=== PATIENT | female | born 1955 | race Caucasian/White ===

== ENCOUNTER → 2016-11-27 | Outpatient (CLI) | payer OTHER ==
[~2016-11-27] MED LIST: ALBU18002 PO; ALBU1AER9 INH; ASPI325T45 PO; ASPI81TA28 PO; ATOR10TA88 PO; AZITTAB PO; CLOT10TR MT; CLR10 PO; DIPH25TA24 PO; DULO-24 PO; FEXO1TAB46 PO; FLEC50TA PO; FLUT0.15; FURO80TA63 PO; METF-384 PO; METO100T7 PO; MONT1TAB3 PO; MRN5 PO; NAPR1TAB9 PO; POTA-335 PO; POTA10CA28 PO; POTA20TA13 PO; PRLSR20 PO; PROAIR INH; PROC1TAB5 PO; SENN-63 PO; SPIR50TA3 PO; SYMIN160 INH; TIOTCAP INH; ULT/50 PO; UMEC1INH INH; XRL20 PO
--- NOTE | 2016-11-27 09:32 | DIAGNOSTIC IMAGING REPORT ---
CT OF THE CHEST WITHOUT IV CONTRAST CLINICAL HISTORY: Solitary pulmonary nodule. COMPARISON STUDY: Chest CT April 04, 2016. CT DOSE: 984.15 mGy.cm TECHNIQUE: Axial images of the chest were obtained without IV contrast. Images were reviewed in the axial, sagittal, and coronal planes. IV contrast was not administered for this examination. FINDINGS: No enlarged axillary, mediastinal or hilar lymph nodes are present. The previously described 3.9 x 2.3 cm hyperdense anterior mediastinal mass is similar to prior exams. 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 The size of the heart is at the upper limits of normal. There is no pericardial effusion. The central airways are patent. Mild emphysema is noted. A 1.4 cm irregular subpleural nodule within the superior segment of the left lower lobe shown on image 143 of 336 has increased in size since exam of April 04, 2016. No additional suspicious pulmonary nodules are present. No suspicious osseous lesions are identified. A 1.3 cm lesion arising from the upper pole of the left kidney measures just above water attenuation. IMPRESSION: 1. Interval increase in size of the 1.4 cm irregular subpleural nodule within the superior segment of the left lower lobe. This is highly suggestive of bronchogenic carcinoma. 2. No thoracic lymphadenopathy. 3. Mild emphysema. 4. 1.3 cm lesion arising from the upper pole of the left kidney which is suboptimally assessed on this unenhanced exam. This measures just above water attenuation. This is indeterminate although a cyst is favored. 5. No significant change in the 3.9 cm hyperdense anterior mediastinal mass since earlier exams. 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 Electronically signed by: Sandor Ibrahim M.D. 11/27/2016 9:30 AM Dictated Date/Time: 11/27/2016 9:16 AM
== END | disposition home or self-care (01) ==
LOC: C.CTS 08:56
PROVIDERS: ATTEND Internal Medicine Pulmonary Disease
DX: R91.1 Solitary pulmonary nodule (principal)

== ENCOUNTER → 2016-12-03 | Outpatient (CLI) | payer OTHER ==
[2016-12-03 17:52] LABS: BLOOD UREA NITROGEN 36 mg/dl (7-18); BUN/CREATININE RATIO 27.7 (10-20); CALCIUM 9.7 mg/dl (8.5-10.1); CARBON DIOXIDE 27 mmol/L (21-32); CHLORIDE 100 mmol/L (98-107); GLUCOSE 112 mg/dl (70-99); POTASSIUM 4.5 mmol/L (3.5-5.1); SODIUM 137 mmol/L (136-145)
== END | disposition home or self-care (01) ==
LOC: C.LABBFT 13:09
PROVIDERS: ATTEND Internal Medicine
DX: N28.9 Disorder of kidney and ureter, unspecified (principal)

== ENCOUNTER → 2016-12-17 | Outpatient (CLI) | payer OTHER ==
--- NOTE | 2016-12-17 10:46 | DIAGNOSTIC IMAGING REPORT ---
PET/CT CLINICAL HISTORY: Pulmonary nodule. COMPARISON STUDY: Chest CT dated 11/27/2016 and 08/24/2015. Abdominal CT dated 08/26/2013. TECHNIQUE: One hour following the IV administration of 15.98 mCi of F-18 FDG, PET/CT examination was performed from the orbital meatal line through the bony pelvis. Noncontrast CT is performed for the purposes of anatomic correlation and attenuation correction. Note that this does not reflect a diagnostic CT examination. Images were reviewed on a separate [employer] independent workstation. Fused images were obtained. Standard uptake values reported are maximum values within the region of interest expressed in gm/mL. FINDINGS: PET FINDINGS: Head and neck: There is expected physiologic activity within the visualized brain parenchyma at the skull base and the salivary glands. Low level pharyngeal activity is indeterminant. Thorax: Evaluation of the thorax demonstrates expected physiologic myocardial activity. Again seen is a 12 mm irregular left lower lobe pulmonary nodule seen on axial image #82. This is demonstrably FDG avid, with a maximum SUV of 4.4. No additional pulmonary lesions are seen. No FDG avid mediastinal lymphadenopathy is identified. There is a lobulated soft tissue nodule in the anterior mediastinum measuring 2.2 x 4.2 cm. This has not significant changed in size dating back to the 08/24/2015 examination and contains small calcifications. This was not demonstrably FDG avid by PET. Abdomen and pelvis: There is expected activity within the liver, spleen, kidneys, renal collecting system, and bladder. Low-level bowel activity is likely within physical limits. Unenhanced CT images: Visualized brain parenchyma at the skull base is within normal limits. The bony orbits are intact and the orbital contents are normal as visualized. The paranasal sinuses and mastoid air cells appear clear. A calcified sialolith is noted in the right parotid gland. The salivary glands are otherwise normal as visualized. The thyroid gland is mildly atrophic. No cervical lymphadenopathy is seen. The thoracic aorta is normal in caliber. The heart is normal in size and without pericardial effusion. A small hiatal hernia is noted. There is no axillary or hilar adenopathy. Advanced emphysema is noted. There is subpleural reticulation seen throughout both lungs. No airspace consolidation is identified typical for pneumonia and there is no pleural effusion. See above under PET findings for assessment of a left lower lobe pulmonary nodule. The unenhanced liver, pancreas, spleen, and adrenal glands are grossly normal. The kidneys demonstrate cortical atrophy and are without hydronephrosis. Small right renal cysts are again noted. These were also seen on the [address] The gallbladder is surgically absent. No bowel obstruction is identified. Findings suggest previous appendectomy. There is moderate colonic fecal retention. No intraperitoneal free air or abdominal ascites is identified. There is a fat-containing umbilical hernia. No abdominal, pelvic, or inguinal lymphadenopathy is seen. The bladder is decompressed and grossly unremarkable. The uterus and adnexa are normal as visualized. The skeletal structures are osteopenic. No lytic or blastic lesions are identified. Advanced sclerotic change is noted in the sacroiliac joints. Degenerative change is also present throughout the spine. IMPRESSION: 1. Again seen is a 12 mm irregular left lower lobe pulmonary nodule. This is FDG avid and should be considered neoplastic until proven otherwise. 2. There is no evidence of FDG avid metastatic disease. 3. A lobulated and calcification containing anterior mediastinal lesion has not significantly changed dating back to 08/24/2015 and was not demonstrably FDG avid. This is of low suspicion. 4. No FDG avid mediastinal or hilar adenopathy is identified. 5. Emphysema. 6. Additional changes as above. Electronically signed by: Wilner Melo M.D. 12/17/2016 10:44 AM Dictated Date/Time: 12/17/2016 10:32 AM
== END | disposition home or self-care (01) ==
LOC: C.PET 08:12
PROVIDERS: ATTEND Surgery
DX: R91.1 Solitary pulmonary nodule (principal)

== ENCOUNTER → 2016-12-22 | Outpatient (CLI) | payer OTHER ==
[~2016-12-22] MED LIST changes: -ASPI325T45 PO; -CLOT10TR MT; -CLR10 PO; -DIPH25TA24 PO; -FEXO1TAB46 PO; -NAPR1TAB9 PO; -SENN-63 PO; -TIOTCAP INH
[2016-12-22 12:32] LABS: BASO % 0.8 %; BASO ABS # 0.09 K/uL (0-0.2); COMPLETE YES; EOS % 2.7 %; HEMATOCRIT 42.8 % (37-47); IG% 1.1 %; LYMPH % 26.7 %; LYMPH ABS # 2.93 K/uL (1.2-3.4); MEAN CELL VOLUME 90.3 fL (80-100); MEAN CORPUSCULAR HGB CONC 33.2 g/dl (32-36); MEAN PLATELET VOLUME 9.3 fL (7.4-10.4); MONO % 7.8 %; NEUT % 60.9 %; PLATELET COUNT 369 K/uL (130-400); RED BLOOD COUNT 4.74 M/uL (4.2-5.4); WHITE BLOOD COUNT 10.96 K/uL (4.8-10.8)
== END | disposition home or self-care (01) ==
LOC: C.LABPBG 09:38
PROVIDERS: ATTEND Surgery
DX: Z01.812 Encounter for preprocedural laboratory examination (principal); R91.1 Solitary pulmonary nodule

== ENCOUNTER 2016-12-24 05:07 | Day surgery (SDC) | payer OTHER ==
[2016-12-17 14:24] VITALS: BMI 40.0
[~2016-12-24] VITALS: Ht 167.6 cm; Wt 111.8 kg
[~2016-12-24 05:07] MED LIST changes: -ALBU18002 PO; -ASPI81TA28 PO; -ATOR10TA88 PO; -AZITTAB PO; -DULO-24 PO; -FLEC50TA PO; -FLUT0.15; -FURO80TA63 PO; -METF-384 PO; -METO100T7 PO; -MONT1TAB3 PO; -MRN5 PO; -POTA10CA28 PO; -POTA20TA13 PO; -PRLSR20 PO; -PROAIR INH; -PROC1TAB5 PO; -SPIR50TA3 PO; -SYMIN160 INH; -ULT/50 PO; -UMEC1INH INH; -XRL20 PO
[2016-12-24 05:46] VITALS: BP 124/76; PULSE 74; TEMP 36.8; O2SAT 97; Ht 167.6 cm; Wt 111.8 kg
[2016-12-24] MEDS ORDERED: LACTATED RINGER'S 1000ML 1,000 ML IV SCH (06:00)
[2016-12-24] MEDS ORDERED: FENTANYL CITRATE INJ 50 MCG/1 ML 2 ML VIAL ONE (06:47)
[2016-12-24] MEDS ORDERED: MIDAZOLAM HCL 1 MG/ML 2ML VIAL ONE (06:47)
[2016-12-24] MEDS ORDERED: ALBUT/IPRATROP 3MG/0.5MG NEB 3 ML VIAL ONE (06:54)
--- NOTE | 2016-12-24 06:57 | History & Physical Bridge Note ---
H&P Re-Evaluation Bridge Note: I have examined the patient, reviewed the History & Physical and in the interval since the performance of the History & Physical I have noted the following changes of clinical significance: No changes noted
[2016-12-24] MEDS ORDERED: CLINDAMYCIN PHOS 150 MG/ML 2 ML VIAL ONE (07:26)
--- NOTE | 2016-12-24 07:40 | Discharge Instructions ---
Discharge Instructions Visit Reason for Visit: Left Lung Mass Discharge Discharge Diagnosis / Problem: Left Lung Mass Discharge Goals Goal(s): Learn about illness Activity Recommendations Activity Limitations: resume your previous activity (in 24 hours) Anesthesia . Post Anesthesia Instructions: If you have had General Anesthesia or IV Sedation: * Do not drive today. * Resume driving when surgeon permits. * Do not make important decisions or sign legal documents today. * Call surgeon for: 1. Temperature elevations greater than 101 degrees F. 2. Uncontrollable pain. 3. Excessive bleeding. 4. Persistent nausea and vomiting. 5. Medication intolerance (nausea, vomiting or rash). * For nausea and vomiting use only clear liquids such as: tea, soda, bouillon until nausea subsides, then gradually increase diet as tolerated. * If you have any concerns or questions, call your surgeon's office. If physician is unavailable and it is an emergency, call 911 or go to the nearest emergency room. . Instructions / Follow-Up Instructions / Follow-Up 1. You may cough up blood. Call physician if excessive amount noted. 2. Keep your scheduled appointment with Dr. Sands on January 15 @11:45. Diet Recommendations Recommended Home Diet: resume previous diet Pending Studies Studies pending at discharge: no Medical Emergencies . Who to Call and When: Medical Emergencies: If at any time you feel your situation is an emergency, please call 911 immediately. . Non-Emergent Contact Non-Emergency issues call your: Surgeon Call Non-Emergent contact if: you have a fever, your pain is not controlled . . "Provider Documentation" section prepared by Manuel Parikh.
[2016-12-24] MEDS ORDERED: PROPOFOL IV EMULSION 10 MG/ML 20 ML VIAL IV ONE (07:42)
[2016-12-24] MEDS ORDERED: GLYCOPYRROLATE INJ 0.2 MG/ML VIAL ONE ×2 (07:42)
[2016-12-24] MEDS ORDERED: ONDANSETRON INJ 2 MG/ML 2 ML VIAL ONE (07:42)
[2016-12-24] MEDS ORDERED: LIDOCAINE HCL 2% 2 ML VIAL (20MG/ML) ONE (07:42)
[2016-12-24] MEDS ORDERED: DEXAMETHASONE SOD INJ 4 MG/ML VIAL ONE (07:42)
[2016-12-24] MEDS ORDERED: ROCURONIUM BROMIDE 10 MG/ML 5 ML VIAL ONE (07:42)
[2016-12-24] MEDS ORDERED: NEOSTIGMINE METHYLSULFATE 5 MG/5 ML SYR ONE (07:42)
[2016-12-24] MEDS ORDERED: EpHEDrine SULFATE INJ 50 MG/ML AMP IV PRN (08:00)
[2016-12-24] MEDS ORDERED: FENTANYL CITRATE INJ 50 MCG/1 ML 2 ML VIAL IV PRN (08:00)
[2016-12-24] MEDS ORDERED: HYDROmorphone INJ 2 MG/ML SYR/VIAL IV PRN (08:00)
[2016-12-24] MEDS ORDERED: ONDANSETRON INJ 2 MG/ML 2 ML VIAL IV PRN (08:00)
[2016-12-24] MEDS ORDERED: LABETALOL HCL IV 5 MG/ML 20ML IV PRN (08:00)
[2016-12-24] MEDS ORDERED: FLUMAZENIL 0.1 MG/1 ML 10 ML VIAL IV PRN (08:00)
[2016-12-24] MEDS ORDERED: PHENYLEPHRINE 100MCG/ML 5ML SYR IV PRN (08:00)
[2016-12-24] MEDS ORDERED: NALOXONE HCL 0.4 MG/1 ML VIAL/CARP IV PRN (08:00)
[2016-12-24] MEDS ORDERED: MEPERIDINE HCL 25 MG/ML CARP IV PRN (08:00)
[2016-12-24] MEDS ORDERED: ATROPINE SULFATE 0.1 MG/ML 5ML SYR IV PRN (08:00)
--- NOTE | 2016-12-24 08:35 | DIAGNOSTIC IMAGING REPORT ---
INTRAOPERATIVE FLUOROSCOPIC SPOT FILM OF THE CHEST CLINICAL HISTORY: NAVIGATIONAL BRONCH COMPARISON STUDY: 08/26/2015 FINDINGS: 94 seconds of fluoroscopic time was utilized. A single fluoroscopic spot image demonstrates a bronchoscopic catheter projected over the left midlung zone. IMPRESSION: Fluoroscopic spot image of the chest during navigational bronchoscopy Electronically signed by: Torres Li M.D. 12/24/2016 8:33 AM Dictated Date/Time: 12/24/2016 8:32 AM
--- NOTE | 2016-12-24 08:57 | DIAGNOSTIC IMAGING REPORT ---
CHEST ONE VIEW PORTABLE CLINICAL HISTORY: Left lung mass. History fiber optic bronchoscopy. Evaluate for pneumothorax. COMPARISON STUDY: 08/26/2013 FINDINGS: The heart is mildly enlarged. There is elevation of the interstitium, possibly indicating mild pulmonary vascular congestion/fluid overload. There is no lobar consolidation. There is no pneumothorax.[ IMPRESSION: No evidence of pneumothorax status post bronchoscopy. Electronically signed by: Torres Li M.D. 12/24/2016 8:55 AM Dictated Date/Time: 12/24/2016 8:54 AM
--- NOTE | 2016-12-24 09:01 | Anesthesiology Progress Note ---
Anesthesia Post Op Note Date & Time Dec 24, 2016 at 09:00 Vital Signs Pain Intensity: 0 Vital Signs Past 12 Hours Date Time Temp Pulse Resp B/P Pulse Ox O2 Delivery O2 Flow Rate FiO2 12/24/16 08:50 66 20 112/65 100 Mask 10 12/24/16 08:40 72 20 120/67 100 Mask 10 12/24/16 08:31 36.4 74 22 120/69 100 Mask 10 12/24/16 05:46 36.8 74 16 124/76 97 Room Air Notes Mental Status: alert / awake / arousable, participated in evaluation Pt Amnestic to Procedure: Yes Nausea / Vomiting: adequately controlled Pain: adequately controlled Airway Patency, RR, SpO2: stable & adequate BP & HR: stable & adequate Hydration State: stable & adequate Anesthetic Complications: no major complications apparent The patient did well. She is awake and at her baseline.
[2016-12-24 09:15] VITALS: BP 112/57; PULSE 66; TEMP 36.8; O2SAT 96
[2016-12-24 09:45] VITALS: BP 110/54; PULSE 68; O2SAT 93
[2016-12-24 10:14] VITALS: BP 130/65; PULSE 71; TEMP 36.8; O2SAT 95
--- NOTE | 2016-12-24 10:19 | OPERATIVE REPORT ---
DATE OF OPERATION: 12/24/2016 PREOPERATIVE DIAGNOSIS: Hypermetabolic left lower lobe mass. POSTOPERATIVE DIAGNOSIS: Same. PROCEDURE: 1. Endobronchial ultrasound with biopsy. 2. Navigational bronchoscopy with biopsy. SURGEON: Dr. Sands. BOARD OF DIRECTORS: Jakob Parikh PA-C. ANESTHESIA: General anesthesia endotracheal intubation. INDICATION FOR PROCEDURE AND FINDINGS: Ms. Schilling is a smoker who was found to have a nodule which is hypermetabolic in her left lower lobe. A PET scan showed no evidence of metastatic disease. I brought her to the operating room today on 12/24/2016 for staging endobronchial ultrasound with biopsy as well as a biopsy of this mass. The patient underwent an uncomplicated biopsy. We got good lymph node samples at least 4 lymph node stations. We got into no bleeding. We also biopsied this mass with the brushes and needle biopsies with washings. The preliminary did not show evidence of cancer. She tolerated it well. OPERATION AND FINDINGS: PROCEDURE: The patient was brought to the operating room and laid in supine position. General anesthesia induced and endotracheal intubation was performed. After appropriate timeout had been called and prophylactic antibiotics had been given the endobronchial ultrasound scope was placed. This was a left lower lobe mass. For this reason, I initially went to the right level 10 area and biopsied this 3 separate times under ultrasound guidance. I then went to the right level 4 and did the same. I then went to the level 7 node and biopsied this 3 separate times. We got good lymph node samples on each of these 3 stations. I then went to the level 4 and this node was very small. I biopsied it several times. We did not get good lymph node tissue from this. I then went to level 10 area on the left and biopsied this several times. We did get good lymph node tissue with this. All the lymph node tissue appeared to be benign. We really got into no significant bleeding. I irrigated out both airways. I then removed the endobronchial ultrasound scope and placed a regular fiberoptic scope. I closely inspected each airway. I did not see any abnormalities down to the tertiary airways. We saw no bleeding from the endobronchial ultrasound biopsy sites. We then registered the airways without difficulty. I then went down to the left lower lobe bronchus and placed the navigational probe into the proper position and navigated to the lesion. The lesion was peripheral in the superior segment left lower lobe. We were able to get out there to it nicely under computer guidance. I then placed the radial ultrasound probe and could see that we were close to the mass. We then did several brushes of this as well as several needle biopsies. I then did washings. She tolerated it quite well. We really got into no bleeding. I slowly withdrew the fiberoptic bronchoscope and suctioned out any mucous or sputum that we saw. She tolerated it quite well. I attest to the content of the Intraoperative Record and any orders documented therein. Any exceptio ns are noted below.
[2017-03-29] MEDS ORDERED: METF-384 PO (13:01)
[2017-03-29] MEDS ORDERED: ATOR10TA88 PO (13:01)
[2017-03-29] MEDS ORDERED: SYMIN160 INH (13:01)
[2017-03-29] MEDS ORDERED: METO100T7 PO (13:01)
[2017-03-29] MEDS ORDERED: SPIR50TA3 PO (13:01)
[2017-03-29] MEDS ORDERED: FLEC50TA PO (13:01)
[2017-03-29] MEDS ORDERED: DULO-24 PO (13:01)
[2017-03-29] MEDS ORDERED: MONT1TAB3 PO (13:01)
[2017-03-29] MEDS ORDERED: ULT/50 PO (13:01)
[2017-03-29] MEDS ORDERED: PRLSR20 PO (13:33)
[2017-03-29] MEDS ORDERED: FURO80TA63 PO (13:33)
[2017-03-29] MEDS ORDERED: ASPI81TA28 PO (14:24)
[2017-03-29] MEDS ORDERED: FLUT0.15 (14:24)
[2017-03-29] MEDS ORDERED: UMEC1INH INH (14:24)
== END 2016-12-24 10:18 | disposition home or self-care (01) ==
LOC: C.OR 05:07
PROVIDERS: ATTEND Surgery
DX: R91.1 Solitary pulmonary nodule (principal); R06.02 Shortness of breath; J44.9 Chronic obstructive pulmonary disease, unspecified; F17.210 Nicotine dependence, cigarettes, uncomplicated; R73.09 Other abnormal glucose; N28.9 Disorder of kidney and ureter, unspecified; M54.9 Dorsalgia, unspecified; E11.9 Type 2 diabetes mellitus without complications; E78.00 Pure hypercholesterolemia, unspecified; E55.9 Vitamin D deficiency, unspecified; E04.1 Nontoxic single thyroid nodule; G47.30 Sleep apnea, unspecified; I48.0 Paroxysmal atrial fibrillation

== ENCOUNTER 2017-01-14 09:32 | Inpatient (IN) | payer OTHER ==
[2017-01-12 15:42] VITALS: BMI 40.0
[~2017-01-14] VITALS: Ht 167.6 cm; Wt 113.4 kg
[2017-01-14] VITALS (18 sets, daily range): BP systolic 83–129; BP diastolic 41–71; PULSE 61–78; TEMP 36.6–37.8; O2SAT 94–98; Ht 167.6 cm; Wt 113.4 kg
[~2017-01-14 09:32] MED LIST changes: +SODIUM CHLORIDE 0.9% 1000ML 1,000 ML IV SCH
[2017-01-14] MEDS ORDERED: MIDAZOLAM HCL 1 MG/ML 2ML VIAL ONE ×2 (11:48→11:52)
[2017-01-14] MEDS ORDERED: FENTANYL CITRATE INJ 50 MCG/1 ML 2 ML VIAL ONE ×2 (11:52→19:23)
[2017-01-14] MEDS ORDERED: SODIUM CHLORIDE 0.9% PF 50 ML VIAL ONE (12:05)
[2017-01-14] MEDS ORDERED: BUPIVACAINE LIPOSOME 1/3% 266 MG/20 ML VIAL INFIL ONE (12:05)
[2017-01-14] MEDS ORDERED: ALBUT/IPRATROP 3MG/0.5MG NEB 3 ML VIAL INH ONE (12:15)
[2017-01-14] MEDS ORDERED: PHENYLEPHRINE 100MCG/ML 5ML SYR IV PRN (12:15)
[2017-01-14] MEDS ORDERED: EpHEDrine SULFATE INJ 50 MG/ML AMP IV PRN (12:15)
[2017-01-14] MEDS ORDERED: ATROPINE SULFATE 0.1 MG/ML 5ML SYR IV PRN (12:15)
[2017-01-14] MEDS ORDERED: ONDANSETRON INJ 2 MG/ML 2 ML VIAL IV PRN ×2 (12:15→19:15)
[2017-01-14] MEDS ORDERED: HYDROmorphone INJ 2 MG/ML SYR/VIAL IV PRN (12:15)
[2017-01-14] MEDS ORDERED: LIDOCAINE HCL 2% 2 ML VIAL (20MG/ML) ONE ×2 (13:17→13:52)
[2017-01-14] MEDS ORDERED: ONDANSETRON INJ 2 MG/ML 2 ML VIAL ONE (13:52)
[2017-01-14] MEDS ORDERED: NEOSTIGMINE METHYLSULFATE 5 MG/5 ML SYR ONE (13:52)
[2017-01-14] MEDS ORDERED: GLYCOPYRROLATE INJ 0.2 MG/ML VIAL ONE (13:52)
[2017-01-14] MEDS ORDERED: PROPOFOL IV EMULSION 10 MG/ML 20 ML VIAL IV ONE (13:52)
[2017-01-14] MEDS ORDERED: DEXAMETHASONE SOD INJ 4 MG/ML VIAL ONE (13:52)
[2017-01-14] MEDS ORDERED: PHENYLEPHRINE HCL INJ 10 MG/ML VIAL ONE (15:07)
[2017-01-14] MEDS ORDERED: SODIUM CHLORIDE 0.9% 1000ML 1,000 ML IV SCH (19:15)
[2017-01-14] MEDS ORDERED: OXYCODONE HCL IR 5 MG TAB (IMMEDIATE RELEASE) PO PRN (19:15)
--- NOTE | 2017-01-14 19:57 | Critical Care Consultation ---
Critical Care Consultation Date of Consultation: Jan 14, 2017. Attending Physician: Deuce Sands MD Reason for Consultation: Robotic wedge resection of left lower lobe mass with lymph node biopsies, and limited thoracotomy to remove left lower lobe History of Present Illness Marycarmen Schilling is a 61-year-old female smoker who presented to the ICU status post robotic wedge resection of a left lower lobe mass including lymph node biopsy by Dr. Deuce Sands. She was extubated upon arriving to the ICU with anesthesiology still present. She was initially hypotensive on both peripheral blood pressure cuff and arterial line. Patient had fluids running blood pressure continued to improve. During the procedure it was determined that the mass was indeed non-small cell lung carcinoma but appear to be squamous cell and therefore required robotic wedge resection of that left lower lobe mass. According to operative record there was some difficulty with ventilation and therefore the robotic aspect was terminated and the surgeon proceeded with a limited thoracotomy performed on the anterior lateral left side. Upon arriving in the ICU patient was still drowsy and under significant sedation effects. As she became slightly more arousable she was vulgar but was overwhelmingly agreeable. I need his current history for current lung mass was found due to a workup for exertional dyspnea. During a recent CT 14 mm left lower lobe nodule was discovered to be slightly larger than 2 years prior and was thus followed up. This patient is a continued tobacco user; 2 packs per day times 53 years. Recent pulmonary function studies were normal with an FEV1 of 2.28 L, normal diffusion capacity when corrected for alveolar volume, slight elevation of the residual volume according to surgeons outpatient records. Patient has started following up with Dr. Cortez Pacheco neon glass blower for solitary pulmonary nodule as well. Otherwise patient follows with Dr. Wright for proximal atrial fibrillation at which point she underwent a nuclear stress test in 2008 which was normal revealing no myocardial ischemia. EF of 60% with mild mitral regurg/tricuspid regurg on a 2009 echocardiogram. Patient is diabetic on metformin and follows with Dr. Galo for primary care. Patient was still under sedation during my visit. She did appear to be in pain when disturbing her left thorax by either rolling her or moving her left arm. She did state her pain was a 3 out of 10; however, this did not seem consistent with her behavior. Otherwise patient complained of no other pain no numbness or tingling of extremities, no fever or chills, no chest pain or abdominal pain. Past Medical/Surgical History Medical Problems: Appendicitis Cholecystitis Allergic rhinitis Depression Pelvic pain Candidiasis of the mouth Edema Osteopenia Vaginal candidiasis Gout Diabetes mellitus Gastroesophageal reflux disease Herpes zoster Dyslipidemia Hypertension Morbid obesity paroxysmal atrial fibrillation Pyloric channel ulcer Sleep apnea Solitary pulmonary nodule Solitary thyroid nodule Umbilical hernia Urinary tract infection Urinary incontinence Vitamin D deficiency Surgical history Appendectomy Cholecystectomy Colonoscopy Dilation and curettage Knee arthroplasty Oral surgery Thoracotomy Left lower lobe wedge resection Family History Diabetes mellitus SISTER FHx: arthritis SISTER FHx: coronary artery disease MOTHER SISTER Hypertension SISTER Social History Smoking Status: Current Every Day Smoker (2 packs per day since age 8) Smokeless Tobacco Use: No Alcohol Use: socially (mainly on holidays) Drug Use: none Marital Status: Occupation Status: unemployed Allergies Coded Allergies: Diltiazem (Verified Allergy, Severe, SHORTNESS OF BREATH AND SWELLING OF HANDS AND FACE, 01/12/17) Adhesives (Verified Allergy, Mild, BLISTERS, 01/12/17) Latex1 -Allergic Contact Dermititis (Verified Allergy, Mild, RASH, 01/12/17 ) Indomethacin (Unverified Allergy, Unknown, per pulm note , 01/12/17) Penicillins (Verified Allergy, Unknown, WELTS IN MOUTH AND SPREAD TO BODY , 01/12/17) Codeine (Verified Adverse Reaction, Mild, N&V&GI PAIN, 01/12/17) Paroxetine (Verified Adverse Reaction, Unknown, GI SYMPTOMS, 01/12/17) Varenicline (Verified Adverse Reaction, Unknown, GI SYMPTOMS, 01/12/17) Home Medications Scheduled Aspirin (Aspirin Ec), 81 MG PO AFTERNOON Atorvastatin (Lipitor), 10 MG PO HS Budesonide/Formoterol Fumarate (Symbicort 160/4.5 Inhaler), 2 PUFFS INH BID Duloxetine Hcl (Cymbalta), 40 MG PO QAM Flecainide Acetate (Tambocor), 50 MG PO TID Fluticasone Propionate (Nasal) (Flonase Allergy Relief), 1 SPRAY NA DAILY Furosemide (Lasix), 160 MG PO BID Metformin Hcl (Glucophage), 1,000 MG PO BID Metoprolol Succinate (Toprol Xl), 100 MG PO TID Montelukast Sodium (Singulair), 10 MG PO HS Omeprazole (Prilosec), 20 MG PO BID Potassium Chloride (Micro-K Ext Rel), 20 MEQ PO 5XD Spironolactone (Aldactone), 50 MG PO BID Tramadol Hcl (Ultram), 100 MG PO TID Umeclidinium [place] (Incruse Ellipta), 1 PUFF INH QAM Scheduled PRN Albuterol Sulfate (Proair Hfa), 2 PUFFS INH QID PRN for SOB/Wheezing Current Inpatient Medications Current Inpatient Medications Medications (Trade) Dose Ordered Sig/Armani Route Start Time Stop Time Status Last Admin Dose Admin Sodium Chloride (Nss 1000ml) 1,000 ml @ 15 mls/hr Q24H IV 01/14/17 06:00 01/15/17 05:59 Aspirin (Ecotrin Tab) 81 mg DAILY PO 01/15/17 09:00 02/14/17 08:59 Atorvastatin Calcium (Lipitor Tab) 10 mg HS PO 01/14/17 21:00 02/13/17 20:59 Budesonide/ Formoterol Fumarate (Symbicort 160/ 4.5 Inh) 2 puffs BID INH 01/14/17 21:00 02/13/17 20:59 Duloxetine HCl (Cymbalta Cap) 40 mg QAM PO 01/15/17 09:00 02/14/17 08:59 Flecainide Acetate (Tambocor Tab) 50 mg TID PO 01/14/17 21:00 02/13/17 20:59 Fluticasone Propionate (Flonase Nasal [place]) 1 sprays DAILY NA 01/15/17 09:00 02/14/17 08:59 Metoprolol Succinate (Toprol Xl Tab) 100 mg TID PO 01/14/17 21:00 02/13/17 20:59 Montelukast Sodium (Singulair Tab) 10 mg HS PO 01/14/17 21:00 02/13/17 20:59 Tramadol HCl (Ultram Tab) 100 mg TID PRN PO 01/14/17 21:00 02/13/17 20:59 Pantoprazole Sodium (Protonix Tab) 40 mg BID PO 01/14/17 21:00 02/13/17 20:59 Miscellaneous Information (Order Awaiting Action) 1 ea QS N/A 01/15/17 00:00 02/14/17 00:00 Insulin Aspart (novoLOG ASPART) SLIDING SCALE G... ACHS SC 01/14/17 21:00 02/13/17 20:59 Albuterol/ Ipratropium 3 ml 3 ml QIDR INH 01/14/17 20:00 02/13/17 19:59 Acetaminophen/ Empty Bag (Ofirmev Iv/ Empty Iv Bag 100ml) 100 ml @ 400 mls/hr Q8H IV 01/14/17 20:00 02/13/17 19:14 Enoxaparin Sodium (Lovenox Inj) 40 mg DAILY SQ 01/15/17 09:00 02/14/17 08:59 UNV Ondansetron HCl (Zofran Inj) 4 mg Q4H PRN IV 01/14/17 19:15 02/13/17 19:14 Docusate Sodium 100 mg 100 mg BID PO 01/14/17 21:00 02/13/17 20:59 Clindamycin Phosphate/Dextrose (Cleocin Iv/ Dextrose Add-[place] 100ML) 106 ml @ 100 mls/hr Q6H IV 01/14/17 20:00 01/15/17 03:04 Metoclopramide HCl (Reglan Inj) 10 mg Q8 IV. 01/14/17 22:00 01/15/17 21:59 Morphine Sulfate (MoRPHine SULFATE INJ) Q1H PRN IV 01/14/17 19:15 01/28/17 19:14 Oxycodone HCl 5 mg 5 mg Q6H PRN PO 01/14/17 19:15 01/28/17 19:14 Sodium Chloride (Nss 1000ml) 1,000 ml @ 75 mls/hr [id number] IV 01/14/17 19:15 02/13/17 19:14 Nicotine (Nicoderm Cq 14MG Patch) 1 patch QAM TD 01/15/17 09:00 02/14/17 08:59 Miscellaneous (Remove Nicoderm Patch) 1 ea HS N/A 01/14/17 21:00 02/13/17 20:59 Review of Systems Review of systems unable to be completely obtained secondary to patient's sedation during arrival to ICU Physical Exam Date Time Temp Pulse Resp B/P Pulse Ox O2 Delivery O2 Flow Rate FiO2 01/14/17 19:39 37 91 22 111/55 90 Humidified Oxygen 50 01/14/17 12:11 66 16 96 Nasal Cannula 2.0 01/14/17 09:55 36.6 61 18 129/71 97 Room Air Vital Signs - as noted Laboratory Data - as noted Physical Exam: General - NAD, drowsy but arousable, cursing at medical staff in the room Eyes - PERRL, EOMI No icterus, gaze conjugate ENT - Mucosa dry with bloody residue throughout, no lesions or candidiasis Neck - Supple, trachea midline, no masses or lymphadenopathy, no JVD or bruits Lungs - No paradoxical chest wall movement, coarse to auscultation bilaterally with scattered wheezing throughout, no rales, or rhonchi, chest tube on left lateral side with surgical dressing dry and intact and draining to water seal; no crepitus or air leak noted Heart - Reg rate and rhythm, No murmur, rubs, clicks, or gallops appreciated Abdomen - BS present, no bruits noted, tympanic to percussion, soft, nontender, nondistended, no organomegaly Extremities -minimal edema, pedal pulses intact Neuro - A&O X 3 Strength extremities equal and appropriate bilaterally Reflexes: Bicep, brachioradialis, patellar, and plantar normal and equal CN:PERRL, EOMI, no facial asymmetry, uvula/tongue midline Laboratory Results Last 24 Hours Test 01/14/17 09:50 Bedside Glucose 118 mg/dl Outpatient labs on 12/22/2016 WBCs 10.96 Hemoglobin 14.2 Hematocrit 42.8 Platelets 369 Sodium 137 Potassium 4.5 Chloride 100 CO2 27 Anion gap 10 Calcium 9.7 Glucose 112 BUN 36 Creatinine 1.3 Diagnostic Results CHEST ONE VIEW PORTABLE HISTORY: Postop. Left lower lobectomy. COMPARISON: Chest 12/24/2016. FINDINGS: There is a left-sided chest tube which terminates in the left upper lung zone. Tiny left pneumothorax identified. Low lung volumes with small bilateral pleural effusions and bibasilar densities. The heart remains mildly enlarged. Mild pulmonary vascular congestion has improved. IMPRESSION: 1. Tiny left pneumothorax. Left-sided chest tube is in good position. 2. Small bilateral pleural effusions and bibasilar densities. Electronically signed by: John Land M.D. 01/14/2017 8:22 PM Dictated Date/Time: 01/14/2017 8:21 PM Assessment & Plan (1) Diabetes (2) Hypotension (3) GERD (gastroesophageal reflux disease) (4) HTN (hypertension) (5) Tobacco abuse (6) Paroxysmal atrial fibrillation (7) Emphysema lung (8) Pulmonary nodule, left (9) Lung mass (10) Hypertension Respiratory: * Postop Day # 0, saturation issues noted during seven-hour procedure * Continue to provide O2 as needed * Chest tube management per Dr. Sands * Continue respiratory regimen including: * DuoNeb every 6 hours * Symbicort BID * Singulair 10mg HS * Surgical pain may be treated with morphine per protocol every hour * ANI: Avoid CPAP/BiPAP secondary to lung resection * Provide incentive spirometer/flutter valve * Monitor on telemetry ID: * CBC in the morning, trend WBCs * Prophylactic antibiotics status post lung resection * Clindamycin 900 mg 2 bags * Monitor fever curve Cardiac: * Hypotensive with arterial line readings less than 90; peripheral blood pressure cuff reading low 100s * Continue fluids: Normal saline 75 mL per hour * No current indication for vasopressors * Continue home medications including: * Metoprolol succinate 100 mg TID once hypotension resolves * Flecainide Acetate 50mg TID * Atorvastatin 10 mg at bedtime * Aspirin 81 mg daily * Monitor on telemetry: Known paroxysmal A. fib currently in normal sinus rhythm at increased risk for atrial fibrillation status post thoracic surgery. Neuro: * Neuro checks per protocol s/p sedation * Continue home Cymbalta 40 mg every morning * Tobacco abuse/dependency: Provide 14 mg NicoDerm patch every morning and remove each night Endocrine * Diabetic on metformin at home, will not continue metformin in the immediate post-surgical setting during admission * Sliding scale insulin with NovoLog in place * Accu-Cheks per protocol * As diet is advanced provide type 2 diabetes heart healthy diet GI: * GERD: Continue Protonix 40 mg by mouth twice a day * Currently still sedated hold diet; initiation of diet pending Dr. Sands's recommendations * Provide Colace 100 mg BID : * Continue normal saline resuscitation 75 mL per hour * Follow daily labs * Strict I's and O's; Shahid in place to gravity MSK: * Out of bed to chair tomorrow * Consider PT/OT CCT: 45 minutes; Not including any billable procedures. Thank you for including us in the care of this patient. Please review Dr. Sunny Maldonado's addendum for further recommendations. I have personally evaluated and examined this patient. I agree with assessment and plan of Ailyn Pressley PA-C. Patients with pain well-controlled postoperatively. May need a little more volume expansion with crystalloid. Successfully extubated by anesthesia upon arrival to the ICU.
--- NOTE | 2017-01-14 20:05 | Anesthesiology Progress Note ---
Anesthesia Post Op Note Date & Time Jan 14, 2017 at 19:58 Vital Signs Pain Intensity: 0 Vital Signs Past 12 Hours Date Time Temp Pulse Resp B/P Pulse Ox O2 Delivery O2 Flow Rate FiO2 01/14/17 19:50 78 22 103/54 91 Humidified Oxygen 50 01/14/17 19:39 37 91 22 111/55 90 Humidified Oxygen 50 01/14/17 12:11 66 16 96 Nasal Cannula 2.0 01/14/17 09:55 36.6 61 18 129/71 97 Room Air Notes Mental Status: alert / awake / arousable, participated in evaluation Pt Amnestic to Procedure: Yes Nausea / Vomiting: adequately controlled Pain: adequately controlled Airway Patency, RR, SpO2: stable & adequate BP & HR: stable & adequate Hydration State: stable & adequate Anesthetic Complications: no major complications apparent Procedure was changed from Robotic VATS to open thoracotomy at approximately 530. Tube malpositioning involving herniation of the bronchial cuff over the juju was also resolved around the same time. Case completed uneventfully. Given the long surgical time and anticipated fluid shifts, the patient was awakened in a seated position and was opening eyes spontaneously and following commands. A glidescope was placed to evaluate her hypopharynx and rule out significant soft tissue swelling.Her oxygen saturations on 50% FIO2 were 95% and she was pulling TV of 350-400 with a respiratory rate of 26. ETCO2 was 40. The patient's respiratory and hemodynamic parameters met criteria for extubation but looked mildly distressed and on questioning the patient shook her head "no" when asked if she "wanted the tube to come out" and shook her head yes when asked if we "should leave it in." She also nodded "yes" to a question of pain. Given this, the patient was given 100mcg of fentanyl after which she fell asleep and her RR went to 18, she still maintained excellent TV and oxygen saturations. She was thus transported to the ICU with an ambu bag on all monitors. Once in the ICU, she was again opening eyes spontaneously and following commands. This time when questioned, she nodded "yes" to removing the ETT and so this was done. The patient did well with extubation and maintained oxygen saturations in the low 90s. Full report was given to the record label internship, including the patient's history of sleep apnea requiring supplemental O2.
--- NOTE | 2017-01-14 20:23 | DIAGNOSTIC IMAGING REPORT ---
CHEST ONE VIEW PORTABLE HISTORY: Postop. Left lower lobectomy. COMPARISON: Chest 12/24/2016. FINDINGS: There is a left-sided chest tube which terminates in the left upper lung zone. Tiny left pneumothorax identified. Low lung volumes with small bilateral pleural effusions and bibasilar densities. The heart remains mildly enlarged. Mild pulmonary vascular congestion has improved. IMPRESSION: 1. Tiny left pneumothorax. Left-sided chest tube is in good position. 2. Small bilateral pleural effusions and bibasilar densities. Electronically signed by: John Land M.D. 01/14/2017 8:22 PM Dictated Date/Time: 01/14/2017 8:21 PM
--- NOTE | 2017-01-14 20:24 | OPERATIVE REPORT ---
DATE OF OPERATION: 01/14/2017 PREOPERATIVE DIAGNOSIS: Hypermetabolic mass, left lower lobe. POSTOPERATIVE DIAGNOSIS: Nonsmall cell lung carcinoma, left lower lobe. PROCEDURE: 1. Robotic wedge resection left lower lobe mass. 2. Robotic lobectomy with lymph node biopsies. 3. Limited thoracotomy to remove the left lower lobe. SURGEON: Dr. Sands. PROFESSOR OF FORESTRY: Jakob Parikh PA-C. INDICATION: This is a very nice 61-year-old smoker, found to have a hypermetabolic mass left lower lobe which was growing. After a long discussion, elected to proceed with a wedge resection of left lower lobe robotically and a robotic lobectomy if this indeed proved to be a nonsmall cell lung carcinoma as I suspected. On 01/14/2017 I took the patient to the operating room and did a robotic wedge resection of left lower lobe mass. Indeed, this was a nonsmall cell lung carcinoma and appeared to be a squamous cell carcinoma. I then mobilized the left lower lobe and took the vein and arterial branches in the posterior fissure. The patient then ran into some difficulty for ventilation. I elected to undock and remove the lobe as I was concerned about the patient's well being. Limited thoracotomy was performed anterolaterally and I divided the bronchus and the remaining fissure and delivered the mass off the field. She tolerated it well. PROCEDURE: The patient was brought to the operating room and placed in supine position. General anesthesia induced and endotracheal intubation was performed. The patient was placed in a right lateral decubitus position. Left chest prepped, draped in usual sterile fashion. Five separate ports were made, two 12 mm ports for the camera and the assistant to the ceo port and two 8 mm ports and a 5 mm port. These were done in about the ninth interspace and tenth interspace. Upon entering the chest we immediately came upon this mass. This was grasped and wedged out and delivered from the field in an Endobag. While waiting for the frozen section I took down the inferior pulmonary ligament, biopsies level 8 and level 9 nodes. I then got around the inferior pulmonary vein quite nicely. The patient's fissures were incomplete. I dissected up posteriorly all the way up to the main pulmonary artery and then the main left pulmonary artery. I then came back and dissected out the posterior fissure. The branch to the superior segment was identified. I then dissected in the fissure and this was a bit difficult as her fissure was incomplete but I finally got down to the artery. This was very slow going given the thickness of the incomplete fissure but finally was able to dissect out enough space where an Endo-DOUGLAS stapler was fired. I then fired a stapler across a large branch of the superior segment. I then came back and was dissecting off the artery and removed a lymph node and identified the lingular artery and then started completing the fissure when the patient ran into trouble. There was a problem with ventilation. I quickly undocked and did an anterior thoracotomy and completed the fissure quite quickly with a stapler and then completed the artery division with the stapler and then stapled the bronchus and delivered the specimen off the field. I dissected out level 10, 11 and 12 nodes. I could not get down to level 7 given the depth. Also I completely removed the pleura around the vagus nerve. I did not see level 5 and 6 node. I elected to close. 266 mg of Exparel was mixed with 60 mL total of saline and was injected into the 2nd to 11th interspace. Bleeding was well controlled. 0 Vicryl was used to close the muscle layers of all the port sites with a single stitch. 4-0 Monocryl was used to close all the incisions. I then used 2 separate #1 PDS pericostal sutures, closed the thoracotomy incision and 0 Polysorb was used to reapproximate the serratus and then the latissimus dorsi muscle. 4-0 Monocryl was used to reapproximate the skin. The patient tolerated it well. I attest to the content of the Intraoperative Record and any orders documented therein. Any exceptio ns are noted below.
[2017-01-14] MEDS: ALBUT/IPRATROP 3MG/0.5MG NEB 3 ML VIAL INH SCH (20:30)
[2017-01-14] MEDS: CLINDAMYCIN IV 900 MG in DEXTROSE 5% ADD-VANTAGE 100ML 100 ML IV SCH (20:43)
[2017-01-14] MEDS: ACETAMINOPHEN IV 1,000 MG in EMPTY BAG 0 ML IV SCH (20:43)
[2017-01-14] MEDS: DOCUSATE SODIUM 100 MG CAP PO SCH (20:47)
[2017-01-14] MEDS: MONTELUKAST SOD 10 MG TAB PO SCH (20:47)
[2017-01-14] MEDS: BUDESONIDE/FORMOTEROL FUMARATE 160/4.5 60 PUFFS/INHALER INH SCH (20:47)
[2017-01-14] MEDS: ATORVASTATIN 10 MG TAB PO SCH (20:47)
[2017-01-14] MEDS: PANTOprazole SOD 40 MG TAB PO SCH (20:47)
[2017-01-14] MEDS: METOPROLOL SUCC 50MG EXT REL TAB PO SCH (20:48)
[2017-01-14] MEDS: FLECAINIDE ACETATE 100 MG TAB PO SCH (20:48)
[2017-01-14] MEDS ORDERED: TRAMADOL HCL 50 MG TAB PO PRN (21:00)
[2017-01-14] MEDS: INSULIN ASPART 100 UNITS/ML 3 ML PEN SC SCH (21:06)
[2017-01-14] MEDS: MoRPHine SULFATE 2 MG/ML CARP IV PRN ×2 (21:46→23:40)
[2017-01-14] MEDS: METOCLOPRAMIDE HCL INJ 5 MG/ML 2 ML VIAL IV. SCH (21:47)
[2017-01-15] VITALS (25 sets, daily range): BP systolic 81–137; BP diastolic 35–86; PULSE 70–139; TEMP 35.5–36.9; O2SAT 91–97
[2017-01-15] MEDS: CLINDAMYCIN IV 900 MG in DEXTROSE 5% ADD-VANTAGE 100ML 100 ML IV SCH (01:43)
[2017-01-15] MEDS: MoRPHine SULFATE 2 MG/ML CARP IV PRN ×3 (02:14→15:54)
[2017-01-15] MEDS: ACETAMINOPHEN IV 1,000 MG in EMPTY BAG 0 ML IV SCH (03:51)
[2017-01-15] MEDS: METOCLOPRAMIDE HCL INJ 5 MG/ML 2 ML VIAL IV. SCH ×2 (05:35→14:19)
[2017-01-15 06:42] LABS: BASO % 0.1 %; BASO ABS # 0.01 K/uL (0-0.2); COMPLETE YES; HEMATOCRIT 36.1 % (37-47); IG% 0.5 %; LYMPH % 7.4 %; LYMPH ABS # 1.25 K/uL (1.2-3.4); MEAN CELL VOLUME 93.3 fL (80-100); MEAN CORPUSCULAR HEMOGLOBIN 30.2 pg (25-34); MEAN CORPUSCULAR HGB CONC 32.4 g/dl (32-36); MEAN PLATELET VOLUME 9.1 fL (7.4-10.4); MONO % 5.7 %; NEUT % 86.3 %; PLATELET COUNT 310 K/uL (130-400); RED BLOOD COUNT 3.87 M/uL (4.2-5.4); WHITE BLOOD COUNT 16.78 K/uL (4.8-10.8)
[2017-01-15] MEDS: INSULIN ASPART 100 UNITS/ML 3 ML PEN SC SCH ×4 (06:45→20:42)
[2017-01-15 06:54] LABS: PARTIAL THROMBOPLASTIN RATIO 1.1; PROTHROMBIN TIME (PATIENT) 10.7 SECONDS (9.0-12.0)
--- NOTE | 2017-01-15 07:03 | DIAGNOSTIC IMAGING REPORT ---
CHEST ONE VIEW PORTABLE CLINICAL HISTORY: s/p LLL COMPARISON STUDY: 01/14/2017 FINDINGS: Stable postoperative changes left hemithorax. Left-sided chest tube in good position. No significant residual pneumothorax. Mild left basilar atelectatic change. Plaque atelectasis right base unchanged IMPRESSION: Stable postoperative changes left hemithorax. No evidence pneumothorax. Electronically signed by: Bryan Johnson M.D. 01/15/2017 7:01 AM Dictated Date/Time: 01/15/2017 6:59 AM
[2017-01-15 07:15] LABS: BUN/CREATININE RATIO 23.6 (10-20); CALCIUM 8.1 mg/dl (8.5-10.1); CREATININE 1.3 mg/dl (0.60-1.20); POTASSIUM 5.6 mmol/L (3.5-5.1)
[2017-01-15] MEDS: ALBUT/IPRATROP 3MG/0.5MG NEB 3 ML VIAL INH SCH ×3 (07:26→19:55)
[2017-01-15] MEDS: DOCUSATE SODIUM 100 MG CAP PO SCH ×2 (08:50→20:37)
[2017-01-15] MEDS: FLUTICASONE PROPIONATE NA SPR 16 GM BTL SCH (08:50)
[2017-01-15] MEDS: BUDESONIDE/FORMOTEROL FUMARATE 160/4.5 60 PUFFS/INHALER INH SCH ×2 (08:50→20:37)
[2017-01-15] MEDS: ACETAMINOPHEN 325 MG TAB PO SCH ×3 (08:50→20:41)
[2017-01-15] MEDS: DULOXETINE HCL 20 MG CAP PO SCH (08:51)
[2017-01-15] MEDS: ASPIRIN 81 MG ECTAB PO SCH (08:51)
[2017-01-15] MEDS: PANTOprazole SOD 40 MG TAB PO SCH ×2 (08:51→20:39)
[2017-01-15] MEDS: METOPROLOL SUCC 50MG EXT REL TAB PO SCH ×3 (08:52→20:38)
[2017-01-15] MEDS: FLECAINIDE ACETATE 100 MG TAB PO SCH ×3 (08:52→20:39)
[2017-01-15] MEDS: ENOXAPARIN 40 MG/0.4 ML SYR SQ SCH (08:53)
[2017-01-15] MEDS: NICOTINE 14 MG/24 HR TDSY TD SCH (08:53)
--- NOTE | 2017-01-15 09:57 | Clinical Documentation Query ---
CLINICAL DOCUMENTATION QUERY 61-y/o female who has undergone robotic LLL wedge resection of lung. In your clinical opinion is this patient being managed for: ( ) CKD stage 3 ( ) Other explanation of clinical findings (Please Explain) ( ) Unable to determine (Please Define) ( ) Need to Discuss ( x) Not Agree The medical record reflects the following clinical findings, treatment, and risk factors. Clinical Indicators: BUN 31, Creatinine 1.30, GFR 43.6. These all appear congruent with patient's baseline. Treatment: daily PRP, IVF Risk Factors: Age Please clarify and document your clinical opinion in the progress notes and discharge summary. Terms such as "probable", "suspected", "likely", "questionable", "possible", or "still to be ruled out" are acceptable. IF IN AGREEMENT, YOU MUST DOCUMENT ABOVE DIAGNOSTIC STATEMENT IN DAILY PROGRESS NOTES AND DISCHARGE SUMMARY. This document is not part of the patient's record. The stages of CKD according to the [employer] are as follows: Stage I: GFR >90 Stage II: GFR 60-89 Stage III: GFR 30-59 Stage IV: GFR 15-29 Stage V: GFR <15 Thank You, Dioni Francis, RN [phone]
--- NOTE | 2017-01-15 10:43 | Critical Care Progress Note ---
Critical Care Progress Note Date of Service Jan 15, 2017. ICU Day ICU Day Number: [address] Maldonado Subjective Doing well this morning Pain is controlled however still a 6/10 States that she has no chest pain but difficult to take a deep breath review of 10 systems completed and negative aside from above Objective General: not in acute distress, resting in bed Skin: no rashes noted, no suspicious lesions, no areas of inflammations/ lacerations/ erythema noted, drainage site clean dry and intact CVS: S1/ S2 noted, RRR, no rubs/ murmurs noted, no cyanosis RVS: decreased to left base > right, occasionally coarse breath sounds noted, poor inspiration because of pain Neck: inspection WNL, full ROM of neck ABD: BSx4, no pain/ tenderness on palpation, no organomegaly MSK: inspection of all limbs WNL, motor and sensation intact in all limbs, no swelling/ pain on palpation of joints NVS: alert and oriented Lymph: No lymphadenopathy palpable Assessment & Plan 1. s/p left lower lobectomy for NSCLC 2. acute hypoxic respiratory failure secondary to difficult intubation/ prolonged procedure- resolved 3. Hypotensive- stable 4. DM 5. GERD 6. HTN 7. Tobacco abuse 8. PAF NVS Alert and oriented - pain control with Dilaudid and norco RVS - POD 1- improved saturation on 4 L of O2 - manipulate prn - Chest tube draining well mange per moris - duoneb q 6 h - symbicort bid - singular 1- mg hs - incentive akila and flutter valve ID: - monitor CBC - was given clinda CVS - continue to monitor - cont metoprolol, flecainide, atorvastatin and asa Endo - Sliding scale insulin with NovoLog in place - Accu-Cheks per protocol - As diet is advanced provide type 2 diabetes heart healthy diet GI: - protonix 40 mg po - colace bid : - monitor I&O ok to downgrade Resident Physician Supervision Note: Dr. Brody was resident physician during care of patient. I did not have the opportunity to evaluate this patient and she was transferred out of the ICU before my personal evaluation. I discussed the case with the resident and generally agree with the findings and plan. Documented By: Sunny Maldonado DO Data Medications: Current Inpatient Medications Medications (Trade) Dose Ordered Sig/Armani Route Start Time Stop Time Status Last Admin Dose Admin Aspirin (Ecotrin Tab) 81 mg DAILY PO 01/15/17 09:00 02/14/17 08:59 01/15/17 08:51 81 MG Atorvastatin Calcium (Lipitor Tab) 10 mg HS PO 01/14/17 21:00 02/13/17 20:59 Budesonide/ Formoterol Fumarate (Symbicort 160/ 4.5 Inh) 2 puffs BID INH 01/14/17 21:00 02/13/17 20:59 01/15/17 08:50 2 PUFFS Duloxetine HCl (Cymbalta Cap) 40 mg QAM PO 01/15/17 09:00 02/14/17 08:59 01/15/17 08:51 40 MG Flecainide Acetate (Tambocor Tab) 50 mg TID PO 01/14/17 21:00 02/13/17 20:59 01/15/17 08:52 50 MG Fluticasone Propionate (Flonase Nasal [place]) 1 sprays DAILY NA 01/15/17 09:00 02/14/17 08:59 01/15/17 08:50 1 SPRAYS Metoprolol Succinate (Toprol Xl Tab) 100 mg TID PO 01/14/17 21:00 02/13/17 20:59 01/15/17 08:52 100 MG Montelukast Sodium (Singulair Tab) 10 mg HS PO 01/14/17 21:00 02/13/17 20:59 Tramadol HCl (Ultram Tab) 100 mg TID PRN PO 01/14/17 21:00 02/13/17 20:59 01/15/17 00:29 100 MG Pantoprazole Sodium (Protonix Tab) 40 mg BID PO 01/14/17 21:00 02/13/17 20:59 01/15/17 08:51 40 MG Miscellaneous Information (Order Awaiting Action) 1 ea QS N/A 01/15/17 00:00 02/14/17 00:00 Insulin Aspart (novoLOG ASPART) SLIDING SCALE G... ACHS SC 01/14/17 21:00 02/13/17 20:59 01/14/17 21:06 2 UNITS Albuterol/ Ipratropium (Duoneb) 3 ml QIDR INH 01/14/17 20:00 02/13/17 19:59 01/15/17 07:26 3 ML Enoxaparin Sodium (Lovenox Inj) 40 mg DAILY SQ 01/15/17 09:00 02/14/17 08:59 01/15/17 08:53 40 MG Ondansetron HCl (Zofran Inj) 4 mg Q4H PRN IV 01/14/17 19:15 02/13/17 19:14 Docusate Sodium (coLACE CAP) 100 mg BID PO 01/14/17 21:00 02/13/17 20:59 01/15/17 08:50 100 MG Metoclopramide HCl (Reglan Inj) 10 mg Q8 IV. 01/14/17 22:00 01/15/17 21:59 01/15/17 05:35 10 MG Morphine Sulfate (MoRPHine SULFATE INJ) Q1H PRN IV 01/14/17 19:15 01/28/17 19:14 01/15/17 09:21 2 MG Oxycodone HCl (Roxicodone Immediate Rel Tab) 5 mg Q6H PRN PO 01/14/17 19:15 01/28/17 19:14 Nicotine (Nicoderm Cq 14MG Patch) 1 patch QAM TD 01/15/17 09:00 02/14/17 08:59 01/15/17 08:53 1 PATCH Miscellaneous (Remove Nicoderm Patch) 1 ea HS N/A 01/14/17 21:00 02/13/17 20:59 Acetaminophen (Tylenol Tab) 650 mg Q6H PO 01/15/17 09:00 02/14/17 08:59 01/15/17 08:50 650 MG I & O: 24-Hour Column 01/15/17 07:59 Intake Total 3394 ml Output Total 1110 ml Balance 2284 ml Vital Signs: Date Time Temp Pulse Resp B/P Pulse Ox O2 Delivery O2 Flow Rate FiO2 01/15/17 10:20 36.4 117 18 118/86 95 Nasal Cannula 2.0 01/15/17 10:00 78 16 96/50 95 Room Air 01/15/17 08:00 95 Nasal Cannula 3.0 01/15/17 08:00 36.5 78 16 96/51 95 Nasal Cannula 3.0 01/15/17 07:26 77 20 95 Mask 3.0 01/15/17 06:01 75 15 100/50 94 81/43 01/15/17 05:01 73 13 87/47 97 84/35 01/15/17 04:01 70 17 101/58 97 88/40 01/15/17 04:00 97 Mask 4.0 01/15/17 04:00 36.6 01/15/17 03:44 75 19 109/64 91 95/46 01/15/17 03:01 73 11 85/45 97 97/43 01/15/17 02:07 79 17 102/53 95 86/40 01/15/17 01:01 74 16 120/61 96 95/46 01/15/17 00:01 36.7 01/15/17 00:01 77 10 110/63 97 95/47 01/15/17 00:00 73 13 92/43 97 01/14/17 23:59 97 Mask 6.0 01/14/17 23:01 74 11 111/66 97 92/43 01/14/17 23:00 78 15 94/43 98 01/14/17 22:15 75 5 97 88/41 01/14/17 22:01 70 14 115/59 96 84/41 01/14/17 22:00 72 15 96 83/42 01/14/17 21:45 73 20 91/46 96 01/14/17 21:30 78 15 86/47 95 01/14/17 21:15 74 17 86/44 97 01/14/17 21:01 74 19 110/64 95 93/46 01/14/17 21:00 76 19 95/47 95 01/14/17 20:45 77 17 92/48 96 01/14/17 20:33 73 20 94 Mask 6.0 01/14/17 20:30 74 18 92/47 94 01/14/17 20:28 105/54 01/14/17 20:00 Mask 6.0 01/14/17 20:00 84 25 97/46 91 Humidified Oxygen 50 01/14/17 20:00 37.8 01/14/17 19:50 78 22 103/54 91 Humidified Oxygen 50 01/14/17 19:39 37 91 22 111/55 90 Humidified Oxygen 50 01/14/17 12:11 66 16 96 Nasal Cannula 2.0 Laboratory Results: Last 24 Hours Test 01/14/17 21:02 01/15/17 05:54 01/15/17 05:56 01/15/17 09:22 Bedside Glucose 193 mg/dl 121 mg/dl White Blood Count 16.78 K/uL Red Blood Count 3.87 M/uL Hemoglobin 11.7 g/dL Hematocrit 36.1 % Mean Corpuscular Volume 93.3 fL Mean Corpuscular Hemoglobin 30.2 pg Mean Corpuscular Hemoglobin Concent 32.4 g/dl Platelet Count 310 K/uL Mean Platelet Volume 9.1 fL Neutrophils (%) (Auto) 86.3 % Lymphocytes (%) (Auto) 7.4 % Monocytes (%) (Auto) 5.7 % Eosinophils (%) (Auto) 0.0 % Basophils (%) (Auto) 0.1 % Neutrophils # (Auto) 14.48 K/uL Lymphocytes # (Auto) 1.25 K/uL Monocytes # (Auto) 0.96 K/uL Eosinophils # (Auto) 0.00 K/uL Basophils # (Auto) 0.01 K/uL RDW Standard Deviation 52.1 fL RDW Coefficient of Variation 15.3 % Immature Granulocyte % (Auto) 0.5 % Immature Granulocyte # (Auto) 0.08 K/uL Prothrombin Time 10.7 SECONDS Prothromb Time International Ratio 1.0 Activated Partial Thromboplast Time 27.6 SECONDS Partial Thromboplastin Ratio 1.1 Sodium Level 138 mmol/L Potassium Level 5.6 mmol/L Chloride Level 104 mmol/L Carbon Dioxide Level 28 mmol/L Anion Gap 6.0 mmol/L Blood Urea Nitrogen 31 mg/dl Creatinine 1.30 mg/dl Est Creatinine Clear Calc Drug Dose 56.7 ml/min Estimated GFR () 50.6 Estimated GFR (Non- 43.6 BUN/Creatinine Ratio 23.6 Random Glucose 144 mg/dl Calcium Level 8.1 mg/dl
[2017-01-15 12:01] LABS: BUN/CREATININE RATIO 22.1 (10-20); CALCIUM 8.5 mg/dl (8.5-10.1); CREATININE 1.3 mg/dl (0.60-1.20); POTASSIUM 5.2 mmol/L (3.5-5.1)
--- NOTE | 2017-01-15 12:24 | CARDIOLOGY CONSULTATION ---
DATE OF CONSULTATION: 01/15/2017 REFERRING PHYSICIAN: Dr. Deuce Sands. PRIMARY CARE PHYSICIAN: Dr. Ok Galo. CHIEF COMPLAINT: Tachycardia. HISTORY OF PRESENT ILLNESS: Ms. Marycarmen Schilling is a 61-year-old woman with a longstanding history of paroxysmal atrial fibrillation. The patient underwent a left lower lung resection yesterday for nonsmall cell lung cancer. The patient was noted this afternoon after transfer from the ICU to have developed a rapid heartbeat and EKG confirmed atrial fibrillation. The patient states that in general, she is feeling well. She has some difficulty taking a deep breath and some mild dyspnea, which is somewhat chronic in nature. She states that she is aware of her atrial fibrillation and rapid heartbeat and occasionally does have episodes of palpitations and tachycardia at home. These episodes appear to be fairly infrequent provided she maintains her routine medical regimen. She states that her last episode was approximately 3 months ago. During these episodes, she commonly will take an extra dose of flecainide and metoprolol and it will resolve within a few hours. It appears that the patient also had an episode of atrial fibrillation associated with a recent appendectomy. At this time, the patient does not describe symptoms of chest discomfort. In fact, she does not report much pain associated with her operation. She has not been ambulatory. She feels that she may have missed some medications last evening. She is not currently dizzy or lightheaded and does not endorse any substernal chest discomfort. In general, the patient is sedentary individual, who has exertional dyspnea that is moderate in severity. She has an extensive workup as an outpatient and continues to smoke 2 packs per day. As previously noted, she does have paroxysmal atrial fibrillation and appears to be on a medical regimen that controlled this quite well as an outpatient. She does report that during interruption of her medical therapy, she often will have an episode of atrial fibrillation. PAST MEDICAL HISTORY: Significant for, 1. The aforementioned paroxysmal atrial fibrillation 2. Obstructive sleep apnea. 3. Tobacco abuse. 4. Obesity. 5. Solitary lung nodule, now felt to be nonsmall cell lung cancer status post resection. 6. Gout. 7. Chronic renal insufficiency. 8. Allergic rhinitis. 9. Bronchospastic asthma. 10. Diabetes mellitus. 11. Gastroesophageal reflux disease. 12. Hypercholesterolemia. 13. History of herpes zoster. 14. Hypertension. PAST SURGICAL HISTORY: Includes an appendectomy, cholecystectomy, dilatation and curettage, history of knee arthroscopy and oral surgery. FAMILY HISTORY: Significant for diabetes mellitus and hypertension, but no premature coronary artery disease. SOCIAL HISTORY: The patient is a current smoker, approximately 2 packs per day. Has rare alcohol use. OUTPATIENT MEDICAL REGIMEN: Includes aspirin 81 mg daily, atorvastatin, duloxetine, flecainide 50 mg 3 times daily, Flonase, furosemide 80 mg twice daily as needed, Ellipta, metformin, extended release metoprolol 100 mg 3 times daily, montelukast, omeprazole, potassium supplementation 20 mEq 5 times daily, spironolactone 50 mg twice daily, Symbicort, tramadol on a p.r.n. basis, and Xarelto 20 mg on a p.r.n. basis with palpitations. MEDICAL ALLERGIES: INCLUDE INDOMETHACIN, PENICILLIN, CARDIZEM TABLETS, CHANTIX, CODEINE DERIVATIVES, LATEX AND PAXIL. PHYSICAL EXAMINATION: GENERAL: The patient does not appear to be in any acute distress. She appeared only mildly uncomfortable. She was alert. She was oriented. She answers all questions appropriately. CURRENT VITAL SIGNS: Include blood pressure 118/86 and pulse 117. HEENT: Her sclerae are anicteric. Pupils are equal, reactive to light and accommodation. Extraocular movements were intact. Palpation of the submandibular region did not reveal any significant lymphadenopathy. NECK: The carotids are palpable bilaterally. I did not appreciate any bruits on auscultation. The thyroid is not enlarged. LUNGS: Auscultation of the lung apices revealed good air movement with occasional splinting. Some decreased breath sounds at the bases bilaterally. There is no expiratory wheezing appreciated. HEART: Revealed her to be in an irregularly irregular rhythm without murmur on exam. ABDOMEN: Soft and nontender. EXTREMITIES: Evaluation of the both wrists revealed, radial pulses are equal in intensity. There is no evidence of cyanosis or clubbing. Evaluation of the lower extremities did not reveal any significant peripheral edema. LABORATORY DATA: Laboratory studies obtained today include a white cell count of 16.7, hemoglobin of 11.7, and platelet count of 310. Sodium is 138, potassium is 5.6, BUN was 31, and creatinine was 1.3. Last echocardiogram on record was 2008 and this revealed preserved left ventricular systolic function with mild mitral and tricuspid regurgitation. Stress echocardiogram was also performed that year and did not reveal any evidence of inducible ischemia. A 12-lead EKG was obtained today. EKG demonstrated atrial fibrillation with rapid ventricular response. There were no ischemic ST segment changes. QTC was only mildly prolonged at 465. QRS duration was normal. ASSESSMENT AND PLAN: 1. Atrial fibrillation. The patient developed atrial fibrillation in the postoperative period. This is a common scenario. Overall, it has been well tolerated with only brief periods of what was described as mild hypotension. She is currently asymptomatic and her heart rate is in the 100s-110s range. She has had similar episodes in the perioperative period with her appendectomy. At this point, I do not feel she requires any urgent cardioversion based on the absence of ischemic changes or significant hemodynamic embarrassment. I think in her case, a resumption of her medical regimen with extra dose of metoprolol and flecainide as she uses as an outpatient would be reasonable first attempt at controlling her arrhythmia. In the event she has significant hypotension, cardioversion could be entertained, but is unlikely to be required. I think there is a reasonable chance that she will convert on her own within the next 24 hours in the absence more significant symptoms and resumption of her standard medical regimen seems adequate currently. 2. Hyperkalemia. The patient has a fairly elevated potassium today, possibly related to some hemolysis of the sample. I think repeating the potassium prior to additional dose of flecainide would be reasonable. 3. Anticoagulation. Ideally, the patient would be on anticoagulation or perhaps take an oral dose of her Xarelto, however, this early in the postoperative period may produce excessive bleeding risk. There is no acute need for anticoagulation and I feel it can safely be deferred at this time. MTDD
--- NOTE | 2017-01-15 13:16 | SURGERY PROGRESS NOTE ---
DATE: 01/15/2017 DATE: 01/15/2017. Ms. Marycarmen Schilling is 1 day out from a robotic left upper lobectomy, small thoracotomy at the conclusion of the case. Unfortunately, the patient has now gone into atrial fibrillation. She moved from the unit to the floor and had to be moved back. She sounds good. Her chest tube put out 220 mL of serobloody fluid. Her hemoglobin is stable at 11.7. Her sodium is up to 5.2, her creatinine is stable at 1.3. She actually has a history of problems with her creatinine having been as high as 1.5 back in 2012 and 1.4 as recently as last September. She is currently stable at 3.0. She has been making urine. She made 600 mL so for this shift. Her x-ray looks good. At this point, with her atrial fibrillation she is going to have to be kept in a monitored bed. Dr. Tristan Smith has graciously assumed care of her atrial fibrillation. At this point, I would not feel comfortable fully anticoagulating her. JEAN
[2017-01-15] MEDS ORDERED: FLECAINIDE ACETATE 100 MG TAB PO ONE (13:45)
[2017-01-15] MEDS: FUROSEMIDE INJ 40 MG in SYRINGE 0 ML IV SCH (20:35)
[2017-01-15] MEDS: ATORVASTATIN 10 MG TAB PO SCH (20:37)
[2017-01-15] MEDS: MONTELUKAST SOD 10 MG TAB PO SCH (20:40)
[2017-01-15] MEDS ORDERED: NURSING VERBAL MED ORDER ONE (23:00)
[2017-01-15] MEDS ORDERED: METOPROLOL TARTRATE 1 MG/ML VIAL IV PRN (23:00)
[2017-01-16] VITALS (8 sets, daily range): BP systolic 91–114; BP diastolic 58–68; PULSE 83–120; TEMP 36.5–36.9; O2SAT 88–99
[2017-01-16] MEDS: ACETAMINOPHEN 325 MG TAB PO SCH ×4 (03:12→21:42)
--- NOTE | 2017-01-16 05:45 | Clinical Documentation Query ---
CLINICAL DOCUMENTATION QUERY Query #1/2 Acute respiratory failure 2/2 difficult intubation/ prolonged procedure is being documented by P[employer] Machine Operator Team. This documentation does trigger a Patient Safety Indicatory (PSI) and is a complication to the procedure. If the respiratory failure is directly correlated to the surgical procedure no further documentation is needed. However, if the patient's underlying health conditions could have played a role in the respiratory failure then Acute post-operative pulmonary insufficiency may be a better choice of diagnosis. Acute post-operative pulmonary insufficiency in setting of patient underlying lung cancer and obesity carries the same Severity of Illness (SOI) but does not trigger a PSI or code to a complication directly associated to the procedure. In your clinical opinion is this patient being managed for: ( ) Acute post-operative pulmonary insufficiency ( ) Acute hypoxic respiratory failure secondary to difficult intubation/ prolonged procedure (a complication of procedure/PSI) (X ) Other explanation of clinical findings (Please Explain) ( ) Unable to determine (Please Define) ( ) Need to Discuss ( ) Not Agree The medical record reflects the following clinical findings, treatment, and risk factors. Clinical Indicators: acute hypoxic respiratory failure secondary to difficult intubation/ prolonged procedure Treatment: O2 via mask. Risk Factors: IV pain medication, lung CA, obesity (BMI 40.5) Query #2/2 In your clinical opinion is this patient being managed for: ( ) CKD stage 3 (X) Other explanation of clinical findings (Please Explain) ( ) Unable to determine (Please Define) ( ) Need to Discuss ( ) Not Agree The medical record reflects the following clinical findings, treatment, and risk factors. Clinical Indicators: BUN 31, Creatinine 1.30, GFR 43.6. These all appear congruent with patient's baseline. Treatment: daily PRP, IVF Risk Factors: Age Please clarify and document your clinical opinion in the progress notes and discharge summary. Terms such as "probable", "suspected", "likely", "questionable", "possible", or "still to be ruled out" are acceptable. IF IN AGREEMENT, YOU MUST DOCUMENT ABOVE DIAGNOSTIC STATEMENT IN DAILY PROGRESS NOTES AND DISCHARGE SUMMARY. This document is not part of the patient's record. Thank You, Dioni Francis RN [phone]
[2017-01-16] MEDS: INSULIN ASPART 100 UNITS/ML 3 ML PEN SC SCH ×4 (07:00→21:22)
[2017-01-16] MEDS: ALBUT/IPRATROP 3MG/0.5MG NEB 3 ML VIAL INH SCH ×4 (07:28→19:37)
--- NOTE | 2017-01-16 07:36 | DIAGNOSTIC IMAGING REPORT ---
CHEST ONE VIEW PORTABLE CLINICAL HISTORY: Postoperative evaluation. COMPARISON STUDY: Chest radiograph January 15, 2017. FINDINGS: A left chest tube remains in place. Lung lungs are diminished. This is unchanged. There are persistent bibasilar opacities and a small left pleural effusion. There is no pneumothorax. IMPRESSION: 1. Left chest tube in place. No pneumothorax identified. 2. No change in diminished lung lungs with bibasilar opacities. Electronically signed by: Sandor Ibrahim M.D. 01/16/2017 7:35 AM Dictated Date/Time: 01/16/2017 7:33 AM
[2017-01-16] MEDS: PANTOprazole SOD 40 MG TAB PO SCH ×2 (07:40→21:43)
[2017-01-16] MEDS: DULOXETINE HCL 20 MG CAP PO SCH (07:41)
[2017-01-16 07:42] LABS: HEMATOCRIT 33.4 % (37-47); MEAN CORPUSCULAR HEMOGLOBIN 29.9 pg (25-34); MEAN CORPUSCULAR HGB CONC 33.2 g/dl (32-36); MEAN PLATELET VOLUME 8.4 fL (7.4-10.4); PLATELET COUNT 282 K/uL (130-400); RED BLOOD COUNT 3.71 M/uL (4.2-5.4); WHITE BLOOD COUNT 13.29 K/uL (4.8-10.8)
[2017-01-16] MEDS: DOCUSATE SODIUM 100 MG CAP PO SCH ×2 (07:43→21:44)
[2017-01-16] MEDS: ASPIRIN 81 MG ECTAB PO SCH (07:44)
[2017-01-16] MEDS: METOPROLOL SUCC 50MG EXT REL TAB PO SCH ×3 (07:45→21:42)
[2017-01-16] MEDS: NICOTINE 14 MG/24 HR TDSY TD SCH (07:46)
[2017-01-16] MEDS: FLECAINIDE ACETATE 100 MG TAB PO SCH ×3 (07:46→21:42)
[2017-01-16] MEDS: ENOXAPARIN 40 MG/0.4 ML SYR SQ SCH (07:47)
[2017-01-16] MEDS: FUROSEMIDE INJ 40 MG in SYRINGE 0 ML IV SCH ×2 (09:00→21:43)
[2017-01-16] MEDS: FLUTICASONE PROPIONATE NA SPR 16 GM BTL SCH (09:37)
[2017-01-16] MEDS: BUDESONIDE/FORMOTEROL FUMARATE 160/4.5 60 PUFFS/INHALER INH SCH ×2 (09:38→21:43)
[2017-01-16] MEDS: POTASSIUM CHLORIDE 20 MEQ TABCR PO SCH ×3 (09:41→16:27)
--- NOTE | 2017-01-16 12:00 | SURGERY PROGRESS NOTE ---
DATE: 01/16/2017 SUBJECTIVE: Ms. Schilling was seen today. She is sitting up and eating breakfast. She is on 2 liters of O2 with a saturation of 99%. She was actually off O2, a bit today. One of the problems we have is that Ms. Schilling is in atrial fibrillation. She has a history of atrial fibrillation, so it is not that surprising. Her rate is about 105 on my count. She is aymptomatic from her a-fib. The patient's lungs sound very good. She has been ambulating. I do not see an air leak and she has drained very little from her chest tube. I reviewed the patient's labs. Her hemoglobin is stable. In addition, I have reviewed her renal function. A question has been raised about whether this patient has acute renal failure. She does not. Her creatinine was up as high as 1.4, a few months ago. It was 1.3, right after the surgery which is the same as it was before the surgery. I would not call that a complication or a problem arising with her kidneys. In addition, today, her creatinine is down to 1.0. She has been voiding well and making easily enough urine. Her weight is also stable. Also, a question has been raised about respiratory failure and a complication of the procedure. That is incorrect. The patient was smoking up until the day of the procedure. She has been smoking her entire life. She was not extubated at the time of surgery due to a decision by anesthesia. She was extubated quite quickly in the intensive care unit. She has done quite well from that regard. The pathology is still pending. ASSESSMENT AND PLAN: Postoperative day #2. I think this patient looks very good. Her pain control is excellent. We are going to pull her chest tube later today and perhaps get her home as soon as tomorrow. JEAN
--- NOTE | 2017-01-16 13:56 | PROGRESS NOTE ---
DATE: 01/16/2017 SUBJECTIVE: The patient was seen by me this morning in the telemetry unit room. She underwent a robotic wedge resection of a left lower lobe mass, robotic lobectomy with lymph node biopsies, and limited thoracotomy to remove the left lower lobe on 01/14/2017. Postoperatively, she developed atrial fibrillation. She persists with atrial fibrillation. The patient has a history of paroxysmal atrial fibrillation. History of reactive airway disease. History of obstructive sleep apnea. Chronic kidney disease, diabetes mellitus, GE reflux disease, dyslipidemia, and hypertension. The patient states that this morning, she has no dyspnea at rest. No wheezing. She had mild postural lightheadedness when she stood up. No orthopnea or PND overnight. She denies any chest pain. No palpitations. No abdominal pain or nausea. No complaints of leg pain. She does have a history of chronic mild lower extremity edema. CURRENT MEDICATIONS: Potassium 20 mEq p.o. t.i.d., metoprolol tartrate 5 mg IV q. 4 hours as needed for ventricular rate greater than 120, furosemide 40 mg IV b.i.d., aspirin 81 mg daily, Cymbalta 40 mg daily, Flonase 1 spray daily, enoxaparin 40 mg subQ daily, nicotine patch 1 patch daily, atorvastatin 10 mg at bedtime, Symbicort 2 puffs b.i.d., flecainide 50 mg t.i.d., metoprolol succinate ER 100 mg t.i.d., Singulair 10 mg at bedtime, tramadol 100 mg t.i.d. as needed for pain, pantoprazole 40 mg b.i.d., sliding scale insulin, Colace 100 mg b.i.d., DuoNeb p.r.n., Zofran p.r.n., oxycodone p.r.n., and morphine p.r.n. ALLERGIES AND ADVERSE DRUG REACTIONS: CODEINE, DILTIAZEM, INDOMETHACIN, LATEX, PAROXETINE, PENICILLINS, AND VARENICLINE. PHYSICAL EXAMINATION: GENERAL: The patient is sitting up in a chair by her bedside. No distress. VITAL SIGNS: This morning with oral temperature 36.7, pulse 112, blood pressure 91/58, and pulse oximetry on room air 99%. NECK: No jugular venous distention. LUNGS: Decreased breath sounds, left base. No wheezes. HEART: Irregularly irregular. Increased rate. No murmur, S3, or rub. ABDOMEN: Soft. Nontender. No palpable masses or organomegaly. EXTREMITIES: Trace pretibial edema bilaterally. NEUROLOGIC: Alert and oriented x3. Motor grossly intact. PSYCHIATRIC: Affect is normal. LABORATORY DATA: Today with WBC 13.29, hemoglobin 11.1, hematocrit 33.4, and platelet count 282,000. Creatinine 1.0. Estimated GFR 59.9. Yesterday, her potassium was 5.2. Monitor over the past 24 hours reviewed by me. Atrial fibrillation with increased ventricular response. ASSESSMENT: 1. Longstanding history of paroxysmal atrial fibrillation. In the past, she has spontaneously converted after receiving additional flecainide. Her atrial fibrillation today has a moderate ventricular response. Increased ventricular response in the current setting would not be unusual. She has also undergone a major surgical procedure. She is asymptomatic from the atrial fibrillation at this time. 2. No evidence of pulmonary vascular congestion on exam. 3. Status post left lower lobe lobectomy for nonsmall cell lung cancer. 4. History of reactive airway disease. Long-term cigarette smoking. Currently, no evidence of bronchospasm on exam. 5. Chronic mild peripheral edema. 6. Creatinine today is normal. 7. Hemoglobin today is minimally decreased from yesterday. 8. No symptoms suggestive of a thromboembolic event. RECOMMENDATIONS: 1. Continue flecainide and metoprolol at current doses. 2. Start the patient on Xarelto 20 mg daily when it is okay from a surgical standpoint. This would be in regards to any increased risk of bleeding. 3. If the patient persists with atrial fibrillation, could consider electrical cardioversion. 4. Would recheck renal function and potassium levels tomorrow. Her potassium level yesterday was moderately elevated. She had been on spironolactone prior to admission. This is now on hold. She is receiving potassium supplementation. 5. Increase activity as tolerated.
--- NOTE | 2017-01-16 13:57 | Progress Note ---
Progress Note Date of Service Jan 16, 2017. Progress Note Pt. revisited. No air leak noted on pleur-evac. CT removed without difficulty. No pneumothorax on post-pull CXR. Discussed with cardiology that anticoagulation is ok at this time. Will start xarelto 20 mg daily, with 1st dose now. It was noted by cardiology that cardioversion may be needed tomorrow prior to d/c.
--- NOTE | 2017-01-16 13:58 | DIAGNOSTIC IMAGING REPORT ---
SINGLE VIEW CHEST CLINICAL HISTORY: Chest tube removal. FINDINGS: An AP, portable, upright chest radiograph is compared to study performed earlier the same day 01/16/2017 and correlated with chest CT dated 11/27/2016. The examination is degraded by portable technique, large body habitus, and patient rotation. A left-sided chest tube has been removed. No pneumothorax is seen. The heart is enlarged. The pulmonary vasculature is noncongested. Volume loss in the left lung is consistent with left-sided pulmonary resection. Emphysema and interstitial thickening are noted. There is bibasilar atelectasis with pleural fluid suspected at the left lung base. The skeletal structures are osteopenic. The bony thorax is grossly intact. Cholecystectomy clips are noted. IMPRESSION: 1. A left-sided chest tube has been removed. No pneumothorax is seen. 2. Cardiomegaly and emphysema with postoperative change from left-sided pulmonary resection. 3. Pleural fluid is again seen at the left lung base. Bibasilar atelectasis is observed. Electronically signed by: Wilner Melo M.D. 01/16/2017 1:57 PM Dictated Date/Time: 01/16/2017 1:54 PM
[2017-01-16] MEDS ORDERED: RIVAROXABAN 20 MG TAB PO ONE (14:15)
--- NOTE | 2017-01-16 20:38 | Progress Note ---
Post ICU Progress Note Date & Time Jan 16, 2017 at 20:12 Vital Signs Vital Signs Past 12 Hours Date Time Temp Pulse Resp B/P Pulse Ox O2 Delivery O2 Flow Rate FiO2 01/16/17 19:37 118 20 94 Nasal Cannula 2.0 01/16/17 16:00 Nasal Cannula 2.0 01/16/17 15:39 36.9 120 18 114/68 97 Nasal Cannula 2.0 01/16/17 15:12 83 20 96 Nasal Cannula 2.0 01/16/17 12:00 Nasal Cannula 2.0 01/16/17 11:40 36.7 96 19 105/66 98 01/16/17 11:14 93 20 98 Nasal Cannula 2.0 Notes Mental Status: alert / awake, participated in evaluation Nausea / Vomiting: adequately controlled Pain: adequately controlled Airway Patency, RR, SpO2: stable & adequate BP & HR: stable & adequate Marycarmen Schilling is a pleasant 61yo female who presented to the ICU s/p left lower lobectomy for non-small cell CA on 01/14/17. She came to the ICU still intubated however, was extubated in her room almost immediately without issue. Pt was initially verbally combative while still under the effects of her anesthesia. However, by mid-morning Marycarmen was at her baseline and was extremely polite. She had a left bert-lateral chest tube in place with no air leaks or crepitus noted. She has also come to the unit with a Left Radial Arterial Line in place. She continued to have an uneventful ICU stay and went to the floor the following day. She has a history of Paroxysmal Atrial Fibrillation known to spontaneously convert; which did reoccur after this thoracic surgery. She is followed by Dr. Wright; who is again following. From Dr. Sands's standpoint, the patient states she was told she "may go home tomorrow" after she "receives cardiology's blessing." Per Dr. Wright's documentation, the patient's started Xarelto today and they are considering a possibility of electrical cardioversion if the atrial fibrillation continues. The chest tube was removed without issue today. Pt stated it was actually less painful than she thought it would be. Arterial line was also discontinued without issue. Pt had no complaints at this time. Stated she was doing well with her diet and felt great. She is eager to go home. There were no new findings on physical exam. Consider outpatient follow up in 1 to 2 weeks with: Dr. Galo (Primary Care) Repeat imaging needed: N/A Follow up cultures: N/A Reviewed progress notes, labs, and inpatient medication list Continue current management Additional recommendations: Follow discharge instructions per Dr. Wright and Dr. Sands for outpatient follow-up. Critical Care will sign off at this time. Thank you for including us in the care of this patient. please feel free to reconsult as needed. Consults & Procedures Consultants: Dr. Wright: Cardiology
[2017-01-16] MEDS: MONTELUKAST SOD 10 MG TAB PO SCH (21:42)
[2017-01-16] MEDS: ATORVASTATIN 10 MG TAB PO SCH (21:43)
[2017-01-17] VITALS (7 sets, daily range): BP systolic 97–102; BP diastolic 63–67; PULSE 93–124; TEMP 36.7–37.1; O2SAT 93–96
[2017-01-17] MEDS: ACETAMINOPHEN 325 MG TAB PO SCH ×2 (03:30→09:41)
[2017-01-17] MEDS: INSULIN ASPART 100 UNITS/ML 3 ML PEN SC SCH ×2 (07:45→11:45)
[2017-01-17] MEDS: ALBUT/IPRATROP 3MG/0.5MG NEB 3 ML VIAL INH SCH ×2 (07:53→11:26)
[2017-01-17] MEDS ORDERED: RIVAROXABAN 20 MG TAB PO SCH (09:00)
--- NOTE | 2017-01-17 09:18 | CARDIOLOGY PROGRESS NOTE ---
DATE: 01/17/2017 DATE: 01/17/2017. SUBJECTIVE: This morning Mrs. Schilling claims to be feeling better. She states that her back pain is improved since removal of the chest tube. She has minimal discomfort at her operative site. She says she does have some persistent dyspnea which is fairly chronic in nature. With ambulation to the bathroom yesterday she removed her oxygen and was mildly dyspneic. She denies a sense of palpitations, racing heart beat or chest pain. PHYSICAL EXAMINATION: GENERAL: She is alert and oriented. Mood and affect appeared normal. She answered all questions appropriately. CURRENT VITAL SIGNS: Include a blood pressure of 97/63 with a pulse of 106. LUNGS: Auscultation of his lungs revealed somewhat diminished breath sounds in the left base but otherwise clear. There was overall poor excursion and some mild expiratory wheezing. CARDIAC EXAMINATION: Revealed her to be in an irregular irregular rhythm. LOWER EXTREMITIES: Did not reveal any significant peripheral edema. Review of her telemetry reveals persistent atrial fibrillation with relatively high heart rates overall. ASSESSMENT AND PLAN: Persistent atrial fibrillation. The patient had a few overt symptoms related to her arrhythmia. She does have baseline dyspnea and it is unclear whether her symptoms are any worse with the atrial fibrillation. Hope was that with removal of her chest tubes and time she would revert back to sinus rhythm but this has not occurred. The patient has been maintained on her outpatient regimen of metoprolol and flecainide over the past 2 days without return to sinus rhythm. As such it seems reasonable to consider cardioversion in hope that she will maintain sinus rhythm prior to discharge. The patient however adamantly refuses cardioversion and at this time is requesting to go home for a period of convalescence prior to any additional treatment. I suspect the patient will convert at some point spontaneously, the main question currently is whether she is stable enough for discharged based primarily on her symptoms and heart rate. Right now her heart rate is relatively high which should not pose an acute problem but could cause significant difficulty over time if not monitored closely or improved upon. Additional options for rate control would include digoxin. The patient appears to have had a reaction to Diltiazem in the past which precludes its use currently. She may also have some improved symptoms and higher chance of cardioversion with adequate diuresis. At this point I think reinstitution of her outpatient diuretic and potassium regimen seems reasonable. I will wait to order this until we have chemistry back from this morning.
[2017-01-17] MEDS: ENOXAPARIN 40 MG/0.4 ML SYR SQ SCH (09:37)
[2017-01-17] MEDS: METOPROLOL SUCC 50MG EXT REL TAB PO SCH (09:38)
[2017-01-17] MEDS: PANTOprazole SOD 40 MG TAB PO SCH (09:39)
[2017-01-17] MEDS: FUROSEMIDE INJ 40 MG in SYRINGE 0 ML IV SCH (09:39)
[2017-01-17] MEDS: FLUTICASONE PROPIONATE NA SPR 16 GM BTL SCH (09:40)
[2017-01-17] MEDS: BUDESONIDE/FORMOTEROL FUMARATE 160/4.5 60 PUFFS/INHALER INH SCH (09:40)
[2017-01-17] MEDS: DOCUSATE SODIUM 100 MG CAP PO SCH (09:40)
[2017-01-17] MEDS: DULOXETINE HCL 20 MG CAP PO SCH (09:40)
[2017-01-17] MEDS: FLECAINIDE ACETATE 100 MG TAB PO SCH (09:41)
[2017-01-17] MEDS: ASPIRIN 81 MG ECTAB PO SCH (09:42)
[2017-01-17] MEDS: NICOTINE 14 MG/24 HR TDSY TD SCH (09:42)
[2017-01-17] MEDS ORDERED: AZITTAB PO (09:54)
[2017-01-17] MEDS ORDERED: XRL20 PO (09:54)
--- NOTE | 2017-01-17 10:00 | Discharge Instructions ---
Discharge Instructions Date of Service Jan 17, 2017. 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 Discharge Goals Goal(s): Improve function (Walk! Use incentive spirometer! Don't smoke! ) Activity Recommendations Activity Limitations: as noted below Lifting Limitations: gradually increase as tolerated Exercise/Sports Limitations: gradually increase as tolerated May Resume Sexual Activity: when tolerated Shower/Bathe: may shower/bathe in 3 days Driving or Machine Use: See me on office to determine when you can resume driving. May shower on Thursday, January 19. Remove all dressings then. . Instructions / Follow-Up Instructions / Follow-Up Call office on Thursday for follow up appointment. Current Hospital Diet Patient's current hospital diet: Diabetes Type 2 Diet Discharge Diet Recommended Diet: Diabetes Type 2 Diet Procedures Procedures Performed: Left Robotic Assisted Thoracoscopic Left Lower Lobectomy with Mediastinal Lymphadenectomy, Limited thorocotomy with removal of left lower lobe Pending Studies Studies pending at discharge: yes List of pending studies: Pathology results. Medical Emergencies . Who to Call and When: Medical Emergencies: If at any time you feel your situation is an emergency, please call 911 immediately. . Non-Emergent Contact Non-Emergency issues call your: Primary Care Provider . "Provider Documentation" section prepared by Deuce Sands. VTE Core Measure Inpt VTE Proph given/why not?: Enoxaparin (Lovenox)SQ, SCD's
[2017-01-17 10:36] LABS: BUN/CREATININE RATIO 20.3 (10-20); CALCIUM 8.6 mg/dl (8.5-10.1); CREATININE 0.96 mg/dl (0.60-1.20); POTASSIUM 4.1 mmol/L (3.5-5.1)
[2017-01-17] MEDS: POTASSIUM CHLORIDE 20 MEQ TABCR PO SCH ×2 (10:57→12:34)
--- NOTE | 2017-01-17 15:38 | DISCHARGE SUMMARY ---
DISCHARGE DIAGNOSES: 1. Nonsmall cell lung carcinoma, left lower lobe. 2. Atrial fibrillation. 3. History of cigarette smoking. 4. Chronic obstructive pulmonary disease. 5. Diabetes mellitus. 6. Gastroesophageal reflux disease. 7. Dyslipidemia. 8. Hypertension. 9. Morbid obesity. 10. Sleep apnea. HOSPITAL COURSE: This is a very nice 61-year-old female who has had a long history of cigarette smoking who underwent a robotic left lower lobectomy and mediastinal lymphadenectomy. I did do a small thoracotomy at the end of the case to remove the left lower lobe and hence we were having trouble with a 1 lung ventilation. She tolerated it well. She was intubated when she went back to the unit, but was quickly extubated. She was good the next day, I sent her to a regular room. She has a history of paroxysmal atrial fibrillation and in fact feels herself going in at home and will give herself extra doses of her metoprolol and flecainide and Xarelto. We removed her chest tube on postop day 2. She still requires some oxygen. She was much better the following day and on postoperative day 3 I discharged her. She did have atrial fibrillation, had rate from the 90s to 120s. I discussed this with Dr. Ok Sim from cardiology and the patient was insistent that she not undergo a cardioversion which was recommended. She states that she does this "all the time at home." She is tolerating her Xarelto. Her numbers looked good. She did not qualify for oxygen as her saturations were over 90% at rest. She has oxygen at home to use when she is ambulating. I was quite happy with her. I do not have the final pathology back but wedge resection showed this to be a nonsmall cell lung carcinoma, possibly a squamous cell. We will get her final pathology back and I will see her in the office next week. I did give her a prescription for Xarelto. I also gave her a prescription for Z-Corey as she had some purulent sputum, although she had no fevers and her lungs were actually much clear. The sputum was a bit yellowish although she sounded much better to me on postop day 3 than she did on postop day 1.
[2017-03-29] MEDS ORDERED: DULO-24 PO (13:01)
[2017-03-29] MEDS ORDERED: SPIR50TA3 PO (13:01)
[2017-03-29] MEDS ORDERED: MONT1TAB3 PO (13:01)
[2017-03-29] MEDS ORDERED: METF-384 PO (13:01)
[2017-03-29] MEDS ORDERED: ULT/50 PO (13:01)
[2017-03-29] MEDS ORDERED: SYMIN160 INH (13:01)
[2017-03-29] MEDS ORDERED: ATOR10TA88 PO (13:01)
[2017-03-29] MEDS ORDERED: FLEC50TA PO (13:01)
[2017-03-29] MEDS ORDERED: METO100T7 PO (13:01)
[2017-03-29] MEDS ORDERED: PRLSR20 PO (13:33)
[2017-03-29] MEDS ORDERED: FURO80TA63 PO (13:33)
[2017-03-29] MEDS ORDERED: ASPI81TA28 PO (14:24)
[2017-03-29] MEDS ORDERED: FLUT0.15 (14:24)
[2017-03-29] MEDS ORDERED: UMEC1INH INH (14:24)
== END 2017-01-17 12:53 | disposition home or self-care (01) | DRG 163 ==
LOC: ENRESERVTM → ENRESERVDT → C.ACU 09:32 → C.MSICU 19:08 → C.MSN 01-15 10:14 → C.2T 01-15 12:42
PROVIDERS: ADMIT Surgery; ATTEND Surgery
PROC: 0BTJ0ZZ Resection of Left Lower Lung Lobe, Open Approach (ICD-10-PCS; principal; 2017-01-14 11:00)
PROC: 07B74ZX Excision of Thorax Lymphatic, Percutaneous Endoscopic Approach, Diagnostic (ICD-10-PCS; principal; 2017-01-14 11:00)
PROC: 0BCJ4ZZ Extirpation of Matter from Left Lower Lung Lobe, Percutaneous Endoscopic Approach (ICD-10-PCS; principal; 2017-01-14 11:00)
DX: C34.32 Malignant neoplasm of lower lobe, left bronchus or lung (principal); J96.21 Acute and chronic respiratory failure with hypoxia; F17.210 Nicotine dependence, cigarettes, uncomplicated; M10.9 Gout, unspecified; J45.909 Unspecified asthma, uncomplicated; F32.9 Major depressive disorder, single episode, unspecified; E11.9 Type 2 diabetes mellitus without complications; G47.33 Obstructive sleep apnea (adult) (pediatric); K21.9 Gastro-esophageal reflux disease without esophagitis; I12.9 Hypertensive chronic kidney disease with stage 1 through stage 4 chronic kidney disease, or unspecified chronic kidney disease; E78.5 Hyperlipidemia, unspecified; N18.9 Chronic kidney disease, unspecified; E78.00 Pure hypercholesterolemia, unspecified; E87.5 Hyperkalemia; E66.01 Morbid (severe) obesity due to excess calories; M19.90 Unspecified osteoarthritis, unspecified site; I48.0 Paroxysmal atrial fibrillation; E55.9 Vitamin D deficiency, unspecified; Z83.3 Family history of diabetes mellitus; Z82.49 Family history of ischemic heart disease and other diseases of the circulatory system; Z79.82 Long term (current) use of aspirin; Z79.899 Other long term (current) drug therapy

== ENCOUNTER → 2017-03-13 | Outpatient (CLI) | payer OTHER ==
[~2017-03-13] MED LIST changes: +ALBU18002 PO; +ASPI81TA28 PO; +ATOR10TA82 PO; +DULO-24 PO; +FLEC50TA PO; +FLUT0.15; +FURO80TA63 PO; +METF-384 PO; +METO100T7 PO; +MONT1TAB3 PO; +MRN5 PO; +POTA10CA28 PO; +POTA20TA13 PO; +PRLSR20 PO; +PROAIR INH; +PROC1TAB5 PO; -SODIUM CHLORIDE 0.9% 1000ML 1,000 ML IV SCH; +SPIR50TA3 PO; +SYMIN160 INH; +ULT/50 PO; +UMEC1INH INH
[2017-03-13 18:46] LABS: ALT/SGPT 29 U/L (12-78); AST/SGOT 19 U/L (15-37); BLOOD UREA NITROGEN 17 mg/dl (7-18); BUN/CREATININE RATIO 14.4 (10-20); CALCIUM 9.3 mg/dl (8.5-10.1); CARBON DIOXIDE 32 mmol/L (21-32); CHLORIDE 96 mmol/L (98-107); GLUCOSE 84 mg/dl (70-99); POTASSIUM 4.4 mmol/L (3.5-5.1); SODIUM 136 mmol/L (136-145)
[2017-03-13 18:53] LABS: ALB/GLOB RATIO 0.6 (0.9-2); ALKALINE PHOSPHATASE 109 U/L (45-117)
[2017-03-14 07:33] LABS: ESTIMATED AVERAGE GLUCOSE 137 mg/dl; HA1C FLAG Normal (Normal)
== END | disposition home or self-care (01) ==
LOC: C.LABBFT 17:53
PROVIDERS: ATTEND Physician Assistant Medical
DX: I10 Essential (primary) hypertension (principal); E11.9 Type 2 diabetes mellitus without complications

== ENCOUNTER 2017-03-29 20:25 | Inpatient (IN) | payer OTHER ==
[~2017-03-29] VITALS: Ht 167.6 cm; Wt 98.4 kg
[~2017-03-29 20:25] MED LIST changes: -ALBU18002 PO; -MRN5 PO; -POTA10CA28 PO; -POTA20TA13 PO; -PROAIR INH; -PROC1TAB5 PO
[2017-03-29] MEDS ORDERED: PROAIR INH (20:45)
[2017-03-29] MEDS ORDERED: POTA20TA13 PO (20:46)
[2017-03-29] MEDS ORDERED: PROCHLORPERAZINE 5 MG/ML 2 ML VIAL IV STA (21:00)
[2017-03-29] MEDS ORDERED: SODIUM CHLORIDE 0.9% 1000ML 1,000 ML IV STA (21:00)
[2017-03-29] MEDS ORDERED: DiphenhydrAMINE HCL 50 MG/ML VIAL IV STA (21:00)
[2017-03-29] MEDS ORDERED: POTA10CA28 PO (21:22)
[2017-03-29] MEDS ORDERED: MRN5 PO (21:26)
[2017-03-29] MEDS ORDERED: PROC1TAB5 PO (21:26)
[2017-03-29 21:55] LABS: BUN/CREATININE RATIO 26.9 (10-20); CREATININE 1.9 mg/dl (0.60-1.20); POTASSIUM 3.9 mmol/L (3.5-5.1)
[2017-03-29 22:07] LABS: CALCIUM 8.8 mg/dl (8.5-10.1)
[2017-03-29 22:49] LABS: BASO % 0.2 %; BASO ABS # 0.02 K/uL (0-0.2); COMPLETE YES; EOS % 1.2 %; HEMATOCRIT 38.3 % (37-47); IG% 0.4 %; LYMPH % 23.5 %; LYMPH ABS # 1.98 K/uL (1.2-3.4); MEAN CELL VOLUME 87.4 fL (80-100); MEAN CORPUSCULAR HEMOGLOBIN 30.1 pg (25-34); MEAN CORPUSCULAR HGB CONC 34.5 g/dl (32-36); MEAN PLATELET VOLUME 9.1 fL (7.4-10.4); MONO % 0.6 %; NEUT % 74.1 %; PLATELET COUNT 341 K/uL (130-400); RED BLOOD COUNT 4.38 M/uL (4.2-5.4); WHITE BLOOD COUNT 8.43 K/uL (4.8-10.8)
--- NOTE | 2017-03-29 23:04 | DIAGNOSTIC IMAGING REPORT ---
CHEST AND ABDOMEN 2 VIEWS HISTORY: eval for obstruction. Loss of appetite. COMPARISON: Chest 01/16/2017. PET CT 12/17/2016. FINDINGS: Small left pleural effusion, unchanged. Surgical clips within the left hilum. No pneumothorax. The right lung is clear. No dilated loops of bowel to suggest an obstruction. Surgical clips seen within the right upper quadrant. Multiple pelvic phleboliths. Suture material within the right side of the abdomen. Moderate well-formed stool seen within the colon. No pneumoperitoneum. No pneumatosis. Suture material within the left hilum. IMPRESSION: 1. Small left pleural effusion, unchanged. 2. Moderate well-formed stool seen within the colon. 3. No evidence for bowel obstruction. Electronically signed by: John Land M.D. 03/29/2017 11:02 PM Dictated Date/Time: 03/29/2017 11:00 PM
[2017-03-29 23:46] LABS: MANUAL MICROSCOPIC REQUIRED? NO; REVIEW REQ? NO; URINE APPEARANCE CLEAR (CLEAR); URINE BILIRUBIN NEG (NEG); URINE COLOR YELLOW; URINE NITRITE NEG (NEG); URINE PH 5.5 (4.5-7.5); URINE SPECIFIC GRAVITY 1.008 (1.000-1.030); UROBILINOGEN NEG (NEG)
[2017-03-30] MEDS ORDERED: ACETAMINOPHEN 325 MG TAB PO PRN (00:15)
[2017-03-30] MEDS ORDERED: ALBUTEROL HFA INHALER 8.5 GM INH PRN (00:30)
[2017-03-30] MEDS ORDERED: DRONABINOL 2.5 MG CAP PO PRN (00:30)
[2017-03-30] MEDS ORDERED: PROCHLORPERAZINE INJ 5 MG in SYRINGE 4 ML IV PRN (00:30)
--- NOTE | 2017-03-30 00:39 | EMERGENCY ROOM VISIT NOTE ---
History Report prepared by Rahel: Ludivina Silvestre Under the Supervision of: Dr. Pj Keith M.D. First contact with patient: 20:50 Chief Complaint: DEHYDRATION Stated Complaint: FELL 3XS,CHEMO THIS WEEK,NOT EATING/DRINKING Nursing Triage Summary: Pt is currently taking chemo for lung cancer. Pt states that she has been weak today and has fallen 3 times. Pt denies any injuries. History of Present Illness The patient is a 62 year old female who presents to the Emergency Room with complaints of constant dehydration symptoms beginning 2 days prior to arrival. The patient is currently being treated for lung cancer. She ended a round of chemotherapy on Thursday. Since then she has been experiencing weakness and nausea. She notes that these symptoms are standard after she finishes a round of chemotherapy. The patient denies vomiting. She takes Compazine for the nausea and notes that she is unable to take Zofran. The patient notes that today she was able to keep peaches down but is having difficulty with fluids. She notes that she is making urine. She denies burning with urination. The patient had 3 falls today but denies LOC or head injury. She states that she fell on her buttocks and her hip but they don't really bother her. She notes the fall is from the weakness after the chemotherapy and that this happened after her last round of chemotherapy. She denies fever, black or bloody stools. The patient is currently not on Xarelto for atrial fibrillation anymore. She notes that she only takes Xarelto when she has an episode of a fib. The patient does not have her gall bladder. She denies any chest discomfort. She does complain of some discomfort in the upper abdomen which she states she has had for several months. It is unchanged. She has been undergoing chemotherapy for the past month. Source of History: patient Onset: 2 days CATTLE [employer]OCK[employer] Position: other (global) Quality: other (dehydration symptoms) Timing: constant Modifying Factors (Worsening): other (standing) Associated Symptoms: + abdominal pain, + nausea, No fevers, No urinary symptoms, No vomiting Review of Systems See HPI for pertinent positives & negatives. A total of 10 systems reviewed and were otherwise negative. Past Medical & Surgical Medical Problems: (1) Chemotherapy induced nausea and vomiting (2) Diabetes (3) Emphysema lung (4) GERD (gastroesophageal reflux disease) (5) HTN (hypertension) (6) Hypertension (7) Hyponatremia (8) Hypotension (9) Lung mass (10) Paroxysmal atrial fibrillation (11) Pulmonary nodule, left (12) Tobacco abuse Family History Diabetes mellitus SISTER FHx: arthritis SISTER FHx: coronary artery disease MOTHER SISTER Hypertension SISTER Social History Smoking Status: Former Smoker Drug Use: none Marital Status: Occupation Status: unemployed Current/Historical Medications Scheduled Aspirin (Aspirin Ec), 81 MG PO AFTERNOON Atorvastatin (Lipitor), 10 MG PO HS Budesonide/Formoterol Fumarate (Symbicort 160/4.5 Inhaler), 2 PUFFS INH BID Duloxetine Hcl (Cymbalta), 40 MG PO QAM Flecainide Acetate (Tambocor), 50 MG PO TID Fluticasone Propionate (Nasal) (Flonase Allergy Relief), 1 SPRAY NA DAILY Furosemide (Lasix), 160 MG PO BID Metformin Hcl (Glucophage), 1,000 MG PO BID Metoprolol Succinate (Toprol Xl), 100 MG PO TID Montelukast Sodium (Singulair), 10 MG PO HS Omeprazole (Prilosec), 20 MG PO BID Potassium Chloride (Micro-K Ext Rel), 10 MEQ PO 5XD Spironolactone (Aldactone), 50 MG PO BID Tramadol Hcl (Ultram), 100 MG PO TID Umeclidinium [place] (Incruse Ellipta), 1 PUFF INH QAM Scheduled PRN Dronabinol (Marinol), 5 MG PO DAILY PRN for Nausea Prochlorperazine Maleate (Compazine), 10 MG PO Q6H PRN for Nausea or Vomiting [Proair], 2 PUFF INH QID PRN for Shortness of Breath Allergies Coded Allergies: Diltiazem (Verified Allergy, Severe, SHORTNESS OF BREATH AND SWELLING OF HANDS AND FACE, 02/18/17) Adhesives (Verified Allergy, Mild, BLISTERS, 02/18/17) Latex1 -Allergic Contact Dermititis (Verified Allergy, Mild, RASH, 02/18/17 ) Indomethacin (Unverified Allergy, Unknown, per pulm note , 02/18/17) Penicillins (Verified Allergy, Unknown, WELTS IN MOUTH AND SPREAD TO BODY , 02/18/17) Codeine (Verified Adverse Reaction, Mild, N&V&GI PAIN, 02/18/17) Paroxetine (Verified Adverse Reaction, Unknown, GI SYMPTOMS, 02/18/17) Varenicline (Verified Adverse Reaction, Unknown, GI SYMPTOMS, 02/18/17) Physical Exam Vital Signs Date Time Temp Pulse Resp B/P Pulse Ox O2 Delivery O2 Flow Rate FiO2 03/29/17 23:19 71 20 113/71 99 Room Air 77 83/57 81 72/51 03/29/17 22:02 73 20 103/65 97 Room Air 03/29/17 21:34 74 03/29/17 20:27 36.6 84 20 91/64 94 Room Air Physical Exam Constitutional: Vital signs reviewed. Eyes: Pupils are equal round reactive to light. Conjunctiva are noninjected. ENT: Pharynx is clear without erythema or exudate. Mucous membranes are dry. Neck supple without meningeal signs. Respiratory: Clear to auscultation bilaterally. Breath sounds are equal bilaterally. Cardiovascular: Regular rate and rhythm. No rubs or gallops. GI: Soft, nondistended and nontender. Bowel sounds are present. Musculoskeletal: No peripheral edema. No lower extremity tenderness. Integumentary: No cyanosis. Neurological: The patient is awake and alert. No focal deficits. Psychiatric: Normal affect. Medical Decision & Procedures ER Provider Diagnostic Interpretation: X-ray results as stated below per interpretation by me and the radiologist: CHEST AND ABDOMEN 2 VIEWS HISTORY: eval for obstruction. Loss of appetite. COMPARISON: Chest 01/16/2017. PET CT 12/17/2016. FINDINGS: Small left pleural effusion, unchanged. Surgical clips within the left hilum. No pneumothorax. The right lung is clear. No dilated loops of bowel to suggest an obstruction. Surgical clips seen within the right upper quadrant. Multiple pelvic phleboliths. Suture material within the right side of the abdomen. Moderate well-formed stool seen within the colon. No pneumoperitoneum. No pneumatosis. Suture material within the left hilum. IMPRESSION: 1. Small left pleural effusion, unchanged. 2. Moderate well-formed stool seen within the colon. 3. No evidence for bowel obstruction. Electronically signed by: John Land M.D. 03/29/2017 11:02 PM Dictated Date/Time: 03/29/2017 11:00 PM Laboratory Results 03/29/17 21:20 Red Blood Count 4.38, Mean Corpuscular Volume 87.4, Mean Corpuscular Hemoglobin 30.1, Mean Corpuscular Hemoglobin Concent 34.5, Mean Platelet Volume 9.1, Neutrophils (%) (Auto) 74.1, Lymphocytes (%) (Auto) 23.5, Monocytes (%) (Auto) 0.6, Eosinophils (%) (Auto) 1.2, Basophils (%) (Auto) 0.2, Neutrophils # (Auto) 6.25, Lymphocytes # (Auto) 1.98, Monocytes # (Auto) 0.05, Eosinophils # (Auto) 0.10, Basophils # (Auto) 0.02 03/29/17 21:20 Test 03/29/17 21:20 03/29/17 21:27 03/29/17 23:30 White Blood Count 8.43 K/uL (4.8-10.8) Red Blood Count 4.38 M/uL (4.2-5.4) Hemoglobin 13.2 g/dL (12.0-16.0) Hematocrit 38.3 % (37-47) Mean Corpuscular Volume 87.4 fL (80-100) Mean Corpuscular Hemoglobin 30.1 pg (25-34) Mean Corpuscular Hemoglobin Concent 34.5 g/dl (32-36) Platelet Count 341 K/uL (130-400) Mean Platelet Volume 9.1 fL (7.4-10.4) Neutrophils (%) (Auto) 74.1 % Lymphocytes (%) (Auto) 23.5 % Monocytes (%) (Auto) 0.6 % Eosinophils (%) (Auto) 1.2 % Basophils (%) (Auto) 0.2 % Neutrophils # (Auto) 6.25 K/uL (1.4-6.5) Lymphocytes # (Auto) 1.98 K/uL (1.2-3.4) Monocytes # (Auto) 0.05 K/uL (0.11-0.59) Eosinophils # (Auto) 0.10 K/uL (0-0.5) Basophils # (Auto) 0.02 K/uL (0-0.2) RDW Standard Deviation 48.6 fL (36.4-46.3) RDW Coefficient of Variation 15.4 % (11.5-14.5) Immature Granulocyte % (Auto) 0.4 % Immature Granulocyte # (Auto) 0.03 K/uL (0.00-0.02) Anion Gap 14.0 mmol/L (3-11) Est Creatinine Clear Calc Drug Dose 37.0 ml/min Estimated GFR () 31.7 Estimated GFR (Non- 27.4 BUN/Creatinine Ratio 26.9 (10-20) Calcium Level 8.8 mg/dl (8.5-10.1) Total Bilirubin 0.5 mg/dl (0.2-1) Direct Bilirubin 0.1 mg/dl (0-0.2) Aspartate Amino Transf (AST/SGOT) 24 U/L (15-37) Alanine Aminotransferase (ALT/SGPT) 34 U/L (12-78) Alkaline Phosphatase 96 U/L (45-117) Total Protein 7.9 gm/dl (6.4-8.2) Albumin 3.4 gm/dl (3.4-5.0) Lipase 187 U/L (73-393) Bedside Troponin I 0.000 ng/ml (0-0.045) Urine Color YELLOW Urine Appearance CLEAR (CLEAR) Urine pH 5.5 (4.5-7.5) Urine Specific [place] 1.008 (1.000-1.030) Urine Protein NEG (NEG) Urine Glucose (UA) NEG (NEG) Urine Ketones NEG (NEG) Urine Occult Blood NEG (NEG) Urine Nitrite NEG (NEG) Urine Bilirubin NEG (NEG) Urine Urobilinogen NEG (NEG) Urine Leukocyte Esterase NEG (NEG) Laboratory results as reviewed by me. Medications Administered Medications (Trade) Dose Ordered Sig/Armani Route Start Time Stop Time Status Last Admin Dose Admin Sodium Chloride (Nss 1000ml) 1,000 ml @ 999 mls/hr Q1H1M STAT IV 03/29/17 21:00 03/29/17 22:00 DC 03/29/17 21:36 999 MLS/HR Prochlorperazine Edisylate (Compazine Inj) 10 mg NOW STAT IV 03/29/17 21:00 03/29/17 21:04 DC 03/29/17 21:36 10 MG Diphenhydramine HCl (Benadryl Inj) 25 mg NOW STAT IV 03/29/17 21:00 03/29/17 21:04 DC 03/29/17 21:36 25 MG ECG Indication: weakness Rate (beats per minute): 70 Rhythm: normal sinus Findings: T-wave inversion (Septal), no ectopy ED Course 2052: The patient was evaluated in room B11. A complete history and physical exam was performed. 2100: Benadryl Inj 25 mg IV, Compazine Inj 10 mg IV, Sodium Chloride 1,000 ml @ 999 mls/hr IV. 2341: I discussed the test results with the patient. Her pressure dropped to 70 when standing. 2343: I spoke with Dr. Dumont of [facility]. We discussed the patient and her results. The patient will be further evaluated by Dr. Dumont - [facility]. Medical Decision This is a 62-year-old female who presents with weakness. Differential diagnosis includes dehydration, orthostatic hypotension, anemia, neutropenia, infection. I did perform a limited focused review of portions of the patient's old chart on the electronic medical record. The patient was hospitalized in December and underwent a left lower lobectomy for lung cancer. On Xarelto for Atrial Fibrillation. Medication Reconciliation: I attest that I have personally reviewed the patient' s current medication list. Blood Pressure Screening: Patient was found to have normal blood pressure on screening and does not require follow-up. I did evaluate the patient as noted above. Patient is presenting with generalized weakness and she fell 3 times today. She states that she did not injure herself when she fell and denies any head injury. She states that she hasn't been eating or drinking very much since she received chemotherapy on Thursday. She does appear dehydrated. IV access was established. The patient was placed on a continuous medication manager. She is hypotensive on initial evaluation. I did treat her with normal saline IV. She was also given Compazine and Benadryl IV. She states that she cannot take Zofran. I did order and personally review the patient's 12-lead EKG and chest/abdominal x- rays as described above. I did order and review the patient's blood work as noted in the electronic medical record. She is hyponatremic and her creatinine is elevated. She is not neutropenic. The patient's blood pressure did improve. I did order orthostatic vital signs and she did demonstrate significant orthostatic hypotension. I did discuss the test results with the patient. I did recommend hospitalization for further IV fluids and evaluation. I did discuss the case with the hospitalist and case management assistant. Consults Time Called: [phone] Consulting Physician: Dr. Tim Jay [facility] Returned Call: [phone] Dumont of [facility]. We discussed the patient and her results. The patient will be further evaluated by Dr. Tim LOZA. Impression Primary Impression: Orthostatic hypotension Additional Impressions: Dehydration Hyponatremia Elevated serum creatinine Scribe Attestation The scribe's documentation has been prepared under my direct and personally reviewed by me in its entirety. I confirm that the note above accurately reflects all work, treatment, procedures, and medical decision making performed by me. Departure Information Dispostion Being Evaluated By Hospitalist Referrals Ok Galo M.D. (PCP) Problem Qualifiers
--- NOTE | 2017-03-30 01:12 | History and Physical ---
History & Physical Date & Time of Service: March 30, 2017 at 00:35 Chief Complaint: Fell 3XS,Chemo This Week,Not Eating/Drinking Primary Care Physician: Ok Galo M.D. History of Present Illness Source: family, clinic records, hospital records This is a 62 yo f that is presenting to us with N&V, decreased appetite and dehydration x 3 days. She finished the last dose of her chemo approx 2 days prior for her squamous cell lung cancer (Patho IB [id number]) and since then she has had increasing nausea and inability to eat. This occurred during her last cycle of chemo and she had a very difficult time with the nausea. She was treated with Aloxi because there was concern to place the patient on Zofran while on Flecainide in the event that this would prolong her QtC. She was evaluated in the ED and she was found to be hypovolemic as well as in GIOVANA. She currently is nauseated and has so epigastric " fullness" described as an ache and 4/10. No change in BM, dysuria or hematuria. The abdominal pain started with the nausea. The patient was originally dignosed with NSCLC vix CT scan approx 2 years prior. Since then the patient has had a left lower lobectomy and she has been started on Chemo which includes Cisplatin and Etoposide. As noted above this is her second cycle of chemo. She also has a history of PAF and will take her Xarelto " Prn" when she is having symptoms. She is currently not on her Xarelto. Past Medical/Surgical History Medical Problems: (1) Hypertension Status: Chronic DMII COPD GERD PAF NSCLC TKA bilat Cholecystectomy Appendectomy Family History Diabetes mellitus SISTER FHx: arthritis SISTER FHx: coronary artery disease MOTHER SISTER Hypertension SISTER Social History Smoking Status: Former Smoker Smokeless Tobacco Use: No Alcohol Use: none Drug Use: none Marital Status: Housing status: lives alone Occupational Status: unemployed Immunizations History of Influenza Vaccine: No History of Tetanus Vaccine?: Yes History of Pneumococcal: Yes History of Hepatitis B Vaccine: Yes Multi-Drug Resistant Organisms History of MDRO: No Allergies Coded Allergies: Diltiazem (Verified Allergy, Severe, SHORTNESS OF BREATH AND SWELLING OF HANDS AND FACE, 02/18/17) Adhesives (Verified Allergy, Mild, BLISTERS, 02/18/17) Latex1 -Allergic Contact Dermititis (Verified Allergy, Mild, RASH, 02/18/17 ) Indomethacin (Unverified Allergy, Unknown, per pulm note , 02/18/17) Penicillins (Verified Allergy, Unknown, WELTS IN MOUTH AND SPREAD TO BODY , 02/18/17) Codeine (Verified Adverse Reaction, Mild, N&V&GI PAIN, 02/18/17) Paroxetine (Verified Adverse Reaction, Unknown, GI SYMPTOMS, 02/18/17) Varenicline (Verified Adverse Reaction, Unknown, GI SYMPTOMS, 02/18/17) Home Medications Scheduled Aspirin (Aspirin Ec), 81 MG PO AFTERNOON Atorvastatin (Lipitor), 10 MG PO HS Budesonide/Formoterol Fumarate (Symbicort 160/4.5 Inhaler), 2 PUFFS INH BID Duloxetine Hcl (Cymbalta), 40 MG PO QAM Flecainide Acetate (Tambocor), 50 MG PO TID Fluticasone Propionate (Nasal) (Flonase Allergy Relief), 1 SPRAY NA DAILY Furosemide (Lasix), 160 MG PO BID Metformin Hcl (Glucophage), 1,000 MG PO BID Metoprolol Succinate (Toprol Xl), 100 MG PO TID Montelukast Sodium (Singulair), 10 MG PO HS Omeprazole (Prilosec), 20 MG PO BID Potassium Chloride (Micro-K Ext Rel), 10 MEQ PO 5XD Spironolactone (Aldactone), 50 MG PO BID Tramadol Hcl (Ultram), 100 MG PO TID Umeclidinium [place] (Incruse Ellipta), 1 PUFF INH QAM Scheduled PRN Dronabinol (Marinol), 5 MG PO DAILY PRN for Nausea Prochlorperazine Maleate (Compazine), 10 MG PO Q6H PRN for Nausea or Vomiting [Proair], 2 PUFF INH QID PRN for Shortness of Breath Review of Systems Constitutional: No chills, No fever Eyes: No worsening of vision ENT: No hearing loss Respiratory: + cough (dry and BL), No dyspnea on exertion, No shortness of breath, No sputum, No wheezing Cardiovascular: No chest pain Abdomen: + nausea, + vomiting, No constipation, No diarrhea, No pain Musculoskeletal: No joint pain, No muscle pain Genitourinary - Female: No dysuria, No hematuria Neurologic: + weakness, No balance problems, No numbness/tingling Endocrine: + fatigue Hematologic / Lymphatic: No abnormal bleeding/bruising Integumentary: No rash Physical Exam Vital Signs Date Time Temp Pulse Resp B/P Pulse Ox O2 Delivery O2 Flow Rate FiO2 03/29/17 23:19 71 20 113/71 99 Room Air 77 83/57 81 72/51 03/29/17 22:02 73 20 103/65 97 Room Air 03/29/17 21:34 74 03/29/17 20:27 36.6 84 20 91/64 94 Room Air General Appearance: no apparent distress Head: normocephalic, atraumatic Eyes: normal inspection ENT: normal ENT inspection Neck: supple Respiratory/Chest: no respiratory distress, no accessory muscle use, + decreased breath sounds (left lower base) Cardiovascular: regular rate, rhythm, no murmur Abdomen/GI: normal bowel sounds, soft, + tenderness (minimally tender to the epigastric region) Back: normal inspection Extremities/Musculoskelatal: no calf tenderness, no pedal edema Neurologic/Psych: alert, normal mood/affect, oriented x 3 Skin: normal color, warm/dry, no rash Lymphatic: no adenopathy Diagnostics Laboratory Results Results Past 24 Hours Test 03/29/17 21:20 03/29/17 21:27 03/29/17 23:30 Range/Units White Blood Count 8.43 4.8-10.8 K/uL Red Blood Count 4.38 4.2-5.4 M/uL Hemoglobin 13.2 12.0-16.0 g/dL Hematocrit 38.3 37-47 % Mean Corpuscular Volume 87.4 80-100 fL Mean Corpuscular Hemoglobin 30.1 25-34 pg Mean Corpuscular Hemoglobin Concent 34.5 32-36 g/dl Platelet Count 341 130-400 K/uL Mean Platelet Volume 9.1 7.4-10.4 fL Neutrophils (%) (Auto) 74.1 % Lymphocytes (%) (Auto) 23.5 % Monocytes (%) (Auto) 0.6 % Eosinophils (%) (Auto) 1.2 % Basophils (%) (Auto) 0.2 % Neutrophils # (Auto) 6.25 1.4-6.5 K/uL Lymphocytes # (Auto) 1.98 1.2-3.4 K/uL Monocytes # (Auto) 0.05 0.11-0.59 K/uL Eosinophils # (Auto) 0.10 0-0.5 K/uL Basophils # (Auto) 0.02 0-0.2 K/uL RDW Standard Deviation 48.6 36.4-46.3 fL RDW Coefficient of Variation 15.4 11.5-14.5 % Immature Granulocyte % (Auto) 0.4 % Immature Granulocyte # (Auto) 0.03 0.00-0.02 K/uL Sodium Level 127 136-145 mmol/L Potassium Level 3.9 3.5-5.1 mmol/L Chloride Level 88 98-107 mmol/L Carbon Dioxide Level 25 21-32 mmol/L Anion Gap 14.0 3-11 mmol/L Blood Urea Nitrogen 51 7-18 mg/dl Creatinine 1.90 0.60-1.20 mg/dl Est Creatinine Clear Calc Drug Dose 37.0 ml/min Estimated GFR () 31.7 Estimated GFR (Non- 27.4 BUN/Creatinine Ratio 26.9 10-20 Random Glucose 141 70-99 mg/dl Calcium Level 8.8 8.5-10.1 mg/dl Total Bilirubin 0.5 0.2-1 mg/dl Direct Bilirubin 0.1 0-0.2 mg/dl Aspartate Amino Transf (AST/SGOT) 24 15-37 U/L Alanine Aminotransferase (ALT/SGPT) 34 12-78 U/L Alkaline Phosphatase 96 45-117 U/L Total Protein 7.9 6.4-8.2 gm/dl Albumin 3.4 3.4-5.0 gm/dl Lipase 187 73-393 U/L Bedside Troponin I 0.000 0-0.045 ng/ml Urine Color YELLOW Urine Appearance CLEAR CLEAR Urine pH 5.5 4.5-7.5 Urine Specific [place] 1.008 1.000-1.030 Urine Protein NEG NEG Urine Glucose (UA) NEG NEG Urine Ketones NEG NEG Urine Occult Blood NEG NEG Urine Nitrite NEG NEG Urine Bilirubin NEG NEG Urine Urobilinogen NEG NEG Urine Leukocyte Esterase NEG NEG Diagnostic Radiology [~ rep ct add3]] CHEST AND ABDOMEN 2 VIEWS HISTORY: eval for obstruction. Loss of appetite. COMPARISON: Chest 01/16/2017. PET CT 12/17/2016. FINDINGS: Small left pleural effusion, unchanged. Surgical clips within the left hilum. No pneumothorax. The right lung is clear. No dilated loops of bowel to suggest an obstruction. Surgical clips seen within the right upper quadrant. Multiple pelvic phleboliths. Suture material within the right side of the abdomen. Moderate well-formed stool seen within the colon. No pneumoperitoneum. No pneumatosis. Suture material within the left hilum. IMPRESSION: 1. Small left pleural effusion, unchanged. 2. Moderate well-formed stool seen within the colon. 3. No evidence for bowel obstruction. EKG Normal sinus rhythm Normal ECG When compared with ECG of 15-JAN-2017 10:40, Sinus rhythm has replaced Atrial fibrillation Vent. rate has decreased BY 41 BPM QTc 447 Impression Assessment and Plan This is a 62 yo f that is suffering from chemo induced N&V from treatment for her Squamous cell lung cancer and resulting in hyponatremia and dehydration Chemo induced N&V for treatment of her squamous cell lung cancer IB, s/p LLL lobectomy - Compazine for nausea since there was concern for Zofran - repeat EKG in the am - consult hem/ onc Hypovolemia resulting in GIOVANA on CKD III - Bolus received in the ED - continue IVF @ 100cc/h NSS with 20 KCL Hyponatremia - dehydration vs paraneoplastic - IVF as above - recheck in am - goal is to replete approx approx < 0.5/h Epigastric fullness most likely secondary to fecal retention - miralax bid COPD - stable - continue symbicort and proair DMII - patient has poor appetite so will use ISS without carb ratio - metformin held HTN - Lasix held - continue flecanide, metoprolol, spironolactone - cont atorvastatin PAF - Xarelto held - cont meds as above Depression - continue cymbalta GERD - cont equiv of omeprazole as protonix DVT prophylaxis heparin and scd Resident Physician Supervision Note: I was present with Dr. Brody during the history and exam. I discussed the case with the resident and agree with the findings and plan as documented in the note. Any exceptions or clarifications are listed here: 62 y/o F undergoing treatment for squamous lung CA - currently on Cisplatinum and Etoposide Pt presents with intract N/V - dehydration, hypoNa - additionally appears slight ;y confused OE - AAO x 2 S1,2 R Reduced air entry R base NT, ND No CCE P: IVF - antiemetics - trend BMP Discuss side effects with HO States she does not want to continue chemo which should be readdressed AM if she feels better Documented By: Michoacano Dumont Level of Care Med/Surg Resuscitation Status FULL RESUSCITATION VTE Prophylaxis VTE Risk Assessment Done? Y/N: Yes Risk Level: Moderate Given or contraindicated: Unfractionated heparin SQ, SCD's Social Service Consult Cancer Patient Under [place] Note Total Time: Critical Care 30 - 74 minutes Additional Copies To Ok Galo M.D.
[2017-03-30] MEDS ORDERED: NSS + 20MEQ KCL 1000ML 1,000 ML IV SCH (02:00)
[2017-03-30 02:05] VITALS: BP 125/74; PULSE 76; TEMP 37.2; O2SAT 96; Ht 167.6 cm; Wt 98.4 kg
[2017-03-30 03:35] LABS: HEMATOCRIT 39.9 % (37-47); MEAN CELL VOLUME 89.3 fL (80-100); MEAN CORPUSCULAR HEMOGLOBIN 30.6 pg (25-34); MEAN CORPUSCULAR HGB CONC 34.3 g/dl (32-36); MEAN PLATELET VOLUME 9.1 fL (7.4-10.4); PLATELET COUNT 306 K/uL (130-400); RED BLOOD COUNT 4.47 M/uL (4.2-5.4); WHITE BLOOD COUNT 8.43 K/uL (4.8-10.8)
[2017-03-30 04:04] LABS: BUN/CREATININE RATIO 26.9 (10-20); CALCIUM 8.7 mg/dl (8.5-10.1); CREATININE 1.7 mg/dl (0.60-1.20); POTASSIUM 3.7 mmol/L (3.5-5.1)
[2017-03-30] MEDS ORDERED: GLUCOSE 40% GEL 15 GM TUBE PO PRN (04:45)
[2017-03-30] MEDS ORDERED: GLUCOSE 10 TABS/TUBE PO PRN (04:45)
[2017-03-30] MEDS ORDERED: DEXTROSE 50% 50 ML SYR IV PRN (04:45)
[2017-03-30] MEDS ORDERED: GLUCAGON FOR INJ 1 MG VIAL SQ PRN (04:45)
[2017-03-30 06:10] LABS: PROTHROMBIN TIME (PATIENT) 10.6 SECONDS (9.0-12.0)
[2017-03-30] MEDS ORDERED: BUDESONIDE/FORMOTEROL FUMARATE 160/4.5 60 PUFFS/INHALER INH SCH (08:00)
[2017-03-30] MEDS ORDERED: DULOXETINE HCL 20 MG CAP PO SCH (08:00)
[2017-03-30] MEDS ORDERED: ASPIRIN 81 MG ECTAB PO SCH (08:00)
[2017-03-30] MEDS ORDERED: PANTOprazole SOD 40 MG TAB PO SCH (08:00)
[2017-03-30] MEDS ORDERED: TRAMADOL HCL 50 MG TAB PO PRN (08:00)
[2017-03-30] MEDS ORDERED: POLYETHYLENE (MIRALAX) 17 GM PACK PO SCH (08:00)
[2017-03-30] MEDS ORDERED: POTASSIUM CHLORIDE 10 MEQ TABCR PO SCH (08:00)
[2017-03-30] MEDS ORDERED: FLUTICASONE PROPIONATE NA SPR 16 GM BTL SCH (08:00)
[2017-03-30 08:37] VITALS: BP 104/70; PULSE 86; TEMP 36.9; O2SAT 96
[2017-03-30] MEDS ORDERED: HEPARIN SOD 5000 UNIT/0.5 ML CARP SQ SCH ×2 (09:00→14:00)
--- NOTE | 2017-03-30 09:31 | Oncology Consultation ---
Oncology/Heme Consultation Date of Consultation: March 30, 2017. Attending Physician: Michoacano Dumont M.D. Reason for Consultation: History of lung carcinoma History of Present Illness Ms. Schilling is a 62-year-old female that in December of this year had a pathologic stage Ib non-small cell lung carcinoma resected. She had been receiving adjuvant chemotherapy made up of cis-lac vieux and etoposide. The original plan was to deliver 4 cycles. She completed her second cycle chest last week. Subsequently and afterwards she had repeated nausea vomiting and just felt weak all over. She presented to the emergency room with the above. She had a similar event after her first cycle. She states she just felt unsteady on her feet. She denies any bleeding or blood in her stool. She denies any fever or chills. She denies any new shortness of breath or unusual new pain Past Medical/Surgical History Medical Problems: (1) Dehydration Status: Acute (2) Elevated serum creatinine Status: Acute (3) Orthostatic hypotension Status: Acute Family History Diabetes mellitus SISTER FHx: arthritis SISTER FHx: coronary artery disease MOTHER SISTER Hypertension SISTER Social History Smoking Status: Former Smoker Smokeless Tobacco Use: No Alcohol Use: none Drug Use: none Marital Status: Occupation Status: unemployed Allergies Coded Allergies: Diltiazem (Verified Allergy, Severe, SHORTNESS OF BREATH AND SWELLING OF HANDS AND FACE, 02/18/17) Adhesives (Verified Allergy, Mild, BLISTERS, 02/18/17) Latex1 -Allergic Contact Dermititis (Verified Allergy, Mild, RASH, 02/18/17 ) Indomethacin (Unverified Allergy, Unknown, per pulm note , 02/18/17) Penicillins (Verified Allergy, Unknown, WELTS IN MOUTH AND SPREAD TO BODY , 02/18/17) Codeine (Verified Adverse Reaction, Mild, N&V&GI PAIN, 02/18/17) Paroxetine (Verified Adverse Reaction, Unknown, GI SYMPTOMS, 02/18/17) Varenicline (Verified Adverse Reaction, Unknown, GI SYMPTOMS, 02/18/17) Home Medications Scheduled Aspirin (Aspirin Ec), 81 MG PO AFTERNOON Atorvastatin (Lipitor), 10 MG PO HS Budesonide/Formoterol Fumarate (Symbicort 160/4.5 Inhaler), 2 PUFFS INH BID Duloxetine Hcl (Cymbalta), 40 MG PO QAM Flecainide Acetate (Tambocor), 50 MG PO TID Fluticasone Propionate (Nasal) (Flonase Allergy Relief), 1 SPRAY NA DAILY Furosemide (Lasix), 160 MG PO BID Metformin Hcl (Glucophage), 1,000 MG PO BID Metoprolol Succinate (Toprol Xl), 100 MG PO TID Montelukast Sodium (Singulair), 10 MG PO HS Omeprazole (Prilosec), 20 MG PO BID Potassium Chloride (Micro-K Ext Rel), 10 MEQ PO 5XD Spironolactone (Aldactone), 50 MG PO BID Tramadol Hcl (Ultram), 100 MG PO TID Umeclidinium [place] (Incruse Ellipta), 1 PUFF INH QAM Scheduled PRN Dronabinol (Marinol), 5 MG PO DAILY PRN for Nausea Prochlorperazine Maleate (Compazine), 10 MG PO Q6H PRN for Nausea or Vomiting [Proair], 2 PUFF INH QID PRN for Shortness of Breath Current Inpatient Medications Current Inpatient Medications Medications (Trade) Dose Ordered Sig/Armani Route Start Time Stop Time Status Last Admin Dose Admin Acetaminophen 650 mg 650 mg Q4H PRN PO 03/30/17 00:15 04/29/17 00:14 Potassium Chloride/Sodium Chloride (Nss + 20meq KCl 1000ml) 1,000 ml @ 100 mls/hr Q10H IV 03/30/17 02:00 04/29/17 01:59 Future Hold 03/30/17 02:54 100 MLS/HR Aspirin (Ecotrin Tab) 81 mg DAILY PO 03/30/17 08:00 04/29/17 08:59 Atorvastatin Calcium (Lipitor Tab) 10 mg HS PO 03/30/17 21:00 04/29/17 20:59 Budesonide/ Formoterol Fumarate (Symbicort 160/ 4.5 Inh) 2 puffs BID INH 03/30/17 08:00 04/29/17 08:59 Duloxetine HCl (Cymbalta Cap) 40 mg QAM PO 03/30/17 08:00 04/29/17 08:59 Flecainide Acetate (Tambocor Tab) 50 mg TID PO 03/30/17 08:00 04/29/17 08:59 Fluticasone Propionate (Flonase Nasal [place]) 2 sprays DAILY NA 03/30/17 08:00 04/29/17 08:59 Metoprolol Succinate (Toprol Xl Tab) 100 mg TID PO 03/30/17 08:00 04/29/17 08:59 Montelukast Sodium (Singulair Tab) 10 mg HS PO 03/30/17 21:00 04/29/17 20:59 Potassium Chloride (Klor-Con M10) 10 meq DAILY PO 03/30/17 08:00 04/29/17 08:59 Tramadol HCl (Ultram Tab) 100 mg TID PRN PO 03/30/17 08:00 04/29/17 08:59 Insulin Aspart (novoLOG ASPART) SLIDING SCALE G... ACHS SC 03/30/17 06:30 04/29/17 06:59 Dronabinol (Marinol Cap) 5 mg DAILY PRN PO 03/30/17 00:30 04/29/17 00:29 Pantoprazole Sodium (Protonix Tab) 40 mg BID PO 03/30/17 08:00 04/29/17 08:59 Spironolactone (Aldactone Tab) 50 mg BID17 PO 03/30/17 09:00 04/29/17 08:59 Miscellaneous Information (Order Awaiting Action) 1 ea QS N/A 03/30/17 08:00 04/29/17 07:59 Albuterol 2 puffs 2 puffs QID PRN INH 03/30/17 00:30 04/29/17 00:29 Prochlorperazine Edisylate/Syringe (Compazine Inj/ Syringe) 5 ml @ 5 mls/min Q6H PRN IV 03/30/17 00:30 04/29/17 00:29 Heparin Sodium (Porcine) (Heparin Sq 5000 Unit/0.5ml) 5,000 unit Q12 SQ 03/30/17 09:00 04/29/17 08:59 Polyethylene (Miralax Powder Packet) 17 gm BID PO 03/30/17 08:00 04/29/17 08:59 Glucose (Glucose 40% Gel) 15-30 GRAMS 15 GRAMS... UD PRN PO 03/30/17 04:45 04/29/17 04:44 Glucose (Glucose Chew Tab) 4-8 Tablets 4 Tabl... UD PRN PO 03/30/17 04:45 04/29/17 04:44 Dextrose (Dextrose 50% 50ML Syringe) 25-50ML OF 50% DW IV FOR... UD PRN IV 03/30/17 04:45 04/29/17 04:44 Glucagon (Glucagon Inj) 1 mg UD PRN SQ 03/30/17 04:45 04/29/17 04:44 Review of Systems Constitutional: Negative for weight loss, night sweats, or fever Eyes: Negative for event change of vision ENT: Negative for epistaxis, nasal discharge, sore throat, or deafness Cardiovascular: Negative for chest pain, palpitations, dizziness, diaphoresis Respiratory: Negative for new shortness of breath,hemoptysis, or purulent cough Gastrointestinal: Negative for significant diarrhea, hematemesis, melena, positive for nausea, vomiting, negative for dyspepsia Integumentary (skin): Negative for rash or jaundice discoloration Genitourinary: Negative for urinary frequency, hematuria, or dysuria Neurological: Negative for weakness, seizure activity, headache, or dizziness Lymphatic/Hematologic: Negative for petechiae, bleeding or new adenopathy Musculoskeletal: Negative for new joint or back pain Allergic/Immunologic: Negative for unusual rash or pruritis. Physical Exam Date Time Temp Pulse Resp B/P Pulse Ox O2 Delivery O2 Flow Rate FiO2 03/30/17 09:00 Room Air 03/30/17 08:37 36.9 86 16 104/70 96 Room Air 03/30/17 02:05 37.2 76 18 125/74 96 Room Air 03/30/17 01:11 72 20 104/69 95 Room Air 03/29/17 23:19 71 20 113/71 99 Room Air 77 83/57 81 72/51 03/29/17 22:02 73 20 103/65 97 Room Air 03/29/17 21:34 74 03/29/17 20:27 36.6 84 20 91/64 94 Room Air Constitutional: vitals are stable. Alert alopecia female. Oriented 3 Eyes: Eyes are VALERI EOMI without conjuctival erythema or icterus. ENT: External examination was negative for masses. Neck: Negative for masses or palpable thyromegaly Respiratory: Lung sounds were generally clear bilaterally Cardiovascular: Heart was RRR without significant murmur, gallops aoe rubs Gastrointestinal: No palpable hepatic or splenomegaly. The abdomen was soft with normal bowel sounds. Lymphatic system: there was no palpable peripheral lymphadenopathy Musculoskeletal System: The musculoskeletal system seemed concordant with age. Skin: The skin was negative for jaundice. Neurologic exam: The exam was negative for any focal findings. Deep tendon reflexes were equal and symmetrical. Psychiatric exam: Was essentially negative with normal mood and effect. Breast exam: Not done Extremities: Negative for edema erythema Laboratory Results Last 24 Hours Test 03/29/17 21:20 03/29/17 21:27 03/29/17 23:30 03/30/17 03:00 White Blood Count 8.43 K/uL 8.43 K/uL Red Blood Count 4.38 M/uL 4.47 M/uL Hemoglobin 13.2 g/dL 13.7 g/dL Hematocrit 38.3 % 39.9 % Mean Corpuscular Volume 87.4 fL 89.3 fL Mean Corpuscular Hemoglobin 30.1 pg 30.6 pg Mean Corpuscular Hemoglobin Concent 34.5 g/dl 34.3 g/dl Platelet Count 341 K/uL 306 K/uL Mean Platelet Volume 9.1 fL 9.1 fL Neutrophils (%) (Auto) 74.1 % Lymphocytes (%) (Auto) 23.5 % Monocytes (%) (Auto) 0.6 % Eosinophils (%) (Auto) 1.2 % Basophils (%) (Auto) 0.2 % Neutrophils # (Auto) 6.25 K/uL Lymphocytes # (Auto) 1.98 K/uL Monocytes # (Auto) 0.05 K/uL Eosinophils # (Auto) 0.10 K/uL Basophils # (Auto) 0.02 K/uL RDW Standard Deviation 48.6 fL 50.4 fL RDW Coefficient of Variation 15.4 % 15.5 % Immature Granulocyte % (Auto) 0.4 % Immature Granulocyte # (Auto) 0.03 K/uL Sodium Level 127 mmol/L 134 mmol/L Potassium Level 3.9 mmol/L 3.7 mmol/L Chloride Level 88 mmol/L 93 mmol/L Carbon Dioxide Level 25 mmol/L 30 mmol/L Anion Gap 14.0 mmol/L 11.0 mmol/L Blood Urea Nitrogen 51 mg/dl 46 mg/dl Creatinine 1.90 mg/dl 1.70 mg/dl Est Creatinine Clear Calc Drug Dose 37.0 ml/min 39.5 ml/min Estimated GFR () 31.7 36.3 Estimated GFR (Non- 27.4 31.3 BUN/Creatinine Ratio 26.9 26.9 Random Glucose 141 mg/dl 97 mg/dl Calcium Level 8.8 mg/dl 8.7 mg/dl Total Bilirubin 0.5 mg/dl Direct Bilirubin 0.1 mg/dl Aspartate Amino Transf (AST/SGOT) 24 U/L Alanine Aminotransferase (ALT/SGPT) 34 U/L Alkaline Phosphatase 96 U/L Total Protein 7.9 gm/dl Albumin 3.4 gm/dl Lipase 187 U/L Bedside Troponin I 0.000 ng/ml Urine Color YELLOW Urine Appearance CLEAR Urine pH 5.5 Urine Specific [place] 1.008 Urine Protein NEG Urine Glucose (UA) NEG Urine Ketones NEG Urine Occult Blood NEG Urine Nitrite NEG Urine Bilirubin NEG Urine Urobilinogen NEG Urine Leukocyte Esterase NEG Test 03/30/17 05:23 03/30/17 08:57 Prothrombin Time 10.6 SECONDS Prothromb Time International Ratio 1.0 Bedside Glucose 109 mg/dl Assessment & Plan History of non-small cell lung carcinoma stage IB resected in December the left lung. She now has nausea vomiting and significant side effects after her second course of chemotherapy. She feels better today. Her creatinine was 1.9 and admission and better today with hydration. She has stated to me today that she has decided against further chemotherapy. Supportive care will continue and I will pass this message on Dr. Lucero in our clinic. We will arrange for follow-up in our clinic.
[2017-03-30] MEDS: SPIRONOLACTONE 25 MG TAB PO SCH ×2 (09:36→17:08)
[2017-03-30] MEDS: FLECAINIDE ACETATE 100 MG TAB PO SCH ×2 (09:37→13:27)
[2017-03-30] MEDS: METOPROLOL SUCC 50MG EXT REL TAB PO SCH ×2 (09:38→13:28)
[2017-03-30] MEDS: INSULIN ASPART 100 UNITS/ML 3 ML PEN SC SCH ×3 (09:40→17:06)
[2017-03-30 12:16] VITALS: BP 98/69; PULSE 120; TEMP 36.3; O2SAT 97
--- NOTE | 2017-03-30 13:02 | Family Medicine Progress Note ---
Progress Note Date of Service March 30, 2017. Subjective Pt evaluation today including: conversation w/ patient, physical exam, chart review, lab review Pain: None PO Intake: improving Voiding: no voiding problems, no incontinence Doing well currently Was able to tolerate diet this morning Still feels slightly unsteady but feels better Would like to go home today if possible Constitutional: No chills, No fever Eyes: No eye pain, No redness, No worsening of vision ENT: No hearing loss, No nasal symptoms, No sore throat Respiratory: No cough, No shortness of breath, No sputum, No wheezing Cardiovascular: No PND, No chest pain, No claudication, No edema, No orthopnea Abdomen: No constipation, No diarrhea, No nausea, No pain, No vomiting Female : No dysuria, No urinary frequency Neurologic: + weakness, No numbness/tingling, No paralysis Heme: No clotting problems, No swollen lymph nodes Skin: No new/changing skin lesions, No rash Medications Current Inpatient Medications Medications (Trade) Dose Ordered Sig/Armani Route Start Time Stop Time Status Last Admin Dose Admin Acetaminophen 650 mg 650 mg Q4H PRN PO 03/30/17 00:15 04/29/17 00:14 Potassium Chloride/Sodium Chloride (Nss + 20meq KCl 1000ml) 1,000 ml @ 100 mls/hr Q10H IV 03/30/17 02:00 04/29/17 01:59 Future Hold 03/30/17 02:54 100 MLS/HR Aspirin (Ecotrin Tab) 81 mg DAILY PO 03/30/17 08:00 04/29/17 08:59 03/30/17 09:38 81 MG Atorvastatin Calcium (Lipitor Tab) 10 mg HS PO 03/30/17 21:00 04/29/17 20:59 Budesonide/ Formoterol Fumarate (Symbicort 160/ 4.5 Inh) 2 puffs BID INH 03/30/17 08:00 04/29/17 08:59 03/30/17 09:39 2 PUFFS Duloxetine HCl (Cymbalta Cap) 40 mg QAM PO 03/30/17 08:00 04/29/17 08:59 03/30/17 09:37 40 MG Flecainide Acetate (Tambocor Tab) 50 mg TID PO 03/30/17 08:00 04/29/17 08:59 03/30/17 09:37 50 MG Fluticasone Propionate (Flonase Nasal [place]) 2 sprays DAILY NA 03/30/17 08:00 04/29/17 08:59 03/30/17 09:39 2 SPRAYS Metoprolol Succinate (Toprol Xl Tab) 100 mg TID PO 03/30/17 08:00 04/29/17 08:59 03/30/17 09:38 100 MG Montelukast Sodium (Singulair Tab) 10 mg HS PO 03/30/17 21:00 04/29/17 20:59 Potassium Chloride (Klor-Con M10) 10 meq DAILY PO 03/30/17 08:00 04/29/17 08:59 03/30/17 09:38 10 MEQ Tramadol HCl (Ultram Tab) 100 mg TID PRN PO 03/30/17 08:00 04/29/17 08:59 Insulin Aspart (novoLOG ASPART) SLIDING SCALE G... ACHS SC 03/30/17 06:30 04/29/17 06:59 Dronabinol (Marinol Cap) 5 mg DAILY PRN PO 03/30/17 00:30 04/29/17 00:29 Pantoprazole Sodium (Protonix Tab) 40 mg BID PO 03/30/17 08:00 04/29/17 08:59 03/30/17 09:36 40 MG Spironolactone (Aldactone Tab) 50 mg BID17 PO 03/30/17 09:00 04/29/17 08:59 03/30/17 09:36 50 MG Miscellaneous Information (Order Awaiting Action) 1 ea QS N/A 03/30/17 08:00 04/29/17 07:59 Albuterol 2 puffs 2 puffs QID PRN INH 03/30/17 00:30 04/29/17 00:29 Prochlorperazine Edisylate/Syringe (Compazine Inj/ Syringe) 5 ml @ 5 mls/min Q6H PRN IV 03/30/17 00:30 04/29/17 00:29 Heparin Sodium (Porcine) (Heparin Sq 5000 Unit/0.5ml) 5,000 unit Q12 SQ 03/30/17 09:00 04/29/17 08:59 03/30/17 09:44 5,000 UNIT Polyethylene (Miralax Powder Packet) 17 gm BID PO 03/30/17 08:00 04/29/17 08:59 03/30/17 09:36 17 GM Glucose (Glucose 40% Gel) 15-30 GRAMS 15 GRAMS... UD PRN PO 03/30/17 04:45 04/29/17 04:44 Glucose (Glucose Chew Tab) 4-8 Tablets 4 Tabl... UD PRN PO 03/30/17 04:45 04/29/17 04:44 Dextrose (Dextrose 50% 50ML Syringe) 25-50ML OF 50% DW IV FOR... UD PRN IV 03/30/17 04:45 04/29/17 04:44 Glucagon (Glucagon Inj) 1 mg UD PRN SQ 03/30/17 04:45 04/29/17 04:44 Objective Vital Signs Date Time Temp Pulse Resp B/P Pulse Ox O2 Delivery O2 Flow Rate FiO2 03/30/17 12:16 36.3 120 16 98/69 97 03/30/17 09:00 Room Air 03/30/17 08:37 36.9 86 16 104/70 96 Room Air 03/30/17 02:05 37.2 76 18 125/74 96 Room Air 03/30/17 01:11 72 20 104/69 95 Room Air 03/29/17 23:19 71 20 113/71 99 Room Air 77 83/57 81 72/51 03/29/17 22:02 73 20 103/65 97 Room Air 03/29/17 21:34 74 03/29/17 20:27 36.6 84 20 91/64 94 Room Air Physical Exam General Appearance: WD/WN, no apparent distress Eyes: normal inspection, EOMI ENT: hearing grossly normal, pharynx normal Neck: supple, no adenopathy, no JVD Respiratory/Chest: lungs clear, no respiratory distress, + pertinent finding ( diminished breath sounds on left, though she is known to have lobectomy on that side) Cardiovascular: regular rate, rhythm, no gallop, no murmur Abdomen: normal bowel sounds, non tender, soft Extremities: non-tender, no pedal edema Neurologic/Psychiatric: alert, normal mood/affect, oriented x 3 Skin: normal color, warm/dry, no rash Lymphatic: no adenopathy Laboratory Results Last 24 Hours Test 03/29/17 21:20 03/29/17 21:27 03/29/17 23:30 03/30/17 03:00 White Blood Count 8.43 K/uL 8.43 K/uL Red Blood Count 4.38 M/uL 4.47 M/uL Hemoglobin 13.2 g/dL 13.7 g/dL Hematocrit 38.3 % 39.9 % Mean Corpuscular Volume 87.4 fL 89.3 fL Mean Corpuscular Hemoglobin 30.1 pg 30.6 pg Mean Corpuscular Hemoglobin Concent 34.5 g/dl 34.3 g/dl Platelet Count 341 K/uL 306 K/uL Mean Platelet Volume 9.1 fL 9.1 fL Neutrophils (%) (Auto) 74.1 % Lymphocytes (%) (Auto) 23.5 % Monocytes (%) (Auto) 0.6 % Eosinophils (%) (Auto) 1.2 % Basophils (%) (Auto) 0.2 % Neutrophils # (Auto) 6.25 K/uL Lymphocytes # (Auto) 1.98 K/uL Monocytes # (Auto) 0.05 K/uL Eosinophils # (Auto) 0.10 K/uL Basophils # (Auto) 0.02 K/uL RDW Standard Deviation 48.6 fL 50.4 fL RDW Coefficient of Variation 15.4 % 15.5 % Immature Granulocyte % (Auto) 0.4 % Immature Granulocyte # (Auto) 0.03 K/uL Sodium Level 127 mmol/L 134 mmol/L Potassium Level 3.9 mmol/L 3.7 mmol/L Chloride Level 88 mmol/L 93 mmol/L Carbon Dioxide Level 25 mmol/L 30 mmol/L Anion Gap 14.0 mmol/L 11.0 mmol/L Blood Urea Nitrogen 51 mg/dl 46 mg/dl Creatinine 1.90 mg/dl 1.70 mg/dl Est Creatinine Clear Calc Drug Dose 37.0 ml/min 39.5 ml/min Estimated GFR () 31.7 36.3 Estimated GFR (Non- 27.4 31.3 BUN/Creatinine Ratio 26.9 26.9 Random Glucose 141 mg/dl 97 mg/dl Calcium Level 8.8 mg/dl 8.7 mg/dl Total Bilirubin 0.5 mg/dl Direct Bilirubin 0.1 mg/dl Aspartate Amino Transf (AST/SGOT) 24 U/L Alanine Aminotransferase (ALT/SGPT) 34 U/L Alkaline Phosphatase 96 U/L Total Protein 7.9 gm/dl Albumin 3.4 gm/dl Lipase 187 U/L Bedside Troponin I 0.000 ng/ml Urine Color YELLOW Urine Appearance CLEAR Urine pH 5.5 Urine Specific [place] 1.008 Urine Protein NEG Urine Glucose (UA) NEG Urine Ketones NEG Urine Occult Blood NEG Urine Nitrite NEG Urine Bilirubin NEG Urine Urobilinogen NEG Urine Leukocyte Esterase NEG Test 03/30/17 05:23 03/30/17 08:57 03/30/17 11:38 Prothrombin Time 10.6 SECONDS Prothromb Time International Ratio 1.0 Bedside Glucose 109 mg/dl 109 mg/dl Assessment and Plan This is a 62 with post-chemotherapy nausea/vomiting and inability to maintain PO intake. Marked improvement since admission. Did have dehydration which appears to be improving as well. Patient has expressed desire not to pursue further chemotherapy. Nausea and Vomiting 2/2 Chemotherapy - Continue Compazine as needed - Reviewed EKG QTc is 430 today which is improved, there is no evidence of prolonged QTc at this point - Heme/Onc has seen the patient; will arrange for outpatient follow-up - Patient is still orthostatic with ambulatory dysfunction; will continue orthostatic monitoring q4 hours while admitted Lung Cancer - Follow-up heme/onc with Dr. Alex Lucero - Notes she does not want any more chemotherapy GIOVANA on CKD stage III - 2/2 dehydration/hypovolemia - Baseline Cr 1.1-1.3 - Cr improved to 1.7 (1.9 on admission) - Tolerating PO diet - Repeat BMP in evening to determine if patient is improving enough to be discharged Hyponatremia - 134 today, improved from admission - No mental status changes - Follow while admitted COPD - No evidence of respiratory decompensation, no oxygen requirement - Continue Albuterol, Spiriva and Symbicort Type 2 Diabetes Mellitus - Sliding scale insuline - AC/HS checks - Resume metformin at discharge Coronary Artery Disease - Continue Atorvastatin and Metoprolol - continue flecanide, metoprolol, spironolactone - cont atorvastatin Paroxysmal Atrial Fibrillation - Continue Flecanide and Metoprolol Depression - Continue Duloxetine GERD - Protonix DVT prophylaxis - High risk for VTE due to malignancy - Heparin 5000 TID - SCD Disposition - Med/Surg - Needs OT/PT evaluations in light or orthostasis and subjective weakness - Patient desires discharge today in the setting of GIOVANA; will repeat labs in afternoon and re-assess Continued [facility] stay due to: ambulation difficulties Discharge planning: home
[2017-03-30 13:30] VITALS: BP 116/71; PULSE 112
[2017-03-30 16:09] LABS: BUN/CREATININE RATIO 25.7 (10-20); CALCIUM 8.1 mg/dl (8.5-10.1); CREATININE 1.6 mg/dl (0.60-1.20); MAGNESIUM 1.5 mg/dl (1.8-2.4); PHOSPHORUS 3.3 mg/dl (2.5-4.9); POTASSIUM 3.2 mmol/L (3.5-5.1)
--- NOTE | 2017-03-30 16:52 | Discharge Instructions ---
Discharge Instructions Date of Service March 30, 2017. Admission Reason for Admission: Chemotherapy Induced Nausea And Vomiting Discharge Discharge Diagnosis / Problem: Nausea/Vomiting 2/2 chemotherapy Discharge Goals Goal(s): Decrease discomfort, Improve function Activity Recommendations Activity Limitations: per Instructions/Follow-up section Lifting Limitations: gradually increase as tolerated Exercise/Sports Limitations: gradually increase as tolerated Shower/Bathe: no limitations . Instructions / Follow-Up Instructions / Follow-Up You were admitted for post-chemotherapy nausea and vomiting. Because you were unable to keep food down, you had an acute kidney injury due to dehydration. We treated you with anti-nausea medication which helped and also gave you IV fluids. Overnight, you made an excellent recovery and felt that you could be discharged home with close follow-up with your primary care provider. You blood pressure was slightly low during your hospitalization and it was related to your position. Please go slowly from lying to sitting and sitting to standing and ensure that you are not feeling lightheaded or dizzy before walking around. In addition, we will hold both your Spironolactone and Lasix until you follow-up with your PCP to discuss if it is safe to resume these. Prior to being discharged your Magnesium level was low so we gave you IV magnesium repletion. You potassium level is also low but we think this will improve once you start taking your oral Potassium supplementation. You did still have an acute kidney injury before being discharged. Fortunately , it is improving. However, until it improves you should hold your Metformin. Please monitor your blood sugars in the morning and 2 hours after meals until your primary care physician deems it is safe for you to re-start the Metformin. To help improve your kidney function, please make sure you stay well hydrated over the coming days. You should have your labs re-checked in 1-2 days to ensure that they continue to improve. We will give you a prescription to get the labs done Otherwise, please return to your usual activities gradually as tolerated. If your symptoms fail to improve, acutely worsen, please seek medical attention immediately by either calling your primary care provider or going to your nearest emergency department. You will have follow-up with your oncologist to determine next steps in your treatment plan. Please see your family doctor this week for follow-up. It was a pleasure to be involved in your care and we wish you all the best. Current Hospital Diet Patient's current hospital diet: Diabetes Type 2 Diet, AHA Diet (Heart Healthy) , Low Sodium Diet (2gm Na) Discharge Diet Recommended Diet: Diabetes Type 2 Diet Pending Studies Studies pending at discharge: no Laboratory Results Hemoglobin A1c Test 03/13/17 15:01 Range/Units Estimated Average Glucose 137 mg/dl Hemoglobin A1c 6.4 H 4.5-5.6 % Medical Emergencies . Who to Call and When: Medical Emergencies: If at any time you feel your situation is an emergency, please call 911 immediately. . Non-Emergent Contact Non-Emergency issues call your: Primary Care Provider Call Non-Emergent contact if: you have a fever, your pain is not controlled, your pain is worsening, you have any medication questions . . "Provider Documentation" section prepared by Carlos Crowell. . VTE Core Measure Inpt VTE Proph given/why not?: Unfractionated heparin SQ, SCD's
[2017-03-30 17:02] VITALS: BP 116/71; PULSE 112; TEMP 36.3; O2SAT 97
[2017-03-30] MEDS: MAGNESIUM SULFATE 1GM / D5W 1 GM in PREMIXED IN D5W 100 ML IV SCH ×2 (17:08→18:16)
[2017-03-30 17:14] VITALS: BP_SYST 101; BP_SYST 114; BP_SYST 99; BP_DIAS 61; BP_DIAS 71; BP_DIAS 73; PULSE 125; TEMP 36.4; O2SAT 97
--- NOTE | 2017-03-30 17:19 | Discharge Summary ---
Discharge Summary Date of Service March 30, 2017. (Carlos Crowell MD) Discharge Summary Admission Date: March 30, 2017 at 00:08 Discharge Date: March 30, 2017 Discharge Disposition: Home Principal Diagnosis: nausea and vomiting 2/2 chemotherapy Immunizations: Have You Had Influenza Vaccine: No History of Tetanus Vaccine?: Yes History of Pneumococcal: Yes History of Hepatitis B Vaccine: Yes Consultations: Heme/Onc (Carlos Crowell MD) Medication Reconciliation Continued Medications: Aspirin (Aspirin Ec) 81 Mg Tab 81 MG PO AFTERNOON Atorvastatin (Lipitor) 10 Mg Tab 10 MG PO HS, TAB Budesonide/Formoterol Fumarate (Symbicort 160/4.5 Inhaler) 120 Puffs/ Aero 2 PUFFS INH BID, INHALER Dronabinol (Marinol) 5 Mg Cap 5 MG PO DAILY PRN for Nausea Duloxetine Hcl (Cymbalta) 20 Mg Cap 40 MG PO QAM, CAP Flecainide Acetate (Tambocor) 50 Mg Tab 50 MG PO TID, TAB Fluticasone Propionate (Nasal) (Flonase Allergy Relief) 50 Mcg/Act Spr 1 SPRAY NA DAILY Metoprolol Succinate (Toprol Xl) 100 Mg Tab 100 MG PO TID, TAB Montelukast Sodium (Singulair) 10 Mg Tab 10 MG PO HS, TAB Omeprazole (Prilosec) 20 Mg Capcr 20 MG PO BID, CAP Potassium Chloride (Micro-K Ext Rel) 10 Meq Capcr 10 MEQ PO 5XD, CAP Prochlorperazine Maleate (Compazine) 10 Mg Tab 10 MG PO Q6H PRN for Nausea or Vomiting, TAB Tramadol Hcl (Ultram) 50 Mg Tab 100 MG PO TID, TAB PRN PAIN Umeclidinium [place] (Incruse Ellipta) 62.5 Mcg/Inh Inh 1 PUFF INH QAM [Proair] () 2 PUFF INH QID PRN for Shortness of Breath Discontinued Medications: Furosemide (Lasix) 80 Mg Tab 160 MG PO BID, TAB Metformin Hcl (Glucophage) 1,000 Mg Tab 1000 MG PO BID, TAB Spironolactone (Aldactone) 50 Mg Tab 50 MG PO BID, TAB Discharge Exam Review of Systems: Constitutional: No chills, No fever Eyes: No discharge, No redness, No worsening of vision ENT: No hearing loss, No nasal symptoms, No sore throat, No tinnitus Respiratory: No cough, No sputum, No wheezing Cardiovascular: No chest pain, No orthopnea, No palpitations Abdomen: No nausea, No pain, No vomiting Genitourinary - Female: No dysuria, No urinary frequency, No urinary urgency Genitourinary - Male: No dysuria, No hematuria Neurologic: No paralysis Psychiatric: No anxiety, No depression symptoms, No substance abuse Hematologic / Lymphatic: No abnormal bleeding/bruising, No night sweats, No swollen lymph nodes Integumentary: No rash Physical Exam: General Appearance: WD/WN, no apparent distress Eyes: normal inspection, EOMI ENT: normal ENT inspection, pharynx normal Neck: supple, no adenopathy, no JVD Respiratory/Chest: lungs clear, no respiratory distress, + pertinent finding (diminished breath sounds at left base 2/2 hx of lobectomy) Cardiovascular: regular rate, rhythm, no gallop, no murmur Abdomen / GI: normal bowel sounds, non tender, soft Extremities: normal inspection, no calf tenderness, no pedal edema Neurologic/Psychiatric: alert, normal mood/affect, oriented x 3 Skin: normal color, warm/dry, no rash Lymphatic: no adenopathy (Carlos Crowell MD) not feeling weak, dizzi, nauseous anymore able to keep food down from this morning Review of Systems: Constitutional: No fever Respiratory: No shortness of breath Cardiovascular: No chest pain Abdomen: No pain Physical Exam: General Appearance: no apparent distress Respiratory/Chest: lungs clear, no respiratory distress Cardiovascular: regular rate, rhythm Abdomen / GI: soft Neurologic/Psychiatric: alert, oriented x 3 Skin: warm/dry (Carmelina Crawford M.D.) Hospital Course This is a 62 with post-chemotherapy nausea/vomiting and inability to maintain PO intake. Admitted with GIOVANA and intolerance to PO intake. Nausea and Vomiting 2/2 Chemotherapy - Continued Compazine as needed - Reviewed EKG QTc is 430 today which is improved, there is no evidence of prolonged QTc at this point - Heme/Onc has seen the patient; will arrange for outpatient follow-up - Orthostasis 2/2 dehydration; held Spironolactone and Lasix at discharge until PCP follow-up Lung Cancer - Follow-up heme/onc with Dr. Alex Lucero - Notes she does not want any more chemotherapy; needs f/u appointment with oncologist Dr. Lucero GIOVANA on CKD stage III - 2/2 dehydration/hypovolemia - Baseline Cr 1.1-1.3 - Cr improved to 1.6 at discharge (1.9 on admission) - Tolerating PO diet and fluid intake; encouraged to drink fluids at discharge - Will repeat BMP in 1-2 days following discharge Hyponatremia - 134 today, improved from admission - No mental status changes - Repeat BMP 1-2 days after discharge Hypomagnesemia - 2 g Mag Sulfate given prior to discharge - Repeat Mg level 1-2 days after discharge COPD - No evidence of respiratory decompensation, no oxygen requirement - Continued Albuterol, Spiriva and Symbicort - No changes at discharge Type 2 Diabetes Mellitus - Sliding scale Insulin; AC/HS checks - Held Metformin at discharge due to resolving GIOVANA - Recommended QID checks at home until Metformin re-started Coronary Artery Disease - Continue Atorvastatin and Metoprolol - Continue flecainide, metoprolol, spironolactone; spironolactone held at discharge due to acute orthostasis - cont atorvastatin Paroxysmal Atrial Fibrillation - Continue Flecanide and Metoprolol Depression - Continued Duloxetine GERD - Protonix - Resume home PPI at discharge DVT prophylaxis - High risk for VTE during hospitalization due to malignancy - Heparin 5000 TID and SCD Disposition - Med/Surg - Patient was ambulating well at discharge - needs PCP follow-up this week - Needs Oncology follow-up for further treatment plan discussion - Will have repeat BMP and Mg in 1-2 days Improved over 24 hour period; unremarkable hospital course. Total Time Spent: Less than 30 minutes This includes examination of the patient, discharge planning, medication reconciliation, and communication with other providers. (Carlos Crowell MD) I have reviewed the medical record and performed a history and physical examination of this patient today. I have discussed the case with Dr. Crowell. The above note reflects my findings, conclusions, and recommendations. Total Time Spent: Greater than 30 minutes (35) (Carmelina Crawford M.D.) Discharge Instructions Please refer to the electronic Patient Visit Report (Discharge Instructions) for additional information. (Carlos Crowell MD) Follow-Up PCP in 3-5 days Oncology for follow-up treatment plan. (Carlos Crowell MD) Additional Copies To Ok Galo M.D.
[2017-03-30] MEDS ORDERED: ATORVASTATIN 10 MG TAB PO SCH (21:00)
[2017-03-30] MEDS ORDERED: MONTELUKAST SOD 10 MG TAB PO SCH (21:00)
== END 2017-03-30 19:45 | disposition home or self-care (01) | DRG 683 ==
LOC: ENRESERVDT → ENRESERVTM → C.EDB 20:26 → C.4E 03-30 00:08
PROVIDERS: ADMIT Internal Medicine; ATTEND Family Medicine
DX: N17.9 Acute kidney failure, unspecified (principal); E86.0 Dehydration; E87.1 Hypo-osmolality and hyponatremia; C34.90 Malignant neoplasm of unspecified part of unspecified bronchus or lung; T45.1X5A Adverse effect of antineoplastic and immunosuppressive drugs, initial encounter; I95.1 Orthostatic hypotension; E83.42 Hypomagnesemia; R11.2 Nausea with vomiting, unspecified; E11.21 Type 2 diabetes mellitus with diabetic nephropathy; K21.9 Gastro-esophageal reflux disease without esophagitis; J44.9 Chronic obstructive pulmonary disease, unspecified; I12.9 Hypertensive chronic kidney disease with stage 1 through stage 4 chronic kidney disease, or unspecified chronic kidney disease; I48.0 Paroxysmal atrial fibrillation; Z87.891 Personal history of nicotine dependence; Z96.653 Presence of artificial knee joint, bilateral; K59.00 Constipation, unspecified; F32.9 Major depressive disorder, single episode, unspecified; N18.3 Chronic kidney disease, stage 3 (moderate); Z91.040 Latex allergy status; Z90.2 Acquired absence of lung [part of]; Z88.0 Allergy status to penicillin; Z79.82 Long term (current) use of aspirin; Y92.009 Unspecified place in unspecified non-institutional (private) residence as the place of occurrence of the external cause

== ENCOUNTER → 2017-04-01 | Outpatient (CLI) | payer OTHER ==
[~2017-04-01] MED LIST changes: +ALBU18002 PO; -ALBU1AER9 INH; -FURO80TA63 PO; -METF-384 PO; +MRN5 PO; -POTA-335 PO; +POTA10CA28 PO; +PROAIR INH; +PROC1TAB5 PO; -SPIR50TA3 PO
[2017-04-01 17:23] LABS: BASO % 1.2 %; BASO ABS # 0.05 K/uL (0-0.2); COMPLETE YES; EOS % 2.1 %; HEMATOCRIT 32.9 % (37-47); IG% 1.7 %; LYMPH % 28.7 %; LYMPH ABS # 1.21 K/uL (1.2-3.4); MEAN CELL VOLUME 89.2 fL (80-100); MEAN CORPUSCULAR HEMOGLOBIN 29.8 pg (25-34); MEAN CORPUSCULAR HGB CONC 33.4 g/dl (32-36); MEAN PLATELET VOLUME 9.3 fL (7.4-10.4); MONO % 0.5 %; NEUT % 65.8 %; PLATELET COUNT 215 K/uL (130-400); RED BLOOD COUNT 3.69 M/uL (4.2-5.4); WHITE BLOOD COUNT 4.21 K/uL (4.8-10.8)
[2017-04-01 19:04] LABS: ALB/GLOB RATIO 0.7 (0.9-2); ALKALINE PHOSPHATASE 83 U/L (45-117); ALT/SGPT 24 U/L (12-78); AST/SGOT 17 U/L (15-37); BLOOD UREA NITROGEN 17 mg/dl (7-18); BUN/CREATININE RATIO 17.6 (10-20); CALCIUM 8.6 mg/dl (8.5-10.1); CARBON DIOXIDE 26 mmol/L (21-32); CHLORIDE 99 mmol/L (98-107); CREATININE 0.99 mg/dl (0.60-1.20); GLUCOSE 99 mg/dl (70-99); MAGNESIUM 1.6 mg/dl (1.8-2.4); POTASSIUM 4.5 mmol/L (3.5-5.1); SODIUM 132 mmol/L (136-145)
== END | disposition home or self-care (01) ==
LOC: C.LABPBG 14:04
PROVIDERS: ATTEND Internal Medicine Hematology & Oncology
DX: C34.32 Malignant neoplasm of lower lobe, left bronchus or lung (principal)

== ENCOUNTER 2017-04-09 22:41 | Emergency (ER) | payer OTHER ==
[~2017-04-09] VITALS: Ht 167.6 cm; Wt 105.7 kg
[~2017-04-09 22:41] MED LIST changes: -ALBU18002 PO
[2017-04-09] MEDS ORDERED: LORAZEPAM 2 MG/ML 1 ML VIAL ONE (22:56)
[2017-04-09] MEDS ORDERED: NURSING VERBAL MED ORDER ONE (22:57)
[2017-04-09 22:58] VITALS: TEMP 37.1; O2SAT 100
[2017-04-09 23:06] VITALS: Ht 167.6 cm; Wt 105.7 kg
[2017-04-09] MEDS ORDERED: ALBU18002 PO (23:27)
[2017-04-09 23:30] LABS: ALLEN TEST POS (POS); ARTERIAL BLOOD GAS HCO3 21 mmol/L (19-24); ARTERIAL BLOOD GAS PO2 163 mm/Hg (80-95); ARTERIAL BLOOD GAS pH 7.48 (7.35-7.45); O2 ADMINISTRATION 4 L
[2017-04-09 23:33] LABS: POINT OF CARE PRO-BNP 529 pg/ml (0-900); POINT OF CARE TROPONIN I < 0.030 ng/ml (0-0.045)
[2017-04-09] MEDS ORDERED: OPTIRAY 320 IV PRN (23:45)
[2017-04-09 23:55] LABS: ALB/GLOB RATIO 0.6 (0.9-2); BUN/CREATININE RATIO 17.1 (10-20); CALCIUM 6.2 mg/dl (8.5-10.1); CREATININE 1.3 mg/dl (0.60-1.20); POTASSIUM 3.8 mmol/L (3.5-5.1)
[2017-04-09 23:56] LABS: HEMATOCRIT 30.8 % (37-47); MEAN CELL VOLUME 86.5 fL (80-100); MEAN CORPUSCULAR HEMOGLOBIN 29.2 pg (25-34); MEAN CORPUSCULAR HGB CONC 33.8 g/dl (32-36); MEAN PLATELET VOLUME 9.8 fL (7.4-10.4); PLATELET COUNT 103 K/uL (130-400); RED BLOOD COUNT 3.56 M/uL (4.2-5.4); WHITE BLOOD COUNT 3.18 K/uL (4.8-10.8)
[2017-04-09 23:59] LABS: DOHLE BODIES 1+; LARGE PLATELETS 1+
[2017-04-10 00:03] LABS: COMPLETE YES; EOSINOPHIL % 3.5 %; LYMPH ABS # 2.52 K/uL (1.2-3.4); LYMPHOCYTE % 79.1 %; META ABS # 0.05 K/uL (0-0); METAMYELOCYTE % 1.7 %; NEUTROPHILS % 7.8 %
--- NOTE | 2017-04-10 02:29 | EMERGENCY ROOM VISIT NOTE ---
History Report prepared by Scribe: Jude Zamorano Under the Supervision of: Dr. Jim Kidd D.O. First contact with patient: 22:45 Chief Complaint: RESPIRATORY DISTRESS Stated Complaint: SOB, L ARM PAIN History of Present Illness The patient is a 62 year old female who presents to the Emergency Room with complaints of constant respiratory distress beginning shortly prior to arrival. She has a history of lung cancer. She is currently receiving chemotherapy and states that her most recent treatment was about two weeks ago. Per EMS, the patient called EMS due to having bilateral arm pain, and was having significant difficulty breathing on scene. They state that her blood pressure was 75/50 initially, but has increased to 100/50 now. They state that her oxygen saturation was 95 on scene. EMS notes that the patient appears to be wheezing. The patient states that she was unable to move her arm when the pain occurred. She was given two DuoNebs and Solu-Medrol en route which has improved her symptoms. Source of History: patient Onset: shortly prior to arrival Quality: other (respiratory distress) Timing: constant Modifying Factors (Relieving): other (DuoNebs, Solu-Medrol) Note: The patient also complains of bilateral arm pain. She was hypotensive on scene. Review of Systems See HPI for pertinent positives and negatives. A total of ten systems were reviewed and were otherwise negative. Past Medical & Surgical Medical Problems: (1) Chemotherapy induced nausea and vomiting (2) Diabetes (3) Emphysema lung (4) GERD (gastroesophageal reflux disease) (5) HTN (hypertension) (6) Hypertension (7) Hyponatremia (8) Hypotension (9) Lung mass (10) Paroxysmal atrial fibrillation (11) Pulmonary nodule, left (12) Tobacco abuse Family History Diabetes mellitus SISTER FHx: arthritis SISTER FHx: coronary artery disease MOTHER SISTER Hypertension SISTER Social History Smoking Status: Former Smoker Drug Use: none Marital Status: Occupation Status: unemployed Current/Historical Medications Scheduled Aspirin (Aspirin Ec), 81 MG PO AFTERNOON Atorvastatin (Lipitor), 10 MG PO HS Budesonide/Formoterol Fumarate (Symbicort 160/4.5 Inhaler), 2 PUFFS INH BID Duloxetine Hcl (Cymbalta), 40 MG PO QAM Flecainide Acetate (Tambocor), 50 MG PO TID Fluticasone Propionate (Nasal) (Flonase Allergy Relief), 1 SPRAY NA DAILY Metoprolol Succinate (Toprol Xl), 100 MG PO TID Montelukast Sodium (Singulair), 10 MG PO HS Omeprazole (Prilosec), 20 MG PO BID Potassium Chloride (Micro-K Ext Rel), 10 MEQ PO 5XD Tramadol Hcl (Ultram), 100 MG PO TID Umeclidinium [place] (Incruse Ellipta), 1 PUFF INH QAM Scheduled PRN Albuterol Sulfate (Proair Respiclick), 2 PUFFS PO QID PRN for Shortness of Breath Dronabinol (Marinol), 5 MG PO DAILY PRN for Nausea Prochlorperazine Maleate (Compazine), 10 MG PO Q6H PRN for Nausea or Vomiting Allergies Coded Allergies: Diltiazem (Verified Allergy, Severe, SHORTNESS OF BREATH AND SWELLING OF HANDS AND FACE, 04/09/17) Adhesives (Verified Allergy, Mild, BLISTERS, 04/09/17) Latex1 -Allergic Contact Dermititis (Verified Allergy, Mild, RASH, 04/09/17) Indomethacin (Unverified Allergy, Unknown, per pulm note , 04/09/17) Penicillins (Verified Allergy, Unknown, WELTS IN MOUTH AND SPREAD TO BODY , 04/09/17) Codeine (Verified Adverse Reaction, Mild, N&V&GI PAIN, 04/09/17) Paroxetine (Verified Adverse Reaction, Unknown, GI SYMPTOMS, 04/09/17) Varenicline (Verified Adverse Reaction, Unknown, GI SYMPTOMS, 04/09/17) Physical Exam Vital Signs Date Time Temp Pulse Resp B/P (MAP) Pulse Ox O2 Delivery O2 Flow Rate FiO2 04/10/17 02:11 78 04/10/17 01:50 78 18 101/41 100 04/10/17 01:32 121/75 04/10/17 01:20 80 16 111/56 100 04/10/17 00:45 79 18 131/76 99 2.0 04/10/17 00:18 86 20 148/71 100 4.0 04/10/17 00:03 82 18 143/93 100 04/09/17 23:41 91 18 143/76 100 04/09/17 23:11 90 15 92/71 100 04/09/17 23:02 93 04/09/17 22:58 100 Mask 6.0 04/09/17 22:58 100 Mask 6.0 04/09/17 22:58 37.1 93 24 92/71 100 Mask 6.0 04/09/17 22:54 100 Mask 6.0 Physical Exam GENERAL: Awake, alert, pale-appearing, in mild respiratory distress HENT: Normocephalic, atraumatic. Oropharynx unremarkable. EYES: Normal conjunctiva. Sclera non-icteric. NECK: Supple. No nuchal rigidity. FROM. No JVD. RESPIRATORY: Rhonchi bilaterally. CARDIAC: Tachycardic regular rate, normal rhythm. Extremities warm and well perfused. Pulses equal. ABDOMEN: Soft, non-distended. No tenderness to palpation. No rebound or guarding. No masses. RECTAL: Deferred. MUSCULOSKELETAL: Chest examination reveals no tenderness. The back is symmetrical on inspection without obvious abnormality. There is no CVA tenderness to palpation. No joint edema. Currently in carpopedal spasm in the upper extremities bilaterally LOWER EXTREMITIES: Calves are equal size bilaterally and non-tender. No edema. No discoloration. NEURO: Normal sensorium. No sensory or motor deficits noted. SKIN: No rash or jaundice noted. PSYCH: Anxious. Medical Decision & Procedures ER Provider Diagnostic Interpretation: CT results per statrad and my review. CTA CHEST: No evidence of filling defect to suggest pulmonary embolism. Thoracic aorta and visualized great vessels appear within limits. No pericardial effusion. Interval left lower lobectomy with small pleural fluid. Pulmonary emphysema. Lobular anterior mediastinal soft tissue mass not significant charged in size. One View Chest X-ray interpreted by me: slight increased marking in the left lower lobe. Laboratory Results 04/09/17 23:10 Red Blood Count 3.56, Mean Corpuscular Volume 86.5, Mean Corpuscular Hemoglobin 29.2, Mean Corpuscular Hemoglobin Concent 33.8, Mean Platelet Volume 9.8 04/09/17 23:10 Test 04/09/17 23:10 04/09/17 23:14 White Blood Count 3.18 K/uL (4.8-10.8) Red Blood Count 3.56 M/uL (4.2-5.4) Hemoglobin 10.4 g/dL (12.0-16.0) Hematocrit 30.8 % (37-47) Mean Corpuscular Volume 86.5 fL (80-100) Mean Corpuscular Hemoglobin 29.2 pg (25-34) Mean Corpuscular Hemoglobin Concent 33.8 g/dl (32-36) Platelet Count 103 K/uL (130-400) Mean Platelet Volume 9.8 fL (7.4-10.4) RDW Standard Deviation 47.3 fL (36.4-46.3) RDW Coefficient of Variation 15.2 % (11.5-14.5) Nucleated RBC Absolute Count (auto) 0.11 K/uL (0-0) Neutrophils % (Manual) 7.8 % Lymphocytes % (Manual) 79.1 % Monocytes % (Manual) 7.0 % Eosinophils % (Manual) 3.5 % Metamyelocytes % 1.7 % Blast Cells % 0.9 % Nucleated Red Blood Cells % 3.3 % Neutrophils # (Manual) 0.25 K/uL (1.4-6.5) Total Absolute Neutrophils 0.25 K/uL (1.4-6.5) Lymphocytes # (Manual) 2.52 K/uL (1.2-3.4) Total Absolute Lymphocytes 2.52 K/uL (1.2-3.4) Monocytes # (Manual) 0.22 K/uL (0.11-0.59) Eosinophils # (Manual) 0.11 K/uL (0-0.5) Metamyelocytes # 0.05 K/uL (0-0) Blast Cells # 0.03 K/uL (0-0) Dohle Bodies 1+ Large Platelets 1+ Arterial Blood pH 7.48 (7.35-7.45) Arterial Blood Partial Pressure CO2 29 mmHg (35-46) Arterial Blood Partial Pressure O2 163 mm/Hg (80-95) Arterial Blood HCO3 21 mmol/L (19-24) Arterial Blood Oxygen Saturation 99.0 % (90-95) Arterial Blood Base Excess -2.0 mEq/L (-9-1.8) Arterial Blood Gas Delivery 4 L Lobo Test POS (POS) Anion Gap 14.0 mmol/L (3-11) Est Creatinine Clear Calc Drug Dose 53.7 ml/min Estimated GFR () 50.2 Estimated GFR (Non- 43.3 BUN/Creatinine Ratio 17.1 (10-20) Calcium Level 6.2 mg/dl (8.5-10.1) Total Bilirubin 0.4 mg/dl (0.2-1) Aspartate Amino Transf (AST/SGOT) 20 U/L (15-37) Alanine Aminotransferase (ALT/SGPT) 25 U/L (12-78) Alkaline Phosphatase 99 U/L (45-117) Total Protein 7.4 gm/dl (6.4-8.2) Albumin 2.9 gm/dl (3.4-5.0) Globulin 4.5 gm/dl (2.5-4.0) Albumin/Globulin Ratio 0.6 (0.9-2) Bedside Troponin I < 0.030 ng/ml (0-0.045) ZM-Rum-F-Type Natriuretic Peptide 529 pg/ml (0-900) Laboratory results reviewed by me Medications Administered Medications (Trade) Dose Ordered Sig/Armani Route Start Time Stop Time Status Last Admin Dose Admin Lorazepam (Ativan Inj) 2 mg STK-MED ONCE .ROUTE 04/09/17 22:56 04/09/17 22:57 DC 04/09/17 22:58 1 MG Miscellaneous Information (Nursing Verbal Med Order) 1 ea ONE ONCE N/A 04/09/17 22:57 04/09/17 23:03 DC 04/09/17 22:57 1 EA ECG Indication: SOB/dyspnea Rate (beats per minute): 92 Rhythm: normal sinus Findings: nonspecific-ST abn, other (Normal axis) ED Course 2240: The patient was evaluated in room B1. A complete history and physical exam was performed. Medical Decision Differential diagnosis: Etiologies such as infections, reactive airway disease, pneumonia, pneumothorax , COPD, CHF, cardiac ischemia, pulmonary embolism, musculoskeletal, gastrointestinal, as well as others were entertained. Patient on reexamination resting in no distress. Patient was having hyperventilation with carpal pedal spasm. Patient was given IV Ativan and improved greatly. Repeat examination the patient she is in no respiratory distress. I discussed the evaluation with the patient and the family at bedside. Patient had a CT chest that was negative for pulmonary embolism or any evidence of pneumonia or significant pleural effusion. Patient was offered admission she like to go home she understands evaluation was so far negative and will follow-up. Impression Primary Impression: Shortness of breath Additional Impression: Hyperventilation Scribe Attestation The scribe's documentation has been prepared under my direction and personally reviewed by me in its entirety. I confirm that the note above accurately reflects all work, treatment, procedures, and medical decision making performed by me. Departure Information Dispostion Home / Self-Care Referrals Ok Galo M.D. (PCP) Patient Instructions COPD - [facility], My [facility] Problem Qualifiers
[2017-04-10 02:35] VITALS: BP 131/83; PULSE 79; O2SAT 99
--- NOTE | 2017-04-10 07:42 | DIAGNOSTIC IMAGING REPORT ---
SINGLE VIEW CHEST CLINICAL HISTORY: Dyspnea. FINDINGS: An AP, portable, upright chest radiograph is compared to study performed 03/29/2017 and correlated with chest CT dated 11/27/2016. The examination is degraded by portable technique, large body habitus, and patient rotation. The heart is enlarged. The pulmonary vasculature is noncongested. Volume loss in the left lung is consistent with left-sided pulmonary resection. Emphysema and interstitial thickening are noted. There is pleural fluid identified at the left lung base. No airspace consolidation is seen typical for pneumonia and there is no right-sided pleural effusion. No pneumothorax is identified. The skeletal structures are osteopenic. The bony thorax is grossly intact. Cholecystectomy clips are noted. IMPRESSION: 1. Cardiomegaly and emphysema with postoperative change from left-sided pulmonary resection. 2. Pleural fluid and scarring are again seen at the left lung base, and are likely on a postoperative basis. 3. No acute abnormality is identified. Electronically signed by: Wilner Melo M.D. 04/10/2017 7:41 AM Dictated Date/Time: 04/10/2017 7:39 AM
--- NOTE | 2017-04-10 08:03 | DIAGNOSTIC IMAGING REPORT ---
CT ANGIOGRAM OF THE CHEST CLINICAL HISTORY: Dyspnea. COMPARISON STUDY: Chest x-ray dated 04/09/2017. Chest CT scans dated 11/27/2016 and 08/24/2015. TECHNIQUE: Following the IV administration of 95 cc of Optiray 320, CT angiogram of the chest was performed from the upper abdomen to the thoracic inlet utilizing the pulmonary embolus protocol. Images are reviewed in the axial, sagittal, and coronal planes. 3-D MIPS images are created and assessed. IV contrast was administered without complication. CT DOSE: 526.40 mGy.cm FINDINGS: Thyroid: Imaged portions of the thyroid gland are normal in size and attenuation. Thoracic aorta: The thoracic aorta is normal in caliber and demonstrates standard 3-vessel arch anatomy. No dissection is seen. Pulmonary vasculature: The pulmonary trunk is normal in caliber. There are no filling defects identified in main, lobar, or segmental pulmonary branches to suggest pulmonary embolus. Heart: The heart is mildly enlarged and without pericardial effusion. Lungs and pleural spaces: There is advanced emphysema and postoperative change from left lower lobe resection. Scarring and pleural fluid is identified at the left lung base, likely on a postoperative basis. No airspace consolidation is seen typical for pneumonia. There is no pleural effusion is identified on the right. Mediastinum: There is no mediastinal lymphadenopathy. A 3.9 x 2.3 cm soft tissue lesion in the anterior mediastinum is similar to prior studies. This contains calcifications and likely represents ectopic thyroid tissue. Corrie: Clear. Axillae: There is no axillary lymphadenopathy. Upper abdomen: There is a tiny hiatal hernia. Partially visualized upper abdominal viscera is otherwise within normal limits. Skeletal structures: The skeletal structures are osteopenic. Degenerative change is seen throughout the thoracic spine. No lytic or blastic bony lesions are seen. IMPRESSION: 1. There is no evidence of pulmonary embolus in the main, lobar, or segmental pulmonary arteries. 2. Emphysema and postoperative change from left lower lobe resection. 3. There is no airspace consolidation typical for pneumonia. 4. Trace fluid at the left lung base is likely on a postoperative basis. 5. Additional findings as above. Electronically signed by: Wilner Melo M.D. 04/10/2017 8:01 AM Dictated Date/Time: 04/10/2017 7:56 AM
== END 2017-04-10 02:50 | disposition home or self-care (01) ==
LOC: EDBD 22:41 → C.EDB 22:46
DX: R06.02 Shortness of breath (principal); R06.4 Hyperventilation; C34.90 Malignant neoplasm of unspecified part of unspecified bronchus or lung; E11.9 Type 2 diabetes mellitus without complications; K21.9 Gastro-esophageal reflux disease without esophagitis; I10 Essential (primary) hypertension; J43.9 Emphysema, unspecified; E87.1 Hypo-osmolality and hyponatremia; I48.0 Paroxysmal atrial fibrillation; Z87.891 Personal history of nicotine dependence; Z79.82 Long term (current) use of aspirin

== ENCOUNTER 2017-04-14 08:10 | Emergency (ER) | payer OTHER ==
[~2017-04-14] VITALS: Ht 167.6 cm; Wt 106.3 kg
[~2017-04-14 08:10] MED LIST changes: +ALBU18002 PO; -PROAIR INH
[2017-04-14 08:16] VITALS: TEMP 37.2; Ht 167.6 cm; Wt 106.3 kg
[2017-04-14] MEDS ORDERED: METOPROLOL SUCC 50MG EXT REL TAB PO STA (08:29)
[2017-04-14] MEDS ORDERED: FLECAINIDE ACETATE 100 MG TAB PO ONE (08:30)
--- NOTE | 2017-04-14 08:30 | EMERGENCY ROOM VISIT NOTE ---
History Report prepared by Rahel: Phuc Vincent Under the Supervision of: Dr. Guanakito Stephenson D.O. First contact with patient: 08:14 Chief Complaint: RESPIRATORY DISTRESS Stated Complaint: RESP. DISTRESS History of Present Illness The patient is a 62 year old female who presents to the Emergency Room with complaints of spontaneously resolved respiratory distress that began earlier this morning, a few hours prior to arrival, while the patient was sleeping. The patient states that she was asleep with her C-pap on when she woke up and was unable to catch her breath. Her condition was not improved by standing upright or laying down. The patient was given oxygen en route to the emergency department, which seemed to improve her condition. She states that she is not experiencing any respiratory distress at this time. She notes that she had one similar episode a few days ago. The patient does have a history of atrial fibrillation and takes Metoprolol daily. She was in the emergency department on the 8th of this month and received a CT of the chest. This imaging was unremarkable. Source of History: patient Onset: A few hours [employer] Position: chest (Respiratory ) Quality: other (SOB) Timing: resolved Associated Symptoms: No chest pain Review of Systems See HPI for pertinent positives & negatives. A total of 10 systems reviewed and were otherwise negative. Past Medical & Surgical Medical Problems: (1) Chemotherapy induced nausea and vomiting (2) Diabetes (3) Emphysema lung (4) GERD (gastroesophageal reflux disease) (5) HTN (hypertension) (6) Hypertension (7) Hyponatremia (8) Hypotension (9) Lung mass (10) Paroxysmal atrial fibrillation (11) Pulmonary nodule, left (12) Tobacco abuse Family History Diabetes mellitus SISTER FHx: arthritis SISTER FHx: coronary artery disease MOTHER SISTER Hypertension SISTER Social History Smoking Status: Former Smoker Drug Use: none Marital Status: Occupation Status: unemployed Current/Historical Medications Scheduled Aspirin (Aspirin Ec), 81 MG PO AFTERNOON Atorvastatin (Lipitor), 10 MG PO HS Budesonide/Formoterol Fumarate (Symbicort 160/4.5 Inhaler), 2 PUFFS INH BID Duloxetine Hcl (Cymbalta), 40 MG PO QAM Flecainide Acetate (Tambocor), 50 MG PO TID Fluticasone Propionate (Nasal) (Flonase Allergy Relief), 1 SPRAY NA DAILY Metoprolol Succinate (Toprol Xl), 100 MG PO TID Montelukast Sodium (Singulair), 10 MG PO HS Omeprazole (Prilosec), 20 MG PO BID Potassium Chloride (Micro-K Ext Rel), 10 MEQ PO 5XD Tramadol Hcl (Ultram), 100 MG PO TID Umeclidinium [place] (Incruse Ellipta), 1 PUFF INH QAM Scheduled PRN Albuterol Sulfate (Proair Respiclick), 2 PUFFS PO QID PRN for Shortness of Breath Dronabinol (Marinol), 5 MG PO DAILY PRN for Nausea Prochlorperazine Maleate (Compazine), 10 MG PO Q6H PRN for Nausea or Vomiting Allergies Coded Allergies: Diltiazem (Verified Allergy, Severe, SHORTNESS OF BREATH AND SWELLING OF HANDS AND FACE, 04/14/17) Adhesives (Verified Allergy, Mild, BLISTERS, 04/14/17) Latex1 -Allergic Contact Dermititis (Verified Allergy, Mild, RASH, 04/14/17 ) Indomethacin (Unverified Allergy, Unknown, per pulm note , 04/14/17) Penicillins (Verified Allergy, Unknown, WELTS IN MOUTH AND SPREAD TO BODY , 04/14/17) Codeine (Verified Adverse Reaction, Mild, N&V&GI PAIN, 04/14/17) Paroxetine (Verified Adverse Reaction, Unknown, GI SYMPTOMS, 04/14/17) Varenicline (Verified Adverse Reaction, Unknown, GI SYMPTOMS, 04/14/17) Physical Exam Vital Signs Date Time Temp Pulse Resp B/P (MAP) Pulse Ox O2 Delivery O2 Flow Rate FiO2 04/14/17 09:51 118 23 94 04/14/17 09:36 134 18 04/14/17 09:31 115/78 04/14/17 09:06 133 15 95 04/14/17 09:06 112 100 04/14/17 09:01 103/55 04/14/17 08:55 132 18 04/14/17 08:49 85/50 04/14/17 08:44 79/60 04/14/17 08:40 135 16 97 04/14/17 08:31 73/39 04/14/17 08:25 123 22 96 04/14/17 08:20 131 04/14/17 08:19 106/70 99 04/14/17 08:16 37.2 133 20 106/70 100 Nasal Cannula 2.0 04/14/17 08:16 100 Nasal Cannula 2.0 04/14/17 08:15 80/60 Physical Exam CONSTITUTIONAL/VITAL SIGNS: Reviewed / noted above. GENERAL: Non-toxic in appearance. INTEGUMENTARY: Warm, dry, and [place]. HEAD: Normocephalic. EYES: without scleral icterus or trauma. ENT/OROPHARYNX: clear and moist. LYMPHADENOPATHY/NECK: Is supple without lymphadenopathy or meningismus. RESPIRATORY: Lungs clear and equal. CARDIOVASCULAR: Irregular rate and rapid rhythm. GI/ABDOMEN: Soft and nontender. No organomegaly or pulsatile mass. No rebound or guarding. Normal bowel sounds. EXTREMITIES: Warm and well perfused. BACK: No CVA tenderness. NEUROLOGICAL: Intact without focal deficits. PSYCHIATRIC: normal affect. MUSCULOSKELETAL: Normally developed with good muscle tone. Medical Decision & Procedures ER Provider Diagnostic Interpretation: Radiology results as stated below per my review and radiologist interpretation: CHEST ONE VIEW PORTABLE CLINICAL HISTORY: sob resolved dyspnea COMPARISON STUDY: 04/09/2017 FINDINGS: Stable postoperative change left perihilar and basilar region at trace pleural fluid left base unchanged. No new or interval findings. Right lung is clear. IMPRESSION: Stable postoperative changes left hemithorax. Unchanging small left effusion. Electronically signed by: Bryan Johnson M.D. 04/14/2017 8:51 AM Dictated Date/Time: 04/14/2017 8:50 AM Laboratory Results Test 04/14/17 08:45 04/14/17 08:49 Bedside Troponin I < 0.030 ng/ml (0-0.045) Bedside Hemoglobin 11.2 g/dl (12.0-16.0) Bedside Hematocrit 33 % (37-47) Bedside Sodium 139 mEq/L (135-144) Bedside Potassium 4.4 mEq/L (3.3-5.0) Bedside Chloride 97 mEq/L (101-112) Bedside Total CO2 27 mEq/l (24-31) Anion Gap 21.0 mmol/L (16-25) Bedside Blood Urea Nitrogen 11 mg/dl (7-18) Bedside Creatinine 1.1 mg/dl (0.6-1.3) Bedside Glucose (other) 122 mg/dl (70-99) Bedside Ionized Calcium (Lizeth) 0.82 mmol/l (1.12-1.32) Medications Administered Medications (Trade) Dose Ordered Sig/Armani Route Start Time Stop Time Status Last Admin Dose Admin Flecainide Acetate (Tambocor Tab) 50 mg ONE ONCE PO 04/14/17 08:30 04/14/17 08:31 DC 04/14/17 08:52 50 MG Metoprolol Succinate (Toprol Xl Tab) 100 mg NOW STAT PO 04/14/17 08:29 04/14/17 08:31 DC 04/14/17 08:53 100 MG Sodium Chloride 500 ml @ 999 mls/hr Q31M STAT IV 04/14/17 08:46 04/14/17 09:16 DC 04/14/17 08:53 999 MLS/HR ECG Indication: SOB/dyspnea Rate (beats per minute): 133 Rhythm: atrial fibrillation Findings: no acute ischemic change, no ectopy ED Course 0824: Previous medical records were reviewed. The patient was evaluated in room B6. A complete history and physical examination was performed. 0829: Ordered Metoprolol 100 mg PO. 0830: Ordered Flecainide Acetate 50 mg PO. 0846: Ordered Sodium Chloride 500 mL @ 999 mL/hr IV. Medical Decision Blood pressure Screening: Patient was found to have normal blood pressure on screening and does not require follow-up. Differential diagnosis: Etiologies such as infections, reactive airway disease, pneumonia, pneumothorax , COPD, CHF, cardiac ischemia, pulmonary embolism, musculoskeletal, gastrointestinal, as well as others were entertained. This is a 62-year-old female who presents to the ED with a chief complaint of shortness of breath. The patient states that she uses CPAP at night. She states that she developed shortness of breath overnight and did not feel she can get enough air this morning. EMS brought the patient here. They provided oxygen. She states that she is feeling much better now. Her initial EKG shows A. fib at a rate of 133. The patient states that she has not yet taken her flecainide or metoprolol this morning. She is not having any symptoms at this time. She reports a history of A. fib. Her exam was unremarkable other than the irregular tachycardic heart rate. Her hemoglobin is 11 PRP was unremarkable. Troponin is negative. In the chest x-ray did not show acute disease. The patient was hydrated with some IV fluids because her blood pressure was slightly low. Repeat vital signs reveal improvement of her vital signs. She was given her morning flecainide and metoprolol. The patient continues to be asymptomatic. She is felt to be stable for discharge. The patient feels that her symptoms are related to her CPAP machine. She will talk to Dr. Pacheco about her CPAP. Impression Primary Impression: Shortness of breath Scribe Attestation The scribe's documentation has been prepared under my direction and personally reviewed by me in its entirety. I confirm that the note above accurately reflects all work, treatment, procedures, and medical decision making performed by me. Departure Information Dispostion Home / Self-Care Referrals Ok Galo M.D. (PCP) Patient Instructions Asthma - [facility], COPD - [facility], Croup - [facility], [facility] Additional Instructions Follow-up with your doctor for further care and evaluation in 1-2 days. Return to the emergency department for worsening or new symptoms or any concerns. You have been examined and treated today on an emergency basis only. This is not a substitute for, or an effort to provide, complete comprehensive medical care. It is impossible to recognize and treat all injuries or illnesses in a single emergency department visit. It is therefore important that you follow up closely with your doctor. Call as soon as possible for an appointment. Talk to Dr. Pacheco about your CPAP machine.
[2017-04-14] MEDS ORDERED: SODIUM CHLORIDE 0.9% 500ML 500 ML IV STA (08:46)
--- NOTE | 2017-04-14 08:53 | DIAGNOSTIC IMAGING REPORT ---
CHEST ONE VIEW PORTABLE CLINICAL HISTORY: sob resolved dyspnea COMPARISON STUDY: 04/09/2017 FINDINGS: Stable postoperative change left perihilar and basilar region at trace pleural fluid left base unchanged. No new or interval findings. Right lung is clear. IMPRESSION: Stable postoperative changes left hemithorax. Unchanging small left effusion. Electronically signed by: Bryan Johnson M.D. 04/14/2017 8:51 AM Dictated Date/Time: 04/14/2017 8:50 AM
[2017-04-14 09:09] LABS: ISTAT CREATININE 1.1 mg/dl (0.6-1.3); ISTAT HEMOGLOBIN 11.2 g/dl (12.0-16.0); ISTAT IONIZED CALCIUM 0.82 mmol/l (1.12-1.32)
[2017-04-14 10:49] VITALS: BP 101/78; O2SAT 100
[2017-04-14 10:53] VITALS: PULSE 120
== END 2017-04-14 10:59 | disposition home or self-care (01) ==
LOC: EDBD 08:10 → C.EDB 08:12
DX: R06.02 Shortness of breath (principal); E11.9 Type 2 diabetes mellitus without complications; I10 Essential (primary) hypertension; I48.91 Unspecified atrial fibrillation; J43.9 Emphysema, unspecified; K21.9 Gastro-esophageal reflux disease without esophagitis; Z87.891 Personal history of nicotine dependence; Z79.82 Long term (current) use of aspirin; Z79.899 Other long term (current) drug therapy; Z88.0 Allergy status to penicillin; Z88.5 Allergy status to narcotic agent; Z88.8 Allergy status to other drugs, medicaments and biological substances; Z91.09 Other allergy status, other than to drugs and biological substances; Z83.3 Family history of diabetes mellitus; Z82.49 Family history of ischemic heart disease and other diseases of the circulatory system

== ENCOUNTER → 2017-04-22 | Outpatient (CLI) | payer OTHER ==
[2017-04-22 18:01] LABS: BLOOD UREA NITROGEN 23 mg/dl (7-18); BUN/CREATININE RATIO 13.6 (10-20); CALCIUM 9.4 mg/dl (8.5-10.1); CARBON DIOXIDE 28 mmol/L (21-32); CHLORIDE 99 mmol/L (98-107); GLUCOSE 99 mg/dl (70-99); POTASSIUM 5.2 mmol/L (3.5-5.1); SODIUM 135 mmol/L (136-145)
== END | disposition home or self-care (01) ==
LOC: C.LABPBG 12:27
PROVIDERS: ATTEND Internal Medicine
DX: I48.0 Paroxysmal atrial fibrillation (principal)

== ENCOUNTER → 2017-04-23 | Outpatient (CLI) | payer OTHER ==
[2017-04-23 18:29] LABS: BLOOD UREA NITROGEN 21 mg/dl (7-18); BUN/CREATININE RATIO 12.8 (10-20); CARBON DIOXIDE 28 mmol/L (21-32); CHLORIDE 99 mmol/L (98-107); CHOLESTEROL 194 mg/dl (0-200); GLUCOSE 101 mg/dl (70-99); POTASSIUM 5.2 mmol/L (3.5-5.1); SODIUM 137 mmol/L (136-145); TRIGLYCERIDES 185 mg/dl (0-150); VERY LOW DENSITY LIPOPROT CALC 37 mg/dl
[2017-04-23 18:32] LABS: CHOLESTEROL/HDL RATIO 3.8; HDL CHOLESTEROL 51 mg/dl; LDL CHOLESTEROL CALCULATED 106 mg/dl
== END ==
LOC: C.LABBFT 12:15
PROVIDERS: ATTEND Internal Medicine
DX: N28.9 Disorder of kidney and ureter, unspecified (principal); E78.00 Pure hypercholesterolemia, unspecified

== ENCOUNTER → 2017-04-30 | Outpatient (CLI) | payer OTHER ==
[~2017-04-30] MED LIST changes: -ATOR10TA82 PO; +ATOR10TA88 PO
[2017-04-30 18:00] LABS: BLOOD UREA NITROGEN 19 mg/dl (7-18); BUN/CREATININE RATIO 19.9 (10-20); CARBON DIOXIDE 32 mmol/L (21-32); CHLORIDE 101 mmol/L (98-107); CREATININE 0.96 mg/dl (0.60-1.20); GLUCOSE 97 mg/dl (70-99); POTASSIUM 3.3 mmol/L (3.5-5.1); SODIUM 139 mmol/L (136-145)
== END | disposition home or self-care (01) ==
LOC: C.LABPBG 12:27
PROVIDERS: ATTEND Internal Medicine
DX: I48.0 Paroxysmal atrial fibrillation (principal)

== ENCOUNTER → 2017-05-13 | Outpatient (CLI) | payer OTHER ==
[2017-05-13 16:37] LABS: MANUAL MICROSCOPIC REQUIRED? NO; REVIEW REQ? NO; URINE APPEARANCE CLEAR (CLEAR); URINE BILIRUBIN NEG (NEG); URINE COLOR YELLOW; URINE NITRITE NEG (NEG); URINE SPECIFIC GRAVITY 1.014 (1.000-1.030); UROBILINOGEN NEG (NEG); ZZUR CULT IF INDIC CLEAN CATCH NO
[2017-05-13 16:50] LABS: URINE PROTIEN/CREAT RATIO 0.2 (0-0.2)
[2017-05-13 17:01] LABS: BLOOD UREA NITROGEN 23 mg/dl (7-18); BUN/CREATININE RATIO 17.3 (10-20); CALCIUM 9.4 mg/dl (8.5-10.1); CARBON DIOXIDE 33 mmol/L (21-32); CHLORIDE 102 mmol/L (98-107); GLUCOSE 94 mg/dl (70-99); MAGNESIUM 1.8 mg/dl (1.8-2.4); POTASSIUM 3.2 mmol/L (3.5-5.1); SODIUM 142 mmol/L (136-145)
== END | disposition home or self-care (01) ==
LOC: C.LAB1850 15:24
PROVIDERS: ATTEND Internal Medicine Nephrology
DX: I48.0 Paroxysmal atrial fibrillation (principal); E87.5 Hyperkalemia

== ENCOUNTER → 2017-05-28 | Outpatient (CLI) | payer OTHER ==
[2017-05-28 18:05] LABS: BLOOD UREA NITROGEN 38 mg/dl (7-18); BUN/CREATININE RATIO 26.9 (10-20); CALCIUM 9.6 mg/dl (8.5-10.1); CARBON DIOXIDE 28 mmol/L (21-32); CHLORIDE 97 mmol/L (98-107); GLUCOSE 95 mg/dl (70-99); MAGNESIUM 1.9 mg/dl (1.8-2.4); POTASSIUM 4.2 mmol/L (3.5-5.1); SODIUM 135 mmol/L (136-145)
== END | disposition home or self-care (01) ==
LOC: C.LABBFT 11:32
PROVIDERS: ATTEND Internal Medicine Nephrology
DX: E87.6 Hypokalemia (principal)

== ENCOUNTER → 2017-07-13 | Outpatient (CLI) | payer OTHER ==
[~2017-07-13] MED LIST changes: +OPTIRAY 320 IV PRN
[2017-07-13 11:59] LABS: ALT/SGPT 26 U/L (12-78); BLOOD UREA NITROGEN 39 mg/dl (7-18); BUN/CREATININE RATIO 26.3 (10-20); CALCIUM 9.4 mg/dl (8.5-10.1); CARBON DIOXIDE 33 mmol/L (21-32); CHLORIDE 97 mmol/L (98-107); GLUCOSE 85 mg/dl (70-99); POTASSIUM 4.2 mmol/L (3.5-5.1); SODIUM 136 mmol/L (136-145)
[2017-07-13 12:01] LABS: ALB/GLOB RATIO 0.7 (0.9-2); ALKALINE PHOSPHATASE 128 U/L (45-117); AST/SGOT 22 U/L (15-37)
[2017-07-13 12:15] LABS: BASO ABS # 0.09 K/uL (0-0.2); COMPLETE YES; EOS % 2.1 %; IG% 1.5 %; LYMPH % 24.5 %; LYMPH ABS # 2.17 K/uL (1.2-3.4); MEAN CELL VOLUME 93.6 fL (80-100); MEAN CORPUSCULAR HGB CONC 33.2 g/dl (32-36); MEAN PLATELET VOLUME 9.1 fL (7.4-10.4); MONO % 6.3 %; NEUT % 64.6 %; PLATELET COUNT 317 K/uL (130-400); RED BLOOD COUNT 4.06 M/uL (4.2-5.4); WHITE BLOOD COUNT 8.84 K/uL (4.8-10.8)
--- NOTE | 2017-07-13 12:31 | DIAGNOSTIC IMAGING REPORT ---
CT OF THE CHEST WITH IV CONTRAST CLINICAL HISTORY: LUNG CA, C34.32 COMPARISON STUDY: 04/10/2017 TECHNIQUE: Following the IV administration of 94 mL of Optiray-320, CT of the thorax was performed from the thoracic inlet to the lung bases. Images are reviewed in the axial, sagittal, and coronal planes. IV contrast was administered without complication. A dose lowering technique was utilized adhering to the principles of ALARA. CT DOSE: 766.64 mGy.cm FINDINGS: Thyroid: There is a 6 mm left lobe thyroid nodule Thoracic aorta: The thoracic aorta is normal in course and caliber, noting standard 3-vessel arch anatomy. No aneurysm or dissection is seen. Pulmonary vasculature: The pulmonary trunk is normal in caliber. There are no central filling defects identified to suggest pulmonary embolus. Note that this examination was not protocoled for the evaluation of pulmonary emboli. HEART: The heart is normal in size and configuration, without pericardial effusion. Lungs and pleural spaces: There is underlying pulmonary emphysema. There are postsurgical changes of a left lower lobectomy. There is a small chronic left pleural effusion. There is no focal pulmonary consolidation. There are no suspicious for nodules. Mediastinum: There is very minimal increase in the size of the 42 mm anterior mediastinal mass. This measured 39 mm in August 2015. There is a stable 1 cm right paratracheal lymph node. Corrie: There is no evidence of pathologic hilar adenopathy Axilla: There is no evidence of pathologic axillary lymphadenopathy Upper abdomen: There are multiple renal cysts measuring up to 15 mm in diameter Skeletal structures: There are no lytic or blastic osseous lesions. IMPRESSION: 1. Emphysema 2. Postsurgical changes of a prior left lower lobe resection 3. No evidence of focal pulmonary consolidation. No suspicious pulmonary masses. 4. Very minimal increase in the size of a 42 mm anterior mediastinal mass. This measured 39 mm in August 2015. The very slow growth and previously identified negative PET activity, favoring a benign lesion. Electronically signed by: Torres Li M.D. 07/13/2017 12:30 PM Dictated Date/Time: 07/13/2017 12:22 PM
== END | disposition home or self-care (01) ==
LOC: C.CTS 10:51
PROVIDERS: ATTEND Internal Medicine Hematology & Oncology
DX: C34.32 Malignant neoplasm of lower lobe, left bronchus or lung (principal); J43.9 Emphysema, unspecified

== ENCOUNTER → 2017-08-17 | Outpatient (CLI) | payer OTHER ==
[~2017-08-17] MED LIST changes: -OPTIRAY 320 IV PRN
[2017-08-17 17:20] LABS: BLOOD UREA NITROGEN 27 mg/dl (7-18); BUN/CREATININE RATIO 22.2 (10-20); CALCIUM 9.4 mg/dl (8.5-10.1); CARBON DIOXIDE 32 mmol/L (21-32); CHLORIDE 98 mmol/L (98-107); CREATININE 1.22 mg/dl (0.60-1.20); GLUCOSE 82 mg/dl (70-99); MAGNESIUM 2.1 mg/dl (1.8-2.4); PHOSPHORUS 2.9 mg/dl (2.5-4.9); POTASSIUM 3.8 mmol/L (3.5-5.1); SODIUM 137 mmol/L (136-145)
== END | disposition home or self-care (01) ==
LOC: C.LAB1850 15:15
PROVIDERS: ATTEND Internal Medicine Nephrology
DX: N18.3 Chronic kidney disease, stage 3 (moderate) (principal)

== ENCOUNTER → 2017-08-25 | Outpatient (CLI) | payer OTHER ==
[~2017-08-25] MED LIST changes: +ATOR10TA82 PO; -ATOR10TA88 PO
--- NOTE | 2017-08-26 06:29 | PAP/PSG TECHNICIAN REPORT ---
[facility] Animal Sticker Polysomnogram Report Study name: None Report date: 08/26/2017 Study date: 08/25/2017 Referring Physician: Dr. Deuce Barillas DO Name: JONATHAN BOYLE Interpreting Physician: Deuce Barillas D.O. Date of : 1955 Animal Sticker: Marifer Mi RPS. Sex: Female Age: 62 Study Type: PSG PAP Weight: 241 lbs Height: 62 years, Height 5' 6" BMI: 38.89 Medications: ASPIRIN 81 MG, ATORVASTATIN 10 MG, DULOXETINE 20 MG, EXCEDRIN, FLECAINIDE ACETATE 50 MG, FLONASE, FUROSEMIDE 80 MG, INCRUSE ELLIPTA 62.5 MCG.INH, LORATIDINE, METOPROLOL 100 MG, MONTELUKAST 10 MG, NICODERM CQ, OMEPRAZOLE 20 MG, POTASSIUM CHLORIDE 20 MEQ, SPIRONOLACTONE 50 MG, STOOL SOFTENER, SYMBICORT, TRAMADOL 50 MG, VENTOLIN HFA, VIT D3 1000 UNIT, XARELTO 20 MG Patient History 62 yr-old female here for a CPAP update study. She is currently on a pressure 12 CMH2O. She has not been able to use CPAP since April 2017. She had lower left lung lobectomy in December 2016. She then felt as though she were awakening short of breath and breathing heavily. She is back to asses her CPAP pressure. Her [place] scale is 10. The test was started on room air and 4 CMH2O. ETCO2 testing was not utilized during this study. Room 3 Parameters Monitored NPSG: E1-M2, E2-M1, Fp1-M2, Fp2-M1, F3-M2, F4-M2, F4-M1, C3-M2, C4-M2, C4-M1, O1-M2, O2-M2, O2-M1, T3-M2, T4-M1, P3-M2, P4-M1, CHIN1, CHIN2, HR, EKG, Legs, PFLOW, SNOR, FLOW, CFLOW, Tidal Volume, THOR, ABDO, SpO2, PLTH, CPRESS, ETCO2 Wave, ETCO2, pH Sleep Architecture Sleep Stages Time at Lights Off 10:37:27 PM STAGES Time (min.) TST (%) Time at Lights On 5:28:57 AM Wake 154.5 -- Total Recording Time (TRT) 411.50 min. N1 54.5 21 Total Sleep Period (TSP) 348.5 min. N2 151.0 59 Total Sleep Time (TST) 257.0min. N3 25.5 10 Awake Time 154.5 min. REM 26.0 10 Wake after Sleep Onset 91.5 min. Sleep Efficiency (SE) 62 % Sleep Onset Latency (ELIO) 63.0 min. Number of Stage 1 Shifts None Awakenings 22 Stage Changes 102 Number of REM periods 1 REM 26.0 10 REM Latency 303.5 min. NREM 231.0 90 Body Position Analysis Supine Right Left Side Prone Vertical Total Sleep Time (min.) 25.3 235.0 22.0 257.00 0.0 0.0 Total Sleep Time (%) 0% 91% 9% 100 0% N/A% Total Sleep Time REM (min.) 0.0 26.0 0.0 None 0.0 0.0 Total Sleep Time NREM (min.) 0.0 209.0 22.0 None 0.0 0.0 Intermittent Wake (min.) 25.3 73.4 55.8 None 0.0 0.0 Total Sleep Period (%) 0% None None None None None Arousals Myoclonus (PLM) * Events Count Index Events Count Index Spontaneous 69 16 Events Awake (PLMW) 50 19.4 Respiratory 15 4.2 Events Asleep w/ Arousal (PLMA) 17 4.0 PLM 16 4 Events Asleep w/o Arousal (PLMS) 162 37.8 Snoring 8 2 Total Asleep 179 41.8 Total 108 25 Total 229 33 Respiratory Analysis * CA OA MA CH H RERA Total Count 0 2 0 0 40 5 42 Index 0.0 0.5 0.0 0 9.3 1 11.0 Mean Duration 0.0 21.2 0.0 0.00 18.5 18.5 18.6 Longest Duration 0.0 24.2 0.0 0.00 0.0 23.7 24.4 Respiratory Event Summary Total Supine ~Supine Right Left Prone REM NREM Apneas Count 2 N/A 2 2 0 N/A 1 1 Index 0.5 N/A 0 0.5 0.0 N/A 2 0 Hypopneas (4% Desat) Count 40 N/A 40 40 0 N/A 4 36 Index 9.3 N/A 9 10.2 0.0 N/A 9.2 9.4 Apneas & All Hypopneas Count 42 N/A 42 42 0 N/A 5 37 Index 9.8 N/A 10 11 0 N/A 11.5 9.6 Respiratory Events (Sales Officer+All Hyp+RERA) Count 42 N/A 47 45 2 N/A 5 37 Index 11.0 N/A 11 11.5 5.5 N/A 11.5 10.9 Respiratory Related Arousal Count 15 N/A 18 16 2 N/A 1 17 Index 4.2 N/A 4 4 5 N/A 2 4 Snoring Analysis Supine Right Left Prone REM NREM Total Snore duration 6.1 min Snores count N/A 302 24 N/A 44 282 326 Snore mean duration 1.1 Sec Snores index N/A 77 65 N/A 101.5 73.2 76.1 TST with snoring (%) 2.4% Desaturation Event Summary: Minimum %SpO2 Event Count Mean/Min/Max Duration(sec.) Desaturation Index % Time In Bed > 90 71 23.3 / 8.0 / 56.3 16.6 63.3 86 - 90 49 21.2 / 7.8 / 56.3 20.0 36.3 81 - 85 0 N/A 0.0 0.3 76 - 80 0 N/A 0.0 0.0 71 - 75 0 N/A 0.0 0.0 66 - 70 0 N/A 0.0 0.0 61 - 65 0 N/A 0.0 0.0 56 - 60 0 N/A 0.0 0.0 51 - 55 0 N/A 0.0 0.0 < 50 0 N/A 0.0 0.0 Total REM NREM Awake <50% 0.0 min. 0.0 min. 0.0 min. 0.0 min. 51 - 60% 0.0 min. 0.0 min. 0.0 min. 0.0 min. 61 - 70% 0.0 min. 0.0 min. 0.0 min. 0.0 min. 71 - 80% 0.2 min. 0.0 min. 0.0 min. 0.2 min. 81 - 90% 148.1 min. 7.8 min. 124.0 min. 16.3 min. 91 - 100% 256.1 min. 18.2 min. 107.0 min. 130.9 min. Average 92 92 90 94 Minimum SpO2 79 84 84 79 Desaturation Event Index 11.4 16.2 15.8 5.0 # Desat. Events below 89% 63 6 51 6 Time(%) with Saturation below 89% 8.6 0.7 6.7 1.2 Time(min.) with Saturation below 89% 34.9 2.8 27.2 4.8 Time (mins) REM (mins) NREM (mins) % of TST SpO2 Below 90% 64 6 N58 28.3 SpO2 Below 88% 20 0 0 4 Heart Rate Analysis Min (bpm) Max (bpm) Average (bpm) Awake 55 127 64 NREM 55 78 67 REM 63 76 68 Overall 55 78 67 Supplemental O2 Values Minimum O2 level: None Value Start Time End Time Animal Sticker Comments Ms. Boyle slept in the right and left positions. Cardiac arrhythmias were noted. PLMs were noted. No bruxism noted. CPAP was initiated at +4 CMH2O and up-titrated to a level of +10 CMH2O, Cflex 2. After she had been on a pressure of 8 CMH2O for over 2 hours, her AHI was lower than 10 and he O2 saturations were under 89% for 8.1 minutes. One LPM of O2 was added. After her first REM period, the pressure was increased for events in REM so the O2 was then turned off due to 8 CMH2O no longer being the optimal pressure setting. An AirFit F10 full face mask size medium from [employer] was used during titration. She awoke to use the restroom one time during the night. Ms. Boyle stated that she slept a little better than usual The final report will be interpreted and signed by a sleep physician. The completed physician report will then be placed in the patient medical record. Therapy Event: Therapy (cm H20) 4 6 8 10 Total Time at Pressure (min.) 98.2 77.1 205.1 31.1 TST at Pressure (min.) 24.7 70.6 135.1 26.6 # Periods 1 1 1 1 Sleep Onset (min.) 63.0 0.0 0.0 0.0 REM Onset (min.) N/A N/A 191.2 0.0 Sleep Efficiency % 25 91 65 85 Wakefulness (%) 74.8 8.4 34.1 14.5 Wakefulness (min.) 73.5 6.5 70.0 4.5 NREM 1 (%) 11.2 20.1 9.5 27.3 NREM 1 (min.) 11.0 15.5 19.5 8.5 NREM 2 (%) 14.0 70.8 37.4 19.3 NREM 2 (min.) 13.7 54.6 76.7 6.0 NREM 3 (%) 0.0 0.6 12.2 0.0 NREM 3 (min.) 0.0 0.5 25.0 0.0 REM (%) 0.0 0.0 6.8 39.0 REM (min.) 0.0 0.0 13.9 12.1 # Arousals 10 42 40 16 Arousal Index 24.3 35.7 17.8 36.1 # Snore 20 85 217 4 Snore Index 48.5 72.2 96.4 9.0 AHI 9.7 25.5 3.1 2.3 AHI Supine N/A N/A N/A N/A AHI Non-Supine 9.7 25.5 3.1 2.3 NREM AHI 9.7 25.5 1.5 0.0 REM AHI N/A N/A 17.3 4.9 RDI 9.7 26.3 4.9 2.3 # Obstructive 0 1 0 1 # Central Ap 0 0 0 0 # Mixed 0 0 0 0 # Hypopneas 4 29 7 0 RERAS 0 1 4 0 Total Respiratory Events 4 31 11 1 Time Below SpO2 89.00% (min.) 4.5 13.4 11.6 0.6 Mean NREM SpO2 (%) 90 90 90 94 Mean REM SpO2 (%) N/A N/A 91 93 Mean Sleep SpO2 (%) 90 90 90 93 Min NREM SpO2 (%) 85 84 86 92 Min REM SpO2 (%) N/A N/A 84 84 Position Supine (min.) 0.0 0.0 0.0 0.0 Position Non-supine (min.) 24.7 70.6 135.1 26.6 LM Index Sleep 53.4 46.7 40.0 27.0 LM Index NREM 53.4 46.7 41.1 29.0 LM Index REM N/A N/A 30.3 24.7 Mean Heart Rate (bpm) 66 68 66 66 Min Heart Rate (bpm) 58 59 55 58 CPAP REPORT Therapy Detail Time / Page # Comment CPAP 4 cm H2O Full Face Mask Flex Pressure Relief Humidifier on 10:34:58 PM / pg. 159 CPAP 6 cm H2O Full Face Mask Flex Pressure Relief Humidifier on 12:15:41 AM / pg. 360 INCREASED FOR SOME HYPOPNEAS CPAP 8 cm H2O Full Face Mask Flex Pressure Relief Humidifier on 1:32:46 AM / pg. 514 INCREASED FOR MORE HYPOPNEAS CPAP 8 cm H2O Full Face Mask Flex Pressure Relief Humidifier on Oxygen 1.0 lpm 4:16:51 AM / pg. 842 ADDING 1 LPM OF O2. SHE HAS BEEN ON A PRESSURE 8 CMH2O FOR OVER 2 HOURS AND HER AHI IS LESS THAN 10. HER O2 SATS WERE UNDER 89% FOR 8.1 MIN CPAP 10 cm H2O Full Face Mask Flex Pressure Relief Humidifier on Oxygen 1.0 lpm 4:57:50 AM / pg. 924 INCREASED FOR HYPOPNEAS IN REM CPAP 10 cm H2O Full Face Mask Flex Pressure Relief Humidifier on 4:57:51 AM / pg. 924 DUE TO PRESSURE INCREASE, O2 TURNED OFF
--- NOTE | 2017-08-30 10:20 | Sleep Study ---
Sleep Study Report Date of Service: 08/25/2017 Sleep Study Report Clinical data: The patient is a 62-year-old female with a history of sleep apnea for about 10 years. She had been on nasal CPAP therapy until April of this year. At that time she had 2 separate episodes of waking up with shortness of breath at nighttime. She has been reluctant to wear her CPAP since then. [facility] study. Her [place] Sleepiness Scale score is 10 out of a possible 24. Her BMI is elevated at 38.9. Sleep architecture: The total sleep period was 348.5 minutes. The total sleep time was 257 minutes. The sleep efficiency was moderately reduced to 62%. The sleep latency was prolonged to 63 minutes. Wake after sleep onset was increased to 91.5 minutes. The REM latency was severely prolonged to 303.5 minutes. There was only 1 REM period. Sleep consisted of stage N1 21%, stage N2 59%, stage N3 10%, stage REM 10%. Arousal data: The patient had a total of 108 arousals including 69 spontaneous arousals, 15 respiratory arousals, 16 PLM arousals, and 8 snoring arousals. The arousal index was 25. PLM data: The patient had a total of 179 periodic limb movements of sleep for a PLM index of 41.8. There were 17 limb movements with arousals for a PLM arousal index of 4.0. EKG: The underlying cardiac rhythm was normal sinus. The rhythm was irregular. This may reflect frequent PACs. Cannot entirely exclude a chaotic atrial rhythm. The cardiac rates 55-78 beats per minute with an average heart rate of 67 beats per minute. Respiratory data: The patient is nocturnal respiratory events were treated with nasal CPAP which was titrated to a final pressure of 10 cm. For the night she had a total of 42 respiratory events including 2 obstructive apneas and 40 hypopneas. Hypopneas were scored according to the 4% desaturation rule. The longest apnea was 24.2 seconds. The mean duration of the hypopneas was 18.5 seconds. The apnea- hypopnea index was mildly elevated at 9.8 events per hour. At the final pressure of 10 cm she had only 1 respiratory event, and obstructive apnea. Her apnea-hypopnea index at the final pressure was only 2.3 events per hour. Oximetry data: The average saturation for the night was 92%. The minimum saturation was 79%. This was very transient and may have been technical. There was a total of 34.9 minutes with saturations less than 89%. T[employer] Assembler comments: The patient slept in the right and left positions. Cardiac arrhythmia is were noted. PLMS were noted. No bruxism noted. CPAP was initiated at 4 cm and up titrated to a level of 10 cm with C flex 2. An air fit F10 full face mask size medium from [employer] med was used. Patient awakened to use the restroom 1 time during the night. She stated that she slept a little better than usual. Impressions: 1. Obstructive sleep apnea-improved with nasal CPAP at 10 cm 2. Periodic limb movement disorder 3. Cardiac arrhythmia-frequent PACs versus chaotic atrial rhythm Comments: The patient had difficulty initiating sleep. Her sleep efficiency was decreased. Her sleep was more consolidated after 3:00 a.m.. At the final pressure she had an apnea-hypopnea index of only 2.3. She had frequent periodic limb movements. This is not unusual with resolution of sleep disordered breathing. The sleep apnea should be treated 1st and then the leg movements can be re-evaluated. Recommendations: 1. It is suggested that the patient be started on nasal CPAP at 10 cm with C flex 2 2. It is suggested that she be ordered an air fit F10 full face mask size medium from [employer] med 3. An overnight pulse oximetry study is advised while she is wearing nasal CPAP 4. Weight reduction is advised in light of the elevation of body mass index at 38.89. Copies To 1: Deuce Barillas DO; Ok Galo M.D.
== END | disposition home or self-care (01) ==
LOC: C.NEUR 21:00
PROVIDERS: ATTEND Internal Medicine Pulmonary Disease
DX: G47.33 Obstructive sleep apnea (adult) (pediatric) (principal); G47.61 Periodic limb movement disorder; I49.9 Cardiac arrhythmia, unspecified

== ENCOUNTER → 2017-10-12 | Outpatient (CLI) | payer OTHER ==
[2017-10-12 17:38] LABS: BASO % 1.8 %; BASO ABS # 0.22 K/uL (0-0.2); COMPLETE YES; EOS % 2.1 %; HEMATOCRIT 41.7 % (37-47); IG% 4.5 %; LYMPH % 15.2 %; LYMPH ABS # 1.84 K/uL (1.2-3.4); MEAN CELL VOLUME 90.8 fL (80-100); MEAN CORPUSCULAR HEMOGLOBIN 29.2 pg (25-34); MEAN CORPUSCULAR HGB CONC 32.1 g/dl (32-36); MEAN PLATELET VOLUME 9.2 fL (7.4-10.4); MONO % 6.2 %; NEUT % 70.2 %; PLATELET COUNT 312 K/uL (130-400); RED BLOOD COUNT 4.59 M/uL (4.2-5.4); WHITE BLOOD COUNT 12.13 K/uL (4.8-10.8)
[2017-10-12 17:41] LABS: URINE APPEARANCE CLEAR (CLEAR); URINE BILIRUBIN NEG (NEG); URINE COLOR YELLOW; URINE EPITHELIAL CELL AUTO >30 /lpf (0-5); URINE NITRITE NEG (NEG); URINE PH 5.5 (4.5-7.5); URINE SPECIFIC GRAVITY 1.013 (1.000-1.030); UROBILINOGEN NEG (NEG); ZZUR CULT IF INDIC CLEAN CATCH NO
[2017-10-12 17:56] LABS: MANUAL MICROSCOPIC REQUIRED? NO; REVIEW REQ? NO
[2017-10-12 18:20] LABS: BLOOD UREA NITROGEN 37 mg/dl (7-18); BUN/CREATININE RATIO 23.3 (10-20); CALCIUM 9.3 mg/dl (8.5-10.1); CARBON DIOXIDE 24 mmol/L (21-32); CHLORIDE 97 mmol/L (98-107); GLUCOSE 97 mg/dl (70-99); POTASSIUM 4.3 mmol/L (3.5-5.1); SODIUM 128 mmol/L (136-145)
[2017-10-12 18:46] LABS: CREATININE, URINE 39.7 mg/dl; URINE PROTIEN/CREAT RATIO 0.2 (0-0.2); URINE TOTAL PROTEIN 6.5 mg/dl (0-11.9)
== END | disposition home or self-care (01) ==
LOC: C.LABPBG 12:24
PROVIDERS: ATTEND Internal Medicine Nephrology
DX: N18.3 Chronic kidney disease, stage 3 (moderate) (principal)

== ENCOUNTER → 2017-10-21 | Outpatient (CLI) | payer OTHER ==
[2017-10-21 17:41] LABS: BLOOD UREA NITROGEN 30 mg/dl (7-18); BUN/CREATININE RATIO 20.9 (10-20); CALCIUM 9.6 mg/dl (8.5-10.1); CARBON DIOXIDE 29 mmol/L (21-32); CHLORIDE 96 mmol/L (98-107); CREATININE 1.41 mg/dl (0.60-1.20); GLUCOSE 127 mg/dl (70-99); SODIUM 132 mmol/L (136-145)
[2017-10-21 17:42] LABS: PHOSPHORUS 3.2 mg/dl (2.5-4.9)
== END | disposition home or self-care (01) ==
LOC: C.LABPBG 13:39
PROVIDERS: ATTEND Internal Medicine Nephrology
DX: E87.1 Hypo-osmolality and hyponatremia (principal)

== ENCOUNTER → 2017-11-30 | Outpatient (CLI) | payer OTHER ==
[2017-11-30 12:23] LABS: BASO % 1.1 %; BASO ABS # 0.08 K/uL (0-0.2); EOS % 0.8 %; EOS ABS # 0.06 K/uL (0-0.5); HEMATOCRIT 36.7 % (37-47); HEMOGLOBIN 11.4 g/dL (12.0-16.0); IG# 0.14 K/uL (0.00-0.02); LYMPH % 13.3 %; LYMPH ABS # 1.01 K/uL (1.2-3.4); MEAN CELL VOLUME 94.3 fL (80-100); MEAN CORPUSCULAR HEMOGLOBIN 29.3 pg (25-34); MEAN CORPUSCULAR HGB CONC 31.1 g/dl (32-36); MEAN PLATELET VOLUME 9.2 fL (7.4-10.4); MONO % 5.5 %; MONO ABS # 0.42 K/uL (0.11-0.59); NEUT % 77.5 %; NEUT ABS # 5.87 K/uL (1.4-6.5); PLATELET COUNT 332 K/uL (130-400); RED CELL DISTRIBUTION WIDTH CV 17.8 % (11.5-14.5); RED CELL DISTRIBUTION WIDTH SD 60.8 fL (36.4-46.3); WHITE BLOOD COUNT 7.58 K/uL (4.8-10.8)
[2017-11-30 12:45] LABS: ALBUMIN 2.9 gm/dl (3.4-5.0); ALT/SGPT 18 U/L (12-78); BLOOD UREA NITROGEN 18 mg/dl (7-18); CALCIUM 9.3 mg/dl (8.5-10.1); CARBON DIOXIDE 30 mmol/L (21-32); CREATININE 1.03 mg/dl (0.60-1.20); GLUCOSE 113 mg/dl (70-99); POTASSIUM 3.9 mmol/L (3.5-5.1); SODIUM 135 mmol/L (136-145)
[2017-11-30 12:47] LABS: ALKALINE PHOSPHATASE 154 U/L (45-117); AST/SGOT 23 U/L (15-37); PHOSPHORUS 3.3 mg/dl (2.5-4.9); TOTAL PROTEIN 7.3 gm/dl (6.4-8.2)
== END | disposition home or self-care (01) ==
LOC: C.LABBFT 09:19
PROVIDERS: ATTEND Internal Medicine Nephrology
DX: N18.3 Chronic kidney disease, stage 3 (moderate) (principal); D64.9 Anemia, unspecified; E55.9 Vitamin D deficiency, unspecified

== ENCOUNTER → 2018-01-11 | Outpatient (CLI) | payer OTHER ==
[2018-01-11 17:40] LABS: BASO % 2.7 %; BASO ABS # 0.32 K/uL (0-0.2); EOS % 1.9 %; EOS ABS # 0.23 K/uL (0-0.5); HEMATOCRIT 41.7 % (37-47); HEMOGLOBIN 13.1 g/dL (12.0-16.0); IG# 0.32 K/uL (0.00-0.02); LYMPH % 15.5 %; LYMPH ABS # 1.87 K/uL (1.2-3.4); MEAN CELL VOLUME 92.3 fL (80-100); MEAN CORPUSCULAR HGB CONC 31.4 g/dl (32-36); MEAN PLATELET VOLUME 9.6 fL (7.4-10.4); MONO % 6.3 %; MONO ABS # 0.76 K/uL (0.11-0.59); NEUT % 70.9 %; NEUT ABS # 8.55 K/uL (1.4-6.5); PLATELET COUNT 365 K/uL (130-400); RED CELL DISTRIBUTION WIDTH CV 16.2 % (11.5-14.5); RED CELL DISTRIBUTION WIDTH SD 54.5 fL (36.4-46.3); WHITE BLOOD COUNT 12.05 K/uL (4.8-10.8)
== END | disposition home or self-care (01) ==
LOC: C.LABBFT 14:00
PROVIDERS: ATTEND Physician Assistant Medical
DX: D62 Acute posthemorrhagic anemia (principal)

== ENCOUNTER → 2018-01-26 | Outpatient (CLI) | payer OTHER ==
--- NOTE | 2018-01-26 11:17 | DIAGNOSTIC IMAGING REPORT ---
CT OF THE CHEST WITHOUT IV CONTRAST CLINICAL HISTORY: Lung cancer. COMPARISON STUDY: Chest CT July 13, 2017 and PET/CT December 17, 2016. CT DOSE: 744.25 mGy.cm TECHNIQUE: Axial images of the chest were obtained without IV contrast. Images were reviewed in the axial, sagittal, and coronal planes. IV contrast was not administered for this examination. A dose lowering technique was utilized adhering to the principles of ALARA. FINDINGS: 3.9 cm hyperdense anterior mediastinal mass which contains a few calcifications is similar to earlier exams. 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 No enlarged axillary, mediastinal or hilar lymph nodes are present. The heart is mildly enlarged. There is no pericardial effusion. There are stable postoperative findings consistent with a left lower lobectomy. Linear operative bed density favors scar. This is unchanged. There is a trace left pleural effusion which is unchanged. Central airways are patent. There is mild to moderate upper lobe predominant emphysema. There are no suspicious pulmonary nodules. No suspicious osseous lesions are noted. A left renal cyst is partially imaged on this exam. A few additional left renal lesions likely reflect cysts as well. These are unchanged. Left adrenal gland nodularity is unchanged. IMPRESSION: 1. No evidence for recurrent malignancy status post left lower lobectomy. 2. Mild to moderate upper lobe predominant emphysema. 3. 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 Electronically signed by: Sandor Ibrahim M.D. 01/26/2018 11:16 AM Dictated Date/Time: 01/26/2018 11:04 AM
[2018-01-26 12:21] LABS: BASO % 2.4 %; BASO ABS # 0.33 K/uL (0-0.2); EOS ABS # 0.28 K/uL (0-0.5); HEMATOCRIT 41.6 % (37-47); HEMOGLOBIN 13.6 g/dL (12.0-16.0); IG# 0.53 K/uL (0.00-0.02); LYMPH % 15.6 %; LYMPH ABS # 2.14 K/uL (1.2-3.4); MEAN CORPUSCULAR HEMOGLOBIN 29.4 pg (25-34); MEAN CORPUSCULAR HGB CONC 32.7 g/dl (32-36); MEAN PLATELET VOLUME 9.4 fL (7.4-10.4); MONO % 5.9 %; MONO ABS # 0.81 K/uL (0.11-0.59); NEUT % 70.2 %; NEUT ABS # 9.62 K/uL (1.4-6.5); PLATELET COUNT 377 K/uL (130-400); RED CELL DISTRIBUTION WIDTH CV 16.4 % (11.5-14.5); RED CELL DISTRIBUTION WIDTH SD 54.2 fL (36.4-46.3); WHITE BLOOD COUNT 13.71 K/uL (4.8-10.8)
[2018-01-26 12:40] LABS: ALBUMIN 3.2 gm/dl (3.4-5.0); ALKALINE PHOSPHATASE 152 U/L (45-117); ALT/SGPT 22 U/L (12-78); AST/SGOT 19 U/L (15-37); BLOOD UREA NITROGEN 38 mg/dl (7-18); CALCIUM 9.3 mg/dl (8.5-10.1); CARBON DIOXIDE 26 mmol/L (21-32); CREATININE 1.27 mg/dl (0.60-1.20); GLUCOSE 103 mg/dl (70-99); POTASSIUM 4.2 mmol/L (3.5-5.1); SODIUM 134 mmol/L (136-145)
[2018-01-26 12:41] LABS: TOTAL PROTEIN 7.8 gm/dl (6.4-8.2)
== END | disposition home or self-care (01) ==
LOC: C.CTS 10:02
PROVIDERS: ATTEND Internal Medicine Hematology & Oncology
DX: C34.32 Malignant neoplasm of lower lobe, left bronchus or lung (principal); J43.9 Emphysema, unspecified; J98.59 Other diseases of mediastinum, not elsewhere classified

== ENCOUNTER → 2018-01-29 | Outpatient (CLI) | payer OTHER ==
[2018-01-29 14:55] LABS: BASO % 1.5 %; EOS % 1.6 %; EOS ABS # 0.22 K/uL (0-0.5); HEMATOCRIT 40.7 % (37-47); HEMOGLOBIN 13.1 g/dL (12.0-16.0); IG# 0.35 K/uL (0.00-0.02); LYMPH % 11.4 %; LYMPH ABS # 1.55 K/uL (1.2-3.4); MEAN CELL VOLUME 91.5 fL (80-100); MEAN CORPUSCULAR HEMOGLOBIN 29.4 pg (25-34); MEAN CORPUSCULAR HGB CONC 32.2 g/dl (32-36); MEAN PLATELET VOLUME 9.2 fL (7.4-10.4); MONO % 4.3 %; MONO ABS # 0.59 K/uL (0.11-0.59); NEUT % 78.6 %; NEUT ABS # 10.66 K/uL (1.4-6.5); PLATELET COUNT 358 K/uL (130-400); RED CELL DISTRIBUTION WIDTH CV 16.4 % (11.5-14.5); RED CELL DISTRIBUTION WIDTH SD 54.9 fL (36.4-46.3); WHITE BLOOD COUNT 13.57 K/uL (4.8-10.8)
[2018-01-29 15:34] LABS: ALBUMIN 3.1 gm/dl (3.4-5.0); BLOOD UREA NITROGEN 26 mg/dl (7-18); CALCIUM 9.7 mg/dl (8.5-10.1); CARBON DIOXIDE 31 mmol/L (21-32); CREATININE 1.12 mg/dl (0.60-1.20); GLUCOSE 109 mg/dl (70-99); PHOSPHORUS 3.2 mg/dl (2.5-4.9); POTASSIUM 4.2 mmol/L (3.5-5.1); SODIUM 135 mmol/L (136-145)
== END | disposition home or self-care (01) ==
LOC: C.LAB1850 12:16
PROVIDERS: ATTEND Internal Medicine Nephrology
DX: D72.829 Elevated white blood cell count, unspecified (principal); N18.3 Chronic kidney disease, stage 3 (moderate)

== ENCOUNTER → 2018-03-23 | Outpatient (CLI) | payer OTHER ==
[~2018-03-23] MED LIST changes: +PROC10TA PO; -PROC1TAB5 PO
[2018-03-23 17:56] LABS: ALBUMIN 3.2 gm/dl (3.4-5.0); BLOOD UREA NITROGEN 33 mg/dl (7-18); CALCIUM 9.2 mg/dl (8.5-10.1); CARBON DIOXIDE 31 mmol/L (21-32); CREATININE 1.16 mg/dl (0.60-1.20); GLUCOSE 99 mg/dl (70-99); PHOSPHORUS 3.4 mg/dl (2.5-4.9); POTASSIUM 4.4 mmol/L (3.5-5.1); SODIUM 136 mmol/L (136-145); URIC ACID 11.2 mg/dl (2.6-7.2)
== END | disposition home or self-care (01) ==
LOC: C.LAB1850 15:47
PROVIDERS: ATTEND Internal Medicine Nephrology
DX: N18.3 Chronic kidney disease, stage 3 (moderate) (principal)

== ENCOUNTER 2019-08-18 11:55 | Inpatient (IN) ==
[2019-08-18] MEDS ORDERED: SODIUM CHLORIDE 0.9% 1000ML 1,000 ML IV ONE (12:19)
[2019-08-18 12:32] LABS: Basophils # (auto) 0.02 K/uL (0-0.2); Basophils % (auto) 0.2 %; Eosinophils # (auto) 0.13 K/uL (0-0.5); Eosinophils % (auto) 1.5 %; Hematocrit (blood only) 24.8 % (37-47); Hemoglobin 7.6 g/dL (12.0-16.0); Immature Granulocytes # (auto) 0.04 K/uL (0.00-0.02); Immature Granulocytes % (auto) 0.5 %; Lymphocytes # (auto) 1.96 K/uL (1.2-3.4); Lymphocytes % (auto) 22.8 %; Mean Corpuscular Hemoglobin 24.1 pg (25-34); Mean Corpuscular Hgb Conc 30.6 g/dL (32-36); Mean Corpuscular Volume 78.5 fL (80-100); Mean Platelet Volume 8.6 fL (7.4-10.4); Monocytes # (auto) 0.89 K/uL (0.11-0.59); Monocytes % (auto) 10.4 %; Neutrophils # (auto) 5.54 K/uL (1.4-6.5); Neutrophils % (auto) 64.6 %; Nucleated RBC # (auto) 0.03 K/uL (0-0); Nucleated RBC % (auto) 0.3 %; Platelet Count 332 K/uL (130-400); RDW Coefficient of Variation 17.8 % (11.5-14.5); RDW Standard Deviation 50.5 fL (36.4-46.3); Red Blood Count 3.16 M/uL (4.2-5.4); White Blood Count 8.58 K/uL (4.8-10.8)
[2019-08-18 12:39] LABS: Alanine Aminotransferase 22 U/L (12-78); Aspartate Aminotransferase 27 U/L (15-37); Bilirubin Direct 0.2 mg/dl (0-0.2); Blood Urea Nitrogen 47 mg/dl (7-18); Calcium 9.1 mg/dl (8.5-10.1); Carbon Dioxide 29 mmol/L (21-32); Chloride 94 mmol/L (98-107); Est GFR (African American) 33.4; Est GFR (Non-African American) 28.8; Glucose 112 mg/dl (70-99); Lipase 130 U/L (73-393); Magnesium 1.9 mg/dl (1.8-2.4); Potassium 3.9 mmol/L (3.5-5.1); Sodium 131 mmol/L (136-145)
[2019-08-18 12:43] LABS: Alkaline Phosphatase 113 U/L (45-117); Bilirubin,Total 0.4 mg/dl (0.2-1); Total Protein 7.9 gm/dl (6.4-8.2); Troponin I < 0.015 ng/ml (0-0.045)
[2019-08-18 12:57] LABS: Appearance Urine Clear (Clear); Bacteria Urine Automated Negative (Negative); Bilirubin Urine Negative (Negative); Blood Urine Negative (Negative); Color Urine Yellow; Glucose Urine UA Negative (Negative); Ketones Urine Negative (Negative); Leukocyte Esterase Urine Negative (Negative); Nitrite Urine Negative (Negative); Protein Urine 1+ (Negative); RBC Urine Automated 0-4 /hpf (0-4); Specific Gravity Urine 1.009 (1.000-1.030); Urobilinogen Urine Negative (Negative)
[2019-08-18 13:16] LABS: Anisocytosis Present; Microcytosis Present
--- NOTE | 2019-08-18 13:16 | XRay Report ---
XR chest 1V portable HISTORY: 64 years-old Female sob sepsis ro pna acute shortness of breath with sepsis COMPARISON: Chest CT 01/27/2019 TECHNIQUE: Portable AP view of the chest FINDINGS: Cardiac silhouette is enlarged, unchanged. Mild pulmonary vascular congestion. Chronic mild left luis diaphragmatic elevation. Blunting of the cost phrenic angles suggests trace effusions. Minor intersti tial coarsening. Minimal left basilar opacities. No pneumothorax or lobar airspace consolidation. Gen eral changes of the shoulders and spine. IMPRESSION: 1. Cardiomegaly with pulmonary vascular congestion and interstitial coarsening suggestive of pulmonar y edema. 2. Trace pleural effusions. 3. Unchanged left diaphragmatic elevation with left basilar opacities suggestive of atelectasis. The above report was generated using voice recognition software. It may contain grammatical, syntax o r spelling errors. Electronically signed by: Tab Cortez M.D. 08/18/2019 1:14 PM
--- NOTE | 2019-08-18 13:19 | CT Scan Report ---
CT head/brain wo con CLINICAL HISTORY: 64 years-old Female with fall wekaness on xarelto. Acute head injury and weakness status post fall TECHNIQUE: Multiple axial CT images of the head were obtained without contrast. A dose lowering tech nique was utilized adhering to the principles of ALARA. CT DOSE: 788.63 mGycm COMPARISON: None available FINDINGS: No acute intracranial hemorrhage, midline shift, intracranial mass, hydrocephalus, territorial ischem ia or abnormal extra-axial collection. Cerebral vascular calcifications are noted. The calvarium is intact. The paranasal sinuses, mastoid air cells, and middle ear cavities are clear . IMPRESSION: No acute intracranial abnormality or calvarial fracture. The above report was generated using voice recognition software. It may contain grammatical, syntax o r spelling errors. Electronically signed by: Tab Cortez M.D. 08/18/2019 1:18 PM
[2019-08-18 13:21] LABS: Base Excess VBG 4.4 mEq/L; HCO3 VBG 30 mmol/L; PCO2 VBG 48 mmHg (38-50); PO2 VBG 22 mmHg; pH VBG 7.41 (7.36-7.41)
[2019-08-18 13:21] LABS: Influenza A virus by PCR Neg for Influ A (Neg); Influenza B virus by PCR Neg for Influ B (Neg)
[2019-08-18 13:23] LABS: Oxygen Saturation VBG < 60.0 %
[2019-08-18 13:28] LABS: INR 1.7 (0.9-1.1); Partial Thromboplastin Ratio 1.5; Partial Thromboplastin Time 41.7 Seconds (21.0-31.0); Prothrombin Time 16.4 Seconds (9.0-12.0)
--- NOTE | 2019-08-18 16:30 | History & Physical Report ---
Date of Service August 18, 2019 Assessment & Plan (1) CHF exacerbation: (2) Fluid overload: (3) Edema: (4) Non-small cell lung cancer: (5) Osteoarthritis: (6) Type 2 diabetes mellitus with stage 3 chronic kidney disease, without long- term current use of insulin: (7) Hypertension: (8) Diabetes: (9) Emphysema lung: (10) Paroxysmal atrial fibrillation: (11) CKD (chronic kidney disease): (12) CML (chronic myelocytic leukemia): Start on IV Lasix 40 twice daily. Check echocardiogram. Consult cardiology. Consult hematology oncology. Consult nephrology. Repeat labs in a.m. Home medication list reconciled. Patient is on anticoagulation with Xarelto CODE STATUS full code. History of Present Illness Chief Complaint: sob Primary Care Provider: Ok Galo MD The patient is 64-year-old female with history of lung cancer status post lobectomy. She has history of CML currently on chemotherapy. Patient is now complaining of increasing shortness of breath and swelling of the body and generalized weakness getting worse for the last 5 days. She was recently diagnosed with volume overload as a side effect of her chemotherapy medication. She has occasional cough. No sputum or hemoptysis. No fever. Further work-up done in the ER shows that patient has volume overload, BNP is high at 4929. She will be admitted for further evaluation and management. Allergies Allergy/AdvReac Type Severity Reaction Status Date / Time diltiazem Allergy Severe SHORTNESS Verified 08/18/19 14:00 OF BREATH AND SWELLING OF HANDS AND FACE adhesive Allergy Mild BLISTERS Verified 08/18/19 14:00 latex Allergy Mild RASH Verified 08/18/19 14:00 indomethacin Allergy Unknown per pulm Verified 08/18/19 14:00 note Penicillins Allergy Unknown WELTS IN Verified 08/18/19 14:00 MOUTH AND SPREAD TO BODY codeine AdvReac Mild N&V&GI PAIN Verified 08/18/19 14:00 paroxetine AdvReac Mild GI SYMPTOMS Verified 08/18/19 14:00 varenicline AdvReac Mild GI SYMPTOMS Verified 08/18/19 14:00 Home Medications Home Medications Medication Instructions Recorded Confirmed Type albuterol sulfate [Ventolin HFA] 2 puff INHALATION QID PRN 09/01/18 08/18/19 History atorvastatin 20 mg PO HS 09/01/18 08/18/19 History cholecalciferol (vitamin D3) 2,000 unit PO QAM 09/01/18 08/18/19 History [Vitamin D3] docusate sodium [Stool Softener] 100 mg PO BID PRN 09/01/18 08/18/19 History fluticasone propionate [Flonase 1 spray INTRANASAL BID PRN 09/01/18 08/18/19 History Allergy Relief] loratadine 10 mg PO QAM PRN 09/01/18 08/18/19 History omeprazole 20 mg PO BID 09/01/18 08/18/19 History potassium chloride 20 meq PO BID 09/01/18 08/18/19 History rivaroxaban [Xarelto] 20 mg PO HS 09/01/18 08/18/19 History magnesium oxide 400 mg (241.3 mg 400 mg PO DAILY #30 tab 04/07/19 08/18/19 Rx magnesium) tablet montelukast 10 mg tablet 10 mg PO DAILY #30 tab 04/19/19 08/18/19 Rx metoprolol succinate ER 100 mg 100 mg PO TID #270 tab 06/16/19 08/18/19 Rx tablet,extended release 24 hr flecainide 100 mg tablet 100 mg PO TID tab 06/22/19 08/18/19 History spironolactone 50 mg tablet 50 mg PO BID tab 06/22/19 08/18/19 History umeclidinium 62.5 mcg/actuation 1 puffs INH DAILY 06/22/19 08/18/19 History blister powder for inhalation diphenhydramine 25 mg capsule 25 mg PO HS PRN cap 06/28/19 08/18/19 History dasatinib 100 mg tablet 100 mg PO DAILY 07/07/19 08/18/19 History tramadol 50 mg tablet 100 mg PO TID PRN #180 tab 07/26/19 08/18/19 Rx furosemide 80 mg tablet 80 mg PO BID #180 tab 08/09/19 08/18/19 Rx probenecid 500 mg tablet 250 mg PO BID #90 tab 08/09/19 08/18/19 Rx duloxetine 20 mg capsule,delayed 40 mg PO DAILY #60 cap 08/10/19 08/18/19 Rx release budesonide-formoterol [Symbicort] 2 puff INHALATION BID 08/18/19 08/18/19 History calcitriol 0.25 mcg PO 3XWK 08/18/19 08/18/19 History metolazone 2.5 mg PO 5XWK 08/18/19 08/18/19 History Past Med/Surg History Medical History Non-small cell lung cancer (Acute) Osteoarthritis (Acute) Obstructive sleep apnea (Acute) Solitary thyroid nodule (Acute) Type 2 diabetes mellitus with stage 3 chronic kidney disease, without long-term current use of insulin (Acute) Urine, incontinence, stress female (Acute) Vitamin D deficiency (Acute) Hypertension (Chronic) Chemotherapy induced nausea and vomiting Diabetes (Chronic) Emphysema lung (Chronic) GERD (gastroesophageal reflux disease) (Chronic) Hyponatremia (Chronic) Paroxysmal atrial fibrillation (Chronic) Anxiety Asthma Atrial fibrillation on xarelto---follows with Dr. Wright Chronic back pain Chronic kidney disease, stage 3 (moderate) Chronic obstructive pulmonary disease inhalers Depression Diabetes mellitus, type 2 no meds Enlarged thyroid gland just watching GERD (gastroesophageal reflux disease) Hx of gastric ulcer Hyperlipidemia Lung cancer, lower lobe 2017--left--sx, chemo On anticoagulant therapy On home oxygen therapy 2L n/c continuous Sleep apnea CPAP with 2L Surgical History History of appendectomy History of bronchoscopy 2017 History of cardiac cath 11/2017 @ [facility]--no stents History of cholecystectomy History of colonoscopy History of dilatation and curettage History of lobectomy of lung lower left lobe 2017 @ [facility] History of open reduction and internal fixation (ORIF) procedure R upper thigh x2--pins/rods in place History of tooth extraction all teeth History of total left knee replacement (TKR) History of total right knee replacement (TKR) Family History Sister Family history of reaction to anesthesia "had an allergic reaction", not sure what happened Mother Family history of diabetes mellitus Grandmother Family history of diabetes mellitus maternal Family/Other Family history of diabetes mellitus maternal uncle/maternal aunts Family/Other Family hx of colon cancer paternal cousin Social History Preferred Language: Sinhala Communication Ability: Effective Garage Helper Required: No Beliefs That Will Affect Care: None Current Living Situation: Alone Feels Safe at Home: Yes Smoking Status: Former smoker Second Hand Exposure: No ; Hx Alcohol Use: No Hx Substance Use: No Review of Systems Review of Systems: All systems reviewed & are unremarkable except as noted in HPI & below Constitutional: + body aches, + fatigue, + malaise and + weakness Respiratory: + cough, + dyspnea and + dyspnea on exertion Cardiovascular: + dyspnea, + dyspnea at rest, + dyspnea on exertion and + edema Physical Exam Physical Exam: GENERAL : No acute distress EYES: No icterus, gaze conjugate NOSE: No evidence of epistaxis MOUTH: No lesions or candidiasis, mucosa moist NECK: Supple LUNGS: Decreased breath sounds at bases HEART: Regular, rate controlled ABDOMEN: Soft, NT, ND, BS Present EXTREMITIES: pedal pulses intact Swelling of the legs present. NEURO: A&OX3 Results & Data Vital Signs (Past 12 Hours) Vital Signs Temp Pulse Pulse Resp BP BP Pulse Ox 08/18/19 16:00 57 L 13 100/81 99 08/18/19 15:30 54 L 18 106/51 L 100 08/18/19 15:00 55 L 16 104/43 L 99 08/18/19 14:41 76 12 100/46 L 100 08/18/19 14:39 19 100/46 L 100 08/18/19 14:30 57 L 14 100 08/18/19 14:00 54 L 11 L 99 08/18/19 13:30 54 L 15 100 08/18/19 13:00 54 L 11 L 93 08/18/19 12:40 54 L 16 123/96 100 08/18/19 12:32 54 L 17 123/96 08/18/19 12:30 53 L 14 100 08/18/19 12:12 98 08/18/19 12:08 56 L 6 L 98 08/18/19 12:02 57 L 10 L 90/40 L 98 08/18/19 12:00 98.1 F 54 L 14 90/40 L 98 Laboratory Results 08/18/19 11:22 08/18/19 11:22 08/18/19 08/18/19 08/18/19 Range/Units 12:56 12:52 12:47 WBC (4.8-10.8) K/uL RBC (4.2-5.4) M/uL Hgb (12.0-16.0) g/dL Hct (37-47) % MCV (80-100) fL MCH (25-34) pg MCHC (32-36) g/dL RDW Std Deviation (36.4-46.3) fL RDW Coeff of Bruce (11.5-14.5) % Plt Count (130-400) K/uL MPV (7.4-10.4) fL Immature Gran % (Auto) % Neut % (Auto) % Lymph % (Auto) % Hale % (Auto) % Eos % (Auto) % Baso % (Auto) % Immature Gran # (Auto) (0.00-0.02) K/uL Neut # (Auto) (1.4-6.5) K/uL Lymph # (Auto) (1.2-3.4) K/uL Hale # (Auto) (0.11-0.59) K/uL Eos # (Auto) (0-0.5) K/uL Baso # (Auto) (0-0.2) K/uL Absolute Nucleated RBC (0-0) K/uL Nucleated RBC % (auto) % Anisocytosis Microcytosis PT 16.4 H (9.0-12.0) Seconds INR 1.7 H (0.9-1.1) APTT 41.7 H (21.0-31.0) Seconds PTT Ratio 1.5 VBG pH 7.41 (7.36-7.41) VBG pCO2 48 (38-50) mmHg VBG pO2 22 mmHg VBG HCO3 30 mmol/L VBG O2 Saturation < 60.0 % VBG Base Excess 4.4 mEq/L Barometric Pressure 721.9 mm/Hg Sodium (136-145) mmol/L Potassium (3.5-5.1) mmol/L Chloride (98-107) mmol/L Carbon Dioxide (21-32) mmol/L Anion Gap (3-11) BUN (7-18) mg/dl Creatinine (0.6-1.2) mg/dl Est Cr Clr Drug Dosing Est GFR ( Amer) Est GFR (Non-Af Amer) BUN/Creatinine Ratio (10-20) Glucose (70-99) mg/dl Lactate 1.3 (0.4-2.0) mmol/L Calcium (8.5-10.1) mg/dl Magnesium (1.8-2.4) mg/dl Total Bilirubin (0.2-1) mg/dl Direct Bilirubin (0-0.2) mg/dl AST (15-37) U/L ALT (12-78) U/L Alkaline Phosphatase (45-117) U/L Troponin I (0-0.045) ng/ml NT-Pro-B Natriuret Pep (0-900) pg/ml Total Protein (6.4-8.2) gm/dl Albumin (3.4-5.0) gm/dl Lipase (73-393) U/L Urine Color Urine Appearance (Clear) Urine pH (4.5-7.5) Ur Specific [place] (1.000-1.030) Urine Protein (Negative) Urine Glucose (UA) (Negative) Urine Ketones (Negative) Urine Blood (Negative) Urine Nitrite (Negative) Urine Bilirubin (Negative) Urine Urobilinogen (Negative) Ur Leukocyte Esterase (Negative) Urine WBC (Auto) (0-5) /hpf Urine RBC (Auto) (0-4) /hpf U Hyaline Cast (Auto) (0-5) /lpf U Epithel Cells (Auto) (0-5) /lpf Urine Bacteria (Auto) (Negative) Influenza Type A (PCR) (Neg) Influenza Type B (PCR) (Neg) Blood Type Antibody Screen 08/18/19 08/18/19 08/18/19 Range/Units 12:45 12:40 12:40 WBC (4.8-10.8) K/uL RBC (4.2-5.4) M/uL Hgb (12.0-16.0) g/dL Hct (37-47) % MCV (80-100) fL MCH (25-34) pg MCHC (32-36) g/dL RDW Std Deviation (36.4-46.3) fL RDW Coeff of Bruce (11.5-14.5) % Plt Count (130-400) K/uL MPV (7.4-10.4) fL Immature Gran % (Auto) % Neut % (Auto) % Lymph % (Auto) % Hale % (Auto) % Eos % (Auto) % Baso % (Auto) % Immature Gran # (Auto) (0.00-0.02) K/uL Neut # (Auto) (1.4-6.5) K/uL Lymph # (Auto) (1.2-3.4) K/uL Hale # (Auto) (0.11-0.59) K/uL Eos # (Auto) (0-0.5) K/uL Baso # (Auto) (0-0.2) K/uL Absolute Nucleated RBC (0-0) K/uL Nucleated RBC % (auto) % Anisocytosis Microcytosis PT (9.0-12.0) Seconds INR (0.9-1.1) APTT (21.0-31.0) Seconds PTT Ratio VBG pH (7.36-7.41) VBG pCO2 (38-50) mmHg VBG pO2 mmHg VBG HCO3 mmol/L VBG O2 Saturation % VBG Base Excess mEq/L Barometric Pressure mm/Hg Sodium (136-145) mmol/L Potassium (3.5-5.1) mmol/L Chloride (98-107) mmol/L Carbon Dioxide (21-32) mmol/L Anion Gap (3-11) BUN (7-18) mg/dl Creatinine (0.6-1.2) mg/dl Est Cr Clr Drug Dosing Est GFR ( Amer) Est GFR (Non-Af Amer) BUN/Creatinine Ratio (10-20) Glucose (70-99) mg/dl Lactate (0.4-2.0) mmol/L Calcium (8.5-10.1) mg/dl Magnesium (1.8-2.4) mg/dl Total Bilirubin (0.2-1) mg/dl Direct Bilirubin (0-0.2) mg/dl AST (15-37) U/L ALT (12-78) U/L Alkaline Phosphatase (45-117) U/L Troponin I (0-0.045) ng/ml NT-Pro-B Natriuret Pep (0-900) pg/ml Total Protein (6.4-8.2) gm/dl Albumin (3.4-5.0) gm/dl Lipase (73-393) U/L Urine Color Yellow Urine Appearance Clear (Clear) Urine pH 7.0 (4.5-7.5) Ur Specific [place] 1.009 (1.000-1.030) Urine Protein 1+ H (Negative) Urine Glucose (UA) Negative (Negative) Urine Ketones Negative (Negative) Urine Blood Negative (Negative) Urine Nitrite Negative (Negative) Urine Bilirubin Negative (Negative) Urine Urobilinogen Negative (Negative) Ur Leukocyte Esterase Negative (Negative) Urine WBC (Auto) 1-5 (0-5) /hpf Urine RBC (Auto) 0-4 (0-4) /hpf U Hyaline Cast (Auto) 1-5 (0-5) /lpf U Epithel Cells (Auto) 10-20 H (0-5) /lpf Urine Bacteria (Auto) Negative (Negative) Influenza Type A (PCR) Neg for Influ A (Neg) Influenza Type B (PCR) Neg for Influ B (Neg) Blood Type A Negative Antibody Screen NEGATIVE 08/18/19 08/18/19 08/18/19 Range/Units 11:22 11:22 11:22 WBC 8.58 (4.8-10.8) K/uL RBC 3.16 L (4.2-5.4) M/uL Hgb 7.6 L (12.0-16.0) g/dL Hct 24.8 L (37-47) % MCV 78.5 L (80-100) fL MCH 24.1 L (25-34) pg MCHC 30.6 L (32-36) g/dL RDW Std Deviation 50.5 H (36.4-46.3) fL RDW Coeff of Bruce 17.8 H (11.5-14.5) % Plt Count 332 (130-400) K/uL MPV 8.6 (7.4-10.4) fL Immature Gran % (Auto) 0.5 % Neut % (Auto) 64.6 % Lymph % (Auto) 22.8 % Hale % (Auto) 10.4 % Eos % (Auto) 1.5 % Baso % (Auto) 0.2 % Immature Gran # (Auto) 0.04 H (0.00-0.02) K/uL Neut # (Auto) 5.54 (1.4-6.5) K/uL Lymph # (Auto) 1.96 (1.2-3.4) K/uL Hale # (Auto) 0.89 H (0.11-0.59) K/uL Eos # (Auto) 0.13 (0-0.5) K/uL Baso # (Auto) 0.02 (0-0.2) K/uL Absolute Nucleated RBC 0.03 H (0-0) K/uL Nucleated RBC % (auto) 0.3 % Anisocytosis Present Microcytosis Present PT (9.0-12.0) Seconds INR (0.9-1.1) APTT (21.0-31.0) Seconds PTT Ratio VBG pH (7.36-7.41) VBG pCO2 (38-50) mmHg VBG pO2 mmHg VBG HCO3 mmol/L VBG O2 Saturation % VBG Base Excess mEq/L Barometric Pressure mm/Hg Sodium 131 L (136-145) mmol/L Potassium 3.9 (3.5-5.1) mmol/L Chloride 94 L (98-107) mmol/L Carbon Dioxide 29 (21-32) mmol/L Anion Gap 8.0 (3-11) BUN 47 H (7-18) mg/dl Creatinine 1.80 H (0.6-1.2) mg/dl Est Cr Clr Drug Dosing Not Reportable Est GFR ( Amer) 33.4 Est GFR (Non-Af Amer) 28.8 BUN/Creatinine Ratio 26.0 H (10-20) Glucose 112 H (70-99) mg/dl Lactate (0.4-2.0) mmol/L Calcium 9.1 (8.5-10.1) mg/dl Magnesium 1.9 (1.8-2.4) mg/dl Total Bilirubin 0.4 (0.2-1) mg/dl Direct Bilirubin 0.2 (0-0.2) mg/dl AST 27 (15-37) U/L ALT 22 (12-78) U/L Alkaline Phosphatase 113 (45-117) U/L Troponin I < 0.015 (0-0.045) ng/ml NT-Pro-B Natriuret Pep 4929 H (0-900) pg/ml Total Protein 7.9 (6.4-8.2) gm/dl Albumin 3.0 L (3.4-5.0) gm/dl Lipase 130 (73-393) U/L Urine Color Urine Appearance (Clear) Urine pH (4.5-7.5) Ur Specific [place] (1.000-1.030) Urine Protein (Negative) Urine Glucose (UA) (Negative) Urine Ketones (Negative) Urine Blood (Negative) Urine Nitrite (Negative) Urine Bilirubin (Negative) Urine Urobilinogen (Negative) Ur Leukocyte Esterase (Negative) Urine WBC (Auto) (0-5) /hpf Urine RBC (Auto) (0-4) /hpf U Hyaline Cast (Auto) (0-5) /lpf U Epithel Cells (Auto) (0-5) /lpf Urine Bacteria (Auto) (Negative) Influenza Type A (PCR) (Neg) Influenza Type B (PCR) (Neg) Blood Type Antibody Screen Diagnostic Findings XR chest 1V portable HISTORY: 64 years-old Female sob sepsis ro pna acute shortness of breath with sepsis COMPARISON: Chest CT 01/27/2019 TECHNIQUE: Portable AP view of the chest FINDINGS: Cardiac silhouette is enlarged, unchanged. Mild pulmonary vascular congestion. Chronic mild left hemidiaphragmatic elevation. Blunting of the cost phrenic angles suggests trace effusions. Minor interstitial coarsening. Minimal left basilar opacities. No pneumothorax or lobar airspace consolidation. General changes of the shoulders and spine. IMPRESSION: 1. Cardiomegaly with pulmonary vascular congestion and interstitial coarsening suggestive of pulmonary edema. 2. Trace pleural effusions. 3. Unchanged left diaphragmatic elevation with left basilar opacities suggestive of atelectasis. The above report was generated using voice recognition software. It may contain grammatical, syntax or spelling errors. Code Status & VTE Plan Code Status Full code VTE Prophylaxis Plan VTE Prophylaxis will be ordered: Yes PG Care Time/CCT Total # of Minutes Spent Total Time Spent with Patient: Total time spent is greater than 50% in coordination of care (as documented) at patient's floor/unit and/or counseling patient:
--- NOTE | 2019-08-18 17:32 | Emergency Department Note ---
Entered by Tahira Segovia acting as a scribe for Simba Mcgee History of Present Illness General Chief complaint: Shortness of Breath/Dyspnea Stated complaint: weakness Time Seen by Provider: 08/18/19 12:13 Source: patient Mode of arrival: EMS Limitations: no limitations History of Present Illness Onset (ago): day(s) 2 Location: chest Radiation: non-radiation Pain Consistency: + constant Maximum Pain Intensity: 0 Relieved By: + none Exacerbated By: + movement Associated symptoms: + headaches, + weakness and + other (-melena, - hematochezia, -dysuria, -hematuria); no chest pain The patient is a 64 year old female who presents to the ED with complaints of shortness of breath. She is currently on chemotherapy for a history of lung cancer and has a history of a resection of her left lung. She follows with Dr. Lucero of [facility]. She states she has become increasingly weak and short of breath recently. She admits to 4 recent falls, but denies hitting her head during any of the falls. She does take daily Xarelto. She denies any chest pain, melena, hematochezia, dysuria or hematuria. She does admit to a headache. Home Medications Home Medications Medication Instructions Recorded Confirmed Type albuterol sulfate [Ventolin HFA] 2 puff INHALATION QID PRN 09/01/18 08/18/19 Hi story atorvastatin 20 mg PO HS 09/01/18 08/18/19 History cholecalciferol (vitamin D3) 2,000 unit PO QAM 09/01/18 08/18/19 History [Vitamin D3] docusate sodium [Stool Softener] 100 mg PO BID PRN 09/01/18 08/18/19 History fluticasone propionate [Flonase 1 spray INTRANASAL BID PRN 09/01/18 08/18/19 History Allergy Relief] loratadine 10 mg PO QAM PRN 09/01/18 08/18/19 History omeprazole 20 mg PO BID 09/01/18 08/18/19 History potassium chloride 20 meq PO BID 09/01/18 08/18/19 History rivaroxaban [Xarelto] 20 mg PO HS 09/01/18 08/18/19 History magnesium oxide 400 mg (241.3 mg 400 mg PO DAILY #30 tab 04/07/19 08/18/19 Rx magnesium) tablet montelukast 10 mg tablet 10 mg PO DAILY #30 tab 04/19/19 08/18/19 Rx metoprolol succinate ER 100 mg 100 mg PO TID #270 tab 06/16/19 08/18/19 Rx tablet,extended release 24 hr flecainide 100 mg tablet 100 mg PO TID tab 06/22/19 08/18/19 History spironolactone 50 mg tablet 50 mg PO BID tab 06/22/19 08/18/19 History umeclidinium 62.5 mcg/actuation 1 puffs INH DAILY 06/22/19 08/18/19 History blister powder for inhalation diphenhydramine 25 mg capsule 25 mg PO HS PRN cap 06/28/19 08/18/19 History dasatinib 100 mg tablet 100 mg PO DAILY 07/07/19 08/18/19 History tramadol 50 mg tablet 100 mg PO TID PRN #180 tab 07/26/19 08/18/19 Rx furosemide 80 mg tablet 80 mg PO BID #180 tab 08/09/19 08/18/19 Rx probenecid 500 mg tablet 250 mg PO BID #90 tab 08/09/19 08/18/19 Rx duloxetine 20 mg capsule,delayed 40 mg PO DAILY #60 cap 08/10/19 08/18/19 Rx release budesonide-formoterol [Symbicort] 2 puff INHALATION BID 08/18/19 08/18/19 History calcitriol 0.25 mcg PO 3XWK 08/18/19 08/18/19 History metolazone 2.5 mg PO 5XWK 08/18/19 08/18/19 History Allergies Allergy/AdvReac Type Severity Reaction Status Date / Time diltiazem Allergy Severe SHORTNESS Verified 08/18/19 14:00 OF BREATH AND SWELLING OF HANDS AND FACE adhesive Allergy Mild BLISTERS Verified 08/18/19 14:00 latex Allergy Mild RASH Verified 08/18/19 14:00 indomethacin Allergy Unknown per pulm Verified 08/18/19 14:00 note Penicillins Allergy Unknown WELTS IN Verified 08/18/19 14:00 MOUTH AND SPREAD TO BODY codeine AdvReac Mild N&V&GI PAIN Verified 08/18/19 14:00 paroxetine AdvReac Mild GI SYMPTOMS Verified 08/18/19 14:00 varenicline AdvReac Mild GI SYMPTOMS Verified 08/18/19 14:00 Past Med/Surg History Medical History Non-small cell lung cancer (Acute) Osteoarthritis (Acute) Obstructive sleep apnea (Acute) Solitary thyroid nodule (Acute) Type 2 diabetes mellitus with stage 3 chronic kidney disease, without long-term current use of insulin (Acute) Urine, incontinence, stress female (Acute) Vitamin D deficiency (Acute) Hypertension (Chronic) Chemotherapy induced nausea and vomiting Diabetes (Chronic) Emphysema lung (Chronic) GERD (gastroesophageal reflux disease) (Chronic) Hyponatremia (Chronic) Paroxysmal atrial fibrillation (Chronic) Anxiety Asthma Atrial fibrillation on xarelto---follows with Dr. Wright Chronic back pain Chronic kidney disease, stage 3 (moderate) Chronic obstructive pulmonary disease inhalers Depression Diabetes mellitus, type 2 no meds Enlarged thyroid gland just watching GERD (gastroesophageal reflux disease) Hx of gastric ulcer Hyperlipidemia Lung cancer, lower lobe 2017--left--sx, chemo On anticoagulant therapy On home oxygen therapy 2L n/c continuous Sleep apnea CPAP with 2L Surgical History History of appendectomy History of bronchoscopy 2017 History of cardiac cath 11/2017 @ [facility]--no stents History of cholecystectomy History of colonoscopy History of dilatation and curettage History of lobectomy of lung lower left lobe 2017 @ [facility] History of open reduction and internal fixation (ORIF) procedure R upper thigh x2--pins/rods in place History of tooth extraction all teeth History of total left knee replacement (TKR) History of total right knee replacement (TKR) Family History Sister Family history of reaction to anesthesia "had an allergic reaction", not sure what happened Mother Family history of diabetes mellitus Grandmother Family history of diabetes mellitus maternal Family/Other Family history of diabetes mellitus maternal uncle/maternal aunts Family/Other Family hx of colon cancer paternal cousin Social History Preferred Language: Kazakh Communication Ability: Effective Assistant Production Manager Required: No Beliefs That Will Affect Care: None Current Living Situation: Alone Other Information That Helps Us Care for You: No Feels Safe at Home: Yes Safety Concerns: Feels Safe At This Time Smoking Status: Former smoker Second Hand Exposure: No ; Hx Alcohol Use: No Hx Substance Use: No Review of Systems See HPI for pertinent positives & negatives. and A total of 10 systems reviewed and were otherwise negative Physical Exam Vital Signs Vital Signs - 24 hr 08/18/19 12:00 08/18/19 12:02 08/18/19 12:08 Temperature 36.7 C Temperature Source Oral Sepsis Recent Fever Within 48 Hours No Sepsis Action Taken by Nursing No Action Required Pulse Rate 54 L 57 L 56 L Pulse Rate [Left Finger] Pulse Rate from SpO2 Sensor 52 L 57 L Respiratory Rate 14 10 L 6 L Respiratory Effort / Characteristics Non-Labored Respiratory Depth Normal Blood Pressure 90/40 L 90/40 L Blood Pressure [Left Arm] Blood Pressure Mean 56 56 Blood Pressure Mean [Left Arm] Pulse Oximetry 98 98 98 Oxygen Delivery Method Nasal Cannula Oxygen Flow Rate 2 08/18/19 12:12 08/18/19 12:13 08/18/19 12:30 Temperature Temperature Source Sepsis Recent Fever Within 48 Hours Sepsis Action Taken by Nursing Pulse Rate 53 L Pulse Rate [Left Finger] Pulse Rate from SpO2 Sensor 55 L Respiratory Rate 14 Respiratory Effort / Characteristics Non-Labored Respiratory Depth Blood Pressure Blood Pressure [Left Arm] Blood Pressure Mean Blood Pressure Mean [Left Arm] Pulse Oximetry 98 100 Oxygen Delivery Method Nasal Cannula Nasal Cannula Oxygen Flow Rate 2 2 08/18/19 12:32 08/18/19 12:40 08/18/19 13:00 Temperature Temperature Source Sepsis Recent Fever Within 48 Hours Sepsis Action Taken by Nursing Pulse Rate 54 L 54 L Pulse Rate [Left Finger] 54 L Pulse Rate from SpO2 Sensor 59 L Respiratory Rate 17 16 11 L Respiratory Effort / Characteristics Respiratory Depth Normal Blood Pressure 123/96 Blood Pressure [Left Arm] 123/96 Blood Pressure Mean 105 Blood Pressure Mean [Left Arm] 105 Pulse Oximetry 100 93 Oxygen Delivery Method Nasal Cannula Oxygen Flow Rate 2 08/18/19 13:30 08/18/19 14:00 08/18/19 14:30 Temperature Temperature Source Sepsis Recent Fever Within 48 Hours Sepsis Action Taken by Nursing Pulse Rate 54 L 54 L 57 L Pulse Rate [Left Finger] Pulse Rate from SpO2 Sensor 59 L 52 L 62 Respiratory Rate 15 11 L 14 Respiratory Effort / Characteristics Respiratory Depth Blood Pressure Blood Pressure [Left Arm] Blood Pressure Mean Blood Pressure Mean [Left Arm] Pulse Oximetry 100 99 100 Oxygen Delivery Method Oxygen Flow Rate 10/17/19 14:39 08/18/19 14:41 08/18/19 15:00 Temperature Temperature Source Sepsis Recent Fever Within 48 Hours Sepsis Action Taken by Nursing Pulse Rate 55 L Pulse Rate [Left Finger] 76 Pulse Rate from SpO2 Sensor 58 L 57 L Respiratory Rate 19 12 16 Respiratory Effort / Characteristics Respiratory Depth Blood Pressure 100/46 L 104/43 L Blood Pressure [Left Arm] 100/46 L Blood Pressure Mean 64 63 Blood Pressure Mean [Left Arm] 64 Pulse Oximetry 100 100 99 Oxygen Delivery Method Room Air Oxygen Flow Rate 08/18/19 15:30 08/18/19 16:00 08/18/19 16:30 Temperature Temperature Source Sepsis Recent Fever Within 48 Hours Sepsis Action Taken by Nursing Pulse Rate 54 L 57 L 52 L Pulse Rate [Left Finger] Pulse Rate from SpO2 Sensor 53 L 56 L Respiratory Rate 18 13 16 Respiratory Effort / Characteristics Respiratory Depth Blood Pressure 106/51 L 100/81 105/52 L Blood Pressure [Left Arm] Blood Pressure Mean 69 87 69 Blood Pressure Mean [Left Arm] Pulse Oximetry 100 99 Oxygen Delivery Method Oxygen Flow Rate 08/18/19 17:00 Temperature Temperature Source Sepsis Recent Fever Within 48 Hours Sepsis Action Taken by Nursing Pulse Rate 54 L Pulse Rate [Left Finger] Pulse Rate from SpO2 Sensor Respiratory Rate 16 Respiratory Effort / Characteristics Respiratory Depth Blood Pressure 100/48 L Blood Pressure [Left Arm] Blood Pressure Mean 65 Blood Pressure Mean [Left Arm] Pulse Oximetry Oxygen Delivery Method Oxygen Flow Rate GENERAL: She is oriented to person, place, and time. She appears well-developed and well-nourished. She does not appear distressed. HENT: Exam performed. Head: Normocephalic and atraumatic. Right Ear: External ear normal. No mastoid tenderness. Left Ear: External ear normal. No mastoid tenderness. Mouth/Throat: The oropharynx is clear and moist. No trismus in the jaw. No dental abscesses or uvula swelling. No oropharyngeal exudate or tonsillar abscesses. EYES: Conjunctivae and EOM are normal. Pupils are equal, round, and reactive to light. Right eye exhibits no discharge. Left eye exhibits no discharge. No scleral icterus. NECK: Normal range of motion. Neck supple. No JVD present. No spinous process tenderness present. No carotid bruit present. No rigidity. No tracheal deviation and normal range of motion present. No Brudzinski's sign and no Kernig's sign noted. CV: Normal rate, regular rhythm, normal heart sounds and intact distal pulses. There 2+ pitting edema of the bilateral lower extremities. Palpable radial pulses bue. PULM/CHEST: Effort normal. Diminished breath sounds in the left lung. No strido r. She has no wheezes. She has no rales. Chest Wall: She exhibits no tenderness. ABD: The abdomen is soft. Bowel sounds are normal. She has no distension. No mass is present. There is no tenderness. There is no rebound, no guarding, no Sweeney's sign and no tenderness at McBurney's point. Rovsig negative MUSC/SKEL: Normal range of motion. There 2+ pitting edema of the bilateral lower extremities. No tenderness or deformity. LYMPH: No cervical adenopathy. NEURO: She is alert and oriented to person, place, and time. She has normal strength. No cranial nerve deficit or sensory deficit. Coordination and gait normal. GCS eye subscore is 4. GCS verbal subscore is 5. GCS motor subscore is 6. cerbellar tests wnl. SKIN: Skin is warm and dry. She is not diaphoretic. PSYCH: She has a normal mood and affect. Her behavior is normal. Judgment and thought content normal. Course 1215: The patient was evaluated in room A11 and a complete history and physical were performed. EMR reviewed. The patient has a history of leukemia, non-small cell lung cancer, emphysema, hyponatremia and atrial fibrillation. Patient was found to be hypotensive on arrival emergency department. Fluid resuscitation will be begun. 1255: I reevaluated the patient. Her BP has improved to 123/96 and she is still getting a fluid bolus. 1400: Her labs showed a Hemoglobin of 7.6 that is at baseline. Her Creatinine is at its baseline. Her CXR shows cardiomegaly with pulmonary edema. Her PCP and Dr. Morrissey have increased her Lasix to help with difficulty breathing. She was offered inpatient treatment but would like to go home. She has Oxygen at home. We will discuss her case with her oncologist prior to discharge. 1440: I discussed the patients case with Dr. Morrissey, [facility] Hematology/Oncology. He states the chemotherapy drug she is on can cause pleural effusions or pedal edema. He recommends discussing with cardiology for helping with managing the patient being fluid overloaded despite being on a high dose of Lasix. Patient states she sees Dr. Wright. She is again stating that she does not want to be admitted to the hospital. 1456: I spoke with Dr. Louie, [facility] Cardiology. Since the patient is refusing to be admitted to hospital, the patient should follow up with Dr. Wright or one of the PA-Cs. We can try cutting her Lasix to 40 mg BID. 1515: Case Management informed me the patient has changed her mind and would like to stay in the hospital. I will speak with the hospitalist. 1520: I discussed the patients case with Dr. Cao, [facility] Hospitalist. The patient will be further evaluated. Consultations Consultation #1: I discussed the patients case with Dr. Morrissey, [facility] Hematology/Oncology. He states the chemotherapy drug she is on can cause pleural effusions or pedal edema. Time: 14:40 Consultation #2: I spoke with Dr. Louie, [facility] Cardiology. Since the patient is refusing to be admitted to hospital, the patient should follow up with Dr. Wright or one of the PA-Cs. We can try cutting her Lasix to 40 mg BID. Time: 14:56 Consultation #3: I discussed the patients case with Dr. Cao, [facility] Hospitalist. The patient will be further evaluated. Time: 15:20 Administered Medications Discontinued Medications Sodium Chloride (Nss 1000ml) 1,000 mls @ 999 mls/hr IV .Q1H1M ONE Stop: 08/18/19 13:19 Last Infusion: 08/18/19 14:38 Dose: 0 mls/hr Documented by: [id number] Admin: 08/18/19 12:25 Dose: 999 mls/hr Documented by: [id number] Medical Decision Making Medical Records Attestation: I reviewed the patient's medical records. Home Medications Current Medication List: was personally reviewed by me Laboratory Data Attestation: I reviewed the patient's lab results. Result diagrams: 08/18/19 11:22 08/18/19 11:22 Lab Results 08/18/19 08/18/19 08/18/19 Range/Units 11:22 11:22 11:22 WBC 8.58 (4.8-10.8) K/uL RBC 3.16 L (4.2-5.4) M/uL Hgb 7.6 L (12.0-16.0) g/dL Hct 24.8 L (37-47) % MCV 78.5 L (80-100) fL MCH 24.1 L (25-34) pg MCHC 30.6 L (32-36) g/dL RDW Std Deviation 50.5 H (36.4-46.3) fL RDW Coeff of Bruce 17.8 H (11.5-14.5) % Plt Count 332 (130-400) K/uL MPV 8.6 (7.4-10.4) fL Immature Gran % (Auto) 0.5 % Neut % (Auto) 64.6 % Lymph % (Auto) 22.8 % Robeson % (Auto) 10.4 % Eos % (Auto) 1.5 % Baso % (Auto) 0.2 % Immature Gran # (Auto) 0.04 H (0.00-0.02) K/uL Neut # (Auto) 5.54 (1.4-6.5) K/uL Lymph # (Auto) 1.96 (1.2-3.4) K/uL Robeson # (Auto) 0.89 H (0.11-0.59) K/uL Eos # (Auto) 0.13 (0-0.5) K/uL Baso # (Auto) 0.02 (0-0.2) K/uL Absolute Nucleated RBC 0.03 H (0-0) K/uL Nucleated RBC % (auto) 0.3 % Anisocytosis Present Microcytosis Present PT (9.0-12.0) Seconds INR (0.9-1.1) APTT (21.0-31.0) Seconds PTT Ratio VBG pH (7.36-7.41) VBG pCO2 (38-50) mmHg VBG pO2 mmHg VBG HCO3 mmol/L VBG O2 Saturation % VBG Base Excess mEq/L Barometric Pressure mm/Hg Sodium 131 L (136-145) mmol/L Potassium 3.9 (3.5-5.1) mmol/L Chloride 94 L (98-107) mmol/L Carbon Dioxide 29 (21-32) mmol/L Anion Gap 8.0 (3-11) BUN 47 H (7-18) mg/dl Creatinine 1.80 H (0.6-1.2) mg/dl Est Cr Clr Drug Dosing Not Reportable Est GFR ( Amer) 33.4 Est GFR (Non-Af Amer) 28.8 BUN/Creatinine Ratio 26.0 H (10-20) Glucose 112 H (70-99) mg/dl Lactate (0.4-2.0) mmol/L Calcium 9.1 (8.5-10.1) mg/dl Magnesium 1.9 (1.8-2.4) mg/dl Total Bilirubin 0.4 (0.2-1) mg/dl Direct Bilirubin 0.2 (0-0.2) mg/dl AST 27 (15-37) U/L ALT 22 (12-78) U/L Alkaline Phosphatase 113 (45-117) U/L Troponin I < 0.015 (0-0.045) ng/ml NT-Pro-B Natriuret Pep 4929 H (0-900) pg/ml Total Protein 7.9 (6.4-8.2) gm/dl Albumin 3.0 L (3.4-5.0) gm/dl Lipase 130 (73-393) U/L Urine Color Urine Appearance (Clear) Urine pH (4.5-7.5) Ur Specific [place] (1.000-1.030) Urine Protein (Negative) Urine Glucose (UA) (Negative) Urine Ketones (Negative) Urine Blood (Negative) Urine Nitrite (Negative) Urine Bilirubin (Negative) Urine Urobilinogen (Negative) Ur Leukocyte Esterase (Negative) Urine WBC (Auto) (0-5) /hpf Urine RBC (Auto) (0-4) /hpf U Hyaline Cast (Auto) (0-5) /lpf U Epithel Cells (Auto) (0-5) /lpf Urine Bacteria (Auto) (Negative) Influenza Type A (PCR) (Neg) Influenza Type B (PCR) (Neg) Blood Type Antibody Screen 08/18/19 08/18/19 08/18/19 Range/Units 12:40 12:40 12:45 WBC (4.8-10.8) K/uL RBC (4.2-5.4) M/uL Hgb (12.0-16.0) g/dL Hct (37-47) % MCV (80-100) fL MCH (25-34) pg MCHC (32-36) g/dL RDW Std Deviation (36.4-46.3) fL RDW Coeff of Bruce (11.5-14.5) % Plt Count (130-400) K/uL MPV (7.4-10.4) fL Immature Gran % (Auto) % Neut % (Auto) % Lymph % (Auto) % Robeson % (Auto) % Eos % (Auto) % Baso % (Auto) % Immature Gran # (Auto) (0.00-0.02) K/uL Neut # (Auto) (1.4-6.5) K/uL Lymph # (Auto) (1.2-3.4) K/uL Robeson # (Auto) (0.11-0.59) K/uL Eos # (Auto) (0-0.5) K/uL Baso # (Auto) (0-0.2) K/uL Absolute Nucleated RBC (0-0) K/uL Nucleated RBC % (auto) % Anisocytosis Microcytosis PT (9.0-12.0) Seconds INR (0.9-1.1) APTT (21.0-31.0) Seconds PTT Ratio VBG pH (7.36-7.41) VBG pCO2 (38-50) mmHg VBG pO2 mmHg VBG HCO3 mmol/L VBG O2 Saturation % VBG Base Excess mEq/L Barometric Pressure mm/Hg Sodium (136-145) mmol/L Potassium (3.5-5.1) mmol/L Chloride (98-107) mmol/L Carbon Dioxide (21-32) mmol/L Anion Gap (3-11) BUN (7-18) mg/dl Creatinine (0.6-1.2) mg/dl Est Cr Clr Drug Dosing Est GFR ( Amer) Est GFR (Non-Af Amer) BUN/Creatinine Ratio (10-20) Glucose (70-99) mg/dl Lactate (0.4-2.0) mmol/L Calcium (8.5-10.1) mg/dl Magnesium (1.8-2.4) mg/dl Total Bilirubin (0.2-1) mg/dl Direct Bilirubin (0-0.2) mg/dl AST (15-37) U/L ALT (12-78) U/L Alkaline Phosphatase (45-117) U/L Troponin I (0-0.045) ng/ml NT-Pro-B Natriuret Pep (0-900) pg/ml Total Protein (6.4-8.2) gm/dl Albumin (3.4-5.0) gm/dl Lipase (73-393) U/L Urine Color Yellow Urine Appearance Clear (Clear) Urine pH 7.0 (4.5-7.5) Ur Specific [place] 1.009 (1.000-1.030) Urine Protein 1+ H (Negative) Urine Glucose (UA) Negative (Negative) Urine Ketones Negative (Negative) Urine Blood Negative (Negative) Urine Nitrite Negative (Negative) Urine Bilirubin Negative (Negative) Urine Urobilinogen Negative (Negative) Ur Leukocyte Esterase Negative (Negative) Urine WBC (Auto) 1-5 (0-5) /hpf Urine RBC (Auto) 0-4 (0-4) /hpf U Hyaline Cast (Auto) 1-5 (0-5) /lpf U Epithel Cells (Auto) 10-20 H (0-5) /lpf Urine Bacteria (Auto) Negative (Negative) Influenza Type A (PCR) Neg for Influ A (Neg) Influenza Type B (PCR) Neg for Influ B (Neg) Blood Type A Negative Antibody Screen NEGATIVE 08/18/19 08/18/19 08/18/19 Range/Units 12:47 12:52 12:56 WBC (4.8-10.8) K/uL RBC (4.2-5.4) M/uL Hgb (12.0-16.0) g/dL Hct (37-47) % MCV (80-100) fL MCH (25-34) pg MCHC (32-36) g/dL RDW Std Deviation (36.4-46.3) fL RDW Coeff of Bruce (11.5-14.5) % Plt Count (130-400) K/uL MPV (7.4-10.4) fL Immature Gran % (Auto) % Neut % (Auto) % Lymph % (Auto) % Robeson % (Auto) % Eos % (Auto) % Baso % (Auto) % Immature Gran # (Auto) (0.00-0.02) K/uL Neut # (Auto) (1.4-6.5) K/uL Lymph # (Auto) (1.2-3.4) K/uL Robeson # (Auto) (0.11-0.59) K/uL Eos # (Auto) (0-0.5) K/uL Baso # (Auto) (0-0.2) K/uL Absolute Nucleated RBC (0-0) K/uL Nucleated RBC % (auto) % Anisocytosis Microcytosis PT 16.4 H (9.0-12.0) Seconds INR 1.7 H (0.9-1.1) APTT 41.7 H (21.0-31.0) Seconds PTT Ratio 1.5 VBG pH 7.41 (7.36-7.41) VBG pCO2 48 (38-50) mmHg VBG pO2 22 mmHg VBG HCO3 30 mmol/L VBG O2 Saturation < 60.0 % VBG Base Excess 4.4 mEq/L Barometric Pressure 721.9 mm/Hg Sodium (136-145) mmol/L Potassium (3.5-5.1) mmol/L Chloride (98-107) mmol/L Carbon Dioxide (21-32) mmol/L Anion Gap (3-11) BUN (7-18) mg/dl Creatinine (0.6-1.2) mg/dl Est Cr Clr Drug Dosing Est GFR ( Amer) Est GFR (Non-Af Amer) BUN/Creatinine Ratio (10-20) Glucose (70-99) mg/dl Lactate 1.3 (0.4-2.0) mmol/L Calcium (8.5-10.1) mg/dl Magnesium (1.8-2.4) mg/dl Total Bilirubin (0.2-1) mg/dl Direct Bilirubin (0-0.2) mg/dl AST (15-37) U/L ALT (12-78) U/L Alkaline Phosphatase (45-117) U/L Troponin I (0-0.045) ng/ml NT-Pro-B Natriuret Pep (0-900) pg/ml Total Protein (6.4-8.2) gm/dl Albumin (3.4-5.0) gm/dl Lipase (73-393) U/L Urine Color Urine Appearance (Clear) Urine pH (4.5-7.5) Ur Specific [place] (1.000-1.030) Urine Protein (Negative) Urine Glucose (UA) (Negative) Urine Ketones (Negative) Urine Blood (Negative) Urine Nitrite (Negative) Urine Bilirubin (Negative) Urine Urobilinogen (Negative) Ur Leukocyte Esterase (Negative) Urine WBC (Auto) (0-5) /hpf Urine RBC (Auto) (0-4) /hpf U Hyaline Cast (Auto) (0-5) /lpf U Epithel Cells (Auto) (0-5) /lpf Urine Bacteria (Auto) (Negative) Influenza Type A (PCR) (Neg) Influenza Type B (PCR) (Neg) Blood Type Antibody Screen Imaging Data Radiologist's Impression: Radiology results as stated below per my review and the radiologist's interpretation: CT head/brain wo con CLINICAL HISTORY: 64 years-old Female with fall wekaness on xarelto. Acute head injury and weakness status post fall TECHNIQUE: Multiple axial CT images of the head were obtained without contrast. A dose lowering technique was utilized adhering to the principles of ALARA. CT DOSE: 788.63 mGycm COMPARISON: None available FINDINGS: No acute intracranial hemorrhage, midline shift, intracranial mass, h ydrocephalus, territorial ischemia or abnormal extra-axial collection. Cerebral vascular calcifications are noted. The calvarium is intact. The paranasal sinuses, mastoid air cells, and middle ear cavities are clear. IMPRESSION: No acute intracranial abnormality or calvarial fracture. The above report was generated using voice recognition software. It may contain grammatical, syntax or spelling errors. Electronically signed by: Tab Cortez M.D. 08/18/2019 1:18 PM XR chest 1V portable HISTORY: 64 years-old Female sob sepsis ro pna acute shortness of breath with sepsis COMPARISON: Chest CT 01/27/2019 TECHNIQUE: Portable AP view of the chest FINDINGS: Cardiac silhouette is enlarged, unchanged. Mild pulmonary vascular congestion. Chronic mild left hemidiaphragmatic elevation. Blunting of the cost phrenic angles suggests trace effusions. Minor interstitial coarsening. Minimal left basilar opacities. No pneumothorax or lobar airspace consolidation. General changes of the shoulders and spine. IMPRESSION: 1. Cardiomegaly with pulmonary vascular congestion and interstitial coarsening suggestive of pulmonary edema. 2. Trace pleural effusions. 3. Unchanged left diaphragmatic elevation with left basilar opacities suggestive of atelectasis. The above report was generated using voice recognition software. It may contain grammatical, syntax or spelling errors. Electronically signed by: Tab Cortez M.D. 08/18/2019 1:14 PM ECG Data Attestation: I personally reviewed and interpreted this ECG as follows: Indication: SOB/dyspnea Rate (beats per minute): 53 Rhythm: atrial fibrillation Findings: + other (QRS and QTC within normal limits); no ST depression and no ST elevation Blood Pressure Blood Pressure Findings: Elevated blood pressure Blood Pressure Disposition: Referred to patients primary care provider [facility] Narrative 1215: The patient was evaluated in room A11 and a complete history and physical were performed. EMR reviewed. The patient has a history of leukemia, non-small cell lung cancer, emphysema, hyponatremia and atrial fibrillation. Patient was found to be hypotensive on arrival emergency department. Fluid resuscitation will be begun. 1255: I reevaluated the patient. Her BP has improved to 123/96 and she is still getting a fluid bolus. 1400: Her labs showed a Hemoglobin of 7.6 that is at baseline. Her Creatinine is at its baseline. Her CXR shows cardiomegaly with pulmonary edema. Her PCP and Dr. Morrissey have increased her Lasix to help with difficulty breathing. She was offered inpatient treatment but would like to go home. She has Oxygen at home. We will discuss her case with her oncologist prior to discharge. 1440: I discussed the patients case with Dr. Morrissey, [facility] Hemato logy/Oncology. He states the chemotherapy drug she is on can cause pleural effusions or pedal edema. He recommends discussing with cardiology for helping with managing the patient being fluid overloaded despite being on a high dose of Lasix. Patient states she sees Dr. Wright. She is again stating that she does not want to be admitted to the hospital. 1456: I spoke with Dr. Louie, [facility] Cardiology. Since the patient is refusing to be admitted to hospital, the patient should follow up with Dr. Wright or one of the PA-Cs. We can try cutting her Lasix to 40 mg BID. 1515: Case Management informed me the patient has changed her mind and would like to stay in the hospital. I will speak with the hospitalist. 1520: I discussed the patients case with Dr. Cao, [facility] tj. The patient will be further evaluated. Impression & Plan CHF exacerbation, Fluid overload Discharge Plan Visit Data Chief Complaint: Shortness of Breath/Dyspnea Stated Complaint: weakness ED Provider: Simba Mcgee Discharge Problem: CHF exacerbation, Fluid overload Forms Stand Alone Forms: My [facility] Prescriptions Prescriptions: No Action magnesium oxide 400 mg (241.3 mg magnesium) tablet 400 mg PO DAILY Qty: 30 RF: 5 montelukast 10 mg tablet 10 mg PO DAILY Qty: 30 RF: 5 metoprolol succinate 100 mg tablet extended release 24 hr 100 mg PO TID Qty: 270 RF: 3 tramadol 50 mg tablet 100 mg PO TID PRN (Reason: pain) Qty: 180 RF: 0 furosemide 80 mg tablet 80 mg PO BID Qty: 180 RF: 1 probenecid 500 mg tablet 250 mg PO BID Qty: 90 RF: 1 duloxetine 20 mg capsule,delayed release(DR/EC) 40 mg PO DAILY Qty: 60 RF: 5 flecainide 100 mg tablet 100 mg PO TID RF: 0 Incruse Ellipta 62.5 mcg/actuation blister with device 1 puffs INH DAILY RF: 0 diphenhydramine HCl [Benadryl] 25 mg capsule 25 mg PO HS PRN (Reason: Allergic Symptoms) RF: 0 dasatinib 100 mg tablet 100 mg PO DAILY RF: 0 atorvastatin 20 mg Tablet 20 mg PO HS RF: 0 docusate sodium [Stool Softener] 100 mg Capsule 100 mg PO BID PRN (Reason: Constipation) RF: 0 albuterol sulfate [Ventolin HFA] 90 mcg/actuation Hfa Aerosol Inhaler 2 puff INHALATION QID PRN (Reason: Shortness Of Breath) RF: 0 fluticasone propionate [Flonase Allergy Relief] 50 mcg/actuation Jaffrey,Suspension 1 spray INTRANASAL BID PRN (Reason: Allergy Symptoms) RF: 0 loratadine 10 mg Tablet 10 mg PO QAM PRN (Reason: Allergy Symptoms) RF: 0 omeprazole 20 mg Tablet,Delayed Release (Dr/Ec) 20 mg PO BID RF: 0 cholecalciferol (vitamin D3) [Vitamin D3] 2,000 unit Capsule 2,000 unit PO QAM RF: 0 Xarelto 20 mg Tablet 20 mg PO HS RF: 0 potassium chloride 20 mEq Tablet Extended Release 20 meq PO BID RF: 0 spironolactone 50 mg tablet 50 mg PO BID RF: 0 metolazone 2.5 mg tablet 2.5 mg PO 5XWK RF: 0 calcitriol 0.25 mcg capsule 0.25 mcg PO 3XWK RF: 0 Symbicort 160-4.5 mcg/actuation HFA aerosol inhaler 2 puff INHALATION BID RF: 0 Referrals Referrals: Octavio Galo MD [Primary Care Provider] - The scribe's documentation has been prepared under my direction and personally reviewed by me in its entirety. I confirm that the note above accurately reflects all work, treatment, procedures, and medical decision making performed by me.
[2019-08-18] MEDS ORDERED: ZOLPIDEM TARTRATE 5 MG TAB PO PRN (18:38)
[2019-08-18] MEDS ORDERED: MAGNESIUM HYDROXIDE SUSP 30 ML UDC PO PRN (18:38)
[2019-08-18] MEDS ORDERED: ALUMINUM/MAGNESIUM SUSP 30 ML UDC PO PRN (18:38)
[2019-08-18] MEDS ORDERED: LORATADINE 10 MG TAB PO PRN (18:38)
[2019-08-18] MEDS ORDERED: ACETAMINOPHEN 325 MG TAB PO PRN (18:38)
[2019-08-18] MEDS ORDERED: DOCUSATE SODIUM 100 MG CAP PO PRN (18:38)
[2019-08-18] MEDS ORDERED: POLYETHYLENE (MIRALAX) 17 GM PACK PO PRN (18:38)
[2019-08-18] MEDS ORDERED: ONDANSETRON INJ 2 MG/ML 2 ML VIAL IV PRN (18:38)
[2019-08-18] MEDS ORDERED: ALBUTEROL HFA 8 GM INHALER INH PRN (18:38)
[2019-08-18] MEDS ORDERED: FLUTICASONE PROPIONATE NA SPR 16 GM BTL NAE PRN (18:38)
[2019-08-18] MEDS: FUROSEMIDE 40 MG in SYRINGE 0 ML IV SCH (21:38)
[2019-08-18] MEDS: POTASSIUM CHLORIDE 20 MEQ TABCR PO SCH (21:40)
[2019-08-18] MEDS: ATORVASTATIN 20 MG TAB PO SCH (21:40)
[2019-08-18] MEDS: INCRUSE ELLIPTA~ORDER AWAITING ACTION SCH ×2 (21:43→23:01)
[2019-08-18] MEDS: PANTOprazole 40 MG TAB PO SCH (21:44)
[2019-08-18] MEDS: BUDESONIDE/FORMOTEROL FUMARATE 160/4.5 60 PUFFS/INHALER INH SCH (21:44)
[2019-08-18] MEDS: RIVAROXABAN 20 MG TAB PO SCH (21:46)
[2019-08-18] MEDS: METOPROLOL SUCC 50MG EXT REL TAB PO SCH (21:47)
[2019-08-18] MEDS: PROBENECID 500 MG TAB PO SCH (22:16)
[2019-08-19] MEDS ORDERED: PERFLUTREN LIPID MICROSPHERE (DEFINITY) IV ONE (07:16)
[2019-08-19] MEDS ORDERED: metOLazone 2.5 MG TABLET PO SCH (07:30)
[2019-08-19] MEDS ORDERED: CALCITRIOL 0.25 MCG CAPSULE PO SCH (09:00)
[2019-08-19] MEDS ORDERED: SPIRONOLACTONE 25 MG TAB PO SCH (09:00)
[2019-08-19] MEDS: BUDESONIDE/FORMOTEROL FUMARATE 160/4.5 60 PUFFS/INHALER INH SCH ×2 (09:36→21:14)
[2019-08-19] MEDS: FUROSEMIDE 40 MG in SYRINGE 0 ML IV SCH (09:37)
[2019-08-19] MEDS: METOPROLOL SUCC 50MG EXT REL TAB PO SCH ×3 (09:37→21:17)
[2019-08-19] MEDS: CHOLECALCIFEROL 1,000 UNITS TAB PO SCH (09:37)
[2019-08-19] MEDS: DULOXETINE HCL 20 MG CAP PO SCH (09:37)
[2019-08-19] MEDS: PROBENECID 500 MG TAB PO SCH ×2 (09:37→21:16)
[2019-08-19] MEDS: POTASSIUM CHLORIDE 20 MEQ TABCR PO SCH ×2 (09:37→21:15)
[2019-08-19] MEDS: MONTELUKAST SODIUM 10 MG TABLET PO SCH (09:37)
[2019-08-19] MEDS: MAGNESIUM OXIDE 400 MG TAB PO SCH (09:37)
[2019-08-19] MEDS: PANTOprazole 40 MG TAB PO SCH (09:37)
--- NOTE | 2019-08-19 10:28 | Nephrology Consultation ---
Date of Consultation August 19, 2019 Assessment & Plan (1) Acute kidney injury: 64 yo F with stage 3A CKD, b/l cr 1.2-1.3 with h/o recurrent GIOVANA with volume depletion, admitted with SOB, weakness and inability to walk. Found to have GIOVANA, hyponatremia and pulmonary congestion on CXR. Received IV lasix and metolazone. Volume status improved significantly. Clinically she seems euvolemic. --recommend holding all diuretics for now --repeat renal panel in am --check iron profile, B 12 and folate, may need iron or KEYUR, will defer to hematology --may have to restart diuretics soon, however , will monitor closely for improvement in renal function and then resume diuretics as a lower dose , holding metolazone. --explain that with GIOVANA and need for adjustment of diuretics dose, we need to monitor her as in patient Will follow Thank you for the consult. 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 Admitted to hospital with SOB, GIOVANA and hyponatremia. EMR records were reviewed in detail during pts visit. Marycarmen presented to ER with multiple symptoms including progressive SOB, weakness in leg and inability to walk and repeated fall at home. On admission CXR showed pulmonary congestion, CT head was unremarkable. BP relatively soft. At home she has been on lasix 80 BID, metolazone 2.5 5 days/w and spironolactone 50 BID and K supplement for chronic h/o volume overload, pulmonary congestion, hypokalemia and paroxysmal A fib. On admission she was also found to have GIOVANA with cr 1.8 and hyponatremia, Na 131. Diuretics were continued at home dose. H/O Left upper lobe lobectomy in December 2016 for lung ca and had adjuvant chemo with cisplatin/etoposide but did not tolerate well and had nausea and vomiting associated with dehydration leading to GIOVANA and electrolyte abnormalities. After completing 2 of the recommended 4 infusions, she refused additional chemotherapy. She was then diagnosed with CML in April 2019 and currently on Sprycel 100 mg /d Has stage 3A CKd with b/l cr 1.2-1.3 and h/o repeated episode of GIOVANA in the setting of volume depletion with N/V. She currently denies SOB or any other specific symptoms. has been voiding ok. She now feels well and wants to go home. Allergies Allergy/AdvReac Type Severity Reaction Status Date / Time diltiazem Allergy Severe SHORTNESS Verified 08/18/19 14:00 OF BREATH AND SWELLING OF HANDS AND FACE adhesive Allergy Mild BLISTERS Verified 08/18/19 14:00 latex Allergy Mild RASH Verified 08/18/19 14:00 indomethacin Allergy Unknown per pulm Verified 08/18/19 14:00 note Penicillins Allergy Unknown WELTS IN Verified 08/18/19 14:00 MOUTH AND SPREAD TO BODY nut - unspecified Allergy Verified 08/19/19 12:09 peanut Allergy Verified 08/19/19 12:10 codeine AdvReac Mild N&V&GI PAIN Verified 08/18/19 14:00 paroxetine AdvReac Mild GI SYMPTOMS Verified 08/18/19 14:00 varenicline AdvReac Mild GI SYMPTOMS Verified 08/18/19 14:00 Home Medications Home Medications Medication Instructions Recorded Confirmed Type albuterol sulfate [Ventolin HFA] 2 puff INHALATION QID PRN 09/01/18 08/18/19 H istory atorvastatin 20 mg PO HS 09/01/18 08/18/19 History cholecalciferol (vitamin D3) 2,000 unit PO QAM 09/01/18 08/18/19 History [Vitamin D3] docusate sodium [Stool Softener] 100 mg PO BID PRN 09/01/18 08/18/19 History fluticasone propionate [Flonase 1 spray INTRANASAL BID PRN 09/01/18 08/18/19 History Allergy Relief] loratadine 10 mg PO QAM PRN 09/01/18 08/18/19 History omeprazole 20 mg PO BID 09/01/18 08/18/19 History potassium chloride 20 meq PO BID 09/01/18 08/18/19 History rivaroxaban [Xarelto] 20 mg PO HS 09/01/18 08/18/19 History magnesium oxide 400 mg (241.3 mg 400 mg PO DAILY #30 tab 04/07/19 08/18/19 Rx magnesium) tablet montelukast 10 mg tablet 10 mg PO DAILY #30 tab 04/19/19 08/18/19 Rx metoprolol succinate ER 100 mg 100 mg PO TID #270 tab 06/16/19 08/18/19 Rx tablet,extended release 24 hr flecainide 100 mg tablet 100 mg PO TID tab 06/22/19 08/18/19 History spironolactone 50 mg tablet 50 mg PO BID tab 06/22/19 08/18/19 History umeclidinium 62.5 mcg/actuation 1 puffs INH DAILY 06/22/19 08/18/19 History blister powder for inhalation diphenhydramine 25 mg capsule 25 mg PO HS PRN cap 06/28/19 08/18/19 History dasatinib 100 mg tablet 100 mg PO DAILY 07/07/19 08/18/19 History tramadol 50 mg tablet 100 mg PO TID PRN #180 tab 07/26/19 08/18/19 Rx furosemide 80 mg tablet 80 mg PO BID #180 tab 08/09/19 08/18/19 Rx probenecid 500 mg tablet 250 mg PO BID #90 tab 08/09/19 08/18/19 Rx duloxetine 20 mg capsule,delayed 40 mg PO DAILY #60 cap 08/10/19 08/18/19 Rx release budesonide-formoterol [Symbicort] 2 puff INHALATION BID 08/18/19 08/18/19 History calcitriol 0.25 mcg PO 3XWK 08/18/19 08/18/19 History metolazone 2.5 mg PO 5XWK 08/18/19 08/18/19 History Patient History Medical History Non-small cell lung cancer (Acute) Osteoarthritis (Acute) Obstructive sleep apnea (Acute) Solitary thyroid nodule (Acute) Type 2 diabetes mellitus with stage 3 chronic kidney disease, without long-term current use of insulin (Acute) Urine, incontinence, stress female (Acute) Vitamin D deficiency (Acute) Hypertension (Chronic) Chemotherapy induced nausea and vomiting Diabetes (Chronic) Emphysema lung (Chronic) GERD (gastroesophageal reflux disease) (Chronic) Hyponatremia (Chronic) Paroxysmal atrial fibrillation (Chronic) Anxiety Asthma Atrial fibrillation on xarelto---follows with Dr. Wright Chronic back pain Chronic kidney disease, stage 3 (moderate) Chronic obstructive pulmonary disease inhalers Depression Diabetes mellitus, type 2 no meds Enlarged thyroid gland just watching GERD (gastroesophageal reflux disease) Hx of gastric ulcer Hyperlipidemia Lung cancer, lower lobe 2017--left--sx, chemo On anticoagulant therapy On home oxygen therapy 2L n/c continuous Sleep apnea CPAP with 2L Surgical History History of appendectomy History of bronchoscopy 2016 History of cardiac cath 11/2017 @ [facility]--no stents History of cholecystectomy History of colonoscopy History of dilatation and curettage History of lobectomy of lung lower left lobe 2017 @ [facility] History of open reduction and internal fixation (ORIF) procedure R upper thigh x2--pins/rods in place History of tooth extraction all teeth History of total left knee replacement (TKR) History of total right knee replacement (TKR) Family History Sister Family history of reaction to anesthesia "had an allergic reaction", not sure what happened Mother Family history of diabetes mellitus Grandmother Family history of diabetes mellitus maternal Family/Other Family history of diabetes mellitus maternal uncle/maternal aunts Family/Other Family hx of colon cancer paternal cousin Social History Preferred Language: Turkmen Communication Ability: Effective Through Operator Required: No Beliefs That Will Affect Care: None Current Living Situation: Alone Feels Safe at Home: Yes Smoking Status: Former smoker Second Hand Exposure: No ; Hx Alcohol Use: No Hx Substance Use: No Review of Systems Review of Systems: All systems reviewed & are unremarkable except as noted in HPI & below Physical Exam Constitutional: WD/WN, vitals as above well developed and well nourished; no acute distress Eyes: PERRL, conjunctivae normal, anicteric sclerae ENMT: external ear and nose normal, oropharynx normal Ears: no hearing impairment Neck: trachea midline Respiratory: normal respiratory effort, lungs clear to auscultation no cough Auscultation: no crackles, no rales and no wheezes Cardiovascular: Rate/Rhythm: + irregularly irregular Heart Sounds: normal S1 and normal S2 Extremities: no edema Gastrointestinal (Abdomen): normal bowel sounds, soft, nontender, no hepatosplenomegaly Percussion/Palpation: abdomen nontender, no guarding and abdomen not rigid Musculoskeletal: Extremities: extremities normal to inspection Gait: normal gait Skin: no rashes, warm and dry Neurologic: moves all extremities and awake Psychiatric: A+Ox3, euthymic affect Results & Data Vital Signs (Past 12 Hours) Vital Signs Temp Pulse Pulse Resp BP Pulse Ox 08/19/19 07:52 36.7 C 59 L 18 105/47 L 99 08/19/19 03:06 37.1 C 59 L 18 102/44 L 97 08/18/19 23:58 61 08/18/19 23:28 36.9 C 61 18 102/44 L 99 PG Care Time/CCT Total # of Minutes Spent Total Time Spent with Patient: Total time spent is greater than 50% in coordination of care (as documented) at patient's floor/unit and/or counseling patient:
[2019-08-19] MEDS: INCRUSE ELLIPTA~ORDER AWAITING ACTION SCH (11:24)
--- NOTE | 2019-08-19 11:53 | Cardiology Consultation ---
Date of Consultation August 19, 2019 Assessment & Plan (1) CHF exacerbation: Suspect the patient is experiencing acute on chronic diastolic CHF. We have discussed importance of sliding-scale diuretics should she gained significant weight as she did leading up to this admission. Diuretic management per Dr. Upton. Echocardiogram pending. (2) Paroxysmal atrial fibrillation: The patient is paroxysm of atrial fibrillation are asymptomatic. She is tolerating rate control and long-term anticoagulation without difficulty. (3) Hypertension: Excellent control on current medical regimen. (4) Hyperlipidemia: Continue atorvastatin. History of Present Illness Attending Physician: Sukhdev Pitt MD History of Present Illness Mrs. Schilling is a 64-year-old female admitted yesterday with acute on chronic diastolic CHF. This consultation was ordered to assist in her management. Of note, the patient typically follows with Dr. Wright in the outpatient setting. The patient was in usual state of health until approximately 5 days prior to presentation. She began to note progressive exertional dyspnea, lower extremity edema, and profound fatigue. The patient does follow daily weights at home and notes her weight increased from 245 pounds up to 260 pounds. She did not take additional diuretics. The patient has not experienced any exertional angina pectoris. She further denies syncope, presyncope, PND, orthopnea, and claudication. The patient does not experience symptoms with her atrial fibrillation. She specifically denies palpitations. She is tolerating rate control and long-term anticoagulation without difficulty. The patient was diagnosed with CML back in April. She is currently receiving Sprycel therapy. Past medical and surgical history 1. Hypertension 2. Hypercholesterolemia 3. Paroxysmal atrial fibrillation 4. Diabetes mellitus 5. COPD 6. Chronic renal failure 7. GERD 8. History of gastric ulcer 9. Obesity 10. Obstructive sleep apnea 11. DJD 12. Vitamin-D deficiency 13. Anxiety/depression 14. Gout 15. Non-small cell lung carcinoma 16. Left lower lobectomy-December 2016 17. CML-April 2019 18. Chronic low back pain 19. Appendectomy 20. Cholecystectomy 21. D&C 22. ORIF right femur 23. Bilateral TKR Social history No tobacco or alcohol Family history Noncontributory Review of systems A 10 point review of systems was negative except for that described above. Allergies Allergy/AdvReac Type Severity Reaction Status Date / Time diltiazem Allergy Severe SHORTNESS Verified 08/18/19 14:00 OF BREATH AND SWELLING OF HANDS AND FACE adhesive Allergy Mild BLISTERS Verified 08/18/19 14:00 latex Allergy Mild RASH Verified 08/18/19 14:00 indomethacin Allergy Unknown per pulm Verified 08/18/19 14:00 note Penicillins Allergy Unknown WELTS IN Verified 08/18/19 14:00 MOUTH AND SPREAD TO BODY codeine AdvReac Mild N&V&GI PAIN Verified 08/18/19 14:00 paroxetine AdvReac Mild GI SYMPTOMS Verified 08/18/19 14:00 varenicline AdvReac Mild GI SYMPTOMS Verified 08/18/19 14:00 Home Medications Home Medications Medication Instructions Recorded Confirmed Type albuterol sulfate [Ventolin HFA] 2 puff INHALATION QID PRN 09/01/18 08/18/19 History atorvastatin 20 mg PO HS 09/01/18 08/18/19 History cholecalciferol (vitamin D3) 2,000 unit PO QAM 09/01/18 08/18/19 History [Vitamin D3] docusate sodium [Stool Softener] 100 mg PO BID PRN 09/01/18 08/18/19 History fluticasone propionate [Flonase 1 spray INTRANASAL BID PRN 09/01/18 08/18/19 History Allergy Relief] loratadine 10 mg PO QAM PRN 09/01/18 08/18/19 History omeprazole 20 mg PO BID 09/01/18 08/18/19 History potassium chloride 20 meq PO BID 09/01/18 08/18/19 History rivaroxaban [Xarelto] 20 mg PO HS 09/01/18 08/18/19 History magnesium oxide 400 mg (241.3 mg 400 mg PO DAILY #30 tab 04/07/19 08/18/19 Rx magnesium) tablet montelukast 10 mg tablet 10 mg PO DAILY #30 tab 04/19/19 08/18/19 Rx metoprolol succinate ER 100 mg 100 mg PO TID #270 tab 06/16/19 08/18/19 Rx tablet,extended release 24 hr flecainide 100 mg tablet 100 mg PO TID tab 06/22/19 08/18/19 History spironolactone 50 mg tablet 50 mg PO BID tab 06/22/19 08/18/19 History umeclidinium 62.5 mcg/actuation 1 puffs INH DAILY 06/22/19 08/18/19 History blister powder for inhalation diphenhydramine 25 mg capsule 25 mg PO HS PRN cap 06/28/19 08/18/19 History dasatinib 100 mg tablet 100 mg PO DAILY 07/07/19 08/18/19 History tramadol 50 mg tablet 100 mg PO TID PRN #180 tab 07/26/19 08/18/19 Rx furosemide 80 mg tablet 80 mg PO BID #180 tab 08/09/19 08/18/19 Rx probenecid 500 mg tablet 250 mg PO BID #90 tab 08/09/19 08/18/19 Rx duloxetine 20 mg capsule,delayed 40 mg PO DAILY #60 cap 08/10/19 08/18/19 Rx release budesonide-formoterol [Symbicort] 2 puff INHALATION BID 08/18/19 08/18/19 History calcitriol 0.25 mcg PO 3XWK 08/18/19 08/18/19 History metolazone 2.5 mg PO 5XWK 08/18/19 08/18/19 History Patient History Medical History Non-small cell lung cancer (Acute) Osteoarthritis (Acute) Obstructive sleep apnea (Acute) Solitary thyroid nodule (Acute) Type 2 diabetes mellitus with stage 3 chronic kidney disease, without long-term current use of insulin (Acute) Urine, incontinence, stress female (Acute) Vitamin D deficiency (Acute) Hypertension (Chronic) Chemotherapy induced nausea and vomiting Diabetes (Chronic) Emphysema lung (Chronic) GERD (gastroesophageal reflux disease) (Chronic) Hyponatremia (Chronic) Paroxysmal atrial fibrillation (Chronic) Anxiety Asthma Atrial fibrillation on xarelto---follows with Dr. Wright Chronic back pain Chronic kidney disease, stage 3 (moderate) Chronic obstructive pulmonary disease inhalers Depression Diabetes mellitus, type 2 no meds Enlarged thyroid gland just watching GERD (gastroesophageal reflux disease) Hx of gastric ulcer Hyperlipidemia Lung cancer, lower lobe 2017--left--sx, chemo On anticoagulant therapy On home oxygen therapy 2L n/c continuous Sleep apnea CPAP with 2L Surgical History History of appendectomy History of bronchoscopy 2016 History of cardiac cath 11/2017 @ [facility]--no stents History of cholecystectomy History of colonoscopy History of dilatation and curettage History of lobectomy of lung lower left lobe 2017 @ [facility] History of open reduction and internal fixation (ORIF) procedure R upper thigh x2--pins/rods in place History of tooth extraction all teeth History of total left knee replacement (TKR) History of total right knee replacement (TKR) Family History Sister Family history of reaction to anesthesia "had an allergic reaction", not sure what happened Mother Family history of diabetes mellitus Grandmother Family history of diabetes mellitus maternal Family/Other Family history of diabetes mellitus maternal uncle/maternal aunts Family/Other Family hx of colon cancer paternal cousin Social History Preferred Language: Liberian Communication Ability: Effective Pharmacy Intern Required: No Beliefs That Will Affect Care: None Current Living Situation: Alone Feels Safe at Home: Yes Smoking Status: Former smoker Second Hand Exposure: No ; Hx Alcohol Use: No Hx Substance Use: No Physical Exam Physical Exam: In general this is a well-developed well-nourished obese white female in no acute distress. HEENT exam is negative. Neck is supple with full carotid upstrokes. There are no carotid bruits. Jugular venous pressure is flat at 90. There is no thyromegaly. Cardiovascular exam reveals a regular rhythm with a normal S1 and S2. No S3, S4, or murmurs are noted. Lungs are clear without rales, rhonchi, or wheezes. Abdomen is soft and nontender without bruits. Extremities reveal intact radial artery pulses bilaterally. There is no peripheral edema. Tophi noted diffusely across the hands. Results & Data Vital Signs (Past 12 Hours) Vital Signs Temp Pulse Pulse Resp BP Pulse Ox 08/19/19 08:00 59 L 08/19/19 07:52 36.7 C 59 L 18 105/47 L 99 08/19/19 03:06 37.1 C 59 L 18 102/44 L 97 08/18/19 23:58 61 Laboratory Results CBC notes a hemoglobin of 7.6, hematocrit 24.8, white count 8.58, and a platelet count of [id number]. Electrolytes noted sodium of 131, potassium 3.9, chloride 94, bicarb 29, BUN 47, creatinine 1.8, and glucose of 112. Troponin I levels less than 0.015. BNP is 4929. Diagnostic Findings EKG notes atrial fibrillation with low voltage throughout and nonspecific ST and T-wave abnormality. CT scan of the head is negative. Chest x-ray notes cardiomegaly and evidence of congestive failure. PG Care Time/CCT Total # of Minutes Spent Total Time Spent with Patient: Total time spent is greater than 50% in coordination of care (as documented) at patient's floor/unit and/or counseling patient:
--- NOTE | 2019-08-19 12:41 | Hospitalist Progress Note ---
Date of Service August 19, 2019 Assessment & Plan (1) Severe anemia: Severe anemia is most likely due to multifactorial issues such as CML, recent chemotherapy, possibly GI blood loss, kidney failure.Hemoglobin 6.9. Plan to give 1 unit of PRBCs. Reassess for volume overload. Fecal occult blood pending. Present on Admission?: Yes (2) Acute kidney injury: Appreciate nephrology recommendation. Recommended holding all diuretics for now. Repeat renal panel in a.m. Check iron profile, B12 and folate. Watchful waiting to restart diuretics. Avoid nephrotoxic agents. Present on Admission?: Yes (3) CHF exacerbation: Continue admits to PCU on telemetry. Plan to restrict p.o. free fluid to 1200 cc Hold Lasix for now due to kidney insufficiency. Follow-up echocardiogram. Strict in and out. Daily weight Low-sodium diet. Appreciate cardiology recommendations. Consult hematology oncology. Appreciate nephrology recommendations Follow-up labs daily. Replenish electrolytes. Trend down BNP DVT prophylaxis: Patient is on anticoagulation with Xarelto CODE STATUS full code. Present on Admission?: Yes (4) Type 2 diabetes mellitus with stage 3 chronic kidney disease, without long- term current use of insulin: Accu-Cheks before meals and at bedtime. Patient is not on any glycemic control at home. A1c 6.5 in January 2019. Will repeat A1c. Diabetes type 2 controlled with diet. Present on Admission?: Yes (5) Hypertension: Pt is acute CHF exacerbation. Strict in and out Daily weight Hold Lasix for now and metolazone as per recommendation of the nephrology. Low-salt diet Monitor electrolytes and replenish as needed Present on Admission?: Yes (6) Paroxysmal atrial fibrillation: Patient goes in and out sinus rhythm. Continue controlling rate with metoprolol succinate 100 mg p.o. 3 times daily. Follow-up with TTE Appreciate cardiology recommendations. Present on Admission?: Yes (7) Non-small cell lung cancer: Stable now, follow-up with oncology. Present on Admission?: Yes (8) CML (chronic myelocytic leukemia): Stable now. Placed consult for hematology oncology. Present on Admission?: Yes (9) Hyperlipidemia: Lipid panel pending. Continue atorvastatin 20 mg p.o. nightly. Present on Admission?: Yes Subjective Patient seen and examined at the bedside. Comfortably resting in the bed. Patient has history of CML currently on chemotherapy patient. Patient is on 2 L of oxygen. Patient is compliant with p.o. fluid restriction to 1200 cc daily for congestive heart failure. Patient denies fever chills chest pain shortness of breath abdominal pain frequency urgency hemoptysis hematuria dysuria. Review of Systems Constitutional: + body aches, + fatigue, + malaise and + weakness Respiratory: + cough, + dyspnea and + dyspnea on exertion Cardiovascular: + dyspnea, + dyspnea at rest, + dyspnea on exertion and + edema Physical Exam Constitutional: WD/WN, vitals as above well developed and + obese Eyes: PERRL, conjunctivae normal, anicteric sclerae ENMT: external ear and nose normal, oropharynx normal Neck: trachea midline, no thyromegaly Respiratory: normal respiratory effort, lungs clear to auscultation Cardiovascular: Rate/Rhythm: + irregularly irregular Gastrointestinal (Abdomen): normal bowel sounds, soft, nontender, no hepatosplenomegaly Musculoskeletal: no cyanosis or clubbing, extremities motor strength 5/5 Skin: no rashes, warm and dry Neurologic: patellar DTR's 2+ bilat, sensation intact Psychiatric: A+Ox3, euthymic affect Genitourinary: no vaginal lesions, no adnexal mass Lymphatic: no cervical or axillary lymphadenopathy Results & Data Vital Signs (Past 12 Hours) Vital Signs Temp Pulse Pulse Resp BP Pulse Ox 08/19/19 11:53 36.7 C 63 20 106/47 L 98 08/19/19 08:00 59 L 08/19/19 07:52 36.7 C 59 L 18 105/47 L 99 08/19/19 03:06 37.1 C 59 L 18 102/44 L 97 PG Care Time/CCT Total # of Minutes Spent Total Time Spent with Patient: Total time spent is greater than 50% in coordination of care (as documented) at patient's floor/unit and/or counseling patient:
[2019-08-19 12:46] LABS: Hematocrit (blood only) 22.5 % (37-47); Hemoglobin 6.9 g/dL (12.0-16.0); Mean Corpuscular Hgb Conc 30.7 g/dL (32-36); Mean Corpuscular Volume 78.4 fL (80-100); Mean Platelet Volume 8.5 fL (7.4-10.4); Nucleated RBC # (auto) 0.03 K/uL (0-0); Nucleated RBC % (auto) 0.5 %; Platelet Count 248 K/uL (130-400); RDW Coefficient of Variation 17.9 % (11.5-14.5); RDW Standard Deviation 51.2 fL (36.4-46.3); Red Blood Count 2.87 M/uL (4.2-5.4)
[2019-08-19 12:56] LABS: Albumin Level 2.6 gm/dl (3.4-5.0); BUN Creatinine Ratio 23.9 (10-20); Calcium 8.7 mg/dl (8.5-10.1); Creatinine Clr Calc Pharmacy 40.7 ml/min; Est GFR (African American) 36.3; Est GFR (Non-African American) 31.3; Potassium 3.1 mmol/L (3.5-5.1)
[2019-08-19] MEDS ORDERED: SODIUM CHLORIDE 0.9% 250 ML IV PRN (13:00)
[2019-08-19 13:01] LABS: Albumin Globulin Ratio 0.6 (0.9-2); Bilirubin,Total 0.5 mg/dl (0.2-1); Globulin 4.1 gm/dl (2.5-4.0); Total Protein 6.7 gm/dl (6.4-8.2)
[2019-08-19 13:02] LABS: Anisocytosis Present; Basophils # (auto) 0.02 K/uL (0-0.2); Basophils % (auto) 0.3 %; Eosinophils # (auto) 0.07 K/uL (0-0.5); Eosinophils % (auto) 1.1 %; Hypochromasia Present; Immature Granulocytes # (auto) 0.02 K/uL (0.00-0.02); Immature Granulocytes % (auto) 0.3 %; Lymphocytes # (auto) 1.05 K/uL (1.2-3.4); Lymphocytes % (auto) 15.9 %; Monocytes % (auto) 12.1 %; Neutrophils # (auto) 4.64 K/uL (1.4-6.5); Neutrophils % (auto) 70.3 %
--- NOTE | 2019-08-19 17:10 | Oncology Consultation ---
Date of Consultation August 19, 2019 Assessment & Plan (1) Fluid overload: I think that Ms. Schilling's edema is related to the Sprycel. Edema and resulting volume overload are a well-characterized toxicity of this medication. It can sometimes even lead to pulmonary edema and CHF-like symptoms, though it is more commonly associated with pedal edema and pleural effusions. This medication will be critical in controlling her CML and is a drug she may need to be on for the rest of her life. As a result, I would favor trying to optimize her cardiac and renal issues and then retrying treatment, possibly at a reduced dose. Once her cardiac issues are stabilized, we will discuss restarting the Sprycel with very close follow up with cardiology, nephrology, and me. Present on Admission?: Yes (2) Severe anemia: I am not entirely clear why she is so anemic. It may be a treatment related issue, as it has gotten worse since starting the Dasatinib. I would check her stool to make sure she is not bleeding anywhere. I would also transfuse her for a hemoglobin <8. Present on Admission?: Yes History of Present Illness Reason for Consultation: CHF exacerbation/GIOVANA CML Lung cancer Attending Physician: Sukhdev Pitt MD History of Present Illness Ms. Schilling is my patient. She was treated in 2017 for a stage IB squamous cell lung cancer. She underwent surgery followed by attempted adjuvant chemo, though she tolerated only 2 cycles. She has done well since then, with no evidence of recurrence. Starting in January of 2019, she had a high WBC count with a differential suggestive of chronic myelogenous leukemia. I confirmed the diagnosis with PCR for BCR/ABL and she started Sprycel (dasatinib) in May. She has had a complete hematologic response so far, though we have not yet gotten to her first quantitative PCR to assess her molecular response. Since starting treatment, she's seen an increase in her pedal edema. She was managing this at home with Lasix but in recent weeks has been increasing her dose. Prior to coming to the ER, she had been has high as 80 mg BID. This diuresis apparently led to her losing 13 kg of body weight since my last visit with her in mid- June. She called my office about a week ago complaining of fatigue and dry heaves. Because she was feeling so unwell, we suggested she try holding her Sprycel for a week. She presented to the ER about a week later after a series of falls at home. She was found to have an GIOVANA with her creatinine increasing from 1.2 to 1.8. Imaging also suggested cardiomegaly with pulmonary vascular congestion and interstitial coarsening suggestive of pulmonary edema. She is feeling better now and was scheduled for an echo today. It revealed some concentric LVH and some grade II diastolic dysfunction, but a perserved EF and no regional wall motion abnormalities. She is feeling better after more diuresis and is negative another 1.4L with improvement in her creatinine. Allergies Allergy/AdvReac Type Severity Reaction Status Date / Time diltiazem Allergy Severe SHORTNESS Verified 08/18/19 14:00 OF BREATH AND SWELLING OF HANDS AND FACE adhesive Allergy Mild BLISTERS Verified 08/18/19 14:00 latex Allergy Mild RASH Verified 08/18/19 14:00 indomethacin Allergy Unknown per pulm Verified 08/18/19 14:00 note Penicillins Allergy Unknown WELTS IN Verified 08/18/19 14:00 MOUTH AND SPREAD TO BODY nut - unspecified Allergy Verified 08/19/19 12:09 peanut Allergy Verified 08/19/19 12:10 codeine AdvReac Mild N&V&GI PAIN Verified 08/18/19 14:00 paroxetine AdvReac Mild GI SYMPTOMS Verified 08/18/19 14:00 varenicline AdvReac Mild GI SYMPTOMS Verified 08/18/19 14:00 Home Medications Home Medications Medication Instructions Recorded Confirmed Type albuterol sulfate [Ventolin HFA] 2 puff INHALATION QID PRN 09/01/18 08/18/19 History atorvastatin 20 mg PO HS 09/01/18 08/18/19 History cholecalciferol (vitamin D3) 2,000 unit PO QAM 09/01/18 08/18/19 History [Vitamin D3] docusate sodium [Stool Softener] 100 mg PO BID PRN 09/01/18 08/18/19 History fluticasone propionate [Flonase 1 spray INTRANASAL BID PRN 09/01/18 08/18/19 History Allergy Relief] loratadine 10 mg PO QAM PRN 09/01/18 08/18/19 History omeprazole 20 mg PO BID 09/01/18 08/18/19 History potassium chloride 20 meq PO BID 09/01/18 08/18/19 History rivaroxaban [Xarelto] 20 mg PO HS 09/01/18 08/18/19 History magnesium oxide 400 mg (241.3 mg 400 mg PO DAILY #30 tab 04/07/19 08/18/19 Rx magnesium) tablet montelukast 10 mg tablet 10 mg PO DAILY #30 tab 04/19/19 08/18/19 Rx metoprolol succinate ER 100 mg 100 mg PO TID #270 tab 06/16/19 08/18/19 Rx tablet,extended release 24 hr flecainide 100 mg tablet 100 mg PO TID tab 06/22/19 08/18/19 History spironolactone 50 mg tablet 50 mg PO BID tab 06/22/19 08/18/19 History umeclidinium 62.5 mcg/actuation 1 puffs INH DAILY 06/22/19 08/18/19 History blister powder for inhalation diphenhydramine 25 mg capsule 25 mg PO HS PRN cap 06/28/19 08/18/19 History dasatinib 100 mg tablet 100 mg PO DAILY 07/07/19 08/18/19 History tramadol 50 mg tablet 100 mg PO TID PRN #180 tab 07/26/19 08/18/19 Rx furosemide 80 mg tablet 80 mg PO BID #180 tab 08/09/19 08/18/19 Rx probenecid 500 mg tablet 250 mg PO BID #90 tab 08/09/19 08/18/19 Rx duloxetine 20 mg capsule,delayed 40 mg PO DAILY #60 cap 08/10/19 08/18/19 Rx release budesonide-formoterol [Symbicort] 2 puff INHALATION BID 08/18/19 08/18/19 History calcitriol 0.25 mcg PO 3XWK 08/18/19 08/18/19 History metolazone 2.5 mg PO 5XWK 08/18/19 08/18/19 History Patient History Medical History Non-small cell lung cancer (Acute) Osteoarthritis (Acute) Obstructive sleep apnea (Acute) Solitary thyroid nodule (Acute) Type 2 diabetes mellitus with stage 3 chronic kidney disease, without long-term current use of insulin (Acute) Urine, incontinence, stress female (Acute) Vitamin D deficiency (Acute) Hypertension (Chronic) Chemotherapy induced nausea and vomiting Diabetes (Chronic) Emphysema lung (Chronic) GERD (gastroesophageal reflux disease) (Chronic) Hyponatremia (Chronic) Paroxysmal atrial fibrillation (Chronic) Anxiety Asthma Atrial fibrillation on xarelto---follows with Dr. Wright Chronic back pain Chronic kidney disease, stage 3 (moderate) Chronic obstructive pulmonary disease inhalers Depression Diabetes mellitus, type 2 no meds Enlarged thyroid gland just watching GERD (gastroesophageal reflux disease) Hx of gastric ulcer Hyperlipidemia Lung cancer, lower lobe 2017--left--sx, chemo On anticoagulant therapy On home oxygen therapy 2L n/c continuous Sleep apnea CPAP with 2L Surgical History History of appendectomy History of bronchoscopy 2016 History of cardiac cath 11/2017 @ [facility]--no stents History of cholecystectomy History of colonoscopy History of dilatation and curettage History of lobectomy of lung lower left lobe 2017 @ [facility] History of open reduction and internal fixation (ORIF) procedure R upper thigh x2--pins/rods in place History of tooth extraction all teeth History of total left knee replacement (TKR) History of total right knee replacement (TKR) Family History Sister Family history of reaction to anesthesia "had an allergic reaction", not sure what happened Mother Family history of diabetes mellitus Grandmother Family history of diabetes mellitus maternal Family/Other Family history of diabetes mellitus maternal uncle/maternal aunts Family/Other Family hx of colon cancer paternal cousin Social History Preferred Language: Faroese Communication Ability: Effective Support Engineer Required: No Beliefs That Will Affect Care: None Current Living Situation: Alone Feels Safe at Home: Yes Smoking Status: Former smoker Second Hand Exposure: No ; Hx Alcohol Use: No Hx Substance Use: No Review of Systems Review of Systems: All systems reviewed & are unremarkable except as noted in HPI & below Respiratory: + cough and + dyspnea Cardiovascular: + edema; no chest pain Physical Exam Constitutional: comfortable; no acute distress Eyes: + anicteric sclerae ENMT: external ear and nose normal, oropharynx normal Respiratory: normal respiratory effort Auscultation: lungs clear to auscultation bilaterally Cardiovascular: Rate/Rhythm: + irregularly irregular Heart Sounds: no murmur Extremities: no edema Gastrointestinal (Abdomen): Inspection/Auscultation: normal bowel sounds Percussion/Palpation: abdomen soft; abdomen nontender Skin: no rashes, warm and dry Psychiatric: A+Ox3, euthymic affect Results & Data Vital Signs (Past 12 Hours) Vital Signs Temp Pulse Pulse Resp BP BP Pulse Ox 08/19/19 16:26 36.9 C 61 18 111/56 L 97 08/19/19 16:24 36.8 C 62 13 111/56 L 96 08/19/19 16:00 61 16 123/49 L 96 08/19/19 15:30 58 L 14 113/51 L 95 08/19/19 15:17 61 14 119/52 L 98 08/19/19 15:15 62 21 98 08/19/19 15:00 36.6 C 63 14 135/61 98 08/19/19 14:45 73 16 103/42 L 85 L 08/19/19 14:30 36.7 C 62 20 117/51 L 98 08/19/19 14:28 62 15 99/38 L 99 08/19/19 14:21 36.6 C 61 16 102/55 L 97 08/19/19 14:16 61 16 97 08/19/19 14:14 64 18 91/42 L 95 08/19/19 14:11 36.4 C L 63 18 91/42 L 95 08/19/19 14:00 62 08/19/19 13:47 94 H 08/19/19 13:31 62 08/19/19 13:15 64 08/19/19 13:00 60 08/19/19 12:45 68 08/19/19 12:30 61 08/19/19 12:15 64 08/19/19 12:00 61 08/19/19 11:53 36.7 C 63 20 106/47 L 98 08/19/19 11:45 60 08/19/19 11:30 59 L 08/19/19 11:15 59 L 08/19/19 11:00 64 08/19/19 10:45 61 08/19/19 10:30 63 08/19/19 10:15 63 08/19/19 10:00 59 L 08/19/19 09:45 63 08/19/19 09:30 60 08/19/19 09:15 60 08/19/19 09:00 60 08/19/19 08:45 66 08/19/19 08:30 60 08/19/19 08:15 57 L 08/19/19 08:00 59 L 08/19/19 07:52 36.7 C 59 L 18 105/47 L 99 08/19/19 07:45 56 L 08/19/19 07:30 57 L 08/19/19 07:15 58 L 08/19/19 07:00 60 08/19/19 06:45 59 L 08/19/19 06:30 59 L 08/19/19 06:15 59 L 08/19/19 06:00 60 08/19/19 05:45 59 L 08/19/19 05:30 63 08/19/19 05:15 60 Laboratory Results Abnormal Labs 08/18/19 08/18/19 08/18/19 11:22 11:22 11:22 RBC 3.16 L Hgb 7.6 L Hct 24.8 L MCV 78.5 L MCH 24.1 L MCHC 30.6 L RDW Std Deviation 50.5 H RDW Coeff of Bruce 17.8 H Immature Gran # (Auto) 0.04 H Lymph # (Auto) Norton # (Auto) 0.89 H Absolute Nucleated RBC 0.03 H PT INR APTT Sodium 131 L Potassium Chloride 94 L BUN 47 H Creatinine 1.80 H BUN/Creatinine Ratio 26.0 H Glucose 112 H POC Glucose NT-Pro-B Natriuret Pep 4929 H Albumin 3.0 L Globulin Albumin/Globulin Ratio Urine Protein U Epithel Cells (Auto) Urine Osmolality Crossmatch 08/18/19 08/18/19 08/18/19 12:40 12:45 12:47 RBC Hgb Hct MCV MCH MCHC RDW Std Deviation RDW Coeff of Bruce Immature Gran # (Auto) Lymph # (Auto) Norton # (Auto) Absolute Nucleated RBC PT 16.4 H INR 1.7 H APTT 41.7 H Sodium Potassium Chloride BUN Creatinine BUN/Creatinine Ratio Glucose POC Glucose NT-Pro-B Natriuret Pep Albumin Globulin Albumin/Globulin Ratio Urine Protein 1+ H U Epithel Cells (Auto) 10-20 H Urine Osmolality Crossmatch See Detail 08/18/19 08/19/19 08/19/19 20:40 11:01 11:01 RBC 2.87 L Hgb 6.9 L* Hct 22.5 L MCV 78.4 L MCH 24.0 L MCHC 30.7 L RDW Std Deviation 51.2 H RDW Coeff of Bruce 17.9 H Immature Gran # (Auto) Lymph # (Auto) 1.05 L Norton # (Auto) 0.80 H Absolute Nucleated RBC 0.03 H PT INR APTT Sodium 132 L Potassium 3.1 L D Chloride 97 L BUN 40 H Creatinine 1.68 H BUN/Creatinine Ratio 23.9 H Glucose 119 H POC Glucose 120 H NT-Pro-B Natriuret Pep 4778 H Albumin 2.6 L Globulin 4.1 H Albumin/Globulin Ratio 0.6 L Urine Protein U Epithel Cells (Auto) Urine Osmolality Crossmatch 08/19/19 14:15 RBC Hgb Hct MCV MCH MCHC RDW Std Deviation RDW Coeff of Bruce Immature Gran # (Auto) Lymph # (Auto) Norton # (Auto) Absolute Nucleated RBC PT INR APTT Sodium Potassium Chloride BUN Creatinine BUN/Creatinine Ratio Glucose POC Glucose NT-Pro-B Natriuret Pep Albumin Globulin Albumin/Globulin Ratio Urine Protein U Epithel Cells (Auto) Urine Osmolality 308 L Crossmatch
[2019-08-19] MEDS: FAMOTIDINE 20 MG TAB PO SCH (21:15)
[2019-08-19] MEDS: RIVAROXABAN 20 MG TAB PO SCH (21:16)
[2019-08-19] MEDS: ATORVASTATIN 20 MG TAB PO SCH (21:17)
[2019-08-20 06:54] LABS: Basophils # (auto) 0.01 K/uL (0-0.2); Basophils % (auto) 0.1 %; Eosinophils # (auto) 0.11 K/uL (0-0.5); Eosinophils % (auto) 1.6 %; Hematocrit (blood only) 23.6 % (37-47); Hemoglobin 7.3 g/dL (12.0-16.0); Immature Granulocytes # (auto) 0.04 K/uL (0.00-0.02); Immature Granulocytes % (auto) 0.6 %; Lymphocytes # (auto) 1.23 K/uL (1.2-3.4); Mean Corpuscular Hemoglobin 24.4 pg (25-34); Mean Corpuscular Hgb Conc 30.9 g/dL (32-36); Mean Corpuscular Volume 78.9 fL (80-100); Mean Platelet Volume 8.5 fL (7.4-10.4); Monocytes # (auto) 0.74 K/uL (0.11-0.59); Monocytes % (auto) 10.9 %; Neutrophils # (auto) 4.69 K/uL (1.4-6.5); Neutrophils % (auto) 68.8 %; Platelet Count 235 K/uL (130-400); RDW Coefficient of Variation 17.5 % (11.5-14.5); RDW Standard Deviation 50.3 fL (36.4-46.3); Red Blood Count 2.99 M/uL (4.2-5.4); White Blood Count 6.82 K/uL (4.8-10.8)
--- NOTE | 2019-08-20 07:18 | Hospitalist Progress Note ---
Date of Service August 20, 2019 Assessment & Plan (1) Severe anemia: Fecal occult blood negative. Hemoglobin this morning was seven-point 1:03 unit of blood. Given another unit of blood and resulting hemoglobin is 8.5. Not clear origin of severe anemia. Patient is followed up with hematology oncology Dr. Lucero. Iron study-anemia of chronic disease with low iron, transferrin normal 261, but iron saturation low only 6 ferritin 26.2 reassess for volume overload. (2) Acute kidney injury: Appreciate nephrology recommendation. Recommended holding all diuretics for now. Repeat renal panel in a.m. Check iron profile, B12 and folate. Watchful waiting to restart diuretics. Avoid nephrotoxic agents. (3) CHF exacerbation: Continue admits to PCU on telemetry. Plan to restrict p.o. free fluid to 1200 cc Appreciate nephrology recommendations, renal function improving, volume status acceptable. Resume Spironolactone and 50 mg twice a day and continue on light Lasix 40 mg daily on discharge. Patient would need to have outpatient renal panel monitoring 2 to 3 days after the discharge and lab results should be followed to her primary fire protection designer Dr. Molina in 2 to 3 weeks. Appreciate hematology oncology recommendations and understanding that her edema could be related to Sprycel for CML. Edema and resulting volume overload INR well-characterized toxicity of this medication. It can sometimes even lead to pulmonary edema and CHF-like symptoms though it is more commonly associated with pedal edema and pleural effusion. Dr. Lucero recommended to restart her Sprycel with very close follow-up with cardiology nephrology and himself and possibly in the reduced dose. Strict in and out. Daily weight Low-sodium diet. Appreciate cardiology recommendations. Follow-up labs daily. Replenish electrolytes. Trend down BNP DVT prophylaxis: Patient is on anticoagulation with Xarelto CODE STATUS full code. (4) Type 2 diabetes mellitus with stage 3 chronic kidney disease, without long- term current use of insulin: Accu-Cheks before meals and at bedtime. Patient is not on any glycemic control at home. A1c 6.5 in January 2019. Will repeat A1c. Diabetes type 2 controlled with diet. (5) Hypertension: Pt is acute CHF exacerbation. Resume Spironolactone at 50 mg twice a day and continue Lasix 40 mg daily on discharge. Appreciate nephrology recommendations Strict in and out Daily weight Low-salt diet Monitor electrolytes and replenish as needed (6) Paroxysmal atrial fibrillation: Patient goes in and out sinus rhythm. Continue controlling rate with metoprolol succinate 100 mg p.o. 3 times daily. TTE: Left ventricular systolic function is normal. No regional wall motion abnormalities noted. There is a borderline concentric left ventricular hypertrophy. Ejection fraction 55 to 60%. There is mild mitral regurgitation. There is mild tricuspid regurgitation. Appreciate cardiology recommendations. (7) Non-small cell lung cancer: Stable now, follow-up with oncology. (8) CML (chronic myelocytic leukemia): Stable now. Hematology oncology follows. (9) Hyperlipidemia: Lipid panel still pending.Continue atorvastatin 20 mg p.o. nightly. Subjective Patient seen and examined at the bedside. Comfortably resting in the bed. Reports feeling little bit better today. Patient has history of CML currently on chemotherapy Sprycel. Patient is on 2 L of oxygen. Patient is compliant with p.o. fluid restriction to 1200 cc daily for congestive heart failure. Patient denies fever chills chest pain shortness of breath abdominal pain frequency urgency hemoptysis hematuria dysuria. Review of Systems Review of Systems: All systems reviewed & are unremarkable except as noted in HPI & below Physical Exam Constitutional: WD/WN, vitals as above well developed and + obese Eyes: PERRL, conjunctivae normal, anicteric sclerae ENMT: external ear and nose normal, oropharynx normal Neck: trachea midline, no thyromegaly Respiratory: normal respiratory effort, lungs clear to auscultation Cardiovascular: Rate/Rhythm: + irregularly irregular Gastrointestinal (Abdomen): normal bowel sounds, soft, nontender, no hepatosplenomegaly Musculoskeletal: no cyanosis or clubbing, extremities motor strength 5/5 Skin: no rashes, warm and dry Neurologic: patellar DTR's 2+ bilat, sensation intact Psychiatric: A+Ox3, euthymic affect Genitourinary: no vaginal lesions, no adnexal mass Lymphatic: no cervical or axillary lymphadenopathy Results & Data Vital Signs (Past 12 Hours) Vital Signs Temp Pulse Pulse Resp BP Pulse Ox 08/20/19 03:43 37.1 C 65 18 111/55 L 98 08/19/19 23:42 37.3 C 64 18 101/46 L 98 08/19/19 23:05 62 08/19/19 19:57 36.9 C 69 18 100/44 L 99 PG Care Time/CCT Total # of Minutes Spent Total Time Spent with Patient: Total time spent is greater than 50% in coordination of care (as documented) at patient's floor/unit and/or counseling patient:
[2019-08-20 07:29] LABS: Albumin Level 2.4 gm/dl (3.4-5.0); BUN Creatinine Ratio 26.9 (10-20); Calcium 8.8 mg/dl (8.5-10.1); Creatinine Clr Calc Pharmacy 46.1 ml/min; Est GFR (African American) 44.1; Est GFR (Non-African American) 38.1; Potassium 3.3 mmol/L (3.5-5.1)
[2019-08-20 07:33] LABS: Albumin Globulin Ratio 0.6 (0.9-2); Bilirubin,Total 0.4 mg/dl (0.2-1); Ferritin 26.2 ng/ml (8-388); Globulin 4.1 gm/dl (2.5-4.0); Phosphorus 3.1 mg/dl (2.5-4.9); Total Protein 6.5 gm/dl (6.4-8.2)
[2019-08-20 07:35] LABS: Anisocytosis Present; Polychromasia 1+
[2019-08-20] MEDS ORDERED: SODIUM CHLORIDE 0.9% 250 ML IV PRN (07:48)
[2019-08-20] MEDS: TRAMADOL HCL 50 MG TABLET PO PRN ×2 (07:49→21:09)
[2019-08-20] MEDS: PROBENECID 500 MG TAB PO SCH ×2 (07:50→21:08)
[2019-08-20] MEDS: METOPROLOL SUCC 50MG EXT REL TAB PO SCH ×3 (07:50→21:09)
[2019-08-20] MEDS: CHOLECALCIFEROL 1,000 UNITS TAB PO SCH (07:50)
[2019-08-20] MEDS: DULOXETINE HCL 20 MG CAP PO SCH (07:50)
[2019-08-20] MEDS: MONTELUKAST SODIUM 10 MG TABLET PO SCH (07:51)
[2019-08-20] MEDS: FAMOTIDINE 20 MG TAB PO SCH (07:51)
[2019-08-20] MEDS: POTASSIUM CHLORIDE 20 MEQ TABCR PO SCH ×2 (07:51→21:08)
[2019-08-20] MEDS: MAGNESIUM OXIDE 400 MG TAB PO SCH (07:51)
[2019-08-20] MEDS: BUDESONIDE/FORMOTEROL FUMARATE 160/4.5 60 PUFFS/INHALER INH SCH ×2 (07:51→21:08)
[2019-08-20] MEDS ORDERED: DASATINIB PO SCH (09:00)
--- NOTE | 2019-08-20 11:04 | Nephrology Progress Note ---
Date of Service August 20, 2019 Assessment & Plan (1) Acute kidney injury: 64 yo F with stage 3A CKD, b/l cr 1.2-1.3 with h/o recurrent GIOVANA with volume depletion, admitted with SOB, weakness and inability to walk. Found to have GIOVANA, hyponatremia and pulmonary congestion on CXR. Received IV lasix and metolazone. Volume status improved significantly. Clinically she seems euvolemic. Renal function improving, volume status acceptable, Neck negative. --resume spironolactone at 50 milligram twice a day and continue on Lasix 40 milligram daily on discharge --okay to be discharged if clinically stable, should have outpatient and renal panel monitoring 2-3 days after discharge and lab result should be followed to her primary market research interviewer Dr. Molina and she should have a follow-up with Dr. Molina in next 2-3 weeks Will follow (2) Fluid overload: (3) CML (chronic myelocytic leukemia): (4) CKD (chronic kidney disease): (5) Hyponatremia: Subjective Marycarmen Was not explain her this morning. Overall feeling better. Has been negative off of diuretics since yesterday afternoon 1.5 liter negative. Renal function improved. Blood pressure stable. Review of Systems Review of Systems: All systems reviewed & are unremarkable except as noted in HPI & below Physical Exam Constitutional: well developed and well nourished; no acute distress Respiratory: normal respiratory effort, lungs clear to auscultation Cardiovascular: RRR, no murmur, no edema Neurologic: moves all extremities and awake; not confused Psychiatric: A+Ox3, euthymic affect Results & Data Vital Signs (Past 12 Hours) Vital Signs Temp Pulse Pulse Resp BP BP Pulse Ox 08/20/19 10:30 66 19 103/51 L 99 08/20/19 10:15 36.2 C L 69 18 96 08/20/19 10:00 68 21 111/46 L 98 08/20/19 09:45 36.2 C L 68 15 110/56 L 97 08/20/19 09:38 68 11 L 114/42 L 98 08/20/19 09:35 36.4 C L 104/47 L 99 08/20/19 09:32 37.2 C 69 104/47 L 99 08/20/19 09:31 98 08/20/19 09:29 100/42 L 98 08/20/19 09:27 37.2 C 66 16 100/42 L 98 08/20/19 09:15 66 08/20/19 09:00 67 08/20/19 08:45 68 08/20/19 08:30 66 08/20/19 08:15 66 08/20/19 08:00 69 08/20/19 07:45 68 08/20/19 07:30 63 08/20/19 07:23 37.3 C 67 16 100/32 L 99 08/20/19 07:15 63 08/20/19 07:00 64 08/20/19 06:45 64 08/20/19 06:30 63 08/20/19 06:15 63 08/20/19 06:00 66 08/20/19 05:45 62 08/20/19 05:30 61 08/20/19 05:15 62 08/20/19 05:00 62 08/20/19 04:45 64 08/20/19 04:30 64 08/20/19 04:15 67 08/20/19 04:00 63 08/20/19 03:45 65 08/20/19 03:43 37.1 C 65 18 111/55 L 98 08/20/19 03:30 62 08/20/19 03:15 62 08/20/19 03:00 64 08/20/19 02:45 66 08/20/19 02:30 63 08/20/19 02:15 64 08/20/19 02:00 60 08/20/19 01:45 62 08/20/19 01:30 65 08/20/19 01:15 61 08/20/19 01:00 63 08/20/19 00:45 65 08/20/19 00:30 65 08/20/19 00:15 61 08/20/19 00:00 63 08/19/19 23:45 64 08/19/19 23:42 37.3 C 64 18 101/46 L 98 08/19/19 23:30 60 08/19/19 23:15 62 08/19/19 23:05 62 PG Care Time/CCT Total # of Minutes Spent Total Time Spent with Patient: Total time spent is greater than 50% in coordination of care (as documented) at patient's floor/unit and/or counseling patient:
[2019-08-20] MEDS: SPIRONOLACTONE 25 MG TAB PO SCH ×2 (12:14→16:11)
[2019-08-20 13:29] LABS: Basophils # (auto) 0.01 K/uL (0-0.2); Basophils % (auto) 0.1 %; Eosinophils # (auto) 0.08 K/uL (0-0.5); Hematocrit (blood only) 27.6 % (37-47); Hemoglobin 8.5 g/dL (12.0-16.0); Immature Granulocytes # (auto) 0.03 K/uL (0.00-0.02); Immature Granulocytes % (auto) 0.4 %; Lymphocytes # (auto) 1.24 K/uL (1.2-3.4); Mean Corpuscular Hemoglobin 24.5 pg (25-34); Mean Corpuscular Volume 79.5 fL (80-100); Mean Platelet Volume 8.5 fL (7.4-10.4); Monocytes # (auto) 0.62 K/uL (0.11-0.59); Monocytes % (auto) 7.5 %; Neutrophils # (auto) 6.27 K/uL (1.4-6.5); Nucleated RBC # (auto) 0.03 K/uL (0-0); Nucleated RBC % (auto) 0.3 %; Platelet Count 218 K/uL (130-400); RDW Coefficient of Variation 17.1 % (11.5-14.5); RDW Standard Deviation 49.6 fL (36.4-46.3); Red Blood Count 3.47 M/uL (4.2-5.4); White Blood Count 8.25 K/uL (4.8-10.8)
[2019-08-20 14:02] LABS: Mean Corpuscular Hgb Conc 30.8 g/dL (32-36)
[2019-08-20] MEDS: TIOTROPIUM BROMIDE 5 PUFF/90 MCG INH INH SCH (16:08)
[2019-08-20] MEDS: ATORVASTATIN 20 MG TAB PO SCH (21:08)
[2019-08-20] MEDS: RIVAROXABAN 20 MG TAB PO SCH (21:09)
[2019-08-21 06:31] LABS: Basophils # (auto) 0.01 K/uL (0-0.2); Basophils % (auto) 0.2 %; Eosinophils # (auto) 0.24 K/uL (0-0.5); Eosinophils % (auto) 4.1 %; Hematocrit (blood only) 26.6 % (37-47); Hemoglobin 8.1 g/dL (12.0-16.0); Immature Granulocytes # (auto) 0.05 K/uL (0.00-0.02); Immature Granulocytes % (auto) 0.9 %; Lymphocytes # (auto) 1.45 K/uL (1.2-3.4); Lymphocytes % (auto) 24.9 %; Mean Corpuscular Hemoglobin 24.3 pg (25-34); Mean Corpuscular Hgb Conc 30.5 g/dL (32-36); Mean Corpuscular Volume 79.6 fL (80-100); Mean Platelet Volume 8.5 fL (7.4-10.4); Monocytes # (auto) 0.48 K/uL (0.11-0.59); Monocytes % (auto) 8.2 %; Neutrophils % (auto) 61.7 %; Platelet Count 214 K/uL (130-400); RDW Coefficient of Variation 17.6 % (11.5-14.5); RDW Standard Deviation 50.8 fL (36.4-46.3); Red Blood Count 3.34 M/uL (4.2-5.4); White Blood Count 5.83 K/uL (4.8-10.8)
[2019-08-21 07:06] LABS: Albumin Level 2.4 gm/dl (3.4-5.0); Calcium 8.7 mg/dl (8.5-10.1); Creatinine Clr Calc Pharmacy 46.6 ml/min; Est GFR (African American) 44.1; Est GFR (Non-African American) 38.1; Potassium 3.5 mmol/L (3.5-5.1)
[2019-08-21 07:14] LABS: Albumin Globulin Ratio 0.6 (0.9-2); Bilirubin,Total 0.4 mg/dl (0.2-1); Globulin 4.1 gm/dl (2.5-4.0); Phosphorus 2.3 mg/dl (2.5-4.9); Total Protein 6.5 gm/dl (6.4-8.2)
[2019-08-21] MEDS: METOPROLOL SUCC 50MG EXT REL TAB PO SCH ×2 (08:03→14:11)
[2019-08-21] MEDS: CHOLECALCIFEROL 1,000 UNITS TAB PO SCH (08:23)
[2019-08-21] MEDS: DULOXETINE HCL 20 MG CAP PO SCH (08:23)
[2019-08-21] MEDS: MONTELUKAST SODIUM 10 MG TABLET PO SCH (08:23)
[2019-08-21] MEDS: MAGNESIUM OXIDE 400 MG TAB PO SCH (08:23)
[2019-08-21] MEDS: TIOTROPIUM BROMIDE 5 PUFF/90 MCG INH INH SCH (08:24)
[2019-08-21] MEDS: FAMOTIDINE 20 MG TAB PO SCH (08:24)
[2019-08-21] MEDS: PROBENECID 500 MG TAB PO SCH (08:24)
[2019-08-21] MEDS: BUDESONIDE/FORMOTEROL FUMARATE 160/4.5 60 PUFFS/INHALER INH SCH (08:24)
[2019-08-21] MEDS: SPIRONOLACTONE 25 MG TAB PO SCH (08:37)
--- NOTE | 2019-08-21 09:04 | Hospitalist Progress Note ---
Date of Service August 21, 2019 Assessment & Plan (1) CHF exacerbation: Patient eager to go home Please follow-up with your PCP within 2-3 days with CBC and CMP being rechecked. Continue spironolactone 50 milligram twice a day and continue to keep off of Lasix and metolazone on discharge.Patient should weigh herself daily if weight gain more than 2 pound in a day, advise to start on Lasix 40 milligram daily and increase dose as needed. Potassium 20 meQ BID that you have at home take only if you are taking Furosemide , but not otherwise unless directed by your primary care doctor. Check you potassium level periodically as per your PCP. With iron deficiency recommended outpatient further GI workup and IV iron infusion which is going to be set up in Dr. Lucero's office -Hematology and oncology.Please schedule appointment with outpatient gastroenterology within 1 - 2 weeks for further work up of anemia. Pt should follow with primary information systems supervisor Dr. Molina in next 2-3 weeks DVT prophylaxis: Patient is on anticoagulation with Xarelto CODE STATUS full code. (2) Severe anemia: Fecal occult blood negative. Hemoglobin 8.1. Yesterday was 8.5. Discussed with Dr. Marisela Pickard and he said that it is most likely due to recent chemotherapy and he will see patient in the office and start IV iron next week. Please follow-up with your PCP within 2-3 days with CBC and CMP being rechecked. Continue spironolactone 50 milligram twice a day and continue to keep off of Lasix and metolazone on discharge.Patient should weigh herself daily if weight gain more than 2 pound in a day, advise to start on Lasix 40 milligram daily and increase dose as needed. Potassium 20 meQ BID that you have at home take only if you are taking Furosemide , but not otherwise unless directed by your primary care doctor. Check you potassium level periodically as per your PCP. With iron deficiency recommended outpatient further GI workup and IV iron infusion which is going to be set up in Dr. Lucero's office -Hematology and oncology.Please schedule appointment with outpatient gastroenterology within 1 - 2 weeks for further work up of anemia. Pt should follow with primary information systems supervisor Dr. Molina in next 2-3 weeks (3) Acute kidney injury: Appreciate nephrology recommendation. Recommended holding all diuretics for now. Repeat renal panel before you see your information systems supervisor Avoid nephrotoxic agents. (4) Type 2 diabetes mellitus with stage 3 chronic kidney disease, without long- term current use of insulin: Accu-Cheks before meals and at bedtime. Patient is not on any glycemic control at home. A1c 6.5 in January 2019. Will repeat A1c. Diabetes type 2 controlled with diet. (5) Hypertension: As above (6) Paroxysmal atrial fibrillation: Patient goes in and out sinus rhythm. Continue controlling rate with metoprolol succinate 100 mg p.o. 3 times daily. TTE: Left ventricular systolic function is normal. No regional wall motion abnormalities noted. There is a borderline concentric left ventricular hypertrophy. Ejection fraction 55 to 60%. There is mild mitral regurgitation. There is mild tricuspid regurgitation. Appreciate cardiology recommendations. (7) Non-small cell lung cancer: Stable now, follow-up with oncology. (8) CML (chronic myelocytic leukemia): Stable now. Hematology oncology follows. (9) Hyperlipidemia: Continue atorvastatin 20 mg p.o. nightly. Subjective Patient seen and examined at the bedside. Comfortably resting in the bed. Reports feeling little bit better today. Patient has history of CML currently on chemotherapy Sprycel. Patient is on 2 L of supplemental oxygen. Patient usually takes supplemental oxygen at home the same amount. Patient is compliant with p.o. fluid restriction to 1200 cc daily for congestive heart failure. Patient denies fever chills chest pain shortness of breath abdominal pain frequency urgency hemoptysis hematuria dysuria. Appreciate nephrology and hematology recommendations. Discussed with Dr. Upton information systems supervisor and Dr. Lucero hematology oncology and they agreed to discharge patient and have close follow-up with PCP, hematology oncology next week in the clinic and primary information systems supervisor. Review of Systems Review of Systems: All systems reviewed & are unremarkable except as noted in HPI & below Physical Exam Constitutional: WD/WN, vitals as above well developed and + obese Eyes: PERRL, conjunctivae normal, anicteric sclerae ENMT: external ear and nose normal, oropharynx normal Neck: trachea midline, no thyromegaly Respiratory: normal respiratory effort, lungs clear to auscultation Cardiovascular: Rate/Rhythm: + irregularly irregular Gastrointestinal (Abdomen): normal bowel sounds, soft, nontender, no hepatosplenomegaly Musculoskeletal: no cyanosis or clubbing, extremities motor strength 5/5 Skin: no rashes, warm and dry Neurologic: patellar DTR's 2+ bilat, sensation intact Psychiatric: A+Ox3, euthymic affect Genitourinary: no vaginal lesions, no adnexal mass Lymphatic: no cervical or axillary lymphadenopathy Results & Data Vital Signs (Past 12 Hours) Vital Signs Temp Pulse Resp BP Pulse Ox 08/21/19 08:41 101/59 L 08/21/19 07:10 36.8 C 62 18 92/42 L 99 08/21/19 02:57 37.1 C 63 18 111/59 L 98 08/20/19 23:48 37.3 C 70 20 110/54 L 95 PG Care Time/CCT Total # of Minutes Spent Total Time Spent with Patient: Total time spent is greater than 50% in coordination of care (as documented) at patient's floor/unit and/or counseling patient:
[2019-08-21] MEDS: POTASSIUM CHLORIDE 20 MEQ TABCR PO SCH (10:37)
--- NOTE | 2019-08-21 11:26 | Nephrology Progress Note ---
Date of Service August 21, 2019 Assessment & Plan (1) Acute kidney injury: 64 yo F with stage 3A CKD, b/l cr 1.2-1.3 with h/o recurrent GIOVANA with volume depletion, admitted with SOB, weakness and inability to walk. Found to have GIOVANA, hyponatremia and pulmonary congestion on CXR. Received IV lasix and metolazone. Volume status improved significantly. Clinically she seems euvolemic. Has anemia with iron deficiency, received 1 unit of blood transfusion but hemoglobin dropped again to 8.1 with severe iron deficiency. Renal function and volume status stable. Electrolyte acceptable. Blood pressure acceptable. --continue spironolactone 50 milligram twice a day and continue to keep off of Lasix and metolazone on discharge. Advised patient to weigh herself daily if weight gain more than 2 pound in a day, advise to start on Lasix 40 milligram daily and increase dose as needed --with severe iron deficiency and drop in hemoglobin, may need further GI workup and IV iron infusion however patient has been following with Hematology, will defer to Hematology for further management --okay to be discharged if clinically stable, should have outpatient and renal panel monitoring 2-3 days after discharge and lab result should be followed to her primary education instructor Dr. Molina and she should have a follow-up with Dr. Molina in next 2-3 weeks Will sign off (2) Fluid overload: (3) CML (chronic myelocytic leukemia): (4) CKD (chronic kidney disease): (5) Hyponatremia: Subjective Marycarmen Was not explain her this morning. Overall feeling well. Volume status stable off of diuretics since yesterday afternoon 1.5 liter negative. Renal fu nction and Blood pressure stable. Review of Systems Review of Systems: All systems reviewed & are unremarkable except as noted in HPI & below Physical Exam Constitutional: WD/WN, vitals as above well developed and well nourished; no acute distress Eyes: PERRL, conjunctivae normal, anicteric sclerae ENMT: Ears: no hearing impairment Neck: trachea midline Respiratory: normal respiratory effort, lungs clear to auscultation no cough Auscultation: no crackles, no rales and no wheezes Cardiovascular: RRR, no murmur, no edema Rate/Rhythm: + irregularly irregular Heart Sounds: normal S1 and normal S2 Extremities: no edema Skin: no rashes, warm and dry Neurologic: moves all extremities and awake; not confused Psychiatric: A+Ox3, euthymic affect Results & Data Vital Signs (Past 12 Hours) Vital Signs Temp Pulse Resp BP Pulse Ox 08/21/19 11:04 36.9 C 68 20 113/59 L 99 08/21/19 08:41 101/59 L 08/21/19 07:10 36.8 C 62 18 92/42 L 99 08/21/19 02:57 37.1 C 63 18 111/59 L 98 08/20/19 23:48 37.3 C 70 20 110/54 L 95 PG Care Time/CCT Total # of Minutes Spent Total Time Spent with Patient: Total time spent is greater than 50% in coordination of care (as documented) at patient's floor/unit and/or counseling patient:
[2019-08-21] MEDS: TRAMADOL HCL 50 MG TABLET PO PRN (12:53)
[2019-08-21] MEDS ORDERED: POTASSIUM CHLORIDE 20 MEQ TABCR PO STA ×2 (13:35→13:39)
--- NOTE | 2019-08-21 13:57 | Discharge Summary ---
Date of Service August 21, 2019 Admission HPI Per Admitting Provider The patient is 64-year-old female with history of lung cancer status post lobectomy. She has history of CML currently on chemotherapy. Patient is now complaining of increasing shortness of breath and swelling of the body and generalized weakness getting worse for the last 5 days. She was recently diagnosed with volume overload as a side effect of her chemotherapy medication. She has occasional cough. No sputum or hemoptysis. No fever. Further work-up done in the ER shows that patient has volume overload, BNP is high at 4929. She will be admitted for further evaluation and management. Principal Diagnosis none Discharge Exam Constitutional WD/WN, vitals as above well developed and + obese Eyes PERRL, conjunctivae normal, anicteric sclerae ENMT external ear and nose normal, oropharynx normal Neck trachea midline, no thyromegaly Respiratory normal respiratory effort, lungs clear to auscultation Cardiovascular Rate/Rhythm: + irregularly irregular Gastrointestinal (Abdomen) normal bowel sounds, soft, nontender, no hepatosplenomegaly Musculoskeletal no cyanosis or clubbing, extremities motor strength 5/5 Skin no rashes, warm and dry Neurologic patellar DTR's 2+ bilat, sensation intact Psychiatric A+Ox3, euthymic affect Genitourinary no vaginal lesions, no adnexal mass Lymphatic no cervical or axillary lymphadenopathy Discharge Data Allergies Allergy/AdvReac Type Severity Reaction Status Date / Time diltiazem Allergy Severe SHORTNESS Verified 08/18/19 14:00 OF BREATH AND SWELLING OF HANDS AND FACE adhesive Allergy Mild BLISTERS Verified 08/18/19 14:00 latex Allergy Mild RASH Verified 08/18/19 14:00 indomethacin Allergy Unknown per pulm Verified 08/18/19 14:00 note Penicillins Allergy Unknown WELTS IN Verified 08/18/19 14:00 MOUTH AND SPREAD TO BODY nut - unspecified Allergy Verified 08/19/19 12:09 peanut Allergy Verified 08/19/19 12:10 codeine AdvReac Mild N&V&GI PAIN Verified 08/18/19 14:00 paroxetine AdvReac Mild GI SYMPTOMS Verified 08/18/19 14:00 varenicline AdvReac Mild GI SYMPTOMS Verified 08/18/19 14:00 Consultations 08/18/19 15:22 ED Decision to Admit Stat 08/18/19 18:38 Consult Cardiology Routine Consult Hematology Routine Consult Nephrology Routine Ordered Studies 08/18/19 12:19 CT head/brain wo con Stat Hospital Course (1) CHF exacerbation: Patient eager to go home Please follow-up with your PCP within 2-3 days with CBC and CMP being rechecked. Continue spironolactone 50 milligram twice a day and continue to keep off of Lasix and metolazone on discharge.Patient should weigh herself daily if weight gain more than 2 pound in a day, advise to start on Lasix 40 milligram daily and increase dose as needed. Potassium 20 meQ BID that you have at home take only if you are taking Furosemide , but not otherwise unless directed by your primary care doctor. Check you potassium level periodically as per your PCP. With iron deficiency recommended outpatient further GI workup and IV iron infusion which is going to be set up in Dr. Lucero's office -Hematology and oncology.Please schedule appointment with outpatient gastroenterology within 1 - 2 weeks for further work up of anemia. Pt should follow with primary electrical and radio aircraft mechanic Dr. Molina in next 2-3 weeks DVT prophylaxis: Patient is on anticoagulation with Xarelto CODE STATUS full code. (2) Severe anemia: Fecal occult blood negative. Hemoglobin 8.1. Yesterday was 8.5. Discussed with Dr. Marisela Pickard and he said that it is most likely due to recent chemotherapy and he will see patient in the office and start IV iron next week. Please follow-up with your PCP within 2-3 days with CBC and CMP being rechecked. Continue spironolactone 50 milligram twice a day and continue to keep off of Lasix and metolazone on discharge.Patient should weigh herself daily if weight gain more than 2 pound in a day, advise to start on Lasix 40 milligram daily and increase dose as needed. Potassium 20 meQ BID that you have at home take only if you are taking Furosemide , but not otherwise unless directed by your primary care doctor. Check you potassium level periodically as per your PCP. With iron deficiency recommended outpatient further GI workup and IV iron infusion which is going to be set up in Dr. Lucero's office -Hematology and oncology.Please schedule appointment with outpatient gastroenterology within 1 - 2 weeks for further work up of anemia. Pt should follow with primary electrical and radio aircraft mechanic Dr. Molina in next 2-3 weeks (3) Acute kidney injury: Appreciate nephrology recommendation. Recommended holding all diuretics for now. Repeat renal panel before you see your electrical and radio aircraft mechanic Avoid nephrotoxic agents. (4) Type 2 diabetes mellitus with stage 3 chronic kidney disease, without long-term current use of insulin: Accu-Cheks before meals and at bedtime. Patient is not on any glycemic control at home. A1c 6.5 in January 2019. Will repeat A1c. Diabetes type 2 controlled with diet. (5) Hypertension: As above (6) Paroxysmal atrial fibrillation: Patient goes in and out sinus rhythm. Continue controlling rate with metoprolol succinate 100 mg p.o. 3 times daily. TTE: Left ventricular systolic function is normal. No regional wall motion abnormalities noted. There is a borderline concentric left ventricular hypertrophy. Ejection fraction 55 to 60%. There is mild mitral regurgitation. There is mild tricuspid regurgitation. Appreciate cardiology recommendations. (7) Non-small cell lung cancer: Stable now, follow-up with oncology. (8) CML (chronic myelocytic leukemia): Stable now. Hematology oncology follows. (9) Hyperlipidemia: Continue atorvastatin 20 mg p.o. nightly. Total Time Total Time Spent Total Time Spent (In Minutes): over 30 min Discharge Plan Discharge Items Patient Disposition: Home - Self-Care Reason For Visit: SOB Discharge Diagnosis: Acute exacerbation of congestive heart failure, anemia Condition on Discharge: Good Activity: As commented below Lifting: Gradually increase as tolerated Non-emergency contact: Primary Care Provider, Web Content Editor, Neurologist and Oncologist Call non-emergency contact if: you have any medication questions, your symptoms worsen, your pain is not controlled, your pain is worsening and your temperature is above 101 Follow-up/Referrals: Octavio Galo MD [Primary Care Provider] - Diet: Carb Consistent or DM2, Heart Healthy and Low Sodium (2gm) Addtl Attending Provider Instructions: Please follow-up with your PCP within 2-3 days with CBC and CMP being rechecked. Continue spironolactone 50 milligram twice a day and continue to keep off of Lasix and metolazone on discharge.Patient should weigh herself daily if weight gain more than 2 pound in a day, advise to start on Lasix 40 milligram daily and increase dose as needed. Potassium 20 meQ BID that you have at home take only if you are taking Furosemide , but not otherwise unless directed by your primary care doctor. Check you potassium level periodically as per your PCP. With iron deficiency recommended outpatient further GI workup and IV iron infusion which is going to be set up in Dr. Lucero's office -Hematology and oncology.Please schedule appointment with outpatient gastroenterology within 1 - 2 weeks for further work up of anemia. Pt should follow with primary electrical and radio aircraft mechanic Dr. Molina in next 2-3 weeks Pending Studies at Discharge: No Stand-Alone Forms: My [facility] Medications and DC Order Prescriptions: New famotidine 20 mg Tablet 20 mg PO QAM PRN (Reason: acid reflux) Qty: 30 RF: 0 Saturnino-Sequels (iron-vit c) 200 mg (65 mg iron)-25 mg tablet extended release 1 tab PO DAILY Qty: 30 RF: 0 Continued magnesium oxide 400 mg (241.3 mg magnesium) tablet 400 mg PO DAILY Qty: 30 RF: 5 montelukast 10 mg tablet 10 mg PO DAILY Qty: 30 RF: 5 metoprolol succinate 100 mg tablet extended release 24 hr 100 mg PO TID Qty: 270 RF: 3 tramadol 50 mg tablet 100 mg PO TID PRN (Reason: pain) Qty: 180 RF: 0 probenecid 500 mg tablet 250 mg PO BID Qty: 90 RF: 1 duloxetine 20 mg capsule,delayed release(DR/EC) 40 mg PO DAILY Qty: 60 RF: 5 flecainide 100 mg tablet 100 mg PO TID RF: 0 Incruse Ellipta 62.5 mcg/actuation blister with device 1 puffs INH DAILY RF: 0 diphenhydramine HCl [Benadryl] 25 mg capsule 25 mg PO HS PRN (Reason: Allergic Symptoms) RF: 0 dasatinib 100 mg tablet 100 mg PO DAILY RF: 0 atorvastatin 20 mg Tablet 20 mg PO HS RF: 0 docusate sodium [Stool Softener] 100 mg Capsule 100 mg PO BID PRN (Reason: Constipation) RF: 0 albuterol sulfate [Ventolin HFA] 90 mcg/actuation Hfa Aerosol Inhaler 2 puff INHALATION QID PRN (Reason: Shortness Of Breath) RF: 0 fluticasone propionate [Flonase Allergy Relief] 50 mcg/actuation [place],Suspension 1 spray INTRANASAL BID PRN (Reason: Allergy Symptoms) RF: 0 loratadine 10 mg Tablet 10 mg PO QAM PRN (Reason: Allergy Symptoms) RF: 0 cholecalciferol (vitamin D3) [Vitamin D3] 2,000 unit Capsule 2,000 unit PO QAM RF: 0 Xarelto 20 mg Tablet 20 mg PO HS RF: 0 spironolactone 50 mg tablet 50 mg PO BID RF: 0 calcitriol 0.25 mcg capsule 0.25 mcg PO 3XWK RF: 0 Symbicort 160-4.5 mcg/actuation HFA aerosol inhaler 2 puff INHALATION BID RF: 0 Discontinued furosemide 80 mg tablet 80 mg PO BID Qty: 180 RF: 1 omeprazole 20 mg Tablet,Delayed Release (Dr/Ec) 20 mg PO BID RF: 0 potassium chloride 20 mEq Tablet Extended Release 20 meq PO BID RF: 0 metolazone 2.5 mg tablet 2.5 mg PO 5XWK RF: 0 Discharge Orders: Discharge Order (Routine); Ordered 08/21/19 Ordered By: Sukhdev Pitt Admission Data Admit Date/Time: 08/18/19 16:20 Attending Provider: Sukhdev Pitt Admit Provider: Christiano Cao Primary Care Provider: Octavio Galo Other Providers: Christiano Cao ; Patrice Louie ; Alex Lucero ; Guanakito Molina Other Interventions: Discharge Summary Assessment (RN) Last Done: 08/21/19 13:41
== END 2019-08-21 15:30 | disposition home health service (06) | DRG 291 ==
LOC: ED 11:55 → 2E 16:20 → SUATTDRO 16:20 → 2E 17:38

== ENCOUNTER 2019-09-07 09:41 | Observation (INO) ==
--- NOTE | 2019-09-07 10:16 | XRay Report ---
XR chest 1V portable CLINICAL HISTORY: 64 years-old Female presenting with Chest Pain. TECHNIQUE: Portable upright AP view of the chest was obtained. COMPARISON: 08/18/2019. FINDINGS: Atherosclerosis of the aortic arch. Cardiac silhouette enlarged. Pulmonary vascular prominence. Inter stitial prominence likely relates to interlobular septal thickening. Elevation of the left hemidiaphr agm as on prior exam. Minimal basilar opacities. Trace pleural effusions may be present. No pneumotho rax. Degenerative changes of the shoulders. Upper abdomen normal. IMPRESSION: 1. Cardiomegaly with volume overload and congestive change. Findings are stable to minimally worsene d from prior exam. Developing/early pulmonary edema is not excluded. 2. Bibasilar atelectasis greater on the left. Electronically signed by: Sarath Gordon M.D. 09/07/2019 10:15 AM
[2019-09-07 10:40] LABS: Basophils # (auto) 0.04 K/uL (0-0.2); Basophils % (auto) 0.5 %; Eosinophils # (auto) 0.09 K/uL (0-0.5); Eosinophils % (auto) 1.1 %; Hematocrit (blood only) 30.5 % (37-47); Hemoglobin 9.1 g/dL (12.0-16.0); Immature Granulocytes # (auto) 0.03 K/uL (0.00-0.02); Immature Granulocytes % (auto) 0.4 %; Lymphocytes # (auto) 1.24 K/uL (1.2-3.4); Lymphocytes % (auto) 14.6 %; Mean Corpuscular Hemoglobin 24.8 pg (25-34); Mean Corpuscular Hgb Conc 29.8 g/dL (32-36); Mean Corpuscular Volume 83.1 fL (80-100); Mean Platelet Volume 8.2 fL (7.4-10.4); Monocytes # (auto) 0.64 K/uL (0.11-0.59); Monocytes % (auto) 7.5 %; Neutrophils # (auto) 6.48 K/uL (1.4-6.5); Neutrophils % (auto) 75.9 %; Platelet Count 275 K/uL (130-400); RDW Coefficient of Variation 22.2 % (11.5-14.5); RDW Standard Deviation 65.5 fL (36.4-46.3); Red Blood Count 3.67 M/uL (4.2-5.4); White Blood Count 8.52 K/uL (4.8-10.8)
[2019-09-07 10:48] LABS: Base Excess VBG 4.6 mEq/L; HCO3 VBG 30 mmol/L; PCO2 VBG 50 mmHg (38-50); PO2 VBG 22 mmHg
[2019-09-07 10:49] LABS: INR 1.2 (0.9-1.1); Prothrombin Time 12.2 Seconds (9.0-12.0)
[2019-09-07 10:55] LABS: Oxygen Saturation VBG < 60.0 %
[2019-09-07 10:58] LABS: Alanine Aminotransferase 16 U/L (12-78); Albumin Level 2.7 gm/dl (3.4-5.0); Aspartate Aminotransferase 22 U/L (15-37); BUN Creatinine Ratio 11.5 (10-20); Blood Urea Nitrogen 15 mg/dl (7-18); Calcium 9.5 mg/dl (8.5-10.1); Carbon Dioxide 30 mmol/L (21-32); Chloride 99 mmol/L (98-107); Creatinine Clr Calc Pharmacy 52.7 ml/min; Est GFR (African American) 48.6; Est GFR (Non-African American) 41.9; Glucose 97 mg/dl (70-99); Lipase 60 U/L (73-393); Magnesium 2.1 mg/dl (1.8-2.4); Potassium 4.6 mmol/L (3.5-5.1); Sodium 135 mmol/L (136-145)
--- NOTE | 2019-09-07 11:04 | CT Scan Report ---
CT head/brain wo con CLINICAL HISTORY: dizziness, generalized weakness COMPARISON STUDY: 08/18/2019 TECHNIQUE: Axial CT of the brain is performed from the vertex to the skull base. IV contrast was not administered for this examination. A dose lowering technique was utilized adhering to the principles of ALARA. CT DOSE: 614.27 mGy.cm FINDINGS: No intra or extra-axial mass lesions are visualized. There is no CT evidence of acute cortical infarc tion. There is no evidence of midline shift. There is no acute hemorrhage. No calvarial fractures ar e visualized. There are minimal white matter hypodensities likely on a small vessel basis. There is no evidence of pathologic ventricular dilatation. There is no evidence of acute sinusitis IMPRESSION: No acute intracranial findings Electronically signed by: Torres Li M.D. 09/07/2019 11:03 AM
[2019-09-07 11:07] LABS: Albumin Globulin Ratio 0.6 (0.9-2); Alkaline Phosphatase 104 U/L (45-117); Bilirubin,Total 0.5 mg/dl (0.2-1); Creatine Kinase 23 U/L (26-192); Globulin 4.4 gm/dl (2.5-4.0); Phosphorus 3.4 mg/dl (2.5-4.9); Total Protein 7.1 gm/dl (6.4-8.2); Troponin I < 0.015 ng/ml (0-0.045)
[2019-09-07 11:10] LABS: Anisocytosis Present
[2019-09-07 11:47] LABS: Appearance Urine Clear (Clear); Bacteria Urine Automated Negative (Negative); Bilirubin Urine Negative (Negative); Blood Urine Negative (Negative); Color Urine Yellow; Glucose Urine UA Negative (Negative); Ketones Urine Negative (Negative); Leukocyte Esterase Urine Negative (Negative); Nitrite Urine Negative (Negative); Protein Urine 1+ (Negative); RBC Urine Automated 0-4 /hpf (0-4); Specific Gravity Urine 1.011 (1.000-1.030); Urobilinogen Urine Negative (Negative)
--- NOTE | 2019-09-07 13:05 | History & Physical Report ---
Date of Service September 07, 2019 Assessment & Plan (1) Bradycardia: Patient with atrial fibrillation. Per medication list seems that she is on Metoprolol ER 100mg po TID as well as Flecainide 100mg po TID. She reports episodes of bradycardia as low as 45bpm but does not seem to think that her heart rate is related to any symptoms. Heart rate of 30 reported today with some symptoms is concerning. She denies palpitations, CP, SOB. She follows with Dr. Wright for management of her anti-arrhythmics and states that her heart rate becomes quite uncontrolled if her medications are decreased. -Observation to medical floor with telemetry -Unsure if patient should be on extended release Metoprolol three times daily. Will hold for now and put her on Metoprolol tartrate 100mg po BID and monitor response -Hold Flecainide for now. Check level -Cardiology consultation - patient is known to Dr. Wright (2) Near syncope: As above. Possibly secondary to medication effects, orthostasis, heartrate. -Check orthostatic VS -Medication adjustments as above -Check ESR, CRP and Cortisol level Present on Admission?: Yes (3) Atrial fibrillation: Bradycardic at present -Continue Xarelto 20mg po qHS -Continue Metoprolol with changed dosage as above -Holding Flecainide for now -Telemetry monitoring Present on Admission?: Yes (4) CML (chronic myelocytic leukemia): Chronic. Patient follows with Oncology. Was on desatinib which is presently on hold due to medication side effects. Blood counts seem to be improved. -Continue to hold Dasatinib -Oncology followup outpatient -Continue Ferrous Fumarate -Bowel regimen - Colace, Dulcolax, Miralax Present on Admission?: Yes (5) CKD (chronic kidney disease): BUN=45, Cr=1.32. Near baseline. -Avoid nephrotoxic agents -Renal dosing where appropriate -Continue to monitor BUN/Cr/Electrolytes and UOP Present on Admission?: Yes (6) Hyperlipidemia: Chronic. Stable -Continue Atorvastatin Present on Admission?: Yes (7) Type 2 diabetes mellitus with stage 3 chronic kidney disease, without long- term current use of insulin: Blood sugar acceptable -Continue to monitor -Consistent carb diet Present on Admission?: Yes (8) Vitamin D deficiency: Chronic. Chronic. -Hold Vitamin D for now. Patient may continue on discharge Present on Admission?: Yes (9) Hypertension: Blood pressure stable at present. -Continue Spironolactone -Metoprolol as above -Continue to monitor Present on Admission?: Yes (10) Severe anemia: Blood counts improved -Continue iron -Continue to monitor -IV Iron as arranged outpatient (11) COPD (chronic obstructive pulmonary disease): Patient with stable respiratory status at present. SOB/KOHLI is at baseline. No wheezing -Continue umeclidinium -Continue Symbicort -Albuterol as needed -Continue singulair (12) Gout: Chronic. Stable at present. Tophi on hands and feet unchanged -Continue Probenecid Present on Admission?: Yes History of Present Illness Chief Complaint: Weakness Primary Care Provider: Ok Galo MD Marycarmen Schilling is a pleasant 64-year-old female with history of CML being treated with dasatinib (patient follows with Dr. Lucero, medication is presently on hold for the last month secondary to side effects. Per patient tentative plan to decrease dosage in the future), COPD on home oxygen/2 L, hypertension, paroxysmal atrial fibrillation, diabetes presenting with weakness and bradycardia. Patient reports having "spells" intermittent for at least the last 3 weeks. The spells occur several times per day and typically start after she stands up. She reports some difficulty rising from a chair, after she gets up she feels pain in her shoulders bilaterally and weakness and "rubbery" legs, difficulty standing. After this she feels quite tired and mentally foggy sometimes for hours. She has some slight dizziness upon rising. No syncope. She reports that her heart rate during these spells is normal, 60s to 70s. She thinks these spells began after she discontinued her oral steroid Today she had a similar spell. EMS was called. Reportedly her heart rate was in the 30s to 50s when they arrived. Patient states that her heart rate typically runs in the 60s but has gotten quite low in the past to around 45 bpm. She denies syncope, palpitations, chest pain. She does report some episodes of transient confusion but does not feel that this is associated with her heart rate in any way. Additionally, patient denies visual changes, headache, scalp tenderness or jaw claudication. She denies a rash. Denies abdominal pain nausea/vomiting. She is constipated on a regular basis and has taken some medication for this with minimal effect. She also reports dyspnea with minimal exertion. She is on 2 L of oxygen at home chronically however, if she exerts herself in any way like housecleaning or folding laundry she needs to turn her oxygen up to 3 L. She believes this has been relatively stable since initiation of chemotherapy. She has been weighing herself daily as instructed. Since her discharge on 08/21/2019 she is only needed to take Lasix and potassium 2 times. She has been taking her other medications as prescribed. She was given oral iron tablets and was to start iron infusions tomorrow. Allergies Allergy/AdvReac Type Severity Reaction Status Date / Time diltiazem Allergy Severe SHORTNESS Verified 09/07/19 10:24 OF BREATH AND SWELLING OF HANDS AND FACE adhesive Allergy Mild BLISTERS Verified 09/07/19 10:24 latex Allergy Mild RASH Verified 09/07/19 10:24 indomethacin Allergy Unknown per pulm Verified 09/07/19 10:24 note Penicillins Allergy Unknown WELTS IN Verified 09/07/19 10:24 MOUTH AND SPREAD TO BODY nut - unspecified Allergy . Verified 09/07/19 10:24 peanut Allergy . Verified 09/07/19 10:24 codeine AdvReac Mild N&V&GI PAIN Verified 09/07/19 10:24 paroxetine AdvReac Mild GI SYMPTOMS Verified 09/07/19 10:24 varenicline AdvReac Mild GI SYMPTOMS Verified 09/07/19 10:24 Home Medications Home Medications Medication Instructions Recorded Confirmed Type Xarelto 20 mg PO HS 09/01/18 09/07/19 History albuterol sulfate [Ventolin HFA] 2 puff INHALATION QID PRN 09/01/18 09/07/19 History atorvastatin 20 mg PO HS 09/01/18 09/07/19 History cholecalciferol (vitamin D3) 2,000 unit PO QAM 09/01/18 09/07/19 History [Vitamin D3] docusate sodium [Stool Softener] 100 mg PO BID PRN 09/01/18 09/07/19 History fluticasone propionate [Flonase 1 spray INTRANASAL BID PRN 09/01/18 09/07/19 History Allergy Relief] loratadine 10 mg PO QAM PRN 09/01/18 09/07/19 History magnesium oxide 400 mg (241.3 mg 400 mg PO DAILY #30 tab 04/07/19 09/07/19 Rx magnesium) tablet montelukast 10 mg tablet 10 mg PO DAILY #30 tab 04/19/19 09/07/19 Rx metoprolol succinate ER 100 mg 100 mg PO TID #270 tab 06/16/19 09/07/19 Rx tablet,extended release 24 hr flecainide 100 mg tablet 100 mg PO TID tab 06/22/19 09/07/19 History spironolactone 50 mg tablet 50 mg PO BID tab 06/22/19 09/07/19 History umeclidinium 62.5 mcg/actuation 1 puffs INH DAILY 06/22/19 09/07/19 History blister powder for inhalation dasatinib 100 mg tablet 100 mg PO DAILY 07/07/19 09/07/19 History probenecid 500 mg tablet 250 mg PO BID #90 tab 08/09/19 09/07/19 Rx duloxetine 20 mg capsule,delayed 40 mg PO DAILY #60 cap 08/10/19 09/07/19 Rx release Symbicort 2 puff INHALATION BID 08/18/19 09/07/19 History calcitriol 0.25 mcg PO 3XWK 08/18/19 09/07/19 History famotidine 20 mg PO QAM PRN #30 tab 08/21/19 09/07/19 Rx ferrous fumarate-vitamin C 1 tab PO DAILY #30 tab 08/21/19 09/07/19 Rx [Saturnino-[employer]els (iron-vit c)] tramadol 50 mg tablet 100 mg PO TID PRN #180 tab 08/30/19 09/07/19 Rx diphenhydramine HCl [Benadryl] 25 mg PO HS PRN 09/07/19 09/07/19 History Past Med/Surg History Medical History Non-small cell lung cancer (Acute) Osteoarthritis (Acute) Obstructive sleep apnea (Acute) Solitary thyroid nodule (Acute) Type 2 diabetes mellitus with stage 3 chronic kidney disease, without long-term current use of insulin (Acute) Urine, incontinence, stress female (Acute) Vitamin D deficiency (Acute) Hypertension (Chronic) Chemotherapy induced nausea and vomiting Emphysema lung (Chronic) Hyponatremia (Chronic) Paroxysmal atrial fibrillation (Chronic) Anxiety Asthma Atrial fibrillation on xarelto---follows with Dr. Wright Chronic back pain Chronic kidney disease, stage 3 (moderate) Chronic obstructive pulmonary disease inhalers Depression Enlarged thyroid gland just watching GERD (gastroesophageal reflux disease) Hx of gastric ulcer Hyperlipidemia Lung cancer, lower lobe 2017--left--sx, chemo On anticoagulant therapy On home oxygen therapy 2L n/c continuous Sleep apnea CPAP with 2L Surgical History History of appendectomy History of bronchoscopy 2016 History of cardiac cath 11/2017 @ [facility]--no stents History of cholecystectomy History of colonoscopy History of dilatation and curettage History of lobectomy of lung lower left lobe 2017 @ [facility] History of open reduction and internal fixation (ORIF) procedure R upper thigh x2--pins/rods in place History of tooth extraction all teeth History of total left knee replacement (TKR) History of total right knee replacement (TKR) Family History Sister Family history of reaction to anesthesia "had an allergic reaction", not sure what happened Mother Family history of diabetes mellitus Grandmother Family history of diabetes mellitus maternal Family/Other Family history of diabetes mellitus maternal uncle/maternal aunts Family/Other Family hx of colon cancer paternal cousin Social History Preferred Language: Austrian Communication Ability: Effective Artist Scientific Required: No Beliefs That Will Affect Care: None Current Living Situation: Alone Other Information That Helps Us Care for You: No Feels Safe at Home: Yes Safety Concerns: Feels Safe At This Time Smoking Status: Former smoker Smoking End Date: 2016 ; Second Hand Exposure: No ; Tobacco Cessation Education Requested by Patient: No Hx Alcohol Use: No Hx Substance Use: No Review of Systems Review of Systems: All systems reviewed & are unremarkable except as noted in HPI & below Additionally, patient reports occasional chills. No fever Physical Exam Physical Exam: General: patient resting comfortably, NAD, non-toxic in appearance, AA&O x 4, oxygen in place Skin: warm, dry, intact, + tophaceous gout with nodules on fingers, toes, elbows HEENT: NC/AT, left pupil slightly dilated and more sluggishly reactive, right pupil round and briskly reactive, EOMI, anicteric sclera, conjunctiva without injection, external ear normal to inspection and nontender, nares patent, dry mucus membranes, dentition intact, no oropharyngeal lesions, neck supple, trachea midline, no LAD, no thyromegaly, no JVD Heart: +S1/S2, irregularly irregular, bradycardic, no m/r/g Lungs: equal air entry bilaterally, no rales/rhonchi/wheezes Abd: +BS, soft, NT/ND, no masses/organomegaly/ascites, slight fullness of left lower quadrant Ext: warm, 2+ pulses in UE/LE bilaterally, no clubbing/cyanosis, trace pitting edema bilaterally Neuro: nonfocal, patient AA&O x 4, speech intact, no facial droop, moving all extremities on command with equal strength 5/5 Results & Data Vital Signs (Past 12 Hours) Vital Signs Temp Pulse Pulse Resp BP BP Pulse Ox 09/07/19 11:30 55 L 20 113/53 L 99 09/07/19 10:56 98 09/07/19 09:48 36.4 C L 78 22 142/56 H 98 Laboratory Results Lab Results 09/07/19 09/07/19 09/07/19 Range/Units 10:25 10:25 10:25 WBC 8.52 (4.8-10.8) K/uL RBC 3.67 L (4.2-5.4) M/uL Hgb 9.1 L (12.0-16.0) g/dL Hct 30.5 L (37-47) % MCV 83.1 (80-100) fL MCH 24.8 L (25-34) pg MCHC 29.8 L (32-36) g/dL RDW Std Deviation 65.5 H (36.4-46.3) fL RDW Coeff of Bruce 22.2 H (11.5-14.5) % Plt Count 275 (130-400) K/uL MPV 8.2 (7.4-10.4) fL Immature Gran % (Auto) 0.4 % Neut % (Auto) 75.9 % Lymph % (Auto) 14.6 % [place] % (Auto) 7.5 % Eos % (Auto) 1.1 % Baso % (Auto) 0.5 % Immature Gran # (Auto) 0.03 H (0.00-0.02) K/uL Neut # (Auto) 6.48 (1.4-6.5) K/uL Lymph # (Auto) 1.24 (1.2-3.4) K/uL [place] # (Auto) 0.64 H (0.11-0.59) K/uL Eos # (Auto) 0.09 (0-0.5) K/uL Baso # (Auto) 0.04 (0-0.2) K/uL Anisocytosis Present PT 12.2 H (9.0-12.0) Seconds INR 1.2 H (0.9-1.1) VBG pH (7.36-7.41) VBG pCO2 (38-50) mmHg VBG pO2 mmHg VBG HCO3 mmol/L VBG O2 Saturation % VBG Base Excess mEq/L Barometric Pressure mm/Hg Sodium 135 L (136-145) mmol/L Potassium 4.6 (3.5-5.1) mmol/L Chloride 99 (98-107) mmol/L Carbon Dioxide 30 (21-32) mmol/L Anion Gap 6.0 (3-11) BUN 15 (7-18) mg/dl Creatinine 1.32 H (0.6-1.2) mg/dl Est Cr Clr Drug Dosing 52.7 ml/min Est GFR ( Amer) 48.6 Est GFR (Non-Af Amer) 41.9 BUN/Creatinine Ratio 11.5 (10-20) Glucose 97 (70-99) mg/dl Calcium 9.5 (8.5-10.1) mg/dl Phosphorus 3.4 (2.5-4.9) mg/dl Magnesium 2.1 (1.8-2.4) mg/dl Total Bilirubin 0.5 (0.2-1) mg/dl AST 22 (15-37) U/L ALT 16 (12-78) U/L Alkaline Phosphatase 104 (45-117) U/L Total Creatine Kinase 23 L (26-192) U/L Troponin I < 0.015 (0-0.045) ng/ml NT-Pro-B Natriuret Pep (0-900) pg/ml Total Protein 7.1 (6.4-8.2) gm/dl Albumin 2.7 L (3.4-5.0) gm/dl Globulin 4.4 H (2.5-4.0) gm/dl Albumin/Globulin Ratio 0.6 L (0.9-2) Lipase 60 L (73-393) U/L TSH 1.830 (0.300-4.500) uIu/ml Urine Color Urine Appearance (Clear) Urine pH (4.5-7.5) Ur Specific Fill[place] (1.000-1.030) Urine Protein (Negative) Urine Glucose (UA) (Negative) Urine Ketones (Negative) Urine Blood (Negative) Urine Nitrite (Negative) Urine Bilirubin (Negative) Urine Urobilinogen (Negative) Ur Leukocyte Esterase (Negative) Urine WBC (Auto) (0-5) /hpf Urine RBC (Auto) (0-4) /hpf U Hyaline Cast (Auto) (0-5) /lpf U Epithel Cells (Auto) (0-5) /lpf Urine Bacteria (Auto) (Negative) 09/07/19 09/07/19 09/07/19 Range/Units 10:25 10:25 11:15 WBC (4.8-10.8) K/uL RBC (4.2-5.4) M/uL Hgb (12.0-16.0) g/dL Hct (37-47) % MCV (80-100) fL MCH (25-34) pg MCHC (32-36) g/dL RDW Std Deviation (36.4-46.3) fL RDW Coeff of Bruce (11.5-14.5) % Plt Count (130-400) K/uL MPV (7.4-10.4) fL Immature Gran % (Auto) % Neut % (Auto) % Lymph % (Auto) % [place] % (Auto) % Eos % (Auto) % Baso % (Auto) % Immature Gran # (Auto) (0.00-0.02) K/uL Neut # (Auto) (1.4-6.5) K/uL Lymph # (Auto) (1.2-3.4) K/uL [place] # (Auto) (0.11-0.59) K/uL Eos # (Auto) (0-0.5) K/uL Baso # (Auto) (0-0.2) K/uL Anisocytosis PT (9.0-12.0) Seconds INR (0.9-1.1) VBG pH 7.40 (7.36-7.41) VBG pCO2 50 (38-50) mmHg VBG pO2 22 mmHg VBG HCO3 30 mmol/L VBG O2 Saturation < 60.0 % VBG Base Excess 4.6 mEq/L Barometric Pressure 742.4 mm/Hg Sodium (136-145) mmol/L Potassium (3.5-5.1) mmol/L Chloride (98-107) mmol/L Carbon Dioxide (21-32) mmol/L Anion Gap (3-11) BUN (7-18) mg/dl Creatinine (0.6-1.2) mg/dl Est Cr Clr Drug Dosing ml/min Est GFR ( Amer) Est GFR (Non-Af Amer) BUN/Creatinine Ratio (10-20) Glucose (70-99) mg/dl Calcium (8.5-10.1) mg/dl Phosphorus (2.5-4.9) mg/dl Magnesium (1.8-2.4) mg/dl Total Bilirubin (0.2-1) mg/dl AST (15-37) U/L ALT (12-78) U/L Alkaline Phosphatase (45-117) U/L Total Creatine Kinase (26-192) U/L Troponin I (0-0.045) ng/ml NT-Pro-B Natriuret Pep 3289 H (0-900) pg/ml Total Protein (6.4-8.2) gm/dl Albumin (3.4-5.0) gm/dl Globulin (2.5-4.0) gm/dl Albumin/Globulin Ratio (0.9-2) Lipase (73-393) U/L TSH (0.300-4.500) uIu/ml Urine Color Yellow Urine Appearance Clear (Clear) Urine pH 7.0 (4.5-7.5) Ur Specific [place] 1.011 (1.000-1.030) Urine Protein 1+ H (Negative) Urine Glucose (UA) Negative (Negative) Urine Ketones Negative (Negative) Urine Blood Negative (Negative) Urine Nitrite Negative (Negative) Urine Bilirubin Negative (Negative) Urine Urobilinogen Negative (Negative) Ur Leukocyte Esterase Negative (Negative) Urine WBC (Auto) 1-5 (0-5) /hpf Urine RBC (Auto) 0-4 (0-4) /hpf U Hyaline Cast (Auto) 1-5 (0-5) /lpf U Epithel Cells (Auto) 10-20 H (0-5) /lpf Urine Bacteria (Auto) Negative (Negative) Diagnostic Findings CT head/brain wo con CLINICAL HISTORY: dizziness, generalized weakness COMPARISON STUDY: 08/18/2019 TECHNIQUE: Axial CT of the brain is performed from the vertex to the skull base. IV contrast was not administered for this examination. A dose lowering technique was utilized adhering to the principles of ALARA. CT DOSE: 614.27 mGy.cm FINDINGS: No intra or extra-axial mass lesions are visualized. There is no CT evidence of acute cortical infarction. There is no evidence of midline shift. There is no acute hemorrhage. No calvarial fractures are visualized. There are minimal white matter hypodensities likely on a small vessel basis. There is no evidence of pathologic ventricular dilatation. There is no evidence of acute sinusitis IMPRESSION: No acute intracranial findings Electronically signed by: Torres Li M.D. 09/07/2019 11:03 AM XR chest 1V portable CLINICAL HISTORY: 64 years-old Female presenting with Chest Pain. TECHNIQUE: Portable upright AP view of the chest was obtained. COMPARISON: 08/18/2019. FINDINGS: Atherosclerosis of the aortic arch. Cardiac silhouette enlarged. Pulmonary vascular prominence. Interstitial prominence likely relates to interlobular septal thickening. Elevation of the left hemidiaphragm as on prior exam. Minimal basilar opacities. Trace pleural effusions may be present. No pneumothorax. Degenerative changes of the shoulders. Upper abdomen normal. IMPRESSION: 1. Cardiomegaly with volume overload and congestive change. Findings are stable to minimally worsened from prior exam. Developing/early pulmonary edema is not excluded. 2. Bibasilar atelectasis greater on the left. Electronically signed by: Sarath Gordon M.D. 09/07/2019 10:15 AM Dictated: 09/07/19 1013 Transcribed: 09/07/19 1013 ECG Additional Comments: Appears to be atrial fibrillation at 54 bpm, leftward axis, QRS = 132, QTc = 504, no obvious ischemic changes Code Status & VTE Plan Code Status DNR/DNI per discussion with patient VTE Prophylaxis Plan VTE Prophylaxis will be ordered: Yes PG Care Time/CCT Total # of Minutes Spent Total Time Spent with Patient: Total time spent is greater than 50% in coordination of care (as documented) at patient's floor/unit and/or counseling patient: (1) Hyperlipidemia Hyperlipidemia type: unspecified Qualified Code(s): E78.5 - Hyperlipidemia, unspecified (2) CKD (chronic kidney disease) Chronic kidney disease stage: stage 3 (moderate) Qualified Code(s): N18.3 - Chronic kidney disease, stage 3 (moderate) (3) Hypertension Hypertension type: essential hypertension Qualified Code(s): I10 - Essential (primary) hypertension (4) COPD (chronic obstructive pulmonary disease) COPD type: emphysema Emphysema type: unspecified Qualified Code(s): J43.9 - Emphysema, unspecified (5) Gout Gout site: multiple sites Gout etiology: unspecified cause Chronicity: chronic Qualified Code(s): M1A.09X0 - Idiopathic chronic gout, multiple sites, without tophus (tophi) (6) Atrial fibrillation Atrial fibrillation type: unspecified Qualified Code(s): I48.91 - Unspecified atrial fibrillation
--- NOTE | 2019-09-07 15:08 | Emergency Department Note ---
Entered by Tawny Kim acting as a scribe for Hiram Cabrera MD History of Present Illness General Chief complaint: Fall Time Seen by Provider: 09/07/19 09:43 Source: patient and RN notes reviewed History of Present Illness Onset (ago): day(s) (couple) Location: left and right Pain Consistency: + other (mutiple episodes ) Quality: + other (weakness) Associated symptoms: + other (+lightheaded; +warmth to forehead; +low heart rate; -urinary symptoms); no cough and no fever/chills The patient is a 64 year old female, with past medical history of CML, CKD, HTN, and Type 2 Diabetes, who presents to the Emergency Room with complaints of multiple episodes of generalized weakness over the last couple days. The patient notes she has been experiencing weakness in episodes, and she notes it is not constant. The patient reports that during each episode, her legs feel like rubber or jell-o. The patient reports she had an episode of weakness just prior to arrival. The patient states she was moving from one chair to another when her knees became weak. The patient states she had to lower herself to the ground at that point. The patient denies falling to the ground. The patient reports she has also been lightheaded, and she notes heat/warmth to her forehead. The patient denies sweating, a fever, cough, or urinary symptoms. The RN states the patients heart rate was found to be in between 30s-50s by EMS. The patient states that experiencing low heart rate is typical for her. The patient states she was getting treatment for her CML, but she notes treatment has been put on hold for the time being because it is believed that her CML treatment is the reason for her being sick and weak recently. The patient reports she was told she had an enlarged heart during her last ED visit. Home Medications Home Medications Medication Instructions Recorded Confirmed Type Xarelto 20 mg PO HS 09/01/18 09/07/19 History albuterol sulfate [Ventolin HFA] 2 puff INHALATION QID PRN 09/01/18 09/07/19 History atorvastatin 20 mg PO HS 09/01/18 09/07/19 History cholecalciferol (vitamin D3) 2,000 unit PO QAM 09/01/18 09/07/19 History [Vitamin D3] docusate sodium [Stool Softener] 100 mg PO BID PRN 09/01/18 09/07/19 History fluticasone propionate [Flonase 1 spray INTRANASAL BID PRN 09/01/18 09/07/19 History Allergy Relief] loratadine 10 mg PO QAM PRN 09/01/18 09/07/19 History magnesium oxide 400 mg (241.3 mg 400 mg PO DAILY #30 tab 04/07/19 09/07/19 Rx magnesium) tablet montelukast 10 mg tablet 10 mg PO DAILY #30 tab 04/19/19 09/07/19 Rx metoprolol succinate ER 100 mg 100 mg PO TID #270 tab 06/16/19 09/07/19 Rx tablet,extended release 24 hr flecainide 100 mg tablet 100 mg PO TID tab 06/22/19 09/07/19 History spironolactone 50 mg tablet 50 mg PO BID tab 06/22/19 09/07/19 History umeclidinium 62.5 mcg/actuation 1 puffs INH DAILY 06/22/19 09/07/19 History blister powder for inhalation dasatinib 100 mg tablet 100 mg PO DAILY 07/07/19 09/07/19 History probenecid 500 mg tablet 250 mg PO BID #90 tab 08/09/19 09/07/19 Rx duloxetine 20 mg capsule,delayed 40 mg PO DAILY #60 cap 08/10/19 09/07/19 Rx release Symbicort 2 puff INHALATION BID 08/18/19 09/07/19 History calcitriol 0.25 mcg PO 3XWK 08/18/19 09/07/19 History famotidine 20 mg PO QAM PRN #30 tab 08/21/19 09/07/19 Rx ferrous fumarate-vitamin C 1 tab PO DAILY #30 tab 08/21/19 09/07/19 Rx [Saturnino-Sequels (iron-vit c)] tramadol 50 mg tablet 100 mg PO TID PRN #180 tab 08/30/19 09/07/19 Rx diphenhydramine HCl [Benadryl] 25 mg PO HS PRN 09/07/19 09/07/19 History Allergies Allergy/AdvReac Type Severity Reaction Status Date / Time diltiazem Allergy Severe SHORTNESS Verified 09/07/19 10:24 OF BREATH AND SWELLING OF HANDS AND FACE adhesive Allergy Mild BLISTERS Verified 09/07/19 10:24 latex Allergy Mild RASH Verified 09/07/19 10:24 indomethacin Allergy Unknown per pulm Verified 09/07/19 10:24 note Penicillins Allergy Unknown WELTS IN Verified 09/07/19 10:24 MOUTH AND SPREAD TO BODY nut - unspecified Allergy . Verified 09/07/19 10:24 peanut Allergy . Verified 09/07/19 10:24 codeine AdvReac Mild N&V&GI PAIN Verified 09/07/19 10:24 paroxetine AdvReac Mild GI SYMPTOMS Verified 09/07/19 10:24 varenicline AdvReac Mild GI SYMPTOMS Verified 09/07/19 10:24 Past Med/Surg History Medical History Non-small cell lung cancer (Acute) Osteoarthritis (Acute) Obstructive sleep apnea (Acute) Solitary thyroid nodule (Acute) Type 2 diabetes mellitus with stage 3 chronic kidney disease, without long-term current use of insulin (Acute) Urine, incontinence, stress female (Acute) Vitamin D deficiency (Acute) Hypertension (Chronic) Chemotherapy induced nausea and vomiting Emphysema lung (Chronic) Hyponatremia (Chronic) Paroxysmal atrial fibrillation (Chronic) Anxiety Asthma Atrial fibrillation on xarelto---follows with Dr. Wright Chronic back pain Chronic kidney disease, stage 3 (moderate) Chronic obstructive pulmonary disease inhalers Depression Enlarged thyroid gland just watching GERD (gastroesophageal reflux disease) Hx of gastric ulcer Hyperlipidemia Lung cancer, lower lobe 2017--left--sx, chemo On anticoagulant therapy On home oxygen therapy 2L n/c continuous Sleep apnea CPAP with 2L Surgical History History of appendectomy History of bronchoscopy 2017 History of cardiac cath 11/2017 @ [facility]--no stents History of cholecystectomy History of colonoscopy History of dilatation and curettage History of lobectomy of lung lower left lobe 2017 @ [facility] History of open reduction and internal fixation (ORIF) procedure R upper thigh x2--pins/rods in place History of tooth extraction all teeth History of total left knee replacement (TKR) History of total right knee replacement (TKR) Family History Sister Family history of reaction to anesthesia "had an allergic reaction", not sure what happened Mother Family history of diabetes mellitus Grandmother Family history of diabetes mellitus maternal Family/Other Family history of diabetes mellitus maternal uncle/maternal aunts Family/Other Family hx of colon cancer paternal cousin Social History Preferred Language: Zambian Communication Ability: Effective Crystal Calibrator Required: No Beliefs That Will Affect Care: None Current Living Situation: Alone Other Information That Helps Us Care for You: No Feels Safe at Home: Yes Safety Concerns: Feels Safe At This Time Smoking Status: Former smoker Smoking End Date: 2016 ; Second Hand Exposure: No ; Tobacco Cessation Education Requested by Patient: No Hx Alcohol Use: No Hx Substance Use: No Review of Systems See HPI for pertinent positives & negatives. and A total of 10 systems reviewed and were otherwise negative Physical Exam Vital Signs Vital Signs - 24 hr 09/07/19 09:48 09/07/19 10:56 09/07/19 11:30 Temperature 36.4 C L Temperature Source Oral Sepsis Recent Fever Within 48 Hours No Sepsis Action Taken by Nursing No Action Required Pulse Rate 78 Pulse Rate [Apical] 55 L Pulse Rate from SpO2 Sensor Respiratory Rate 22 20 Respiratory Effort / Characteristics Non-Labored Spontaneous Respiratory Depth Normal Blood Pressure 142/56 H Blood Pressure [Left Arm] 113/53 L Blood Pressure Mean 84 Blood Pressure Mean [Left Arm] 73 Blood Pressure Position Lying Pulse Oximetry 98 98 99 Oxygen Delivery Method Nasal Cannula Nasal Cannula Nasal Cannula Oxygen Flow Rate 2 2 2 09/07/19 11:31 09/07/19 12:30 09/07/19 13:00 Temperature Temperature Source Sepsis Recent Fever Within 48 Hours Sepsis Action Taken by Nursing Pulse Rate 66 57 L 55 L Pulse Rate [Apical] Pulse Rate from SpO2 Sensor 53 L 59 L 53 L Respiratory Rate 13 18 15 Respiratory Effort / Characteristics Respiratory Depth Blood Pressure 115/63 109/52 L 120/48 L Blood Pressure [Left Arm] Blood Pressure Mean 80 71 72 Blood Pressure Mean [Left Arm] Blood Pressure Position Pulse Oximetry 99 100 99 Oxygen Delivery Method Oxygen Flow Rate GENERAL: Awake, alert, chronically ill-appearing, in no distress HENT: Normocephalic, atraumatic. Oropharynx with dry mucous membranes and otherwise unremarkable. EYES: Normal conjunctiva. Sclera non-icteric. EOMI. No nystamgus. PEARRL. NECK: Supple. No nuchal rigidity. FROM. No JVD. RESPIRATORY: CTAB. CARDIAC: Regular rate, irregular rhythm. Extremities warm and well perfused. Pulses equal. ABDOMEN: Soft, non-distended. No tenderness to palpation. No rebound or guarding. No masses. RECTAL: Deferred. MUSCULOSKELETAL: Chest examination reveals no tenderness. The back is symmetrical on inspection without obvious abnormality. There is no CVA ten derness to palpation. No joint edema. LOWER EXTREMITIES: Calves are equal size bilaterally and non-tender. No edema. No discoloration. NEURO: Normal sensorium. No sensory or motor deficits noted. Cerebellar function intact, including finger to nose, alternating palms, heel to hall. 5/5 strength and SILT x 4 extremities. SKIN: No rash or jaundice noted. Course 46: Past medical records reviewed. The patient was evaluated in room B8. A complete history and physical exam was performed. 1104: I reviewed the patient's [facility]. Dr. Cunningham will evaluate the patient for further management. Consultations Consultation #1: I reviewed the patient's case with Dr. Cunningham-[facility]. Dr. Cunningham will evaluate the patient for further management. Time: 11:04 Administered Medications Atorvastatin Calcium (Lipitor) 20 mg PO HS JOSÉ LUIS Stop: 10/07/19 20:59 Last Admin: 09/07/19 20:44 Dose: 20 mg Documented by: [id number] Budesonide/Formoterol Fumarate (Symbicort 160mcg/4.5mcg) 2 puffs INH BID JOSÉ LUIS Stop: 10/07/19 20:59 Last Admin: 09/07/19 20:48 Dose: 2 puffs Documented by: [id number] Flecainide Acetate (Tambocor) 50 mg PO TID JOSÉ LUIS Stop: 10/07/19 15:30 Last Admin: 09/07/19 20:49 Dose: 50 mg Documented by: [id number] Admin: 09/07/19 17:44 Dose: 50 mg Documented by: [id number] Metoprolol Tartrate (Lopressor) 100 mg PO BID JOSÉ LUIS Stop: 10/07/19 20:59 Last Admin: 09/07/19 20:47 Dose: Not Given Documented by: [id number] Montelukast Sodium (Singulair) 10 mg PO QPM JOSÉ LUIS Stop: 10/07/19 20:59 Last Admin: 09/07/19 20:48 Dose: 10 mg Documented by: [id number] Probenecid (Probenecid) 250 mg PO BID JOSÉ LUIS Stop: 10/07/19 20:59 Last Admin: 09/07/19 20:48 Dose: 250 mg Documented by: [id number] Rivaroxaban (Xarelto) 20 mg PO QDD JOSÉ LUIS Stop: 10/07/19 16:29 Last Admin: 09/07/19 17:46 Dose: 20 mg Documented by: [id number] Spironolactone (Aldactone) 50 mg PO BID17 JOSÉ LUIS Stop: 10/07/19 16:59 Last Admin: 09/07/19 17:46 Dose: 50 mg Documented by: [id number] Discontinued Medications Bisacodyl (Dulcolax) 10 mg GA ONE ONE Stop: 09/07/19 16:16 Last Admin: 09/07/19 18:03 Dose: 10 mg Documented by: [id number] Medical Decision Making Differential Diagnosis Differential diagnosis: Etiologies such as metabolic, infection, hypo/hyperglycemia, electrolyte abnormalities, cardiac sources, intracerebral event, toxicologic, neurologic, as well as others were entertained. Medical Records Attestation: I reviewed the patient's medical records. Home Medications Current Medication List: was personally reviewed by me Laboratory Data Attestation: I reviewed the patient's lab results. Result diagrams: 09/07/19 10:25 09/07/19 10:25 Lab Results 09/07/19 09/07/19 09/07/19 Range/Units 10:25 10:25 10:25 WBC 8.52 (4.8-10.8) K/uL RBC 3.67 L (4.2-5.4) M/uL Hgb 9.1 L (12.0-16.0) g/dL Hct 30.5 L (37-47) % MCV 83.1 (80-100) fL MCH 24.8 L (25-34) pg MCHC 29.8 L (32-36) g/dL RDW Std Deviation 65.5 H (36.4-46.3) fL RDW Coeff of Bruce 22.2 H (11.5-14.5) % Plt Count 275 (130-400) K/uL MPV 8.2 (7.4-10.4) fL Immature Gran % (Auto) 0.4 % Neut % (Auto) 75.9 % Lymph % (Auto) 14.6 % Hughes % (Auto) 7.5 % Eos % (Auto) 1.1 % Baso % (Auto) 0.5 % Immature Gran # (Auto) 0.03 H (0.00-0.02) K/uL Neut # (Auto) 6.48 (1.4-6.5) K/uL Lymph # (Auto) 1.24 (1.2-3.4) K/uL Hughes # (Auto) 0.64 H (0.11-0.59) K/uL Eos # (Auto) 0.09 (0-0.5) K/uL Baso # (Auto) 0.04 (0-0.2) K/uL Anisocytosis Present ESR (0-21) mm/hr PT 12.2 H (9.0-12.0) Seconds INR 1.2 H (0.9-1.1) VBG pH (7.36-7.41) VBG pCO2 (38-50) mmHg VBG pO2 mmHg VBG HCO3 mmol/L VBG O2 Saturation % VBG Base Excess mEq/L Barometric Pressure mm/Hg Sodium 135 L (136-145) mmol/L Potassium 4.6 (3.5-5.1) mmol/L Chloride 99 (98-107) mmol/L Carbon Dioxide 30 (21-32) mmol/L Anion Gap 6.0 (3-11) BUN 15 (7-18) mg/dl Creatinine 1.32 H (0.6-1.2) mg/dl Est Cr Clr Drug Dosing 52.7 ml/min Est GFR ( Amer) 48.6 Est GFR (Non-Af Amer) 41.9 BUN/Creatinine Ratio 11.5 (10-20) Glucose 97 (70-99) mg/dl Calcium 9.5 (8.5-10.1) mg/dl Phosphorus 3.4 (2.5-4.9) mg/dl Magnesium 2.1 (1.8-2.4) mg/dl Total Bilirubin 0.5 (0.2-1) mg/dl AST 22 (15-37) U/L ALT 16 (12-78) U/L Alkaline Phosphatase 104 (45-117) U/L Total Creatine Kinase 23 L (26-192) U/L Troponin I < 0.015 (0-0.045) ng/ml C-Reactive Protein (0-0.29) mg/dl NT-Pro-B Natriuret Pep (0-900) pg/ml Total Protein 7.1 (6.4-8.2) gm/dl Albumin 2.7 L (3.4-5.0) gm/dl Globulin 4.4 H (2.5-4.0) gm/dl Albumin/Globulin Ratio 0.6 L (0.9-2) Lipase 60 L (73-393) U/L TSH 1.830 (0.300-4.500) uIu/ml Random Cortisol mcg/dl Urine Color Urine Appearance (Clear) Urine pH (4.5-7.5) Ur Specific [place] (1.000-1.030) Urine Protein (Negative) Urine Glucose (UA) (Negative) Urine Ketones (Negative) Urine Blood (Negative) Urine Nitrite (Negative) Urine Bilirubin (Negative) Urine Urobilinogen (Negative) Ur Leukocyte Esterase (Negative) Urine WBC (Auto) (0-5) /hpf Urine RBC (Auto) (0-4) /hpf U Hyaline Cast (Auto) (0-5) /lpf U Epithel Cells (Auto) (0-5) /lpf Urine Bacteria (Auto) (Negative) 09/07/19 09/07/19 09/07/19 Range/Units 10:25 10:25 10:25 WBC (4.8-10.8) K/uL RBC (4.2-5.4) M/uL Hgb (12.0-16.0) g/dL Hct (37-47) % MCV (80-100) fL MCH (25-34) pg MCHC (32-36) g/dL RDW Std Deviation (36.4-46.3) fL RDW Coeff of Bruce (11.5-14.5) % Plt Count (130-400) K/uL MPV (7.4-10.4) fL Immature Gran % (Auto) % Neut % (Auto) % Lymph % (Auto) % Hughes % (Auto) % Eos % (Auto) % Baso % (Auto) % Immature Gran # (Auto) (0.00-0.02) K/uL Neut # (Auto) (1.4-6.5) K/uL Lymph # (Auto) (1.2-3.4) K/uL Hughes # (Auto) (0.11-0.59) K/uL Eos # (Auto) (0-0.5) K/uL Baso # (Auto) (0-0.2) K/uL Anisocytosis ESR > 90 H (0-21) mm/hr PT (9.0-12.0) Seconds INR (0.9-1.1) VBG pH 7.40 (7.36-7.41) VBG pCO2 50 (38-50) mmHg VBG pO2 22 mmHg VBG HCO3 30 mmol/L VBG O2 Saturation < 60.0 % VBG Base Excess 4.6 mEq/L Barometric Pressure 742.4 mm/Hg Sodium (136-145) mmol/L Potassium (3.5-5.1) mmol/L Chloride (98-107) mmol/L Carbon Dioxide (21-32) mmol/L Anion Gap (3-11) BUN (7-18) mg/dl Creatinine (0.6-1.2) mg/dl Est Cr Clr Drug Dosing ml/min Est GFR ( Amer) Est GFR (Non-Af Amer) BUN/Creatinine Ratio (10-20) Glucose (70-99) mg/dl Calcium (8.5-10.1) mg/dl Phosphorus (2.5-4.9) mg/dl Magnesium (1.8-2.4) mg/dl Total Bilirubin (0.2-1) mg/dl AST (15-37) U/L ALT (12-78) U/L Alkaline Phosphatase (45-117) U/L Total Creatine Kinase (26-192) U/L Troponin I (0-0.045) ng/ml C-Reactive Protein (0-0.29) mg/dl NT-Pro-B Natriuret Pep 3289 H (0-900) pg/ml Total Protein (6.4-8.2) gm/dl Albumin (3.4-5.0) gm/dl Globulin (2.5-4.0) gm/dl Albumin/Globulin Ratio (0.9-2) Lipase (73-393) U/L TSH (0.300-4.500) uIu/ml Random Cortisol mcg/dl Urine Color Urine Appearance (Clear) Urine pH (4.5-7.5) Ur Specific [place] (1.000-1.030) Urine Protein (Negative) Urine Glucose (UA) (Negative) Urine Ketones (Negative) Urine Blood (Negative) Urine Nitrite (Negative) Urine Bilirubin (Negative) Urine Urobilinogen (Negative) Ur Leukocyte Esterase (Negative) Urine WBC (Auto) (0-5) /hpf Urine RBC (Auto) (0-4) /hpf U Hyaline Cast (Auto) (0-5) /lpf U Epithel Cells (Auto) (0-5) /lpf Urine Bacteria (Auto) (Negative) 09/07/19 09/07/19 09/07/19 Range/Units 10:32 10:32 11:15 WBC (4.8-10.8) K/uL RBC (4.2-5.4) M/uL Hgb (12.0-16.0) g/dL Hct (37-47) % MCV (80-100) fL MCH (25-34) pg MCHC (32-36) g/dL RDW Std Deviation (36.4-46.3) fL RDW Coeff of Bruce (11.5-14.5) % Plt Count (130-400) K/uL MPV (7.4-10.4) fL Immature Gran % (Auto) % Neut % (Auto) % Lymph % (Auto) % Hughes % (Auto) % Eos % (Auto) % Baso % (Auto) % Immature Gran # (Auto) (0.00-0.02) K/uL Neut # (Auto) (1.4-6.5) K/uL Lymph # (Auto) (1.2-3.4) K/uL Hughes # (Auto) (0.11-0.59) K/uL Eos # (Auto) (0-0.5) K/uL Baso # (Auto) (0-0.2) K/uL Anisocytosis ESR (0-21) mm/hr PT (9.0-12.0) Seconds INR (0.9-1.1) VBG pH (7.36-7.41) VBG pCO2 (38-50) mmHg VBG pO2 mmHg VBG HCO3 mmol/L VBG O2 Saturation % VBG Base Excess mEq/L Barometric Pressure mm/Hg Sodium (136-145) mmol/L Potassium (3.5-5.1) mmol/L Chloride (98-107) mmol/L Carbon Dioxide (21-32) mmol/L Anion Gap (3-11) BUN (7-18) mg/dl Creatinine (0.6-1.2) mg/dl Est Cr Clr Drug Dosing ml/min Est GFR ( Amer) Est GFR (Non-Af Amer) BUN/Creatinine Ratio (10-20) Glucose (70-99) mg/dl Calcium (8.5-10.1) mg/dl Phosphorus (2.5-4.9) mg/dl Magnesium (1.8-2.4) mg/dl Total Bilirubin (0.2-1) mg/dl AST (15-37) U/L ALT (12-78) U/L Alkaline Phosphatase (45-117) U/L Total Creatine Kinase (26-192) U/L Troponin I (0-0.045) ng/ml C-Reactive Protein 3.38 H (0-0.29) mg/dl NT-Pro-B Natriuret Pep (0-900) pg/ml Total Protein (6.4-8.2) gm/dl Albumin (3.4-5.0) gm/dl Globulin (2.5-4.0) gm/dl Albumin/Globulin Ratio (0.9-2) Lipase (73-393) U/L TSH (0.300-4.500) uIu/ml Random Cortisol 20.31 mcg/dl Urine Color Yellow Urine Appearance Clear (Clear) Urine pH 7.0 (4.5-7.5) Ur Specific [place] 1.011 (1.000-1.030) Urine Protein 1+ H (Negative) Urine Glucose (UA) Negative (Negative) Urine Ketones Negative (Negative) Urine Blood Negative (Negative) Urine Nitrite Negative (Negative) Urine Bilirubin Negative (Negative) Urine Urobilinogen Negative (Negative) Ur Leukocyte Esterase Negative (Negative) Urine WBC (Auto) 1-5 (0-5) /hpf Urine RBC (Auto) 0-4 (0-4) /hpf U Hyaline Cast (Auto) 1-5 (0-5) /lpf U Epithel Cells (Auto) 10-20 H (0-5) /lpf Urine Bacteria (Auto) Negative (Negative) Imaging Data Radiologist's Impression: Radiology results as stated below per my review and the radiologist's interpretation: XR chest 1V portable CLINICAL HISTORY: 64 years-old Female presenting with Chest Pain. TECHNIQUE: Portable upright AP view of the chest was obtained. COMPARISON: 08/18/2019. FINDINGS: Atherosclerosis of the aortic arch. Cardiac silhouette enlarged. Pulmonary vascular prominence. Interstitial prominence likely relates to interlobular septal thickening. Elevation of the left hemidiaphragm as on prior exam. Minimal basilar opacities. Trace pleural effusions may be present. No pneumothorax. Degenerative changes of the shoulders. Upper abdomen normal. IMPRESSION: 1. Cardiomegaly with volume overload and congestive change. Findings are stable to minimally worsened from prior exam. Developing/early pulmonary edema is not excluded. 2. Bibasilar atelectasis greater on the left. Electronically signed by: Sarath Gordon M.D. 09/07/2019 10:[address] head/brain wo con CLINICAL HISTORY: dizziness, generalized weakness COMPARISON STUDY: 08/18/2019 TECHNIQUE: Axial CT of the brain is performed from the vertex to the skull base. IV contrast was not administered for this examination. A dose lowering technique was utilized adhering to the principles of ALARA. CT DOSE: 614.27 mGy.cm FINDINGS: No intra or extra-axial mass lesions are visualized. There is no CT evidence of acute cortical infarction. There is no evidence of midline shift. There is no acute hemorrhage. No calvarial fractures are visualized. There are minimal white matter hypodensities likely on a small vessel basis. There is no evidence of pathologic ventricular dilatation. There is no evidence of acute sinusitis IMPRESSION: No acute intracranial findings Electronically signed by: Torres Li M.D. 09/07/2019 11:03 AM ECG Data Attestation: I personally reviewed and interpreted this ECG as follows: Indication: + weakness Rate (beats per minute): 54 Rhythm: + atrial fibrillation ECG Scotts: no Left axis deviation and no Right axis deviation ECG Findings: + Other (Non-specific intraventricular block; QRS 132; QTC 504 ) Comparison ECG Date: from (08/18/19) Change: the following changes noted (QRS has increased) Blood Pressure Blood Pressure Findings: Elevated blood pressure Blood Pressure Disposition: further management by hospitalist MDM Narrative The patient is a pleasant 64-year-old woman with a past medical history of CML previously on chemotherapy, A. fib who presents emergency department with worsening generalized weakness and intermittent episodes of lightheadedness with episode prior to arrival of feeling lightheaded with warmth over her head and generalized weakness where she had to lower herself to the ground, found by EMS with heart rate ranging from the 30s-50s per hpi. The patient reports she will frequently get low heart rates for some time and is on Metoprolol and Flecainide. She denies any recent illnesses and denies cough, congestion, nausea, vomiting, diarrhea, urinary symptoms. On arrival the patient is fatigued appearing, chronically ill but no acute distress, afebrile with heart rate in the 50s in atrial fibrillation and vital signs otherwise stable. She is neurologically intact. EKG demonstrates A. fib with heart rate in the 50s without overt acute ischemia. QRS is increased from prior. Chest x-ray with similar evidence of volume overload to prior although the patient denies any worsening shortness of breath. WBC and platelets within normal limits. H/H9 0.1/30.5 similar to prior range of values. VBG unremarkable. History without acidosis. Creatinine 1.3 within prior range of values. Electrolytes and LFTs unremarkable. Troponin negative/undetectable. CPK unremarkable. BNP 3200 decreased from prior admission. UA without evidence of infection. CT head negative for acute process. The patient's symptoms occurring in the setting of observed bradycardia by EMS reasonable to admit the patient for further radha toring of her heart rate and possible titration of her medications. Patient is agreeable with this. Case was discussed with Dr. Cunningham, [facility] hospitalist, who will evaluate the patient for admission. Impression & Plan Near syncope, Atrial fibrillation, Symptomatic bradycardia, On rivaroxaban therapy Discharge Plan Visit Data *Final* Discharge Date/Time: 09/07/19 13:30 Chief Complaint: Fall ED Provider: Hiram Cabrera Discharge Problem: Near syncope, Atrial fibrillation, Symptomatic bradycardia, On rivaroxaban therapy Patient Disposition: Admitted As Inpatient Discharge Instructions Interventions: ED Discharge Assessment Last Done: 09/07/19 13:30 The scribe's documentation has been prepared under my direction and personally reviewed by me in its entirety. I confirm that the note above accurately reflects all work, treatment, procedures, and medical decision making performed by me.
[2019-09-07] MEDS ORDERED: DOCUSATE SODIUM 100 MG CAP PO PRN (15:31)
[2019-09-07] MEDS ORDERED: ALBUTEROL HFA 8 GM INHALER INH PRN (15:31)
[2019-09-07] MEDS ORDERED: ACETAMINOPHEN 325 MG TAB PO PRN (15:31)
[2019-09-07] MEDS ORDERED: TRAMADOL HCL 50 MG TABLET PO PRN (15:31)
[2019-09-07] MEDS ORDERED: BISACODYL 10 MG SUPP PR PRN (15:31)
[2019-09-07] MEDS ORDERED: ALBUTEROL 0.5% NEB SOLN 2.5 MG/0.5 ML VIAL NEB PRN (15:31)
[2019-09-07] MEDS ORDERED: FAMOTIDINE 20 MG TAB PO PRN (15:31)
[2019-09-07] MEDS ORDERED: POLYETHYLENE (MIRALAX) 17 GM PACK PO PRN (15:31)
[2019-09-07] MEDS ORDERED: BISACODYL 10 MG SUPP PR ONE (16:15)
[2019-09-07] MEDS: FLECAINIDE ACETATE 100 MG TABLET PO SCH ×2 (17:44→20:49)
[2019-09-07] MEDS: SPIRONOLACTONE 25 MG TAB PO SCH (17:46)
[2019-09-07] MEDS: RIVAROXABAN 20 MG TAB PO SCH (17:46)
[2019-09-07] MEDS: METOPROLOL TARTRATE 100 MG TAB PO SCH (20:47)
[2019-09-07] MEDS: BUDESONIDE/FORMOTEROL FUMARATE 160/4.5 60 PUFFS/INHALER INH SCH (20:48)
[2019-09-07] MEDS: PROBENECID 500 MG TAB PO SCH (20:48)
[2019-09-07] MEDS ORDERED: ATORVASTATIN 20 MG TAB PO SCH (21:00)
[2019-09-07] MEDS ORDERED: MONTELUKAST SODIUM 10 MG TABLET PO SCH (21:00)
[2019-09-08 07:04] LABS: Basophils # (auto) 0.05 K/uL (0-0.2); Basophils % (auto) 0.8 %; Eosinophils # (auto) 0.11 K/uL (0-0.5); Eosinophils % (auto) 1.8 %; Hematocrit (blood only) 29.9 % (37-47); Hemoglobin 8.9 g/dL (12.0-16.0); Immature Granulocytes # (auto) 0.02 K/uL (0.00-0.02); Immature Granulocytes % (auto) 0.3 %; Mean Corpuscular Hemoglobin 24.9 pg (25-34); Mean Corpuscular Hgb Conc 29.8 g/dL (32-36); Mean Corpuscular Volume 83.5 fL (80-100); Mean Platelet Volume 8.5 fL (7.4-10.4); Monocytes % (auto) 8.2 %; Neutrophils % (auto) 65.9 %; Platelet Count 307 K/uL (130-400); RDW Coefficient of Variation 22.5 % (11.5-14.5); RDW Standard Deviation 66.7 fL (36.4-46.3); Red Blood Count 3.58 M/uL (4.2-5.4); White Blood Count 6.08 K/uL (4.8-10.8)
[2019-09-08 07:31] LABS: BUN Creatinine Ratio 12.4 (10-20); Calcium 9.4 mg/dl (8.5-10.1); Creatinine Clr Calc Pharmacy 56.8 ml/min; Est GFR (African American) 54.5; Est GFR (Non-African American) 47.1; Potassium 4.2 mmol/L (3.5-5.1)
[2019-09-08 07:34] LABS: Anisocytosis Present
[2019-09-08] MEDS: FLECAINIDE ACETATE 100 MG TABLET PO SCH (08:33)
[2019-09-08] MEDS: SPIRONOLACTONE 25 MG TAB PO SCH ×2 (08:35→16:45)
[2019-09-08] MEDS: PROBENECID 500 MG TAB PO SCH (08:36)
[2019-09-08] MEDS: BUDESONIDE/FORMOTEROL FUMARATE 160/4.5 60 PUFFS/INHALER INH SCH (08:37)
[2019-09-08] MEDS: METOPROLOL TARTRATE 100 MG TAB PO SCH (08:37)
[2019-09-08] MEDS ORDERED: TIOTROPIUM BROMIDE 5 PUFF/90 MCG INH INH SCH (09:00)
[2019-09-08] MEDS ORDERED: DULOXETINE HCL 20 MG CAP PO SCH (09:00)
[2019-09-08] MEDS ORDERED: NON-FORMULARY MEDICATION (Umeclidinium [Incruse Ellipta] 1 PUFFS) INH SCH (09:00)
[2019-09-08] MEDS ORDERED: MAGNESIUM OXIDE 400 MG TAB PO SCH (09:00)
[2019-09-08] MEDS ORDERED: FERROUS FUMARATE/ASCORBIC ACID 65 MG CAPCR PO SCH (09:00)
--- NOTE | 2019-09-08 09:07 | Cardiology Consultation ---
Date of Consultation September 08, 2019 Assessment & Plan (1) Atrial fibrillation: (2) Bradycardia: (3) Weakness: (4) Severe anemia: (5) CML (chronic myelocytic leukemia): Patient was recently admitted in August with fluid retention felt to be secondary to Sprycel for her CML. Since discharge has had significant weakness at home resulting in several minor falls. She was admitted yesterday with weakness and bradycardia. No syncopal events. Suspect her symptoms are multifactorial given her bradycardia, CML, significant anemia and iron deficiency and deconditioning. Telemetry consistent with sinus rhythm with frequent PACs and heart rate has been 50-70s. Agree with reducing metoprolol to 100 mg bid (was on 100 mg tid). Recommend increasing flecainide to 100 mg bid (was on 100 mg tid). Continue anticoagulation if no contraindication from heme/onc standpoint. Patient should followup with her usual fuse cutter, Dr. Wright, after discharge. History of Present Illness Attending Physician: Cecilio Rodriguez History of Present Illness Ms. 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 She was recently admitted from 08/18/19 to 08/21/19 with acute fluid retention and fatigue. At that time Dr. Lucero discontinued her Sprycel as he felt it was causing her fluid retention. She was noted to be significantly anemic and iron deficient. Echo at that time with normal LV systolic function. She was discharged home and states she has been feeling very weak since. She was admitted yesterday after an episode of significant weakness in which she could not get off the floor and called 911. Reportedly heart rate was in the 30s. She reports heart rate at home typically is in the 50-70s. She lives alone and has been getting home PT and nursing care. When walking around her home she has significant lower extremity weakness and describes her legs as feeling "wobbly." Her symptoms are most noticeable in her thighs. She has not had any significant falls but often has to sit down on the floor when trying to walk around her home due to the significant weakness. She notes occasional lightheadedness when changing positions. No near syncope or syncope. Also notes episodes while seated in which everything looks "fuzzy" and she loses track of time. Reports she is typically symptomatic with palpitations when in atrial fibrillation and has not had any recent palpitations. No chest pain. Shortness of breath with little exertion but has improved since last hospitalization. Lower extremity edema has also improved. No orthopnea or PND. She uses supplemental oxygen. She also notes recently stopped prednisone which she had been on for several months for her tophaceous gout. Still has evidence of a significant anemia although hemoglobin has improved overall. Troponin is negative. EKG on admission atrial fibrillation at 54 bpm. Her metoprolol succinate 100 mg tid was switched to metoprolol tartrate 100 mg bid and flecainide 100 mg tid was switched to 50 mg tid. Past medical and surgical history 1. Hypertension 2. Hypercholesterolemia 3. Paroxysmal atrial fibrillation 4. Diabetes mellitus 5. COPD 6. Chronic renal failure 7. GERD 8. History of gastric ulcer 9. Obesity 10. Obstructive sleep apnea 11. DJD 12. Vitamin-D deficiency 13. Anxiety/depression 14. Gout 15. Non-small cell lung carcinoma 16. Left lower lobectomy-December 2016 17. CML-April 2019 18. Chronic low back pain 19. Appendectomy 20. Cholecystectomy 21. D&C 22. ORIF right femur 23. Bilateral TKR Social history No tobacco or alcohol Family history Noncontributory Allergies Allergy/AdvReac Type Severity Reaction Status Date / Time diltiazem Allergy Severe SHORTNESS Verified 09/07/19 10:24 OF BREATH AND SWELLING OF HANDS AND FACE adhesive Allergy Mild BLISTERS Verified 09/07/19 10:24 latex Allergy Mild RASH Verified 09/07/19 10:24 indomethacin Allergy Unknown per pulm Verified 09/07/19 10:24 note Penicillins Allergy Unknown WELTS IN Verified 09/07/19 10:24 MOUTH AND SPREAD TO BODY nut - unspecified Allergy . Verified 09/07/19 10:24 peanut Allergy . Verified 09/07/19 10:24 codeine AdvReac Mild N&V&GI PAIN Verified 09/07/19 10:24 paroxetine AdvReac Mild GI SYMPTOMS Verified 09/07/19 10:24 varenicline AdvReac Mild GI SYMPTOMS Verified 09/07/19 10:24 Home Medications Home Medications Medication Instructions Recorded Confirmed Type Xarelto 20 mg PO HS 09/01/18 09/07/19 History albuterol sulfate [Ventolin HFA] 2 puff INHALATION QID PRN 09/01/18 09/07/19 History atorvastatin 20 mg PO HS 09/01/18 09/07/19 History cholecalciferol (vitamin D3) 2,000 unit PO QAM 09/01/18 09/07/19 History [Vitamin D3] docusate sodium [Stool Softener] 100 mg PO BID PRN 09/01/18 09/07/19 History fluticasone propionate [Flonase 1 spray INTRANASAL BID PRN 09/01/18 09/07/19 History Allergy Relief] loratadine 10 mg PO QAM PRN 09/01/18 09/07/19 History magnesium oxide 400 mg (241.3 mg 400 mg PO DAILY #30 tab 04/07/19 09/07/19 Rx magnesium) tablet montelukast 10 mg tablet 10 mg PO DAILY #30 tab 04/19/19 09/07/19 Rx metoprolol succinate ER 100 mg 100 mg PO TID #270 tab 06/16/19 09/07/19 Rx tablet,extended release 24 hr flecainide 100 mg tablet 100 mg PO TID tab 06/22/19 09/07/19 History spironolactone 50 mg tablet 50 mg PO BID tab 06/22/19 09/07/19 History umeclidinium 62.5 mcg/actuation 1 puffs INH DAILY 06/22/19 09/07/19 History blister powder for inhalation dasatinib 100 mg tablet 100 mg PO DAILY 07/07/19 09/07/19 History probenecid 500 mg tablet 250 mg PO BID #90 tab 08/09/19 09/07/19 Rx duloxetine 20 mg capsule,delayed 40 mg PO DAILY #60 cap 08/10/19 09/07/19 Rx release Symbicort 2 puff INHALATION BID 08/18/19 09/07/19 History calcitriol 0.25 mcg PO 3XWK 08/18/19 09/07/19 History famotidine 20 mg PO QAM PRN #30 tab 08/21/19 09/07/19 Rx ferrous fumarate-vitamin C 1 tab PO DAILY #30 tab 08/21/19 09/07/19 Rx [Saturnino-Sequels (iron-vit c)] tramadol 50 mg tablet 100 mg PO TID PRN #180 tab 08/30/19 09/07/19 Rx diphenhydramine HCl [Benadryl] 25 mg PO HS PRN 09/07/19 09/07/19 History Patient History Medical History Non-small cell lung cancer (Acute) Osteoarthritis (Acute) Obstructive sleep apnea (Acute) Solitary thyroid nodule (Acute) Type 2 diabetes mellitus with stage 3 chronic kidney disease, without long-term current use of insulin (Acute) Urine, incontinence, stress female (Acute) Vitamin D deficiency (Acute) Hypertension (Chronic) Chemotherapy induced nausea and vomiting Emphysema lung (Chronic) Hyponatremia (Chronic) Paroxysmal atrial fibrillation (Chronic) Anxiety Asthma Atrial fibrillation on xarelto---follows with Dr. Wright Chronic back pain Chronic kidney disease, stage 3 (moderate) Chronic obstructive pulmonary disease inhalers Depression Enlarged thyroid gland just watching GERD (gastroesophageal reflux disease) Hx of gastric ulcer Hyperlipidemia Lung cancer, lower lobe 2017--left--sx, chemo On anticoagulant therapy On home oxygen therapy 2L n/c continuous Sleep apnea CPAP with 2L Surgical History History of appendectomy History of bronchoscopy 2016 History of cardiac cath 11/2017 @ [facility]--no stents History of cholecystectomy History of colonoscopy History of dilatation and curettage History of lobectomy of lung lower left lobe 2017 @ [facility] History of open reduction and internal fixation (ORIF) procedure R upper thigh x2--pins/rods in place History of tooth extraction all teeth History of total left knee replacement (TKR) History of total right knee replacement (TKR) Family History Sister Family history of reaction to anesthesia "had an allergic reaction", not sure what happened Mother Family history of diabetes mellitus Grandmother Family history of diabetes mellitus maternal Family/Other Family history of diabetes mellitus maternal uncle/maternal aunts Family/Other Family hx of colon cancer paternal cousin Social History Preferred Language: Nigerian Communication Ability: Effective Home Health Caregiver Required: No Beliefs That Will Affect Care: None Current Living Situation: Alone Other Information That Helps Us Care for You: No Feels Safe at Home: Yes Safety Concerns: Feels Safe At This Time Smoking Status: Former smoker Smoking End Date: 2016 ; Second Hand Exposure: No ; Tobacco Cessation Education Requested by Patient: No Hx Alcohol Use: No Hx Substance Use: No Review of Systems Review of Systems: All systems reviewed & are unremarkable except as noted in HPI & below Physical Exam Physical Exam: General: No acute distress, comfortable. O2 via nasal cannula HEENT: Head is normal. PERRLA. EOMI. Sclerae anicteric. Ears, nose and throat unremarkable. Mucous membranes moist. Neck: Normal carotid upstrokes, no bruits. No appreciable JVD. Lungs: Clear to auscultation bilaterally without rales, rhonchi or wheezes. Cardiac: Regular rate and rhythm. S1-S2 normal. No appreciable murmur, gallop or rub. Abdomen: Soft and nontender. Bowel sounds normal. No mass or organomegaly. No abdominal bruit. Extremities/vascular: -- Well perfused. Trace pretibial edema bilaterally --Peripheral pulses intact Skin: No rash or abnormal lesions. Normal turgor. Neurologic: Nonfocal. Generalized weakness Psychiatric: Affect appropriate. Alert and oriented. Results & Data Vital Signs (Past 12 Hours) Vital Signs Temp Pulse Pulse Resp BP Pulse Ox 09/08/19 07:14 36.7 C 59 L 16 111/54 L 96 09/08/19 04:19 36.7 C 60 18 95/58 L 95 09/08/19 01:04 36.6 C 59 L 18 96/54 L 94 09/08/19 00:30 58 L Laboratory Results Laboratory Results - last 24 hr 09/07/19 09/07/19 09/07/19 10:25 10:32 10:32 WBC RBC Hgb Hct MCV MCH MCHC RDW Std Deviation RDW Coeff of Bruce Plt Count MPV Immature Gran % (Auto) Neut % (Auto) Lymph % (Auto) [place] % (Auto) Eos % (Auto) Baso % (Auto) Immature Gran # (Auto) Neut # (Auto) Lymph # (Auto) [place] # (Auto) Eos # (Auto) Baso # (Auto) Anisocytosis ESR > 90 H Sodium Potassium Chloride Carbon Dioxide Anion Gap BUN Creatinine Est Cr Clr Drug Dosing Est GFR ( Amer) Est GFR (Non-Af Amer) BUN/Creatinine Ratio Glucose Calcium C-Reactive Protein 3.38 H Random Cortisol 20.31 Urine Color Urine Appearance Urine pH Ur Specific Wilsey Urine Protein Urine Glucose (UA) Urine Ketones Urine Blood Urine Nitrite Urine Bilirubin Urine Urobilinogen Ur Leukocyte Esterase Urine WBC (Auto) Urine RBC (Auto) U Hyaline Cast (Auto) U Epithel Cells (Auto) Urine Bacteria (Auto) Flecainide 09/07/19 09/08/19 09/08/19 11:15 06:32 06:32 WBC 6.08 RBC 3.58 L Hgb 8.9 L Hct 29.9 L MCV 83.5 MCH 24.9 L MCHC 29.8 L RDW Std Deviation 66.7 H RDW Coeff of Bruce 22.5 H Plt Count 307 MPV 8.5 Immature Gran % (Auto) 0.3 Neut % (Auto) 65.9 Lymph % (Auto) 23.0 [place] % (Auto) 8.2 Eos % (Auto) 1.8 Baso % (Auto) 0.8 Immature Gran # (Auto) 0.02 Neut # (Auto) 4.00 Lymph # (Auto) 1.40 [place] # (Auto) 0.50 Eos # (Auto) 0.11 Baso # (Auto) 0.05 Anisocytosis Present ESR Sodium 137 Potassium 4.2 Chloride 103 Carbon Dioxide 29 Anion Gap 5.0 BUN 15 Creatinine 1.20 Est Cr Clr Drug Dosing 56.8 Est GFR ( Amer) 54.5 Est GFR (Non-Af Amer) 47.1 BUN/Creatinine Ratio 12.4 Glucose 83 Calcium 9.4 C-Reactive Protein Random Cortisol Urine Color Yellow Urine Appearance Clear Urine pH 7.0 Ur Specific Wilsey 1.011 Urine Protein 1+ H Urine Glucose (UA) Negative Urine Ketones Negative Urine Blood Negative Urine Nitrite Negative Urine Bilirubin Negative Urine Urobilinogen Negative Ur Leukocyte Esterase Negative Urine WBC (Auto) 1-5 Urine RBC (Auto) 0-4 U Hyaline Cast (Auto) 1-5 U Epithel Cells (Auto) 10-20 H Urine Bacteria (Auto) Negative Flecainide 09/08/19 08:12 WBC RBC Hgb Hct MCV MCH MCHC RDW Std Deviation RDW Coeff of Bruce Plt Count MPV Immature Gran % (Auto) Neut % (Auto) Lymph % (Auto) [place] % (Auto) Eos % (Auto) Baso % (Auto) Immature Gran # (Auto) Neut # (Auto) Lymph # (Auto) [place] # (Auto) Eos # (Auto) Baso # (Auto) Anisocytosis ESR Sodium Potassium Chloride Carbon Dioxide Anion Gap BUN Creatinine Est Cr Clr Drug Dosing Est GFR ( Amer) Est GFR (Non-Af Amer) BUN/Creatinine Ratio Glucose Calcium C-Reactive Protein Random Cortisol Urine Color Urine Appearance Urine pH Ur Specific Wilsey Urine Protein Urine Glucose (UA) Urine Ketones Urine Blood Urine Nitrite Urine Bilirubin Urine Urobilinogen Ur Leukocyte Esterase Urine WBC (Auto) Urine RBC (Auto) U Hyaline Cast (Auto) U Epithel Cells (Auto) Urine Bacteria (Auto) Flecainide Pending ECG Additional Comments: EKG 09/07/19: Atrial fibrillation at 54 bpm Tele reviewed-- atrial fib versus sinus rhythm with frequent PACs. HR in 50-70s. PG Care Time/CCT Total # of Minutes Spent Total Time Spent with Patient: Total time spent is greater than 50% in coordination of care (as documented) at patient's floor/unit and/or counseling patient: (1) Atrial fibrillation Atrial fibrillation type: unspecified Qualified Code(s): I48.91 - Unspecified atrial fibrillation
[2019-09-08] MEDS: RIVAROXABAN 20 MG TAB PO SCH (16:45)
[2019-09-08] MEDS ORDERED: FLECAINIDE ACETATE 100 MG TABLET PO SCH (21:00)
[2019-09-09] MEDS ORDERED: CALCITRIOL 0.25 MCG CAPSULE PO SCH (09:00)
== END 2019-09-08 18:06 | disposition home health service (06) ==
LOC: ED 09:41 → 2W 09:41 → SUATTDRO 13:16 → 2W 13:30

== ENCOUNTER 2021-05-28 19:07 | Inpatient (IN) ==
[2021-05-28] MEDS ORDERED: PANTOPRAZOLE BOLUS/DRIP 1 EA IV STA (20:16)
[2021-05-28] MEDS ORDERED: PANTOprazole 80 MG in DEXTROSE 5% 100 ML IV ONE (20:16)
[2021-05-28] MEDS ORDERED: SODIUM CHLORIDE 0.9% 250 ML IV PRN (20:16)
--- NOTE | 2021-05-28 20:23 | Emergency Department Note ---
History of Present Illness General Chief complaint: Abnormal Labs/Diagnostic Testing Stated complaint: BLOOD IN STOOL, WHITE BLOOD CELLS ELEVATED Time Seen by Provider: 05/28/21 20:04 Source: patient History of Present Illness Provider complaint: Rectal bleeding Onset (ago): day(s) Location: abdomen Severity: mild Pain Consistency: + intermittent Maximum Pain Intensity: 8 Quality: + other (Bright red blood) Exacerbated By: + none Associated symptoms: + shortness of breath (Only on exertion) and + weakness (Generalized); no chest pain, no fever/chills or no nausea/vomiting This is a 66-year-old female sent over from a [facility] in [place] for a hemoglobin of 7.2. The blood work was done yesterday. She started having scant amount of bright red blood in her colostomy bag yesterday. She said it was a small amount with some small clots. She states that she has also been having some hematuria. She is on Xarelto for paroxysmal atrial fibrillation. She has never had a clot in her lungs or legs or any artificial valves. She does state that she took her last dose at 10 AM today. She states that she has been very fatigued over the past 2 weeks. She gets dyspnea on exertion but denies any chest discomfort or pain. She has had no fever or cough or cold symptoms. She states that she had a bowel perforation in April and was sent to [facility] for emergency surgery and colostomy. She does state that she has had transfusions in the past. Home Medications Medication Instructions Recorded Confirmed Type atorvastatin 20 mg tablet 20 mg PO HS 08/31/20 05/28/21 History levothyroxine 25 mcg tablet 25 mcg PO QAM 08/31/20 05/28/21 History (Synthroid) duloxetine 20 mg capsule,delayed 40 mg PO QAM #60 cap 09/10/20 05/28/21 Rx release budesonide-formoterol HFA 160 2 puff INHALATION BID #10.2 gm 11/15/20 05/28/21 Rx mcg-4.5 mcg/actuation aerosol inhaler (Symbicort) montelukast 10 mg tablet 10 mg PO HS #30 tab 04/03/21 05/28/21 Rx rivaroxaban 20 mg tablet (Xarelto) 20 mg PO HS #90 tab 04/03/21 05/28/21 Rx acetaminophen 325 mg tablet 650 mg PO Q4 PRN 05/28/21 05/28/21 History amiodarone 200 mg tablet 200 mg PO DAILY 05/28/21 05/28/21 History cholecalciferol (vitamin D3) 25 25 mcg PO BID 05/28/21 05/28/21 History mcg (1,000 unit) tablet ferrous fumarate-ascorbic 1 tab PO DAILY 05/28/21 05/28/21 History acid-ascorbate sod 65 mg iron-125 mg tablet furosemide 40 mg tablet (Lasix) 40 mg PO DAILY 05/28/21 05/28/21 History metoprolol succinate 50 mg 50 mg PO DAILY 05/28/21 05/28/21 History tablet,extended release 24 hr midodrine 10 mg tablet 10 mg PO TID 05/28/21 05/28/21 History sodium chloride 0.65 % nasal spray 1 spray INTRANASAL TID 05/28/21 05/28/21 History aerosol (Saline Nasal) tramadol 50 mg tablet 100 mg PO Q8 PRN 05/28/21 05/28/21 History Allergies Allergy/AdvReac Type Severity Reaction Status Date / Time diltiazem Allergy Severe SHORTNESS Verified 05/28/21 20:43 OF BREATH AND SWELLING OF HANDS AND FACE nut - unspecified Allergy Severe Wheezing Verified 10/15/20 12:52 peanut Allergy Severe Wheezing Verified 10/15/20 12:52 Yeast Allergy Severe Wheezing Verified 10/15/20 12:52 Penicillins Allergy Intermediate WELTS IN Verified 05/28/21 20:43 MOUTH AND SPREAD TO BODY adhesive Allergy Mild BLISTERS Verified 10/15/20 12:52 latex Allergy Mild RASH Verified 05/28/21 20:43 indomethacin Allergy Unknown per pulm Verified 10/15/20 12:52 note tree and shrub pollen Allergy Unknown ELM Verified 10/15/20 12:52 TREE-RASH BLISYERS HANDS ARMS FEET allopurinol Allergy Unknown Unverified 05/28/21 20:43 febuxostat [From Uloric] Allergy Unknown Verified 05/28/21 20:45 oxycodone Allergy Unknown Verified 05/28/21 20:45 codeine AdvReac Mild N&V&GI PAIN Verified 05/28/21 20:43 paroxetine AdvReac Mild GI SYMPTOMS Verified 05/28/21 20:43 varenicline AdvReac Mild GI Verified 10/15/20 12:52 SYMPTOMS,HALLUCINATIONS linaclotide [From Linzess] AdvReac Unknown CAUSED Verified 10/15/20 12:52 ASTHMA ATTACK Past Med/Surg History Medical History Anxiety Asthma Atrial fibrillation on xarelto---follows with Dr. 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 CML (chronic myelocytic leukemia) F/U DR PATELATILIO [facility] Depression Diabetes mellitus, type 2 DIET MANAGED GERD (gastroesophageal reflux disease) Hyperlipidemia Hypertension Hypothyroidism Iron deficiency anemia Kidney stones HX Lung cancer, lower lobe 2017--left--sx, chemo On anticoagulant therapy On home oxygen therapy 2L n/c continuous Sleep apnea NO LONGER USING CPAP-USES ONLY OXYGEN CONTINUOUSLY SOBOE (shortness of breath on exertion) Stress incontinence in female Temporomandibular joint disorder PAIN BILAT-HAS NEVER LOCKED Surgical History History of appendectomy History of bronchoscopy 2017 History of cardiac cath 11/2017 @ [facility]--no stents History of cholecystectomy History of colonoscopy History of dilatation and curettage History of esophagogastroduodenoscopy (EGD) History of lobectomy of lung lower left lobe 2017 @ [facility] History of open reduction and internal fixation (ORIF) procedure R upper thigh x2--pins/rods in place History of tooth extraction all teeth History of total left knee replacement (TKR) History of total right knee replacement (TKR) Family History Sister Family history of reaction to anesthesia "had an allergic reaction", not sure what happened Arthritis Family history of diabetes mellitus Heart disease Hypertension Mother Family history of diabetes mellitus Myocardial infarction Heart disease Hypertension age 63 due to SC Grandmother Family history of diabetes mellitus maternal Family/Other Family history of diabetes mellitus maternal uncle/maternal aunts Colorectal cancer Family/Other Family hx of colon cancer paternal cousin Father age 91 Denies family history of Crohn's disease Ulcerative colitis Social History Smoking Status: Never smoker Tobacco Type: Cigarettes Age Started Using Tobacco: 8; Age Quit Using Tobacco: 62; Cigarettes Per Day: 2pks; Second Hand Exposure: No; Hx Alcohol Use: Yes Alcohol Intake Frequency Comment: socially, mainly on holidays Hx Substance Use: No Preferred Language: Montenegrin Communication Ability: Effective Visual Impairment: No Limitations Hearing Ability: Normal Human Resources Supervisor Required: No Beliefs That Will Affect Care: None marital status: / Current Living Situation: Alone current occupational status: retired Feels Safe at Home: Yes Childhood Exposure to Second-Hand Smoke: No during the past year weight has: remained stable Dental Care, Regularly: No Physical Activity Frequency: Does not Exercise Seatbelt Use: always Sunscreen Use: No Assistive Devices: Cane, Denture - Upper, Denture - Lower, Glasses, Oxygen - Continuous, Walker and Wheelchair Review of Systems See HPI for pertinent positives & negatives. and A total of 10 systems reviewed and were otherwise negative Physical Exam Vital Signs Vital Signs - 24 hr 05/28/21 19:36 05/28/21 20:03 05/28/21 21:48 Temperature 37.1 C Temperature Source Oral Pulse Rate 90 84 Pulse Rate [Apical] 98 H Pulse Rhythm Regular Pulse Rhythm [Apical] Regular Pulse Strength Normal Pulse Strength [Apical] Normal Respiratory Rate 20 25 H 17 Respiratory Effort / Characteristics Non-Labored Spontaneous Non-Labored Respiratory Depth Normal Normal Respiratory Pattern Regular Blood Pressure 92/51 L 87/37 L Blood Pressure [Right Arm] 181/95 H Blood Pressure Mean 64 53 Blood Pressure Mean [Right Arm] 123 Blood Pressure Position Sitting Blood Pressure Position [Right Arm] Sitting Pulse Oximetry 100 95 99 Oxygen Delivery Method Nasal Cannula Nasal Cannula Oxygen Flow Rate 2 Sepsis Recent Fever Within 48 Hours No Sepsis New/Unexplained Change in Mental Status No Sepsis Action Taken by Nursing No Action Required 05/28/21 22:09 Temperature 36.9 C Temperature Source Oral Pulse Rate 82 Pulse Rate [Apical] Pulse Rhythm Regular Pulse Rhythm [Apical] Pulse Strength Normal Pulse Strength [Apical] Respiratory Rate 18 Respiratory Effort / Characteristics Respiratory Depth Respiratory Pattern Blood Pressure 89/40 L Blood Pressure [Right Arm] Blood Pressure Mean 56 Blood Pressure Mean [Right Arm] Blood Pressure Position Lying Blood Pressure Position [Right Arm] Pulse Oximetry 100 Oxygen Delivery Method Oxygen Flow Rate 2 Sepsis Recent Fever Within 48 Hours Sepsis New/Unexplained Change in Mental Status Sepsis Action Taken by Nursing Constitutional: Vital signs reviewed. Mildly hypotensive. Eyes: Pupils are equal round reactive to light. Conjunctiva are noninjected. ENT: Pharynx is clear without erythema or exudate. Mucous membranes are moist. Neck supple without meningeal signs. Respiratory: Clear to auscultation bilaterally. Breath sounds are equal bilaterally. Cardiovascular: Regular rate and rhythm. No rubs or gallops. GI: Soft, nondistended and nontender. Colostomy left side with no active bleeding. Dark red blood in the colostomy bag. No bright red blood or large clots. Bowel sounds are present. Musculoskeletal: No peripheral edema. No lower extremity tenderness. Integumentary: No cyanosis. or jaundice. Neurological: The patient is awake and alert. No focal deficits. Psychiatric: Normal affect. Not anxious appearing. Course Administered Medications Pantoprazole Sodium 40 mg/ (Dextrose) 100 mls @ 20 mls/hr IV Q5H JOSÉ LUIS Stop: 06/27/21 20:44 Last Admin: 05/28/21 21:31 Dose: 8 mg/hr, 20 mls/hr Documented by: [id number] Discontinued Medications Pantoprazole Sodium (Protonix Bolus/Drip) 0 mls @ 1 mls/hr IV ONE STA Stop: 05/28/21 20:17 Last Admin: 05/28/21 21:11 Dose: 1 mls/hr Documented by: [id number] Pantoprazole Sodium 80 mg/ (Dextrose) 120 mls @ 400 mls/hr IV NOW ONE Stop: 05/28/21 20:33 Last Infusion: 05/28/21 21:35 Dose: 0 mls/hr Documented by: [id number] Admin: 05/28/21 21:18 Dose: 400 mls/hr Documented by: [id number] Critical Care Time Critical Care Time: Yes Total Critical Care Time: 45 I have personally spent approximately 45 minutes of critical care time in the direct management of this patient. This includes bedside care, interpretation of diagnostic studies, and testing, discussion with consultants, patient, and family members, and other required patient management activities. These minutes are in excess of all separately billable procedures. Medical Decision Making Differential Diagnosis Acute GI bleed, hypercoagulable state, anemia, peptic ulcer disease, hematuria Medical Records Attestation: I reviewed the patient's medical records. I did perform a limited focused review of portions of the patient's old chart on the electronic medical record. The patient was seen here on April 18 for a bowel perforation. She was transferred to [facility] for emergency surgery. She was given Kcentra at the time because she was taking Xarelto. Home Medications Current Medication List: was personally reviewed by me Laboratory Data Attestation: I reviewed the patient's lab results. Result diagrams: 05/28/21 19:55 05/28/21 19:55 Lab Results 05/28/21 05/28/21 05/28/21 Range/Units 19:55 19:55 19:57 WBC 45.80 H* (4.8-10.8) K/uL RBC 2.87 L (4.2-5.4) M/uL Hgb 7.5 L (12.0-16.0) g/dL Hct 24.7 L (37-47) % MCV 86.1 (80-100) fL MCH 26.1 (25-34) pg MCHC 30.4 L (32-36) g/dL RDW Std Deviation 63.6 H (36.4-46.3) fL RDW Coeff of Bruce 20.4 H (11.5-14.5) % Plt Count 585 H (130-400) K/uL MPV 10.5 H (7.4-10.4) fL Absolute Nucleated RBC 0.46 H (0-0) K/uL Nucleated RBC % (auto) 1.0 % Neutrophils % (Manual) 77.2 % Lymphocytes % (Manual) 5.3 % Monocytes % (Manual) 5.3 % Eosinophils % (Manual) 2.6 % Basophils % (Manual) 3.5 % Metamyelocytes % (Man) 2.6 % Myelocytes % (Man) 3.5 % Neutrophils # (Manual) 35.36 H (1.4-6.5) K/uL Total Absolute Neuts 35.36 H (1.4-6.5) K/uL Lymphocytes # (Manual) 2.43 (1.2-3.4) K/uL Total Abs Lymphocytes 2.43 (1.2-3.4) K/uL Monocytes # (Manual) 2.43 H (0.11-0.59) K/uL Eosinophils # (Manual) 1.19 H (0-0.5) K/uL Basophils # (Manual) 1.60 H (0-0.2) K/uL Metamyelocytes # (Man) 1.19 H (0-0) K/uL Myelocytes # (Manual) 1.60 H (0-0) K/uL Polychromasia 1+ Hypochromasia Present Anisocytosis Present PT (9.0-12.0) Seconds INR (0.9-1.1) APTT (21.0-31.0) Seconds PTT Ratio Sodium 135 L (136-145) mmol/L Potassium 4.5 (3.5-5.1) mmol/L Chloride 96 L (98-107) mmol/L Carbon Dioxide 32 (21-32) mmol/L Anion Gap 6.0 (3-11) BUN 27 H (7-18) mg/dl Creatinine 1.41 H (0.6-1.2) mg/dl Est Cr Clr Drug Dosing Not Reportable Est GFR ( Amer) 44.3 ml/min Est GFR (Non-Af Amer) 38.2 ml/min BUN/Creatinine Ratio 18.9 (10-20) Glucose 101 H (70-99) mg/dl Calcium 8.5 (8.5-10.1) mg/dl Total Bilirubin 0.5 (0.2-1) mg/dl AST 23 (15-37) U/L ALT 17 (12-78) U/L Alkaline Phosphatase 118 H (45-117) U/L Troponin I < 0.015 (0-0.045) ng/ml Total Protein 6.4 (6.4-8.2) gm/dl Albumin 1.7 L (3.4-5.0) gm/dl Globulin 4.7 H (2.5-4.0) gm/dl Albumin/Globulin Ratio 0.4 L (0.9-2) POC Stool Occult Blood (Negative) COVID-19 Eval Order SARS-CoV-2 (PCR) (Negative) Blood Type A Negative Antibody Screen NEGATIVE Crossmatch See Detail 05/28/21 05/28/21 05/28/21 Range/Units 20:14 20:35 20:35 WBC (4.8-10.8) K/uL RBC (4.2-5.4) M/uL Hgb (12.0-16.0) g/dL Hct (37-47) % MCV (80-100) fL MCH (25-34) pg MCHC (32-36) g/dL RDW Std Deviation (36.4-46.3) fL RDW Coeff of Bruce (11.5-14.5) % Plt Count (130-400) K/uL MPV (7.4-10.4) fL Absolute Nucleated RBC (0-0) K/uL Nucleated RBC % (auto) % Neutrophils % (Manual) % Lymphocytes % (Manual) % Monocytes % (Manual) % Eosinophils % (Manual) % Basophils % (Manual) % Metamyelocytes % (Man) % Myelocytes % (Man) % Neutrophils # (Manual) (1.4-6.5) K/uL Total Absolute Neuts (1.4-6.5) K/uL Lymphocytes # (Manual) (1.2-3.4) K/uL Total Abs Lymphocytes (1.2-3.4) K/uL Monocytes # (Manual) (0.11-0.59) K/uL Eosinophils # (Manual) (0-0.5) K/uL Basophils # (Manual) (0-0.2) K/uL Metamyelocytes # (Man) (0-0) K/uL Myelocytes # (Manual) (0-0) K/uL Polychromasia Hypochromasia Anisocytosis PT 17.1 H (9.0-12.0) Seconds INR 1.8 H (0.9-1.1) APTT 46.1 H* (21.0-31.0) Seconds PTT Ratio 1.8 Sodium (136-145) mmol/L Potassium (3.5-5.1) mmol/L Chloride (98-107) mmol/L Carbon Dioxide (21-32) mmol/L Anion Gap (3-11) BUN (7-18) mg/dl Creatinine (0.6-1.2) mg/dl Est Cr Clr Drug Dosing Est GFR ( Amer) ml/min Est GFR (Non-Af Amer) ml/min BUN/Creatinine Ratio (10-20) Glucose (70-99) mg/dl Calcium (8.5-10.1) mg/dl Total Bilirubin (0.2-1) mg/dl AST (15-37) U/L ALT (12-78) U/L Alkaline Phosphatase (45-117) U/L Troponin I (0-0.045) ng/ml Total Protein (6.4-8.2) gm/dl Albumin (3.4-5.0) gm/dl Globulin (2.5-4.0) gm/dl Albumin/Globulin Ratio (0.9-2) POC Stool Occult Blood (Negative) COVID-19 Eval Order Covid19 at [facility] SARS-CoV-2 (PCR) NEGATIVE (Negative) Blood Type Antibody Screen Crossmatch 05/28/21 Range/Units Unknown WBC (4.8-10.8) K/uL RBC (4.2-5.4) M/uL Hgb (12.0-16.0) g/dL Hct (37-47) % MCV (80-100) fL MCH (25-34) pg MCHC (32-36) g/dL RDW Std Deviation (36.4-46.3) fL RDW Coeff of Bruce (11.5-14.5) % Plt Count (130-400) K/uL MPV (7.4-10.4) fL Absolute Nucleated RBC (0-0) K/uL Nucleated RBC % (auto) % Neutrophils % (Manual) % Lymphocytes % (Manual) % Monocytes % (Manual) % Eosinophils % (Manual) % Basophils % (Manual) % Metamyelocytes % (Man) % Myelocytes % (Man) % Neutrophils # (Manual) (1.4-6.5) K/uL Total Absolute Neuts (1.4-6.5) K/uL Lymphocytes # (Manual) (1.2-3.4) K/uL Total Abs Lymphocytes (1.2-3.4) K/uL Monocytes # (Manual) (0.11-0.59) K/uL Eosinophils # (Manual) (0-0.5) K/uL Basophils # (Manual) (0-0.2) K/uL Metamyelocytes # (Man) (0-0) K/uL Myelocytes # (Manual) (0-0) K/uL Polychromasia Hypochromasia Anisocytosis PT (9.0-12.0) Seconds INR (0.9-1.1) APTT (21.0-31.0) Seconds PTT Ratio Sodium (136-145) mmol/L Potassium (3.5-5.1) mmol/L Chloride (98-107) mmol/L Carbon Dioxide (21-32) mmol/L Anion Gap (3-11) BUN (7-18) mg/dl Creatinine (0.6-1.2) mg/dl Est Cr Clr Drug Dosing Est GFR ( Amer) ml/min Est GFR (Non-Af Amer) ml/min BUN/Creatinine Ratio (10-20) Glucose (70-99) mg/dl Calcium (8.5-10.1) mg/dl Total Bilirubin (0.2-1) mg/dl AST (15-37) U/L ALT (12-78) U/L Alkaline Phosphatase (45-117) U/L Troponin I (0-0.045) ng/ml Total Protein (6.4-8.2) gm/dl Albumin (3.4-5.0) gm/dl Globulin (2.5-4.0) gm/dl Albumin/Globulin Ratio (0.9-2) POC Stool Occult Blood Positive A (Negative) COVID-19 Eval Order SARS-CoV-2 (PCR) (Negative) Blood Type Antibody Screen Crossmatch Imaging Data Attestation: I personally reviewed and interpreted this imaging study as follows: My Impression: Chest x-ray per my interpretation shows no acute cardiopulmonary process. She has an elevated left hemidiaphragm. ECG Data Attestation: I personally reviewed and interpreted this ECG as follows: Indication: + weakness Rate (beats per minute): 91 Rhythm: + atrial flutter ECG Intervals/blocks: + Normal QT ECG Findings: no PVCs or no LVH MDM Narrative I did evaluate the patient as noted above. The patient is presenting with bleeding from her colostomy since yesterday. She is on Xarelto for atrial fibrillation. She also had blood work yesterday which showed a hemoglobin of 7.2. On arrival here she is mildly hypotensive. I did get informed consent for transfusion of blood. I did order 2 units of packed RBCs. The patient does have a history of CML but has not had chemotherapy since January. IV access was established. I did start her on a Protonix drip with bolus. I did place an order for continuous cardiac monitoring. The monitor showed atrial fibrillation with a rate of 88 bpm. I did order and personally review the patient's 12-lead EKG as described above. She has atrial fibrillation without acute ischemia. I did order and personally reviewed the images of the patient's chest x-ray as described above. There is no evidence of acute cardiopulmonary process. I did order a urine analysis. I did order and review the patient's blood work as noted in the electronic medical record. Her white blood cell count is 45,000 but she does have CML. Her hemoglobin is 7.5 here. Platelet count is 585. Electrolytes demonstrate a sodium of 135 and a chloride of 96. Her creatinine is 1.41 with a BUN of 27. Troponin is negative. The patient remained hypotensive in the emergency department. She states that she feels much better though. She is not complaining of any chest pain or shortness of breath or lightheadedness. Her transfusion was started in the emergency department. She is tolerating it well. She shows no signs of transfusion reaction. I did not give her a fluid bolus as she does have a history of CHF. Covid testing is negative. The case was discussed with the disease case manager rn and the hospitalist was informed. Impression & Plan Acute GI bleeding, CML (chronic myelocytic leukemia), Anticoagulated, Acute hypotension Discharge Plan Visit Data Chief Complaint: Abnormal Labs/Diagnostic Testing Stated Complaint: BLOOD IN STOOL, WHITE BLOOD CELLS ELEVATED ED Provider: Pj Keith Discharge Problem: Acute GI bleeding, CML (chronic myelocytic leukemia), Anticoagulated, Acute hypotension Patient Disposition: Being Evaluated by Hospitalist Forms Stand Alone Forms: [facility] Prescriptions Prescriptions: No Action duloxetine 20 mg capsule,delayed release(DR/EC) 40 mg PO QAM Qty: 60 RF: 11 budesonide-formoterol [Symbicort] 160-4.5 mcg/actuation HFA aerosol inhaler 2 puff INHALATION BID Qty: 10.2 RF: 5 montelukast 10 mg tablet 10 mg PO HS Qty: 30 RF: 5 Xarelto 20 mg tablet 20 mg PO HS Qty: 90 RF: 3 atorvastatin 20 mg tablet 20 mg PO HS RF: 0 levothyroxine [Synthroid] 25 mcg tablet 25 mcg PO QAM RF: 0 furosemide [Lasix] 40 mg tablet 40 mg PO DAILY RF: 0 tramadol 50 mg tablet 100 mg PO Q8 PRN (Reason: lower abdominal pain) RF: 0 amiodarone 200 mg tablet 200 mg PO DAILY RF: 0 metoprolol succinate 50 mg tablet extended release 24 hr 50 mg PO DAILY RF: 0 midodrine 10 mg tablet 10 mg PO TID RF: 0 cholecalciferol (vitamin D3) 25 mcg (1,000 unit) Tablet 25 mcg PO BID RF: 0 acetaminophen 325 mg Tablet 650 mg PO Q4 PRN (Reason: Pain, Mild) RF: 0 sodium chloride [Saline Nasal] 0.65 % Aerosol,Converse 1 spray INTRANASAL TID RF: 0 iron fum-vit C-ascorbate sod 65 mg iron- 125 mg Tablet 1 tab PO DAILY RF: 0 Referrals Referrals: Octavio Galo MD [Primary Care Provider] -
[2021-05-28 21:04] LABS: Alanine Aminotransferase 17 U/L (12-78); Albumin Level 1.7 gm/dl (3.4-5.0); Aspartate Aminotransferase 23 U/L (15-37); BUN Creatinine Ratio 18.9 (10-20); Blood Urea Nitrogen 27 mg/dl (7-18); Calcium 8.5 mg/dl (8.5-10.1); Carbon Dioxide 32 mmol/L (21-32); Chloride 96 mmol/L (98-107); Est GFR (African American) 44.3 ml/min; Est GFR (Non-African American) 38.2 ml/min; Glucose 101 mg/dl (70-99); Potassium 4.5 mmol/L (3.5-5.1); Sodium 135 mmol/L (136-145)
[2021-05-28 21:08] LABS: Albumin Globulin Ratio 0.4 (0.9-2); Alkaline Phosphatase 118 U/L (45-117); Bilirubin,Total 0.5 mg/dl (0.2-1); Globulin 4.7 gm/dl (2.5-4.0); Total Protein 6.4 gm/dl (6.4-8.2); Troponin I < 0.015 ng/ml (0-0.045)
[2021-05-28 21:09] LABS: Hematocrit (blood only) 24.7 % (37-47); Hemoglobin 7.5 g/dL (12.0-16.0); Mean Corpuscular Hemoglobin 26.1 pg (25-34); Mean Corpuscular Hgb Conc 30.4 g/dL (32-36); Mean Corpuscular Volume 86.1 fL (80-100); Mean Platelet Volume 10.5 fL (7.4-10.4); Nucleated RBC # (auto) 0.46 K/uL (0-0); Platelet Count 585 K/uL (130-400); RDW Coefficient of Variation 20.4 % (11.5-14.5); RDW Standard Deviation 63.6 fL (36.4-46.3); Red Blood Count 2.87 M/uL (4.2-5.4)
[2021-05-28] MEDS: PANTOprazole 40 MG in DEXTROSE 5% 100 ML IV SCH (21:31)
[2021-05-28 21:56] LABS: INR 1.8 (0.9-1.1); Partial Thromboplastin Ratio 1.8; Prothrombin Time 17.1 Seconds (9.0-12.0)
[2021-05-28 22:01] LABS: ALC (manual) 2.43 K/uL (1.2-3.4); ANC (manual) 35.36 K/uL (1.4-6.5); Anisocytosis Present; Basophils % (manual) 3.5 %; Eosinophils # (manual) 1.19 K/uL (0-0.5); Eosinophils % (manual) 2.6 %; Hypochromasia Present; Lymphocytes # (manual) 2.43 K/uL (1.2-3.4); Lymphocytes % (manual) 5.3 %; Metamyelocytes # (manual) 1.19 K/uL (0-0); Metamyelocytes % (manual) 2.6 %; Monocytes # (manual) 2.43 K/uL (0.11-0.59); Monocytes % (manual) 5.3 %; Myelocytes % (manual) 3.5 %; Neutrophils # (manual) 35.36 K/uL (1.4-6.5); Neutrophils % (manual) 77.2 %; Polychromasia 1+
[2021-05-28 22:10] LABS: Partial Thromboplastin Time 46.1 Seconds (21.0-31.0)
--- NOTE | 2021-05-28 22:53 | History & Physical Report ---
Date of Service May 28, 2021 Assessment & Plan (1) Acute GI bleeding: Plan: Marycarmen Schilling is a 66-year-old female with complex medical history significant for chronic #hyperlipidemia, COPD, GERD, type 2 diabetes, chronic kidney disease stage III; who presents from her residential with concerns of low hemoglobin on blood work collected previously. Acute GI bleed: -Uncertain etiology of GI bleeding in the setting of recent gastrointestinal surgery (colostomy) -Given bright red blood per rectum likely lower GI source -Hemoglobin 7.5 on admission -Received 2 units packed red blood cells overnight -Recheck hemoglobin in a.m. -Hold Xarelto at this time -If continuing to have GI bleed concerns consideration of Xarelto reversal CML: -Uncertain what chemotherapy patient was previously on -We will attempt to get records from [facility] -WBC of 45.8 admission with neutrophilic predominance Type 2 diabetes: -Has not previously utilized insulin -Sliding scale insulin while inpatient -BSGs every 6 hours while n.p.o., and then transition back to [facility] COPD: -Utilizes Advair at home, as well as is chronically on 2 L nasal cannula support Diet: N.p.o. at this time CODE STATUS: DNR/DNI (2) CML (chronic myelocytic leukemia): (3) Type 2 diabetes mellitus with stage 3 chronic kidney disease, without long- term current use of insulin: (4) COPD (chronic obstructive pulmonary disease): (5) On home oxygen therapy: History of Present Illness Primary Care Provider: Ok Galo MD Marycarmen Schilling is a 66-year-old female with complex medical history significant for chronic #hyperlipidemia, COPD, GERD, type 2 diabetes, chronic kidney disease stage III; who presents from her residential with concerns of low hemoglobin on blood work collected previously. Over the last several days patient has noticed scant bright red blood per rectum, occasional clots, as well as noticed some small amount of blood in her urine. Chronically is on Xarelto for her atrial fib rillation, and has been on this for many years. Has not noticed any changes in the last 4 months other than her recent abdominal surgery at [facility] in [place] last month for a bowel perforation. She notes that she has been undergoing chemotherapy treatments since November for her CML, but had stopped these in January following her continued worsening at that point in time. Allergies Allergy/AdvReac Type Severity Reaction Status Date / Time diltiazem Allergy Severe SHORTNESS Verified 05/28/21 20:43 OF BREATH AND SWELLING OF HANDS AND FACE nut - unspecified Allergy Severe Wheezing Verified 10/15/20 12:52 peanut Allergy Severe Wheezing Verified 10/15/20 12:52 Yeast Allergy Severe Wheezing Verified 10/15/20 12:52 Penicillins Allergy Intermediate WELTS IN Verified 05/28/21 20:43 MOUTH AND SPREAD TO BODY adhesive Allergy Mild BLISTERS Verified 10/15/20 12:52 latex Allergy Mild RASH Verified 05/28/21 20:43 indomethacin Allergy Unknown per pulm Verified 10/15/20 12:52 note tree and shrub pollen Allergy Unknown ELM Verified 10/15/20 12:52 TREE-RASH BLISYERS HANDS ARMS FEET allopurinol Allergy Unknown Unverified 05/28/21 20:43 febuxostat [From Uloric] Allergy Unknown Verified 05/28/21 20:45 oxycodone Allergy Unknown Verified 05/28/21 20:45 codeine AdvReac Mild N&V&GI PAIN Verified 05/28/21 20:43 paroxetine AdvReac Mild GI SYMPTOMS Verified 05/28/21 20:43 varenicline AdvReac Mild GI Verified 10/15/20 12:52 SYMPTOMS,HALLUCINATIONS linaclotide [From Linzess] AdvReac Unknown CAUSED Verified 10/15/20 12:52 ASTHMA ATTACK Home Medications Medication Instructions Recorded Confirmed Type atorvastatin 20 mg tablet 20 mg PO HS 08/31/20 05/28/21 History levothyroxine 25 mcg tablet 25 mcg PO QAM 08/31/20 05/28/21 History (Synthroid) duloxetine 20 mg capsule,delayed 40 mg PO QAM #60 cap 09/10/20 05/28/21 Rx release budesonide-formoterol HFA 160 2 puff INHALATION BID #10.2 gm 11/15/20 05/28/21 Rx mcg-4.5 mcg/actuation aerosol inhaler (Symbicort) montelukast 10 mg tablet 10 mg PO HS #30 tab 04/03/21 05/28/21 Rx rivaroxaban 20 mg tablet (Xarelto) 20 mg PO HS #90 tab 04/03/21 05/28/21 Rx acetaminophen 325 mg tablet 650 mg PO Q4 PRN 05/28/21 05/28/21 History amiodarone 200 mg tablet 200 mg PO DAILY 05/28/21 05/28/21 History cholecalciferol (vitamin D3) 25 25 mcg PO BID 05/28/21 05/28/21 History mcg (1,000 unit) tablet ferrous fumarate-ascorbic 1 tab PO DAILY 05/28/21 05/28/21 History acid-ascorbate sod 65 mg iron-125 mg tablet furosemide 40 mg tablet (Lasix) 40 mg PO DAILY 05/28/21 05/28/21 History metoprolol succinate 50 mg 50 mg PO DAILY 05/28/21 05/28/21 History tablet,extended release 24 hr midodrine 10 mg tablet 10 mg PO TID 05/28/21 05/28/21 History sodium chloride 0.65 % nasal spray 1 spray INTRANASAL TID 05/28/21 05/28/21 History aerosol (Saline Nasal) tramadol 50 mg tablet 100 mg PO Q8 PRN 05/28/21 05/28/21 History Past Med/Surg History Medical History Anxiety Asthma Atrial fibrillation on xarelto---follows with Dr. 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 CML (chronic myelocytic leukemia) F/U DR [facility] Depression Diabetes mellitus, type 2 DIET MANAGED GERD (gastroesophageal reflux disease) Hyperlipidemia Hypertension Hypothyroidism Iron deficiency anemia Kidney stones HX Lung cancer, lower lobe 2017--left--sx, chemo On anticoagulant therapy On home oxygen therapy 2L n/c continuous Sleep apnea NO LONGER USING CPAP-USES ONLY OXYGEN CONTINUOUSLY SOBOE (shortness of breath on exertion) Stress incontinence in female Temporomandibular joint disorder PAIN BILAT-HAS NEVER LOCKED Surgical History History of appendectomy History of bronchoscopy 2016 History of cardiac cath 11/2017 @ [facility]--no stents History of cholecystectomy History of colonoscopy History of dilatation and curettage History of esophagogastroduodenoscopy (EGD) History of lobectomy of lung lower left lobe 2017 @ [facility] History of open reduction and internal fixation (ORIF) procedure R upper thigh x2--pins/rods in place History of tooth extraction all teeth History of total left knee replacement (TKR) History of total right knee replacement (TKR) Family History Sister Family history of reaction to anesthesia "had an allergic reaction", not sure what happened Arthritis Family history of diabetes mellitus Heart disease Hypertension Mother Family history of diabetes mellitus Myocardial infarction Heart disease Hypertension age 63 due to [place] Grandmother Family history of diabetes mellitus maternal Family/Other Family history of diabetes mellitus maternal uncle/maternal aunts Colorectal cancer Family/Other Family hx of colon cancer paternal cousin Father age 91 Denies family history of Crohn's disease Ulcerative colitis Social History Smoking Status: Former smoker Tobacco Type: Cigarettes Age Started Using Tobacco: 8; Age Quit Using Tobacco: 62; Cigarettes Per Day: 2pks; Second Hand Exposure: No; Hx Alcohol Use: No Hx Substance Use: No Preferred Language: Greenlandic Communication Ability: Effective Visual Impairment: No Limitations Hearing Ability: Normal Biometrics Analyst Required: No Beliefs That Will Affect Care: None marital status: / Current Living Situation: Alone Current Living Situation Comment: Lives alone at home, at nursing facility for rehab before going home current occupational status: retired Other Information That Helps Us Care for You: No Feels Safe at Home: Yes Safety Concerns: Feels Safe At This Time Childhood Exposure to Second-Hand Smoke: No during the past year weight has: remained stable Dental Care, Regularly: No Physical Activity Frequency: Does not Exercise Seatbelt Use: always Sunscreen Use: No Assistive Devices: Wheelchair Review of Systems Review of Systems: All systems reviewed & are unremarkable except as noted in HPI & below Physical Exam Constitutional: WD/WN, vitals as above Eyes: PERRL, conjunctivae normal, anicteric sclerae Respiratory: normal respiratory effort, lungs clear to auscultation Auscultation: no crackles, no rales, no rhonchi and no wheezes Cardiovascular: Rate/Rhythm: regular rate and regular rhythm Heart Sounds: no gallop, no murmur and no cardiac rub Vessels: normal peripheral pulses; no JVD Extremities: no edema Gastrointestinal (Abdomen): Inspection/Auscultation: normal bowel sounds; abdomen not distended Percussion/Palpation: abdomen soft; abdomen nontender and no guarding Musculoskeletal: no cyanosis or clubbing, extremities motor strength 5/5 Skin: no rashes, warm and dry Neurologic: PERRL, EOMI, accommodation nl, no face palsy, no dysarthria CN's II-XI intact bilaterally and moves all extremities Psychiatric: Orientation: alert and oriented x 3 Results & Data Results & Data ([facility]) Vital Signs (Past 12 Hours) Vital Signs Temp Pulse Pulse Resp BP BP Pulse Ox 05/28/21 22:09 36.9 C 82 18 89/40 L 100 05/28/21 21:48 37.1 C 84 17 87/37 L 99 05/28/21 20:03 98 H 25 H 181/95 H 95 05/28/21 19:36 90 20 92/51 L 100 Laboratory Results 05/29/21 05/29/21 05/29/21 Range/Units 06:41 06:41 02:05 WBC 30.10 H* D (4.8-10.8) K/uL RBC 3.22 L (4.2-5.4) M/uL Hgb 8.8 L (12.0-16.0) g/dL Hct 27.7 L (37-47) % MCV 86.0 (80-100) fL MCH 27.3 (25-34) pg MCHC 31.8 L (32-36) g/dL RDW Std Deviation 58.4 H (36.4-46.3) fL RDW Coeff of Bruce 18.8 H (11.5-14.5) % Plt Count 437 H (130-400) K/uL MPV 10.0 (7.4-10.4) fL Absolute Nucleated RBC 0.22 H (0-0) K/uL Nucleated RBC % (auto) 0.7 % Neutrophils % (Manual) 68.5 % Lymphocytes % (Manual) 9.4 % Monocytes % (Manual) 1.7 % Eosinophils % (Manual) 3.4 % Basophils % (Manual) 6.8 % Metamyelocytes % (Man) 3.4 % Myelocytes % (Man) 6.8 % Neutrophils # (Manual) 20.62 H (1.4-6.5) K/uL Total Absolute Neuts 20.62 H (1.4-6.5) K/uL Lymphocytes # (Manual) 2.83 (1.2-3.4) K/uL Total Abs Lymphocytes 2.83 (1.2-3.4) K/uL Monocytes # (Manual) 0.51 (0.11-0.59) K/uL Eosinophils # (Manual) 1.02 H (0-0.5) K/uL Basophils # (Manual) 2.05 H (0-0.2) K/uL Metamyelocytes # (Man) 1.02 H (0-0) K/uL Myelocytes # (Manual) 2.05 H (0-0) K/uL Polychromasia 1+ Hypochromasia Anisocytosis PT (9.0-12.0) Seconds INR (0.9-1.1) APTT (21.0-31.0) Seconds PTT Ratio Sodium Pending (136-145) mmol/L Potassium Pending (3.5-5.1) mmol/L Chloride Pending (98-107) mmol/L Carbon Dioxide Pending (21-32) mmol/L Anion Gap Pending (3-11) BUN Pending (7-18) mg/dl Creatinine Pending (0.6-1.2) mg/dl Est Cr Clr Drug Dosing Pending Est GFR ( Amer) Pending ml/min Est GFR (Non-Af Amer) Pending ml/min BUN/Creatinine Ratio Pending (10-20) Glucose Pending (70-99) mg/dl POC Glucose 83 (70-99) mg/dl Calcium Pending (8.5-10.1) mg/dl Total Bilirubin (0.2-1) mg/dl AST (15-37) U/L ALT (12-78) U/L Alkaline Phosphatase (45-117) U/L Troponin I (0-0.045) ng/ml Total Protein (6.4-8.2) gm/dl Albumin (3.4-5.0) gm/dl Globulin (2.5-4.0) gm/dl Albumin/Globulin Ratio (0.9-2) Nasal Screen MRSA (PCR) (Negative) POC Stool Occult Blood (Negative) COVID-19 Eval Order SARS-CoV-2 (PCR) (Negative) Blood Type Antibody Screen Crossmatch 07/28/21 07/27/21 07/27/21 Range/Units 01:30 Unknown 20:35 WBC (4.8-10.8) K/uL RBC (4.2-5.4) M/uL Hgb (12.0-16.0) g/dL Hct (37-47) % MCV (80-100) fL MCH (25-34) pg MCHC (32-36) g/dL RDW Std Deviation (36.4-46.3) fL RDW Coeff of Bruce (11.5-14.5) % Plt Count (130-400) K/uL MPV (7.4-10.4) fL Absolute Nucleated RBC (0-0) K/uL Nucleated RBC % (auto) % Neutrophils % (Manual) % Lymphocytes % (Manual) % Monocytes % (Manual) % Eosinophils % (Manual) % Basophils % (Manual) % Metamyelocytes % (Man) % Myelocytes % (Man) % Neutrophils # (Manual) (1.4-6.5) K/uL Total Absolute Neuts (1.4-6.5) K/uL Lymphocytes # (Manual) (1.2-3.4) K/uL Total Abs Lymphocytes (1.2-3.4) K/uL Monocytes # (Manual) (0.11-0.59) K/uL Eosinophils # (Manual) (0-0.5) K/uL Basophils # (Manual) (0-0.2) K/uL Metamyelocytes # (Man) (0-0) K/uL Myelocytes # (Manual) (0-0) K/uL Polychromasia Hypochromasia Anisocytosis PT (9.0-12.0) Seconds INR (0.9-1.1) APTT (21.0-31.0) Seconds PTT Ratio Sodium (136-145) mmol/L Potassium (3.5-5.1) mmol/L Chloride (98-107) mmol/L Carbon Dioxide (21-32) mmol/L Anion Gap (3-11) BUN (7-18) mg/dl Creatinine (0.6-1.2) mg/dl Est Cr Clr Drug Dosing Est GFR ( Amer) ml/min Est GFR (Non-Af Amer) ml/min BUN/Creatinine Ratio (10-20) Glucose (70-99) mg/dl POC Glucose (70-99) mg/dl Calcium (8.5-10.1) mg/dl Total Bilirubin (0.2-1) mg/dl AST (15-37) U/L ALT (12-78) U/L Alkaline Phosphatase (45-117) U/L Troponin I (0-0.045) ng/ml Total Protein (6.4-8.2) gm/dl Albumin (3.4-5.0) gm/dl Globulin (2.5-4.0) gm/dl Albumin/Globulin Ratio (0.9-2) Nasal Screen MRSA (PCR) Negative (Negative) POC Stool Occult Blood Positive A (Negative) COVID-19 Eval Order SARS-CoV-2 (PCR) NEGATIVE (Negative) Blood Type Antibody Screen Crossmatch 05/28/21 05/28/21 05/28/21 Range/Units 20:35 20:14 19:57 WBC (4.8-10.8) K/uL RBC (4.2-5.4) M/uL Hgb (12.0-16.0) g/dL Hct (37-47) % MCV (80-100) fL MCH (25-34) pg MCHC (32-36) g/dL RDW Std Deviation (36.4-46.3) fL RDW Coeff of Bruce (11.5-14.5) % Plt Count (130-400) K/uL MPV (7.4-10.4) fL Absolute Nucleated RBC (0-0) K/uL Nucleated RBC % (auto) % Neutrophils % (Manual) % Lymphocytes % (Manual) % Monocytes % (Manual) % Eosinophils % (Manual) % Basophils % (Manual) % Metamyelocytes % (Man) % Myelocytes % (Man) % Neutrophils # (Manual) (1.4-6.5) K/uL Total Absolute Neuts (1.4-6.5) K/uL Lymphocytes # (Manual) (1.2-3.4) K/uL Total Abs Lymphocytes (1.2-3.4) K/uL Monocytes # (Manual) (0.11-0.59) K/uL Eosinophils # (Manual) (0-0.5) K/uL Basophils # (Manual) (0-0.2) K/uL Metamyelocytes # (Man) (0-0) K/uL Myelocytes # (Manual) (0-0) K/uL Polychromasia Hypochromasia Anisocytosis PT 17.1 H (9.0-12.0) Seconds INR 1.8 H (0.9-1.1) APTT 46.1 H* (21.0-31.0) Seconds PTT Ratio 1.8 Sodium (136-145) mmol/L Potassium (3.5-5.1) mmol/L Chloride (98-107) mmol/L Carbon Dioxide (21-32) mmol/L Anion Gap (3-11) BUN (7-18) mg/dl Creatinine (0.6-1.2) mg/dl Est Cr Clr Drug Dosing Est GFR ( Amer) ml/min Est GFR (Non-Af Amer) ml/min BUN/Creatinine Ratio (10-20) Glucose (70-99) mg/dl POC Glucose (70-99) mg/dl Calcium (8.5-10.1) mg/dl Total Bilirubin (0.2-1) mg/dl AST (15-37) U/L ALT (12-78) U/L Alkaline Phosphatase (45-117) U/L Troponin I (0-0.045) ng/ml Total Protein (6.4-8.2) gm/dl Albumin (3.4-5.0) gm/dl Globulin (2.5-4.0) gm/dl Albumin/Globulin Ratio (0.9-2) Nasal Screen MRSA (PCR) (Negative) POC Stool Occult Blood (Negative) COVID-19 Eval Order Covid19 at [facility] SARS-CoV-2 (PCR) (Negative) Blood Type A Negative Antibody Screen NEGATIVE Crossmatch See Detail 05/28/21 05/28/21 Range/Units 19:55 19:55 WBC 45.80 H* (4.8-10.8) K/uL RBC 2.87 L (4.2-5.4) M/uL Hgb 7.5 L (12.0-16.0) g/dL Hct 24.7 L (37-47) % MCV 86.1 (80-100) fL MCH 26.1 (25-34) pg MCHC 30.4 L (32-36) g/dL RDW Std Deviation 63.6 H (36.4-46.3) fL RDW Coeff of Bruce 20.4 H (11.5-14.5) % Plt Count 585 H (130-400) K/uL MPV 10.5 H (7.4-10.4) fL Absolute Nucleated RBC 0.46 H (0-0) K/uL Nucleated RBC % (auto) 1.0 % Neutrophils % (Manual) 77.2 % Lymphocytes % (Manual) 5.3 % Monocytes % (Manual) 5.3 % Eosinophils % (Manual) 2.6 % Basophils % (Manual) 3.5 % Metamyelocytes % (Man) 2.6 % Myelocytes % (Man) 3.5 % Neutrophils # (Manual) 35.36 H (1.4-6.5) K/uL Total Absolute Neuts 35.36 H (1.4-6.5) K/uL Lymphocytes # (Manual) 2.43 (1.2-3.4) K/uL Total Abs Lymphocytes 2.43 (1.2-3.4) K/uL Monocytes # (Manual) 2.43 H (0.11-0.59) K/uL Eosinophils # (Manual) 1.19 H (0-0.5) K/uL Basophils # (Manual) 1.60 H (0-0.2) K/uL Metamyelocytes # (Man) 1.19 H (0-0) K/uL Myelocytes # (Manual) 1.60 H (0-0) K/uL Polychromasia 1+ Hypochromasia Present Anisocytosis Present PT (9.0-12.0) Seconds INR (0.9-1.1) APTT (21.0-31.0) Seconds PTT Ratio Sodium 135 L (136-145) mmol/L Potassium 4.5 (3.5-5.1) mmol/L Chloride 96 L (98-107) mmol/L Carbon Dioxide 32 (21-32) mmol/L Anion Gap 6.0 (3-11) BUN 27 H (7-18) mg/dl Creatinine 1.41 H (0.6-1.2) mg/dl Est Cr Clr Drug Dosing Not Reportable Est GFR ( Amer) 44.3 ml/min Est GFR (Non-Af Amer) 38.2 ml/min BUN/Creatinine Ratio 18.9 (10-20) Glucose 101 H (70-99) mg/dl POC Glucose (70-99) mg/dl Calcium 8.5 (8.5-10.1) mg/dl Total Bilirubin 0.5 (0.2-1) mg/dl AST 23 (15-37) U/L ALT 17 (12-78) U/L Alkaline Phosphatase 118 H (45-117) U/L Troponin I < 0.015 (0-0.045) ng/ml Total Protein 6.4 (6.4-8.2) gm/dl Albumin 1.7 L (3.4-5.0) gm/dl Globulin 4.7 H (2.5-4.0) gm/dl Albumin/Globulin Ratio 0.4 L (0.9-2) Nasal Screen MRSA (PCR) (Negative) POC Stool Occult Blood (Negative) COVID-19 Eval Order SARS-CoV-2 (PCR) (Negative) Blood Type Antibody Screen Crossmatch Medications Administered Home Medication List Medication Instructions Recorded atorvastatin 20 mg tablet 20 mg PO HS 08/31/20 levothyroxine 25 mcg tablet 25 mcg PO QAM 08/31/20 (Synthroid) duloxetine 20 mg capsule,delayed 40 mg PO QAM #60 cap 09/10/20 release budesonide-formoterol HFA 160 2 puff INHALATION BID #10.2 gm 11/15/20 mcg-4.5 mcg/actuation aerosol inhaler (Symbicort) montelukast 10 mg tablet 10 mg PO HS #30 tab 04/03/21 rivaroxaban 20 mg tablet (Xarelto) 20 mg PO HS #90 tab 04/03/21 acetaminophen 325 mg tablet 650 mg PO Q4 PRN 05/28/21 amiodarone 200 mg tablet 200 mg PO DAILY 05/28/21 cholecalciferol (vitamin D3) 25 25 mcg PO BID 05/28/21 mcg (1,000 unit) tablet ferrous fumarate-ascorbic 1 tab PO DAILY 05/28/21 acid-ascorbate sod 65 mg iron-125 mg tablet furosemide 40 mg tablet (Lasix) 40 mg PO DAILY 05/28/21 metoprolol succinate 50 mg 50 mg PO DAILY 05/28/21 tablet,extended release 24 hr midodrine 10 mg tablet 10 mg PO TID 05/28/21 sodium chloride 0.65 % nasal spray 1 spray INTRANASAL TID 05/28/21 aerosol (Saline Nasal) tramadol 50 mg tablet 100 mg PO Q8 PRN 05/28/21 Supervising Physician Co-Signing Physician Notes Attending addendum: I have physically seen this patient, have supervised the medical residents activities, and agree with the H&P unless as otherwise noted. Assessment and Plan: Acute GI bleed/bright red blood per rectum- Hold Xarelto, will not reverse at this time unless there is more significant bleeding Receiving 2 units PRBCs overnight H&H every 6 hours Consult gastroenterology Diabetes mellitus- Placed on Accu-Cheks before meals and at bedtime with NovoLog coverage per scale Check hemoglobin A1c CML- Obtaining records from [facility] regarding chemotherapy Remaining orders and notations as noted Resident Activity Tracking Resident Involvement: Resident Care Provided Care Provided: Adult Hospital Medicine (1) COPD (chronic obstructive pulmonary disease) COPD type: emphysema Emphysema type: unspecified Qualified Code(s): J43.9 - Emphysema, unspecified
[2021-05-29] MEDS ORDERED: NITROGLYCERIN SL 0.4 MG/TAB TAB SL PRN (01:24)
[2021-05-29] MEDS ORDERED: MoRPHine SULFATE 2 MG/ML CARP IV PRN (01:24)
[2021-05-29] MEDS ORDERED: SODIUM CHLORIDE 0.9% 250 ML IV PRN ×2 (02:04→12:50)
[2021-05-29] MEDS: PANTOprazole 40 MG in DEXTROSE 5% 100 ML IV SCH ×5 (02:08→21:17)
[2021-05-29] MEDS: LEVOTHYROXINE SODIUM 25 MCG TABLET PO SCH (06:00)
--- NOTE | 2021-05-29 06:32 | XRay Report ---
XR chest 1V portable HISTORY: 66 years-old Female sob eval for pna acute shortness of breath COMPARISON: Chest CT 06/06/2020, chest radiograph 01/13/2020 TECHNIQUE: Portable AP view of the chest FINDINGS: Cardiac silhouette is enlarged. Pulmonary vascular congestion with mild interstitial coarsening. Emph ysema. Mild left hemidiaphragmatic elevation. Minimal subsegmental bibasilar densities with small ple ural effusions. Degenerative changes of the shoulders and spine. IMPRESSION: 1. Cardiomegaly with pulmonary vascular congestion and interstitial coarsening suggestive of pulmonar y edema. 2. Small pleural effusions with mild bibasilar atelectasis. 3. Emphysema. ACT 112: Negative or not required by law. The above report was generated using voice recognition software. It may contain grammatical, syntax o r spelling errors. Electronically signed by: Wayne Cortez M.D. 05/29/2021 6:31 AM
[2021-05-29 07:09] LABS: Hematocrit (blood only) 27.7 % (37-47); Hemoglobin 8.8 g/dL (12.0-16.0); Mean Corpuscular Hemoglobin 27.3 pg (25-34); Mean Corpuscular Hgb Conc 31.8 g/dL (32-36); Nucleated RBC # (auto) 0.22 K/uL (0-0); Nucleated RBC % (auto) 0.7 %; Platelet Count 437 K/uL (130-400); RDW Coefficient of Variation 18.8 % (11.5-14.5); RDW Standard Deviation 58.4 fL (36.4-46.3); Red Blood Count 3.22 M/uL (4.2-5.4)
[2021-05-29 07:23] LABS: ALC (manual) 2.83 K/uL (1.2-3.4); ANC (manual) 20.62 K/uL (1.4-6.5); Basophils # (manual) 2.05 K/uL (0-0.2); Basophils % (manual) 6.8 %; Eosinophils # (manual) 1.02 K/uL (0-0.5); Eosinophils % (manual) 3.4 %; Lymphocytes # (manual) 2.83 K/uL (1.2-3.4); Lymphocytes % (manual) 9.4 %; Metamyelocytes # (manual) 1.02 K/uL (0-0); Metamyelocytes % (manual) 3.4 %; Monocytes # (manual) 0.51 K/uL (0.11-0.59); Monocytes % (manual) 1.7 %; Myelocytes # (manual) 2.05 K/uL (0-0); Myelocytes % (manual) 6.8 %; Neutrophils # (manual) 20.62 K/uL (1.4-6.5); Neutrophils % (manual) 68.5 %; Polychromasia 1+
[2021-05-29] MEDS ORDERED: DEXTROSE 50% 50 ML SYRINGE IV PRN (07:40)
[2021-05-29] MEDS ORDERED: GLUCOSE 10 TABS/TUBE PO PRN (07:40)
[2021-05-29] MEDS ORDERED: GLUCOSE 40% GEL 15 GM TUBE PO PRN (07:40)
[2021-05-29] MEDS ORDERED: GLUCAGON FOR INJ 1 MG VIAL SQ PRN (07:40)
[2021-05-29] MEDS ORDERED: CARBOHYDRATES FOR HYPOGLYCEMIA PO PRN (07:40)
[2021-05-29 07:58] LABS: BUN Creatinine Ratio 21.9 (10-20); Calcium 8.3 mg/dl (8.5-10.1); Creatinine Clr Calc Pharmacy 52.3 ml/min; Est GFR (African American) 51.2 ml/min; Est GFR (Non-African American) 44.2 ml/min; Potassium 3.6 mmol/L (3.5-5.1)
[2021-05-29] MEDS: INSULIN ASPART 100 UNITS/ML 3 ML PEN SC SCH ×4 (08:22→21:23)
[2021-05-29] MEDS: AMIODARONE 200 MG TAB PO SCH (08:51)
[2021-05-29] MEDS: FLUTICASONE/VILANTEROL 100/25MCG 14 PUFFS/INHALER INH SCH (08:51)
[2021-05-29] MEDS: METOPROLOL SUCC 50MG EXT REL TAB PO SCH (08:52)
[2021-05-29] MEDS: MIDODRINE HCL 10 MG TAB PO SCH ×3 (08:52→21:24)
[2021-05-29] MEDS: FUROSEMIDE 40 MG TAB PO SCH (08:52)
[2021-05-29] MEDS: traMADol HCL 50 MG TABLET PO PRN (08:57)
--- NOTE | 2021-05-29 09:04 | Electrocardiogram Report ---
Test Reason : Blood Pressure : / mmHG Vent. Rate : 091 BPM Atrial Rate : 093 BPM P-R Int : 000 ms QRS Dur : 100 ms QT Int : 398 ms P-R-T Axes : 000 005 140 degrees QTc Int : 489 ms Atrial fibrillation Poor R wave progression, consider anterior WI vs. lead placement vs. LVH Abnormal ECG When compared with ECG of 10-JAN-2021 12:00, Left posterior fascicular block is no longer Present T wave amplitude has decreased in Anterior leads Confirmed by Jaquan Rosenbaum ([id number]) on 05/29/2021 9:03:49 AM Referred By: Shante Rosales Confirmed By:Jaquan Rosenbaum
--- NOTE | 2021-05-29 09:43 | Gastrointestinal Consultation ---
Date of Consultation May 29, 2021 Assessment & Plan (1) Acute GI bleeding: -Given patient is 1 month post-op from a colectomy, would recommend a CT abdomen/pelvis with po & IV contrast be obtained STAT -Continue to monitor H/H & BP -Further recommendations pending results of imaging study; pending results and clinical picture, patient could potentially need to return to tertiary center Supervising Physician Co-Signing Physician Notes Agree with LESTER Hayes as above Abd: Soft, NT, ND, Ostomy in LLQ, Stoma dark red, brown semi-solid stool in bag CT imaging consistent with Retroperitoneal bleed Hold Anticoagulation at present Discussed case with Dr. Crawford of Hospitalist team Continue current therapy and supportive care History of Present Illness Reason for Consultation: GI bleeding Attending Physician: Carmelina Crawford MD History of Present Illness Patient is a 66 yo female with PMH of CML currently undergoing chemotherapy, atrial fibrillation on Xarelto, HLD, COPD with home oxygen use, GERD, CKD3, ANI, non-small cell lung cancer, osteoarthiritis, DM2, and hypertension who [facility] bright blood per rectum & per stoma. Since admission, per discussion with nursing she has only been observed to have blood per stoma. She was admitted last month for diverticulitis with perforation but due to her medical comorbidities, she was transferred to [place] where she underwent a colectomy. H/H 8.8/27.7. No GI symptoms otherwise. No abdominal imaging was obtained at the time of admission. Last colonoscopy was in 2019. BP this AM is 86/49. No pertinent family history. Allergies Allergy/AdvReac Type Severity Reaction Status Date / Time diltiazem Allergy Severe SHORTNESS Verified 05/28/21 20:43 OF BREATH AND SWELLING OF HANDS AND FACE nut - unspecified Allergy Severe Wheezing Verified 10/15/20 12:52 peanut Allergy Severe Wheezing Verified 10/15/20 12:52 Yeast Allergy Severe Wheezing Verified 10/15/20 12:52 Penicillins Allergy Intermediate WELTS IN Verified 05/28/21 20:43 MOUTH AND SPREAD TO BODY adhesive Allergy Mild BLISTERS Verified 10/15/20 12:52 latex Allergy Mild RASH Verified 05/28/21 20:43 indomethacin Allergy Unknown per pulm Verified 10/15/20 12:52 note tree and shrub pollen Allergy Unknown ELM Verified 10/15/20 12:52 TREE-RASH BLISYERS HANDS ARMS FEET allopurinol Allergy Unknown Unverified 05/28/21 20:43 febuxostat [From Uloric] Allergy Unknown Verified 05/28/21 20:45 oxycodone Allergy Unknown Verified 05/28/21 20:45 codeine AdvReac Mild N&V&GI PAIN Verified 05/28/21 20:43 paroxetine AdvReac Mild GI SYMPTOMS Verified 05/28/21 20:43 varenicline AdvReac Mild GI Verified 10/15/20 12:52 SYMPTOMS,HALLUCINATIONS linaclotide [From Linzess] AdvReac Unknown CAUSED Verified 10/15/20 12:52 ASTHMA ATTACK Home Medications Medication Instructions Recorded Confirmed Type atorvastatin 20 mg tablet 20 mg PO HS 08/31/20 05/28/21 History levothyroxine 25 mcg tablet 25 mcg PO QAM 08/31/20 05/28/21 History (Synthroid) duloxetine 20 mg capsule,delayed 40 mg PO QAM #60 cap 09/10/20 05/28/21 Rx release budesonide-formoterol HFA 160 2 puff INHALATION BID #10.2 gm 11/15/20 05/28/21 Rx mcg-4.5 mcg/actuation aerosol inhaler (Symbicort) montelukast 10 mg tablet 10 mg PO HS #30 tab 04/03/21 05/28/21 Rx rivaroxaban 20 mg tablet (Xarelto) 20 mg PO HS #90 tab 04/03/21 05/28/21 Rx acetaminophen 325 mg tablet 650 mg PO Q4 PRN 05/28/21 05/28/21 History amiodarone 200 mg tablet 200 mg PO DAILY 05/28/21 05/28/21 History cholecalciferol (vitamin D3) 25 25 mcg PO BID 05/28/21 05/28/21 History mcg (1,000 unit) tablet ferrous fumarate-ascorbic 1 tab PO DAILY 05/28/21 05/28/21 History acid-ascorbate sod 65 mg iron-125 mg tablet furosemide 40 mg tablet (Lasix) 40 mg PO DAILY 05/28/21 05/28/21 History metoprolol succinate 50 mg 50 mg PO DAILY 05/28/21 05/28/21 History tablet,extended release 24 hr midodrine 10 mg tablet 10 mg PO TID 05/28/21 05/28/21 History sodium chloride 0.65 % nasal spray 1 spray INTRANASAL TID 05/28/21 05/28/21 History aerosol (Saline Nasal) tramadol 50 mg tablet 100 mg PO Q8 PRN 05/28/21 05/28/21 History Patient History Medical History Anxiety Asthma Atrial fibrillation on xarelto---follows with Dr. 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 CML (chronic myelocytic leukemia) F[facility] Depression Diabetes mellitus, type 2 DIET MANAGED GERD (gastroesophageal reflux disease) Hyperlipidemia Hypertension Hypothyroidism Iron deficiency anemia Kidney stones HX Lung cancer, lower lobe 2017--left--sx, chemo On anticoagulant therapy On home oxygen therapy 2L n/c continuous Sleep apnea NO LONGER USING CPAP-USES ONLY OXYGEN CONTINUOUSLY SOBOE (shortness of breath on exertion) Stress incontinence in female Temporomandibular joint disorder PAIN BILAT-HAS NEVER LOCKED Surgical History History of appendectomy History of bronchoscopy 2016 History of cardiac cath 11/2017 @ [facility]--no stents History of cholecystectomy History of colonoscopy History of dilatation and curettage History of esophagogastroduodenoscopy (EGD) History of lobectomy of lung lower left lobe 2017 @ [facility] History of open reduction and internal fixation (ORIF) procedure R upper thigh x2--pins/rods in place History of tooth extraction all teeth History of total left knee replacement (TKR) History of total right knee replacement (TKR) Family History Sister Family history of reaction to anesthesia "had an allergic reaction", not sure what happened Arthritis Family history of diabetes mellitus Heart disease Hypertension Mother Family history of diabetes mellitus Myocardial infarction Heart disease Hypertension age 63 due to GA Grandmother Family history of diabetes mellitus maternal Family/Other Family history of diabetes mellitus maternal uncle/maternal aunts Colorectal cancer Family/Other Family hx of colon cancer paternal cousin Father age 91 Denies family history of Crohn's disease Ulcerative colitis Social History Smoking Status: Former smoker Tobacco Type: Cigarettes Age Started Using Tobacco: 8; Age Quit Using Tobacco: 62; Cigarettes Per Day: 2pks; Second Hand Exposure: No; Hx Alcohol Use: No Hx Substance Use: No Preferred Language: Uzbek Communication Ability: Effective Visual Impairment: No Limitations Hearing Ability: Normal Latent Print Examiner Required: No Beliefs That Will Affect Care: None marital status: / Current Living Situation: Alone Current Living Situation Comment: Lives alone at home, at nursing facility for rehab before going home current occupational status: retired Other Information That Helps Us Care for You: No Feels Safe at Home: Yes Safety Concerns: Feels Safe At This Time Childhood Exposure to Second-Hand Smoke: No during the past year weight has: remained stable Dental Care, Regularly: No Physical Activity Frequency: Does not Exercise Seatbelt Use: always Sunscreen Use: No Assistive Devices: Wheelchair Review of Systems Constitutional: no fever and no chills Respiratory: + dyspnea on exertion Cardiovascular: no chest pain Gastrointestinal: + blood in stools; no abdominal pain Blood in ostomy bag Physical Exam Constitutional: + ill appearing Respiratory: no respiratory distress Cardiovascular: Rate/Rhythm: regular rate Extremities: + edema Gastrointestinal (Abdomen): ostomy in place, dark red blood around stoma, no tenderness Psychiatric: Orientation: alert Results & Data ([facility]) Vital Signs (Past 12 Hours) Vital Signs Temp Pulse Pulse Resp BP BP Pulse Ox 05/29/21 08:05 36.7 C 73 14 86/49 L 100 05/29/21 05:42 36.5 C 66 15 89/49 L 100 05/29/21 03:39 36.5 C 82 16 92/52 L 95 05/29/21 03:09 36.6 C 84 13 102/50 L 100 05/29/21 02:54 36.6 C 74 12 100/50 L 100 05/29/21 02:37 36.9 C 77 17 95/48 L 100 05/29/21 01:30 36.8 C 81 13 83/55 L 100 05/29/21 01:25 37 C 77 18 100 05/29/21 00:25 76 13 84/50 L 100 05/28/21 23:00 85 15 90/46 L 98 05/28/21 22:09 36.9 C 82 18 89/40 L 100 05/28/21 21:48 37.1 C 84 17 87/37 L 99 PG Care Time/CCT Total # of Minutes Spent Total Time Spent with Patient: Total time spent is greater than 50% in coordination of care (as documented) at patient's floor/unit and/or counseling patient: Coding Level of Care Code 64079 Initial Inpt Care Lvl 3 Diagnoses Acute GI bleeding K92.2
--- NOTE | 2021-05-29 09:55 | Hospitalist Progress Note ---
Date of Service May 29, 2021 Assessment & Plan (1) Acute GI bleeding: Plan: Marycarmen Schilling is a 66-year-old female with complex medical history significant for paroxysmal Afib on Xarelto, HTN, hyperlipidemia, COPD, GERD, type 2 diabetes, chronic kidney disease stage III, CHF, who presents from her [facility] with bleeding in her colostomy bag and concerns of low hemoglobin 7.2. Acute Blood loss anemia secondary to ?GI bleed: -Pt's presenting symptoms were few days of bright red blood in colostomy bag, associated fatigue and dyspnea, likely lower GI bleed. -Received 2 units of blood since admission with Hgb improving from 7.5 to 8.6 now. Improving in regard to symptoms, no blood seen in ostomy bag. -Consult GI in-house for evaluation, will also contact GI surgeon who performed pt's bowel resection at [facility] to obtain further history. -Pt's BPs have been 80s-90s systolic over 40s/50s diastolic, which appears to be her baseline. -250ml NSS bolus. -Continue pantoprazole drip 40 mg -Continue trending Hgb. Given pt's history of cardiac disease, will transfuse PRBC if Hgb <8 -Continue to hold Xarelto Orthostatic hypotension -Will restart home midodrine if pt remains hemodynamically stable. HTN -Pt's HTN typically managed with Lasix and metoprolol. Will hold Lasix and metoprolol for now given pt's low BPs and GI bleed to prevent hypovolemia and hypotension. Will monitor BPs, restart metoprolol if pressures stable and no active bleeding. Type 2 diabetes: -Has not previously utilized insulin -Sliding scale insulin while inpatient -BSGs every 6 hours while n.p.o CML: -Uncertain what chemotherapy patient was previously on. Pt can likely continue chemotherapy on outpatient basis with heme/onc after stabilization and treatment of acute lower GI bleed. -WBC of 30, Plts of 437. Likely elevated 2/2 due to leukemia rather than acute infection or thrombosis. Diet: N.p.o. at this time, sips allowed DVT ppx: SCDs, avoid chemical ppx given bleeding risk CODE STATUS: DNR/DNI (2) CML (chronic myelocytic leukemia): (3) Type 2 diabetes mellitus with stage 3 chronic kidney disease, without long- term current use of insulin: (4) COPD (chronic obstructive pulmonary disease): (5) Hypertension: Admission and Anticipated Discharge Date Admission Date: May 28, 2021 Supervising Physician Co-Signing Physician Notes Resident Physician Supervision Note: I independently interviewed and examined the patient and verified the byrd history and physical, reviewed labs and image studies and agree with resident Dr. Galvan findings and care plan. Subjective Pt reports feeling better today, no complaints of dyspnea or lightheadedness. She has been producing stool in her ostomy bag, states it is close to regular color, quality and consistency. Denies any abdominal or chest pain, states she has been tolerating small sips of liquids. Review of Systems Constitutional: no fever and no chills Respiratory: no dyspnea Cardiovascular: no chest pain Gastrointestinal: no abdominal pain, no nausea, no vomiting and no blood in stools Slightly dark stools Physical Exam Constitutional: WD/WN, vitals as above Eyes: + anicteric sclerae and EOM intact bilaterally Respiratory: no respiratory distress Auscultation: + diminished lung sounds (minor) and + rhonchi; no crackles and no wheezes Cardiovascular: Heart Sounds: normal S1, normal S2 and + murmur (vague diastolic murmur) Vessels: normal peripheral pulses; no JVD Extremities: no edema Gastrointestinal (Abdomen): Inspection/Auscultation: normal bowel sounds; abdomen not distended Percussion/Palpation: abdomen soft; abdomen nontender and no guarding Dixon from bowel surgery still in place, though no discharge, redness or warmth. Incision clean, dry. Colostomy bag contains brown stool with slight darkening, though not melena. Musculoskeletal: no cyanosis or clubbing, extremities motor strength 5/5 Skin: no rashes, warm and dry Neurologic: PERRL, EOMI, accommodation nl, no face palsy, no dysarthria CN's II-XI intact bilaterally and moves all extremities Psychiatric: Orientation: alert and oriented x 3 Results & Data Results & Data ([facility]) Vital Signs (Past 12 Hours) Vital Signs Temp Pulse Pulse Resp BP BP Pulse Ox 05/29/21 08:05 36.7 C 73 14 86/49 L 100 05/29/21 05:42 36.5 C 66 15 89/49 L 100 05/29/21 03:39 36.5 C 82 16 92/52 L 95 05/29/21 03:09 36.6 C 84 13 102/50 L 100 05/29/21 02:54 36.6 C 74 12 100/50 L 100 05/29/21 02:37 36.9 C 77 17 95/48 L 100 05/29/21 01:30 36.8 C 81 13 83/55 L 100 05/29/21 01:25 37 C 77 18 100 05/29/21 00:25 76 13 84/50 L 100 05/28/21 23:00 85 15 90/46 L 98 05/28/21 22:09 36.9 C 82 18 89/40 L 100 Resident Activity Tracking Resident Involvement: Resident Care Provided Care Provided: Adult Hospital Medicine (1) COPD (chronic obstructive pulmonary disease) COPD type: emphysema Emphysema type: unspecified Qualified Code(s): J43.9 - Emphysema, unspecified (2) Hypertension Hypertension type: essential hypertension Qualified Code(s): I10 - Essential (primary) hypertension
[2021-05-29 10:33] LABS: Hematocrit (blood only) 26.8 % (37-47); Hemoglobin 8.6 g/dL (12.0-16.0)
[2021-05-29] MEDS ORDERED: OPTIRAY 320 100ml IV ONE (12:00)
--- NOTE | 2021-05-29 12:31 | CT Scan Report ---
CT OF THE ABDOMEN AND PELVIS WITH CONTRAST CLINICAL HISTORY: Rectal bleeding 1 month post-op COMPARISON STUDY: CT of the abdomen and pelvis April 18, 2021. TECHNIQUE: Following IV administration of 94 mL of Optiray, axial images of the abdomen and pelvis we re obtained from the lung bases to the proximal femurs. Images were reviewed in the axial, sagittal, and coronal planes. IV contrast was administered without complication. Automated exposure control wa s utilized for the study. A dose lowering technique was utilized adhering to the principles of ALARA . Oral contrast was administered. CT DOSE: 1385.54 mGy.cm FINDINGS: Imaged portions of the lower chest demonstrate small right and trace left pleural effusions . There are postoperative findings within the left lower lobe. Anasarca is noted with body wall edema . No pneumatosis, free air or portal venous gas is present. There is no significant biliary ductal di latation status post cholecystectomy. The spleen and adrenal glands are unremarkable with the excepti on of small adrenal nodules which are unchanged. These are benign. A few cystic lesions within the pa ncreas measuring up to 2.2 cm are unchanged since MRI of June 14, 2020. These favor side branch IPM Ns. There is no pancreatic ductal dilatation. Numerous water attenuation bilateral renal lesions refl ect cysts. Hyperdense lesions were shown to represent hyperdense cysts on prior noncontrast CT. No hy dronephrosis. There are postoperative findings consistent with interval left colon resection with tra nsverse colostomy. Sensitivity for detection about mucosal lesions is diminished given CT technique b ut none are identified. Note is made of a small amount of intramuscular hemorrhage within the left ps oas muscle with moderate amount of hemorrhage within the left iliacus muscle. Adjacent left retroperi toneal hematoma is measure up to 4.3 cm. There is mucosal enhancement of the bladder with adjacent in filtration. Evidence for bilateral sacroiliitis is again noted. There is no evidence for a bowel obst ruction. Moderate amount of stool within the colon is noted. IMPRESSION: 1. Status post interval left colon resection with transverse colostomy. Small to moderate amount of i ntramuscular hemorrhage within the left psoas and iliacus muscles with an adjacent retroperitoneal he matoma that measures 4.3 cm. 2. Anasarca with body wall edema. Small right and trace left pleural effusions. 3. Prominent mucosal enhancement of the bladder with adjacent infiltration which could be correlated with urinalysis to exclude cystitis. 4. No bowel obstruction. Moderate amount stool within the colon. ACT 112: Negative or not required by law. Electronically signed by: Sandor Ibrahim M.D. 05/29/2021 12:30 PM
[2021-05-29 14:18] LABS: BUN Creatinine Ratio 21.2 (10-20); Calcium 8.2 mg/dl (8.5-10.1); Creatinine Clr Calc Pharmacy 53.4 ml/min; Est GFR (African American) 51.7 ml/min; Est GFR (Non-African American) 44.6 ml/min
[2021-05-29 19:44] LABS: Hematocrit (blood only) 27.5 % (37-47); Hemoglobin 8.6 g/dL (12.0-16.0); Mean Corpuscular Hemoglobin 26.8 pg (25-34); Mean Corpuscular Hgb Conc 31.3 g/dL (32-36); Mean Corpuscular Volume 85.7 fL (80-100); Mean Platelet Volume 10.4 fL (7.4-10.4); Nucleated RBC % (auto) 0.7 %; Platelet Count 445 K/uL (130-400); Red Blood Count 3.21 M/uL (4.2-5.4); White Blood Count 28.42 K/uL (4.8-10.8)
--- NOTE | 2021-05-29 20:37 | Billing Data ---
Date of Service May 29, 2021 Coding Level of Care Code 74203 Initial Inpt Care Lvl 3
[2021-05-29] MEDS: ATORVASTATIN 20 MG TAB PO SCH (21:24)
[2021-05-30] MEDS: PANTOprazole 40 MG in DEXTROSE 5% 100 ML IV SCH ×4 (02:31→17:35)
[2021-05-30 05:24] LABS: Mean Corpuscular Hgb Conc 30.7 g/dL (32-36); Mean Platelet Volume 9.9 fL (7.4-10.4); Nucleated RBC # (auto) 0.12 K/uL (0-0); Nucleated RBC % (auto) 0.4 %; Platelet Count 443 K/uL (130-400)
[2021-05-30 05:47] LABS: Hematocrit (blood only) 27.4 % (37-47); Hemoglobin 8.4 g/dL (12.0-16.0); Mean Corpuscular Hemoglobin 26.7 pg (25-34); RDW Coefficient of Variation 19.4 % (11.5-14.5); RDW Standard Deviation 61.3 fL (36.4-46.3); Red Blood Count 3.15 M/uL (4.2-5.4); White Blood Count 26.37 K/uL (4.8-10.8)
[2021-05-30 05:49] LABS: ALC (manual) 1.34 K/uL (1.2-3.4); Basophils % (manual) 7.6 %; Eosinophils # (manual) 0.66 K/uL (0-0.5); Eosinophils % (manual) 2.5 %; Lymphocytes # (manual) 1.34 K/uL (1.2-3.4); Lymphocytes % (manual) 5.1 %; Metamyelocytes % (manual) 14.4 %; Monocytes # (manual) 0.66 K/uL (0.11-0.59); Monocytes % (manual) 2.5 %; Myelocytes # (manual) 1.11 K/uL (0-0); Myelocytes % (manual) 4.2 %; Neutrophils % (manual) 63.7 %; Polychromasia 1+
[2021-05-30 05:50] LABS: Calcium 8.4 mg/dl (8.5-10.1); Creatinine Clr Calc Pharmacy 58.6 ml/min; Est GFR (African American) 57.8 ml/min; Est GFR (Non-African American) 49.9 ml/min; Potassium 3.8 mmol/L (3.5-5.1)
[2021-05-30] MEDS: INSULIN ASPART 100 UNITS/ML 3 ML PEN SC SCH ×3 (06:17→18:31)
[2021-05-30] MEDS: LEVOTHYROXINE SODIUM 25 MCG TABLET PO SCH (06:17)
[2021-05-30] MEDS: traMADol HCL 50 MG TABLET PO PRN ×2 (06:23→17:35)
[2021-05-30] MEDS: METOPROLOL SUCC 50MG EXT REL TAB PO SCH (08:08)
[2021-05-30] MEDS: AMIODARONE 200 MG TAB PO SCH (08:08)
[2021-05-30] MEDS: MIDODRINE HCL 10 MG TAB PO SCH ×3 (08:08→20:15)
[2021-05-30] MEDS: FUROSEMIDE 40 MG TAB PO SCH (08:08)
[2021-05-30 08:51] LABS: Appearance Urine Slightly Cloudy (Clear); Bilirubin Urine Negative (Negative); Blood Urine 3+ (Negative); Color Urine Red; Glucose Urine UA Negative (Negative); Ketones Urine Negative (Negative); Leukocyte Esterase Urine Trace (Negative); Nitrite Urine Negative (Negative); Protein Urine 3+ (Negative); Urobilinogen Urine Negative (Negative)
[2021-05-30 08:59] LABS: Bacteria Urine 2+ (Negative); Hyaline Casts Urine 0-5 /lpf (0-5); RBC Urine >30 /hpf (0-4)
--- NOTE | 2021-05-30 09:15 | Hospitalist Progress Note ---
Date of Service May 30, 2021 Assessment & Plan (1) Acute GI bleeding: Plan: Marycarmen Schilling is a 66-year-old female with complex medical history significant for paroxysmal Afib on Xarelto, HTN, hyperlipidemia, COPD, GERD, type 2 diabetes, chronic kidney disease stage III, CHF, who presents from her halfway with bleeding in her colostomy bag and concerns of low hemoglobin 7.2. Acute blood loss anemia sec to spontaneous bleeds on Xarelto - GI bleed, retroperitoneal hematoma, hematuria -Pt's presenting with lab results of lower hb and symptoms of few days of bright red blood in colostomy bag, associated fatigue and dyspnea. Received 2 units of blood since admission with Hgb improving from 7.5 on admission to 8.4 now. Improving in regard to symptoms, no blood seen in ostomy bag. -GI consulted 05/29, CTAP obtained demonstrating mild-moderate intramuscular hemorrhage and retroperitoneal hematoma. -Awaiting contact from [facility] GI surgeon who performed pt's bowel resection in April to obtain further history and recommendations about management. Conside ring removal of surgical hardy today. -Continue pantoprazole drip 40 mg -Continue trending Hgb Hct q6h. Given pt's history of cardiac disease, will transfuse unit of PRBC if Hgb < 8 -Continue to hold Xarelto s/p Laparotomy with colon resection and ostomy for bowel perforation at [facility] 5- 6wks ago -to get info and remove hardy. Hematuria -possibly from infection. -monitor closely Dysuria -Pt's complaint of burning on urination, dysuria concerning for potential UTI. Urinalysis sent, positive for WBCs, bacteria, trace leukocyte esterase. -Initiated Ceftriaxone 1 g IV for UTI Orthostatic hypotension -Home midodrine restarted given pt has been hemodynamically stable. Atrial fibrillation -On amiodarone, metoprolol -Xarelto on hold Chronic diastolic CHF -resumed lasix. Malnutrion -Albumin 1.7 Type 2 diabetes: -Accu-Checks before meals and bedtime with Novolog coverage per scale -HbA1C ordered, pending CML: -Uncertain what chemotherapy patient was previously on. Pt can likely continue chemotherapy on outpatient basis with heme/onc after stabilization and treatment of acute lower GI bleed. Will try to obtain records from [facility] about past treatment. -WBC of 26.37, Plts of 443. Likely elevated 2/2 due to leukemia rather than acute infection or thrombosis. Chronic hypoxic respiratory failure -Home O2 Diet: N.p.o. at this time, sips allowed DVT ppx: SCDs, avoid chemical ppx given bleeding risk CODE STATUS: DNR/DNI (2) CML (chronic myelocytic leukemia): (3) Type 2 diabetes mellitus with stage 3 chronic kidney disease, without long- term current use of insulin: (4) COPD (chronic obstructive pulmonary disease): (5) Hypertension: Admission and Anticipated Discharge Date Admission Date: May 28, 2021 Supervising Physician Co-Signing Physician Notes Resident Physician Supervision Note: I independently interviewed and examined the patient and verified the byrd history and physical, reviewed labs and image studies and agree with resident Dr. Galvan findings and care plan. Spoke to Dr. Schwarz (covering for the trauma surgeon who operated on her - Dr. Marty Nielsen) - Concern of trauma causing retroperitoneal bleed and hematuria. Disussed at length - since post op - poor appetite. lost 15lbs (could be side effect from amiodarone though) contributing to malnutrition and spontaneous bleeding in setting of being on xarelto. Discussed transfer to [facility] for coordination of care in post op setting. Ok to remove hardy. Called transfer line and patient accepted by Dr. Arellano. Patient would like to wait to talk to her daughter being consenting to transfer. Spent 45 min with coordination of care, talking to speciality and multiple visits with patient. Subjective Pt reports painful burning urination with drops of blood noticed in urine but denies flank pain. Otherwise no complaints, denies abdominal or chest pain, no dyspnea or lightheadedness. Producing some brown stool in ostomy bag. States she can breathe more easily when supine compared to day prior. Review of Systems Constitutional: no fever and no chills Respiratory: no dyspnea Cardiovascular: no chest pain Gastrointestinal: no abdominal pain, no nausea, no vomiting and no blood in stools Brown stool, slightly dark Genitourinary: + dysuria and + hematuria Physical Exam Constitutional: WD/WN, vitals as above + obese; no acute distress Eyes: PERRL, conjunctivae normal, anicteric sclerae + anicteric sclerae and EOM intact bilaterally Respiratory: normal respiratory effort, lungs clear to auscultation no respiratory distress Auscultation: + diminished lung sounds (minor), + rhonchi and + wheezes (inspiratory wheeze); no crackles Cardiovascular: Rate/Rhythm: regular rate and regular rhythm Heart Sounds: normal S1 and normal S2 Vessels: normal peripheral pulses Extremities: + edema (Bilateral +4 edema) No murmur appreciated today Gastrointestinal (Abdomen): Inspection/Auscultation: normal bowel sounds; abdomen not distended Percussion/Palpation: abdomen soft; abdomen nontender and no guarding Surgical hardy along incision from colectomy, dry and crusting with no discharge, intact Ostomy bag containing brown stool, slightly dark Musculoskeletal: no cyanosis or clubbing, extremities motor strength 5/5 Skin: no rashes, warm and dry Neurologic: PERRL, EOMI, accommodation nl, no face palsy, no dysarthria normal touch/pain/proprioception and moves all extremities Psychiatric: Orientation: alert and oriented x 3 Results & Data Results & Data ([facility]) Vital Signs (Past 12 Hours) Vital Signs Temp Pulse Pulse Resp BP BP Pulse Ox 05/30/21 08:12 36.9 C 104/63 05/30/21 08:01 91 H 9 L 100/54 L 94 05/30/21 06:28 36.6 C 95 H 13 109/69 100 05/30/21 02:35 36.8 C 90 12 108/56 L 98 05/29/21 23:45 36.9 C 99 H 14 112/55 L 100 Resident Activity Tracking Resident Involvement: Resident Care Provided Care Provided: Adult Hospital Medicine (1) COPD (chronic obstructive pulmonary disease) COPD type: emphysema Emphysema type: unspecified Qualified Code(s): J43.9 - Emphysema, unspecified (2) Hypertension Hypertension type: essential hypertension Qualified Code(s): I10 - Essential (primary) hypertension
[2021-05-30 10:56] LABS: Estimated Average Glucose 108 mg/dl; Hemoglobin A1C 5.4 % (4.5-5.6)
[2021-05-30] MEDS: FLUTICASONE/VILANTEROL 100/25MCG 14 PUFFS/INHALER INH SCH (11:30)
[2021-05-30] MEDS ORDERED: cefTRIAXone SODIUM 2,000 MG in DEXTROSE 5% 50 ML IV SCH (12:15)
[2021-05-30 14:44] LABS: Hematocrit (blood only) 28.1 % (37-47); Hemoglobin 8.9 g/dL (12.0-16.0)
[2021-05-30 15:56] LABS: INR 1.3 (0.9-1.1); Prothrombin Time 12.8 Seconds (9.0-12.0)
[2021-05-30] MEDS: ATORVASTATIN 20 MG TAB PO SCH (20:15)
[2021-05-31] MEDS ORDERED: DULoxetine HCL 20 MG CAP PO SCH (09:00)
--- NOTE | 2021-06-07 08:33 | Discharge Summary ---
Date of Service May 31, 2021 Admission HPI Per Admitting Provider Marycarmen Schilling is a 66-year-old female with complex medical history significant for chronic #hyperlipidemia, COPD, GERD, type 2 diabetes, chronic kidney disease stage III; who presents from her senior living with concerns of low hemoglobin on blood work collected previously. Over the last several days patient has noticed scant bright red blood per rectum, occasional clots, as well as noticed some small amount of blood in her urine. Chronically is on Xarelto for her atrial fibrillation, and has been on this for many years. Has not noticed any changes in the last 4 months other than her recent abdominal surgery at [facility] in [place] last month for a bowel perforation. She notes that she has been undergoing chemotherapy treatments since November for her CML, but had stopped these in January following her continued worsening at that point in time. Principal Diagnosis Acute blood loose anemia Discharge Exam Constitutional WD/WN, vitals as above Respiratory normal respiratory effort, lungs clear to auscultation Cardiovascular Normal rate. irregular Gastrointestinal (Abdomen) Soft, Ostomy with no blood or dark stool, non-tender, non-distended Psychiatric A+Ox3, euthymic affect Discharge Data Allergies Allergy/AdvReac Type Severity Reaction Status Date / Time diltiazem Allergy Severe SHORTNESS Verified 05/28/21 20:43 OF BREATH AND SWELLING OF HANDS AND FACE nut - unspecified Allergy Severe Wheezing Verified 10/15/20 12:52 peanut Allergy Severe Wheezing Verified 10/15/20 12:52 Yeast Allergy Severe Wheezing Verified 10/15/20 12:52 Penicillins Allergy Intermediate WELTS IN Verified 05/28/21 20:43 MOUTH AND SPREAD TO BODY adhesive Allergy Mild BLISTERS Verified 10/15/20 12:52 latex Allergy Mild RASH Verified 05/28/21 20:43 indomethacin Allergy Unknown per pulm Verified 10/15/20 12:52 note tree and shrub pollen Allergy Unknown ELM Verified 10/15/20 12:52 TREE-RASH BLISYERS HANDS ARMS FEET allopurinol Allergy Unknown Unverified 05/28/21 20:43 febuxostat [From Uloric] Allergy Unknown Verified 05/28/21 20:45 oxycodone Allergy Unknown Verified 05/28/21 20:45 codeine AdvReac Mild N&V&GI PAIN Verified 05/28/21 20:43 paroxetine AdvReac Mild GI SYMPTOMS Verified 05/28/21 20:43 varenicline AdvReac Mild GI Verified 10/15/20 12:52 SYMPTOMS,HALLUCINATIONS linaclotide [From Linzess] AdvReac Unknown CAUSED Verified 10/15/20 12:52 ASTHMA ATTACK Consultations 05/28/21 21:19 ED Decision to Admit Stat 05/29/21 07:29 Consult Gastroenterology Routine 05/30/21 07:42 Consult Health Information Management Routine 05/30/21 17:21 Burn CD for patient Stat Ordered Studies 05/29/21 09:22 CT abd pelvis oral and IV con Stat Hospital Course (1) Acute GI bleeding: Marycarmen Schilling is a 66-year-old female with complex medical history significant for paroxysmal Afib on Xarelto, HTN, hyperlipidemia, COPD, GERD, type 2 diabetes, chronic kidney disease stage III, CHF, who presents from her senior living with bleeding in her colostomy bag and concerns of low hemoglobin 7.2. Acute blood loss anemia sec to spontaneous bleeds on Xarelto - GI bleed, retroperitoneal hematoma, hematuria -Pt's presenting with lab results of lower hb and symptoms of few days of bright red blood in colostomy bag, associated fatigue and dyspnea. Received 2 units of blood since admission with Hgb improving from 7.5 on admission to 8.4 now. Improving in regard to symptoms, no blood seen in ostomy bag. -GI consulted 05/29, CTAP obtained demonstrating mild-moderate intramuscular hemorrhage and retroperitoneal hematoma. -While awaiting awaiting contact from [facility] GI surgeon who performed pt's bowel resection in April to obtain further history and recommendations about management she was kept on pantoprazole drip and h/h were trended and Xarelto was held. Patient started to also have hematuria in the setting significant protein- calorie malnutrition since her last hospital stay. After contacting [facility] covering trauma physician - and dis cussion of complexity considering spontaneous bleeding - retroperitoneal bleed, hematuria, GI bleed and setting of severe protein - calorie malnutrition, poor oral intake - while being recent post op from colon resection due to bowel performation - She was transferred to [facility] s/p Laparotomy with colon resection and ostomy for bowel perforation at [facility] 5- 6wks ago -hardy were removed after discussing with tertiary care before patient was transferred. Hematuria/Dysuria -possibly from infection/spontaneous bleed -Initiated Ceftriaxone 1 g IV for UTI Orthostatic hypotension -Home midodrine was initially held and restarted given pt has been hemodynamically stable. Atrial fibrillation -On amiodarone, metoprolol -Xarelto on hold Chronic diastolic CHF -resumed lasix. Severe protein- calorie Malnutrion -Albumin 1.7 Type 2 diabetes: -Accu-Checks before meals and bedtime with Novolog coverage per scale -HbA1C CML: -Uncertain what chemotherapy patient was previously on. Pt can likely continue chemotherapy on outpatient basis with heme/onc after stabilization and treatment of acute lower GI bleed. Tried to obtain records from [facility] about past treatment but didn't receive before transfer. -WBC of 26.37, Plts of 443. Likely elevated 2/2 due to leukemia rather than acute infection or thrombosis. Chronic hypoxic respiratory failure -Home O2 Diet: Diet advanced DVT ppx: SCDs, avoid chemical ppx given bleeding risk CODE STATUS: DNR/DNI (2) CML (chronic myelocytic leukemia): (3) Type 2 diabetes mellitus with stage 3 chronic kidney disease, without long- term current use of insulin: (4) COPD (chronic obstructive pulmonary disease): (5) Hypertension: Total Time Total Time Spent Total Time Spent (In Minutes): 45 Discharge Plan Discharge Items Patient Disposition: Transfer Acute Care Hospital Reason For Visit: GI BLEED Discharge Diagnosis: retroperitoneal bleed Activity: Per Instructions section Non-emergency contact: Primary Care Provider and Surgeon Call non-emergency contact if: you have any medication questions and your symptoms worsen Follow-up/Referrals: Octavio Galo MD [Primary Care Provider] - Diet: Carb Consistent or DM2 Diet Texture: Dental soft (bite-sized) Addtl Attending Provider Instructions: Marycarmen Schilling is a 66-year-old female with complex medical history significant for paroxysmal Afib on Xarelto, HTN, hyperlipidemia, COPD, GERD, type 2 diabetes, chronic kidney disease stage III, CHF, who presents from her senior living with bleeding in her colostomy bag and concerns of low hemoglobin 7.2. Acute blood loss anemia sec to spontaneous bleeds on Xarelto - GI bleed, retroperitoneal hematoma, hematuria -Pt's presenting with lab results of lower hgb and symptoms of few days of bright red blood in colostomy bag, associated fatigue and dyspnea. Received 2 units of blood since admission with Hgb improving from 7.5 on admission to 8.4 now. Improving in regard to symptoms, no blood seen in ostomy bag. -GI consulted 05/29, CTAP obtained demonstrating mild-moderate intramuscular hemorrhage and retroperitoneal hematoma. -Awaiting contact from [facility] GI surgeon who performed pt's bowel resection in April to obtain further history and recommendations about management. Considering removal of surgical hardy today. -Continue pantoprazole drip 40 mg -Continue trending Hgb Hct q6h. Given pt's history of cardiac disease, will transfuse unit of PRBC if Hgb < 8 -Continue to hold Xarelto s/p Laparotomy with colon resection and ostomy for bowel perforation at [facility] 5- 6wks ago -to get info and remove hardy. Hematuria -possibly from infection. -monitor closely Dysuria -Pt's complaint of burning on urination, dysuria concerning for potential UTI. Urinalysis sent, positive for WBCs, bacteria, trace leukocyte esterase. -Initiated Ceftriaxone 1 g IV for UTI Orthostatic hypotension -Home midodrine restarted given pt has been hemodynamically stable. Atrial fibrillation -On amiodarone, metoprolol -Xarelto on hold Chronic diastolic CHF -resumed lasix. Malnutrion -Albumin 1.7 Type 2 diabetes: -continue sliding scale while inpatient CML: -Uncertain what chemotherapy patient was previously on. Pt can likely continue chemotherapy on outpatient basis with heme/onc after stabilization and treatment of acute lower GI bleed. -WBC of 26.37, Plts of 443. Likely elevated 2/2 due to leukemia rather than acute infection or thrombosis. Chronic hypoxic respiratory failure -Home O2 Pending Studies at Discharge: No Stand-Alone Forms: My [facility] Skilled Items Patient informed of condition?: Yes DNR: Yes Discharge Level of Care: Other Communicable Disease: No Discharge Prognosis: Stable Lines: Peripheral IV Urinary Catheter: No Medications and DC Order Prescriptions: Continued budesonide-formoterol [Symbicort] 160-4.5 mcg/actuation HFA aerosol inhaler 2 puff INHALATION BID Qty: 10.2 RF: 5 montelukast 10 mg tablet 10 mg PO HS Qty: 30 RF: 5 atorvastatin 20 mg tablet 20 mg PO HS RF: 0 levothyroxine [Synthroid] 25 mcg tablet 25 mcg PO QAM RF: 0 furosemide [Lasix] 40 mg tablet 40 mg PO DAILY RF: 0 tramadol 50 mg tablet 100 mg PO Q8 PRN (Reason: lower abdominal pain) RF: 0 amiodarone 200 mg tablet 200 mg PO DAILY RF: 0 metoprolol succinate 50 mg tablet extended release 24 hr 50 mg PO DAILY RF: 0 midodrine 10 mg tablet 10 mg PO TID RF: 0 cholecalciferol (vitamin D3) 25 mcg (1,000 unit) Tablet 25 mcg PO BID RF: 0 sodium chloride [Saline Nasal] 0.65 % Aerosol,[place] 1 spray INTRANASAL TID RF: 0 Discontinued duloxetine 20 mg capsule,delayed release(DR/EC) 40 mg PO QAM Qty: 60 RF: 11 Xarelto 20 mg tablet 20 mg PO HS Qty: 90 RF: 3 acetaminophen 325 mg Tablet 650 mg PO Q4 PRN (Reason: Pain, Mild) RF: 0 iron fum-vit C-ascorbate sod 65 mg iron- 125 mg Tablet 1 tab PO DAILY RF: 0 Discharge Orders: Discharge Order (Routine); Ordered 05/30/21 Ordered By: Brannon Petty Admission Data Admit Date/Time: 05/28/21 23:53 Attending Provider: Carmelina Crawford Admit Provider: Brannon Petty Primary Care Provider: Octavio Galo Other Providers: Shante Rosales ; Chris Avitia ; Morgan Bojorquez Other Interventions: Discharge Summary Assessment (RN) Last Done: 05/30/21 21:43
--- NOTE | 2021-06-09 13:35 | Coding Query ---
CODING QUERY To promote full compliance with coding requirements relating to patient care, provider participation is requested in all cases of credit checker uncertainty. Please assist us with the question(s) below: Coding Question(s): There is documentation in the record of, "Acute blood loss anemia sec to spontaneous bleeds on Xarelto - GI bleed, retroperitoneal hematoma, hematuria", and the Progress Note 05/30 documents, "Disussed at length - since post op - poor appetite. lost 15lbs (could be side effect from amiodarone though) contributing to malnutrition and spontaneous bleeding in setting of being on xarelto". Please specify below, in your clinical opinion, regarding, the spontaneous bleeds on Xarelto, and in the setting of Xarelto. ( x ) spontaneous bleeds likely due to Xarelto ( ) spontaneous bleeds likely not due to Xarelto, just an adverse effect of Xarelto contributing to it ( ) spontaneous bleeds, Other: Please Specify ( ) spontaneous bleeds unspecified Physician's Response(s): Thank you Aniyah Pitt Principal Diagnosis: "that condition established after study, to be chiefly responsible for occasioning the admission of the patient to the hospital for care." Co-Existing Principal Diagnosis: "when two or more diagnoses equally meet the criteria for principal diagnosis as determined by the circumstances of admission, diagnostic work up, and/or therapy provided, and the Alphabetic Index, Tabular List, or another coding guideline does not provide sequencing direction, any one of the diagnoses may be sequenced first." "When the physician has documented what appears to be a current diagnosis in the body of the record, but has not included the diagnosis in the final diagnostic statement, the physician should be asked whether the diagnosis should be added." (Source Coding Clinic 2 QTR90. p3-4) JEAN
== END 2021-05-30 21:30 | disposition short-term general hospital (02) | DRG 377 ==
LOC: ED 19:07 → SUATTDRO 23:53 → 1E 23:53

== ENCOUNTER 2021-09-14 12:27 | Inpatient (IN) ==
[2021-09-14] MEDS ORDERED: METOPROLOL TARTRATE 1 MG/ML VIAL IV STA ×2 (13:49→15:15)
[2021-09-14] MEDS ORDERED: ONDANSETRON INJ 2 MG/ML 2 ML VIAL IV STA (13:49)
[2021-09-14] MEDS ORDERED: SODIUM CHLORIDE 0.9% 1000ML 1,000 ML IV STA (13:49)
--- NOTE | 2021-09-14 13:59 | Emergency Department Note ---
Impression & Plan Atrial fibrillation with rapid ventricular response, CML (chronic myeloid leukemia), Diffuse abdominal pain, Leukocytosis, Thrombocytosis ED Provider Note NAME: JONATHAN BOYLE AGE: 66 SEX: F : 1955 ARRIVES VIA: Ambulance INFORMANT: [Patient] ED PROVIDER(S): [Wilner Francois MD] CHIEF COMPLAINT: Abdominal pain HISTORY OF PRESENT ILLNESS: The patient is a 66-year-old female who presents with abdominal pain that began last evening. The pain is lower and fairly severe. She also has had some rectal bleeding and some rectal pain. The patient states that she had a colostomy performed in March or April of this past year. She was told that she could have some bloody discharge rectally but she has never had this much bleeding or this much pain. She states that she thought she might be constipated as this has happened before. She took some stool softeners but it has not helped. She states that her colostomy bag is currently empty. No vomiting. She has not had fever. She denies any abdominal trauma. The patient does have a history of A. fib. Her heart rate was high as per the nursing staff. She admits she has not taking any of her prescribed medications this morning. REVIEW OF SYSTEMS: See HPI for pertinent positives and negatives. A total of ten systems were reviewed and were otherwise negative. PMHx/PSHx: See Below SOCIAL HISTORY: See Below. PHYSICAL EXAM: GENERAL: Patient is in moderate distress from pain. HEENT: No acute trauma, normocephalic atraumatic, mucous membranes moist, no nasal congestion, no scleral icterus. NECK: No stridor, no adenopathy, no meningismus, trachea is midline. LUNGS: Clear to auscultation bilaterally, no wheeze, no rhonchi, breath sounds equal. HEART: No murmurs, tachycardic with an irregular rhythm. ABDOMEN: Soft, mildly diffusely tender. There is a colostomy with an empty bag on the left, no hernias, no peritonitis. EXTREMITIES: No cyanosis, mild bilateral pedal edema, full range of motion of all the joints without pain or difficulty, no signs for acute trauma. NEUROLOGIC: Oriented x 3, no acute motor or sensory deficits, no focal weakness. SKIN: No rash, no jaundice, no diaphoresis. Rectal: Brown stool noted, no bleeding. DIFFERENTIAL DIAGNOSIS: Appendicitis, ovarian cyst, ovarian torsion, diverticulitis, UTI, obstruction, mesenteric ischemia, aortic pathology, inflammatory bowel disease, renal colic, PUD, pancreatitis, biliary pathology, hernia, volvulus, constipation, as well as other pathologies. EMERGENCY DEPARTMENT COURSE/PROCEDURES: ECG: Indication was tachycardia. The ECG shows atrial fibrillation with a rate of 132. There is a poor baseline. There is a PVC. There is some nonspecific ST change diffusely. No ST elevation. The QTc is 361. Continuous Cardiac Monitoring: An order was placed for continuous cardiac monitoring. The monitor shows a rate of 140 with atrial fibrillation. Critical Care Note: I have personally spent 53 minutes of critical care time in the direct management of this patient. This includes bedside care, interpretation of diagnostic studies, and testing, discussion with consultants, patient, and family members, and other required patient management activities. This 53 minutes is in excess of all separately billable procedures. MEDICAL DECISION MAKING: There is a significant leukocytosis at 95,000, this elevation is likely, at least partly, from her untreated CML. The patient is anemic but this appears baseline. Platelet count was high at over one thousand, this is baseline. No coagulopathy. Renal panel testing shows some renal insufficiency which has been documented in the past. No significant electrolyte abnormality in need of emergent correction. Lactic acid level was not elevated making sepsis and bowel ischemia less likely. No worrisome liver enzyme elevation. ECG shows rapid atrial fibrillation, no acute ischemia. Cardiac enzyme testing x1 is not consistent with acute cardiac injury. Lipase is normal. The patient appears to be in a euthyroid state. Covid testing is negative. Chest x-ray does not show pneumonia or free air. Abdominal and pelvis CT shows improvement compared to the last CT imaging. There was no bowel obstruction, no free air. The patient was in discomfort and was aggressively managed. She was given 1.5 L of IV saline. She was given IV Zofran. She received IV Lopressor 5 mg and then a second dose of IV Lopressor 5 mg. She was given IV Dilaudid for pain control. She received IV clindamycin as empiric antibiotic coverage. The patient does seem to be improving. Her pain is less, her heart rate has decreased. She seems more comfortable. I discussed her case with on-call GI, I discussed the case with on-call hematology oncology. The patient does not need any emergent intervention from these specialties. The patient is okay to be admi tted to our hospital for care. Transfer is not required. I talked to the patient about her findings. She understands the need for a hospital stay. I did speak with case management, the on-call hospitalist has been consulted. Of note, the entire cause for her presentation is unclear. I suspect the rapid A. fib is from not being able to take her meds. GI did suggest some MiraLAX to increase bowel motility and to help with what may be some constipation related abdominal pain. Past Med/Surg History Medical History Anxiety Asthma Atrial fibrillation on xarelto---follows with Dr. 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 CML (chronic myelocytic leukemia) F/U DR PATEL-ATILIO [facility] Depression Diabetes mellitus, type 2 DIET MANAGED GERD (gastroesophageal reflux disease) Hyperlipidemia Hypertension Hypothyroidism Iron deficiency anemia Kidney stones HX Lung cancer, lower lobe 2017--left--sx, chemo On anticoagulant therapy On home oxygen therapy 2L n/c continuous Sleep apnea NO LONGER USING CPAP-USES ONLY OXYGEN CONTINUOUSLY SOBOE (shortness of breath on exertion) Stress incontinence in female Temporomandibular joint disorder PAIN BILAT-HAS NEVER LOCKED Surgical History History of appendectomy History of bronchoscopy 2016 History of cardiac cath 11/2017 @ [facility]--no stents History of cholecystectomy History of colonoscopy History of dilatation and curettage History of esophagogastroduodenoscopy (EGD) History of lobectomy of lung lower left lobe 2017 @ [facility] History of open reduction and internal fixation (ORIF) procedure R upper thigh x2--pins/rods in place History of tooth extraction all teeth History of total left knee replacement (TKR) History of total right knee replacement (TKR) Family History Sister Family history of reaction to anesthesia "had an allergic reaction", not sure what happened Arthritis Family history of diabetes mellitus Heart disease Hypertension Mother Family history of diabetes mellitus Myocardial infarction Heart disease Hypertension age 63 due to [place] Grandmother Family history of diabetes mellitus maternal Family/Other Family history of diabetes mellitus maternal uncle/maternal aunts Colorectal cancer Family/Other Family hx of colon cancer paternal cousin Father age 91 Denies family history of Crohn's disease Ulcerative colitis Social History Smoking Status: Former smoker Tobacco Type: Cigarettes Age Started Using Tobacco: 8; Age Quit Using Tobacco: 62; Cigarettes Per Day: 2pks; Second Hand Exposure: No; Hx Alcohol Use: No Hx Substance Use: No Preferred Language: Maori Communication Ability: Effective Visual Impairment: No Limitations Hearing Ability: Normal [employer] Project [employer] Required: No Beliefs That Will Affect Care: None marital status: / Current Living Situation: Alone Current Living Situation Comment: Lives alone at home, at nursing facility for rehab before going home current occupational status: retired Feels Safe at Home: Yes Childhood Exposure to Second-Hand Smoke: No during the past year weight has: remained stable Dental Care, Regularly: No Physical Activity Frequency: Does not Exercise Seatbelt Use: always Sunscreen Use: No Assistive Devices: Walker Allergies Allergies Allergy/AdvReac Type Severity Reaction Status Date / Time diltiazem Allergy Severe SHORTNESS Verified 08/22/21 09:30 OF BREATH AND SWELLING OF HANDS AND FACE nut - unspecified Allergy Severe Wheezing Verified 08/22/21 09:30 peanut Allergy Severe Wheezing Verified 08/22/21 09:30 Yeast Allergy Severe Wheezing Verified 08/22/21 09:30 Penicillins Allergy Intermediate WELTS IN Verified 08/22/21 09:30 MOUTH AND SPREAD TO BODY adhesive Allergy Mild BLISTERS Verified 08/22/21 09:30 latex Allergy Mild RASH Verified 08/22/21 09:30 indomethacin Allergy Unknown per pulm Verified 08/22/21 09:30 note tree and shrub pollen Allergy Unknown ELM Verified 08/22/21 09:30 TREE-RASH BLISYERS HANDS ARMS FEET allopurinol Allergy Unknown Unverified 08/22/21 09:30 febuxostat [From Uloric] Allergy Unknown Verified 08/22/21 09:30 oxycodone Allergy Unknown Verified 08/22/21 09:30 codeine AdvReac Mild N&V&GI PAIN Verified 08/22/21 09:30 paroxetine AdvReac Mild GI SYMPTOMS Verified 08/22/21 09:30 varenicline AdvReac Mild GI Verified 08/22/21 09:30 SYMPTOMS,HALLUCINATIONS linaclotide [From Linzess] AdvReac Unknown CAUSED Verified 08/22/21 09:30 ASTHMA ATTACK Home Meds Home Medications Medication Instructions Recorded Confirmed acetaminophen 325 mg tablet 650 mg PO Q4 PRN 05/28/21 09/14/21 cholecalciferol (vitamin D3) 25 25 mcg PO BID 05/28/21 09/14/21 mcg (1,000 unit) tablet sodium chloride 0.65 % nasal spray 1 spray INTRANASAL TID 05/28/21 09/14/21 aerosol (Saline Nasal) metoprolol succinate 50 mg 12.5 mg PO BID tab 08/13/21 09/14/21 tablet,extended release 24 hr umeclidinium 62.5 mcg/actuation 1 inh INHALATION DAILY 08/13/21 09/14/21 blister powder for inhalation (Incruse Ellipta) aspirin 81 mg tablet,delayed 81 mg PO DAILY 08/22/21 09/14/21 release (Adult Aspirin Regimen) Previous Rx's Medication Instructions Recorded duloxetine 20 mg capsule,delayed 40 mg PO QAM #60 cap 09/10/20 release budesonide-formoterol HFA 160 2 puff INHALATION BID #10.2 gm 11/15/20 mcg-4.5 mcg/actuation aerosol inhaler (Symbicort) montelukast 10 mg tablet 10 mg PO HS #30 tab 04/03/21 atorvastatin 20 mg tablet 20 mg PO HS #90 tab 08/22/21 levothyroxine 50 mcg tablet 50 mcg PO DAILY #90 tab 08/22/21 midodrine 10 mg tablet 10 mg PO TID #90 tab 08/22/21 omeprazole 20 mg capsule,delayed 20 mg PO DAILY #90 cap 08/22/21 release promethazine 25 mg tablet 25 mg PO TID PRN #90 tab 08/22/21 torsemide 20 mg tablet 40 mg PO DAILY #120 tab 08/22/21 tramadol 50 mg tablet 100 mg PO Q8 PRN #180 tab 08/22/21 Results & Data (ED) Vital Signs Vital Signs - 24 hr 09/14/21 12:37 09/14/21 13:38 09/14/21 13:40 Temperature 36.7 C Temperature Source Temporal Artery Scan Pulse Rate 140 H 135 H 138 H Pulse Rate [Right Finger] Pulse Rate from SpO2 Sensor Respiratory Rate 20 23 21 Blood Pressure 101/63 Blood Pressure [Right Arm] Blood Pressure Mean 75 Blood Pressure Mean [Right Arm] Pulse Oximetry 97 Oxygen Delivery Method Nasal Cannula Oxygen Flow Rate 2 Sepsis Recent Fever Within 48 Hours No Sepsis New/Unexplained Change in Mental Status N/A Sepsis Action Taken by Nursing No Action Required 09/14/21 13:49 09/14/21 13:50 09/14/21 14:00 Temperature Temperature Source Pulse Rate 128 H 124 H Pulse Rate [Right Finger] Pulse Rate from SpO2 Sensor 128 H 124 H Respiratory Rate 20 15 Blood Pressure 108/55 L Blood Pressure [Right Arm] Blood Pressure Mean 72 Blood Pressure Mean [Right Arm] Pulse Oximetry 99 98 100 Oxygen Delivery Method Room Air Oxygen Flow Rate Sepsis Recent Fever Within 48 Hours Sepsis New/Unexplained Change in Mental Status Sepsis Action Taken by Nursing 09/14/21 16:07 Temperature Temperature Source Pulse Rate Pulse Rate [Right Finger] 112 H Pulse Rate from SpO2 Sensor Respiratory Rate 20 Blood Pressure Blood Pressure [Right Arm] 108/55 L Blood Pressure Mean Blood Pressure Mean [Right Arm] 72 Pulse Oximetry 95 Oxygen Delivery Method Oxygen Flow Rate Sepsis Recent Fever Within 48 Hours Sepsis New/Unexplained Change in Mental Status Sepsis Action Taken by Prison Medications Current Medication List: was personally reviewed by me Laboratory Data Attestation: I reviewed the patient's lab results. Result diagrams: 09/14/21 13:55 09/14/21 13:55 Lab Results 09/14/21 09/14/21 09/14/21 Range/Units 13:55 13:55 13:55 WBC 95.28 H* (4.8-10.8) K/uL RBC 3.60 L (4.2-5.4) M/uL Hgb 9.9 L (12.0-16.0) g/dL Hct 30.2 L (37-47) % MCV 83.9 (80-100) fL MCH 27.5 (25-34) pg MCHC 32.8 (32-36) g/dL RDW Std Deviation 55.6 H (36.4-46.3) fL RDW Coeff of Bruce 18.7 H (11.5-14.5) % Plt Count 1121 H* (130-400) K/uL MPV 11.3 H (7.4-10.4) fL Absolute Nucleated RBC 0.41 H (0-0) K/uL Nucleated RBC % (auto) 0.4 % Neutrophils % (Manual) 78.6 % Lymphocytes % (Manual) 3.8 % Monocytes % (Manual) 1.9 % Eosinophils % (Manual) 0.6 % Basophils % (Manual) 9.4 % Myelocytes % (Man) 5.7 % Neutrophils # (Manual) 74.89 H (1.4-6.5) K/uL Total Absolute Neuts 74.89 H (1.4-6.5) K/uL Lymphocytes # (Manual) 3.62 H (1.2-3.4) K/uL Total Abs Lymphocytes 3.62 H (1.2-3.4) K/uL Monocytes # (Manual) 1.81 H (0.11-0.59) K/uL Eosinophils # (Manual) 0.57 H (0-0.5) K/uL Basophils # (Manual) 8.96 H (0-0.2) K/uL Myelocytes # (Manual) 5.43 H (0-0) K/uL Polychromasia 1+ PT 11.8 (9.0-12.0) Seconds INR 1.2 H (0.9-1.1) APTT 29.4 (21.0-31.0) Seconds PTT Ratio 1.1 Sodium 137 (136-145) mmol/L Potassium 3.6 (3.5-5.1) mmol/L Chloride 99 (98-107) mmol/L Carbon Dioxide 27 (21-32) mmol/L Anion Gap 11.0 (3-11) BUN 55 H (7-18) mg/dl Creatinine 1.80 H (0.6-1.2) mg/dl Est Cr Clr Drug Dosing Not Reportable Est GFR ( Amer) 32.9 ml/min Est GFR (Non-Af Amer) 28.4 ml/min BUN/Creatinine Ratio 30.6 H (10-20) Glucose 110 H (70-99) mg/dl Lactate (0.4-2.0) mmol/L Calcium 9.2 (8.5-10.1) mg/dl Magnesium 1.8 (1.8-2.4) mg/dl Total Bilirubin 0.6 (0.2-1) mg/dl AST 25 (15-37) U/L ALT 17 (12-78) U/L Alkaline Phosphatase 144 H (45-117) U/L Troponin I < 0.015 (0-0.045) ng/ml Total Protein 6.7 (6.4-8.2) gm/dl Albumin 2.1 L (3.4-5.0) gm/dl Globulin 4.6 H (2.5-4.0) gm/dl Albumin/Globulin Ratio 0.5 L (0.9-2) Lipase 70 L (73-393) U/L TSH 2.380 (0.300-4.500) uIu/ml COVID-19 Eval Order SARS-CoV-2 (PCR) (Negative) 09/14/21 09/14/21 09/14/21 Range/Units 14:37 Unknown Unknown WBC (4.8-10.8) K/uL RBC (4.2-5.4) M/uL Hgb (12.0-16.0) g/dL Hct (37-47) % MCV (80-100) fL MCH (25-34) pg MCHC (32-36) g/dL RDW Std Deviation (36.4-46.3) fL RDW Coeff of Bruce (11.5-14.5) % Plt Count (130-400) K/uL MPV (7.4-10.4) fL Absolute Nucleated RBC (0-0) K/uL Nucleated RBC % (auto) % Neutrophils % (Manual) % Lymphocytes % (Manual) % Monocytes % (Manual) % Eosinophils % (Manual) % Basophils % (Manual) % Myelocytes % (Man) % Neutrophils # (Manual) (1.4-6.5) K/uL Total Absolute Neuts (1.4-6.5) K/uL Lymphocytes # (Manual) (1.2-3.4) K/uL Total Abs Lymphocytes (1.2-3.4) K/uL Monocytes # (Manual) (0.11-0.59) K/uL Eosinophils # (Manual) (0-0.5) K/uL Basophils # (Manual) (0-0.2) K/uL Myelocytes # (Manual) (0-0) K/uL Polychromasia PT (9.0-12.0) Seconds INR (0.9-1.1) APTT (21.0-31.0) Seconds PTT Ratio Sodium (136-145) mmol/L Potassium (3.5-5.1) mmol/L Chloride (98-107) mmol/L Carbon Dioxide (21-32) mmol/L Anion Gap (3-11) BUN (7-18) mg/dl Creatinine (0.6-1.2) mg/dl Est Cr Clr Drug Dosing Est GFR ( Amer) ml/min Est GFR (Non-Af Amer) ml/min BUN/Creatinine Ratio (10-20) Glucose (70-99) mg/dl Lactate 1.0 (0.4-2.0) mmol/L Calcium (8.5-10.1) mg/dl Magnesium (1.8-2.4) mg/dl Total Bilirubin (0.2-1) mg/dl AST (15-37) U/L ALT (12-78) U/L Alkaline Phosphatase (45-117) U/L Troponin I (0-0.045) ng/ml Total Protein (6.4-8.2) gm/dl Albumin (3.4-5.0) gm/dl Globulin (2.5-4.0) gm/dl Albumin/Globulin Ratio (0.9-2) Lipase (73-393) U/L TSH (0.300-4.500) uIu/ml COVID-19 Eval Order Covid19 at [facility] SARS-CoV-2 (PCR) NEGATIVE (Negative) Administered Medications Hydromorphone HCl (Hydromorphone Inj 0.5 Mg/0.5 Ml Syr) 0.5 mg IV Q15M PRN PRN Reason: Pain Stop: 09/28/21 13:48 Last Admin: 09/14/21 15:31 Dose: 0.5 mg Documented by: [id number] Admin: 09/14/21 14:09 Dose: 0.5 mg Documented by: [id number] Discontinued Medications Sodium Chloride (Nss 1000ml) 1,000 mls @ 999 mls/hr IV .Q1H1M STA Stop: 09/14/21 14:49 Last Infusion: 09/14/21 14:49 Dose: 0 mls/hr Documented by: [id number] Admin: 09/14/21 14:07 Dose: 999 mls/hr Documented by: [id number] Metoprolol Tartrate (Metoprolol Tartrate 1 Mg/Ml Vial) 5 mg IV NOW STA Stop: 09/14/21 13:50 Last Admin: 09/14/21 14:07 Dose: 5 mg Documented by: [id number] Metoprolol Tartrate (Metoprolol Tartrate 1 Mg/Ml Vial) 5 mg IV NOW STA Stop: 09/14/21 15:16 Last Admin: 09/14/21 15:31 Dose: 5 mg Documented by: [id number] Ondansetron HCl (Ondansetron Inj 2 Mg/Ml 2 Ml Vial) 4 mg IV NOW STA Stop: 09/14/21 13:50 Last Admin: 09/14/21 14:07 Dose: 4 mg Documented by: [id number] Imaging Data Radiologist's Impression: Chest X-Ray 09/14/21 13:50 XR chest 1V portable CLINICAL HISTORY: abd pain. Evaluate the lung bases COMPARISON STUDY: 05/28/2021 TECHNIQUE: 1 view of the chest FINDINGS: Single frontal view of the chest demonstrates the cardiomediastinal silhouette to be within normal limits. There is a decreased inspiratory effort with elevation of the hemidiaphragms and crowding of the bronchovascular markings at the lung bases and centrally. The lungs are clear of alveolar opacities. There is no evidence for pleural effusion. There is no evidence for vascular congestion. There is no acute osseous pathology. IMPRESSION: There is a decreased inspiratory effort with otherwise no acute chest disease. ACT 112: Negative or not required by law. Electronically signed by: Tigre Vasquze M.D. 09/14/2021 2:31 PM Abdomen/Pelvis CT 09/14/21 13:52 CT abd pelvis wo con CLINICAL HISTORY: Abdominal pain. Evaluate for bowel obstruction. COMPARISON STUDY: 05/29/2021 CT DOSE: 817.32 mGy.cm TECHNIQUE: Standard CT of the Abdomen and Pelvis was performed without IV contrast. The patient did not receive oral contrast. A dose lowering technique was utilized adhering to the principles of ALARA. FINDINGS: Lung base: Compared to the previous examination, there is small residual right pleural effusion and minimal pleural thickening on the left. Abdominal cavity: There is no evidence for abdominal mass, adenopathy or ascites. Compared to previous examination, there has been interval resolution of previously identified retroperitoneal hematoma on the left. Left iliopsoas muscle is now within normal limits. Liver: The liver is homogeneous in attenuation on these limited noncontrast images.. Spleen: The spleen is homogeneous in attenuation on these limited noncontrast images. Pancreas: The pancreas is homogeneous in attenuation on these limited noncontr ast images. Small left pancreatic body cyst is again seen and unchanged. It is not well imaged on this noncontrast study. Gall Bladder: Surgical clips are again seen from previous cholecystectomy. Adrenal glands: Small subcentimeter adrenal nodule is again seen on the left. No gross adrenal mass is identified bilaterally. Kidneys: The kidneys are homogeneous in attenuation on these limited noncontrast images. There is no evidence for gross renal mass, calculus or hydronephrosis bilaterally. There is again evidence for bilateral renal cysts with a few cysts demonstrate increased attenuation characteristic of hemorrhagic cysts. Bowel: The patient is again status post transverse colostomy on the left. The bowel loops are otherwise normally placed within the abdomen and pelvis without evidence for dilatation or obstruction. There is fecal material seen within the colon. There are no inflammatory changes present. There is no evidence for free air. Surgical clips are present previous appendectomy. Bladder: There is no evidence for focal bladder wall thickening, calculus or diverticulum. : There is no evidence for pelvic mass or adenopathy. Vasculature: There is no evidence for focal aneurysmal dilatation of the abdominal aorta. Atherosclerotic calcification is present. Osseous structures: There is no acute osseous pathology. Degenerative changes are seen throughout the lumbar spine. IMPRESSION: 1. Compared to the previous examination, the patient is again status post left sided transverse colostomy with no evidence for bowel loop dilatation or obstruction. 2. Otherwise, no acute intra-abdominal or pelvic abnormality on these limited noncontrast images. 3. Resolution of previously identified retroperitoneal hematoma on the left. 4. Additional nonacute findings are delineated above. ACT 112: Negative or not required by law. Electronically signed by: Tigre Vasquez M.D. 09/14/2021 2:45 PM Discharge Plan Visit Data Chief Complaint: Abdominal Pain Stated Complaint: AB PAIN ED Provider: Wilner Francois Discharge Problem: Atrial fibrillation with rapid ventricular response, CML (chronic myeloid leukemia), Diffuse abdominal pain, Leukocytosis, Thrombocytosis Patient Disposition: Admitted As Inpatient Condition: Fair Forms Stand Alone Forms: [email or web address] Prescriptions Prescriptions: No Action duloxetine 20 mg capsule,delayed release(DR/EC) 40 mg PO QAM Qty: 60 RF: 11 budesonide-formoterol [Symbicort] 160-4.5 mcg/actuation HFA aerosol inhaler 2 puff INHALATION BID Qty: 10.2 RF: 5 montelukast 10 mg tablet 10 mg PO HS Qty: 30 RF: 5 metoprolol succinate 50 mg tablet extended release 24 hr 12.5 mg PO BID RF: 0 Incruse Ellipta 62.5 mcg/actuation blister with device 1 inh inhalation DAILY RF: 0 torsemide 20 mg tablet 40 mg PO DAILY Qty: 120 RF: 1 levothyroxine 50 mcg tablet 50 mcg PO DAILY Qty: 90 RF: 3 omeprazole 20 mg capsule,delayed release(DR/EC) 20 mg PO DAILY Qty: 90 RF: 3 atorvastatin 20 mg tablet 20 mg PO HS Qty: 90 RF: 3 promethazine 25 mg tablet 25 mg PO TID PRN (Reason: nausea and vomiting) Qty: 90 RF: 5 midodrine 10 mg tablet 10 mg PO TID Qty: 90 RF: 3 aspirin [Adult Aspirin Regimen] 81 mg tablet,delayed release (DR/EC) 81 mg PO DAILY RF: 0 tramadol 50 mg tablet 100 mg PO Q8 PRN (Reason: lower abdominal pain) Qty: 180 RF: 1 cholecalciferol (vitamin D3) 25 mcg (1,000 unit) Tablet 25 mcg PO BID RF: 0 acetaminophen 325 mg Tablet 650 mg PO Q4 PRN (Reason: Pain, Mild) RF: 0 sodium chloride [Saline Nasal] 0.65 % Aerosol,[place] 1 spray INTRANASAL TID RF: 0 Referrals Referrals: Ok Galo MD [Primary Care Provider] -
[2021-09-14] MEDS: HYDROmorphone INJ 0.5 MG/0.5 ML SYR IV PRN ×2 (14:09→15:31)
[2021-09-14 14:10] LABS: INR 1.2 (0.9-1.1); Partial Thromboplastin Ratio 1.1; Partial Thromboplastin Time 29.4 Seconds (21.0-31.0); Prothrombin Time 11.8 Seconds (9.0-12.0)
[2021-09-14 14:17] LABS: Albumin Level 2.1 gm/dl (3.4-5.0); BUN Creatinine Ratio 30.6 (10-20); Blood Urea Nitrogen 55 mg/dl (7-18); Calcium 9.2 mg/dl (8.5-10.1); Carbon Dioxide 27 mmol/L (21-32); Chloride 99 mmol/L (98-107); Est GFR (African American) 32.9 ml/min; Est GFR (Non-African American) 28.4 ml/min; Glucose 110 mg/dl (70-99); Lipase 70 U/L (73-393); Magnesium 1.8 mg/dl (1.8-2.4); Potassium 3.6 mmol/L (3.5-5.1); Sodium 137 mmol/L (136-145)
[2021-09-14 14:26] LABS: Hematocrit (blood only) 30.2 % (37-47); Hemoglobin 9.9 g/dL (12.0-16.0); Mean Corpuscular Hemoglobin 27.5 pg (25-34); Mean Corpuscular Hgb Conc 32.8 g/dL (32-36); Mean Corpuscular Volume 83.9 fL (80-100); Mean Platelet Volume 11.3 fL (7.4-10.4); Nucleated RBC # (auto) 0.41 K/uL (0-0); Nucleated RBC % (auto) 0.4 %; Platelet Count 1121 K/uL (130-400); RDW Coefficient of Variation 18.7 % (11.5-14.5); RDW Standard Deviation 55.6 fL (36.4-46.3); White Blood Count 95.28 K/uL (4.8-10.8)
[2021-09-14 14:28] LABS: ALC (manual) 3.62 K/uL (1.2-3.4); ANC (manual) 74.89 K/uL (1.4-6.5); Alanine Aminotransferase 17 U/L (12-78); Albumin Globulin Ratio 0.5 (0.9-2); Alkaline Phosphatase 144 U/L (45-117); Aspartate Aminotransferase 25 U/L (15-37); Basophils # (manual) 8.96 K/uL (0-0.2); Basophils % (manual) 9.4 %; Bilirubin,Total 0.6 mg/dl (0.2-1); Eosinophils # (manual) 0.57 K/uL (0-0.5); Eosinophils % (manual) 0.6 %; Globulin 4.6 gm/dl (2.5-4.0); Lymphocytes # (manual) 3.62 K/uL (1.2-3.4); Lymphocytes % (manual) 3.8 %; Monocytes # (manual) 1.81 K/uL (0.11-0.59); Monocytes % (manual) 1.9 %; Myelocytes # (manual) 5.43 K/uL (0-0); Myelocytes % (manual) 5.7 %; Neutrophils # (manual) 74.89 K/uL (1.4-6.5); Neutrophils % (manual) 78.6 %; Polychromasia 1+; Total Protein 6.7 gm/dl (6.4-8.2); Troponin I < 0.015 ng/ml (0-0.045)
--- NOTE | 2021-09-14 14:32 | XRay Report ---
XR chest 1V portable CLINICAL HISTORY: abd pain. Evaluate the lung bases COMPARISON STUDY: 05/28/2021 TECHNIQUE: 1 view of the chest FINDINGS: Single frontal view of the chest demonstrates the cardiomediastinal silhouette to be within normal li mits. There is a decreased inspiratory effort with elevation of the hemidiaphragms and crowding of th e bronchovascular markings at the lung bases and centrally. The lungs are clear of alveolar opacities . There is no evidence for pleural effusion. There is no evidence for vascular congestion. There is n o acute osseous pathology. IMPRESSION: There is a decreased inspiratory effort with otherwise no acute chest disease. ACT 112: Negative or not required by law. Electronically signed by: Tigre Vasquez M.D. 09/14/2021 2:31 PM
--- NOTE | 2021-09-14 14:46 | CT Scan Report ---
CT abd pelvis wo con CLINICAL HISTORY: Abdominal pain. Evaluate for bowel obstruction. COMPARISON STUDY: 05/29/2021 CT DOSE: 817.32 mGy.cm TECHNIQUE: Standard CT of the Abdomen and Pelvis was performed without IV contrast. The patient did not receive oral contrast. A dose lowering technique was utilized adhering to the principles of RICK Thurman. FINDINGS: Lung base: Compared to the previous examination, there is small residual right pleural effusion and minimal pleural thickening on the left. Abdominal cavity: There is no evidence for abdominal mass, adenopathy or ascites. Compared to previou s examination, there has been interval resolution of previously identified retroperitoneal hematoma o n the left. Left iliopsoas muscle is now within normal limits. Liver: The liver is homogeneous in attenuation on these limited noncontrast images.. Spleen: The spleen is homogeneous in attenuation on these limited noncontrast images. Pancreas: The pancreas is homogeneous in attenuation on these limited noncontrast images. Small left pancreatic body cyst is again seen and unchanged. It is not well imaged on this noncontrast study. Gall Bladder: Surgical clips are again seen from previous cholecystectomy. Adrenal glands: Small subcentimeter adrenal nodule is again seen on the left. No gross adrenal mass i s identified bilaterally. Kidneys: The kidneys are homogeneous in attenuation on these limited noncontrast images. There is no evidence for gross renal mass, calculus or hydronephrosis bilaterally. There is again evidence for bi lateral renal cysts with a few cysts demonstrate increased attenuation characteristic of hemorrhagic cysts. Bowel: The patient is again status post transverse colostomy on the left. The bowel loops are otherwi se normally placed within the abdomen and pelvis without evidence for dilatation or obstruction. Ther e is fecal material seen within the colon. There are no inflammatory changes present. There is no dat dence for free air. Surgical clips are present previous appendectomy. Bladder: There is no evidence for focal bladder wall thickening, calculus or diverticulum. : There is no evidence for pelvic mass or adenopathy. Vasculature: There is no evidence for focal aneurysmal dilatation of the abdominal aorta. Atheroscler otic calcification is present. Osseous structures: There is no acute osseous pathology. Degenerative changes are seen throughout the lumbar spine. IMPRESSION: 1. Compared to the previous examination, the patient is again status post left sided transverse colos monica with no evidence for bowel loop dilatation or obstruction. 2. Otherwise, no acute intra-abdominal or pelvic abnormality on these limited noncontrast images. 3. Resolution of previously identified retroperitoneal hematoma on the left. 4. Additional nonacute findings are delineated above. ACT 112: Negative or not required by law. Electronically signed by: Tigre Vasquez M.D. 09/14/2021 2:45 PM
[2021-09-14] MEDS ORDERED: CLINDAMYCIN 900 MG in DEXTROSE 5% 50 ML IV ONE (15:15)
[2021-09-14] MEDS ORDERED: SODIUM CHLORIDE 0.9% 1000ML 500 ML IV ONE (15:15)
--- NOTE | 2021-09-14 16:10 | History & Physical Report ---
Date of Service September 14, 2021 Assessment & Plan (1) Diffuse abdominal pain: Plan: Suspect from constipation. MiraLAX 17g TID. Acetaminophen 1g TID for pain. Will continue her usual tramadol but minimize opiates as will just make constipation worse. Clindamycin given in the ER but no indication of infective etiology to suggest continued need for antibiotics (2) Atrial fibrillation with rapid ventricular response: Plan: Suspect due to not taking her usual medications this morning in addition to pain Also recently taken off amiodarone in June Continue metoprolol succinate 12.5mg PO BID Not on anticoagulation due to recent spontaneous retroperitoneal bleed (3) Chronic heart failure with preserved ejection fraction: Plan: Patient reports her weight is up 15 lb from her dry weight although does not appear hypervolemic on exam and weight measured here appears to be down from May. IV fluids given in the ER due to tachycardia. Will continue her usual torsemide 40mg PO starting tomorrow. (4) Leukocytosis: Plan: Suspect from CML. Does not appear to be blast crisis from CBC differential however will get peripheral smear in AM. (5) CML (chronic myeloid leukemia): Plan: As above. On no current treatment for this. Intolerant to multiple treatment in the past per prior heme notes Follow up with hematology as outpatient No source of infection at this time, will d/c further antibiotics (6) Hypothyroidism: Plan: TSH WNL Continue levothyroxine 50 mcg PO daily (7) Chronic kidney disease, stage 3 (moderate): Plan: At baseline. Repeat BMP in AM (8) COPD (chronic obstructive pulmonary disease): Plan: No acute exacerbation Continue Symbicort and Anoro Ellipta or hospital formulary equivalent (9) GERD (gastroesophageal reflux disease): Plan: Switch omeprazole to pantoprazole per hospital formulary (10) Hypotension: Plan: Continue her usual midodrine 10mg TID Plan: VTE Prophylaxis - no chemical prophylaxis due to prior retroperitoneal bleed Diet - clear, can likely advance diet as pain/constipation improved Disposition - admit to med/tele due to a. fib RVR Admission and Anticipated Discharge Date Admission Date: September 14, 2021 History of Present Illness Chief Complaint: Abdominal pain Primary Care Provider: Ok Galo MD Marycarmen Schilling is a 66 year old medically complex female who presents to the ER with 2-3 days of abdominal pain and rectal bleeding. She has an end colostomy after perforation in April. More recently she had a spontaneous retroperitoneal hematoma In May/June requiring a prolonged [place] [facility] while on Xarelto and was advised not to restart on this. She reports nothing has come out of her colostomy since yesterday. Taking docusate since yesterday at noon. No nausea or vomiting. In the ER CT A/P showed no acute infectious pathology or bowel obstruction. She has a history of CML and WBC and Plt are significant raised but this is mostly neutrophils rather than blast cells. ER Physician discussed case with GI and recommended MiraLAX for the constipation noted on CT but need for transfer at this time. She was referred to medicine for admission and ongoing management of this. Allergies Allergy/AdvReac Type Severity Reaction Status Date / Time diltiazem Allergy Severe SHORTNESS Verified 08/22/21 09:30 OF BREATH AND SWELLING OF HANDS AND FACE nut - unspecified Allergy Severe Wheezing Verified 08/22/21 09:30 peanut Allergy Severe Wheezing Verified 08/22/21 09:30 Yeast Allergy Severe Wheezing Verified 08/22/21 09:30 Penicillins Allergy Intermediate WELTS IN Verified 08/22/21 09:30 MOUTH AND SPREAD TO BODY adhesive Allergy Mild BLISTERS Verified 08/22/21 09:30 latex Allergy Mild RASH Verified 08/22/21 09:30 indomethacin Allergy Unknown per pulm Verified 08/22/21 09:30 note tree and shrub pollen Allergy Unknown ELM Verified 08/22/21 09:30 TREE-RASH BLISYERS HANDS ARMS FEET allopurinol Allergy Unknown Unverified 08/22/21 09:30 febuxostat [From Uloric] Allergy Unknown Verified 08/22/21 09:30 oxycodone Allergy Unknown Verified 08/22/21 09:30 codeine AdvReac Mild N&V&GI PAIN Verified 08/22/21 09:30 paroxetine AdvReac Mild GI SYMPTOMS Verified 08/22/21 09:30 varenicline AdvReac Mild GI Verified 08/22/21 09:30 SYMPTOMS,HALLUCINATIONS linaclotide [From Linzess] AdvReac Unknown CAUSED Verified 08/22/21 09:30 ASTHMA ATTACK Home Medications Medication Instructions Recorded Confirmed Type duloxetine 20 mg capsule,delayed 40 mg PO QAM #60 cap 09/10/20 09/14/21 Rx release budesonide-formoterol HFA 160 2 puff INHALATION BID #10.2 gm 11/15/20 09/14/21 Rx mcg-4.5 mcg/actuation aerosol inhaler (Symbicort) montelukast 10 mg tablet 10 mg PO HS #30 tab 04/03/21 09/14/21 Rx acetaminophen 325 mg tablet 650 mg PO Q4 PRN 05/28/21 09/14/21 History cholecalciferol (vitamin D3) 25 25 mcg PO BID 05/28/21 09/14/21 History mcg (1,000 unit) tablet sodium chloride 0.65 % nasal spray 1 spray INTRANASAL TID 05/28/21 09/14/21 History aerosol (Saline Nasal) metoprolol succinate 50 mg 12.5 mg PO BID tab 08/13/21 09/14/21 History tablet,extended release 24 hr umeclidinium 62.5 mcg/actuation 1 inh INHALATION DAILY 08/13/21 09/14/21 History blister powder for inhalation (Incruse Ellipta) aspirin 81 mg tablet,delayed 81 mg PO DAILY 08/22/21 09/14/21 History release (Adult Aspirin Regimen) atorvastatin 20 mg tablet 20 mg PO HS #90 tab 08/22/21 09/14/21 Rx levothyroxine 50 mcg tablet 50 mcg PO DAILY #90 tab 08/22/21 09/14/21 Rx midodrine 10 mg tablet 10 mg PO TID #90 tab 08/22/21 09/14/21 Rx omeprazole 20 mg capsule,delayed 20 mg PO DAILY #90 cap 08/22/21 09/14/21 Rx release promethazine 25 mg tablet 25 mg PO TID PRN #90 tab 08/22/21 09/14/21 Rx torsemide 20 mg tablet 40 mg PO DAILY #120 tab 08/22/21 09/14/21 Rx tramadol 50 mg tablet 100 mg PO Q8 PRN #180 tab 08/22/21 09/14/21 Rx Past Med/Surg History Medical History Anxiety Asthma Atrial fibrillation on xarelto---follows with Dr. 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 CML (chronic myelocytic leukemia) F/U DR PATELATILIO [facility] Depression Diabetes mellitus, type 2 DIET MANAGED GERD (gastroesophageal reflux disease) Hyperlipidemia Hypertension Hypothyroidism Iron deficiency anemia Kidney stones HX Lung cancer, lower lobe 2017--left--sx, chemo On anticoagulant therapy On home oxygen therapy 2L n/c continuous Sleep apnea NO LONGER USING CPAP-USES ONLY OXYGEN CONTINUOUSLY SOBOE (shortness of breath on exertion) Stress incontinence in female Temporomandibular joint disorder PAIN BILAT-HAS NEVER LOCKED Surgical History History of appendectomy History of bronchoscopy 2016 History of cardiac cath 11/2017 @ [facility]--no stents History of cholecystectomy History of colonoscopy History of dilatation and curettage History of esophagogastroduodenoscopy (EGD) History of lobectomy of lung lower left lobe 2016 @ [facility] History of open reduction and internal fixation (ORIF) procedure R upper thigh x2--pins/rods in place History of tooth extraction all teeth History of total left knee replacement (TKR) History of total right knee replacement (TKR) Family History Sister Family history of reaction to anesthesia "had an allergic reaction", not sure what happened Arthritis Family history of diabetes mellitus Heart disease Hypertension Mother Family history of diabetes mellitus Myocardial infarction Heart disease Hypertension age [address] Grandmother Family history of diabetes mellitus maternal Family/Other Family history of diabetes mellitus maternal uncle/maternal aunts Colorectal cancer Family/Other Family hx of colon cancer paternal cousin Father age 91 Denies family history of Crohn's disease Ulcerative colitis Social History Smoking Status: Former smoker Tobacco Type: Cigarettes Age Started Using Tobacco: 8; Age Quit Using Tobacco: 62; Cigarettes Per Day: 2pks; Second Hand Exposure: No; Hx Alcohol Use: No Hx Substance Use: No Preferred Language: Cymraes Communication Ability: Effective Visual Impairment: No Limitations Hearing Ability: Normal Feed Grinder Required: No Beliefs That Will Affect Care: None marital status: / Current Living Situation: Alone Current Living Situation Comment: 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 Feels Safe at Home: Yes Safety Concerns: Feels Safe At This Time Childhood Exposure to Second-Hand Smoke: No during the past year weight has: remained stable Dental Care, Regularly: No Physical Activity Frequency: Does not Exercise Seatbelt Use: always Sunscreen Use: No Assistive Devices: Denture - Upper, Denture - Lower and Glasses Review of Systems Review of Systems: All systems reviewed & are unremarkable except as noted in HPI & below Weight gain of 15lb per patient Physical Exam Constitutional: well developed and well nourished; no acute distress Eyes: + anicteric sclerae; normal pupil size ENMT: external ear and nose normal, oropharynx normal Neck: trachea midline, no thyromegaly Respiratory: normal respiratory effort, lungs clear to auscultation Cardiovascular: Rate/Rhythm: + tachycardic and + irregularly irregular Heart Sounds: no murmur Vessels: no JVD Extremities: normal capillary refill and + pedal edema (1+ ankles b/l equal); no calf tenderness Gastrointestinal (Abdomen): Inspection/Auscultation: + hypoactive bowel sounds; abdomen not distended Percussion/Palpation: + abdomen tender (generalized) and abdomen soft; no guarding and abdomen not rigid colostomy protruding but otherwise appears healthy and pink Musculoskeletal: no cyanosis or clubbing, extremities motor strength 5/5 Skin: no rashes, warm and dry Neurologic: moves all extremities and awake; not confused Psychiatric: A+Ox3, euthymic affect Genitourinary: no CVA tenderness Results & Data Results & Data ([facility]) Vital Signs (Past 12 Hours) Vital Signs Temp Pulse Resp BP Pulse Ox 09/14/21 14:00 124 H 15 108/55 L 100 09/14/21 13:50 128 H 20 98 09/14/21 13:49 99 09/14/21 13:40 138 H 21 09/14/21 13:38 135 H 23 09/14/21 12:37 36.7 C 140 H 20 101/63 97 Laboratory Results Abnormal lab results 09/14/21 09/14/21 09/14/21 Range/Units 13:55 13:55 13:55 WBC 95.28 H* (4.8-10.8) K/uL RBC 3.60 L (4.2-5.4) M/uL Hgb 9.9 L (12.0-16.0) g/dL Hct 30.2 L (37-47) % RDW Std Deviation 55.6 H (36.4-46.3) fL RDW Coeff of Bruce 18.7 H (11.5-14.5) % Plt Count 1121 H* (130-400) K/uL MPV 11.3 H (7.4-10.4) fL Absolute Nucleated RBC 0.41 H (0-0) K/uL Neutrophils # (Manual) 74.89 H (1.4-6.5) K/uL Total Absolute Neuts 74.89 H (1.4-6.5) K/uL Lymphocytes # (Manual) 3.62 H (1.2-3.4) K/uL Total Abs Lymphocytes 3.62 H (1.2-3.4) K/uL Monocytes # (Manual) 1.81 H (0.11-0.59) K/uL Eosinophils # (Manual) 0.57 H (0-0.5) K/uL Basophils # (Manual) 8.96 H (0-0.2) K/uL Myelocytes # (Manual) 5.43 H (0-0) K/uL INR 1.2 H (0.9-1.1) BUN 55 H (7-18) mg/dl Creatinine 1.80 H (0.6-1.2) mg/dl BUN/Creatinine Ratio 30.6 H (10-20) Glucose 110 H (70-99) mg/dl Alkaline Phosphatase 144 H (45-117) U/L Albumin 2.1 L (3.4-5.0) gm/dl Globulin 4.6 H (2.5-4.0) gm/dl Albumin/Globulin Ratio 0.5 L (0.9-2) Lipase 70 L (73-393) U/L Diagnostic Findings XR chest 1V portable CLINICAL HISTORY: abd pain. Evaluate the lung bases COMPARISON STUDY: 05/28/2021 TECHNIQUE: 1 view of the chest FINDINGS: Single frontal view of the chest demonstrates the cardiomediastinal silhouette to be within normal limits. There is a decreased inspiratory effort with elevation of the hemidiaphragms and crowding of the bronchovascular markings at the lung bases and centrally. The lungs are clear of alveolar opacities. There is no evidence for pleural effusion. There is no evidence for vascular congestion. There is no acute osseous pathology. IMPRESSION: There is a decreased inspiratory effort with otherwise no acute chest disease. CT abd pelvis wo con CLINICAL HISTORY: Abdominal pain. Evaluate for bowel obstruction. COMPARISON STUDY: 05/29/2021 CT DOSE: 817.32 mGy.cm TECHNIQUE: Standard CT of the Abdomen and Pelvis was performed without IV contrast. The patient did not receive oral contrast. A dose lowering technique was utilized adhering to the principles of ALARA. FINDINGS: Lung base: Compared to the previous examination, there is small residual right pleural effusion and minimal pleural thickening on the left. Abdominal cavity: There is no evidence for abdominal mass, adenopathy or ascites. Compared to previous examination, there has been interval resolution of previously identified retroperitoneal hematoma on the left. Left iliopsoas muscle is now within normal limits. Liver: The liver is homogeneous in attenuation on these limited noncontrast images.. Spleen: The spleen is homogeneous in attenuation on these limited noncontrast images. Pancreas: The pancreas is homogeneous in attenuation on these limited noncontrast images. Small left pancreatic body cyst is again seen and unchanged. It is not well imaged on this noncontrast study. Gall Bladder: Surgical clips are again seen from previous cholecystectomy. Adrenal glands: Small subcentimeter adrenal nodule is again seen on the left. No gross adrenal mass is identified bilaterally. Kidneys: The kidneys are homogeneous in attenuation on these limited noncontrast images. There is no evidence for gross renal mass, calculus or hydronephrosis bilaterally. There is again evidence for bilateral renal cysts with a few cysts demonstrate increased attenuation characteristic of hemorrhagic cysts. Bowel: The patient is again status post transverse colostomy on the left. The bowel loops are otherwise normally placed within the abdomen and pelvis without evidence for dilatation or obstruction. There is fecal material seen within the colon. There are no inflammatory changes present. There is no evidence for free air. Surgical clips are present previous appendectomy. Bladder: There is no evidence for focal bladder wall thickening, calculus or diverticulum. : There is no evidence for pelvic mass or adenopathy. Vasculature: There is no evidence for focal aneurysmal dilatation of the abdominal aorta. Atherosclerotic calcification is present. Osseous structures: There is no acute osseous pathology. Degenerative changes are seen throughout the lumbar spine. IMPRESSION: 1. Compared to the previous examination, the patient is again status post left sided transverse colostomy with no evidence for bowel loop dilatation or obstruction. 2. Otherwise, no acute intra-abdominal or pelvic abnormality on these limited noncontrast images. 3. Resolution of previously identified retroperitoneal hematoma on the left. 4. Additional nonacute findings are delineated above. Medications Administered ER Medications Given: Ondansetron 4mg IV Dilaudid 0.5mg x2 NSS 1.5L bolus Metoprolol 5mg IV x2 Clindamycin 900mg IV ECG Rate (beats per minute): 132 Rhythm: atrial fibrillation Findings: + nonspecific-ST abn and + PVC Comparison ECG Date: from (May 28, 2021) Change: no significant change Code Status & VTE Plan Code Status DNR/DNI VTE Prophylaxis Plan VTE Prophylaxis will be ordered: No Reason for no VTE drug order: Contraindicated (prior spontanous retroperitoneal bleed) PG Care Time/CCT Total # of Minutes Spent Total Time Spent with Patient: Total time spent is greater than 50% in coordination of care (as documented) at patient's floor/unit and/or counseling patient: Coding Level of Care Code 28623 Initial Inpt Care Lvl 3 Diagnoses Atrial fibrillation with rapid ventricular response I48.91 CML (chronic myeloid leukemia) C92.10 Diffuse abdominal pain R10.84 Leukocytosis D72.829 Leukocytosis type: unspecified Hypothyroidism E03.9 Chronic kidney disease, stage 3 (moderate) N18.3 COPD (chronic obstructive pulmonary disease) J43.9 COPD type: emphysema Emphysema type: unspecified GERD (gastroesophageal reflux disease) K21.9 Chronic heart failure with preserved ejection fraction I50.32 Hypotension I95.9 (1) Leukocytosis Leukocytosis type: unspecified Qualified Code(s): D72.829 - Elevated white blood cell count, unspecified (2) COPD (chronic obstructive pulmonary disease) COPD type: emphysema Emphysema type: unspecified Qualified Code(s): J43.9 - Emphysema, unspecified
[2021-09-14] MEDS ORDERED: POLYETHYLENE (MIRALAX) 17 GM PACK PO STA (16:27)
[2021-09-14] MEDS ORDERED: ONDANSETRON INJ 2 MG/ML 2 ML VIAL IV PRN (18:33)
[2021-09-14] MEDS ORDERED: POLYETHYLENE (MIRALAX) 17 GM PACK PO PRN (18:33)
[2021-09-14] MEDS ORDERED: PROMETHAZINE HCL 25 MG TAB PO PRN (18:33)
[2021-09-14] MEDS ORDERED: ACETAMINOPHEN 325 MG TAB PO PRN ×2 (18:33)
[2021-09-14] MEDS ORDERED: POLYETHYLENE (MIRALAX) 17 GM PACK PO SCH (21:00)
[2021-09-14] MEDS: MONTELUKAST SODIUM 10 MG TABLET PO SCH (21:59)
[2021-09-14] MEDS: ACETAMINOPHEN 500 MG TAB PO SCH (21:59)
[2021-09-14] MEDS: CHOLECALCIFEROL 1,000 UNITS 25 MCG TAB PO SCH (22:00)
[2021-09-14] MEDS: SODIUM CHLORIDE 0.65% NA SOLN 45 ML (OCEAN) NAE SCH (22:01)
[2021-09-14] MEDS: ATORVASTATIN 20 MG TAB PO SCH (22:01)
[2021-09-14] MEDS: METOPROLOL SUCC 25MG EXT REL TAB PO SCH (22:02)
[2021-09-14] MEDS: MIDODRINE HCL 10 MG TAB PO SCH (22:52)
[2021-09-15] MEDS: traMADol HCL 50 MG TABLET PO PRN ×2 (03:14→15:59)
[2021-09-15] MEDS: LEVOTHYROXINE SODIUM 50 MCG TABLET PO SCH (06:09)
[2021-09-15 09:21] LABS: Hematocrit (blood only) 27.8 % (37-47); Hemoglobin 8.7 g/dL (12.0-16.0); Mean Corpuscular Hemoglobin 26.4 pg (25-34); Mean Corpuscular Hgb Conc 31.3 g/dL (32-36); Mean Corpuscular Volume 84.2 fL (80-100); Mean Platelet Volume 11.4 fL (7.4-10.4); Nucleated RBC # (auto) 0.23 K/uL (0-0); Nucleated RBC % (auto) 0.3 %; Platelet Count 1136 K/uL (130-400); RDW Coefficient of Variation 18.9 % (11.5-14.5); White Blood Count 82.68 K/uL (4.8-10.8)
[2021-09-15] MEDS: UMECLIDINIUM BROMIDE 62.5MCG/BLISTER 7 PUFFS/INHALER INH SCH (09:21)
[2021-09-15] MEDS: TORSEMIDE 20 MG TAB PO SCH (09:21)
[2021-09-15] MEDS: MIDODRINE HCL 10 MG TAB PO SCH ×3 (09:22→17:36)
[2021-09-15] MEDS: METOPROLOL SUCC 25MG EXT REL TAB PO SCH ×2 (09:22→20:22)
[2021-09-15] MEDS: SODIUM CHLORIDE 0.65% NA SOLN 45 ML (OCEAN) NAE SCH ×3 (09:22→20:19)
[2021-09-15] MEDS: PANTOprazole 40 MG TAB PO SCH (09:22)
[2021-09-15] MEDS: DULoxetine HCL 20 MG CAP PO SCH (09:24)
[2021-09-15] MEDS: CHOLECALCIFEROL 1,000 UNITS 25 MCG TAB PO SCH ×2 (09:24→20:21)
[2021-09-15] MEDS: FLUTICASONE/VILANTEROL 100/25MCG 14 PUFFS/INHALER INH SCH (09:24)
[2021-09-15] MEDS: POLYETHYLENE (MIRALAX) 17 GM PACK PO SCH ×4 (09:25→20:34)
[2021-09-15] MEDS: ACETAMINOPHEN 500 MG TAB PO SCH ×3 (09:25→20:22)
[2021-09-15] MEDS: ASPIRIN 81 MG ECTAB PO SCH (09:25)
[2021-09-15 09:43] LABS: BUN Creatinine Ratio 31.6 (10-20); Calcium 8.9 mg/dl (8.5-10.1); Creatinine Clr Calc Pharmacy 35.8 ml/min; Est GFR (African American) 36.1 ml/min; Est GFR (Non-African American) 31.1 ml/min; Potassium 3.4 mmol/L (3.5-5.1)
[2021-09-15 09:49] LABS: ALC (manual) 3.56 K/uL (1.2-3.4); Basophils # (manual) 3.56 K/uL (0-0.2); Basophils % (manual) 4.3 %; Eosinophils # (manual) 0.74 K/uL (0-0.5); Eosinophils % (manual) 0.9 %; Lymphocytes # (manual) 3.56 K/uL (1.2-3.4); Lymphocytes % (manual) 4.3 %; Metamyelocytes # (manual) 1.41 K/uL (0-0); Metamyelocytes % (manual) 1.7 %; Monocytes # (manual) 1.41 K/uL (0.11-0.59); Monocytes % (manual) 1.7 %; Myelocytes # (manual) 2.81 K/uL (0-0); Myelocytes % (manual) 3.4 %; Neutrophils % (manual) 83.7 %
[2021-09-15] MEDS ORDERED: SODIUM CHLORIDE 0.9% 1000ML 1,000 ML IV SCH (10:00)
--- NOTE | 2021-09-15 10:04 | Hospitalist Progress Note ---
Date of Service September 15, 2021 Assessment & Plan (1) Diffuse abdominal pain: Plan: Much improved was likely due to constipation patient had multiple output from her colostomy after miralax and says her pain is better Will continue miralax CT abdomen and Pelvis did not show any acute pathology (2) Atrial fibrillation with rapid ventricular response: Plan: Currently rate controlled Continue metoprolol succinate 12.5mg PO BID and Amiodarone Not on anticoagulation due to recent spontaneous retroperitoneal bleed (3) Chronic heart failure with preserved ejection fraction: Plan: Patient appears compensated Continue home medications Monitor I/O, daily weight (4) Leukocytosis: Plan: Suspect from CML. Does not appear to be blast crisis from CBC differential however will get peripheral smear in AM. (5) CML (chronic myeloid leukemia): Plan: As above. On no current treatment for this. Intolerant to multiple treatment in the past per prior heme notes Follow up with hematology as outpatient No source of infection at this time, will d/c further antibiotics (6) Hypothyroidism: Plan: TSH WNL Continue levothyroxine 50 mcg PO daily (7) Chronic kidney disease, stage 3 (moderate): Plan: Cr improving, 1.67 today, close to baseline (8) COPD (chronic obstructive pulmonary disease): Plan: No acute exacerbation Continue Symbicort and Anoro Ellipta or hospital formulary equivalent (9) GERD (gastroesophageal reflux disease): Plan: Switch omeprazole to pantoprazole per hospital formulary (10) Hypotension: Plan: Continue her usual midodrine 10mg TID Plan: VTE Prophylaxis - no chemical prophylaxis due to prior retroperitoneal bleed Diet - clear, can likely advance diet as pain/constipation improved Disposition - admit to med/tele due to a. fib RVR Admission and Anticipated Discharge Date Admission Date: September 14, 2021 patient still somewhat weak, may be ready for discharge tomorrow morning Subjective Patient seen and examined today, says she is still tired Review of Systems Review of Systems: All systems reviewed are negative, apart from the ones contained in the history. Physical Exam Physical Exam: The patient is awake, alert and oriented 3, well developed and well nourished, normocephalic and atraumatic, lying in bed and in no acute distress. HEENT--PERRL, EOMI, mucous membranes and oropharynx mildly dry Neck--supple. No JVD. No bruits. Thyroid normal, trachea midline, no adenopathy. Heart--normal S1 and S2. No murmurs, rubs or gallops. Lungs--clear bilaterally, no respiratory distress, no accessory muscle use. Abdomen--normal bowel sounds and soft. Mild epigastric and left sided abdominal pain, colostomy bag in situ Extremities--no cyanosis or clubbing. No edema. Dermatologic--normal skin turgor, normal color, no abnormal lymph nodes, no rash. Neurologic--cranial nerves II through XII grossly intact. Rheumatologic--normal range of motion. Psychiatric--normal affect. Results & Data Results & Data ([facility]) Vital Signs (Past 12 Hours) Vital Signs Temp Pulse Pulse Resp BP Pulse Ox 09/15/21 07:13 98.6 F 118 H 18 103/66 95 09/15/21 03:24 97.5 F L 104 H 18 109/58 L 98 09/15/21 02:39 109 H 09/14/21 23:37 97.9 F 112 H 18 91/54 L 96 09/14/21 22:16 98.8 F 116 H 18 98/59 L 95 Laboratory Results Laboratory Results - last 24 hr 09/14/21 09/14/21 09/14/21 13:55 13:55 13:55 WBC 95.28 H* RBC 3.60 L Hgb 9.9 L Hct 30.2 L MCV 83.9 MCH 27.5 MCHC 32.8 RDW Std Deviation 55.6 H RDW Coeff of Bruce 18.7 H Plt Count 1121 H* MPV 11.3 H Absolute Nucleated RBC 0.41 H Nucleated RBC % (auto) 0.4 Neutrophils % (Manual) 78.6 Lymphocytes % (Manual) 3.8 Monocytes % (Manual) 1.9 Eosinophils % (Manual) 0.6 Basophils % (Manual) 9.4 Metamyelocytes % (Man) Myelocytes % (Man) 5.7 Neutrophils # (Manual) 74.89 H Total Absolute Neuts 74.89 H Lymphocytes # (Manual) 3.62 H Total Abs Lymphocytes 3.62 H Monocytes # (Manual) 1.81 H Eosinophils # (Manual) 0.57 H Basophils # (Manual) 8.96 H Metamyelocytes # (Man) Myelocytes # (Manual) 5.43 H Polychromasia 1+ Peripher Smr Path Cons PT 11.8 INR 1.2 H APTT 29.4 PTT Ratio 1.1 Sodium 137 Potassium 3.6 Chloride 99 Carbon Dioxide 27 Anion Gap 11.0 BUN 55 H Creatinine 1.80 H Est Cr Clr Drug Dosing Not Reportable Est GFR ( Amer) 32.9 Est GFR (Non-Af Amer) 28.4 BUN/Creatinine Ratio 30.6 H Glucose 110 H Lactate Calcium 9.2 Magnesium 1.8 Total Bilirubin 0.6 AST 25 ALT 17 Alkaline Phosphatase 144 H Troponin I < 0.015 Total Protein 6.7 Albumin 2.1 L Globulin 4.6 H Albumin/Globulin Ratio 0.5 L Lipase 70 L TSH 2.380 COVID-19 Eval Order SARS-CoV-2 (PCR) 09/14/21 09/14/21 09/14/21 14:37 Unknown Unknown WBC RBC Hgb Hct MCV MCH MCHC RDW Std Deviation RDW Coeff of Bruce Plt Count MPV Absolute Nucleated RBC Nucleated RBC % (auto) Neutrophils % (Manual) Lymphocytes % (Manual) Monocytes % (Manual) Eosinophils % (Manual) Basophils % (Manual) Metamyelocytes % (Man) Myelocytes % (Man) Neutrophils # (Manual) Total Absolute Neuts Lymphocytes # (Manual) Total Abs Lymphocytes Monocytes # (Manual) Eosinophils # (Manual) Basophils # (Manual) Metamyelocytes # (Man) Myelocytes # (Manual) Polychromasia Peripher Smr Path Cons PT INR APTT PTT Ratio Sodium Potassium Chloride Carbon Dioxide Anion Gap BUN Creatinine Est Cr Clr Drug Dosing Est GFR ( Amer) Est GFR (Non-Af Amer) BUN/Creatinine Ratio Glucose Lactate 1.0 Calcium Magnesium Total Bilirubin AST ALT Alkaline Phosphatase Troponin I Total Protein Albumin Globulin Albumin/Globulin Ratio Lipase TSH COVID-19 Eval Order Covid19 at [facility] SARS-CoV-2 (PCR) NEGATIVE 09/15/21 09/15/21 08:19 08:19 WBC 82.68 H* D RBC 3.30 L Hgb 8.7 L Hct 27.8 L MCV 84.2 MCH 26.4 MCHC 31.3 L RDW Std Deviation 56.0 H RDW Coeff of Bruce 18.9 H Plt Count 1136 H* MPV 11.4 H Absolute Nucleated RBC 0.23 H Nucleated RBC % (auto) 0.3 Neutrophils % (Manual) 83.7 Lymphocytes % (Manual) 4.3 Monocytes % (Manual) 1.7 Eosinophils % (Manual) 0.9 Basophils % (Manual) 4.3 Metamyelocytes % (Man) 1.7 Myelocytes % (Man) 3.4 Neutrophils # (Manual) 69.20 H Total Absolute Neuts 69.20 H Lymphocytes # (Manual) 3.56 H Total Abs Lymphocytes 3.56 H Monocytes # (Manual) 1.41 H Eosinophils # (Manual) 0.74 H Basophils # (Manual) 3.56 H Metamyelocytes # (Man) 1.41 H Myelocytes # (Manual) 2.81 H Polychromasia Peripher Smr Path Cons Pending PT INR APTT PTT Ratio Sodium 140 Potassium 3.4 L Chloride 103 Carbon Dioxide 24 Anion Gap 13.0 H BUN 53 H Creatinine 1.67 H Est Cr Clr Drug Dosing 35.8 Est GFR ( Amer) 36.1 Est GFR (Non-Af Amer) 31.1 BUN/Creatinine Ratio 31.6 H Glucose 102 H Lactate Calcium 8.9 Magnesium Total Bilirubin AST ALT Alkaline Phosphatase Troponin I Total Protein Albumin Globulin Albumin/Globulin Ratio Lipase TSH COVID-19 Eval Order SARS-CoV-2 (PCR) PG Care Time/CCT Total # of Minutes Spent Total Time Spent with Patient: Total time spent is greater than 50% in coordination of care (as documented) at patient's floor/unit and/or counseling patient: Coding Level of Care Code 70740 Subseq Hosp Care Lvl 2 Diagnoses Diffuse abdominal pain R10.84 Atrial fibrillation with rapid ventricular response I48.91 Chronic heart failure with preserved ejection fraction I50.32 Leukocytosis D72.829 Leukocytosis type: unspecified CML (chronic myeloid leukemia) C92.10 Hypothyroidism E03.9 Chronic kidney disease, stage 3 (moderate) N18.3 COPD (chronic obstructive pulmonary disease) J43.9 COPD type: emphysema Emphysema type: unspecified GERD (gastroesophageal reflux disease) K21.9 Hypotension I95.9 (1) Leukocytosis Leukocytosis type: unspecified Qualified Code(s): D72.829 - Elevated white blood cell count, unspecified (2) COPD (chronic obstructive pulmonary disease) COPD type: emphysema Emphysema type: unspecified Qualified Code(s): J43.9 - Emphysema, unspecified
[2021-09-15] MEDS: MONTELUKAST SODIUM 10 MG TABLET PO SCH (20:20)
[2021-09-15] MEDS: ATORVASTATIN 20 MG TAB PO SCH (20:22)
--- NOTE | 2021-09-15 23:18 | Electrocardiogram Report ---
Test Reason : Blood Pressure : / mmHG Vent. Rate : 132 BPM Atrial Rate : 131 BPM P-R Int : 000 ms QRS Dur : 086 ms QT Int : 244 ms P-R-T Axes : 000 001 170 degrees QTc Int : 361 ms Poor data quality, interpretation may be adversely affected Atrial fibrillation with rapid ventricular response with premature ventricular or aberrantly conducte d complexes Nonspecific ST and T wave abnormality Possible Inferior infarct Abnormal ECG When compared with ECG of 28-MAY-2021 20:24, Premature ventricular complexes are now Present Confirmed by Patrice Louie ([id number]) on 09/15/2021 11:17:56 PM Referred By: REFERRED SELF Confirmed By:Patrice Louie
[2021-09-16] MEDS: LEVOTHYROXINE SODIUM 50 MCG TABLET PO SCH (06:00)
[2021-09-16] MEDS: traMADol HCL 50 MG TABLET PO PRN (09:04)
[2021-09-16] MEDS: UMECLIDINIUM BROMIDE 62.5MCG/BLISTER 7 PUFFS/INHALER INH SCH (09:30)
[2021-09-16] MEDS: SODIUM CHLORIDE 0.65% NA SOLN 45 ML (OCEAN) NAE SCH ×3 (09:31→21:28)
[2021-09-16] MEDS: PANTOprazole 40 MG TAB PO SCH (09:31)
[2021-09-16] MEDS: POLYETHYLENE (MIRALAX) 17 GM PACK PO SCH ×3 (09:31→21:28)
[2021-09-16] MEDS: METOPROLOL SUCC 25MG EXT REL TAB PO SCH ×2 (09:32→21:26)
[2021-09-16] MEDS: MIDODRINE HCL 10 MG TAB PO SCH ×3 (09:32→17:16)
[2021-09-16] MEDS: DULoxetine HCL 20 MG CAP PO SCH (09:32)
[2021-09-16] MEDS: FLUTICASONE/VILANTEROL 100/25MCG 14 PUFFS/INHALER INH SCH (09:35)
[2021-09-16] MEDS: ASPIRIN 81 MG ECTAB PO SCH (09:36)
[2021-09-16] MEDS: CHOLECALCIFEROL 1,000 UNITS 25 MCG TAB PO SCH ×2 (09:36→21:26)
[2021-09-16] MEDS ORDERED: DICYCLOMINE HCL 10 MG CAP PO ONE (10:17)
--- NOTE | 2021-09-16 10:31 | Hospitalist Progress Note ---
Date of Service September 16, 2021 Assessment & Plan (1) Diffuse abdominal pain: Plan: Much improved was likely due to constipation patient had multiple output from her colostomy after miralax and says her pain is better Will continue miralax CT abdomen and Pelvis did not show any acute pathology Added bentyl. hold bumex due to low BP. consult GI . (2) Atrial fibrillation with rapid ventricular response: Plan: Currently rate controlled Continue metoprolol succinate 12.5mg PO BID and Amiodarone Not on anticoagulation due to recent spontaneous retroperitoneal bleed (3) Chronic heart failure with preserved ejection fraction: Plan: Patient appears compensated Continue home medications Monitor I/O, daily weight (4) Leukocytosis: Plan: Suspect from CML. Does not appear to be blast crisis from CBC differential however will get peripheral smear in AM. (5) CML (chronic myeloid leukemia): Plan: As above. On no current treatment for this. Intolerant to multiple treatment in the past per prior heme notes Follow up with hematology as outpatient No source of infection at this time, will d/c further antibiotics (6) Hypothyroidism: Plan: TSH WNL Continue levothyroxine 50 mcg PO daily (7) Chronic kidney disease, stage 3 (moderate): Plan: Cr improving, 1.67 today, close to baseline (8) COPD (chronic obstructive pulmonary disease): Plan: No acute exacerbation Continue Symbicort and Anoro Ellipta or hospital formulary equivalent (9) GERD (gastroesophageal reflux disease): Plan: Switch omeprazole to pantoprazole per hospital formulary (10) Hypotension: Plan: Continue her usual midodrine 10mg TID (11) Bright red rectal bleeding: Plan: On repeat visit, Patient had bleeding at ostomy site. appreciate input from GI. will obtain ct scan of abd/pelvis with po contrast. hold IV contrast due to GIOVANA. Plan: VTE Prophylaxis - no chemical prophylaxis due to prior retroperitoneal bleed Diet - clear, can likely advance diet as pain/constipation improved Disposition - admit to med/tele due to a. fib RVR Admission and Anticipated Discharge Date Admission Date: September 14, 2021 Subjective 66 yo female reports having seevre abdominal pain intermittently trhoughtout the day. She states this pain occurs eros she has the urge for a BM. She reports this morning she had a small round stool. She states this begn thursday weh she had severe bilaterl lower quadrant abdominal pain and radiated to her rectum. This was accompanied by bright red blood COMING FROM HER RECTUM. She reports no stools since she had colostomy placed a few months ago. Patient reports her pain has not improved. Review of Systems Review of Systems: All systems reviewed & are unremarkable except as noted in HPI & below Physical Exam Physical Exam: The patient is awake, alert and oriented 3, well developed and well nourished, normocephalic and atraumatic, lying in bed and in no acute distress. HEENT--PERRL, EOMI, mucous membranes and oropharynx mildly dry Neck--supple. No JVD. No bruits. Thyroid normal, trachea midline, no adenopathy. Heart--normal S1 and S2. No murmurs, rubs or gallops. Lungs--clear bilaterally, no respiratory distress, no accessory muscle use. Abdomen--normal bowel sounds and soft. abdominal pain in left upper and lower quadrant with soft palpation, no guarding. Mild pain on right LQ. colostomy bag in situ Extremities--no cyanosis or clubbing. No edema. Dermatologic--normal skin turgor, normal color, no abnormal lymph nodes, no rash. Neurologic--cranial nerves II through XII grossly intact. Rheumatologic--normal range of motion. Psychiatric--normal affect. Results & Data Results & Data ([facility]) Vital Signs (Past 12 Hours) Vital Signs Temp Pulse Pulse Resp BP Pulse Ox 09/16/21 07:18 96 H 09/16/21 07:13 36.6 C 88 18 97/61 L 97 09/16/21 04:06 36.8 C 93 H 18 91/53 L 96 09/16/21 01:16 97 H 09/16/21 00:00 36.7 C 99 H 18 102/64 97 PG Care Time/CCT Total # of Minutes Spent Total Time Spent with Patient: Total time spent is greater than 50% in coordination of care (as documented) at patient's floor/unit and/or counseling patient: Coding Level of Care Code 81949 Subseq Hosp Care Lvl 3 Diagnoses Diffuse abdominal pain R10.84 Atrial fibrillation with rapid ventricular response I48.91 Chronic heart failure with preserved ejection fraction I50.32 Leukocytosis D72.829 Leukocytosis type: unspecified CML (chronic myeloid leukemia) C92.10 Hypothyroidism E03.9 Chronic kidney disease, stage 3 (moderate) N18.3 COPD (chronic obstructive pulmonary disease) J43.9 COPD type: emphysema Emphysema type: unspecified GERD (gastroesophageal reflux disease) K21.9 Hypotension I95.9 Bright red rectal bleeding K62.5 Time Spent (min) 35 (1) Leukocytosis Leukocytosis type: unspecified Qualified Code(s): D72.829 - Elevated white blood cell count, unspecified (2) COPD (chronic obstructive pulmonary disease) COPD type: emphysema Emphysema type: unspecified Qualified Code(s): J43.9 - Emphysema, unspecified
[2021-09-16] MEDS: ACETAMINOPHEN 500 MG TAB PO SCH ×3 (10:37→21:28)
[2021-09-16] MEDS: TORSEMIDE 20 MG TAB PO SCH (10:38)
--- NOTE | 2021-09-16 11:25 | Gastrointestinal Consultation ---
Date of Consultation September 16, 2021 Assessment & Plan (1) Diffuse abdominal pain: (2) Bright red rectal bleeding: Pt is a 66 y.o. female status post colostomy after perforated diverticulitis admitted with abdominal pain, constipation and bright red blood per rectum. Suspect an element of diversion colitis. * No further bleeding noted. * Recommend follow up with surgery to discuss ostomy reversal. * If bleeding persists until then, could consider short-chain fatty acid enemas as an outpatient. * Continue bowel regimen with MiraLAX and supportive care per primary team. Thank you for allowing us to participating in the care of this patient. If you have any questions or concerns, please do not hesitate to contact us. Supervising Physician Co-Signing Physician Notes Agree with NORA Norton as above Abd: Soft, NT, Ostomy with bright red blood She denies any abdominal pain at present Recommend CT scan of the abd/pelvis with oral and IV contrast now Continue current therapy and supportive care History of Present Illness Reason for Consultation: Hematochezia Requesting Physician: Dr. Rodriguez Attending Physician: Cecilio Rodriguez History of Present Illness Patient is a 66 yo female with PMH of CML, atrial fibrillation on Xarelto, HLD, COPD with home oxygen use, GERD, CKD3, ANI, non-small cell lung cancer, osteoarthritis, DM2, and hypertension who presents from the half-way with bright blood per rectum and abdominal pain. She did have a CT a/p with findings of constipation. Dr. Shannon recommended MiraLAX to treat the abdominal pain as it was felt likely related to constipation. Since that time, the patient reports improved abdominal pain. She did have an episode of bright red blood per rectum after admission that was "a gush, like a period". This was followed by a darker stool. No further bleeding noted per rectum or via ostomy output. She is having brown fecal output for the first time, however. She is planned to have an ostomy reversal in the near future, stating "it was discussed". Allergies Allergy/AdvReac Type Severity Reaction Status Date / Time diltiazem Allergy Severe SHORTNESS Verified 08/22/21 09:30 OF BREATH AND SWELLING OF HANDS AND FACE nut - unspecified Allergy Severe Wheezing Verified 08/22/21 09:30 peanut Allergy Severe Wheezing Verified 08/22/21 09:30 Yeast Allergy Severe Wheezing Verified 08/22/21 09:30 Penicillins Allergy Intermediate WELTS IN Verified 08/22/21 09:30 MOUTH AND SPREAD TO BODY adhesive Allergy Mild BLISTERS Verified 08/22/21 09:30 latex Allergy Mild RASH Verified 08/22/21 09:30 indomethacin Allergy Unknown per pulm Verified 08/22/21 09:30 note tree and shrub pollen Allergy Unknown ELM Verified 08/22/21 09:30 TREE-RASH BLISYERS HANDS ARMS FEET allopurinol Allergy Unknown Unverified 08/22/21 09:30 febuxostat [From Uloric] Allergy Unknown Verified 08/22/21 09:30 oxycodone Allergy Unknown Verified 08/22/21 09:30 codeine AdvReac Mild N&V&GI PAIN Verified 08/22/21 09:30 paroxetine AdvReac Mild GI SYMPTOMS Verified 08/22/21 09:30 varenicline AdvReac Mild GI Verified 08/22/21 09:30 SYMPTOMS,HALLUCINATIONS linaclotide [From Linzess] AdvReac Unknown CAUSED Verified 08/22/21 09:30 ASTHMA ATTACK Home Medications Medication Instructions Recorded Confirmed Type duloxetine 20 mg capsule,delayed 40 mg PO QAM #60 cap 09/10/20 09/14/21 Rx release budesonide-formoterol HFA 160 2 puff INHALATION BID #10.2 gm 11/15/20 09/14/21 Rx mcg-4.5 mcg/actuation aerosol inhaler (Symbicort) montelukast 10 mg tablet 10 mg PO HS #30 tab 04/03/21 09/14/21 Rx acetaminophen 325 mg tablet 650 mg PO Q4 PRN 05/28/21 09/14/21 History cholecalciferol (vitamin D3) 25 25 mcg PO BID 05/28/21 09/14/21 History mcg (1,000 unit) tablet sodium chloride 0.65 % nasal spray 1 spray INTRANASAL TID 05/28/21 09/14/21 History aerosol (Saline Nasal) metoprolol succinate 50 mg 12.5 mg PO BID tab 08/13/21 09/14/21 History tablet,extended release 24 hr umeclidinium 62.5 mcg/actuation 1 inh INHALATION DAILY 08/13/21 09/14/21 History blister powder for inhalation (Incruse Ellipta) aspirin 81 mg tablet,delayed 81 mg PO DAILY 08/22/21 09/14/21 History release (Adult Aspirin Regimen) atorvastatin 20 mg tablet 20 mg PO HS #90 tab 08/22/21 09/14/21 Rx levothyroxine 50 mcg tablet 50 mcg PO DAILY #90 tab 08/22/21 09/14/21 Rx midodrine 10 mg tablet 10 mg PO TID #90 tab 08/22/21 09/14/21 Rx omeprazole 20 mg capsule,delayed 20 mg PO DAILY #90 cap 08/22/21 09/14/21 Rx release promethazine 25 mg tablet 25 mg PO TID PRN #90 tab 08/22/21 09/14/21 Rx torsemide 20 mg tablet 40 mg PO DAILY #120 tab 08/22/21 09/14/21 Rx tramadol 50 mg tablet 100 mg PO Q8 PRN #180 tab 08/22/21 09/14/21 Rx Patient History Medical History Anxiety Asthma Atrial fibrillation on xarelto---follows with Dr. 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 CML (chronic myelocytic leukemia) F/U DR PATELATILIO [facility]ER Depression Diabetes mellitus, type 2 DIET MANAGED GERD (gastroesophageal reflux disease) Hyperlipidemia Hypertension Hypothyroidism Iron deficiency anemia Kidney stones HX Lung cancer, lower lobe 2017--left--sx, chemo On anticoagulant therapy On home oxygen therapy 2L n/c continuous Sleep apnea NO LONGER USING CPAP-USES ONLY OXYGEN CONTINUOUSLY SOBOE (shortness of breath on exertion) Stress incontinence in female Temporomandibular joint disorder PAIN BILAT-HAS NEVER LOCKED Surgical History History of appendectomy History of bronchoscopy 2017 History of cardiac cath 11/2017 @ [facility]--no stents History of cholecystectomy History of colonoscopy History of dilatation and curettage History of esophagogastroduodenoscopy (EGD) History of lobectomy of lung lower left lobe 2017 @ [facility] History of open reduction and internal fixation (ORIF) procedure R upper thigh x2--pins/rods in place History of tooth extraction all teeth History of total left knee replacement (TKR) History of total right knee replacement (TKR) Family History Sister Family history of reaction to anesthesia "had an allergic reaction", not sure what happened Arthritis Family history of diabetes mellitus Heart disease Hypertension Mother Family history of diabetes mellitus Myocardial infarction Heart disease Hypertension age 63 due to [place] Grandmother Family history of diabetes mellitus maternal Family/Other Family history of diabetes mellitus maternal uncle/maternal aunts Colorectal cancer Family/Other Family hx of colon cancer paternal cousin Father age 91 Denies family history of Crohn's disease Ulcerative colitis Social History Smoking Status: Former smoker Tobacco Type: Cigarettes Age Started Using Tobacco: 8; Age Quit Using Tobacco: 62; Cigarettes Per Day: 2pks; Second Hand Exposure: No; Hx Alcohol Use: No Hx Substance Use: No Preferred Language: Czech Communication Ability: Effective Visual Impairment: No Limitations Hearing Ability: Normal Geophysical Prospector Required: No Beliefs That Will Affect Care: None marital status: / Current Living Situation: Alone Current Living Situation Comment: [facility] on aging assist current occupational status: retired Feels Safe at Home: Yes Safety Concerns: Feels Safe At This Time Childhood Exposure to Second-Hand Smoke: No during the past year weight has: remained stable Dental Care, Regularly: No Physical Activity Frequency: Does not Exercise Seatbelt Use: always Sunscreen Use: No Assistive Devices: Oxygen - Continuous Review of Systems Constitutional: no fever and no chills Gastrointestinal: as per Subjective / HPI Physical Exam Constitutional: WD/WN, vitals as above Eyes: EOM intact bilaterally Neck: normal appearance Respiratory: normal respiratory effort, lungs clear to auscultation Cardiovascular: Rate/Rhythm: regular rate and regular rhythm Gastrointestinal (Abdomen): Inspection/Auscultation: normal bowel sounds and + significant pannus (ostomy noted in LLQ with light brown stool noted.) Percussion/Palpation: abdomen soft; abdomen nontender Rectal Exam: no stool abnormal (brown stool noted in brief. No melena or jen blood noted.) Skin: no rashes, warm and dry Neurologic: moves all extremities Psychiatric: A+Ox3, euthymic affect Results & Data ([facility]) Vital Signs (Past 12 Hours) Vital Signs Temp Pulse Pulse Resp BP Pulse Ox 09/16/21 07:18 96 H 09/16/21 07:13 36.6 C 88 18 97/61 L 97 09/16/21 04:06 36.8 C 93 H 18 91/53 L 96 09/16/21 01:16 97 H 09/16/21 00:00 36.7 C 99 H 18 102/64 97 PG Care Time/CCT Total # of Minutes Spent Total Time Spent with Patient: Total time spent is greater than 50% in coordination of care (as documented) at patient's floor/unit and/or counseling patient: Coding Level of Care Code 62119 Initial Inpt Care Lvl 3 Diagnoses Diffuse abdominal pain R10.84 Bright red rectal bleeding K62.5
[2021-09-16] MEDS: DICYCLOMINE HCL 20 MG TAB PO SCH ×3 (14:10→21:27)
[2021-09-16 15:30] LABS: Hematocrit (blood only) 28.1 % (37-47); Hemoglobin 9.1 g/dL (12.0-16.0)
[2021-09-16 19:14] LABS: Hematocrit (blood only) 27.9 % (37-47); Hemoglobin 8.9 g/dL (12.0-16.0)
[2021-09-16 19:38] LABS: BUN Creatinine Ratio 23.7 (10-20); Calcium 9.1 mg/dl (8.5-10.1); Creatinine Clr Calc Pharmacy 29.2 ml/min; Est GFR (African American) 28.3 ml/min; Est GFR (Non-African American) 24.4 ml/min; Potassium 3.5 mmol/L (3.5-5.1)
--- NOTE | 2021-09-16 20:39 | CT Scan Report ---
ABDOMEN AND PELVIS CT WITH ORAL CONTRAST CT DOSE: 893.26 mGy.cm HISTORY: Prior partial colectomy with transverse colostomy Bright red blood per ostomy TECHNIQUE: Multiaxial CT images of the abdomen and pelvis were performed following the use of oral co ntrast. A dose lowering technique was utilized adhering to the principles of ALARA. COMPARISON STUDY: CT abdomen and pelvis 09/14/2021 FINDINGS: Trace left and small right pleural effusions. Postoperative changes of the left lung base. Mild associated traction bronchiectasis with bibasilar atelectasis/scarring. Mild emphysema suggested . No pneumatosis or pneumoperitoneum. Mild cardiomegaly with coronary artery calcifications. The unen hanced spleen, and adrenal glands are unremarkable. Cholecystectomy. Unchanged 2.4 cm cystic structur e of the pancreatic body on image 96 series 3 is unchanged, possibly a sidebranch IPMN. Unremarkable liver. Mixed attenuating bilateral renal lesions are redemonstrated which are notably characterized suggesti ve of a combination of simple and proteinaceous versus hemorrhagic cysts.e the largest complex cyst i s noted involving the superior pole left kidney measuring 1.5 cm. indeterminate 10 mm slightly exophy tic lesion of the interpolar right kidney with Hounsfield of 36. No hydronephrosis. Mild urinary blad wilmer wall thickening. Unremarkable uterus. Atherosclerosis of the aorta. There are several prominent p kevin-aortic and iliac chain lymph nodes measuring up to 9 mm, favored to be reactive. No bowel obstruction. Prior partial colectomy with transverse colostomy redemonstrated. Contrast exte nds into the colostomy bag. Mild wall thickening of the colostomy site is likely secondary to partial distention. Small parastomal hernia containing mesenteric fat and trace free fluid. Trace abdominal pelvic ascites with anasarca. Mild rectal wall thickening with perirectal stranding. No acute fractur e. Partially imaged hardware of the proximal right femur laterally. Degenerative changes of the spine , pelvis and hips IMPRESSION: 1. Mild rectal wall thickening with perirectal stranding. Correlate clinically to exclude a nonspecif ic proctitis. 2. Prior left colectomy with transverse colostomy. No bowel obstruction. 3. Small right and trace left pleural effusions with trace abdominopelvic ascites and anasarca. 4. Cardiomegaly. 5. Additional findings as above. ACT 112: Negative or not required by law. The above report was generated using voice recognition software. It may contain grammatical, syntax o r spelling errors. Electronically signed by: Wayne Cortez M.D. 09/16/2021 8:38 PM
[2021-09-16 21:19] LABS: Appearance Urine Clear (Clear); Bacteria Urine Automated Negative (Negative); Bilirubin Urine Negative (Negative); Blood Urine Negative (Negative); Color Urine Yellow; Epithelial Cell Urine Auto >30 /lpf (0-5); Glucose Urine UA Negative (Negative); Ketones Urine Negative (Negative); Leukocyte Esterase Urine 1+ (Negative); Nitrite Urine Negative (Negative); Protein Urine 3+ (Negative); RBC Urine Automated 0-4 /hpf (0-4); Specific Gravity Urine 1.016 (1.000-1.030); Urobilinogen Urine Negative (Negative)
[2021-09-16] MEDS: MONTELUKAST SODIUM 10 MG TABLET PO SCH (21:27)
[2021-09-16] MEDS: ATORVASTATIN 20 MG TAB PO SCH (21:27)
[2021-09-17] MEDS: LEVOTHYROXINE SODIUM 50 MCG TABLET PO SCH (06:04)
[2021-09-17] MEDS: DICYCLOMINE HCL 20 MG TAB PO SCH ×4 (07:32→21:27)
[2021-09-17] MEDS: DULoxetine HCL 20 MG CAP PO SCH (07:33)
[2021-09-17] MEDS: METOPROLOL SUCC 25MG EXT REL TAB PO SCH ×2 (07:33→21:26)
[2021-09-17] MEDS: TORSEMIDE 20 MG TAB PO SCH (07:33)
[2021-09-17] MEDS: CHOLECALCIFEROL 1,000 UNITS 25 MCG TAB PO SCH ×2 (07:33→21:27)
[2021-09-17] MEDS: MIDODRINE HCL 10 MG TAB PO SCH ×3 (07:33→16:04)
[2021-09-17] MEDS: PANTOprazole 40 MG TAB PO SCH ×2 (07:33→21:27)
[2021-09-17] MEDS: ASPIRIN 81 MG ECTAB PO SCH (07:33)
[2021-09-17] MEDS: UMECLIDINIUM BROMIDE 62.5MCG/BLISTER 7 PUFFS/INHALER INH SCH (07:34)
[2021-09-17] MEDS: POLYETHYLENE (MIRALAX) 17 GM PACK PO SCH ×3 (07:34→21:26)
[2021-09-17] MEDS: FLUTICASONE/VILANTEROL 100/25MCG 14 PUFFS/INHALER INH SCH (07:34)
[2021-09-17] MEDS: ACETAMINOPHEN 500 MG TAB PO SCH ×3 (07:36→21:25)
[2021-09-17] MEDS: SODIUM CHLORIDE 0.65% NA SOLN 45 ML (OCEAN) NAE SCH ×3 (07:36→21:27)
--- NOTE | 2021-09-17 09:36 | History & Physical Bridge Note ---
Date of Service September 17, 2021 History & Physical Bridge Note I have examined the patient, reviewed the History & Physical and in the interval since the performance of the History & Physical I have noted the following changes of clinical significance: CT did not reveal any source of active GI bleeding. Patient continued to have dark blood out of her ostomy overnight. She had a sip of fatuma scot at 6:30 AM, but has otherwise been NPO. H/H 8.9/27.9. Continue to monitor H/H. Protonix 40 mg BID. Proceed with EGD & colonoscopy today. Supervising Physician Co-Signing Physician Notes Agree with LESTER Hayes as above Abd: Soft, NT, ND, Ostomy bag with BRB Continue current therapy Proceed with EGD and colonoscopy via colostomy and rectum
--- NOTE | 2021-09-17 13:04 | Anesthesiology Consultation ---
Date of Service September 17, 2021 Assessment & Plan Chart Review Chart Review: Acceptable Risk for Surgery Consults Requested none History Surgery Operation Date: 09/17/21 18:00 Proposed Procedures p Colonoscopy EGD Dr. Harshil Carrillo Case, Height/Weight Height: 5 ft 6 in Weight: 86.8 kg Allergies Allergy/AdvReac Type Severity Reaction Status Date / Time diltiazem Allergy Severe SHORTNESS Verified 08/22/21 09:30 OF BREATH AND SWELLING OF HANDS AND FACE nut - unspecified Allergy Severe Wheezing Verified 08/22/21 09:30 peanut Allergy Severe Wheezing Verified 08/22/21 09:30 Yeast Allergy Severe Wheezing Verified 08/22/21 09:30 Penicillins Allergy Intermediate WELTS IN Verified 08/22/21 09:30 MOUTH AND SPREAD TO BODY adhesive Allergy Mild BLISTERS Verified 08/22/21 09:30 latex Allergy Mild RASH Verified 08/22/21 09:30 indomethacin Allergy Unknown per pulm Verified 08/22/21 09:30 note tree and shrub pollen Allergy Unknown ELM Verified 08/22/21 09:30 TREE-RASH BLISYERS HANDS ARMS FEET allopurinol Allergy Unknown Unverified 08/22/21 09:30 febuxostat [From Uloric] Allergy Unknown Verified 08/22/21 09:30 oxycodone Allergy Unknown Verified 08/22/21 09:30 codeine AdvReac Mild N&V&GI PAIN Verified 08/22/21 09:30 paroxetine AdvReac Mild GI SYMPTOMS Verified 08/22/21 09:30 varenicline AdvReac Mild GI Verified 08/22/21 09:30 SYMPTOMS,HALLUCINATIONS linaclotide [From Linzess] AdvReac Unknown CAUSED Verified 08/22/21 09:30 ASTHMA ATTACK Medications Home Medications Medication Instructions Recorded Confirmed Last Taken duloxetine 20 mg capsule,delayed 40 mg PO QAM #60 cap 09/10/20 09/14/21 09/14/20 05:00 release budesonide-formoterol HFA 160 2 puff INHALATION BID #10.2 gm 11/15/20 09/14/21 Unknown mcg-4.5 mcg/actuation aerosol inhaler (Symbicort) montelukast 10 mg tablet 10 mg PO HS #30 tab 04/03/21 09/14/21 Unknown acetaminophen 325 mg tablet 650 mg PO Q4 PRN 05/28/21 09/14/21 Unknown cholecalciferol (vitamin D3) 25 25 mcg PO BID 05/28/21 09/14/21 Unknown mcg (1,000 unit) tablet sodium chloride 0.65 % nasal spray 1 spray INTRANASAL TID 05/28/21 09/14/21 Unk nown aerosol (Saline Nasal) metoprolol succinate 50 mg 12.5 mg PO BID tab 08/13/21 09/14/21 Unknown tablet,extended release 24 hr umeclidinium 62.5 mcg/actuation 1 inh INHALATION DAILY 08/13/21 09/14/21 Unknown blister powder for inhalation (Incruse Ellipta) aspirin 81 mg tablet,delayed 81 mg PO DAILY 08/22/21 09/14/21 Unknown release (Adult Aspirin Regimen) atorvastatin 20 mg tablet 20 mg PO HS #90 tab 08/22/21 09/14/21 Unknown levothyroxine 50 mcg tablet 50 mcg PO DAILY #90 tab 08/22/21 09/14/21 Unknown midodrine 10 mg tablet 10 mg PO TID #90 tab 08/22/21 09/14/21 Unknown omeprazole 20 mg capsule,delayed 20 mg PO DAILY #90 cap 08/22/21 09/14/21 Unkno wn release promethazine 25 mg tablet 25 mg PO TID PRN #90 tab 08/22/21 09/14/21 Unknown torsemide 20 mg tablet 40 mg PO DAILY #120 tab 08/22/21 09/14/21 Unknown tramadol 50 mg tablet 100 mg PO Q8 PRN #180 tab 08/22/21 09/14/21 Unknown Active Medications Generic Name Dose Route Start Last Admin Trade Name Emelina PRN Reason Stop Dose Admin Acetaminophen 1,000 mg 09/14/21 21:00 09/17/21 12:09 Acetaminophen 500 Mg Tab PO 10/14/21 20:59 Not Given TID JOSÉ LUIS Aspirin 81 mg 09/15/21 09:00 09/17/21 07:33 Aspirin 81 Mg Ectab PO 10/15/21 08:59 81 mg DAILY JOSÉ LUIS Administration Atorvastatin Calcium 20 mg 09/14/21 21:00 09/16/21 21:27 Atorvastatin 20 Mg Tab PO 10/14/21 20:59 20 mg HS JOSÉ LUIS Administration Dicyclomine HCl 20 mg 09/16/21 13:00 09/17/21 12:08 Dicyclomine Hcl 20 Mg Tab PO 10/16/21 12:59 Not Given QID JOSÉ LUIS Duloxetine HCl 40 mg 09/15/21 09:00 09/17/21 07:33 Duloxetine Hcl 20 Mg Cap PO 10/15/21 08:59 40 mg QAM JOSÉ LUIS Administration Fluticasone/Vilanterol 1 puffs 09/15/21 09:00 09/17/21 07:34 Fluticasone/Vilanterol 100/25mcg 14 Puffs/Inhaler INH 10/15/21 08:59 1 puf fs DAILY JOSÉ LUIS Administration Protocol Levothyroxine Sodium 50 mcg 09/15/21 06:30 09/17/21 06:04 Levothyroxine Sodium 50 Mcg Tablet PO 10/15/21 06:29 50 mcg DAILYBB JOSÉ LUIS Administration Metoprolol Succinate 12.5 mg 09/14/21 21:00 09/17/21 07:33 Metoprolol Succ 25mg Ext Rel Tab PO 10/14/21 20:59 Not Given BID JOSÉ LUIS Midodrine 10 mg 09/14/21 19:00 09/17/21 12:09 Midodrine Hcl 10 Mg Tab PO 10/14/21 18:59 Not Given TID@0900,1300,1800 JOSÉ LUIS Montelukast Sodium 10 mg 09/14/21 21:00 09/16/21 21:27 Montelukast Sodium 10 Mg Tablet PO 10/14/21 20:59 10 mg HS JOSÉ LUIS Administration Polyethylene Glycol 17 gm 09/14/21 18:33 09/15/21 16:34 Polyethylene (Miralax) 17 Gm Pack PO 10/14/21 18:32 17 gm DAILY PRN Administration Constipation Polyethylene Glycol 17 gm 09/15/21 09:00 09/17/21 12:09 Polyethylene (Miralax) 17 Gm Pack PO 10/15/21 08:59 Not Given TID JOSÉ LUIS Sodium Chloride 1 sprays 09/14/21 21:00 09/17/21 12:09 Sodium Chloride 0.65% Na Soln 45 Ml ([place]) ALMA 10/14/21 20:59 1 sprays TID JOSÉ LUIS Administration Torsemide 40 mg 09/15/21 09:00 09/17/21 07:33 Torsemide 20 Mg Tab PO 10/15/21 08:59 40 mg DAILY JOSÉ LUIS Administration Tramadol HCl 100 mg 09/14/21 18:33 09/16/21 09:04 Tramadol Hcl 50 Mg Tablet PO 10/14/21 18:32 100 mg Q8H PRN Administration lower abdominal pain Umeclidinium [place] 1 puffs 09/15/21 09:00 09/17/21 07:34 Umeclidinium [place] 62.5mcg/Blister 7 Puffs/Inhaler INH 10/15/21 08:59 1 puffs DAILY JOSÉ LUIS Administration Vitamin D 1,000 units 09/14/21 21:00 09/17/21 07:33 Cholecalciferol 1,000 Units 25 Mcg Tab PO 10/14/21 20:59 1,000 units BID JOSÉ LUIS Administration NPO Date Last Intake of Fluids: 09/17/21 Time Last Intake of Fluids: 08:00 Last Intake of Fluids Comment: small sip of water with pills Date Last Intake of Solids: 09/13/21 Time Last Intake of Solids: 17:00 Past Medical History Medical History Anxiety Asthma Atrial fibrillation on xarelto---follows with Dr. 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 CML (chronic myelocytic leukemia) F/U DR [facility] Depression Diabetes mellitus, type 2 DIET MANAGED GERD (gastroesophageal reflux disease) Hyperlipidemia Hypertension Hypothyroidism Iron deficiency anemia Kidney stones HX Lung cancer, lower lobe 2017--left--sx, chemo On anticoagulant therapy On home oxygen therapy 2L n/c continuous Sleep apnea NO LONGER USING CPAP-USES ONLY OXYGEN CONTINUOUSLY SOBOE (shortness of breath on exertion) Stress incontinence in female Temporomandibular joint disorder PAIN BILAT-HAS NEVER LOCKED Past Family History Family History Sister Family history of reaction to anesthesia "had an allergic reaction", not sure what happened Arthritis Family history of diabetes mellitus Heart disease Hypertension Mother Family history of diabetes mellitus Myocardial infarction Heart disease Hypertension age 63 due to MA Grandmother Family history of diabetes mellitus maternal Family/Other Family history of diabetes mellitus maternal uncle/maternal aunts Colorectal cancer Family/Other Family hx of colon cancer paternal cousin Father age 91 Denies family history of Crohn's disease Ulcerative colitis Past Surgical History Surgical History History of appendectomy History of bronchoscopy 2016 History of cardiac cath 11/2017 @ [facility]--no stents History of cholecystectomy History of colonoscopy History of dilatation and curettage History of esophagogastroduodenoscopy (EGD) History of lobectomy of lung lower left lobe 2016 @ [facility] History of open reduction and internal fixation (ORIF) procedure R upper thigh x2--pins/rods in place History of tooth extraction all teeth History of total left knee replacement (TKR) History of total right knee replacement (TKR) Social History Smoking Status: Former smoker tobacco type: cigarettes Smoking cigarettes per day: 2pks Hx Alcohol Use: No Hx Substance Use: No substance use type: does not use Physical Exam Vital Signs Last Vital Signs Temp 36.2 C L 09/17/21 12:51 Pulse 110 H 09/17/21 12:51 Resp 20 09/17/21 12:51 BP 121/72 09/17/21 12:51 Pulse Ox 100 09/17/21 12:51 Testing Laboratory Results 09/16/21 19:01 09/16/21 19:01 PT 11.8 Seconds (9.0-12.0) 09/14/21 13:55 INR 1.2 (0.9-1.1) H 09/14/21 13:55 APTT 29.4 Seconds (21.0-31.0) 09/14/21 13:55 Urine Color Yellow 09/16/21 17:45 Urine Appearance Clear (Clear) 09/16/21 17:45 Urine pH 5.0 (4.5-7.5) 09/16/21 17:45 Ur Specific [place] 1.016 (1.000-1.030) 09/16/21 17:45 Urine Protein 3+ (Negative) H 09/16/21 17:45 Urine Glucose (UA) Negative (Negative) 09/16/21 17:45 Urine Ketones Negative (Negative) 09/16/21 17:45 Urine Nitrite Negative (Negative) 09/16/21 17:45 Ur Leukocyte Esterase 1+ (Negative) H 09/16/21 17:45 Urine WBC (Auto) 1-5 /hpf (0-5) 09/16/21 17:45 Urine RBC (Auto) 0-4 /hpf (0-4) 09/16/21 17:45 U Hyaline Cast (Auto) 10-30 /lpf (0-5) H 09/16/21 17:45 U Epithel Cells (Auto) >30 /lpf (0-5) H 09/16/21 17:45 Urine Bacteria (Auto) Negative (Negative) 09/16/21 17:45 09/14/21 15:34 Aerobic Blood Culture - Preliminary Blood No growth in Aerobic bottle after 48 hours. Anaerobic Blood Culture - Preliminary No growth in Anaerobic bottle after 48 hours. 09/14/21 15:38 Aerobic Blood Culture - Preliminary Blood No growth in Aerobic bottle after 48 hours. Anaerobic Blood Culture - Preliminary No growth in Anaerobic bottle after 48 hours.
--- NOTE | 2021-09-17 13:52 | GI REPORT ---
Patient Name: Marycarmen Schilling Procedure Date: 09/17/2021 1:08 PM Date of : 1955 Admit Type: Inpatient Age: 66 Gender: Female Attending MD: Kalia Chua DO Procedure: Upper GI endoscopy Providers: Kalia Chua DO Referring MD: Cecilio Rodriguez M.D. Indications: Acute post hemorrhagic anemia Medicines: Monitored Anesthesia Care Complications: No immediate complications. Estimated Blood Loss: Estimated blood loss: none. Procedure: Pre-Anesthesia Assessment: - Prior to the procedure, a History and Physical was performed, and patient medications and allergies were reviewed. The patient's tolerance of previous anesthesia was also reviewed. The risks and benefits of the procedure and the sedation options and risks were discussed with the patient. All questions were answered, and informed consent was obtained. Prior Anticoagulants: The patient has taken no previous anticoagulant or antiplatelet agents except for aspirin. ASA Grade Assessment: IV - A patient with severe systemic disease that is a constant threat to life. After reviewing the risks and benefits, the patient was deemed in satisfactory condition to undergo the procedure. After obtaining informed consent, the endoscope was passed under direct vision. Throughout the procedure, the patient's blood pressure, pulse, and oxygen saturations were monitored continuously. The Endoscope was introduced through the mouth, and advanced to the second part of duodenum. The upper GI endoscopy was accomplished without difficulty. The patient tolerated the procedure well. Findings: The esophagus was normal. Localized moderate inflammation characterized by erythema was found in the gastric antrum. The examined duodenum was normal. Impression: - Normal esophagus. - Gastritis. - Normal examined duodenum. - No specimens collected. Recommendation: - [facility]. - Advance diet as tolerated. - Continue present medications. Kalia Chua DO 09/17/2021 1:52:15 PM This report has been signed electronically. Note Initiated On: 09/17/2021 1:08 PM Number of Addenda: 0 I attest to the content of the Intraoperative Record and orders documented therein, exceptions below {[id number]}
[2021-09-17] MEDS ORDERED: PHENYLEPHRINE 100MCG/ML 5ML SYR ONE (13:54)
[2021-09-17] MEDS ORDERED: PROPOFOL IV EMULSION 10 MG/ML 20 ML VIAL IV ONE (13:54)
[2021-09-17] MEDS ORDERED: GLYCOPYRROLATE 0.2 MG/ML VIAL ONE (13:54)
[2021-09-17] MEDS ORDERED: LIDOCAINE 2% 2 ML VIAL/AMP(20MG/ML) INFIL ONE (13:54)
--- NOTE | 2021-09-17 13:58 | GI REPORT ---
Patient Name: Marycarmen Schilling Procedure Date: 09/17/2021 1:09 PM Date of : 1955 Admit Type: Inpatient Age: 66 Gender: Female Attending MD: Kalia Chua DO Procedure: Colonoscopy Providers: Kalia Chua DO Referring MD: Cecilio Rodriguez M.D. Indications: Acute post hemorrhagic anemia Medicines: Monitored Anesthesia Care Complications: No immediate complications. Estimated Blood Loss: Estimated blood loss: none. Procedure: Pre-Anesthesia Assessment: - Prior to the procedure, a History and Physical was performed, and patient medications and allergies were reviewed. The patient's tolerance of previous anesthesia was also reviewed. The risks and benefits of the procedure and the sedation options and risks were discussed with the patient. All questions were answered, and informed consent was obtained. Prior Anticoagulants: The patient has taken no previous anticoagulant or antiplatelet agents except for aspirin. ASA Grade Assessment: IV - A patient with severe systemic disease that is a constant threat to life. After reviewing the risks and benefits, the patient was deemed in satisfactory condition to undergo the procedure. After I obtained informed consent, the scope was passed under direct vision. Throughout the procedure, the patient's blood pressure, pulse, and oxygen saturations were monitored continuously. The Endoscope was introduced through the transverse colostomy and advanced to the terminal ileum. The Endoscope was subsequently introduced through the anus and advanced into the sigmoid colon. There was mild erythema in the rectum consistent with proctitis. The view was obscured by a large amount of solid stool in the rectum. The colonoscopy was performed without difficulty. The patient tolerated the procedure well. The quality of the bowel preparation was good via the transverse colostomy, but poor via the anus. The ileocecal valve, appendiceal orifice, and rectum were photographed. Findings: The perianal and digital rectal examinations were normal. Impression: - No specimens collected. Recommendation: - [facility]. - Advance diet as tolerated. - Continue present medications. Kalia Chua DO 09/17/2021 1:58:12 PM This report has been signed electronically. Note Initiated On: 09/17/2021 1:09 PM Number of Addenda: 0 I attest to the content of the Intraoperative Record and orders documented therein, exceptions below {[id number]}
--- NOTE | 2021-09-17 14:24 | Anesthesiology Progress Note ---
Date of Service September 17, 2021 Anesthesia Post Procedure Vital Signs Vital Signs: Temp Pulse Pulse Resp BP Pulse Ox 09/17/21 14:15 110 H 20 101/67 100 09/17/21 14:04 118 H 20 100/61 100 09/17/21 12:51 36.2 C L 110 H 20 121/72 100 09/17/21 11:23 36.9 C 95 H 18 97/60 L 98 09/17/21 08:55 104 H 09/17/21 07:33 36.8 C 102 H 18 95/58 L 98 09/17/21 04:32 36.8 C 102 H 20 98/56 L 96 09/17/21 01:16 98 H 09/16/21 23:28 36.3 C L 112 H 24 116/65 98 09/16/21 20:02 36.5 C 99 H 20 111/71 99 09/16/21 15:53 36.7 C 99 H 18 99/62 L 97 Pain Intensity Abdomen: Pain Intensity: 10 Transfer of Care Handoff Completed per policy Notes Mental Status: alert / awake / arousable and participated in evaluation Patient Amnestic to Procedure: Yes Nausea / Vomiting: adequately controlled Pain: adequately controlled Airway Patency, RR, SpO2: stable & adequate BP & HR: stable & adequate Hydration State: stable & adequate Anesthetic Complications: no major complications apparent
[2021-09-17] MEDS: MONTELUKAST SODIUM 10 MG TABLET PO SCH (21:27)
[2021-09-17] MEDS: ATORVASTATIN 20 MG TAB PO SCH (21:27)
[2021-09-17] MEDS: traMADol HCL 50 MG TABLET PO PRN (21:28)
--- NOTE | 2021-09-17 21:50 | Hospitalist Progress Note ---
Date of Service September 17, 2021 Assessment & Plan (1) Diffuse abdominal pain: Plan: Much improved was likely due to constipation patient had multiple output from her colostomy after miralax and says her pain is better Will continue miralax CT abdomen and Pelvis did not show any acute pathology Added bentyl. hold bumex due to low BP. consult GI: awaiting scopes. (2) Atrial fibrillation with rapid ventricular response: Plan: Currently rate controlled Continue metoprolol succinate 12.5mg PO BID and Amiodarone Not on anticoagulation due to recent spontaneous retroperitoneal bleed (3) Chronic heart failure with preserved ejection fraction: Plan: Patient appears compensated Continue home medications Monitor I/O, daily weight (4) Leukocytosis: Plan: Suspect from CML. Does not appear to be blast crisis from CBC differential however will get peripheral smear in AM. (5) CML (chronic myeloid leukemia): Plan: As above. On no current treatment for this. Intolerant to multiple treatment in the past per prior heme notes Follow up with hematology as outpatient No source of infection at this time, will d/c further antibiotics (6) Hypothyroidism: Plan: TSH WNL Continue levothyroxine 50 mcg PO daily (7) Chronic kidney disease, stage 3 (moderate): Plan: Cr improving, 1.67 today, close to baseline (8) COPD (chronic obstructive pulmonary disease): Plan: No acute exacerbation Continue Symbicort and Anoro Ellipta or hospital formulary equivalent (9) GERD (gastroesophageal reflux disease): Plan: Switch omeprazole to pantoprazole per hospital formulary (10) Hypotension: Plan: Continue her usual midodrine 10mg TID (11) Bright red rectal bleeding: Plan: On repeat visit, Patient had bleeding at ostomy site. appreciate input from GI. will obtain ct scan of abd/pelvis with po contrast. hold IV contrast due to GIOVANA. Plan: VTE Prophylaxis - no chemical prophylaxis due to prior retroperitoneal bleed Diet - clear, can likely advance diet as pain/constipation improved Disposition - admit to med/tele due to a. fib RVR Admission and Anticipated Discharge Date Admission Date: September 14, 2021 Subjective Patient reports no new symptoms. Denies any bleeding. Review of Systems Review of Systems: All systems reviewed & are unremarkable except as noted in HPI & below Physical Exam Physical Exam: The patient is awake, alert and oriented 3, well developed and well nourished, normocephalic and atraumatic, lying in bed and in no acute distress. HEENT--PERRL, EOMI, mucous membranes and oropharynx mildly dry Neck--supple. No JVD. No bruits. Thyroid normal, trachea midline, no adenopathy. Heart--normal S1 and S2. No murmurs, rubs or gallops. Lungs--clear bilaterally, no respiratory distress, no accessory muscle use. Abdomen--normal bowel sounds and soft. abdominal pain in left upper and lower quadrant with soft palpation, no guarding. Mild pain on right LQ. colostomy bag in situ Extremities--no cyanosis or clubbing. No edema. Dermatologic--normal skin turgor, normal color, no abnormal lymph nodes, no rash. Neurologic--cranial nerves II through XII grossly intact. Rheumatologic--normal range of motion. Psychiatric--normal affect. Results & Data Results & Data ([facility]) Vital Signs (Past 12 Hours) Vital Signs Temp Pulse Pulse Resp BP Pulse Ox 09/17/21 19:51 36.8 C 102 H 20 91/57 L 98 09/17/21 15:31 36.5 C 122 H 18 95/59 L 96 09/17/21 15:29 100 H 09/17/21 14:24 104 H 20 97/69 L 96 09/17/21 14:15 110 H 20 101/67 100 09/17/21 14:04 118 H 20 100/61 100 09/17/21 12:51 36.2 C L 110 H 20 121/72 100 09/17/21 11:23 36.9 C 95 H 18 97/60 L 98 PG Care Time/CCT Total # of Minutes Spent Total Time Spent with Patient: Total time spent is greater than 50% in coordination of care (as documented) at patient's floor/unit and/or counseling patient: Coding Level of Care Code 51960 Subseq Hosp Care Lvl 2 Diagnoses Diffuse abdominal pain R10.84 Atrial fibrillation with rapid ventricular response I48.91 Chronic heart failure with preserved ejection fraction I50.32 Leukocytosis D72.829 Leukocytosis type: unspecified CML (chronic myeloid leukemia) C92.10 Hypothyroidism E03.9 Chronic kidney disease, stage 3 (moderate) N18.3 COPD (chronic obstructive pulmonary disease) J43.9 COPD type: emphysema Emphysema type: unspecified GERD (gastroesophageal reflux disease) K21.9 Hypotension I95.9 Bright red rectal bleeding K62.5 Time Spent (min) 25 (1) Leukocytosis Leukocytosis type: unspecified Qualified Code(s): D72.829 - Elevated white blood cell count, unspecified (2) COPD (chronic obstructive pulmonary disease) COPD type: emphysema Emphysema type: unspecified Qualified Code(s): J43.9 - Emphysema, unspecified
[2021-09-18] MEDS: LEVOTHYROXINE SODIUM 50 MCG TABLET PO SCH (06:20)
[2021-09-18 08:35] LABS: BUN Creatinine Ratio 24.4 (10-20); Calcium 8.3 mg/dl (8.5-10.1); Creatinine Clr Calc Pharmacy 29.5 ml/min; Est GFR (African American) 28.5 ml/min; Est GFR (Non-African American) 24.6 ml/min; Potassium 3.1 mmol/L (3.5-5.1)
[2021-09-18 08:42] LABS: Hematocrit (blood only) 22.6 % (37-47); Hemoglobin 7.3 g/dL (12.0-16.0); Mean Corpuscular Hemoglobin 26.5 pg (25-34); Mean Corpuscular Hgb Conc 32.3 g/dL (32-36); Mean Corpuscular Volume 82.2 fL (80-100); Mean Platelet Volume 11.1 fL (7.4-10.4); Nucleated RBC % (auto) 0.9 %; Platelet Count 994 K/uL (130-400); RDW Coefficient of Variation 19.3 % (11.5-14.5); RDW Standard Deviation 55.2 fL (36.4-46.3); Red Blood Count 2.75 M/uL (4.2-5.4); White Blood Count 68.01 K/uL (4.8-10.8)
[2021-09-18] MEDS: UMECLIDINIUM BROMIDE 62.5MCG/BLISTER 7 PUFFS/INHALER INH SCH (09:01)
[2021-09-18] MEDS: FLUTICASONE/VILANTEROL 100/25MCG 14 PUFFS/INHALER INH SCH (09:01)
[2021-09-18] MEDS: PANTOprazole 40 MG TAB PO SCH ×2 (09:02→20:50)
[2021-09-18] MEDS: POLYETHYLENE (MIRALAX) 17 GM PACK PO SCH ×3 (09:02→20:50)
[2021-09-18] MEDS: CHOLECALCIFEROL 1,000 UNITS 25 MCG TAB PO SCH ×2 (09:02→20:51)
[2021-09-18] MEDS: DICYCLOMINE HCL 20 MG TAB PO SCH ×4 (09:02→20:51)
[2021-09-18] MEDS: METOPROLOL SUCC 25MG EXT REL TAB PO SCH ×2 (09:03→20:49)
[2021-09-18] MEDS: DULoxetine HCL 20 MG CAP PO SCH (09:04)
[2021-09-18] MEDS: ASPIRIN 81 MG ECTAB PO SCH (09:04)
[2021-09-18] MEDS: MIDODRINE HCL 10 MG TAB PO SCH ×3 (09:05→17:19)
[2021-09-18] MEDS: SODIUM CHLORIDE 0.65% NA SOLN 45 ML (OCEAN) NAE SCH ×3 (09:05→20:52)
[2021-09-18] MEDS: ACETAMINOPHEN 500 MG TAB PO SCH ×3 (09:06→20:55)
[2021-09-18] MEDS: traMADol HCL 50 MG TABLET PO PRN ×2 (09:09→20:54)
[2021-09-18] MEDS: TORSEMIDE 20 MG TAB PO SCH (10:07)
--- NOTE | 2021-09-18 10:54 | Gastroenterology Progress Note ---
Date of Service September 18, 2021 Assessment & Plan (1) Bright red rectal bleeding: (2) Stomal bleeding: Plan: -Peristomal bleeding noted during colonoscopy as well as diversion colitis of the rectum -Continue to monitor H/H -Ok to add Hydrocortisone suppositories BID x 10 days for the rectal inflammation -Supportive care and electrolyte replacement per primary team Admission and Anticipated Discharge Date Admission Date: September 14, 2021 Supervising Physician Co-Signing Physician Notes Agree with LESTER Hayes as above Abd: Soft, NT, ND, Stoma pink, dark brown liquid stool in ostomy bag Continue current therapy and supportive care 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 Will defer to general surgery as to if/when patient will have colostomy reversal, which is the definitive treatment for diversion colitis. No active GI bleeding at time of EGD/Colon (via anus and ostomy) yesterday Transfuse PRN as per primary team Could consider a Tagged RBC scan if patient continues to have bleeding, or decline in H/H Subjective Patient is a 66 yo female with bleeding at the stoma & BRBPR. She had a colonoscopy on 09/18/21 that suggested diversion colitis and a peristomal bleed as the likely sources of bleeding. H/H today is 7.3/22.6. She notes an episode of BRBPR this AM. She denies abdominal pain. Peristomal bleeding is greatly improved. Review of Systems Constitutional: no fever and no chills Respiratory: no cough and no dyspnea Cardiovascular: no chest pain Gastrointestinal: + blood in stools; no abdominal pain Physical Exam Constitutional: well developed Neck: normal visual inspection Respiratory: normal respiratory effort Cardiovascular: Extremities: no edema Gastrointestinal (Abdomen): Peristomal bleeding improved, old blood noted in colostomy bag Results & Data Results & Data ([facility]) Vital Signs (Past 12 Hours) Vital Signs Temp Pulse Pulse Resp BP Pulse Ox 09/18/21 07:58 102 H 09/18/21 07:30 36.7 C 16 96/56 L 97 09/18/21 06:27 99 H 09/18/21 03:06 36.9 C 97 H 20 94/58 L 98 09/18/21 00:16 37.2 C 108 H 24 93/54 L 97 PG Care Time/CCT Total # of Minutes Spent Total Time Spent with Patient: Total time spent is greater than 50% in coordination of care (as documented) at patient's floor/unit and/or counseling patient: Coding Level of Care Code 26154 Subseq Hosp Care Lvl 2 Diagnoses Bright red rectal bleeding K62.5 Stomal bleeding
[2021-09-18] MEDS ORDERED: SODIUM CHLORIDE 0.9% 250 ML IV PRN (12:17)
[2021-09-18 19:23] LABS: Hematocrit (blood only) 27.9 % (37-47); Hemoglobin 8.9 g/dL (12.0-16.0)
--- NOTE | 2021-09-18 20:46 | Hospitalist Progress Note ---
Date of Service September 18, 2021 Assessment & Plan (1) Diffuse abdominal pain: Plan: Much improved was likely due to constipation patient had multiple output from her colostomy after miralax and says her pain is better Will continue miralax CT abdomen and Pelvis did not show any acute pathology Added bentyl. hold bumex due to low BP. consult GI: awaiting scopes. (2) Atrial fibrillation with rapid ventricular response: Plan: Currently rate controlled Continue metoprolol succinate 12.5mg PO BID and Amiodarone Not on anticoagulation due to recent spontaneous retroperitoneal bleed (3) Chronic heart failure with preserved ejection fraction: Plan: Patient appears compensated Continue home medications Monitor I/O, daily weight (4) Leukocytosis: Plan: Suspect from CML. Does not appear to be blast crisis from CBC differential however will get peripheral smear in AM. (5) CML (chronic myeloid leukemia): Plan: As above. On no current treatment for this. Intolerant to multiple treatment in the past per prior heme notes Follow up with hematology as outpatient No source of infection at this time, will d/c further antibiotics (6) Hypothyroidism: Plan: TSH WNL Continue levothyroxine 50 mcg PO daily (7) Chronic kidney disease, stage 3 (moderate): Plan: Cr improving, 1.67 today, close to baseline (8) COPD (chronic obstructive pulmonary disease): Plan: No acute exacerbation Continue Symbicort and Anoro Ellipta or hospital formulary equivalent (9) GERD (gastroesophageal reflux disease): Plan: Switch omeprazole to pantoprazole per hospital formulary (10) Hypotension: Plan: Continue her usual midodrine 10mg TID (11) Bright red rectal bleeding: Plan: On repeat visit, Patient had bleeding at ostomy site. appreciate input from GI. will obtain ct scan of abd/pelvis with po contrast. hold IV contrast due to GIOVANA. Acute blood loss Anemia BLEEDING appears to have stopped. however patient has anemia. will transfuse 1 PRBC as hgb is 7 and BP is low. will transfuse one unit Plan: VTE Prophylaxis - no chemical prophylaxis due to prior retroperitoneal bleed Diet - clear, can likely advance diet as pain/constipation improved Disposition - admit to med/tele due to a. fib RVR Admission and Anticipated Discharge Date Admission Date: September 14, 2021 Subjective Patient reports no new symptoms. Review of Systems Review of Systems: All systems reviewed & are unremarkable except as noted in HPI & below Physical Exam Physical Exam: The patient is aw marleny, alert and kath ented 3, well dev eloped and well no urished, normoceph alic and atraumati c, lying in bed an d in no acute dist ress. HEENT--PERRL , EOMI, mucous mem branes and orophar ynx mildly dry Nec k--supple. No JVD . No bruits. Thyro id normal, trachea midline, no adeno crystal. Heart--norm al S1 and S2. No murmurs, rubs or g allops. Lungs--nguyen ar bilaterally, no respiratory distr ess, no accessory muscle use. Abdome n--normal bowel so unds and soft. ab dominal pain in le ft upper and lower quadrant with sof t palpation, no gu arding. NT. colost jimena bag in situ Ex tremities--no cyan osis or clubbing. No edema. Dermatol ogic--normal skin turgor, normal col or, no abnormal ly mph nodes, no rash . Neurologic--cran ial nerves II thro ugh XII grossly in tact. Rheumatologi c--normal range of motion. Psychiatr ic--normal affect Results & Data Results & Data ([facility]) Vital Signs (Past 12 Hours) Vital Signs Temp Pulse Pulse Resp BP BP Pulse Ox 09/18/21 19:38 37.4 C 102 H 20 103/66 100 09/18/21 17:39 103 H 09/18/21 16:34 37.0 C 106 H 16 105/59 L 100 09/18/21 16:00 36.8 C 97 H 18 102/63 97 09/18/21 15:00 36.6 C 103 H 16 98/59 L 100 09/18/21 14:50 36.9 C 96 H 16 91/58 L 98 09/18/21 14:30 37.1 C 101 H 18 97/61 L 99 09/18/21 14:00 37.0 C 107 H 18 94/57 L 09/18/21 12:29 95/48 L PG Care Time/CCT Total # of Minutes Spent Total Time Spent with Patient: Total time spent is greater than 50% in coordination of care (as documented) at patient's floor/unit and/or counseling patient: Coding Level of Care Code 56935 Subseq Hosp Care Lvl 2 Diagnoses Diffuse abdominal pain R10.84 Atrial fibrillation with rapid ventricular response I48.91 Chronic heart failure with preserved ejection fraction I50.32 Leukocytosis D72.829 Leukocytosis type: unspecified CML (chronic myeloid leukemia) C92.10 Hypothyroidism E03.9 Chronic kidney disease, stage 3 (moderate) N18.3 COPD (chronic obstructive pulmonary disease) J43.9 COPD type: emphysema Emphysema type: unspecified GERD (gastroesophageal reflux disease) K21.9 Hypotension I95.9 Bright red rectal bleeding K62.5 (1) Leukocytosis Leukocytosis type: unspecified Qualified Code(s): D72.829 - Elevated white blood cell count, unspecified (2) COPD (chronic obstructive pulmonary disease) COPD type: emphysema Emphysema type: unspecified Qualified Code(s): J43.9 - Emphysema, unspecified
[2021-09-18] MEDS: HYDROCORTISONE ACETATE 25 MG SUPP PR SCH (20:49)
[2021-09-18] MEDS: ATORVASTATIN 20 MG TAB PO SCH (20:50)
[2021-09-18] MEDS: MONTELUKAST SODIUM 10 MG TABLET PO SCH (20:51)
[2021-09-19] MEDS: LEVOTHYROXINE SODIUM 50 MCG TABLET PO SCH (05:41)
[2021-09-19] MEDS: CHOLECALCIFEROL 1,000 UNITS 25 MCG TAB PO SCH ×2 (09:04→20:19)
[2021-09-19] MEDS: DULoxetine HCL 20 MG CAP PO SCH (09:04)
[2021-09-19] MEDS: ASPIRIN 81 MG ECTAB PO SCH (09:04)
[2021-09-19] MEDS: DICYCLOMINE HCL 20 MG TAB PO SCH ×4 (09:04→20:19)
[2021-09-19] MEDS: POLYETHYLENE (MIRALAX) 17 GM PACK PO SCH ×3 (09:04→20:20)
[2021-09-19] MEDS: TORSEMIDE 20 MG TAB PO SCH (09:08)
[2021-09-19] MEDS: METOPROLOL SUCC 25MG EXT REL TAB PO SCH ×2 (09:09→20:19)
[2021-09-19] MEDS: SODIUM CHLORIDE 0.65% NA SOLN 45 ML (OCEAN) NAE SCH ×3 (09:09→20:20)
[2021-09-19] MEDS: HYDROCORTISONE ACETATE 25 MG SUPP PR SCH ×2 (09:09→20:19)
[2021-09-19] MEDS: FLUTICASONE/VILANTEROL 100/25MCG 14 PUFFS/INHALER INH SCH (09:09)
[2021-09-19] MEDS: UMECLIDINIUM BROMIDE 62.5MCG/BLISTER 7 PUFFS/INHALER INH SCH (09:10)
[2021-09-19] MEDS: MIDODRINE HCL 10 MG TAB PO SCH ×3 (09:10→17:27)
[2021-09-19] MEDS: PANTOprazole 40 MG TAB PO SCH ×2 (09:10→20:20)
[2021-09-19] MEDS: ACETAMINOPHEN 500 MG TAB PO SCH ×3 (09:11→20:18)
[2021-09-19 15:06] LABS: Hematocrit (blood only) 24.3 % (37-47); Hemoglobin 7.9 g/dL (12.0-16.0); Mean Corpuscular Hemoglobin 27.2 pg (25-34); Mean Corpuscular Hgb Conc 32.5 g/dL (32-36); Mean Corpuscular Volume 83.8 fL (80-100); Mean Platelet Volume 11.2 fL (7.4-10.4); Nucleated RBC # (auto) 0.28 K/uL (0-0); Nucleated RBC % (auto) 0.4 %; Platelet Count 818 K/uL (130-400); RDW Coefficient of Variation 18.9 % (11.5-14.5); RDW Standard Deviation 54.6 fL (36.4-46.3); White Blood Count 71.34 K/uL (4.8-10.8)
[2021-09-19 15:39] LABS: BUN Creatinine Ratio 24.8 (10-20); Calcium 8.3 mg/dl (8.5-10.1); Creatinine Clr Calc Pharmacy 30.2 ml/min; Est GFR (African American) 27.7 ml/min; Est GFR (Non-African American) 23.9 ml/min; Potassium 3.8 mmol/L (3.5-5.1)
[2021-09-19] MEDS: traMADol HCL 50 MG TABLET PO PRN (17:27)
[2021-09-19] MEDS: ATORVASTATIN 20 MG TAB PO SCH (20:18)
[2021-09-19] MEDS: MONTELUKAST SODIUM 10 MG TABLET PO SCH (20:19)
--- NOTE | 2021-09-19 22:03 | Hospitalist Progress Note ---
Date of Service September 19, 2021 Assessment & Plan (1) Diffuse abdominal pain: Plan: Much improved was likely due to constipation patient had multiple output from her colostomy after miralax and says her pain is better Will continue miralax CT abdomen and Pelvis did not show any acute pathology Added bentyl. hold bumex due to low BP. consult GI: completed colonscopy and upper GI scopes. Patient no longer having bleeding Hemoglobin did dorp to 7.9. will monitor. (2) Atrial fibrillation with rapid ventricular response: Plan: Currently rate controlled Continue metoprolol succinate 12.5mg PO BID and Amiodarone Not on anticoagulation due to recent spontaneous retroperitoneal bleed (3) Chronic heart failure with preserved ejection fraction: Plan: Patient appears compensated Continue home medications Monitor I/O, daily weight (4) Leukocytosis: Plan: Suspect from CML. Does not appear to be blast crisis from CBC differential however will get peripheral smear in AM. (5) CML (chronic myeloid leukemia): Plan: As above. On no current treatment for this. Intolerant to multiple treatment in the past per prior heme notes Follow up with hematology as outpatient No source of infection at this time, will d/c further antibiotics (6) Hypothyroidism: Plan: TSH WNL Continue levothyroxine 50 mcg PO daily (7) Chronic kidney disease, stage 3 (moderate): Plan: Cr improving, 1.67 today, close to baseline (8) COPD (chronic obstructive pulmonary disease): Plan: No acute exacerbation Continue Symbicort and Anoro Ellipta or hospital formulary equivalent (9) GERD (gastroesophageal reflux disease): Plan: Switch omeprazole to pantoprazole per hospital formulary (10) Hypotension: Plan: Continue her usual midodrine 10mg TID (11) Bright red rectal bleeding: Plan: On repeat visit, Patient had bleeding at ostomy site. appreciate input from GI. will obtain ct scan of abd/pelvis with po contrast. hold IV contrast due to GIOVANA. Acute blood loss Anemia BLEEDING appears to have stopped. however patient has anemia. required one unit of PRBC. hemoglobin is 7.9. will recheck in AM. May require repeat unit. Plan: VTE Prophylaxis - no chemical prophylaxis due to prior retroperitoneal bleed Diet - clear, can likely advance diet as pain/constipation improved Disposition - admit to med/tele due to a. fib RVR Admission and Anticipated Discharge Date Admission Date: September 14, 2021 Subjective Patient reports decreased bleeding. Review of Systems Review of Systems: All systems reviewed & are unremarkable except as noted in HPI & below Physical Exam Physical Exam: The patient is awake, alert and oriented 3, well developed and well nourished, normocephalic and atraumatic, lying in bed and in no acute distress. HEENT--PERRL, EOMI, mucous membranes and oropharynx mildly dry Neck--supple. No JVD. No bruits. Thyroid normal, trachea midline, no adenopathy. Heart--normal S1 and S2. No murmurs, rubs or gallops. Lungs--clear bilaterally, no respiratory distress, no accessory muscle use. Abdomen--normal bowel sounds and soft. abdominal pain in left upper and lower quadrant with soft palpation, no guarding. Mild pain on right LQ. colostomy bag in situ Extremities--no cyanosis or clubbing. No edema. Dermatologic--normal skin turgor, normal color, no abnormal lymph nodes, no rash. Neurologic--cranial nerves II through XII grossly intact. Rheumatologic--normal range of motion. Psychiatric--normal affect. Results & Data Results & Data ([facility]) Vital Signs (Past 12 Hours) Vital Signs Temp Pulse Pulse Resp BP Pulse Ox 09/19/21 19:53 36.8 C 92 H 18 92/54 L 98 09/19/21 16:00 89 09/19/21 15:11 36.6 C 86 20 97/58 L 99 09/19/21 11:09 36.9 C 102 H 20 95/58 L 100 09/19/21 10:30 88 PG Care Time/CCT Total # of Minutes Spent Total Time Spent with Patient: Total time spent is greater than 50% in coordination of care (as documented) at patient's floor/unit and/or counseling patient: Coding Level of Care Code 17542 Subseq Hosp Care Lvl 2 Diagnoses Diffuse abdominal pain R10.84 Atrial fibrillation with rapid ventricular response I48.91 Chronic heart failure with preserved ejection fraction I50.32 Leukocytosis D72.829 Leukocytosis type: unspecified CML (chronic myeloid leukemia) C92.10 Hypothyroidism E03.9 Chronic kidney disease, stage 3 (moderate) N18.3 COPD (chronic obstructive pulmonary disease) J43.9 COPD type: emphysema Emphysema type: unspecified GERD (gastroesophageal reflux disease) K21.9 Hypotension I95.9 Bright red rectal bleeding K62.5 (1) Leukocytosis Leukocytosis type: unspecified Qualified Code(s): D72.829 - Elevated white blood cell count, unspecified (2) COPD (chronic obstructive pulmonary disease) COPD type: emphysema Emphysema type: unspecified Qualified Code(s): J43.9 - Emphysema, unspecified
[2021-09-20] MEDS: LEVOTHYROXINE SODIUM 50 MCG TABLET PO SCH (07:27)
[2021-09-20 07:45] LABS: Hematocrit (blood only) 24.8 % (37-47); Hemoglobin 7.8 g/dL (12.0-16.0); Mean Corpuscular Hemoglobin 26.5 pg (25-34); Mean Corpuscular Hgb Conc 31.5 g/dL (32-36); Mean Corpuscular Volume 84.4 fL (80-100); Mean Platelet Volume 11.5 fL (7.4-10.4); Nucleated RBC # (auto) 0.29 K/uL (0-0); Nucleated RBC % (auto) 0.4 %; Platelet Count 855 K/uL (130-400); RDW Coefficient of Variation 19.3 % (11.5-14.5); RDW Standard Deviation 56.1 fL (36.4-46.3); Red Blood Count 2.94 M/uL (4.2-5.4); White Blood Count 71.82 K/uL (4.8-10.8)
[2021-09-20 08:19] LABS: BUN Creatinine Ratio 24.6 (10-20); Calcium 8.5 mg/dl (8.5-10.1); Creatinine Clr Calc Pharmacy 30.5 ml/min; Est GFR (Non-African American) 24.1 ml/min; Potassium 3.7 mmol/L (3.5-5.1)
[2021-09-20] MEDS: ASPIRIN 81 MG ECTAB PO SCH (09:18)
[2021-09-20] MEDS: DICYCLOMINE HCL 20 MG TAB PO SCH ×2 (09:19→13:13)
[2021-09-20] MEDS: METOPROLOL SUCC 25MG EXT REL TAB PO SCH (09:19)
[2021-09-20] MEDS: CHOLECALCIFEROL 1,000 UNITS 25 MCG TAB PO SCH (09:19)
[2021-09-20] MEDS: HYDROCORTISONE ACETATE 25 MG SUPP PR SCH (09:19)
[2021-09-20] MEDS: MIDODRINE HCL 10 MG TAB PO SCH ×2 (09:19→13:13)
[2021-09-20] MEDS: SODIUM CHLORIDE 0.65% NA SOLN 45 ML (OCEAN) NAE SCH ×2 (09:20→13:15)
[2021-09-20] MEDS: PANTOprazole 40 MG TAB PO SCH (09:20)
[2021-09-20] MEDS: POLYETHYLENE (MIRALAX) 17 GM PACK PO SCH ×2 (09:20→13:15)
[2021-09-20] MEDS: FLUTICASONE/VILANTEROL 100/25MCG 14 PUFFS/INHALER INH SCH (09:21)
[2021-09-20] MEDS: TORSEMIDE 20 MG TAB PO SCH (09:21)
[2021-09-20] MEDS: UMECLIDINIUM BROMIDE 62.5MCG/BLISTER 7 PUFFS/INHALER INH SCH (09:21)
[2021-09-20] MEDS: DULoxetine HCL 20 MG CAP PO SCH (09:22)
[2021-09-20] MEDS: ACETAMINOPHEN 500 MG TAB PO SCH ×2 (09:27→13:14)
[2021-09-20] MEDS: traMADol HCL 50 MG TABLET PO PRN (09:28)
[2021-09-20 11:25] VITALS: BP 107/67; PULSE 96; TEMP 98.6; O2SAT 98
[2021-09-20] MEDS ORDERED: IRON SUCROSE 200 MG in 0.9 % SODIUM CHLORIDE 100 ML IV ONE (11:30)
--- NOTE | 2021-09-24 19:55 | Discharge Summary ---
Date of Service September 20, 2021 Admission HPI Per Admitting Provider Marycarmen Schilling is a 66 year old medically complex female who presents to the ER with 2-3 days of abdominal pain and rectal bleeding. She has an end colostomy after perforation in April. More recently she had a spontaneous retroperitoneal hematoma In May/June requiring [place] [facility] [place] X[place] and was advised not to restart on this. She reports nothing has come out of her colostomy since yesterday. Taking docusate since yesterday at noon. No nausea or vomiting. In the ER CT A/P showed no acute infectious pathology or bowel obstruction. She has a history of CML and WBC and Plt are significant raised but this is mostly neutrophils rather than blast cells. ER Physician discussed case with GI and recommended MiraLAX for the constipation noted on CT but need for transfer at this time. She was referred to medicine for admission and ongoing management of this. Principal Diagnosis diffuse abdominal pain Discharge Exam The patient is awake, alert and oriented 3, well developed and well nourished, normocephalic and atraumatic, lying in bed and in no acute distress. HEENT--PERRL, EOMI, mucous membranes and oropharynx mildly dry Neck--supple. No JVD. No bruits. Thyroid normal, trachea midline, no adenopathy. Heart--normal S1 and S2. No murmurs, rubs or gallops. Lungs--clear bilaterally, no respiratory distress, no accessory muscle use. Abdomen--normal bowel sounds and soft. abdominal pain in left upper and lower quadrant with soft palpation, no guarding. Mild pain on right LQ. colostomy bag in situ Extremities--no cyanosis or clubbing. No edema. Dermatologic--normal skin turgor, normal color, no abnormal lymph nodes, no rash. Neurologic--cranial nerves II through XII grossly intact. Rheumatologic--normal range of motion. Psychiatric--normal affect. Discharge Data Allergies Allergy/AdvReac Type Severity Reaction Status Date / Time diltiazem Allergy Severe SHORTNESS Verified 09/24/21 15:14 OF BREATH AND SWELLING OF HANDS AND FACE nut - unspecified Allergy Severe Wheezing Verified 09/24/21 15:14 peanut Allergy Severe Wheezing Verified 09/24/21 15:14 Yeast Allergy Severe Wheezing Verified 09/24/21 15:14 Penicillins Allergy Intermediate WELTS IN Verified 09/24/21 15:14 MOUTH AND SPREAD TO BODY adhesive Allergy Mild BLISTERS Verified 09/24/21 15:14 latex Allergy Mild RASH Verified 09/24/21 15:14 indomethacin Allergy Unknown per pulm Verified 09/24/21 15:14 note tree and shrub pollen Allergy Unknown ELM Verified 09/24/21 15:14 TREE-RASH BLISYERS HANDS ARMS FEET allopurinol Allergy Unknown Unverified 09/24/21 15:14 febuxostat [From Uloric] Allergy Unknown Verified 09/24/21 15:14 oxycodone Allergy Unknown Verified 09/24/21 15:14 codeine AdvReac Mild N&V&GI PAIN Verified 09/24/21 15:14 paroxetine AdvReac Mild GI SYMPTOMS Verified 09/24/21 15:14 varenicline AdvReac Mild GI Verified 09/24/21 15:14 SYMPTOMS,HALLUCINATIONS linaclotide [From Linzess] AdvReac Unknown CAUSED Verified 09/24/21 15:14 ASTHMA ATTACK Consultations 09/14/21 16:04 ED Decision to Admit Stat 09/16/21 10:22 Consult Gastroenterology Routine Procedures Performed Operation Date: 09/17/21 18:00 Actual Procedures p Esophagogastroduodenoscopy - Kalia G. Case, DO s Colonoscopy - Kalia G. Case, DO Ordered Studies 09/14/21 13:52 CT abd pelvis wo con Stat 09/16/21 16:59 CT abd pelvis oral con only Stat Hospital Course (1) Diffuse abdominal pain: Much improved was likely due to constipation patient had multiple output from her colostomy after miralax and says her pain is better Will continue miralax CT abdomen and Pelvis did not show any acute pathology Added bentyl. hold bumex due to low BP. consult GI: completed colonscopy and upper GI scopes. Patient no longer having bleeding Hemoglobin stable for past 48 hours. ok to discharge. will closely monitor hemoglobin. (2) Atrial fibrillation with rapid ventricular response: Currently rate controlled Continue metoprolol succinate 12.5mg PO BID and Amiodarone Not on anticoagulation due to recent spontaneous retroperitoneal bleed may need to be restarted as an outpatient. (3) Chronic heart failure with preserved ejection fraction: Patient appears compensated Continue home medications Monitor I/O, daily weight (4) Leukocytosis: Suspect from CML. Does not appear to be blast crisis from CBC differential however will get peripheral smear in AM. (5) CML (chronic myeloid leukemia): As above. On no current treatment for this. Intolerant to multiple treatment in the past per prior heme notes Follow up with hematology as outpatient No source of infection at this time, will d/c further antibiotics (6) Hypothyroidism: TSH WNL Continue levothyroxine 50 mcg PO daily (7) Chronic kidney disease, stage 3 (moderate): Cr improving, 1.67 today, close to baseline (8) COPD (chronic obstructive pulmonary disease): No acute exacerbation Continue Symbicort and Anoro Ellipta or hospital formulary equivalent (9) GERD (gastroesophageal reflux disease): Switch omeprazole to pantoprazole per hospital formulary (10) Hypotension: Continue her usual midodrine 10mg TID (11) Bright red rectal bleeding: On repeat visit, Patient had bleeding at ostomy site. appreciate input from GI. will obtain ct scan of abd/pelvis with po contrast. hold IV contrast due to GIOVANA. Acute blood loss Anemia BLEEDING appears to have stopped. however patient has anemia. required one unit of PRBC. will recommend outpatient monitoring. VTE Prophylaxis - no chemical prophylaxis due to prior retroperitoneal bleed Total Time Total Time Spent Total Time Spent (In Minutes): 32 Discharge Plan Discharge Items Patient Disposition: Home - Home Health Services Reason For Visit: A FIB RVR, CONSTIPATION Discharge Diagnosis: A Fib, RVR, GI bleed Condition on Discharge: Fair Activity: Resume your previous activity Non-emergency contact: Primary Care Provider Call non-emergency contact if: you have any medication questions Follow-up/Referrals: Ok Galo MD [Primary Care Provider] - Diet: Low Sodium (2gm) Addtl Attending Provider Instructions: Blood work on Thursday to recheck CBC with home health. Dx: Anemia recommend close followup with PCP in 1-2 weeks. If bleeding returns, please come back to the hospital. Due to recent bleeding will only continue aspirin but will hold stronger blood thinners to prevent stroke from blood clots forming in the heart from atrial fibrillation. You will likely need to restart this in the future due to risk of stroke. Will defer to PCP. Pending Studies at Discharge: Yes Studies:: CBC w/o diff on Thursday with Home health dx: anemia Stand-Alone Forms: My [facility], Smoking Cessation Medications and DC Order Prescriptions: New dicyclomine 20 mg Tablet 20 mg PO QID PRN (Reason: Abdominal Pain) 10 Days Qty: 20 RF: 0 pantoprazole 40 mg Tablet,Delayed Release (Dr/Ec) 40 mg PO BID Qty: 60 RF: 0 hydrocortisone acetate 30 mg suppository 30 mg HI BID Qty: 20 RF: 0 Continued budesonide-formoterol [Symbicort] 160-4.5 mcg/actuation HFA aerosol inhaler 2 puff INHALATION BID Qty: 10.2 RF: 5 montelukast 10 mg tablet 10 mg PO HS Qty: 30 RF: 5 metoprolol succinate 50 mg tablet extended release 24 hr 12.5 mg PO BID RF: 0 Incruse Ellipta 62.5 mcg/actuation blister with device 1 inh inhalation DAILY RF: 0 levothyroxine 50 mcg tablet 50 mcg PO DAILY Qty: 90 RF: 3 atorvastatin 20 mg tablet 20 mg PO HS Qty: 90 RF: 3 promethazine 25 mg tablet 25 mg PO TID PRN (Reason: nausea and vomiting) Qty: 90 RF: 5 midodrine 10 mg tablet 10 mg PO TID Qty: 90 RF: 3 aspirin [Adult Aspirin Regimen] 81 mg tablet,delayed release (DR/EC) 81 mg PO QAM RF: 0 tramadol 50 mg tablet 100 mg PO Q8 PRN (Reason: lower abdominal pain) Qty: 180 RF: 1 cholecalciferol (vitamin D3) 25 mcg (1,000 unit) Tablet 25 mcg PO BID RF: 0 acetaminophen 325 mg Tablet 650 mg PO Q4 PRN (Reason: Pain, Mild) RF: 0 sodium chloride [Saline Nasal] 0.65 % Aerosol,[place] 1 spray INTRANASAL TID RF: 0 Discontinued omeprazole 20 mg capsule,delayed release(DR/EC) 20 mg PO DAILY Qty: 90 RF: 3 No Action duloxetine 20 mg capsule,delayed release(DR/EC) 40 mg PO QAM Qty: 60 RF: 11 docusate sodium 100 mg Capsule 100 mg PO BID RF: 0 torsemide 20 mg tablet 40 mg PO QAM RF: 0 lidocaine 5 % adhesive patch,medicated 1 patch TOP DAILY PRN (Reason: pain) Qty: 15 RF: 0 Discharge Orders: Discharge Order (Routine); Ordered 09/20/21 Ordered By: Cecilio Rodriguez Admission Data Admit Date/Time: 09/14/21 16:27 Attending Provider: Cecilio Rodriguez Admit Provider: Mikey Anderson Primary Care Provider: Ok Galo Other Providers: Mikey Anderson ; Morgan Bojorquez Other Interventions: Discharge Summary Assessment (RN) Last Done: 09/20/21 13:00 Coding Level of Care Code D/C DAY MANAGEMENT >30 MINS Diagnoses Diffuse abdominal pain R10.84 Atrial fibrillation with rapid ventricular response I48.91 Chronic heart failure with preserved ejection fraction I50.32 Leukocytosis D72.829 Leukocytosis type: unspecified CML (chronic myeloid leukemia) C92.10 Hypothyroidism E03.9 Chronic kidney disease, stage 3 (moderate) N18.3 COPD (chronic obstructive pulmonary disease) J43.9 COPD type: emphysema Emphysema type: unspecified GERD (gastroesophageal reflux disease) K21.9 Hypotension I95.9 Bright red rectal bleeding K62.5
== END 2021-09-20 14:15 | disposition home health service (06) | DRG 392 ==
LOC: ED 12:27 → SUATTDRO 16:27 → EDINP 16:27 → 2N 16:44

== ENCOUNTER 2021-11-10 05:28 | Inpatient (IN) ==
--- NOTE | 2021-11-10 05:51 | Emergency Department Note ---
Impression & Plan Hematuria, Anemia, Atrial fibrillation with rapid ventricular response Admit to the [facility] ED Provider Note NAME: JONATHAN BOYLE AGE: 66 SEX: F ARRIVES VIA: Ambulance INFORMANT: Patient and EMS ED PROVIDER(S): Rosa Gorman DO CHIEF COMPLAINT: Abdominal pain PLAN: Disposition: Admit to the [facility] Condition: Guarded MEDICAL DECISION MAKING: This is a 66-year-old female patient who presents to the emergency department with severe abdominal pain and hematuria. The patient developed some hematuria then started to pass large blood clots and developed severe lower abdominal pain. Patient has a history of leukemia and called EMS. Patient has a history of chronic anemia with normal hemoglobin around 7.5 but with such significant blood loss from the latter she has dropped her hemoglobin into the sixes. She was slightly hypotensive and in atrial fibrillation with a rapid ventricular response. I felt this was secondary to the patient's blood loss. A Shahid catheter has been placed for continuous bladder irrigation at this time. She has been typed and crossed for 1 unit of packed red blood cells and consented for transfusion. Patient had a previous CT scan of the abdomen/pelvis in 09/2021 which evaluated her bladder at that time. I have discussed the case with the [facility] Hospitalist and they will evaluate for further management. Triage Nursing notes reviewed and agree with them. Additional history obtained from EMS Prior medical records reviewed Vital Signs: reviewed and remarkable for hypotension and tachycardia Differential diagnosis: Cystitis, pyelonephritis, blood loss anemia, cardiac dysrhythmia, UTI ER treatment provided: Three-way Shahid catheter for continuous bladder irrigation Diagnostics interpreted by me: Cardiac Monitoring: Sinus tachycardia at 130 Twelve-lead EKG: Atrial fibrillation with rapid ventricular response at a rate of 121. There was no ST segment elevation or signs of ischemia. There is no ectopy. Laboratory studies: See below HPI: 66/F arrives for evaluation of abdominal pain and hematuria. The patient developed some hematuria and started to pass large blood clots while developing lower abdominal pain. When she does pass a large blood clot, some of the pain does seem to subside. Patient's blood pressure seemed to drop at times. ROS: See above HPI for pertinent positives & negatives. A total of 10 systems reviewed and were otherwise negative. PAST MEDICAL HISTORY:See Below PAST SURGICAL HISTORY:See Below FAMILY HISTORY:See Below SOCIAL HISTORY:See Below HOME MEDICATIONS:See list ALLERGIES:See list VITALS:See Below PHYSICAL EXAMINATION: HEENT: Head - normocephalic and atraumatic Pupils are equal, round, and reactive to light. Extraocular eye muscles are intact, and sclera are anicteric. Nose - moist nasal mucosa without discharge. Mouth - moist buccal mucosa. Oropharynx is nonerythematous and there is no tonsillar exudate or edema noted. Neck: Supple; no cervical lymphadenopathy or nuchal rigidity Heart: Regular rate and rhythm. There is a normal S1 and S2 with no murmurs, clicks, or gallops appreciated. Lungs: Clear to auscultation bilaterally with no wheezes, rales, or rhonchi. Abdomen: Soft, significant tenderness to palpation in the suprapubic region with colostomy in place. There were normal bowel sounds. Nondistended, with good bowel sounds. There are no palpable pulsatile masses or hepatosplenomegaly. There is no guarding, rigidity, or rebound noted. Extremities: No evidence of cyanosis, clubbing, or edema. There are easily palpable peripheral pulses. Skin: Extremely pale, warm and dry with good turgor and no rashes. ED COURSE: Times/Reassessments: 0530: Patient was evaluated in room A 10. A complete histo ry and physical was performed. Previous electronic medical records were reviewed. Laboratory studies were drawn as above. An order was placed for continuous cardiac monitoring. The patient was in a sinus tachycardia at a rate of 130. Nursing staff establish a second IV lock and placed a three-way Shahid catheter for irrigation of the bladder. Patient began to receive a 500 cc bolus of normal saline solution. Patient had a twelve-lead EKG obtained as described above I discussed the case with the [facility] hospitalist and they will evaluate for further management. The patient was typed and crossed for 1 unit of packed red blood cells. The patient remained hemodynamically stable. Rosa Gorman DO Past Med/Surg History Medical History Anxiety Asthma Atrial fibrillation on xarelto---follows with Dr. 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 CML (chronic myelocytic leukemia) F/U DR [facility] Depression Diabetes mellitus, type 2 DIET MANAGED GERD (gastroesophageal reflux disease) Hyperlipidemia Hypertension Hypothyroidism Iron deficiency anemia Kidney stones HX Lung cancer, lower lobe 2017--left--sx, chemo On anticoagulant therapy On home oxygen therapy 2L n/c continuous Sleep apnea NO LONGER USING CPAP-USES ONLY OXYGEN CONTINUOUSLY SOBOE (shortness of breath on exertion) Stress incontinence in female Temporomandibular joint disorder PAIN BILAT-HAS NEVER LOCKED Surgical History History of appendectomy History of bronchoscopy 2017 History of cardiac cath 11/2017 @ [facility]--no stents History of cholecystectomy History of colonoscopy History of dilatation and curettage History of esophagogastroduodenoscopy (EGD) History of lobectomy of lung lower left lobe 2016 @ [facility] History of open reduction and internal fixation (ORIF) procedure R upper thigh x2--pins/rods in place History of tooth extraction all teeth History of total left knee replacement (TKR) History of total right knee replacement (TKR) Family History Sister Family history of reaction to anesthesia "had an allergic reaction", not sure what happened Arthritis Family history of diabetes mellitus Heart disease Hypertension Mother Family history of diabetes mellitus Myocardial infarction Heart disease Hypertension age 63 due to ND Grandmother Family history of diabetes mellitus maternal Family/Other Family history of diabetes mellitus maternal uncle/maternal aunts Colorectal cancer Family/Other Family hx of colon cancer paternal cousin Father age 91 Gout Denies family history of Crohn's disease Ulcerative colitis Social History Smoking Status: Unknown if ever smoked Tobacco Type: Cigarettes Age Started Using Tobacco: 8; Age Quit Using Tobacco: 62; Cigarettes Per Day: 2pks; Second Hand Exposure: No; Hx Alcohol Use: No Hx Substance Use: No Preferred Language: Czech Communication Ability: Effective Visual Impairment: No Limitations Hearing Ability: Normal Barrel Burner Required: No Beliefs That Will Affect Care: None marital status: / marital status details: twice; from 1st ; 2nd Current Living Situation: Family Current Living Situation Comment: lives in [place] current occupational status: retired current occupation: former nurse's aid How many Children do You have: 1 Other Information That Helps Us Care for You: No Feels Safe at Home: Yes Safety Concerns: Feels Safe At This Time Childhood Exposure to Second-Hand Smoke: No during the past year weight has: remained stable Dental Care, Regularly: No Physical Activity Frequency: Does not Exercise Seatbelt Use: always Sunscreen Use: No Assistive Devices: Glasses and Oxygen - Continuous Allergies Allergies Allergy/AdvReac Type Severity Reaction Status Date / Time diltiazem Allergy Severe SHORTNESS Verified 11/10/21 07:20 OF BREATH AND SWELLING OF HANDS AND FACE nut - unspecified Allergy Severe Wheezing Verified 11/10/21 07:20 peanut Allergy Severe Wheezing Verified 11/10/21 07:20 Yeast Allergy Severe Wheezing Verified 11/10/21 07:20 Penicillins Allergy Intermediate WELTS IN Verified 11/10/21 07:20 MOUTH AND SPREAD TO BODY adhesive Allergy Mild BLISTERS Verified 11/10/21 07:20 latex Allergy Mild RASH Verified 11/10/21 07:20 indomethacin Allergy Unknown per pulm Verified 11/10/21 07:20 note tree and shrub pollen Allergy Unknown ELM Verified 11/10/21 07:20 TREE-RASH BLISYERS HANDS ARMS FEET allopurinol Allergy Unknown Unverified 11/10/21 07:20 febuxostat [From Uloric] Allergy Unknown Verified 11/10/21 07:20 oxycodone Allergy Unknown Verified 11/10/21 07:20 codeine AdvReac Mild N&V&GI PAIN Verified 11/10/21 07:20 paroxetine AdvReac Mild GI SYMPTOMS Verified 11/10/21 07:20 varenicline AdvReac Mild GI Verified 11/10/21 07:20 SYMPTOMS,HALLUCINATIONS linaclotide [From Linzess] AdvReac Unknown CAUSED Verified 11/10/21 07:20 ASTHMA ATTACK Home Meds Home Medications Medication Instructions Recorded Confirmed acetaminophen 325 mg tablet 650 mg PO Q4 PRN 05/28/21 11/10/21 cholecalciferol (vitamin D3) 25 25 mcg PO BID 05/28/21 11/10/21 mcg (1,000 unit) tablet sodium chloride 0.65 % nasal spray 1 spray INTRANASAL TID PRN 05/28/21 11/10/21 aerosol (Saline Nasal) umeclidinium 62.5 mcg/actuation 1 inh INHALATION DAILY 08/13/21 11/10/21 blister powder for inhalation (Incruse Ellipta) aspirin 81 mg tablet,delayed 81 mg PO QAM 08/22/21 11/10/21 release (Adult Aspirin Regimen) docusate sodium 100 mg capsule 100 mg PO BID 09/24/21 11/10/21 torsemide 20 mg tablet 40 mg PO QAM 09/24/21 11/10/21 metoprolol tartrate 25 mg tablet 12.5 mg PO BID 11/10/21 11/10/21 Previous Rx's Medication Instructions Recorded budesonide-formoterol HFA 160 2 puff INHALATION BID #10.2 gm 11/15/20 mcg-4.5 mcg/actuation aerosol inhaler (Symbicort) montelukast 10 mg tablet 10 mg PO HS #30 tab 04/03/21 atorvastatin 20 mg tablet 20 mg PO HS #90 tab 08/22/21 levothyroxine 50 mcg tablet 50 mcg PO DAILY #90 tab 08/22/21 midodrine 10 mg tablet 10 mg PO TID #90 tab 08/22/21 promethazine 25 mg tablet 25 mg PO TID PRN #90 tab 08/22/21 tramadol 50 mg tablet 100 mg PO Q8 PRN #180 tab 08/22/21 hydrocortisone acetate 30 mg 30 mg PA BID #20 ea 09/20/21 rectal suppository pantoprazole 40 mg tablet,delayed 40 mg PO BID #60 tab 09/20/21 release duloxetine 20 mg capsule,delayed 40 mg PO QAM #60 cap 09/24/21 release lidocaine 5 % topical patch 1 patch TOP DAILY PRN #15 ea 09/24/21 Results & Data (ED) Vital Signs Vital Signs - 24 hr 11/10/21 05:34 11/10/21 07:01 Temperature 36.8 C Temperature Source Oral Pulse Rate 126 H Pulse Rate [Apical] 129 H Pulse Rhythm Irregular Pulse Rhythm [Apical] Irregular Respiratory Rate 16 19 Respiratory Effort / Characteristics Non-Labored Non-Labored Spontaneous Respiratory Depth Normal Normal Respiratory Pattern Regular Blood Pressure 84/58 L Blood Pressure [Right Arm] 96/69 L Blood Pressure Mean 66 Blood Pressure Mean [Right Arm] 78 Blood Pressure Position Semi-fowlers Pulse Oximetry 100 100 Oxygen Delivery Method Nasal Cannula Nasal Cannula Oxygen Flow Rate 2 2 Sepsis Recent Fever Within 48 Hours No Sepsis New/Unexplained Change in Mental Status No Sepsis Action Taken by Nursing Physician Notified Laboratory Data Result diagrams: 11/11/21 07:29 11/11/21 07:29 Lab Results 11/10/21 11/10/21 11/10/21 Range/Units 05:45 05:45 05:45 WBC 58.29 H* (4.8-10.8) K/uL RBC 2.49 L (4.2-5.4) M/uL Hgb 6.7 L* (12.0-16.0) g/dL Hct 21.9 L (37-47) % MCV 88.0 (80-100) fL MCH 26.9 (25-34) pg MCHC 30.6 L (32-36) g/dL RDW Std Deviation 57.9 H (36.4-46.3) fL RDW Coeff of Bruce 18.6 H (11.5-14.5) % Plt Count 1169 H* (130-400) K/uL MPV 11.3 H (7.4-10.4) fL Neutrophils % (Manual) 74.5 % Lymphocytes % (Manual) 5.3 % Monocytes % (Manual) 0.9 % Eosinophils % (Manual) 1.8 % Basophils % (Manual) 9.6 % Metamyelocytes % (Man) 3.5 % Myelocytes % (Man) 4.4 % Neutrophils # (Manual) 43.43 H (1.4-6.5) K/uL Total Absolute Neuts 43.43 H (1.4-6.5) K/uL Lymphocytes # (Manual) 3.09 (1.2-3.4) K/uL Total Abs Lymphocytes 3.09 (1.2-3.4) K/uL Monocytes # (Manual) 0.52 (0.11-0.59) K/uL Eosinophils # (Manual) 1.05 H (0-0.5) K/uL Basophils # (Manual) 5.60 H (0-0.2) K/uL Metamyelocytes # (Man) 2.04 H (0-0) K/uL Myelocytes # (Manual) 2.56 H (0-0) K/uL Polychromasia 1+ Hypochromasia Present Anisocytosis Present Target Cells 1+ PT 12.5 H (9.0-12.0) Seconds INR 1.3 H (0.9-1.1) APTT 31.6 H (21.0-31.0) Seconds PTT Ratio 1.2 Sodium 138 (136-145) mmol/L Potassium 4.0 (3.5-5.1) mmol/L Chloride 103 (98-107) mmol/L Carbon Dioxide 25 (21-32) mmol/L Anion Gap 10.0 (3-11) BUN 58 H (7-18) mg/dl Creatinine 1.88 H (0.6-1.2) mg/dl Est Cr Clr Drug Dosing 32.2 ml/min Est GFR ( Amer) 31.3 ml/min Est GFR (Non-Af Amer) 27.0 ml/min BUN/Creatinine Ratio 30.6 H (10-20) Glucose 115 H (70-99) mg/dl Calcium 8.8 (8.5-10.1) mg/dl Total Bilirubin 0.4 (0.2-1) mg/dl AST 20 (15-37) U/L ALT 12 (12-78) Alkaline Phosphatase 127 H (45-117) U/L Troponin I < 0.015 (0-0.045) ng/ml Total Protein 5.7 L (6.4-8.2) gm/dl Albumin 2.1 L (3.4-5.0) gm/dl Globulin 3.6 (2.5-4.0) gm/dl Albumin/Globulin Ratio 0.6 L (0.9-2) Lipase 66 L (73-393) U/L Urine Color Urine Appearance (Clear) Urine pH (4.5-7.5) Ur Specific Brimson (1.000-1.030) Urine Protein (Negative) Urine Glucose (UA) (Negative) Urine Ketones (Negative) Urine Blood (Negative) Urine Nitrite (Negative) Urine Bilirubin (Negative) Urine Urobilinogen (Negative) Ur Leukocyte Esterase (Negative) Urine RBC (0-4) /hpf Urine WBC (0-5) /hpf Ur Epithelial Cells (0-5) /lpf Urine Bacteria (Negative) SARS-CoV-2, RNA, NAAT (NEGATIVE) Blood Type Antibody Screen Crossmatch 11/10/21 11/10/21 11/10/21 Range/Units 06:12 07:00 07:13 WBC (4.8-10.8) K/uL RBC (4.2-5.4) M/uL Hgb (12.0-16.0) g/dL Hct (37-47) % MCV (80-100) fL MCH (25-34) pg MCHC (32-36) g/dL RDW Std Deviation (36.4-46.3) fL RDW Coeff of Bruce (11.5-14.5) % Plt Count (130-400) K/uL MPV (7.4-10.4) fL Neutrophils % (Manual) % Lymphocytes % (Manual) % Monocytes % (Manual) % Eosinophils % (Manual) % Basophils % (Manual) % Metamyelocytes % (Man) % Myelocytes % (Man) % Neutrophils # (Manual) (1.4-6.5) K/uL Total Absolute Neuts (1.4-6.5) K/uL Lymphocytes # (Manual) (1.2-3.4) K/uL Total Abs Lymphocytes (1.2-3.4) K/uL Monocytes # (Manual) (0.11-0.59) K/uL Eosinophils # (Manual) (0-0.5) K/uL Basophils # (Manual) (0-0.2) K/uL Metamyelocytes # (Man) (0-0) K/uL Myelocytes # (Manual) (0-0) K/uL Polychromasia Hypochromasia Anisocytosis Target Cells PT (9.0-12.0) Seconds INR (0.9-1.1) APTT (21.0-31.0) Seconds PTT Ratio Sodium (136-145) mmol/L Potassium (3.5-5.1) mmol/L Chloride (98-107) mmol/L Carbon Dioxide (21-32) mmol/L Anion Gap (3-11) BUN (7-18) mg/dl Creatinine (0.6-1.2) mg/dl Est Cr Clr Drug Dosing ml/min Est GFR ( Amer) ml/min Est GFR (Non-Af Amer) ml/min BUN/Creatinine Ratio (10-20) Glucose (70-99) mg/dl Calcium (8.5-10.1) mg/dl Total Bilirubin (0.2-1) mg/dl AST (15-37) U/L ALT (12-78) Alkaline Phosphatase (45-117) U/L Troponin I (0-0.045) ng/ml Total Protein (6.4-8.2) gm/dl Albumin (3.4-5.0) gm/dl Globulin (2.5-4.0) gm/dl Albumin/Globulin Ratio (0.9-2) Lipase (73-393) U/L Urine Color Red Urine Appearance Cloudy A (Clear) Urine pH 7.5 (4.5-7.5) Ur Specific Brimson 1.025 (1.000-1.030) Urine Protein 3+ H (Negative) Urine Glucose (UA) Trace H (Negative) Urine Ketones Negative (Negative) Urine Blood 3+ H (Negative) Urine Nitrite Negative (Negative) Urine Bilirubin Negative (Negative) Urine Urobilinogen Negative (Negative) Ur Leukocyte Esterase Negative (Negative) Urine RBC >30 H (0-4) /hpf Urine WBC >30 H (0-5) /hpf Ur Epithelial Cells 0-5 (0-5) /lpf Urine Bacteria Negative (Negative) SARS-CoV-2, RNA, NAAT NEGATIVE (NEGATIVE) Blood Type A Negative Antibody Screen NEGATIVE Crossmatch See Detail Administered Medications Atorvastatin Calcium (Atorvastatin 20 Mg Tab) 20 mg PO HS JOSÉ LUIS Stop: 12/10/21 20:59 Last Admin: 11/10/21 19:29 Dose: 20 mg Documented by: [id number] Docusate Sodium (Docusate Sodium 100 Mg Cap) 100 mg PO BID JOSÉ LUIS Stop: 12/10/21 10:59 Last Admin: 11/10/21 19:29 Dose: 100 mg Documented by: [id number] Admin: 11/10/21 12:38 Dose: 100 mg Documented by: [id number] Duloxetine HCl (Duloxetine Hcl 20 Mg Cap) 40 mg PO QAM JOSÉ LUIS Stop: 12/10/21 10:59 Last Admin: 11/10/21 12:38 Dose: 40 mg Documented by: [id number] Fluticasone/Vilanterol (Fluticasone/Vilanterol 100/25mcg 14 Puffs/Inhaler) 1 puffs INH DAILY JOSÉ LUIS Stop: 12/10/21 11:29 Last Admin: 11/10/21 12:40 Dose: 1 puffs Documented by: [id number] Hydromorphone HCl (Hydromorphone Inj 0.5 Mg/0.5 Ml Syr) 0.25 mg IV Q4H PRN PRN Reason: Pain Stop: 11/24/21 10:24 Last Admin: 11/10/21 16:49 Dose: 0.25 mg Documented by: [id number] Admin: 11/10/21 12:54 Dose: 0.25 mg Documented by: [id number] Levothyroxine Sodium (Levothyroxine Sodium 50 Mcg Tablet) 50 mcg PO DAILYBB [facility] Stop: 12/10/21 10:59 Last Admin: 11/11/21 06:14 Dose: 50 mcg Documented by: [id number] Admin: 11/10/21 12:40 Dose: 50 mcg Documented by: [id number] Midodrine (Midodrine Hcl 10 Mg Tab) 10 mg PO TID@0800,1200,1700 [facility] Stop: 12/10/21 11:59 Last Admin: 11/10/21 16:43 Dose: 10 mg Documented by: [id number] Admin: 11/10/21 12:41 Dose: 10 mg Documented by: [id number] Miscellaneous (Remove Lidoderm Patch) 1 ea N/A DAILY@2100 [facility] Stop: 12/10/21 20:59 Last Admin: 11/10/21 19:29 Dose: Not Given Documented by: [id number] Montelukast Sodium (Montelukast Sodium 10 Mg Tablet) 10 mg PO HS [facility] Stop: 12/10/21 20:59 Last Admin: 11/10/21 20:14 Dose: 10 mg Documented by: [id number] Pantoprazole Sodium (Pantoprazole 40 Mg Tab) 40 mg PO BID [facility] Stop: 12/10/21 10:59 Last Admin: 11/10/21 19:29 Dose: 40 mg Documented by: [id number] Admin: 11/10/21 12:40 Dose: 40 mg Documented by: [id number] Umeclidinium Bolivar (Umeclidinium Bolivar 62.5mcg/Blister 7 Puffs/Inhaler) 1 puffs INH DAILY [facility] Stop: 12/10/21 10:59 Last Admin: 11/10/21 12:40 Dose: 1 puffs Documented by: [id number] Vitamin D (Cholecalciferol 1,000 Units 25 Mcg Tab) 1,000 units PO BID [facility] Stop: 12/10/21 10:59 Last Admin: 11/10/21 19:29 Dose: 1,000 units Documented by: [id number] Admin: 11/10/21 12:38 Dose: 1,000 units Documented by: [id number] Discontinued Medications Acetaminophen (Acetaminophen 500 Mg Tab) Confirm Administered Dose 1,000 mg .ROUTE .STK-MED ONE Stop: 11/10/21 09:24 Last Admin: 11/10/21 09:24 Dose: 1,000 mg Documented by: [id number] Furosemide (Furosemide Inj 20 Mg/2 Ml Vial) 20 mg IV ONE ONE Stop: 11/10/21 14:57 Last Admin: 11/10/21 15:06 Dose: 20 mg Documented by: [id number] Hydromorphone HCl (Hydromorphone Inj 0.5 Mg/0.5 Ml Syr) 0.25 mg IV NOW STA Stop: 11/10/21 07:38 Last Admin: 11/10/21 08:12 Dose: Not Given Documented by: [id number] Hydromorphone HCl (Hydromorphone Inj 0.5 Mg/0.5 Ml Syr) Confirm Administered Dose 0.5 mg .ROUTE .STK-MED ONE Stop: 11/10/21 07:57 Last Admin: 11/10/21 07:59 Dose: 0.25 mg Documented by: [id number] Ceftriaxone Sodium (Rocephin) 2,000 mg in 70 mls @ 140 mls/hr IV NOW STA Stop: 11/10/21 08:36 Last Infusion: 11/10/21 09:20 Dose: 0 mls/hr Documented by: [id number] Admin: 11/10/21 08:45 Dose: 140 mls/hr Documented by: [id number] Sodium Chloride (Nss 1000ml) 1,000 mls @ 75 mls/hr IV .[id number] JOSÉ LUIS Stop: 11/11/21 00:19 Last Infusion: 11/10/21 22:20 Dose: 0 mls/hr Documented by: [id number] Admin: 11/10/21 16:39 Dose: 75 mls/hr Documented by: [id number] Sodium Chloride (Nss 1000ml) 1,000 mls @ 999 mls/hr IV .Q1H1M ONE Stop: 11/10/21 20:53 Last Infusion: 11/10/21 22:21 Dose: 0 mls/hr Documented by: [id number] Admin: 11/10/21 20:02 Dose: 999 mls/hr Documented by: [id number] Sodium Chloride (Nss 1000ml) 1,000 mls @ 999 mls/hr IV .Q1H1M ONE Stop: 11/10/21 22:55 Last Infusion: 11/10/21 23:23 Dose: 0 mls/hr Documented by: [id number] Admin: 11/10/21 21:59 Dose: 999 mls/hr Documented by: [id number] Albumin Human (Albumin 25% 100 Ml) 25 gm in 100 mls @ 50 mls/hr IV Q2H JOSÉ LUIS Stop: 11/11/21 01:59 Last Infusion: 11/11/21 01:41 Dose: 0 mls/hr Documented by: [id number] Admin: 11/10/21 23:42 Dose: 50 mls/hr Documented by: [id number] Infusion: 11/10/21 23:42 Dose: 50 mls/hr Documented by: [id number] Admin: 11/10/21 22:12 Dose: 50 mls/hr Documented by: [id number] Discharge Plan Visit Data Chief Complaint: Hematuria Stated Complaint: BLOOD IN URINE, LOWER ABD PAIN ED Provider: Rosa Gorman Discharge Problem: Hematuria, Anemia, Atrial fibrillation with rapid ventricular response Patient Disposition: Admitted As Inpatient Discharge Instructions Interventions: ED Discharge Assessment Last Done: 11/10/21 10:36
[2021-11-10 06:23] LABS: Alanine Aminotransferase 12 (12-78); Aspartate Aminotransferase 20 U/L (15-37); BUN Creatinine Ratio 30.6 (10-20); Blood Urea Nitrogen 58 mg/dl (7-18); Calcium 8.8 mg/dl (8.5-10.1); Carbon Dioxide 25 mmol/L (21-32); Chloride 103 mmol/L (98-107); Creatinine Clr Calc Pharmacy 32.2 ml/min; Est GFR (African American) 31.3 ml/min; Glucose 115 mg/dl (70-99); Lipase 66 U/L (73-393); Sodium 138 mmol/L (136-145)
[2021-11-10 06:28] LABS: Alkaline Phosphatase 127 U/L (45-117); Bilirubin,Total 0.4 mg/dl (0.2-1); Hematocrit (blood only) 21.9 % (37-47); Hemoglobin 6.7 g/dL (12.0-16.0); Mean Corpuscular Hemoglobin 26.9 pg (25-34); Mean Corpuscular Hgb Conc 30.6 g/dL (32-36); Mean Platelet Volume 11.3 fL (7.4-10.4); Platelet Count 1169 K/uL (130-400); RDW Coefficient of Variation 18.6 % (11.5-14.5); RDW Standard Deviation 57.9 fL (36.4-46.3); Red Blood Count 2.49 M/uL (4.2-5.4); Total Protein 5.7 gm/dl (6.4-8.2); Troponin I < 0.015 ng/ml (0-0.045); White Blood Count 58.29 K/uL (4.8-10.8)
[2021-11-10 06:33] LABS: ALC (manual) 3.09 K/uL (1.2-3.4); ANC (manual) 43.43 K/uL (1.4-6.5); Anisocytosis Present; Basophils % (manual) 9.6 %; Eosinophils # (manual) 1.05 K/uL (0-0.5); Eosinophils % (manual) 1.8 %; Hypochromasia Present; Lymphocytes # (manual) 3.09 K/uL (1.2-3.4); Lymphocytes % (manual) 5.3 %; Metamyelocytes # (manual) 2.04 K/uL (0-0); Metamyelocytes % (manual) 3.5 %; Monocytes # (manual) 0.52 K/uL (0.11-0.59); Monocytes % (manual) 0.9 %; Myelocytes # (manual) 2.56 K/uL (0-0); Myelocytes % (manual) 4.4 %; Neutrophils # (manual) 43.43 K/uL (1.4-6.5); Neutrophils % (manual) 74.5 %; Polychromasia 1+; Target Cells 1+
[2021-11-10 06:36] LABS: Albumin Globulin Ratio 0.6 (0.9-2); Albumin Level 2.1 gm/dl (3.4-5.0); Globulin 3.6 gm/dl (2.5-4.0)
[2021-11-10] MEDS ORDERED: SODIUM CHLORIDE 0.9% 250 ML IV PRN ×3 (06:51→22:56)
[2021-11-10 07:19] LABS: Appearance Urine Cloudy (Clear); Bilirubin Urine Negative (Negative); Blood Urine 3+ (Negative); Color Urine Red; Glucose Urine UA Trace (Negative); Ketones Urine Negative (Negative); Leukocyte Esterase Urine Negative (Negative); Nitrite Urine Negative (Negative); Protein Urine 3+ (Negative); Specific Gravity Urine 1.025 (1.000-1.030); Urobilinogen Urine Negative (Negative); pH Urine 7.5 (4.5-7.5)
[2021-11-10 07:27] LABS: Epithelial Cell Urine 0-5 /lpf (0-5); RBC Urine >30 /hpf (0-4); WBC Urine >30 /hpf (0-5)
[2021-11-10 07:28] LABS: Bacteria Urine Negative (Negative)
[2021-11-10] MEDS ORDERED: HYDROmorphone INJ 0.5 MG/0.5 ML SYR IV STA (07:37)
--- NOTE | 2021-11-10 07:42 | History & Physical Report ---
Date of Service November 10, 2021 Assessment & Plan (1) Gross hematuria: Plan: Differential dx - renal cyst with rupture/hemorrhage vs UTI vs primary bladder lesion vs other. CT abd/pelvis in 09/2021 showed b/l renal cysts, ?hemorrhagic cysts at that time. No renal stones on that CT. 3-way kelley placed in ER; CBI started. Will send urine for culture. Empiric rocephin 2gm IV daily while awaiting culture. I spoke with Dr Harding - on-call [facility] - who will see in consult. Will keep NPO in the event she needs urological intervention. Tx 1 unit PRBCs due to acute/chronic anemia, active bleeding, and hypotension. Serial H/H's. Defer additional Rx to Dr Harding. (2) Acute on chronic anemia: Plan: Chronic anemia, baseline Hb 7.5 to 9. 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 Now Hb <7. Tx 1 unit PRBCs. Serial H/H's. Acute component 2nd to #3. (3) Acute blood loss anemia: Plan: 2nd to #1. Tx 1 unit PRBCs. Trend CBC. NO GI bleeding via ostomy. (4) Hypotension: Plan: 2nd to active bleeding from bladder. Can't rule out early sepsis. PRBCs. Supportive care. Hold metoprolol. She received IV fluids in ER prior to my assessment with improvement in SBP. Continue midodrine TID. (5) Atrial fibrillation with rapid ventricular response: Plan: She is appropriately tachycardic in light of her hemorrhage. HRs should improve with PRBCs. If following PRBCs the rapid ventricular response continues could consider digoxin IV vs very low-dose IV lopressor/cardizem. Follow for now on telemetry. (6) CML (chronic myeloid leukemia): Plan: Follows with [facility], not on medications for such. Daily CBC while here. (7) Thrombocytosis: Plan: 2nd to #6. Fe deficiency can cause high platelets as well. While here check Fe studies and daily CBC. Unfortunately need to hold asa due to #1. (8) Chronic kidney disease, stage 3 (moderate): Plan: Baseline CrCl about 30. BMP daily. (9) Hypothyroidism: Plan: TSH 09/2021 wnl. Cont synthroid. (10) Hyperlipidemia: Plan: Continue statin. (11) Edema: Plan: Patient states LE edema is at baseline. Edema does look like lymphedema. She does have h/o HFpEF, however, and she has crackles on lung exam. Check cxr. Hold diuretics for now given hypotension. (12) COPD (chronic obstructive pulmonary disease): Plan: with chronic hypoxic resp failure, on home O2. stable. no exacerbation. cont inhalers. (13) Gout: (14) GERD (gastroesophageal reflux disease): Plan: Cont PPI twice daily. (15) Chronic respiratory failure with hypoxia, on home O2 therapy: Plan: stable, without exacerbation. (16) Hypertension: Plan: hold metoprolol. cont midodrine. (17) Diabetes mellitus, type 2: Plan: previous HbA1Cs <6%. simply check BSGs 4 times daily and see what her glycemic control is. add insulin if necessary. (18) DVT prophylaxis: Plan: SCDs. Chemical means contraindicated in light of #1. Plan: pt's history d/w Dr Harding from urology History of Present Illness Chief Complaint: lower abdominal pain, hematuria & clots Primary Care Provider: Ok Galo MD 66yo female with chronic hypoxic respiratory failure 2nd to COPD on home O2 2 Liters, h/o lung cancer s/p LLL lobectomy, CKD stage 3, CML not on treatment, chronic anemia, T2DM not on treatment, gout, and permanent a.atiya presents with the acute onset of lower abdominal pain with gross hematuria and passage of multiple clots starting last night about dinner time. She continued to pass the bloody urine and clots for the remainder of the evening and throughout the night. Her pain was constant but she had waves of severe pain. Pain is across the entire lower abdomen but worst in the suprapubic region. No fevers but has had chills. States she has dyspnea but it is chronic and unchanged. No nausea or emesis. Up until yesterday evening had been eating/drinking. Denies flank pain. Denies back pain, although she had an episode of severe pain in her back about 1-1.5 weeks ago that was self-limited. Additionally, she had 1 episode of gross hematuria on Thursday of this week but it only occurred once and resolved with her urine returning to normal color later that day. With respect to her CML she sees the [facility], Ms Shante Kelsey. Has not seen them in several months. She is not on treatment for the CML. Allergies Allergy/AdvReac Type Severity Reaction Status Date / Time diltiazem Allergy Severe SHORTNESS Verified 11/10/21 07:20 OF BREATH AND SWELLING OF HANDS AND FACE nut - unspecified Allergy Severe Wheezing Verified 11/10/21 07:20 peanut Allergy Severe Wheezing Verified 11/10/21 07:20 Yeast Allergy Severe Wheezing Verified 11/10/21 07:20 Penicillins Allergy Intermediate WELTS IN Verified 11/10/21 07:20 MOUTH AND SPREAD TO BODY adhesive Allergy Mild BLISTERS Verified 11/10/21 07:20 latex Allergy Mild RASH Verified 11/10/21 07:20 indomethacin Allergy Unknown per pulm Verified 11/10/21 07:20 note tree and shrub pollen Allergy Unknown ELM Verified 11/10/21 07:20 TREE-RASH BLISYERS HANDS ARMS FEET allopurinol Allergy Unknown Unverified 11/10/21 07:20 febuxostat [From Uloric] Allergy Unknown Verified 11/10/21 07:20 oxycodone Allergy Unknown Verified 11/10/21 07:20 codeine AdvReac Mild N&V&GI PAIN Verified 11/10/21 07:20 paroxetine AdvReac Mild GI SYMPTOMS Verified 11/10/21 07:20 varenicline AdvReac Mild GI Verified 11/10/21 07:20 SYMPTOMS,HALLUCINATIONS linaclotide [From Linzess] AdvReac Unknown CAUSED Verified 11/10/21 07:20 ASTHMA ATTACK Home Medications Medication Instructions Recorded Confirmed Type budesonide-formoterol HFA 160 2 puff INHALATION BID #10.2 gm 11/15/20 11/10/21 Rx mcg-4.5 mcg/actuation aerosol inhaler (Symbicort) montelukast 10 mg tablet 10 mg PO HS #30 tab 04/03/21 11/10/21 Rx acetaminophen 325 mg tablet 650 mg PO Q4 PRN 05/28/21 11/10/21 History cholecalciferol (vitamin D3) 25 25 mcg PO BID 05/28/21 11/10/21 History mcg (1,000 unit) tablet sodium chloride 0.65 % nasal spray 1 spray INTRANASAL TID PRN 05/28/21 11/10/21 History aerosol (Saline Nasal) umeclidinium 62.5 mcg/actuation 1 inh INHALATION DAILY 08/13/21 11/10/21 History blister powder for inhalation (Incruse Ellipta) aspirin 81 mg tablet,delayed 81 mg PO QAM 08/22/21 11/10/21 History release (Adult Aspirin Regimen) atorvastatin 20 mg tablet 20 mg PO HS #90 tab 08/22/21 11/10/21 Rx levothyroxine 50 mcg tablet 50 mcg PO DAILY #90 tab 08/22/21 11/10/21 Rx midodrine 10 mg tablet 10 mg PO TID #90 tab 08/22/21 11/10/21 Rx promethazine 25 mg tablet 25 mg PO TID PRN #90 tab 08/22/21 11/10/21 Rx tramadol 50 mg tablet 100 mg PO Q8 PRN #180 tab 08/22/21 11/10/21 Rx hydrocortisone acetate 30 mg 30 mg ID BID #20 ea 09/20/21 11/10/21 Rx rectal suppository pantoprazole 40 mg tablet,delayed 40 mg PO BID #60 tab 09/20/21 11/10/21 Rx release docusate sodium 100 mg capsule 100 mg PO BID 09/24/21 11/10/21 History duloxetine 20 mg capsule,delayed 40 mg PO QAM #60 cap 09/24/21 11/10/21 Rx release lidocaine 5 % topical patch 1 patch TOP DAILY PRN #15 ea 09/24/21 11/10/21 Rx torsemide 20 mg tablet 40 mg PO QAM 09/24/21 11/10/21 History metoprolol tartrate 25 mg tablet 12.5 mg PO BID 11/10/21 11/10/21 History Past Med/Surg History Medical History (Updated 11/10/21 @ 08:21 by Mikey Sutherland) Anxiety Asthma Atrial fibrillation on xarelto---follows with Dr. 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 CML (chronic myelocytic leukemia) F/U DR [facility] Depression Diabetes mellitus, type 2 DIET MANAGED GERD (gastroesophageal reflux disease) Hyperlipidemia Hypertension Hypothyroidism Iron deficiency anemia Kidney stones HX Lung cancer, lower lobe 2017--left--sx, chemo On anticoagulant therapy On home oxygen therapy 2L n/c continuous Sleep apnea NO LONGER USING CPAP-USES ONLY OXYGEN CONTINUOUSLY SOBOE (shortness of breath on exertion) Stress incontinence in female Temporomandibular joint disorder PAIN BILAT-HAS NEVER LOCKED Surgical History History of appendectomy History of bronchoscopy 2017 History of cardiac cath 11/2017 @ [facility]--no stents History of cholecystectomy History of colonoscopy History of dilatation and curettage History of esophagogastroduodenoscopy (EGD) History of lobectomy of lung lower left lobe 2017 @ [facility] History of open reduction and internal fixation (ORIF) procedure R upper thigh x2--pins/rods in place History of tooth extraction all teeth History of total left knee replacement (TKR) History of total right knee replacement (TKR) Family History (Updated 11/10/21 @ 08:09 by Mikey Sutherland) Sister Family history of reaction to anesthesia "had an allergic reaction", not sure what happened Arthritis Family history of diabetes mellitus Heart disease Hypertension Mother Family history of diabetes mellitus Myocardial infarction Heart disease Hypertension age 63 due to [place] Grandmother Family history of diabetes mellitus maternal Family/Other Family history of diabetes mellitus maternal uncle/maternal aunts Colorectal cancer Family/Other Family hx of colon cancer paternal cousin Father age 91 Gout Denies family history of Crohn's disease Ulcerative colitis Social History (Updated 11/10/21 @ 07:42 by Mikey Suthelrand) Smoking Status: Unknown if ever smoked Tobacco Type: Cigarettes Age Started Using Tobacco: 8; Age Quit Using Tobacco: 62; Cigarettes Per Day: 2pks; Second Hand Exposure: No; Hx Alcohol Use: Yes Alcohol Intake Frequency Comment: socially, mainly on holidays Hx Substance Use: No Preferred Language: [place] Citizen Communication Ability: Effective Visual Impairment: No Limitations Hearing Ability: Normal Chief Medical Director Required: No Beliefs That Will Affect Care: None marital status: / marital status details: twice; from 1st ; 2nd Current Living Situation: Alone Current Living Situation Comment: lives in [place] current occupational status: retired current occupation: former nurse's aid How many Children do You have: 1 Feels Safe at Home: Yes Childhood Exposure to Second-Hand Smoke: No during the past year weight has: remained stable Dental Care, Regularly: No Physical Activity Frequency: Does not Exercise Seatbelt Use: always Sunscreen Use: No Assistive Devices: Glasses, Oxygen - Continuous and Walker Review of Systems Review of Systems: Gen - no fevers, but did have chills overnight; normal eating/drinking until last pm Eyes - since her colostomy formation she has had decrease in vision HENT - no sore throat, no congestion Neck - no pain CV - no chest pain Pulm - chronic cough, chronic dyspnea on exertion; reports she can't manipulate some of her inhalers due to severe arthritis & gout in hands GI - no nausea or emesis; no ostomy output Thursday; had ostomy output normally on Thursday; passing flatus through the stoma, however; severe lower abd pain; no stomal bleeding - dysuria, bladder pain/spasm, gross hematuria with clots Musculo - chronic joint pains Skin - no rash Neuro - no recent headache Endo - has diabetes but doesn't test her sugars nor take meds Psych - chronic anxiety Physical Exam Physical Exam: Gen - very uncomfortable, pain comes in "waves" c/w bladder spasm; a/o x 3, pallor Eyes - left pupil larger than right pupil, both reactive HETN - MM dry, throat clear Neck - no JVD, lymphadenopathy cervical region b/l Heart - tachy, irregularly irregular, s1 s2, no murmur Lungs - basilar rales on Right, clear on left, no increased work of breathing Abd - very tender b/l lower quadrants & suprapubic region; ostomy left abdomen, scant brown stool (liquid) in bag, stoma clean/healthy-appearing; soft, no HSM, multiple scars on abdominal wall Ext - 2-3+ lymphedema b/l, pulses 2+ b/l Skin - no rash; pallor present Neuro - no facial droop; strength 5/5 x 4 exts Psych - a/o x 3 - kelley in place; moderately bloody urine Results & Data Results & Data ([facility]) Vital Signs (Past 12 Hours) Vital Signs Temp Pulse Pulse Resp BP BP Pulse Ox 11/10/21 07:01 129 H 19 96/69 L 100 11/10/21 05:34 36.8 C 126 H 16 84/58 L 100 Laboratory Results Laboratory Results - last 24 hr 11/10/21 11/10/21 11/10/21 05:45 05:45 05:45 WBC 58.29 H* RBC 2.49 L Hgb 6.7 L* Hct 21.9 L MCV 88.0 MCH 26.9 MCHC 30.6 L RDW Std Deviation 57.9 H RDW Coeff of Bruce 18.6 H Plt Count 1169 H* MPV 11.3 H Neutrophils % (Manual) 74.5 Lymphocytes % (Manual) 5.3 Monocytes % (Manual) 0.9 Eosinophils % (Manual) 1.8 Basophils % (Manual) 9.6 Metamyelocytes % (Man) 3.5 Myelocytes % (Man) 4.4 Neutrophils # (Manual) 43.43 H Total Absolute Neuts 43.43 H Lymphocytes # (Manual) 3.09 Total Abs Lymphocytes 3.09 Monocytes # (Manual) 0.52 Eosinophils # (Manual) 1.05 H Basophils # (Manual) 5.60 H Metamyelocytes # (Man) 2.04 H Myelocytes # (Manual) 2.56 H Polychromasia 1+ Hypochromasia Present Anisocytosis Present Target Cells 1+ PT Pending INR Pending APTT Pending PTT Ratio Pending Sodium 138 Potassium 4.0 Chloride 103 Carbon Dioxide 25 Anion Gap 10.0 BUN 58 H Creatinine 1.88 H Est Cr Clr Drug Dosing 32.2 Est GFR ( Amer) 31.3 Est GFR (Non-Af Amer) 27.0 BUN/Creatinine Ratio 30.6 H Glucose 115 H Calcium 8.8 Total Bilirubin 0.4 AST 20 ALT 12 Alkaline Phosphatase 127 H Troponin I < 0.015 Total Protein 5.7 L Albumin 2.1 L Globulin 3.6 Albumin/Globulin Ratio 0.6 L Lipase 66 L Urine Color Urine Appearance Urine pH Ur Specific Vancleave Urine Protein Urine Glucose (UA) Urine Ketones Urine Blood Urine Nitrite Urine Bilirubin Urine Urobilinogen Ur Leukocyte Esterase Urine RBC Urine WBC Ur Epithelial Cells Urine Bacteria SARS-CoV-2, RNA, NAAT Blood Type Antibody Screen Crossmatch 11/10/21 11/10/21 11/10/21 06:12 07:00 07:13 WBC RBC Hgb Hct MCV MCH MCHC RDW Std Deviation RDW Coeff of Bruce Plt Count MPV Neutrophils % (Manual) Lymphocytes % (Manual) Monocytes % (Manual) Eosinophils % (Manual) Basophils % (Manual) Metamyelocytes % (Man) Myelocytes % (Man) Neutrophils # (Manual) Total Absolute Neuts Lymphocytes # (Manual) Total Abs Lymphocytes Monocytes # (Manual) Eosinophils # (Manual) Basophils # (Manual) Metamyelocytes # (Man) Myelocytes # (Manual) Polychromasia Hypochromasia Anisocytosis Target Cells PT INR APTT PTT Ratio Sodium Potassium Chloride Carbon Dioxide Anion Gap BUN Creatinine Est Cr Clr Drug Dosing Est GFR ( Amer) Est GFR (Non-Af Amer) BUN/Creatinine Ratio Glucose Calcium Total Bilirubin AST ALT Alkaline Phosphatase Troponin I Total Protein Albumin Globulin Albumin/Globulin Ratio Lipase Urine Color Red Urine Appearance Cloudy A Urine pH 7.5 Ur Specific Vancleave 1.025 Urine Protein 3+ H Urine Glucose (UA) Trace H Urine Ketones Negative Urine Blood 3+ H Urine Nitrite Negative Urine Bilirubin Negative Urine Urobilinogen Negative Ur Leukocyte Esterase Negative Urine RBC >30 H Urine WBC >30 H Ur Epithelial Cells 0-5 Urine Bacteria Negative SARS-CoV-2, RNA, NAAT NEGATIVE Blood Type A Negative Antibody Screen NEGATIVE Crossmatch See Detail Code Status & VTE Plan Code Status DNR/DNI PG Care Time/CCT Total # of Minutes Spent Total Time Spent with Patient: Total time spent is greater than 50% in coordination of care (as documented) at patient's floor/unit and/or counseling patient: Coding Level of Care Code 16948 Initial Inpt Care Lvl 3 Diagnoses Gross hematuria R31.0 Acute on chronic anemia D64.9 Acute blood loss anemia D62 Hypotension I95.9 Atrial fibrillation with rapid ventricular response I48.91 CML (chronic myeloid leukemia) C92.10 Thrombocytosis D75.839 Chronic kidney disease, stage 3 (moderate) N18.3 Hypothyroidism E03.9 Hyperlipidemia E78.5 Hyperlipidemia type: unspecified Edema R60.9 COPD (chronic obstructive pulmonary disease) J43.9 COPD type: emphysema Emphysema type: unspecified Gout [id number].[id number] Chronicity: chronic Gout etiology: unspecified cause Gout site: multiple sites GERD (gastroesophageal reflux disease) K21.9 Chronic respiratory failure with hypoxia, on home O2 therapy J96.11; Z99.81 Hypertension I10 Hypertension type: essential hypertension Diabetes mellitus, type 2 E11.9 DVT prophylaxis Z29.9 (1) Gout Chronicity: chronic Gout etiology: unspecified cause Gout site: multiple sites Qualified Code(s): M1A.09X0 - Idiopathic chronic gout, multiple sites, without tophus (tophi) (2) Hyperlipidemia Hyperlipidemia type: unspecified Qualified Code(s): E78.5 - Hyperlipidemia, unspecified (3) COPD (chronic obstructive pulmonary disease) COPD type: emphysema Emphysema type: unspecified Qualified Code(s): J43.9 - Emphysema, unspecified (4) Hypertension Hypertension type: essential hypertension Qualified Code(s): I10 - Essential (primary) hypertension
[2021-11-10] MEDS ORDERED: HYDROmorphone INJ 0.5 MG/0.5 ML SYR ONE (07:56)
[2021-11-10] MEDS ORDERED: cefTRIAXone SODIUM 2,000 MG/70 ML BAG IV STA (08:07)
[2021-11-10 08:26] LABS: INR 1.3 (0.9-1.1); Partial Thromboplastin Ratio 1.2; Partial Thromboplastin Time 31.6 Seconds (21.0-31.0); Prothrombin Time 12.5 Seconds (9.0-12.0)
--- NOTE | 2021-11-10 08:48 | XRay Report ---
XR chest 1V portable HISTORY: Crackles within the right lung base. COMPARISON: Chest 09/14/2021. FINDINGS: No pneumothorax. There are trace bilateral pleural effusions. There is moderate enlargement of the cardiac silhouette, unchanged. There are low lung volumes. There is mild central pulmonary va scular congestion without overt edema. IMPRESSION: Cardiomegaly, mild congestive change, and trace bilateral pleural effusions. This is similar to the p rior study. ACT 112: Negative or not required by law. Electronically signed by: John Land M.D. 11/10/2021 8:47 AM
[2021-11-10] MEDS ORDERED: ACETAMINOPHEN 500 MG TAB ONE (09:23)
[2021-11-10] MEDS ORDERED: ACETAMINOPHEN 500 MG TAB PO PRN (10:25)
[2021-11-10] MEDS ORDERED: ONDANSETRON INJ 2 MG/ML 2 ML VIAL IV PRN (10:25)
[2021-11-10] MEDS ORDERED: SODIUM CHLORIDE 0.65% NA SOLN 45 ML (OCEAN) PRN (10:25)
[2021-11-10] MEDS ORDERED: SODIUM CHLORIDE 0.9% 1000ML 1,000 ML IV SCH (11:00)
[2021-11-10] MEDS ORDERED: LIDOCAINE 5% 1 PATCH TD PRN (11:00)
--- NOTE | 2021-11-10 12:08 | CT Scan Report ---
ABDOMEN AND PELVIS CT WITHOUT CONTRAST CT DOSE: 938.83 mGy.cm HISTORY: severe lower abd pain; gross hematuria TECHNIQUE: Multiaxial CT images of the abdomen and pelvis were performed without contrast. A dose lo wering technique was utilized adhering to the principles of ALARA. COMPARISON STUDY: Abdomen and pelvis CT 09/16/2021. FINDINGS: Mild emphysema noted at the lung bases. Suture material within the left lower lobe consiste nt with prior wedge resection. Trace bilateral pleural effusions, unchanged. No pneumoperitoneum. No pneumatosis. Partially visualized hardware within the proximal right femur. Chronic changes again not ed at the bilateral sacroiliac joints. There is mild elevation of the left hemidiaphragm, unchanged. Moderate to severe body wall edema has progressed. There is associated presacral/perirectal edema. Ch olecystectomy. Stable linear hypodensity within the right hepatic lobe inferiorly. This may represent scarring. The unenhanced spleen and adrenal glands are unremarkable. Stable 2 cm hypodense lesion wi thin the pancreatic body. This favors a cystic neoplasm. Multiple bilateral renal hypodense and hyper dense lesions are also unchanged. These are incompletely characterized on this noncontrast study but statistically represent simple and hyperdense cysts. There is moderate bilateral hydroureteronephrosi s. No renal or ureteral stones identified. No retroperitoneal lymphadenopathy. Outside plaque within the normal caliber abdominal aorta. A 9 mm right common iliac lymph node on image 266 remains stable. The uterus and bilateral ovaries are unremarkable. Markedly distended bladder primarily filled with hyperdense material suggesting blood clot. There is a Shahid catheter within the bladder. Suboptimal e valuation for bowel pathology due to the lack of intravenous and oral contrast. However, there is no definite bowel wall thickening or obstruction. There is a left lower quadrant colostomy with evidence for prior left colectomy.. IMPRESSION: 1. Markedly distended bladder which is primarily filled with hyperdense material suggesting blood josephine t. Recommend follow-up nonemergent cystoscopy to exclude the possibly of underlying bladder mass whic h could be obscured by the large blood clot. There is a Shahid catheter which appears in good position within the bladder. 2. Moderate bilateral hydroureteronephrosis which is likely secondary to the distended bladder. No re nal or ureteral stones identified. 3. Moderate to severe body wall edema which has progressed. 4. Additional findings as described above. ACT 112: Negative or not required by law. Electronically signed by: John Land M.D. 11/10/2021 12:06 PM
[2021-11-10] MEDS: DULoxetine HCL 20 MG CAP PO SCH (12:38)
[2021-11-10] MEDS: DOCUSATE SODIUM 100 MG CAP PO SCH ×2 (12:38→19:29)
[2021-11-10] MEDS: CHOLECALCIFEROL 1,000 UNITS 25 MCG TAB PO SCH ×2 (12:38→19:29)
[2021-11-10] MEDS: LEVOTHYROXINE SODIUM 50 MCG TABLET PO SCH (12:40)
[2021-11-10] MEDS: PANTOprazole 40 MG TAB PO SCH ×2 (12:40→19:29)
[2021-11-10] MEDS: UMECLIDINIUM BROMIDE 62.5MCG/BLISTER 7 PUFFS/INHALER INH SCH (12:40)
[2021-11-10] MEDS: FLUTICASONE/VILANTEROL 100/25MCG 14 PUFFS/INHALER INH SCH (12:40)
[2021-11-10] MEDS: MIDODRINE HCL 10 MG TAB PO SCH ×2 (12:41→16:43)
[2021-11-10] MEDS: HYDROmorphone INJ 0.5 MG/0.5 ML SYR IV PRN ×2 (12:54→16:49)
[2021-11-10] MEDS ORDERED: FUROSEMIDE INJ 20 MG/2 ML VIAL IV ONE (14:56)
[2021-11-10 16:04] LABS: Hematocrit (blood only) 24.7 % (37-47); Hemoglobin 7.8 g/dL (12.0-16.0); Mean Corpuscular Hgb Conc 31.6 g/dL (32-36); Mean Corpuscular Volume 88.5 fL (80-100); Mean Platelet Volume 11.1 fL (7.4-10.4); Platelet Count 1008 K/uL (130-400); RDW Coefficient of Variation 16.9 % (11.5-14.5); RDW Standard Deviation 53.5 fL (36.4-46.3); Red Blood Count 2.79 M/uL (4.2-5.4); White Blood Count 53.23 K/uL (4.8-10.8)
[2021-11-10 16:05] LABS: ALC (manual) 1.38 K/uL (1.2-3.4); ANC (manual) 40.77 K/uL (1.4-6.5); Anisocytosis Present; Basophils # (manual) 4.15 K/uL (0-0.2); Basophils % (manual) 7.8 %; Hypochromasia Present; Lymphocytes # (manual) 1.38 K/uL (1.2-3.4); Lymphocytes % (manual) 2.6 %; Metamyelocytes # (manual) 4.63 K/uL (0-0); Metamyelocytes % (manual) 8.7 %; Monocytes % (manual) 1.7 %; Myelocytes # (manual) 1.38 K/uL (0-0); Myelocytes % (manual) 2.6 %; Neutrophils # (manual) 40.77 K/uL (1.4-6.5); Neutrophils % (manual) 76.6 %; Polychromasia 1+
--- NOTE | 2021-11-10 18:08 | Urology Consultation ---
Date of Consultation November 10, 2021 Assessment & Plan (1) Gross hematuria: Patient presented to the ER with severe episode of bleed coming from bladder. Had a large amount of gross hematuria with large amount of clots expelled. Patient had catheter placed in ER and had some mild relief. Continue to have issues throughout the day on three-way irrigation with 20 [place] catheter. Patient underwent exchange of catheter 24 [place]ian hematuria 3-way catheter. Was aggressively irrigated by myself and a large amount of clot material was able to be aspirated and removed. Patient's urine did improve and clear. Was reattached CBI and is now running a light pink color with CBI on. Patient has had history of gross hematuria. Has had frequent UTIs and UTI issues in the past. Has been dealing with few weeks of issues that have been increasing in severity. Has also had issues with spontaneous bleed especially recurrent nosebleeds. Has been associated to the patient's known history of chronic leukemia. Patient has also had a history of retroperitoneal bleed. At that time was on a blood thinner. Is currently only taking low-dose aspirin for blood thinning. Has a complicated medical surgical history. This was all reviewed and summarized above. Has had multiple surgeries. Has never had cystoscopy. Did have a history of kidney stones. No considerable family history. Did talk about different potential causes of gross hematuria including ulceration as well as tumors. Discussed need for further assessment.. Patient has multiple cysts of the kidneys and will likely need repeat imaging at some point however at this point plan will be to allow continued CBI and close m onitoring for resolution of issues. Patient's severe spasms discomfort pressure in episodes of incontinence have improved drastically after irrigation. Patient had extremely large amount of clot within bladder on imaging. CT scan was reviewed interpreted by myself. Will need further assessment of cyst as mentioned above and will likely need close monitoring due to severity of issues. Had tolerated transfusions. We will need to watch bleeding overnight. Plan will be to allow patient to have diet this evening. Will reassess in the morning with possibility of clot evacuation and possible fulguration/resection depending on how well patient does. Concern for continued clot material within the bladder and will need to monitor. Patient come for medical and surgical histories reviewed and summarized above. All imaging was reviewed interpreted by myself. Reviewed patient's labs with a elevated creatinine as well as a significant acute blood loss anemia. Please see patient's lab section for full report. We will plan to monitor closely. Call if any major changes or issues. Could consider more urgent/emergent intervention if patient does continue to have significant blood loss or if severely worsens or develops fever. Otherwise we will plan for reassessment the morning (2) Acute on chronic anemia: (3) Acute blood loss anemia: (4) Atrial fibrillation with rapid ventricular response: (5) CML (chronic myeloid leukemia): History of Present Illness Attending Physician: Mikey Sutherland History of Present Illness Consult for urinary issues with hematuria. Patient presented with severe pain and major episode of bleeding from bladder. Had the developed a severe spasm and had a large amount of blood expel. Patient had been placed on CBI with catheter. Had mild relief. Patient was assessed and underwent aggressive hand irrigation by myself. Issues have drastically improved especially from spasms. Is now to the point that she has mild to moderate discomfort in pelvis and groin going to back and side in waves. This is drastically improved. Is dealing with acute illness. Has been dealing with a number of weeks of ongoing UTI-like issues. Has been having burning irritation. Has been deconditioned from this. Has decreased mobility significantly with acute issues. Denies significant previous episodes of hematuria requiring irrigation however has had gross hematuria in the past. Also had a spontaneous retroperitoneal bleed which may be related to cysts of the kidneys. Patient was unsure of the actual source. Patient has a leukemia and is working with oncology for management. Has had a major bleed issues with considerable issues of nosebleed and the previous history of retroperitoneal bleed. Have previously been on blood thinners. Currently is taking only aspirin as a blood thinner. Has had some minor urinary issues in the past. Has had frequent UTIs in the past. No severe nausea or vomiting. Currently no fevers. No significant family history of malignancy. Patient does have history of stones. Had issues in the past with this. Allergies Allergy/AdvReac Type Severity Reaction Status Date / Time diltiazem Allergy Severe SHORTNESS Verified 11/10/21 07:20 OF BREATH AND SWELLING OF HANDS AND FACE nut - unspecified Allergy Severe Wheezing Verified 11/10/21 07:20 peanut Allergy Severe Wheezing Verified 11/10/21 07:20 Yeast Allergy Severe Wheezing Verified 11/10/21 07:20 Penicillins Allergy Intermediate WELTS IN Verified 11/10/21 07:20 MOUTH AND SPREAD TO BODY adhesive Allergy Mild BLISTERS Verified 11/10/21 07:20 latex Allergy Mild RASH Verified 11/10/21 07:20 indomethacin Allergy Unknown per pulm Verified 11/10/21 07:20 note tree and shrub pollen Allergy Unknown ELM Verified 11/10/21 07:20 TREE-RASH BLISYERS HANDS ARMS FEET allopurinol Allergy Unknown Unverified 11/10/21 07:20 febuxostat [From Uloric] Allergy Unknown Verified 11/10/21 07:20 oxycodone Allergy Unknown Verified 11/10/21 07:20 codeine AdvReac Mild N&V&GI PAIN Verified 11/10/21 07:20 paroxetine AdvReac Mild GI SYMPTOMS Verified 11/10/21 07:20 varenicline AdvReac Mild GI Verified 11/10/21 07:20 SYMPTOMS,HALLUCINATIONS linaclotide [From Linzess] AdvReac Unknown CAUSED Verified 11/10/21 07:20 ASTHMA ATTACK Home Medications Medication Instructions Recorded Confirmed Type budesonide-formoterol HFA 160 2 puff INHALATION BID #10.2 gm 11/15/20 11/10/21 Rx mcg-4.5 mcg/actuation aerosol inhaler (Symbicort) montelukast 10 mg tablet 10 mg PO HS #30 tab 04/03/21 11/10/21 Rx acetaminophen 325 mg tablet 650 mg PO Q4 PRN 05/28/21 11/10/21 History cholecalciferol (vitamin D3) 25 25 mcg PO BID 05/28/21 11/10/21 History mcg (1,000 unit) tablet sodium chloride 0.65 % nasal spray 1 spray INTRANASAL TID PRN 05/28/21 11/10/21 History aerosol (Saline Nasal) umeclidinium 62.5 mcg/actuation 1 inh INHALATION DAILY 08/13/21 11/10/21 History blister powder for inhalation (Incruse Ellipta) aspirin 81 mg tablet,delayed 81 mg PO QAM 08/22/21 11/10/21 History release (Adult Aspirin Regimen) atorvastatin 20 mg tablet 20 mg PO HS #90 tab 08/22/21 11/10/21 Rx levothyroxine 50 mcg tablet 50 mcg PO DAILY #90 tab 08/22/21 11/10/21 Rx midodrine 10 mg tablet 10 mg PO TID #90 tab 08/22/21 11/10/21 Rx promethazine 25 mg tablet 25 mg PO TID PRN #90 tab 08/22/21 11/10/21 Rx tramadol 50 mg tablet 100 mg PO Q8 PRN #180 tab 08/22/21 11/10/21 Rx hydrocortisone acetate 30 mg 30 mg [place] BID #20 ea 09/20/21 11/10/21 Rx rectal suppository pantoprazole 40 mg tablet,delayed 40 mg PO BID #60 tab 09/20/21 11/10/21 Rx release docusate sodium 100 mg capsule 100 mg PO BID 09/24/21 11/10/21 History duloxetine 20 mg capsule,delayed 40 mg PO QAM #60 cap 09/24/21 11/10/21 Rx release lidocaine 5 % topical patch 1 patch TOP DAILY PRN #15 ea 09/24/21 11/10/21 Rx torsemide 20 mg tablet 40 mg PO QAM 09/24/21 11/10/21 History metoprolol tartrate 25 mg tablet 12.5 mg PO BID 11/10/21 11/10/21 History Patient History Medical History Anxiety Asthma Atrial fibrillation on xarelto---follows with Dr. 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 CML (chronic myelocytic leukemia) F/U DR PATEL[facility] Depression Diabetes mellitus, type 2 DIET MANAGED GERD (gastroesophageal reflux disease) Hyperlipidemia Hypertension Hypothyroidism Iron deficiency anemia Kidney stones HX Lung cancer, lower lobe 2017--left--sx, chemo On anticoagulant therapy On home oxygen therapy 2L n/c continuous Sleep apnea NO LONGER USING CPAP-USES ONLY OXYGEN CONTINUOUSLY SOBOE (shortness of breath on exertion) Stress incontinence in female Temporomandibular joint disorder PAIN BILAT-HAS NEVER LOCKED Surgical History History of appendectomy History of bronchoscopy 2016 History of cardiac cath 11/2017 @ [facility]--no stents History of cholecystectomy History of colonoscopy History of dilatation and curettage History of esophagogastroduodenoscopy (EGD) History of lobectomy of lung lower left lobe 2017 @ [facility] History of open reduction and internal fixation (ORIF) procedure R upper thigh x2--pins/rods in place History of tooth extraction all teeth History of total left knee replacement (TKR) History of total right knee replacement (TKR) Family History Sister Family history of reaction to anesthesia "had an allergic reaction", not sure what happened Arthritis Family history of diabetes mellitus Heart disease Hypertension Mother Family history of diabetes mellitus Myocardial infarction Heart disease Hypertension age 63 due to [place] Grandmother Family history of diabetes mellitus maternal Family/Other Family history of diabetes mellitus maternal uncle/maternal aunts Colorectal cancer Family/Other Family hx of colon cancer paternal cousin Father age 91 Gout Denies family history of Crohn's disease Ulcerative colitis Social History Smoking Status: Unknown if ever smoked Tobacco Type: Cigarettes Age Started Using Tobacco: 8; Age Quit Using Tobacco: 62; Cigarettes Per Day: 2pks; Second Hand Exposure: No; Hx Alcohol Use: No Hx Substance Use: No Preferred Language: Romanian Communication Ability: Effective Visual Impairment: No Limitations Hearing Ability: Normal Barrel Loader Required: No Beliefs That Will Affect Care: None marital status: / marital status details: twice; from 1st ; 2nd Current Living Situation: Family Current Living Situation Comment: lives in [place] current occupational status: retired current occupation: former nurse's aid How many Children do You have: 1 Other Information That Helps Us Care for You: No Feels Safe at Home: Yes Safety Concerns: Feels Safe At This Time Childhood Exposure to Second-Hand Smoke: No during the past year weight has: remained stable Dental Care, Regularly: No Physical Activity Frequency: Does not Exercise Seatbelt Use: always Sunscreen Use: No Assistive Devices: Glasses Review of Systems Review of Systems: All systems reviewed & are unremarkable except as noted in HPI & below Physical Exam Physical Exam: General: Alert and oriented x 3 in no acute distress. Patient is well nourished and well kept. HEENT: Normocephalic Atraumatic. Inspection normal. Cranial Nerves 2-12 Grossly intact. Nares are clear. Neck is supple. Normal inspection of face. Normal inspection of neck. Neurologic: No deficits on inspection. Baseline for motor function and sensory. Psychologic: Normal affect. Respiratory: Nonlabored. No use of accessory muscles. No tachypnea or dyspnea. Cardiovascular: No tachycardia Skin: [place] and Dry. No rashes or visible lesions. Extremities: Moving without issues. No motor deficits on inspection Lymphatics: Moderate edema. Especially of lower extremities Abdomen: Obese and moderately distended. Moderate suprapubic tenderness with some guarding. dark red urine with clots with 20 Namibian three-way catheter in place. This was exchanged to a 24 [place] three-way catheter and after aggressive clot irrigation is now a light pink color without clot Results & Data ([facility]) Vital Signs (Past 12 Hours) Vital Signs Temp Pulse Pulse Resp BP BP Pulse Ox 11/10/21 17:44 36.7 C 119 H 16 102/67 94 11/10/21 14:00 36.5 C 122 H 89 22 93/54 L 121/64 95 11/10/21 13:30 136 H 25 H 93/62 L 100 11/10/21 13:00 101 H 13 93/62 L 96 11/10/21 12:30 120 H 16 95/55 L 100 11/10/21 12:15 125 H 13 94/63 L 100 11/10/21 12:10 36.7 C 116 H 22 91/61 L 100 11/10/21 11:15 127 H 17 94/63 L 100 11/10/21 11:00 132 H 19 76/56 L 100 11/10/21 10:45 11/10/21 10:18 36.6 C 115 H 16 99/69 L 100 11/10/21 09:25 36.4 C L 124 H 16 105/81 99 11/10/21 09:00 125 H 18 97/69 L 98 11/10/21 08:55 36.7 C 135 H 18 105/63 100 11/10/21 08:40 36.6 C 121 H 18 107/57 L 100 11/10/21 08:24 36.6 C 113 H 14 87/62 L 100 11/10/21 07:01 129 H 19 96/69 L 100 Pulse Ox 11/10/21 17:44 11/10/21 14:00 11/10/21 13:30 11/10/21 13:00 11/10/21 12:30 11/10/21 12:15 11/10/21 12:10 11/10/21 11:15 11/10/21 11:00 11/10/21 10:45 100 11/10/21 10:18 11/10/21 09:25 11/10/21 09:00 11/10/21 08:55 11/10/21 08:40 11/10/21 08:24 11/10/21 07:01 PG Care Time/CCT Total # of Minutes Spent Total Time Spent with Patient: Total time spent is greater than 50% in coordination of care (as documented) at patient's floor/unit and/or counseling patient: Coding Level of Care Code 27600 Inpt Consult Level 5 Diagnoses Gross hematuria R31.0 Acute on chronic anemia D64.9 Acute blood loss anemia D62 Atrial fibrillation with rapid ventricular response I48.91 CML (chronic myeloid leukemia) C92.10
[2021-11-10] MEDS: ATORVASTATIN 20 MG TAB PO SCH (19:29)
[2021-11-10] MEDS ORDERED: SODIUM CHLORIDE 0.9% 1000ML 1,000 ML IV ONE ×2 (19:53→21:55)
[2021-11-10] MEDS: MONTELUKAST SODIUM 10 MG TABLET PO SCH (20:14)
[2021-11-10] MEDS: ALBUMIN 25% 100 mL 25 GM/100 ML VIAL IV SCH ×2 (22:12→23:42)
[2021-11-10 22:34] LABS: Hematocrit (blood only) 21.9 % (37-47)
[2021-11-10 22:52] LABS: Albumin Level 1.8 gm/dl (3.4-5.0); BUN Creatinine Ratio 26.4 (10-20); Creatinine Clr Calc Pharmacy 27.8 ml/min; Est GFR (African American) 26.1 ml/min; Est GFR (Non-African American) 22.5 ml/min; Potassium 4.1 mmol/L (3.5-5.1)
[2021-11-10 22:55] LABS: Albumin Globulin Ratio 0.6 (0.9-2); Bilirubin,Total 0.4 mg/dl (0.2-1); Globulin 2.9 gm/dl (2.5-4.0); Total Protein 4.7 gm/dl (6.4-8.2)
--- NOTE | 2021-11-11 06:13 | Electrocardiogram Report ---
Test Reason : Blood Pressure : / mmHG Vent. Rate : 121 BPM Atrial Rate : 072 BPM P-R Int : 000 ms QRS Dur : 084 ms QT Int : 320 ms P-R-T Axes : 000 001 162 degrees QTc Int : 454 ms Atrial fibrillation with rapid ventricular response with premature ventricular or aberrantly conducte d complexes Anterolateral infarct (cited on or before 24-SEP-2021) Nonspecific T wave abnormality Abnormal ECG When compared with ECG of 24-SEP-2021 14:15, No significant change was found Confirmed by Patrice Louie ([id number]) on 11/11/2021 6:13:03 AM Referred By: REFERRED SELF Confirmed By:Patrice Louie
[2021-11-11] MEDS: LEVOTHYROXINE SODIUM 50 MCG TABLET PO SCH (06:14)
[2021-11-11 07:56] LABS: Hematocrit (blood only) 25.3 % (37-47); Hemoglobin 8.3 g/dL (12.0-16.0); Mean Corpuscular Hgb Conc 32.8 g/dL (32-36); Mean Corpuscular Volume 88.5 fL (80-100); Mean Platelet Volume 11.2 fL (7.4-10.4); Nucleated RBC # (auto) 0.23 K/uL (0-0); Nucleated RBC % (auto) 0.5 %; Platelet Count 794 K/uL (130-400); RDW Coefficient of Variation 15.9 % (11.5-14.5); Red Blood Count 2.86 M/uL (4.2-5.4); White Blood Count 46.25 K/uL (4.8-10.8)
[2021-11-11 08:06] LABS: BUN Creatinine Ratio 25.5 (10-20); Calcium 7.8 mg/dl (8.5-10.1); Creatinine Clr Calc Pharmacy 25.7 ml/min; Est GFR (African American) 23.5 ml/min; Est GFR (Non-African American) 20.3 ml/min
--- NOTE | 2021-11-11 08:15 | Urology Progress Note ---
Date of Service November 11, 2021 Assessment & Plan (1) Gross hematuria: Plan: 66yo F with multiple comorbidities admitted with anemia, gross hematuria. - Plan of care reviewed with Dr. Harding, on-call urologist. - Pt afebrile - Labs reviewed- Wbc 46.25, Hemoglobin 8.3 (1 unit PRBCs given since admit), Creatinine 2.38 (2.18 yesterday) - Continue to trend - Urine culture pending, continues on IV Ceftriaxone. - Kelley intact, draining red urine with CBI on slow-moderate rate. - Maintain kelley catheter, continue CBI. - Given her persistent gross hematuria, will plan to proceed to OR today for Cystoscopy, Clot Evacuation, Possible Resection, Fulguration depending on findings. - Risks and benefits to be reviewed with patient by Dr. Harding. - OR notified. On IV Ceftriaxone. Chest Xray and EKG on chart. Covid test negative. - Keep NPO. - Continue supportive care and close monitoring. - Will continue to follow. Attending note: Patient is continuing to have blood loss. Has considerable gross hematuria. Has improved with CBI but continues to have issues. Concern for continued blood clot versus active bleeding. Discussed different options. Risks and benefits discussed at length for procedure. These include bleeding, infection, injury to surrounding tissues or organs, and risks associated with anesthesia. Patient states understanding and agrees to proceed. Will sign consent and proceed with cystoscopy and possible resection/fulguration and clot evacuation. Admission and Anticipated Discharge Date Admission Date: November 10, 2021 Subjective Pt examined at bedside this morning. Awake, resting in bed on arrival. No acute distress. Pt denies any pain or discomfort at present. She did report having a few bladder spasms this morning with leakage around the catheter. Kelley intact, draining red urine with CBI running on slow-moderate rate. No fevers. Has been NPO. Review of Systems Constitutional: as per Subjective / HPI Genitourinary: as per Subjective / HPI Physical Exam Constitutional: + obese; no acute distress Respiratory: normal respiratory effort; no respiratory distress and no labored breathing Gastrointestinal (Abdomen): Percussion/Palpation: + abdomen tender (Suprapubic tenderness with palpation) and abdomen soft Musculoskeletal: Head/Neck/Chest: normocephalic Skin: No visible rashes or lesions Neurologic: awake Psychiatric: Orientation: alert, oriented x 3 and cooperative Genitourinary: Kelley catheter intact, draining red urine with CBI on slow- moderate rate. Results & Data ([facility]) Vital Signs (Past 12 Hours) Vital Signs Temp Pulse Pulse Resp BP BP Pulse Ox 11/11/21 06:09 36.8 C 112 H 15 74/49 L 96 11/11/21 05:29 36.6 C 119 H 15 74/35 L 94 11/11/21 04:29 36.6 C 122 H 15 92/55 L 93 11/11/21 03:59 36.6 C 114 H 15 87/49 L 95 11/11/21 03:44 36.8 C 113 H 15 79/48 L 96 11/11/21 03:29 36.6 C 112 H 15 87/51 L 93 11/11/21 03:18 36.6 C 112 H 15 87/51 L 93 11/11/21 02:55 36.7 C 114 H 15 80/45 L 94 11/11/21 02:22 125 H 11/11/21 01:55 36.5 C 115 H 15 79/47 L 93 11/11/21 00:55 36.4 C L 114 H 15 72/35 L 95 11/11/21 00:25 36.5 C 128 H 15 76/44 L 94 11/11/21 00:10 36.5 C 127 H 15 65/37 L 96 11/10/21 23:45 36.7 C 123 H 17 69/32 L 97 11/10/21 23:06 36.6 C 118 H 24 77/47 L 100 11/10/21 21:11 115 H 16 77/43 L PG Care Time/CCT Total # of Minutes Spent Total Time Spent with Patient: Total time spent is greater than 50% in coordination of care (as documented) at patient's floor/unit and/or counseling patient: Coding Level of Care Code 98779 Subseq Hosp Care Lvl 2 Diagnoses Gross hematuria R31.0
[2021-11-11] MEDS: CHOLECALCIFEROL 1,000 UNITS 25 MCG TAB PO SCH ×2 (08:45→20:33)
[2021-11-11] MEDS: MIDODRINE HCL 10 MG TAB PO SCH ×3 (08:45→18:16)
[2021-11-11] MEDS: PANTOprazole 40 MG TAB PO SCH ×2 (08:45→20:35)
[2021-11-11] MEDS: DULoxetine HCL 20 MG CAP PO SCH (08:45)
[2021-11-11] MEDS: DOCUSATE SODIUM 100 MG CAP PO SCH ×2 (08:45→20:32)
[2021-11-11] MEDS: UMECLIDINIUM BROMIDE 62.5MCG/BLISTER 7 PUFFS/INHALER INH SCH (08:46)
[2021-11-11] MEDS: FLUTICASONE/VILANTEROL 100/25MCG 14 PUFFS/INHALER INH SCH (08:46)
[2021-11-11] MEDS: cefTRIAXone SODIUM 2,000 MG in DEXTROSE 5% 50 ML IV SCH (08:49)
--- NOTE | 2021-11-11 08:59 | Anesthesiology Consultation ---
Date of Service November 11, 2021 Assessment & Plan (1) Encounter for pre-operative examination: Chart Review Chart Review: Pending: Refer to Additional Notes / Consult section (would benefit from better rate control and has been hypotensive and receiving PRBC's) History Surgery Operation Date: 11/11/21 09:55 Proposed Procedures p Cystoscopy, Clot Evacuation, Possible Resection, Fulguration - Eleazar Harding, DO Height/Weight Height: 5 ft 4 in Weight: 97.749 kg Allergies Allergy/AdvReac Type Severity Reaction Status Date / Time diltiazem Allergy Severe SHORTNESS Verified 11/10/21 07:20 OF BREATH AND SWELLING OF HANDS AND FACE nut - unspecified Allergy Severe Wheezing Verified 11/10/21 07:20 peanut Allergy Severe Wheezing Verified 11/10/21 07:20 Yeast Allergy Severe Wheezing Verified 11/10/21 07:20 Penicillins Allergy Intermediate WELTS IN Verified 11/10/21 07:20 MOUTH AND SPREAD TO BODY adhesive Allergy Mild BLISTERS Verified 11/10/21 07:20 latex Allergy Mild RASH Verified 11/10/21 07:20 indomethacin Allergy Unknown per pulm Verified 11/10/21 07:20 note tree and shrub pollen Allergy Unknown ELM Verified 11/10/21 07:20 TREE-RASH BLISYERS HANDS ARMS FEET allopurinol Allergy Unknown Unverified 11/10/21 07:20 febuxostat [From Uloric] Allergy Unknown Verified 11/10/21 07:20 oxycodone Allergy Unknown Verified 11/10/21 07:20 codeine AdvReac Mild N&V&GI PAIN Verified 11/10/21 07:20 paroxetine AdvReac Mild GI SYMPTOMS Verified 11/10/21 07:20 varenicline AdvReac Mild GI Verified 11/10/21 07:20 SYMPTOMS,HALLUCINATIONS linaclotide [From Linzess] AdvReac Unknown CAUSED Verified 11/10/21 07:20 ASTHMA ATTACK Medications Home Medications Medication Instructions Recorded Confirmed Last Taken budesonide-formoterol HFA 160 2 puff INHALATION BID #10.2 gm 11/15/20 11/10/21 09/23/21 mcg-4.5 mcg/actuation aerosol inhaler (Symbicort) montelukast 10 mg tablet 10 mg PO HS #30 tab 04/03/21 11/10/21 09/22/21 acetaminophen 325 mg tablet 650 mg PO Q4 PRN 05/28/21 11/10/21 Unknown cholecalciferol (vitamin D3) 25 25 mcg PO BID 05/28/21 11/10/21 09/23/21 mcg (1,000 unit) tablet sodium chloride 0.65 % nasal spray 1 spray INTRANASAL TID PRN 05/28/21 11/10/21 09/23/21 aerosol (Saline Nasal) umeclidinium 62.5 mcg/actuation 1 inh INHALATION DAILY 08/13/21 11/10/21 09/23/21 blister powder for inhalation (Incruse Ellipta) aspirin 81 mg tablet,delayed 81 mg PO QAM 08/22/21 11/10/21 09/23/21 release (Adult Aspirin Regimen) atorvastatin 20 mg tablet 20 mg PO HS #90 tab 08/22/21 11/10/21 09/22/21 levothyroxine 50 mcg tablet 50 mcg PO DAILY #90 tab 08/22/21 11/10/21 09/23/21 midodrine 10 mg tablet 10 mg PO TID #90 tab 08/22/21 11/10/21 09/23/21 promethazine 25 mg tablet 25 mg PO TID PRN #90 tab 08/22/21 11/10/21 09/23/21 tramadol 50 mg tablet 100 mg PO Q8 PRN #180 tab 08/22/21 11/10/21 09/24/21 hydrocortisone acetate 30 mg 30 mg ID BID #20 ea 09/20/21 11/10/21 09/23/21 rectal suppository pantoprazole 40 mg tablet,delayed 40 mg PO BID #60 tab 09/20/21 11/10/21 09/23/21 release docusate sodium 100 mg capsule 100 mg PO BID 09/24/21 11/10/21 09/23/21 duloxetine 20 mg capsule,delayed 40 mg PO QAM #60 cap 09/24/21 11/10/21 09/22/21 release lidocaine 5 % topical patch 1 patch TOP DAILY PRN #15 ea 09/24/21 11/10/21 Unknown torsemide 20 mg tablet 40 mg PO QAM 09/24/21 11/10/21 09/23/21 metoprolol tartrate 25 mg tablet 12.5 mg PO BID 11/10/21 11/10/21 Unknown Active Medications Generic Name Dose Route Start Last Admin Trade Name Emelina PRN Reason Stop Dose Admin Atorvastatin Calcium 20 mg 11/10/21 21:00 11/10/21 19:29 Atorvastatin 20 Mg Tab PO 12/10/21 20:59 20 mg HS JOSÉ LUIS Administration Docusate Sodium 100 mg 11/10/21 11:00 11/11/21 08:45 Docusate Sodium 100 Mg Cap PO 12/10/21 10:59 100 mg BID JOSÉ LUIS Administration Duloxetine HCl 40 mg 11/10/21 11:00 11/11/21 08:45 Duloxetine Hcl 20 Mg Cap PO 12/10/21 10:59 40 mg QAM JOSÉ LUIS Administration Fluticasone/Vilanterol 1 puffs 11/10/21 11:30 11/11/21 08:46 Fluticasone/Vilanterol 100/25mcg 14 Puffs/Inhaler INH 12/10/21 11:29 1 puffs DAILY JOSÉ LUIS Administration Hydromorphone HCl 0.25 mg 11/10/21 10:25 11/10/21 16:49 Hydromorphone Inj 0.5 Mg/0.5 Ml Syr IV 11/24/21 10:24 0.25 mg Q4H PRN Administration Pain Ceftriaxone Sodium 2,000 mg/ 70 mls @ 100 mls/hr 11/11/21 09:00 11/11/21 08:49 Dextrose IV 11/13/21 08:59 100 mls/hr DAILY JOSÉ LUIS Administration Protocol Levothyroxine Sodium 50 mcg 11/10/21 11:00 11/11/21 06:14 Levothyroxine Sodium 50 Mcg Tablet PO 12/10/21 10:59 50 mcg DAILYBB JOSÉ LUIS Administration Midodrine 10 mg 11/10/21 12:00 11/11/21 08:45 Midodrine Hcl 10 Mg Tab PO 12/10/21 11:59 10 mg TID@0800,1200,1700 JOSÉ LUIS Administration Miscellaneous 1 ea 11/10/21 21:00 11/10/21 19:29 Remove Lidoderm Patch N/A 12/10/21 20:59 Not Given DAILY@2100 JOSÉ LUIS Montelukast Sodium 10 mg 11/10/21 21:00 11/10/21 20:14 Montelukast Sodium 10 Mg Tablet PO 12/10/21 20:59 10 mg HS JOSÉ LUIS Administration Pantoprazole Sodium 40 mg 11/10/21 11:00 11/11/21 08:45 Pantoprazole 40 Mg Tab PO 12/10/21 10:59 40 mg BID JOSÉ LUIS Administration Umeclidinium [place] 1 puffs 11/10/21 11:00 11/11/21 08:46 Umeclidinium [place] 62.5mcg/Blister 7 Puffs/Inhaler INH 12/10/21 10:59 1 puffs DAILY JOSÉ LUIS Administration Vitamin D 1,000 units 11/10/21 11:00 11/11/21 08:45 Cholecalciferol 1,000 Units 25 Mcg Tab PO 12/10/21 10:59 1,000 units BID JOSÉ LUIS Administration Past Medical History Medical History (Updated 11/11/21 @ 08:55 by Boby Nguyễn MD) Anemia Anxiety Asthma Atrial fibrillation Chronic kidney disease, stage 3 (moderate) F/U DR VILLAGOMEZ Chronic obstructive pulmonary disease with emphysema- on inhalers CML (chronic myelocytic leukemia) F/U DR [facility] Depression Diabetes mellitus, type 2 DIET MANAGED GERD (gastroesophageal reflux disease) Hyperlipidemia Hypertension Hypothyroidism Iron deficiency anemia Kidney stones HX Lung cancer, lower lobe 2016--left--sx, chemo On home oxygen therapy 2L n/c continuous Sleep apnea NO LONGER USING CPAP-USES ONLY OXYGEN CONTINUOUSLY SOBOE (shortness of breath on exertion) Stress incontinence in female Temporomandibular joint disorder PAIN BILAT-HAS NEVER LOCKED Past Family History Family History Sister Family history of reaction to anesthesia "had an allergic reaction", not sure what happened Arthritis Family history of diabetes mellitus Heart disease Hypertension Mother Family history of diabetes mellitus Myocardial infarction Heart disease Hypertension age 63 due to DE Grandmother Family history of diabetes mellitus maternal Family/Other Family history of diabetes mellitus maternal uncle/maternal aunts Colorectal cancer Family/Other Family hx of colon cancer paternal cousin Father age 91 Gout Denies family history of Crohn's disease Ulcerative colitis Past Surgical History Surgical History History of appendectomy History of bronchoscopy 2016 History of cardiac cath 11/2017 @ [facility]--no stents History of cholecystectomy History of colonoscopy History of dilatation and curettage History of esophagogastroduodenoscopy (EGD) History of lobectomy of lung lower left lobe 2017 @ [facility] History of open reduction and internal fixation (ORIF) procedure R upper thigh x2--pins/rods in place History of tooth extraction all teeth History of total left knee replacement (TKR) History of total right knee replacement (TKR) Social History Smoking Status: Unknown if ever smoked tobacco type: cigarettes Smoking cigarettes per day: 2pks Hx Alcohol Use: No Hx Substance Use: No substance use type: does not use Physical Exam Vital Signs Last Vital Signs Temp 36.7 C 11/11/21 08:16 Pulse 115 H 11/11/21 08:16 Resp 19 11/11/21 08:16 BP 102/61 11/11/21 08:16 Pulse Ox 97 11/11/21 08:16 Testing Laboratory Results 11/11/21 07:29 11/11/21 07:29 PT 12.5 Seconds (9.0-12.0) H 11/10/21 05:45 INR 1.3 (0.9-1.1) H 11/10/21 05:45 APTT 31.6 Seconds (21.0-31.0) H 11/10/21 05:45 Urine Color Red 11/10/21 06:12 Urine Appearance Cloudy (Clear) A 11/10/21 06:12 Urine pH 7.5 (4.5-7.5) 11/10/21 06:12 Ur Specific Harper 1.025 (1.000-1.030) 11/10/21 06:12 Urine Protein 3+ (Negative) H 11/10/21 06:12 Urine Glucose (UA) Trace (Negative) H 11/10/21 06:12 Urine Ketones Negative (Negative) 11/10/21 06:12 Urine Nitrite Negative (Negative) 11/10/21 06:12 Ur Leukocyte Esterase Negative (Negative) 11/10/21 06:12 Urine RBC >30 /hpf (0-4) H 11/10/21 06:12 Urine WBC >30 /hpf (0-5) H 11/10/21 06:12 Ur Epithelial Cells 0-5 /lpf (0-5) 11/10/21 06:12 Blood Type A Negative 11/10/21 07:00 Antibody Screen NEGATIVE 11/10/21 07:00 11/10/21 06:12 Urine Culture - Preliminary Urine,Straight Cath Pin-point growth present, reincubating. 11/11/21 07:23 POC Glucose 94 Electrocardiogram Date: 11/10/21 Findings: + AFIB @ (121) previously seen anterolateral infarct Chest X-Ray Date: 11/10/21 Findings: + cardiomegaly, + pulmonary vascular congestion (mild) and + pleural effusion (trace) Echocardiogram Date: 08/19/19 EF: 55-60% LV Function: normal Valvular Disease: + MR (mild) mild TR
--- NOTE | 2021-11-11 12:52 | Hospitalist Progress Note ---
Date of Service November 11, 2021 Assessment & Plan (1) Gross hematuria: Plan: Present on admission. Initial Rx in ER - 3-way kelley placed; CBI started. Urine sent for culture. Empiric rocephin 2gm IV daily. 2 units PRBCS given. Admitted to PCU. [facility] Urology Dr Harding saw in consult - larger kelley catheter placed, hand irrigation performed, numerous clots removed, CBI continues. Last pm -- additional bleeding resulting in worsening hypotension. 2 more units PRBCs given. Went to OR with Dr Harding today -- large amount of clots/blood found in bladder; evacuated. Entire bladder wall with severe inflammation, ulcers, etc. Biopsies taken, Bladder wall fulgurated. ?bladder perforation but cystogram did not verify such - bleeding was extraperitoneal with no extravasation of contrast into the peritoneum. Post-op went to PACU - ongoing hypotension, afib RVR, confusion, pain, etc all present. Most recent Hb was 7.8. Decision made to transfer to ICU rather than return to PCU. Care d/w Dr Harding. Care d/w anesthesia, Dr Booth. He ordered 1 unit of FFP. Care d/w GABRIELLE Basurto, on-call critical care provider. Type/cross 2 more units of PRBCS - total of 3 on stand-by. Appreciate everyone's assistance. (2) Acute on chronic anemia: Plan: Chronic anemia, baseline Hb 7.5 to 9. 2nd to CML. Hb <7 at time of presentation. Acute anemia 2nd to active bleeding from b ladder. Tx 2 units PRBCs yesterday am/afternoon. Tx 2 units PRBCs overnight last pm due to ongoing hematuria and hypotension. s/p 2 units PRBCs given in the OR today. (3) Acute blood loss anemia: Plan: 2nd to #1. Total 6 units of PRBCs given since admission. NO GI bleeding via ostomy. See #1 above. (4) Hypotension: Plan: 2nd to active bleeding/acute blood loss anemia from bladder. Can't rule out early sepsis. Procal mildly elevated. Rocephin IV empirically. Holding metoprolol. Continue midodrine TID. Cortisol >20. Tx to ICU post-op. Likely to need additional PRBCs. may need pressors. (5) Atrial fibrillation with rapid ventricular response: Plan: HRs are worst when there is active bleeding, as expected. She is a poor candidate for most therapies for her a.fib including digoxin (renal dysfunction), cardizem (allergy), and amiodarone (is not chronically anticoagulated). I spoke with Dr Rosenbaum - [facility] Cardiology - who will consult for us. He suggested low-dose esmolol drip if needed for rate control. Cont to hold metoprolol. Cannot use amiodarone due to risk of stroke if she chemically cardioverts. Previously was on anticoagulation but had retroperitoneal hemorrhage in the past and has NOT been on anticoagulation since. (6) CML (chronic myeloid leukemia): Plan: Follows with [facility], not on medications for such. Daily CBC while here. I spoke with Dr Diomedes Hernandez who will consult. (7) Thrombocytosis: Plan: 2nd to #6. Fe deficiency can cause high platelets as well. While here check Fe studies and daily CBC. Unfortunately need to hold asa due to #1. (8) Chronic kidney disease, stage 3 (moderate): Plan: Baseline CrCl about 30. Mild GIOVANA in the setting of hypotension, bladder issues, etc. BMP am. (9) Hypothyroidism: Plan: TSH 09/2021 wnl. Cont synthroid. (10) Hyperlipidemia: Plan: Continue statin. (11) Edema: Plan: 2nd to chronic lymphedema, severe hypoalbuminemia (albumin <2), chronic diastolic CHF, etc. Can't rule out DVTs. (12) COPD (chronic obstructive pulmonary disease): Plan: with chronic hypoxic resp failure, on home O2. stable. no exacerbation. cont inhalers. O2 sats remain stable. (13) Gout: Plan: no issues at this time (14) GERD (gastroesophageal reflux disease): Plan: Cont PPI twice daily. (15) Chronic respiratory failure with hypoxia, on home O2 therapy: Plan: stable, without exacerbation. (16) Hypertension: Plan: hold metoprolol. cont midodrine. (17) Diabetes mellitus, type 2: Plan: previous HbA1Cs <6%. BSGs have been all wnl. (18) DVT prophylaxis: Plan: SCDs. Chemical means contraindicated in light of #1. (19) Acute kidney injury: Plan: baseline Cr high 1's today 2.3 - 2.4 2nd to prerenal causes, post-renal, etc improve her BP and cardiac output post-renal issues treated by Dr Harding serial BMPs Plan: Tx to ICU post-op Care d/w GABRIELLE Basurto, ICU provider I updated pt's daughter, Skyla Lindsay, this evening Dr Harding also updated Skyla Crum aware of transfer to ICU due to hypotension, etc total time today over several visits, complex care coordination, etc - 80 minutes Admission and Anticipated Discharge Date Admission Date: November 10, 2021 Subjective saw patient twice today - first was on AM rounds, 2nd was post-op in the PACU. events of overnight reviewed - had hypotension and ongoing rapid a.fib; CBC checked and H/H dropped once again. received 2 units PRBCs overnight. Hb >8 on cbc this am following those units. during AM rounds she c/o bladder pain/spasm. breathing was comfortable; denied any dyspnea. no chest pain. she was anxious about the events of overnight and today. still no stool output via ostomy. but passing flatus through such. tele - rapid a.fib, rates >100. patient went to OR - large amount of blood/clots found in bladder by Dr Harding. evacuated. biopsies of bladder wall taken. while in PACU continued with rapid a.fib and hypotension. o2 sats low 90s on oxymask. I spoke with anesthesia post-op regarding her status. Anesthesia ordered FFP for her. Upon arrival she was awake but disoriented, calling out and stating she needed to sit up. She did endorse pain. a.fib rates 120s-140s. Review of Systems Review of Systems: gen - no fevers or chills; +fatigue CV - no chest pain, no orthopnea pulm - wheezing, dyspnea GI - no nausea or emesis; flatus via ostomy; suprapubic pain - ongoing pink-colored urine, CBI in place Physical Exam Physical Exam: pre-op, AM rounds: Gen - awake, alert, laying flat in bed comfortably, occasional c/o pain due to bladder spasm neck - mild JVD seen heart - irregularly irregular, s1 s2, no murmurs; tachy lungs - rales R base; no rales on left; b/l wheezes; no increased work of breathing abd - mildly distended, pain over suprapubic region, colostomy with bag in place L abdomen - scant stool, air present; BS+ ext - 2+ edema/lymphedema b/l, pulses 2+ b/l psych - a/o x 3 skin - pallor, no rash Results & Data Results & Data ([facility]) Vital Signs (Past 12 Hours) Vital Signs Temp Pulse Pulse Resp BP BP Pulse Ox 11/11/21 11:56 37.0 C 127 H 20 81/47 L 96 11/11/21 08:16 36.7 C 115 H 19 102/61 97 11/11/21 06:09 36.8 C 112 H 15 74/49 L 96 11/11/21 05:29 36.6 C 119 H 15 74/35 L 94 11/11/21 04:29 36.6 C 122 H 15 92/55 L 93 11/11/21 03:59 36.6 C 114 H 15 87/49 L 95 11/11/21 03:44 36.8 C 113 H 15 79/48 L 96 11/11/21 03:29 36.6 C 112 H 15 87/51 L 93 11/11/21 03:18 36.6 C 112 H 15 87/51 L 93 11/11/21 02:55 36.7 C 114 H 15 80/45 L 94 11/11/21 02:22 125 H 11/11/21 01:55 36.5 C 115 H 15 79/47 L 93 11/11/21 00:55 36.4 C L 114 H 15 72/35 L 95 Laboratory Results Laboratory Results - last 24 hr 11/10/21 11/10/21 11/10/21 07:00 15:08 15:08 WBC 53.23 H* RBC 2.79 L Hgb 7.8 L Hct 24.7 L MCV 88.5 MCH 28.0 MCHC 31.6 L RDW Std Deviation 53.5 H RDW Coeff of Bruce 16.9 H Plt Count 1008 H* MPV 11.1 H Absolute Nucleated RBC Nucleated RBC % (auto) Neutrophils % (Manual) 76.6 Lymphocytes % (Manual) 2.6 Monocytes % (Manual) 1.7 Basophils % (Manual) 7.8 Metamyelocytes % (Man) 8.7 Myelocytes % (Man) 2.6 Neutrophils # (Manual) 40.77 H Total Absolute Neuts 40.77 H Lymphocytes # (Manual) 1.38 Total Abs Lymphocytes 1.38 Monocytes # (Manual) 0.90 H Basophils # (Manual) 4.15 H Metamyelocytes # (Man) 4.63 H Myelocytes # (Manual) 1.38 H Polychromasia 1+ Hypochromasia Present Anisocytosis Present Sodium Potassium Chloride Carbon Dioxide Anion Gap BUN Creatinine Est Cr Clr Drug Dosing Est GFR ( Amer) Est GFR (Non-Af Amer) BUN/Creatinine Ratio Glucose POC Glucose Calcium Total Bilirubin AST ALT Alkaline Phosphatase Total Protein Albumin Globulin Albumin/Globulin Ratio Procalcitonin 0.80 H Random Cortisol Blood Type A Negative Antibody Screen NEGATIVE Crossmatch See Detail 11/10/21 11/10/21 11/11/21 22:23 22:23 07:23 WBC RBC Hgb 7.0 L Hct 21.9 L MCV MCH MCHC RDW Std Deviation RDW Coeff of Bruce Plt Count MPV Absolute Nucleated RBC Nucleated RBC % (auto) Neutrophils % (Manual) Lymphocytes % (Manual) Monocytes % (Manual) Basophils % (Manual) Metamyelocytes % (Man) Myelocytes % (Man) Neutrophils # (Manual) Total Absolute Neuts Lymphocytes # (Manual) Total Abs Lymphocytes Monocytes # (Manual) Basophils # (Manual) Metamyelocytes # (Man) Myelocytes # (Manual) Polychromasia Hypochromasia Anisocytosis Sodium 139 Potassium 4.1 Chloride 105 Carbon Dioxide 23 Anion Gap 11.0 BUN 57 H Creatinine 2.18 H D Est Cr Clr Drug Dosing 27.8 Est GFR ( Amer) 26.1 Est GFR (Non-Af Amer) 22.5 BUN/Creatinine Ratio 26.4 H Glucose 92 POC Glucose 94 Calcium 8.0 L Total Bilirubin 0.4 AST 19 ALT 9 L Alkaline Phosphatase 105 Total Protein 4.7 L D Albumin 1.8 L Globulin 2.9 Albumin/Globulin Ratio 0.6 L Procalcitonin Random Cortisol Blood Type Antibody Screen Crossmatch 11/11/21 11/11/21 11/11/21 07:29 07:29 07:29 WBC 46.25 H* RBC 2.86 L Hgb 8.3 L Hct 25.3 L MCV 88.5 MCH 29.0 MCHC 32.8 RDW Std Deviation 51.0 H RDW Coeff of Bruce 15.9 H Plt Count 794 H MPV 11.2 H Absolute Nucleated RBC 0.23 H Nucleated RBC % (auto) 0.5 Neutrophils % (Manual) Lymphocytes % (Manual) Monocytes % (Manual) Basophils % (Manual) Metamyelocytes % (Man) Myelocytes % (Man) Neutrophils # (Manual) Total Absolute Neuts Lymphocytes # (Manual) Total Abs Lymphocytes Monocytes # (Manual) Basophils # (Manual) Metamyelocytes # (Man) Myelocytes # (Manual) Polychromasia Hypochromasia Anisocytosis Sodium 139 Potassium 4.0 Chloride 106 Carbon Dioxide 23 Anion Gap 10.0 BUN 61 H Creatinine 2.38 H Est Cr Clr Drug Dosing 25.7 Est GFR ( Amer) 23.5 Est GFR (Non-Af Amer) 20.3 BUN/Creatinine Ratio 25.5 H Glucose 92 POC Glucose Calcium 7.8 L Total Bilirubin AST ALT Alkaline Phosphatase Total Protein Albumin Globulin Albumin/Globulin Ratio Procalcitonin Random Cortisol 23.16 Blood Type Antibody Screen Crossmatch PG Care Time/CCT Total # of Minutes Spent Total Time Spent with Patient: Total time spent is greater than 50% in coordination of care (as documented) at patient's floor/unit and/or counseling patient: Prolonged Care Time Prolonged Care Time: Yes 80 Coding Level of Care Code 77571 Subseq Hosp Care Lvl 3 (25 - SIGNIFICANT, SEPARATELY IDENTIFIABLE ) Diagnoses Gross hematuria R31.0 Acute on chronic anemia D64.9 Acute blood loss anemia D62 Hypotension I95.9 Atrial fibrillation with rapid ventricular response I48.91 CML (chronic myeloid leukemia) C92.10 Thrombocytosis D75.839 Chronic kidney disease, stage 3 (moderate) N18.3 Hypothyroidism E03.9 Hyperlipidemia E78.5 Hyperlipidemia type: unspecified Edema R60.9 COPD (chronic obstructive pulmonary disease) J43.9 COPD type: emphysema Emphysema type: unspecified Gout M1A.[id number] Chronicity: chronic Gout etiology: unspecified cause Gout site: multiple sites GERD (gastroesophageal reflux disease) K21.9 Chronic respiratory failure with hypoxia, on home O2 therapy J96.11; Z99.81 Hypertension I10 Hypertension type: essential hypertension Diabetes mellitus, type 2 E11.9 DVT prophylaxis Z29.9 Acute kidney injury N17.9 Additional Codes Prolonged Care Time - Prolonged Care Time: Yes ([id number]) Time Spent (min) 80 (1) Gout Chronicity: chronic Gout etiology: unspecified cause Gout site: multiple sites Qualified Code(s): M1A.09X0 - Idiopathic chronic gout, multiple sites, without tophus (tophi) (2) Hyperlipidemia Hyperlipidemia type: unspecified Qualified Code(s): E78.5 - Hyperlipidemia, unspecified (3) COPD (chronic obstructive pulmonary disease) COPD type: emphysema Emphysema type: unspecified Qualified Code(s): J43.9 - Emphysema, unspecified (4) Hypertension Hypertension type: essential hypertension Qualified Code(s): I10 - Essential (primary) hypertension
[2021-11-11] MEDS ORDERED: LIDOCAINE 2% 2 ML VIAL/AMP(20MG/ML) INFIL ONE (14:35)
[2021-11-11] MEDS ORDERED: MIDAZOLAM HCL 1 MG/ML 2ML VIAL ONE (14:35)
[2021-11-11] MEDS ORDERED: PROPOFOL IV EMULSION 10 MG/ML 20 ML VIAL IV ONE ×3 (14:35→17:20)
[2021-11-11 15:02] LABS: Hematocrit (blood only) 23.8 % (37-47); Hemoglobin 7.8 g/dL (12.0-16.0)
[2021-11-11] MEDS ORDERED: IPRATROPIUM BROMIDE NEB SOLN 0.02% 2.5 ML VIAL INH PRN (15:17)
[2021-11-11] MEDS ORDERED: HYDROmorphone INJ 1 MG/ML SYRINGE IV PRN (15:17)
[2021-11-11] MEDS ORDERED: ePHEDrine sulfate 50 MG/ML AMP IV PRN (15:17)
[2021-11-11] MEDS ORDERED: fentaNYL citrate 100 MCG/2 ML VIAL IV PRN (15:17)
[2021-11-11] MEDS ORDERED: MEPERIDINE HCL 25 MG/ML CARP/VIAL IV PRN (15:17)
[2021-11-11] MEDS ORDERED: ATROPINE SULFATE 0.1 MG/ML 10ML SYR IV PRN (15:17)
[2021-11-11] MEDS ORDERED: fentaNYL citrate 100 MCG/2 ML VIAL ONE (16:30)
[2021-11-11] MEDS ORDERED: KETAMINE 50 MG/5 ML SYRINGE ONE (16:35)
[2021-11-11] MEDS ORDERED: SODIUM CHLORIDE 0.9% 250 ML IV PRN ×3 (17:13→19:42)
[2021-11-11] MEDS ORDERED: DIATRIZOATE MEGLUMINE 30% 100ML VIAL INSTIL ONE (17:51)
[2021-11-11] MEDS ORDERED: PHENYLEPHRINE 100MCG/ML 5ML SYR ONE (18:12)
--- NOTE | 2021-11-11 18:23 | Operative Report ---
PG Post Operative Report Pre & Post Diagnosis Operation Date: 11/11/21 09:55 Pre-Op Diagnosis: Gross hematuria, ABLA Post-Op Diagnosis: Gross hematuria, ABLA with extraperitoneal bladder rupture I identified the patient and participated in the time-out.: Yes Procedure Operation Date: 11/11/21 09:55 Actual Procedures p Cystoscopy with cystogram. Extensive clot Evacuation, transurethral resection of bladder tumor, large, and extensive fulguration - Eleazar Harding DO Surgeon Eleazar Harding, II, DO Knock Out Hand None Estimated Blood Loss 20 Findings Consistent with Post-Op Diagnosis Severe bleeding with greater than 1500 cc of clot material evacuated. Innumerable bladder lesions and ulceration found and throughout bladder. Large amount of clot at region of anterior bladder/dome. On assessment patient found to have what appeared to be a bladder rupture. Cystogram was completed and found to be extraperitoneal with no extravasation of contrast into the peritoneum. Extensive fulguration and attempted control of bleeding ulcerated, inflamed, and irritated bladder lining Specimens Resection of bladder dome/posterior wall. Resection of bladder posterior wall Drains 26 [place]ian silicone catheter. Complications none Disposition Disposition: Recovery Room Indications Patient acute blood loss anemia and gross hematuria with massive clot formation. Patient underwent a extensive clot evacuation overnight however continued to have bleeding and required CBI, transfusion, and supportive care. Due to ongoing issues with bleeding risks and benefits discussed at length. Patient agreed to cystoscopy and possible clot evacuation with fulguration and possible resection. Description of Procedure Patient was consented and brought back to the operating room. Patient was placed under anesthesia in the supine position and moved to the dorsal lithotomy position. Patient was prepped and draped in the regular sterile fashion. A time out was completed. A 30 degree Cystoscope was placed into the bladder and an immediate holcomb of a large amount of fluid was received. The resection scope was placed in order to have a larger channel. Due to the massive amount of clot material within the bladder. This was copiously irrigated. Over 1500 cc of clot material were evacuated. This was disposed of. The scope was then replaced and the entire bladder assessed. Innumerable severe ulcerated inflamed and edematous tissue was found throughout the bladder. Mild sparing of the base/posterior wall region however the remainder of the entirety of the bladder was found to be severely irritated and inflamed. The dome was most significantly inflamed as well as the posterior wall/dome junction. In the anterior bladder a area of severe fissure was discovered. Based on assessment and possibility of exposure of perivesicular fat a concern for possible bladder rupture due to the patient's severe over distention. The fluoroscopy team was alerted and brought in to do a bedside cystogram. 150 cc of contrast was instilled in the bladder with an additional 50 cc to do a real-time cystogram. Extravasation of contrast was seen to be surrounding the bladder coming from the left anterior bladder. No contrast appeared to extravasate into the peritoneal space. Based on the assessment and the view this appears to be an extraperitoneal bladder rupture. May have been the source of the patient's bleeding issues from the start. Multiple areas of large bleeding vessels were appreciated on repeat assessment of the area after cystogram. Fulguration was used to control bleeding coming from these large vessels. The bleeding was considerably left after fulguration of these areas. A large amount of clot material was also able to be evacuated from the extraperitoneal cavity. The UO's were identified as well as the bladder neck, trigone, dome, and the other important landmarks. Due to the severity of the inflammation and irritation concern for possible malignancy or other issues were difficult to determine. Majority of issues did appear to be due to severe over distention. The resection scope was used to take samples from the posterior wall and the posterior wall/dome. The posterior wall was the largest area of resection and the size of this area came to be approximately 6.7 cm's. These were sent for pathologic analysis. The edges of the lesions were fulgurated and the entire area inspected. All bleeding was controlled from the resection sites The bladder was inspected a final time. Patient continued to have multiple areas of severely ulcerated and edematous and thickened bladder lining and tissue. The remainder of the bladder at areas of resection were controlled for bleeding. The area of extraperitoneal bladder rupture did not have active bleeding. And did appear to collapse well with drainage of the bladder. A final cystogram was completed to assess drainage. The bladder did appear to drain completely. All contrast did appear to drain with catheterization. The 26 [place]ian silicone catheter placed to do the cystogram was then maintained after elevating the balloon to 10 cc. The bladder was emptied. The patient was cleaned, aroused from anesthesia, and transferred to the pacu in stable condition having tolerated the procedure well with no complications. I was present and participated in all aspects of the procedure. Patient received additional blood during the procedure. Continues to be tachycardic and hypotensive throughout the procedure however patient does tend to be in this range. Due to the likely extraperitoneal bladder rupture we will need to monitor patient closely. We will continue to follow patient's bleeding issues. After the procedure patient had a light red urine. No clots or other major concern for obstruction. Patient has multiple chronic comorbidities and considerable bleeding concern due to history of leukemia. We will need to monitor closely. May need additional transfusion. May need to consider other alternatives for management such as alum or possibly intervention with hyperbaric oxygen as an outpatient. We will continue to monitor. Will treat extraperitoneal bladder rupture with Shahid decompression for likely 2 to 3 weeks and plan for cystogram after adequate healing. We will need to monitor for ongoing and increasing issues. The patient will be monitored in the PACU until transferred. I attest to the content of the Intraoperative Record and any orders documented therein. Any exceptions are noted below.
[2021-11-11 18:34] LABS: iSTAT Creatinine 2.4 mg/dl (0.6-1.3); iSTAT Hemoglobin 7.8 g/dl (12.0-16.0); iSTAT Ionized Calcium 1.11 mmol/l (1.12-1.32); iSTAT Potassium 4.3 mmol/L (3.3-5.0)
[2021-11-11] MEDS ORDERED: ONDANSETRON INJ 2 MG/ML 2 ML VIAL IV PRN (18:46)
--- NOTE | 2021-11-11 19:39 | Anesthesiology Progress Note ---
Date of Service November 11, 2021 Anesthesia Post Procedure Vital Signs Vital Signs: Temp Pulse Pulse Resp BP BP Pulse Ox 11/11/21 19:20 36.3 C L 135 H 136 H 18 83/48 L 78/47 L 94 11/11/21 19:10 36.3 C L 144 H 20 82/48 L 94 11/11/21 19:05 36.3 C L 145 H 29 H 73/40 L 92 11/11/21 19:00 36.3 C L 139 H 22 77/49 L 94 11/11/21 18:50 124 H 18 83/46 L 94 11/11/21 18:40 132 H 18 77/59 L 94 11/11/21 18:30 133 H 18 82/54 L 94 11/11/21 18:20 36.0 C L 135 H 18 94 11/11/21 16:11 37.4 C 135 H 22 101/56 L 94 11/11/21 16:00 125 H 22 100/58 L 96 11/11/21 15:45 123 H 22 105/51 L 96 11/11/21 15:30 135 H 22 100/50 L 96 11/11/21 15:15 37.4 C 127 H 22 100/62 98 11/11/21 15:00 123 H 22 181/58 H 98 11/11/21 14:43 132 H 20 2 L 11/11/21 13:45 37.4 C 129 H 22 84/44 L 97 11/11/21 11:56 37.0 C 127 H 20 81/47 L 96 11/11/21 08:16 36.7 C 115 H 19 102/61 97 11/11/21 06:09 36.8 C 112 H 15 74/49 L 96 11/11/21 05:29 36.6 C 119 H 15 74/35 L 94 11/11/21 04:29 36.6 C 122 H 15 92/55 L 93 11/11/21 03:59 36.6 C 114 H 15 87/49 L 95 11/11/21 03:44 36.8 C 113 H 15 79/48 L 96 11/11/21 03:29 36.6 C 112 H 15 87/51 L 93 11/11/21 03:18 36.6 C 112 H 15 87/51 L 93 01/10/22 02:55 36.7 C 114 H 15 80/45 L 94 11/11/21 02:22 125 H 11/11/21 01:55 36.5 C 115 H 15 79/47 L 93 11/11/21 00:55 36.4 C L 114 H 15 72/35 L 95 11/11/21 00:25 36.5 C 128 H 15 76/44 L 94 11/11/21 00:10 36.5 C 127 H 15 65/37 L 96 11/10/21 23:45 36.7 C 123 H 17 69/32 L 97 11/10/21 23:06 36.6 C 118 H 24 77/47 L 100 11/10/21 21:11 115 H 16 77/43 L 11/10/21 19:49 36.6 C 119 H 16 86/52 L 97 Pain Intensity Groin: Pain Intensity: 10 Transfer of Care Handoff Completed per policy Notes Mental Status: alert / awake / arousable and participated in evaluation Patient Amnestic to Procedure: Yes Nausea / Vomiting: adequately controlled Pain: adequately controlled Airway Patency, RR, SpO2: stable & adequate BP & HR: see Notes below Hydration State: stable & adequate Anesthetic Complications: no major complications apparent and Pt Satisfied with anesthetic care Notes: Patient received 2 units pRBC's in OR and I decided to administer 1 unit FFP in recovery as she had several units of blood and wanted to assist in providing optimal coagulopathy. I also didn't want to provide significant crystalloid administration for fear of volume overloading patient. She was maintaining SpO2 in low 90's on FM oxygen. She continued to be in A fib with RVR and somewhat hypotensive as seen during the past 24+ hours. Hospitalist called after procedure and he decided to upgrade patient to ICU. Report given to ICU team. Patient transferred.
[2021-11-11] MEDS ORDERED: ICU PROTOCOL FOR HYPERGLYCEMIA PRN (19:42)
[2021-11-11] MEDS ORDERED: STAT IV Infusion **Titration per Protocol STA (19:42)
--- NOTE | 2021-11-11 19:49 | Critical Care Consultation ---
Date of Consultation November 11, 2021 Assessment & Plan (1) Admitted to intensive care unit: Reason Critically Ill: 63-year-old female with significant history of CML, chronic anemia, COPD, lung CA status post left lower lobe resection, asthma, CKD 3, and A. fib who is with acute blood loss in the setting of bladder hemorrhage who is status post cystoscopy with hemodynamic instability in the setting of acute blood loss anemia and A. fib requiring close hemodynamic monitoring, pressor support, blood product administration, etc. NEURO - * CAM ICU: NEGATIVE * Pain: Dilaudid as needed CARDIAC/VASCULAR - * A. fib with RVR: * History of the same, however rates have been poorly controlled. * Likely degree of compensation in the acutely ill patient with acute blood loss anemia in the setting of bladder hemorrhage. * Will administer blood products to support pressures as needed. * Will start Dima-Synephrine drip for pressure support and reflexive bradycardic effects. * Apparently discussions have been had with cardiology earlier in the day. Hesitancy toward administration of beta-deejay secondary to low blood pressures at baseline. Patient requires midodrine dosing at home. Discussion about possible administration of esmolol. Primary service/cardiology hesitant to administer amiodarone secondary to patient's paroxysmal A. fib history who is currently anticoagulated secondary to prior history of retroperitoneal bleed. * At this point, will administer blood products, Dima-Synephrine, and load with digoxin. We will consider starting esmolol drip if blood pressure allows. * Will obtain troponin and EKG in the setting of patient's complaint of chest heaviness. * Random cortisol had been obtained earlier in the day and was marginal at approximately 20. We will initiate stress dose steroids. * Monitor on telemetry. RESPIRATORY - * Asthma, COPD, history of lung CA status post LEFT lower lobe resection: * Patient is home O2 dependent at 2 to 3 L. Saturating well on 5 L oxime mask postoperatively. * Does appear in mild respiratory distress, however she is in significant pain and I feel as though this is driving most of her tachypnea at this point. * Chest x-ray obtained and demonstrates mild degree of fluid overload. * Able to titrate down oxygen to 2 L nasal cannula. * Consideration for NIPPV if needed. Patient doing well on nasal cannula and in no respiratory distress status post administration of Dilaudid. * Patient does have history of ANI and was previously on CPAP at home, however this had been discontinued. * ABG obtained mostly secondary to metabolic concerns and ABG confirms metabolic acidosis. 7.19/40/71/15.3 * Patient is adamant of DO NOT INTUBATE status. GI/NUTRITION - * Hyperglobulinemia: * Had received some albumin in the last 24 hours. She does have some peripheral edema. Consider administration of colloids after volume status addressed with blood products. * N.p.o. status postoperatively. RENAL/LYTES - * GIOVANA on CKD 3: * Likely secondary to hypotension hypovolemia in the setting of blood loss anemia. * Support blood pressure with blood products. * Patient with metabolic acidosis on postoperative ABG. * Received 2 A of sodium bicarbonate. * Will start bicarb drip at a rate of 100 mL/h - * Bladder hemorrhage: * Documentation was initially concern for bladder rupture, however retropyelogram demonstrated no extravasation. Bleeding felt to be controlled status post cystoscopy. * CBI held at this time. * Continues with significantly bloody urine. * Appreciate urology ongoing management. * Shahid in place - Strict I&Os. ENDO - * DMII: * BSGs per unit protocol. ISS --> gtt per unit policy. * Hypothyroidism: * Continue home dosing of levothyroxine as tolerated. HEME - * Acute blood loss anemia: * Secondary to bladder hemorrhage. * Has received 6U PRBCs/1 U FFP prior to arrival in the ICU. * Will transfuse additional unit of PRBCs to support pressure/heart rate while awaiting H&H results as there is clinical concern for ongoing blood loss. * CML/Thrombocytosis: * Follows with Dr. Hernandez. ID - * Concerns for UTI precipitating hematuria/bladder hemorrhage: * Currently receiving Rocephin 2 g daily. * PCT slightly elevated on admission. Will repeat. * Will check lactate. * Add blood cultures. LINES/IV ACCESS - * PIVs x2 * Endurance catheters x2 * Shahid * Did have discussion with patient regarding possible need for CVL/A-line. She is agreeable, but defers at this time as she has just had 2 US guided PIVs placed and wants a "break" from any further procedures at this time. I did explain the utility of both CVL/A-line and that her condition might necessitate procedures which she understands but wishes to forgo at this time. DVT PROPHYLAXIS - * Hold on chemoprophylaxis in the setting of active bladder hemorrhage. * SCDs CODE STATUS - * Per chart review, patient listed as DNR/DNI. * Had extensive conversation with patient at bedside. She is alert, oriented, and able to advocate for her care and make wishes well known. She confirms that she has no interest in being intubated or other heroic measures including chest compressions or defibrillation. I did address the use of pressors which she is agreeable to. I have personally spent 68 minutes of critical care time in the direct management of this patient. This is a life/limb threatening event. This includes time spent evaluating patient, direct bedside care, chart review, placing orders, interpretation of diagnostic studies, discussion with consultants, patient, and family members, as well as other required patient management activities. This time is exclusive of all separately billable procedures, and teaching time and separate from and in addition to any other critical care service time. Thank you for allowing us to participate in the care of this patient. Please refer to my attending physician's documentation for any further recommendations. (2) Status post cystoscopy: (3) Bladder hemorrhage: (4) Acute blood loss anemia: (5) Atrial fibrillation with rapid ventricular response: (6) Acute kidney injury: (7) Diabetes mellitus, type 2: (8) Chronic respiratory failure with hypoxia, on home O2 therapy: (9) Hypotension: (10) Chronic heart failure with preserved ejection fraction: (11) CML (chronic myeloid leukemia): (12) Leukocytosis: (13) Chronic kidney disease, stage 3 (moderate): (14) Thrombocytosis: (15) Hyperlipidemia: (16) On home oxygen therapy: (17) Lung cancer, lower lobe: (18) Hypertension: Supervising Physician Co-Signing Physician Notes Discussed with critical care PHYLLIS. Agree with assessment plan as noted. See my progress note from 11/12/2021 for additional details History of Present Illness Attending Physician: Mikey Sutherland History of Present Illness Patient is a 66-year-old female with a significant past medical history of CML, COPD, lung cancer, CKD 3, chronic anemia, diabetes, gout, and A. fib who presented to the emergency department on 11/10 with abdominal pain and hematuria. Patient had CBI instituted for 24 hours with ongoing hematuria and clot removal. Patient's condition declined. She required 4 units PRBCs on the floor with mild responsiveness and her blood pressure. A. fib rate has been uncontrolled at this time. Patient went to the OR today to undergo cystoscopy where signific ant mount of clot was removed. Initially, they thought there is degree of bladder rupture, however Pyelogram demonstrated no rupture bladder. CBI was stopped. Burdick as though the patient's condition had improved. She did receive an additional 2 units PRBC in the OR as well as 1 unit FFP in PACU. The patient remained tachycardic throughout time in PACU and A. fib. Blood pressures were soft as well. Upon arrival in the ICU, the patient is awake and alert yet sleepy. She is able to answer questions appropriately. She complains of suprapubic abdominal discomfort which she describes is consistent from preoperative timeframe. Additionally, she is describing some chest heaviness which she reports is making it difficult for her to breathe. Otherwise, she offers no other complaints though she is relatively drowsy status post surgical intervention. Allergies Allergy/AdvReac Type Severity Reaction Status Date / Time diltiazem Allergy Severe SHORTNESS Verified 11/10/21 07:20 OF BREATH AND SWELLING OF HANDS AND FACE nut - unspecified Allergy Severe Wheezing Verified 11/10/21 07:20 peanut Allergy Severe Wheezing Verified 11/10/21 07:20 Yeast Allergy Severe Wheezing Verified 11/10/21 07:20 Penicillins Allergy Intermediate WELTS IN Verified 11/10/21 07:20 MOUTH AND SPREAD TO BODY adhesive Allergy Mild BLISTERS Verified 11/10/21 07:20 latex Allergy Mild RASH Verified 11/10/21 07:20 indomethacin Allergy Unknown per pulm Verified 11/10/21 07:20 note tree and shrub pollen Allergy Unknown ELM Verified 11/10/21 07:20 TREE-RASH BLISYERS HANDS ARMS FEET allopurinol Allergy Unknown Unverified 11/10/21 07:20 febuxostat [From Uloric] Allergy Unknown Verified 11/10/21 07:20 oxycodone Allergy Unknown Verified 11/10/21 07:20 codeine AdvReac Mild N&V&GI PAIN Verified 11/10/21 07:20 paroxetine AdvReac Mild GI SYMPTOMS Verified 11/10/21 07:20 varenicline AdvReac Mild GI Verified 11/10/21 07:20 SYMPTOMS,HALLUCINATIONS linaclotide [From Linzess] AdvReac Unknown CAUSED Verified 11/10/21 07:20 ASTHMA ATTACK Home Medications Medication Instructions Recorded Confirmed Type budesonide-formoterol HFA 160 2 puff INHALATION BID #10.2 gm 11/15/20 11/10/21 Rx mcg-4.5 mcg/actuation aerosol inhaler (Symbicort) montelukast 10 mg tablet 10 mg PO HS #30 tab 04/03/21 11/10/21 Rx acetaminophen 325 mg tablet 650 mg PO Q4 PRN 05/28/21 11/10/21 History cholecalciferol (vitamin D3) 25 25 mcg PO BID 05/28/21 11/10/21 History mcg (1,000 unit) tablet sodium chloride 0.65 % nasal spray 1 spray INTRANASAL TID PRN 05/28/21 11/10/21 History aerosol (Saline Nasal) umeclidinium 62.5 mcg/actuation 1 inh INHALATION DAILY 08/13/21 11/10/21 History blister powder for inhalation (Incruse Ellipta) aspirin 81 mg tablet,delayed 81 mg PO QAM 08/22/21 11/10/21 History release (Adult Aspirin Regimen) atorvastatin 20 mg tablet 20 mg PO HS #90 tab 08/22/21 11/10/21 Rx levothyroxine 50 mcg tablet 50 mcg PO DAILY #90 tab 08/22/21 11/10/21 Rx midodrine 10 mg tablet 10 mg PO TID #90 tab 08/22/21 11/10/21 Rx promethazine 25 mg tablet 25 mg PO TID PRN #90 tab 08/22/21 11/10/21 Rx tramadol 50 mg tablet 100 mg PO Q8 PRN #180 tab 08/22/21 11/10/21 Rx hydrocortisone acetate 30 mg 30 mg NE BID #20 ea 09/20/21 11/10/21 Rx rectal suppository pantoprazole 40 mg tablet,delayed 40 mg PO BID #60 tab 09/20/21 11/10/21 Rx release docusate sodium 100 mg capsule 100 mg PO BID 09/24/21 11/10/21 History duloxetine 20 mg capsule,delayed 40 mg PO QAM #60 cap 09/24/21 11/10/21 Rx release lidocaine 5 % topical patch 1 patch TOP DAILY PRN #15 ea 09/24/21 11/10/21 Rx torsemide 20 mg tablet 40 mg PO QAM 09/24/21 11/10/21 History metoprolol tartrate 25 mg tablet 12.5 mg PO BID 11/10/21 11/10/21 History Patient History Medical History Anemia Anxiety Asthma Atrial fibrillation Chronic kidney disease, stage 3 (moderate) F/U DR VILLAGOMEZ Chronic obstructive pulmonary disease with emphysema- on inhalers CML (chronic myelocytic leukemia) F/U DR [facility] Depression Diabetes mellitus, type 2 DIET MANAGED GERD (gastroesophageal reflux disease) Hyperlipidemia Hypertension Hypothyroidism Iron deficiency anemia Kidney stones HX Lung cancer, lower lobe 2017--left--sx, chemo On home oxygen therapy 2L n/c continuous Sleep apnea NO LONGER USING CPAP-USES ONLY OXYGEN CONTINUOUSLY SOBOE (shortness of breath on exertion) Stress incontinence in female Temporomandibular joint disorder PAIN BILAT-HAS NEVER LOCKED Surgical History History of appendectomy History of bronchoscopy 2017 History of cardiac cath 11/[address] [facility]--no stents History of cholecystectomy History of colonoscopy History of dilatation and curettage History of esophagogastroduodenoscopy (EGD) History of lobectomy of lung lower left lobe 2017 @ [facility] History of open reduction and internal fixation (ORIF) procedure R upper thigh x2--pins/rods in place History of tooth extraction all teeth History of total left knee replacement (TKR) History of total right knee replacement (TKR) Family History Sister Family history of reaction to anesthesia "had an allergic reaction", not sure what happened Arthritis Family history of diabetes mellitus Heart disease Hypertension Mother Family history of diabetes mellitus Myocardial infarction Heart disease Hypertension age 63 due to AL Grandmother Family history of diabetes mellitus maternal Family/Other Family history of diabetes mellitus maternal uncle/maternal aunts Colorectal cancer Family/Other Family hx of colon cancer paternal cousin Father age 91 Gout Denies family history of Crohn's disease Ulcerative colitis Social History Smoking Status: Unknown if ever smoked Tobacco Type: Cigarettes Age Started Using Tobacco: 8; Age Quit Using Tobacco: 62; Cigarettes Per Day: 2pks; Second Hand Exposure: No; Hx Alcohol Use: No Hx Substance Use: No Preferred Language: Ukrainian Communication Ability: Effective Visual Impairment: No Limitations Hearing Ability: Normal [employer] Required: No Beliefs That Will Affect Care: None marital status: / marital status details: twice; from 1st ; 2nd Current Living Situation: Family Current Living Situation Comment: lives in [place] current occupational status: retired current occupation: former nurse's aid How many Children do You have: 1 Other Information That Helps Us Care for You: No Feels Safe at Home: Yes Safety Concerns: Feels Safe At This Time Childhood Exposure to Second-Hand Smoke: No during the past year weight has: remained stable Dental Care, Regularly: No Physical Activity Frequency: Does not Exercise Seatbelt Use: always Sunscreen Use: No Assistive Devices: Denture - Upper, Denture - Lower and Glasses Review of Systems Review of Systems: A complete 10 point review of systems was reviewed with the patient with pertinent positives and negatives as per history of present illness. All else were negative. Physical Exam Physical Exam: VITAL SIGNS - Vital signs and nursing notes were reviewed. GENERAL - 66-year-old female appearing older than her stated age who is in mild respiratory distress. SKIN - Multiple bruises noted. HEAD - NC/AT. EYES - PERRL with EOMI bilaterally. Sclera anicteric. EARS - No deformities of external structures noted on gross examination bilaterally. NOSE - Midline and without cyanosis. No epistaxis or purulent drainage noted. MOUTH/OROPHARYNX - Without perioral cyanosis. Buccal mucosa pink and moist and dry. NECK - Neck with FROM. Supple to palpation. LUNGS - Tachypneic. Mild respiratory distress. Distant breath sounds that are coarse. CARDIAC - Tachycardia. Irregularly irregular. Slight KAI noted to the LEFT sternal boarder. ABDOMEN - Abdominal contour obese without pulsations or visible masses. Ostomy in place and draining stool. BS hypoactive. No tenderness, palpable masses, hepatosplenomegaly, or ascites noted. EXTREMITIES - No clubbing or peripheral cyanosis. Bilateral pretibial edema noted. +2/5 radial and dorsalis pedis pulses palpated throughout. +3/5 strength noted in UE/LE bilaterally. NEUROLOGIC - Cranial nerves II through XII grossly intact. PSYCH - A&Ox3 and cooperates fully with examiner. Pt is very pleasant despite state of discomfort. Results & Data Results & Data ([facility]) Vital Signs (Past 12 Hours) Vital Signs Temp Pulse Pulse Resp BP BP Pulse Ox 11/11/21 19:20 36.3 C L 135 H 136 H 18 83/48 L 78/47 L 94 11/11/21 19:10 36.3 C L 144 H 20 82/48 L 94 11/11/21 19:05 36.3 C L 145 H 29 H 73/40 L 92 11/11/21 19:00 36.3 C L 139 H 22 77/49 L 94 11/11/21 18:55 36.3 C L 138 H 22 77/49 L 11/11/21 18:50 124 H 18 83/46 L 94 11/11/21 18:40 132 H 18 77/59 L 94 11/11/21 18:30 133 H 18 82/54 L 94 11/11/21 18:20 36.0 C L 135 H 18 94 11/11/21 16:11 37.4 C 135 H 22 101/56 L 94 11/11/21 16:00 125 H 22 100/58 L 96 11/11/21 15:45 123 H 22 105/51 L 96 11/11/21 15:30 135 H 22 100/50 L 96 11/11/21 15:15 37.4 C 127 H 22 100/62 98 11/11/21 15:00 123 H 22 181/58 H 98 11/11/21 14:43 132 H 20 2 L 11/11/21 13:45 37.4 C 129 H 22 84/44 L 97 11/11/21 11:56 37.0 C 127 H 20 81/47 L 96 11/11/21 08:16 36.7 C 115 H 19 102/61 97 Coding Level of Care Code Critical Care 1st 30-74 mins Diagnoses Admitted to intensive care unit Z78.9 Status post cystoscopy Z98.890 Bladder hemorrhage N32.89 Acute blood loss anemia D62 Atrial fibrillation with rapid ventricular response I48.91 Acute kidney injury N17.9 Diabetes mellitus, type 2 E11.9 Chronic respiratory failure with hypoxia, on home O2 therapy J96.11; Z99.81 Hypotension I95.9 Chronic heart failure with preserved ejection fraction I50.32 CML (chronic myeloid leukemia) C92.10 Leukocytosis D72.829 Leukocytosis type: unspecified Chronic kidney disease, stage 3 (moderate) N18.3 Thrombocytosis D75.839 Hyperlipidemia E78.5 Hyperlipidemia type: unspecified On home oxygen therapy Z99.81 Lung cancer, lower lobe C34.30 Hypertension I10 Hypertension type: essential hypertension Time Spent (min) 68 (1) Hyperlipidemia Hyperlipidemia type: unspecified Qualified Code(s): E78.5 - Hyperlipidemia, unspecified (2) Leukocytosis Leukocytosis type: unspecified Qualified Code(s): D72.829 - Elevated white blood cell count, unspecified (3) Hypertension Hypertension type: essential hypertension Qualified Code(s): I10 - Essential (primary) hypertension
[2021-11-11] MEDS: PHENYLEPHRINE HCL 20 MG in DEXTROSE 5% 500 ML IV SCH (19:58)
[2021-11-11] MEDS ORDERED: HYDROCORTISONE SOD 100 MG in SYRINGE 0 ML IV ONE (20:00)
[2021-11-11] MEDS: HYDROmorphone INJ 0.5 MG/0.5 ML SYR IV PRN (20:25)
--- NOTE | 2021-11-11 20:26 | XRay Report ---
XR chest 1V portable CLINICAL HISTORY: sob. COMPARISON STUDY: 11/10/2021 TECHNIQUE: 1 view of the chest FINDINGS: Single frontal view of the chest demonstrates the heart size to be accentuated by the decreased inspi ratory effort. There is a decreased inspiratory effort with elevation of the hemidiaphragms and crowd ing of the bronchovascular markings at the lung bases and centrally. There is suspicion of mild centr al vascular congestion. No gross peripheral edema is seen. There is no evidence for pleural effusion. No alveolar opacities are identified. There is no acute osseous pathology. IMPRESSION: Decreased inspiration with evidence for mild central vascular congestion suspicious for e stephie cardiac decompensation. ACT 112: Negative or not required by law. Electronically signed by: Tigre Vasquez M.D. 11/11/2021 8:24 PM
--- NOTE | 2021-11-11 20:30 | Fluoroscopy Report ---
FL retrograde includes kub CLINICAL HISTORY: CYSTO COMPARISON STUDY: None FLUOROSCOPY TIME: 75 second. FLUOROSCOPIC IMAGES: 4 FINDINGS: There is evidence for contrast within the bladder on the last image. The bladder has a very irregular configuration on this image. IMPRESSION: Evidence for irregular bladder contour. Please see postsurgical report for further evalu ation. ACT 112: Negative or not required by law. Electronically signed by: Tigre Vasquez M.D. 11/11/2021 8:28 PM
[2021-11-11] MEDS: MONTELUKAST SODIUM 10 MG TABLET PO SCH (20:32)
[2021-11-11] MEDS: ATORVASTATIN 20 MG TAB PO SCH (20:33)
[2021-11-11 20:37] LABS: Hematocrit (blood only) 27.6 % (37-47); Hemoglobin 8.8 g/dL (12.0-16.0); Mean Corpuscular Hgb Conc 31.9 g/dL (32-36); Mean Corpuscular Volume 91.1 fL (80-100); Mean Platelet Volume 11.2 fL (7.4-10.4); Nucleated RBC # (auto) 0.62 K/uL (0-0); Nucleated RBC % (auto) 0.8 %; Platelet Count 702 K/uL (130-400); RDW Coefficient of Variation 16.8 % (11.5-14.5); Red Blood Count 3.03 M/uL (4.2-5.4); White Blood Count 75.73 K/uL (4.8-10.8)
[2021-11-11 20:49] LABS: BUN Creatinine Ratio 21.9 (10-20); Blood Urea Nitrogen 51 mg/dl (7-18); Carbon Dioxide 19 mmol/L (21-32); Chloride 111 mmol/L (98-107); Creatinine Clr Calc Pharmacy 26.1 ml/min; Est GFR (Non-African American) 20.7 ml/min; Glucose 169 mg/dl (70-99); Magnesium 1.5 mg/dl (1.8-2.4); Potassium 4.2 mmol/L (3.5-5.1); Sodium 142 mmol/L (136-145)
[2021-11-11 20:54] LABS: Phosphorus 5.1 mg/dl (2.5-4.9); Troponin I < 0.015 ng/ml (0-0.045)
[2021-11-11 21:05] LABS: iSTAT Allen Test Pass; iSTAT Arterial Blood Gas HCO3 15 meg/L (19-24); iSTAT Arterial Blood Gas pCO2 41 mmHg (35-46); iSTAT Arterial Blood Gas pH 7.18 (7.35-7.45); iSTAT Arterial Blood Gas pO2 74 mmHg (80-95); iSTAT Carbon Dioxide 17 mmol/L (24-31); iSTAT FiO2 4 %; iSTAT Site R Radial
[2021-11-11 21:07] LABS: Echinocytes 1+; Polychromasia 1+
[2021-11-11] MEDS ORDERED: SODIUM BICARB 8.4% INJ 50 MEQ/50 ML SYR IV STA (21:12)
[2021-11-11] MEDS ORDERED: SODIUM BICARBONATE 8.4% 150 MEQ in WATER, STERILE 1,000 ML IV SCH (21:30)
[2021-11-11] MEDS ORDERED: CALCIUM GLUCONATE 10% 2,000 MG in SODIUM CHLORIDE 0.9% 50 ML IV ONE (21:30)
[2021-11-11 21:42] LABS: ALC (manual) 2.65 K/uL (1.2-3.4); ANC (manual) 58.39 K/uL (1.4-6.5); Basophils # (manual) 4.01 K/uL (0-0.2); Basophils % (manual) 5.3 %; Blast # (manual) 0.68 K/uL (0-0); Blast Cells % (manual) 0.9 %; Eosinophils # (manual) 4.01 K/uL (0-0.5); Eosinophils % (manual) 5.3 %; Lymphocytes # (manual) 2.65 K/uL (1.2-3.4); Lymphocytes % (manual) 3.5 %; Metamyelocytes # (manual) 2.65 K/uL (0-0); Metamyelocytes % (manual) 3.5 %; Monocytes # (manual) 1.97 K/uL (0.11-0.59); Monocytes % (manual) 2.6 %; Myelocytes # (manual) 1.36 K/uL (0-0); Myelocytes % (manual) 1.8 %; Neutrophils # (manual) 58.39 K/uL (1.4-6.5); Neutrophils % (manual) 77.1 %
[2021-11-11] MEDS: MAGNESIUM SULFATE / D5W 1 GM/100 ML BAG IV SCH (22:05)
[2021-11-11] MEDS: DIGOXIN 125 MCG in SYRINGE 9.5 ML IV SCH (22:17)
[2021-11-11] MEDS ORDERED: DIGOXIN 125 MCG in SYRINGE 9.5 ML IV ONE (23:00)
[2021-11-12] MEDS: PHENYLEPHRINE HCL 20 MG in DEXTROSE 5% 500 ML IV SCH (00:10)
[2021-11-12] MEDS: MAGNESIUM SULFATE / D5W 1 GM/100 ML BAG IV SCH ×3 (00:33→07:43)
[2021-11-12] MEDS ORDERED: HYDROCORTISONE SOD 50 MG in SYRINGE 0 ML IV SCH (03:00)
[2021-11-12] MEDS: DIGOXIN 125 MCG in SYRINGE 9.5 ML IV SCH ×2 (03:48→10:56)
[2021-11-12 05:19] LABS: iSTAT Arterial Blood Gas HCO3 20 meg/L (19-24); iSTAT Arterial Blood Gas pCO2 37 mmHg (35-46); iSTAT Arterial Blood Gas pH 7.35 (7.35-7.45); iSTAT Arterial Blood Gas pO2 41 mmHg (80-95); iSTAT Carbon Dioxide 21 mmol/L (24-31); iSTAT Site L Radial
[2021-11-12 05:30] LABS: INR 1.3 (0.9-1.1); Prothrombin Time 13.2 Seconds (9.0-12.0)
[2021-11-12 05:37] LABS: Hematocrit (blood only) 24.6 % (37-47); Hemoglobin 8.1 g/dL (12.0-16.0); Mean Corpuscular Hemoglobin 29.5 pg (25-34); Mean Corpuscular Hgb Conc 32.9 g/dL (32-36); Mean Corpuscular Volume 89.5 fL (80-100); Mean Platelet Volume 11.7 fL (7.4-10.4); Nucleated RBC # (auto) 0.79 K/uL (0-0); Nucleated RBC % (auto) 0.8 %; Platelet Count 599 K/uL (130-400); RDW Coefficient of Variation 16.4 % (11.5-14.5); RDW Standard Deviation 52.6 fL (36.4-46.3); Red Blood Count 2.75 M/uL (4.2-5.4); White Blood Count 99.98 K/uL (4.8-10.8)
[2021-11-12 05:39] LABS: Basophils # (auto) 0.56 K/uL (0-0.2); Basophils % (auto) 0.6 %; Eosinophils # (auto) 0.04 K/uL (0-0.5); Immature Granulocytes # (auto) 6.33 K/uL (0.00-0.02); Immature Granulocytes % (auto) 6.3 %; Lymphocytes % (auto) 3.5 %; Monocytes # (auto) 0.79 K/uL (0.11-0.59); Monocytes % (auto) 0.8 %; Neutrophils # (auto) 88.76 K/uL (1.4-6.5); Neutrophils % (auto) 88.8 %; RBC Morphology Unremarkable
[2021-11-12 05:43] LABS: Albumin Level 1.8 gm/dl (3.4-5.0); BUN Creatinine Ratio 22.6 (10-20); Bilirubin Direct 0.2 mg/dl (0-0.2); Bilirubin,Total 0.6 mg/dl (0.2-1); Calcium 6.4 mg/dl (8.5-10.1); Creatinine Clr Calc Pharmacy 30.1 ml/min; Est GFR (African American) 28.5 ml/min; Est GFR (Non-African American) 24.6 ml/min; Magnesium 1.5 mg/dl (1.8-2.4); Phosphorus 4.4 mg/dl (2.5-4.9); Potassium 3.2 mmol/L (3.5-5.1); Total Protein 3.9 gm/dl (6.4-8.2)
[2021-11-12] MEDS: LEVOTHYROXINE SODIUM 50 MCG TABLET PO SCH (05:44)
[2021-11-12] MEDS ORDERED: ALBUMIN 25% 100 mL 25 GM/100 ML VIAL IV ONE (05:45)
[2021-11-12] MEDS ORDERED: CALCIUM GLUCONATE 10% 3,000 MG in 0.9 % SODIUM CHLORIDE 100 ML IV ONE ×2 (06:00→09:15)
[2021-11-12] MEDS: NORMOSOL-R 1,000 ML IV SCH ×2 (06:20→17:35)
[2021-11-12] MEDS: POTASSIUM CHLORIDE / WTR 10 MEQ/100 ML PLCT IV SCH ×4 (06:20→10:55)
[2021-11-12] MEDS: PHENYLEPHRINE HCL 20 MG in SODIUM CHLORIDE 0.9% 500 ML IV SCH ×4 (07:42→21:22)
--- NOTE | 2021-11-12 08:29 | Urology Progress Note ---
Date of Service November 12, 2021 Assessment & Plan Plan: 66yo F with multiple comorbidities admitted with anemia, gross hematuria. - POD #1 s/p Cystoscopy with cystogram, Extensive clot Evacuation, transurethral resection of bladder tumor, large, and extensive fulguration with Dr. Harding. - - Pt afebrile - Labs reviewed- - Urine culture pending; Blood culture pending - Continues on IV Ceftriaxone. - Shahid intact - Maintain Shahid catheter, OK to gently hand irrigate as needed for clots, retention, suprapubic pain - - Continue supportive care and close monitoring. - Will continue to follow. Admission and Anticipated Discharge Date Admission Date: November 10, 2021 Results & Data ([facility]) Vital Signs (Past 12 Hours) Vital Signs Temp Pulse Resp BP Pulse Ox 11/12/21 06:00 127 H 24 85/65 L 98 11/12/21 05:10 82/69 L 11/12/21 05:00 133 H 26 H 89/57 L 98 11/12/21 04:10 142 H 32 H 90/54 L 97 11/12/21 04:00 36.6 C 146 H 36 H 87/59 L 97 11/12/21 03:50 150 H 22 92/58 L 92 11/12/21 03:48 138 H 11/12/21 03:40 133 H 34 H 89/53 L 94 11/12/21 03:30 127 H 28 H 91/52 L 98 11/12/21 03:00 143 H 21 90/51 L 94 11/12/21 02:50 141 H 24 94/63 L 96 11/12/21 02:40 142 H 27 H 104/51 L 100 11/12/21 02:30 148 H 35 H 88/62 L 98 11/12/21 02:20 143 H 18 94/63 L 98 11/12/21 02:10 143 H 31 H 94/60 L 99 11/12/21 02:00 136 H 28 H 94/57 L 97 11/12/21 01:40 147 H 26 H 93/67 L 100 11/12/21 01:30 136 H 37 H 89/60 L 100 11/12/21 01:10 133 H 20 91/66 L 76 L 11/12/21 00:40 143 H 27 H 94/68 L 97 11/12/21 00:30 140 H 21 102/60 96 11/12/21 00:20 135 H 17 112/70 96 11/12/21 00:10 134 H 18 94/59 L 95 11/12/21 00:00 36.6 C 100/67 11/11/21 23:40 95/73 L 11/11/21 23:30 102/68 11/11/21 23:15 147 H 22 99 11/11/21 23:10 137 H 17 95/66 L 96 11/11/21 23:08 148 H 11/11/21 23:00 130 H 31 H 96/68 L 99 11/11/21 22:50 152 H 19 97/68 L 97 11/11/21 22:45 155 H 27 H 96 11/11/21 22:40 141 H 21 99/63 L 96 11/11/21 22:30 142 H 22 111/61 96 11/11/21 22:20 133 H 19 93/62 L 95 11/11/21 22:17 141 H 11/11/21 22:10 17 82/68 L 96 11/11/21 22:01 36.4 C L 143 H 18 97/84 L 93 11/11/21 22:00 21 93 11/11/21 21:58 36.4 C L 145 H 20 107/79 100 11/11/21 21:50 180 H 23 123/74 98 11/11/21 21:45 150 H 25 H 97/62 L 94 11/11/21 21:30 150 H 21 107/74 91 11/11/21 21:20 147 H 23 97/69 L 96 11/11/21 21:11 152 H 27 H 78/62 L 93 11/11/21 21:01 24 90/61 L 96 11/11/21 21:00 117 H 22 97 11/11/21 20:41 25 H 76/47 L 99 11/11/21 20:30 36.4 C L 137 H 28 H 84/61 L 100 11/11/21 20:25 152 H 24 80/60 L 99 PG Care Time/CCT Total # of Minutes Spent Total Time Spent with Patient: Total time spent is greater than 50% in coordination of care (as documented) at patient's floor/unit and/or counseling patient: Coding
--- NOTE | 2021-11-12 08:32 | XRay Report ---
XR chest 1V portable HISTORY: 66 years-old Female f/u follow-up study in a patient with shortness of breath COMPARISON: Chest radiograph 11/11/2021 TECHNIQUE: Portable AP view of the chest FINDINGS: Cardiac silhouette is enlarged. There is no pneumothorax. Small pleural effusions. Pulmonary vascular congestion with interstitial coarsening. Degenerative changes of the shoulders and spine. Surgical c lips project over the retrocardiac distribution. Degenerative changes of the shoulders and spine. IMPRESSION: 1. Cardiomegaly with pulmonary edema. 2. Unchanged layering pleural effusions with bibasilar opacities. ACT 112: Negative or not required by law. The above report was generated using voice recognition software. It may contain grammatical, syntax o r spelling errors. Electronically signed by: Wayne Cortez M.D. 11/12/2021 8:31 AM
--- NOTE | 2021-11-12 08:47 | Critical Care Progress Note ---
Date of Service November 12, 2021 Assessment & Plan (1) Admitted to intensive care unit: (2) Status post cystoscopy: (3) Bladder hemorrhage: (4) Acute blood loss anemia: (5) Atrial fibrillation with rapid ventricular response: (6) Acute kidney injury: (7) Diabetes mellitus, type 2: (8) Chronic respiratory failure with hypoxia, on home O2 therapy: (9) Hypotension: (10) Chronic heart failure with preserved ejection fraction: (11) CML (chronic myeloid leukemia): (12) Leukocytosis: (13) Chronic kidney disease, stage 3 (moderate): (14) Thrombocytosis: (15) Hyperlipidemia: (16) On home oxygen therapy: (17) Lung cancer, lower lobe: (18) Hypertension: Plan: Impression: 63-year-old female with significant history of CML, chronic anemia, COPD, lung CA status post left lower lobe resection, asthma, CKD 3, and A. fib who is with acute blood loss in the setting of bladder hemorrhage who is status post cystoscopy with hemodynamic instability in the setting of acute blood loss anemia and A. fib requiring close hemodynamic monitoring, pressor support, blood product administration, etc. 24-hour events: Patient taken to the OR. Findings were reviewed. Appears to have in extraperitoneal bladder rupture with diffuse bleeding. Clot was evacuated. Biopsies were taken and are pending. Postoperatively she had atrial fibrillation with rapid ventricular response and hypotension. Cardiology consult was obtained. With a side away from antiarrhythmic therapy or conversion given longstanding potential A. fib and risk for stroke. Unfortunately she remained hypotensive requiring necessitation of Dima-Synephrine which has been increasing. She continues to have bloody drainage from her kelley. She remains in atrial fibrillation with rapid ventricular response. Cardiology consult in progress Recommendations NEURO -patient remains intermittently encephalopathic likely secondary to underlying metabolic etiologies. Continue pain management as needed. CARDIAC/VASCULAR -atrial fibrillation with rapid ventricular response. Patient has a longstanding history of chronic A. fib in the outpatient setting and has been on midodrine likely for hypotension. Await cardiology consultation. Digoxin has been initiated. Patient on steroids for relative adrenal insufficiency. We will add Florinef. Continue Dima-Synephrine. The patient declines placement of a central line or arterial line currently and does not want any escalation of care beyond what she is currently receiving. RESPIRATORY -history of COPD and lung cancer status postresection. Oxygen dependent at baseline. Continue supplemental oxygen. Confirmed DNI status. Does not appear bronchospastic currently. Chest x-ray demonstrates low lung volumes with possible small bilateral effusions. May consider diuresis as tolerated GI/NUTRITION -diet based on need for additional surgical intervention. Can likely advance to clears unless pressor requirements are escalating. Nutritional consult RENAL/LYTES -acute on chronic kidney disease with significant metabolic acidosis improved with bicarb. She is established with Dr. Molina in the outpatient setting. Will obtain nephrology consultation given her acidosis -hemorrhagic bladder, we will follow-up on pathology reports. Most interventions for diffuse hemorrhagic cystitis not possible given the rupture. Continuous bladder irrigation not appropriate given bladder rupture as well. Discussed with urology today. They think she may be clearing somewhat and recommended continued supportive care. No indication for repeat surgical evaluation currently. Continue gentle bladder irrigation. Kelley will need to remain in place given the rupture for several weeks until outpatient follow-up with urology ENDO -glycemic control per protocol. Continue home thyroxine. On cortisol and Florinef for relative adrenal insufficiency HEME -CML, established with cancer care. Consult pending. Check fibrinogen. Replacing calcium. Holding chemotherapeutic agents at this point time. White count up to about 100,000. Nucleated red cells and immature granulocytes identified including 9% blasts, unclear if this is an accelerated leukemic phase. If so, would likely protend worse prognosis. ID -day #2 Rocephin. Pinpoint urine culture. Await final sensitivity. Continue antibiotics for now. Lactate improving LINES/IV ACCESS - * PIVs x2 * Endurance catheters x2 * Kelley * Patient declines arterial lines and central line currently DVT PROPHYLAXIS - * Hold on chemoprophylaxis in the setting of active bladder hemorrhage. * SCDs CODE STATUS - * Confirmed DNR/DNI. Palliative care may be appropriate depending on input from consultants I have personally spent 54 minutes of critical care time in the direct management of this patient. This is a life/limb threatening event. This includes time spent evaluating patient, direct bedside care, chart review, placing orders, interpretation of diagnostic studies, discussion with consultants, patient, and family members, as well as other required patient management activities. This time is exclusive of all separately billable procedures, and teaching time and separate from and in addition to any other critical care service time. Admission and Anticipated Discharge Date Admission Date: November 10, 2021 Subjective Patient seen and examined. EMR reviewed. Discussed with critical care PHYLLIS overnight. Patient appears somnolent but arousable. She is able to converse but does doze off during conversations. She denies chest pain. She refuses additional interventions including line placement. Review of Systems Review of Systems: All systems reviewed & are unremarkable except as noted in Subjective Physical Exam Constitutional: + ill appearing, + obese, + frail appearing and + lethargic Neck: trachea midline, no thyromegaly Respiratory: normal respiratory effort, lungs clear to auscultation Cardiovascular: RRR, no murmur, no edema Gastrointestinal (Abdomen): Midline stoma. Bowel sounds are present. Mildly tender to palpation Musculoskeletal: Extremities: extremities normal to inspection Skin: no rashes, warm and dry Neurologic: Nonfocal exam Lymphatic: no cervical lymphadenopathy Results & Data Results & Data ([facility]) Vital Signs (Past 12 Hours) Vital Signs Temp Pulse Resp BP Pulse Ox 11/12/21 06:00 127 H 24 85/65 L 98 11/12/21 05:10 82/69 L 11/12/21 05:00 133 H 26 H 89/57 L 98 11/12/21 04:10 142 H 32 H 90/54 L 97 11/12/21 04:00 36.6 C 146 H 36 H 87/59 L 97 11/12/21 03:50 150 H 22 92/58 L 92 11/12/21 03:48 138 H 11/12/21 03:40 133 H 34 H 89/53 L 94 11/12/21 03:30 127 H 28 H 91/52 L 98 11/12/21 03:00 143 H 21 90/51 L 94 11/12/21 02:50 141 H 24 94/63 L 96 11/12/21 02:40 142 H 27 H 104/51 L 100 11/12/21 02:30 148 H 35 H 88/62 L 98 11/12/21 02:20 143 H 18 94/63 L 98 11/12/21 02:10 143 H 31 H 94/60 L 99 11/12/21 02:00 136 H 28 H 94/57 L 97 11/12/21 01:40 147 H 26 H 93/67 L 100 11/12/21 01:30 136 H 37 H 89/60 L 100 11/12/21 01:10 133 H 20 91/66 L 76 L 11/12/21 00:40 143 H 27 H 94/68 L 97 11/12/21 00:30 140 H 21 102/60 96 11/12/21 00:20 135 H 17 112/70 96 11/12/21 00:10 134 H 18 94/59 L 95 11/12/21 00:00 36.6 C 100/67 11/11/21 23:40 95/73 L 11/11/21 23:30 102/68 11/11/21 23:15 147 H 22 99 11/11/21 23:10 137 H 17 95/66 L 96 11/11/21 23:08 148 H 11/11/21 23:00 130 H 31 H 96/68 L 99 11/11/21 22:50 152 H 19 97/68 L 97 11/11/21 22:45 155 H 27 H 96 11/11/21 22:40 141 H 21 99/63 L 96 11/11/21 22:30 142 H 22 111/61 96 11/11/21 22:20 133 H 19 93/62 L 95 11/11/21 22:17 141 H 11/11/21 22:10 17 82/68 L 96 11/11/21 22:01 36.4 C L 143 H 18 97/84 L 93 11/11/21 22:00 21 93 11/11/21 21:58 36.4 C L 145 H 20 107/79 100 11/11/21 21:50 180 H 23 123/74 98 11/11/21 21:45 150 H 25 H 97/62 L 94 11/11/21 21:30 150 H 21 107/74 91 11/11/21 21:20 147 H 23 97/69 L 96 11/11/21 21:11 152 H 27 H 78/62 L 93 11/11/21 21:01 24 90/61 L 96 11/11/21 21:00 117 H 22 97 Critical Care Results & Data Vital Signs (Past 12 Hours) Vital Signs Temp Pulse Resp BP Pulse Ox 11/12/21 06:00 127 H 24 85/65 L 98 11/12/21 05:10 82/69 L 11/12/21 05:00 133 H 26 H 89/57 L 98 11/12/21 04:10 142 H 32 H 90/54 L 97 11/12/21 04:00 36.6 C 146 H 36 H 87/59 L 97 11/12/21 03:50 150 H 22 92/58 L 92 11/12/21 03:48 138 H 11/12/21 03:40 133 H 34 H 89/53 L 94 11/12/21 03:30 127 H 28 H 91/52 L 98 11/12/21 03:00 143 H 21 90/51 L 94 11/12/21 02:50 141 H 24 94/63 L 96 11/12/21 02:40 142 H 27 H 104/51 L 100 11/12/21 02:30 148 H 35 H 88/62 L 98 11/12/21 02:20 143 H 18 94/63 L 98 11/12/21 02:10 143 H 31 H 94/60 L 99 11/12/21 02:00 136 H 28 H 94/57 L 97 11/12/21 01:40 147 H 26 H 93/67 L 100 11/12/21 01:30 136 H 37 H 89/60 L 100 11/12/21 01:10 133 H 20 91/66 L 76 L 11/12/21 00:40 143 H 27 H 94/68 L 97 11/12/21 00:30 140 H 21 102/60 96 11/12/21 00:20 135 H 17 112/70 96 11/12/21 00:10 134 H 18 94/59 L 95 11/12/21 00:00 36.6 C 100/67 11/11/21 23:40 95/73 L 11/11/21 23:30 102/68 11/11/21 23:15 147 H 22 99 11/11/21 23:10 137 H 17 95/66 L 96 11/11/21 23:08 148 H 11/11/21 23:00 130 H 31 H 96/68 L 99 11/11/21 22:50 152 H 19 97/68 L 97 11/11/21 22:45 155 H 27 H 96 11/11/21 22:40 141 H 21 99/63 L 96 11/11/21 22:30 142 H 22 111/61 96 11/11/21 22:20 133 H 19 93/62 L 95 11/11/21 22:17 141 H 11/11/21 22:10 17 82/68 L 96 11/11/21 22:01 36.4 C L 143 H 18 97/84 L 93 11/11/21 22:00 21 93 11/11/21 21:58 36.4 C L 145 H 20 107/79 100 11/11/21 21:50 180 H 23 123/74 98 11/11/21 21:45 150 H 25 H 97/62 L 94 11/11/21 21:30 150 H 21 107/74 91 11/11/21 21:20 147 H 23 97/69 L 96 11/11/21 21:11 152 H 27 H 78/62 L 93 Lab & Micro Results (Past 24 Hours) RBC 2.75 M/uL (4.2-5.4) L 11/12/21 WBC 99.98 K/uL (4.8-10.8) H* 11/12/21 Hgb 8.1 g/dL (12.0-16.0) L 11/12/21 Hct 24.6 % (37-47) L 11/12/21 MCV 89.5 fL (80-100) 11/12/21 MCH 29.5 pg (25-34) 11/12/21 MCHC 32.9 g/dL (32-36) 11/12/21 RDW Standard Deviation 52.6 fL (36.4-46.3) H 11/12/21 RDW Coefficient of Variation 16.4 % (11.5-14.5) H 11/12/21 Plt Count 599 K/uL (130-400) H 11/12/21 MPV 11.7 fL (7.4-10.4) H 11/12/21 Nucleated Red Blood Cells % (auto) 0.8 % 11/12/21 Nucleated RBC Absolute Count (auto) 0.79 K/uL (0-0) H 11/12/21 Neutrophils (%) (Auto) 88.8 % 11/12/21 Lymphocytes (%) (Auto) 3.5 % 11/12/21 Monocytes # (Auto) 0.79 K/uL (0.11-0.59) H 11/12/21 Eosinophils # (Auto) 0.04 K/uL (0-0.5) 11/12/21 Immature Granulocyte % (Auto) 6.3 % 11/12/21 Neutrophils # (Auto) 88.76 K/uL (1.4-6.5) H 11/12/21 Lymphocytes # (Auto) 3.50 K/uL (1.2-3.4) H 11/12/21 Monocytes # (Auto) 0.79 K/uL (0.11-0.59) H 11/12/21 Eosinophils # (Auto) 0.04 K/uL (0-0.5) 11/12/21 Basophils # (Auto) 0.56 K/uL (0-0.2) H 11/12/21 Immature Granulocyte # (Auto) 6.33 K/uL (0.00-0.02) H 11/12/21 ANC 58.39 K/uL (1.4-6.5) H 11/11/21 ALC 2.65 K/uL (1.2-3.4) 11/11/21 Neutrophils % (Manual) 77.1 % 11/11/21 Lymphocytes % (Manual) 3.5 % 11/11/21 Monocytes % (Manual) 2.6 % 11/11/21 Eosinophils % (Manual) 5.3 % 11/11/21 Basophils % (Manual) 5.3 % 11/11/21 Metamyelocytes % (manual) 3.5 % 11/11/21 Myelocytes % (Manual) 1.8 % 11/11/21 Blast Cells % (Manual) 0.9 % 11/11/21 Neutrophils # (Manual) 58.39 K/uL (1.4-6.5) H 11/11/21 Lymphocytes # (Manual) 2.65 K/uL (1.2-3.4) 11/11/21 Monocytes # (Manual) 1.97 K/uL (0.11-0.59) H 11/11/21 Eosinophils # (Manual) 4.01 K/uL (0-0.5) H 11/11/21 Basophils # (Manual) 4.01 K/uL (0-0.2) H 11/11/21 Metamyelocytes # (Manual) 2.65 K/uL (0-0) H 11/11/21 Myelocytes # (Manual) 1.36 K/uL (0-0) H 11/11/21 Blast Cells # (Manual) 0.68 K/uL (0-0) H 11/11/21 Red Blood Cell Morphology Unremarkable 11/12/21 Polychromasia 1+ 11/11/21 Echinocytes 1+ 11/11/21 Na 138 mmol/L (136-145) 11/12/21 K 3.2 mmol/L (3.5-5.1) L 11/12/21 Cl 101 mmol/L (98-107) 11/12/21 CO2 30 mmol/L (21-32) 11/12/21 Anion Gap 7.0 (3-11) 11/12/21 BUN 46 mg/dl (7-18) H 11/12/21 Creatinine 2.03 mg/dl (0.6-1.2) H 11/12/21 Estimated GFR ( Amer) 28.5 ml/min 11/12/21 Estimated GFR (Non-Af Amer) 24.6 ml/min 11/12/21 BUN/Creatinine Ratio 22.6 (10-20) H 11/12/21 Glu 114 mg/dl (70-99) H 11/12/21 Ca 6.4 mg/dl (8.5-10.1) L 11/12/21 Phosphorus Level 4.4 mg/dl (2.5-4.9) 11/12/21 Total Bilirubin 0.6 mg/dl (0.2-1) 11/12/21 Direct Bilirubin 0.2 mg/dl (0-0.2) 11/12/21 AST 22 U/L (15-37) 11/12/21 ALT 11 (12-78) L 11/12/21 Alkaline Phosphatase 71 U/L (45-117) 11/12/21 TP 3.9 gm/dl (6.4-8.2) L 11/12/21 Albumin 1.8 gm/dl (3.4-5.0) L 11/12/21 Mg 1.5 mg/dl (1.8-2.4) L 11/12/21 05:08 11/12/21 Calcium Level 6.4 mg/dl (8.5-10.1) L 11/12/21 05:08 11/12/21 Prothromb Time International Ratio 1.3 (0.9-1.1) H 11/12/21 05:08 11/12/21 Lobo Test NA 11/12/21 04:53 11/12/21 Microbiology 11/10/21 06:12 Urine Culture - Preliminary Urine,Straight Cath Pin-point growth present, reincubating. Diagnostic Findings (Past 24 Hours) Retrograde Pyelogram 11/11/21 00:00 FL retrograde includes kub CLINICAL HISTORY: CYSTO COMPARISON STUDY: None FLUOROSCOPY TIME: 75 second. FLUOROSCOPIC IMAGES: 4 FINDINGS: There is evidence for contrast within the bladder on the last image. The bladder has a very irregular configuration on this image. IMPRESSION: Evidence for irregular bladder contour. Please see postsurgical report for further evaluation. ACT 112: Negative or not required by law. Electronically signed by: Tigre Vasquez M.D. 11/11/2021 8:28 PM Chest X-Ray 11/11/21 19:44 XR chest 1V portable CLINICAL HISTORY: sob. COMPARISON STUDY: 11/10/2021 TECHNIQUE: 1 view of the chest FINDINGS: Single frontal view of the chest demonstrates the heart size to be accentuated by the decreased inspiratory effort. There is a decreased inspiratory effort with elevation of the hemidiaphragms and crowding of the bronchovascular markings at the lung bases and centrally. There is suspicion of mild central vascular congestion. No gross peripheral edema is seen. There is no evidence for pleural effusion. No alveolar opacities are identified. There is no acute osseous pathology. IMPRESSION: Decreased inspiration with evidence for mild central vascular congestion suspicious for early cardiac decompensation. ACT 112: Negative or not required by law. Electronically signed by: Tigre Vasquez M.D. 11/11/2021 8:24 PM Chest X-Ray 11/12/21 07:00 XR chest 1V portable HISTORY: 66 years-old Female f/u follow-up study in a patient with shortness of breath COMPARISON: Chest radiograph 11/11/2021 TECHNIQUE: Portable AP view of the chest FINDINGS: Cardiac silhouette is enlarged. There is no pneumothorax. Small pleural effusions. Pulmonary vascular congestion with interstitial coarsening. Degenerative changes of the shoulders and spine. Surgical clips project over the retrocardiac distribution. Degenerative changes of the shoulders and spine. IMPRESSION: 1. Cardiomegaly with pulmonary edema. 2. Unchanged layering pleural effusions with bibasilar opacities. ACT 112: Negative or not required by law. The above report was generated using voice recognition software. It may contain grammatical, syntax or spelling errors. Electronically signed by: Wayne Cortez M.D. 11/12/2021 8:31 AM I & O Totals 24 Hours 11/11/21 11/12/21 11/13/21 06:59 06:59 06:59 Intake Total 6255 / 6255 2557.810 / 2557.810 1801.883 / 1801.883 Output Total 4750 / 4750 4155 / 4155 Balance 1505 / 1505 -1597.190 / -9419.907 2970.883 / 1801.883 Cumulative 11/10/21 04:52 thru 11/12/21 08:30 Intake Total 88449.693 Output Total 8905 Balance 1709.693 RT Ventilator Mngmt (Last Documented) Ventilator Ordered Settings Respiratory Rate 24 11/12/21 06:00 Ventilator - PT Measurements Respiratory Rate 24 Coding Level of Care Code Critical Care 1st 30-74 mins Diagnoses Admitted to intensive care unit Z78.9 Status post cystoscopy Z98.890 Bladder hemorrhage N32.89 Acute blood loss anemia D62 Atrial fibrillation with rapid ventricular response I48.91 Acute kidney injury N17.9 Diabetes mellitus, type 2 E11.9 Chronic respiratory failure with hypoxia, on home O2 therapy J96.11; Z99.81 Hypotension I95.9 Chronic heart failure with preserved ejection fraction I50.32 CML (chronic myeloid leukemia) C92.10 Leukocytosis D72.829 Leukocytosis type: unspecified Chronic kidney disease, stage 3 (moderate) N18.3 Thrombocytosis D75.839 Hyperlipidemia E78.5 Hyperlipidemia type: unspecified On home oxygen therapy Z99.81 Lung cancer, lower lobe C34.30 Hypertension I10 Hypertension type: essential hypertension Time Spent (min) 54 (1) Leukocytosis Leukocytosis type: unspecified Qualified Code(s): D72.829 - Elevated white blood cell count, unspecified (2) Hyperlipidemia Hyperlipidemia type: unspecified Qualified Code(s): E78.5 - Hyperlipidemia, unspecified (3) Hypertension Hypertension type: essential hypertension Qualified Code(s): I10 - Essential (primary) hypertension
--- NOTE | 2021-11-12 08:49 | Electrocardiogram Report ---
Test Reason : Blood Pressure : / mmHG Vent. Rate : 141 BPM Atrial Rate : 416 BPM P-R Int : 000 ms QRS Dur : 070 ms QT Int : 326 ms P-R-T Axes : 000 008 149 degrees QTc Int : 499 ms Poor data quality, interpretation may be adversely affected Atrial fibrillation with rapid ventricular response Low voltage QRS Diffuse Nonspecific T wave abnormality Abnormal ECG When compared with ECG of 10-NOV-2021 08:55, HR has increased by 20 bpm Otherwise no significant change Confirmed by Jaquan Rosenbaum ([id number]) on 11/12/2021 8:48:41 AM Referred By: REFERRED SELF Confirmed By:Jaquan Rosenbaum
[2021-11-12] MEDS ORDERED: HYDROXYUREA 500 MG CAP PO SCH (09:00)
[2021-11-12] MEDS ORDERED: STAT IV Infusion **Titration per Protocol STA (09:06)
--- NOTE | 2021-11-12 09:13 | Cardiology Consultation ---
Date of Consultation November 12, 2021 Assessment & Plan (1) Atrial fibrillation with rapid ventricular response: Mrs. Schilling is a 66 year old female with a history of CML, Type 2 DM, Stage 3 CKD, COPD, Non-Small Cell Lung Cancer s/p Left Lobectomy, Emphysema/COPD on Chronic O2, GERD, Sleep Apnea, Hyperlipidemia, Hypothyroidism, Chronic Hypotension (on Midodrine 10 mg t.i.d.), and Paroxysmal Atrial Fibrillation who was admitted on 11/10/21 after presenting with severe lower abdominal pain, gross hematuria, and an acute blood loss anemia with a Hgb of 6.7 g/dL. She underwent cystoscopy on 11/11/21 with evacuation of 1500 cc of clot. As per Dr. Harding report"Innumerable bladder lesions and ulceration found throughout bladder. Large amount of clot at region of anterior bladder/dome. On assessment patient found to have what appeared to be a bladder rupture. Cystogram was completed and found to be extraperitoneal with no extravasation of contrast into the peritoneum. Extensive fulguration and attempted control of bleeding ulcerated, inflamed, and irritated bladder lining". Patient has a Shahid catheter and still has gross hematuria. She has received 6 units of PRBC's so far and 1 unit of FFP. Hgb is up to 8.1 g/dL today. Throughout this hospitalization patient has been in rapid A-Fib with heart rates in the 120's to 140's. She does describe intermittent palpitations, intermittent lightheadedness, and chronic dyspnea -- but these are chronic symptoms for her and are not necessarily worse now than they are at baseline. Patient also has intermittent, atypical chest pain that does not radiate, is unrelated to exertion, and it is without associated symptoms. She specifically denies any associated nausea, vomiting, diaphoresis, or dyspnea. The chest discomfort seems to migrate around in her chest. IV Digoxin has been initiated but her HR remains high, Digoxin level today is therapeutic at 1.9 ng/ml. Patient is chronically hypotensive, and remains so during this hospitalization. She is on a Phenylephrine drip and her SBP's are running in the 80's and 90's. Patient has a history of PAF but is not chronically anticoagulated -- due to past bleeding issues. She is not a candidate for anticoagulation at this time due to bladder hemorrhage. Fortunately, despite her elevated HR her Troponin I has been undetectable x 2 on 11/10/21 and 11/11/21. Recommend the followin. Begin low dose Esmolol drip for improved rate control -- I spoke directly to the pharmacist. I suspect her BP will come up by slowing HR, increasing diastolic filling time which allows for larger SV. 2. Serum Digoxin level is therapeutic at 1.9 ng/ml, convert to oral Digoxin 125 every other day due to CKD. 3. Recheck Digoxin level in 2 to 3 days. 4. Anticoagulation is currently contraindicated due to bladder hemorrhage and acute blood loss anemia, transfuse as needed. 5. Correct hypokalemia, she just received a Potassium rider -- monitor daily labs. (2) Chronic heart failure with preserved ejection fraction: Chronic Diastolic CHF, likely exacerbated by A-Fib with RVR, IVF's, transfusions, etc. -- Mild pulmonary edema on CXR, elevated Pro-BNP but she is not overtly symptomatic. -- Slow ventricular response rate with beta deejay and Digoxin. -- IV Lasix as needed if she develops significant symptoms and BP allows. (3) Hypotension: (4) Gross hematuria: (5) Acute blood loss anemia: (6) CML (chronic myelocytic leukemia): (7) Hypokalemia: Supervising Physician Co-Signing Physician Notes ADDENDUM (Dr. Rosenbaum): Patient seen and examined. Agree with plan as outlined above by Mr. Vamshi DIOR. Fortunately, despite her hypotension she does not appear hypoperfused (limbs are warm, mentation intact, urine output difficult to assess given hematuria). Trial of esmolol will allow for assessment of the degree to which tachycardia is exacerbating hypotension, if her blood pressure improves at slower heart rate phenylephrine can be weaned off. Continuing esmolol will allow minute to minute titration to manage balance between heart rate and blood pressure. Once she is felt to be clinically stable (hematuria controlled, etc.), could shift to low- dose oral beta-deejay for rate control. She is obviously not a candidate for anticoagulation with ongoing significant hematuria currently. In the future, if hematuria is well controlled and she could be anticoagulated for several weeks, could consider elective cardioversion. Alternatively, if she becomes hemodynamically unstable to the point she shows significant hypoperfusion, might need to consider more urgent electrical cardioversion. Could also consider transesophageal echocardiogram to exclude thrombus followed by semielective cardioversion during this hospitalization, but would prefer that she show some degree of clinical stability before subjecting her to additional procedure. She does not appear volume depleted currently, therefore vigorous fluid resuscitation not indicated. Will continue to follow along during this hospitalization. History of Present Illness Reason for Consultation: -- Atrial Fibrillation with RVR. Requesting Physician: Mikey Sutherland Attending Physician: Jaquan Rosenbaum MD History of Present Illness Mrs. Schilling is a 66 year old female with a history of CML, Type 2 DM, Stage 3 CKD, COPD, Non-Small Cell Lung Cancer s/p Left Lobectomy, Emphysema/COPD on Chronic O2, GERD, Sleep Apnea, Hyperlipidemia, Hypothyroidism, Chronic Hypotension (on Midodrine 10 mg t.i.d.), and Paroxysmal Atrial Fibrillation who was admitted on 11/10/21 after presenting with severe lower abdominal pain, gross hematuria, and an acute blood loss anemia with a Hgb of 6.7 g/dL. She underwent cystoscopy on 11/11/21 with evacuation of 1500 cc of clot. As per Dr. Harding report"Innumerable bladder lesions and ulceration found throughout bladder. Large amount of clot at region of anterior bladder/dome. On assessment patient found to have what appeared to be a bladder rupture. Cystogram was completed and found to be extraperitoneal with no extravasation of contrast into the peritoneum. Extensive fulguration and attempted control of bleeding ulcerated, inflamed, and irritated bladder lining". Patient has a Shahid catheter and still has gross hematuria. She has received 6 units of PRBC's so far and 1 unit of FFP. Throughout this hospitalization patient has been in rapid A-Fib with heart rates in the 120's to 140's. She does describe intermittent palpitations, intermittent lightheadedness, and chronic dyspnea -- but these are chronic symptoms for her and are not necessarily worse now than they are at baseline. Patient also has intermittent, atypical chest pain that does not radiate, is unrelated to exertion, and it is without associated symptoms. She specifically denies any associated nausea, vomiting, diaphoresis, or dyspnea. The chest discomfort seems to migrate around in her chest. IV Digoxin has been initiated but her HR remains high. Patient is chronically hypotensive, and remains so during this hospitalization. She is on a Phenylephrine drip. SBP's are running in the 80's and 90's. HISTORICAL BACKGROUND: Long-standing history of paroxysmal atrial fibrillation, dyslipidemia, hypertension, asthma, and chronic tobacco abuse. Echocardiogram in 2008 showed an EF of 60% with mild MR/TR. Nuclear stress also in 2008 showed no evidence of ischemia. Status post laparoscopic appendectomy August 2013 at [facility]. Perioperative episode of atrial fibrillation which then converted back to sinus rhythm. Status post left upper lobectomy January 14, 2017 for poorly differentiated squamous cell carcinoma. Postoperatively she developed atrial fibrillation. She was discharged home on Xarelto. She discontinued it after 3 weeks secondary to nose bleeds. She now has it to use on an as-needed basis if she develops any sustained atrial fibrillation. She completed 2 of 4 planned cycles of chemotherapy. Electrocardiogram January 19, 2017 revealed sinus rhythm. She was admitted on November 02, 2017 through November 10, 2017 to [facility] for a right periprosthetic femur fracture as well as fracture of her right fibula. This occurred after a syncopal or near syncopal event at home causing a fall. During that admission she was noted to have episodes of atrial fibrillation with rapid ventricular response. She was transiently treated with intravenous amiodarone. She was seen by a human resource consultant. It was felt that her fall causing her hip fracture was secondary to syncope or near syncope from intravascular volume depletion and hypotension. An echocardiogram performed during admission revealed normal LV systolic function. LV ejection fraction reported to be 55%-60%. No significant valve abnormalities. From November 10 through November 24, 2017 [facility]. She underwent repeat orthopedic surgery for femoral fracture 05/04/18. Performed at [facility]. Patient states that during that hospitalization she had atrial fibrillation. She was not kept on her usual medications. She was transferred to [facility] following the [place] hospitalization. She was diagnosed with CML in the Spring 2018 and treated with Sprycel. She was then admitted August 18, 2019-August 21, 2019 for diastolic heart failure felt to be secondary to fluid retention from chemotherapy for her CML. History of significant fluid retention on Sprycel given for her CML -- up to 30 lb weight gain with marked edema of legs and abdominal distension. Resolution of fluid retention with discontinuation of the Sprycel. Echocardiography August 19, 2019 with normal biventricular systolic function, borderline LVH, mild mitral and tricuspid regurgitation, estimated right ventricular systolic pressure 43-45 mm Hg. Admission in September 07, 2019-September 08, 2019 for symptoms felt to be related to bradycardia. Her flecainide and metoprolol doses were adjusted. Allergies Allergy/AdvReac Type Severity Reaction Status Date / Time diltiazem Allergy Severe SHORTNESS Verified 11/10/21 07:20 OF BREATH AND SWELLING OF HANDS AND FACE nut - unspecified Allergy Severe Wheezing Verified 11/10/21 07:20 peanut Allergy Severe Wheezing Verified 11/10/21 07:20 Yeast Allergy Severe Wheezing Verified 11/10/21 07:20 Penicillins Allergy Intermediate WELTS IN Verified 11/10/21 07:20 MOUTH AND SPREAD TO BODY adhesive Allergy Mild BLISTERS Verified 11/10/21 07:20 latex Allergy Mild RASH Verified 11/10/21 07:20 indomethacin Allergy Unknown per pulm Verified 11/10/21 07:20 note tree and shrub pollen Allergy Unknown ELM Verified 11/10/21 07:20 TREE-RASH BLISYERS HANDS ARMS FEET allopurinol Allergy Unknown Unverified 11/10/21 07:20 febuxostat [From Uloric] Allergy Unknown Verified 11/10/21 07:20 oxycodone Allergy Unknown Verified 11/10/21 07:20 codeine AdvReac Mild N&V&GI PAIN Verified 11/10/21 07:20 paroxetine AdvReac Mild GI SYMPTOMS Verified 11/10/21 07:20 varenicline AdvReac Mild GI Verified 11/10/21 07:20 SYMPTOMS,HALLUCINATIONS linaclotide [From Linzess] AdvReac Unknown CAUSED Verified 11/10/21 07:20 ASTHMA ATTACK Home Medications Medication Instructions Recorded Confirmed Type budesonide-formoterol HFA 160 2 puff INHALATION BID #10.2 gm 11/15/20 11/10/21 Rx mcg-4.5 mcg/actuation aerosol inhaler (Symbicort) montelukast 10 mg tablet 10 mg PO HS #30 tab 04/03/21 11/10/21 Rx acetaminophen 325 mg tablet 650 mg PO Q4 PRN 05/28/21 11/10/21 History cholecalciferol (vitamin D3) 25 25 mcg PO BID 05/28/21 11/10/21 History mcg (1,000 unit) tablet sodium chloride 0.65 % nasal spray 1 spray INTRANASAL TID PRN 05/28/21 11/10/21 History aerosol (Saline Nasal) umeclidinium 62.5 mcg/actuation 1 inh INHALATION DAILY 08/13/21 11/10/21 History blister powder for inhalation (Incruse Ellipta) aspirin 81 mg tablet,delayed 81 mg PO QAM 08/22/21 11/10/21 History release (Adult Aspirin Regimen) atorvastatin 20 mg tablet 20 mg PO HS #90 tab 08/22/21 11/10/21 Rx levothyroxine 50 mcg tablet 50 mcg PO DAILY #90 tab 08/22/21 11/10/21 Rx midodrine 10 mg tablet 10 mg PO TID #90 tab 08/22/21 11/10/21 Rx promethazine 25 mg tablet 25 mg PO TID PRN #90 tab 08/22/21 11/10/21 Rx tramadol 50 mg tablet 100 mg PO Q8 PRN #180 tab 08/22/21 11/10/21 Rx hydrocortisone acetate 30 mg 30 mg MA BID #20 ea 09/20/21 11/10/21 Rx rectal suppository pantoprazole 40 mg tablet,delayed 40 mg PO BID #60 tab 09/20/21 11/10/21 Rx release docusate sodium 100 mg capsule 100 mg PO BID 09/24/21 11/10/21 History duloxetine 20 mg capsule,delayed 40 mg PO QAM #60 cap 09/24/21 11/10/21 Rx release lidocaine 5 % topical patch 1 patch TOP DAILY PRN #15 ea 09/24/21 11/10/21 Rx torsemide 20 mg tablet 40 mg PO QAM 09/24/21 11/10/21 History metoprolol tartrate 25 mg tablet 12.5 mg PO BID 11/10/21 11/10/21 History Patient History Medical History Anemia Anxiety Asthma Atrial fibrillation Chronic kidney disease, stage 3 (moderate) F/U DR VILLAGOMEZ Chronic obstructive pulmonary disease with emphysema- on inhalers CML (chronic myelocytic leukemia) F/U DR [facility] Depression Diabetes mellitus, type 2 DIET MANAGED GERD (gastroesophageal reflux disease) Hyperlipidemia Hypertension Hypothyroidism Iron deficiency anemia Kidney stones HX Lung cancer, lower lobe 2017--left--sx, chemo On home oxygen therapy 2L n/c continuous Sleep apnea NO LONGER USING CPAP-USES ONLY OXYGEN CONTINUOUSLY SOBOE (shortness of breath on exertion) Stress incontinence in female Temporomandibular joint disorder PAIN BILAT-HAS NEVER LOCKED Surgical History History of appendectomy History of bronchoscopy 2017 History of cardiac cath 11/2017 @ [facility]--no stents History of cholecystectomy History of colonoscopy History of dilatation and curettage History of esophagogastroduodenoscopy (EGD) History of lobectomy of lung lower left lobe 2017 @ [facility] History of open reduction and internal fixation (ORIF) procedure R upper thigh x2--pins/rods in place History of tooth extraction all teeth History of total left knee replacement (TKR) History of total right knee replacement (TKR) Family History Sister Family history of reaction to anesthesia "had an allergic reaction", not sure what happened Arthritis Family history of diabetes mellitus Heart disease Hypertension Mother Family history of diabetes mellitus Myocardial infarction Heart disease Hypertension age 63 due to [place] Grandmother Family history of diabetes mellitus maternal Family/Other Family history of diabetes mellitus maternal uncle/maternal aunts Colorectal cancer Family/Other Family hx of colon cancer paternal cousin Father age 91 Gout Denies family history of Crohn's disease Ulcerative colitis Social History Smoking Status: Unknown if ever smoked Tobacco Type: Cigarettes Age Started Using Tobacco: 8; Age Quit Using Tobacco: 62; Cigarettes Per Day: 2pks; Second Hand Exposure: No; Hx Alcohol Use: No Hx Substance Use: No Preferred Language: Senegalese Communication Ability: Effective Visual Impairment: No Limitations Hearing Ability: Normal Case Operator Required: No Beliefs That Will Affect Care: None marital status: / marital status details: twice; from 1st ; 2nd Current Living Situation: Family Current Living Situation Comment: lives in [place] current occupational status: retired current occupation: former nurse's aid How many Children do You have: 1 Other Information That Helps Us Care for You: No Feels Safe at Home: Yes Safety Concerns: Feels Safe At This Time Childhood Exposure to Second-Hand Smoke: No during the past year weight has: remained stable Dental Care, Regularly: No Physical Activity Frequency: Does not Exercise Seatbelt Use: always Sunscreen Use: No Assistive Devices: Denture - Upper, Denture - Lower and Glasses Review of Systems 2 Review of Systems: Ten point ROS was completed and negative with the exception of what is mentioned in the HPI. Physical Exam Physical Exam: GENERAL: Chronically ill appearing, complexion is pale. HEENT: Head is atraumatic, normocephalic. Sclerae anicteric. EOM's intact. Facies symmetric. No perioral cyanosis. NECK: JVP appears to be elevated. Carotid upstrokes are + 2 bilaterally without obvious bruits. CHEST/LUNGS: Diminished breath sounds throughout with scattered crackles. CVS: S1 and S2 are irregularly irregular and tachycardic without obvious murmurs, gallops, or rubs. PMI is nondisplaced. No lifts, heaves, or thrills. No abdominal aortic or renal bruits. ABDOMINAL EXAM: Bowel sounds are present. EXTREMITIES: No clubbing or cyanosis. No edema. Intact posterior tibial and radial pulses bilaterally. Limbs are well perfused, warm. NEUROLOGIC EXAM: Patient is awake, alert, and oriented. Pleasant and cooperative. Answers questions appropriately. Speech is clear. Mentating clearly. Normal movement in all 4 extremities. Gait pattern was not assessed. Bronze Plater: -- A-fib with RVR, rates in the 120' and 130's. EKG 11/11/21: -- A-fib with a V-rate of 141 bpm, low voltage QRS, and diffuse non-specific T wave abnormality. -- Abnormal EKG. -- When compared to 11/10/21; HR has increased by 20 bpm. Results & Data ([facility]) Vital Signs (Past 12 Hours) Vital Signs Temp Pulse Resp BP Pulse Ox 11/12/21 06:00 127 H 24 85/65 L 98 11/12/21 05:10 82/69 L 11/12/21 05:00 133 H 26 H 89/57 L 98 11/12/21 04:10 142 H 32 H 90/54 L 97 11/12/21 04:00 36.6 C 146 H 36 H 87/59 L 97 11/12/21 03:50 150 H 22 92/58 L 92 11/12/21 03:48 138 H 11/12/21 03:40 133 H 34 H 89/53 L 94 11/12/21 03:30 127 H 28 H 91/52 L 98 11/12/21 03:00 143 H 21 90/51 L 94 11/12/21 02:50 141 H 24 94/63 L 96 11/12/21 02:40 142 H 27 H 104/51 L 100 11/12/21 02:30 148 H 35 H 88/62 L 98 11/12/21 02:20 143 H 18 94/63 L 98 11/12/21 02:10 143 H 31 H 94/60 L 99 11/12/21 02:00 136 H 28 H 94/57 L 97 11/12/21 01:40 147 H 26 H 93/67 L 100 11/12/21 01:30 136 H 37 H 89/60 L 100 11/12/21 01:10 133 H 20 91/66 L 76 L 11/12/21 00:40 143 H 27 H 94/68 L 97 11/12/21 00:30 140 H 21 102/60 96 11/12/21 00:20 135 H 17 112/70 96 11/12/21 00:10 134 H 18 94/59 L 95 11/12/21 00:00 36.6 C 100/67 11/11/21 23:40 95/73 L 11/11/21 23:30 102/68 11/11/21 23:15 147 H 22 99 11/11/21 23:10 137 H 17 95/66 L 96 11/11/21 23:08 148 H 11/11/21 23:00 130 H 31 H 96/68 L 99 11/11/21 22:50 152 H 19 97/68 L 97 11/11/21 22:45 155 H 27 H 96 11/11/21 22:40 141 H 21 99/63 L 96 11/11/21 22:30 142 H 22 111/61 96 11/11/21 22:20 133 H 19 93/62 L 95 11/11/21 22:17 141 H 11/11/21 22:10 17 82/68 L 96 11/11/21 22:01 36.4 C L 143 H 18 97/84 L 93 11/11/21 22:00 21 93 11/11/21 21:58 36.4 C L 145 H 20 107/79 100 11/11/21 21:50 180 H 23 123/74 98 11/11/21 21:45 150 H 25 H 97/62 L 94 11/11/21 21:30 150 H 21 107/74 91 11/11/21 21:20 147 H 23 97/69 L 96 11/11/21 21:11 152 H 27 H 78/62 L 93 Laboratory Results Laboratory Results - last 24 hr 11/10/21 11/11/21 11/11/21 07:00 07:29 14:53 WBC RBC Hgb 7.8 L POC Hgb Hct 23.8 L POC Hct MCV MCH MCHC RDW Std Deviation RDW Coeff of Bruce Plt Count MPV Immature Gran % (Auto) Neut % (Auto) Lymph % (Auto) Pitt % (Auto) Eos % (Auto) Baso % (Auto) Neut # (Auto) Lymph # (Auto) Pitt # (Auto) Eos # (Auto) Baso # (Auto) Immature Gran # (Auto) Absolute Nucleated RBC Nucleated RBC % (auto) Neutrophils % (Manual) Lymphocytes % (Manual) Monocytes % (Manual) Eosinophils % (Manual) Basophils % (Manual) Metamyelocytes % (Man) Myelocytes % (Man) Blast Cells % (Manual) Neutrophils # (Manual) Total Absolute Neuts Lymphocytes # (Manual) Total Abs Lymphocytes Monocytes # (Manual) Eosinophils # (Manual) Basophils # (Manual) Metamyelocytes # (Man) Myelocytes # (Manual) Blast Cells # (Man) RBC Morphology Polychromasia Echinocytes PT INR Fibrinogen Sample Site POC pH POC pCO2 POC pO2 POC HCO3 POC Base Excess POC ABG O2 Sat Lobo Test O2 Delivery Device POC FiO2 POC Sodium Sodium POC Potassium Potassium POC Chloride Chloride Carbon Dioxide POC Total CO2 Anion Gap POC Anion Gap POC BUN BUN Creatinine POC Creatinine Est Cr Clr Drug Dosing Est GFR ( Amer) Est GFR (Non-Af Amer) BUN/Creatinine Ratio Glucose POC Glucose POC Glucose (other) Lactate Calcium POC Ioniz Calcium Lizeth Phosphorus Magnesium Total Bilirubin Direct Bilirubin AST ALT Alkaline Phosphatase Troponin I Total Protein Albumin Procalcitonin Random Cortisol 23.16 Digoxin Blood Type A Negative Antibody Screen NEGATIVE Crossmatch See Detail 11/11/21 11/11/21 11/11/21 18:00 18:38 20:17 WBC 75.73 H* D RBC 3.03 L Hgb 8.8 L POC Hgb 7.8 L Hct 27.6 L POC Hct 23 L MCV 91.1 MCH 29.0 MCHC 31.9 L RDW Std Deviation 55.0 H RDW Coeff of Bruce 16.8 H Plt Count 702 H MPV 11.2 H Immature Gran % (Auto) Neut % (Auto) Lymph % (Auto) Pitt % (Auto) Eos % (Auto) Baso % (Auto) Neut # (Auto) Lymph # (Auto) Pitt # (Auto) Eos # (Auto) Baso # (Auto) Immature Gran # (Auto) Absolute Nucleated RBC 0.62 H Nucleated RBC % (auto) 0.8 Neutrophils % (Manual) 77.1 Lymphocytes % (Manual) 3.5 Monocytes % (Manual) 2.6 Eosinophils % (Manual) 5.3 Basophils % (Manual) 5.3 Metamyelocytes % (Man) 3.5 Myelocytes % (Man) 1.8 Blast Cells % (Manual) 0.9 Neutrophils # (Manual) 58.39 H Total Absolute Neuts 58.39 H Lymphocytes # (Manual) 2.65 Total Abs Lymphocytes 2.65 Monocytes # (Manual) 1.97 H Eosinophils # (Manual) 4.01 H Basophils # (Manual) 4.01 H Metamyelocytes # (Man) 2.65 H Myelocytes # (Manual) 1.36 H Blast Cells # (Man) 0.68 H RBC Morphology Polychromasia 1+ Echinocytes 1+ PT INR Fibrinogen Sample Site POC pH POC pCO2 POC pO2 POC HCO3 POC Base Excess POC ABG O2 Sat Lobo Test O2 Delivery Device POC FiO2 POC Sodium 138 Sodium POC Potassium 4.3 Potassium POC Chloride 104 Chloride Carbon Dioxide POC Total CO2 20 L Anion Gap POC Anion Gap 19.0 POC BUN 64 H BUN Creatinine POC Creatinine 2.4 H Est Cr Clr Drug Dosing Est GFR ( Amer) Est GFR (Non-Af Amer) BUN/Creatinine Ratio Glucose POC Glucose 130 H POC Glucose (other) 101 H Lactate Calcium POC Ioniz Calcium Lizeth 1.11 L Phosphorus Magnesium Total Bilirubin Direct Bilirubin AST ALT Alkaline Phosphatase Troponin I Total Protein Albumin Procalcitonin Random Cortisol Digoxin Blood Type Antibody Screen Crossmatch 11/11/21 11/11/21 11/11/21 20:17 20:17 20:17 WBC RBC Hgb POC Hgb Hct POC Hct MCV MCH MCHC RDW Std Deviation RDW Coeff of Bruce Plt Count MPV Immature Gran % (Auto) Neut % (Auto) Lymph % (Auto) Pitt % (Auto) Eos % (Auto) Baso % (Auto) Neut # (Auto) Lymph # (Auto) Pitt # (Auto) Eos # (Auto) Baso # (Auto) Immature Gran # (Auto) Absolute Nucleated RBC Nucleated RBC % (auto) Neutrophils % (Manual) Lymphocytes % (Manual) Monocytes % (Manual) Eosinophils % (Manual) Basophils % (Manual) Metamyelocytes % (Man) Myelocytes % (Man) Blast Cells % (Manual) Neutrophils # (Manual) Total Absolute Neuts Lymphocytes # (Manual) Total Abs Lymphocytes Monocytes # (Manual) Eosinophils # (Manual) Basophils # (Manual) Metamyelocytes # (Man) Myelocytes # (Manual) Blast Cells # (Man) RBC Morphology Polychromasia Echinocytes PT INR Fibrinogen Sample Site POC pH POC pCO2 POC pO2 POC HCO3 POC Base Excess POC ABG O2 Sat Lobo Test O2 Delivery Device POC FiO2 POC Sodium Sodium 142 POC Potassium Potassium 4.2 POC Chloride Chloride 111 H Carbon Dioxide 19 L POC Total CO2 Anion Gap 12.0 H POC Anion Gap POC BUN BUN 51 H Creatinine 2.34 H POC Creatinine Est Cr Clr Drug Dosing 26.1 Est GFR ( Amer) 24.0 Est GFR (Non-Af Amer) 20.7 BUN/Creatinine Ratio 21.9 H Glucose 169 H POC Glucose POC Glucose (other) Lactate 3.3 H* Calcium 7.0 L POC Ioniz Calcium Lizeth Phosphorus 5.1 H Magnesium 1.5 L Total Bilirubin Direct Bilirubin AST ALT Alkaline Phosphatase Troponin I < 0.015 Total Protein Albumin Procalcitonin 0.75 H Random Cortisol Digoxin Blood Type Antibody Screen Crossmatch 11/11/21 11/12/21 11/12/21 20:52 04:53 05:08 WBC 99.98 H* D RBC 2.75 L Hgb 8.1 L POC Hgb Hct 24.6 L POC Hct MCV 89.5 MCH 29.5 MCHC 32.9 RDW Std Deviation 52.6 H RDW Coeff of Bruce 16.4 H Plt Count 599 H MPV 11.7 H Immature Gran % (Auto) 6.3 Neut % (Auto) 88.8 Lymph % (Auto) 3.5 Pitt % (Auto) 0.8 Eos % (Auto) 0.0 Baso % (Auto) 0.6 Neut # (Auto) 88.76 H Lymph # (Auto) 3.50 H Pitt # (Auto) 0.79 H Eos # (Auto) 0.04 Baso # (Auto) 0.56 H Immature Gran # (Auto) 6.33 H Absolute Nucleated RBC 0.79 H Nucleated RBC % (auto) 0.8 Neutrophils % (Manual) Lymphocytes % (Manual) Monocytes % (Manual) Eosinophils % (Manual) Basophils % (Manual) Metamyelocytes % (Man) Myelocytes % (Man) Blast Cells % (Manual) Neutrophils # (Manual) Total Absolute Neuts Lymphocytes # (Manual) Total Abs Lymphocytes Monocytes # (Manual) Eosinophils # (Manual) Basophils # (Manual) Metamyelocytes # (Man) Myelocytes # (Manual) Blast Cells # (Man) RBC Morphology Unremarkable Polychromasia Echinocytes PT INR Fibrinogen Sample Site R Radial L Radial POC pH 7.18 L* 7.35 POC pCO2 41 37 POC pO2 74 L 41 L POC HCO3 15 L 20 POC Base Excess -13.0 L -6.0 POC ABG O2 Sat 90.0 73.0 L Lobo Test Pass NA O2 Delivery Device Cube/Tent Other POC FiO2 4 POC Sodium Sodium POC Potassium Potassium POC Chloride Chloride Carbon Dioxide POC Total CO2 17 L 21 L Anion Gap POC Anion Gap POC BUN BUN Creatinine POC Creatinine Est Cr Clr Drug Dosing Est GFR ( Amer) Est GFR (Non-Af Amer) BUN/Creatinine Ratio Glucose POC Glucose POC Glucose (other) Lactate Calcium POC Ioniz Calcium Lizeth Phosphorus Magnesium Total Bilirubin Direct Bilirubin AST ALT Alkaline Phosphatase Troponin I Total Protein Albumin Procalcitonin Random Cortisol Digoxin Blood Type Antibody Screen Crossmatch 11/12/21 11/12/21 11/12/21 05:08 05:08 05:08 WBC RBC Hgb POC Hgb Hct POC Hct MCV MCH MCHC RDW Std Deviation RDW Coeff of Bruce Plt Count MPV Immature Gran % (Auto) Neut % (Auto) Lymph % (Auto) Pitt % (Auto) Eos % (Auto) Baso % (Auto) Neut # (Auto) Lymph # (Auto) Pitt # (Auto) Eos # (Auto) Baso # (Auto) Immature Gran # (Auto) Absolute Nucleated RBC Nucleated RBC % (auto) Neutrophils % (Manual) Lymphocytes % (Manual) Monocytes % (Manual) Eosinophils % (Manual) Basophils % (Manual) Metamyelocytes % (Man) Myelocytes % (Man) Blast Cells % (Manual) Neutrophils # (Manual) Total Absolute Neuts Lymphocytes # (Manual) Total Abs Lymphocytes Monocytes # (Manual) Eosinophils # (Manual) Basophils # (Manual) Metamyelocytes # (Man) Myelocytes # (Manual) Blast Cells # (Man) RBC Morphology Polychromasia Echinocytes PT 13.2 H INR 1.3 H Fibrinogen Sample Site POC pH POC pCO2 POC pO2 POC HCO3 POC Base Excess POC ABG O2 Sat Lobo Test O2 Delivery Device POC FiO2 POC Sodium Sodium 138 POC Potassium Potassium 3.2 L D POC Chloride Chloride 101 Carbon Dioxide 30 POC Total CO2 Anion Gap 7.0 POC Anion Gap POC BUN BUN 46 H Creatinine 2.03 H D POC Creatinine Est Cr Clr Drug Dosing 30.1 Est GFR ( Amer) 28.5 Est GFR (Non-Af Amer) 24.6 BUN/Creatinine Ratio 22.6 H Glucose 114 H POC Glucose POC Glucose (other) Lactate Calcium 6.4 L POC Ioniz Calcium Lizeth Phosphorus 4.4 Magnesium 1.5 L Total Bilirubin 0.6 Direct Bilirubin 0.2 AST 22 ALT 11 L Alkaline Phosphatase 71 Troponin I Total Protein 3.9 L Albumin 1.8 L Procalcitonin Random Cortisol Digoxin 1.9 Blood Type Antibody Screen Crossmatch 11/12/21 11/12/21 05:08 09:04 WBC RBC Hgb POC Hgb Hct POC Hct MCV MCH MCHC RDW Std Deviation RDW Coeff of Bruce Plt Count MPV Immature Gran % (Auto) Neut % (Auto) Lymph % (Auto) Pitt % (Auto) Eos % (Auto) Baso % (Auto) Neut # (Auto) Lymph # (Auto) Pitt # (Auto) Eos # (Auto) Baso # (Auto) Immature Gran # (Auto) Absolute Nucleated RBC Nucleated RBC % (auto) Neutrophils % (Manual) Lymphocytes % (Manual) Monocytes % (Manual) Eosinophils % (Manual) Basophils % (Manual) Metamyelocytes % (Man) Myelocytes % (Man) Blast Cells % (Manual) Neutrophils # (Manual) Total Absolute Neuts Lymphocytes # (Manual) Total Abs Lymphocytes Monocytes # (Manual) Eosinophils # (Manual) Basophils # (Manual) Metamyelocytes # (Man) Myelocytes # (Manual) Blast Cells # (Man) RBC Morphology Polychromasia Echinocytes PT INR Fibrinogen 296 Sample Site POC pH POC pCO2 POC pO2 POC HCO3 POC Base Excess POC ABG O2 Sat Lobo Test O2 Delivery Device POC FiO2 POC Sodium Sodium POC Potassium Potassium POC Chloride Chloride Carbon Dioxide POC Total CO2 Anion Gap POC Anion Gap POC BUN BUN Creatinine POC Creatinine Est Cr Clr Drug Dosing Est GFR ( Amer) Est GFR (Non-Af Amer) BUN/Creatinine Ratio Glucose POC Glucose POC Glucose (other) Lactate 1.9 Calcium POC Ioniz Calcium Lizeth Phosphorus Magnesium Total Bilirubin Direct Bilirubin AST ALT Alkaline Phosphatase Troponin I Total Protein Albumin Procalcitonin Random Cortisol Digoxin Blood Type Antibody Screen Crossmatch Diagnostic Findings CXR 11/11/21: Cardiac silhouette is enlarged. There is no pneumothorax. Small pleural effusions. Pulmonary vascular congestion with interstitial coarsening. Degenerative changes of the shoulders and spine. Surgical clips project over the retrocardiac distribution. Degenerative changes of the shoulders and spine. IMPRESSION: 1. Cardiomegaly with pulmonary edema. 2. Unchanged layering pleural effusions with bibasilar opacities. CT SCAN of Abd/Pelvis 11/10/21: Mild emphysema noted at the lung bases. Suture material within the left lower lobe consistent with prior wedge resection. Trace bilateral pleural effusions, unchanged. No pneumoperitoneum. No pneumatosis. Partially visualized hardware within the proximal right femur. Chronic changes again noted at the bilateral sacroiliac joints. There is mild elevation of the left hemidiaphragm, unchanged. Moderate to severe body wall edema has progressed. There is associated presacral/perirectal edema. Cholecystectomy. Stable linear hypodensity within the right hepatic lobe inferiorly. This may represent scarring. The unenhanced spleen and adrenal glands are unremarkable. Stable 2 cm hypodense lesion within the pancreatic body. This favors a cystic neoplasm. Multiple bilateral renal hypodense and hyperdense lesions are also unchanged. These are incompletely characterized on this noncontrast study but statistically represent simple and hyperdense cysts. There is moderate bilateral hydroureteronephrosis. No renal or ureteral stones identified. No retroperitoneal lymphadenopathy. Outside plaque within the normal caliber abdominal aorta. A 9 mm right common iliac lymph node on image 266 remains stable. The uterus and bilateral ovaries are unremarkable. Markedly distended bladder primarily filled with hyperdense material suggesting blood clot. There is a Shahid catheter within the bladder. Suboptimal evaluation for bowel pathology due to the lack of intravenous and oral contrast. However, there is no definite bowel wall thickening or obstruction. There is a left lower quadrant colostomy with evidence for prior left colectomy.. IMPRESSION: 1. Markedly distended bladder which is primarily filled with hyperdense material suggesting blood clot. Recommend follow-up nonemergent cystoscopy to exclude the possibly of underlying bladder mass which could be obscured by the large blood clot. There is a Shahid catheter which appears in good position within the bladder. 2. Moderate bilateral hydroureteronephrosis which is likely secondary to the distended bladder. No renal or ureteral stones identified. 3. Moderate to severe body wall edema which has progressed. 4. Additional findings as described above. Medications Administered Medications budesonide-formoterol HFA 160 mcg-4.5 mcg/actuation aerosol inhaler (Symbicort) 2 puff INHALATION BID #10.2 gm 11/15/20 [Rx Confirmed 11/10/21] montelukast 10 mg tablet 10 mg PO HS #30 tab 04/03/21 [Rx Confirmed 11/10/21] acetaminophen 325 mg tablet 650 mg PO Q4 PRN 05/28/21 [History Confirmed 11/10/21] cholecalciferol (vitamin D3) 25 mcg (1,000 unit) tablet 25 mcg PO BID 05/28/21 [History Confirmed 11/10/21] sodium chloride 0.65 % nasal spray aerosol (Saline Nasal) 1 spray INTRANASAL TID PRN 05/28/21 [History Confirmed 11/10/21] umeclidinium 62.5 mcg/actuation blister powder for inhalation (Incruse Ellipta) 1 inh INHALATION DAILY 08/13/21 [History Confirmed 11/10/21] aspirin 81 mg tablet,delayed release (Adult Aspirin Regimen) 81 mg PO QAM 08/22/21 [History Confirmed 11/10/21] atorvastatin 20 mg tablet 20 mg PO HS #90 tab 08/22/21 [Rx Confirmed 11/10/21] levothyroxine 50 mcg tablet 50 mcg PO DAILY #90 tab 08/22/21 [Rx Confirmed 11/10/21] midodrine 10 mg tablet 10 mg PO TID #90 tab 08/22/21 [Rx Confirmed 11/10/21] promethazine 25 mg tablet 25 mg PO TID PRN #90 tab 08/22/21 [Rx Confirmed 11/10/21] tramadol 50 mg tablet 100 mg PO Q8 PRN #180 tab 08/22/21 [Rx Confirmed 11/10/21] hydrocortisone acetate 30 mg rectal suppository 30 mg MA BID #20 ea 09/20/21 [Rx Confirmed 11/10/21] pantoprazole 40 mg tablet,delayed release 40 mg PO BID #60 tab 09/20/21 [Rx Confirmed 11/10/21] docusate sodium 100 mg capsule 100 mg PO BID 09/24/21 [History Confirmed 11/10/21] duloxetine 20 mg capsule,delayed release 40 mg PO QAM #60 cap 09/24/21 [Rx Confirmed 11/10/21] lidocaine 5 % topical patch 1 patch TOP DAILY PRN #15 ea 09/24/21 [Rx Confirmed 11/10/21] torsemide 20 mg tablet 40 mg PO QAM 09/24/21 [History Confirmed 11/10/21] metoprolol tartrate 25 mg tablet 12.5 mg PO BID 11/10/21 [History Confirmed 11/10/21] Home Medications Acetaminophen (Acetaminophen 500 Mg Tab) 1,000 mg PO Q4H PRN PRN Reason: Pain or Fever Stop: 12/10/21 10:24 Atorvastatin Calcium (Atorvastatin 20 Mg Tab) 20 mg PO HS [facility] Stop: 12/10/21 20:59 Last Admin: 11/11/21 20:33 Dose: Not Given Documented by: Docusate Sodium (Docusate Sodium 100 Mg Cap) 100 mg PO BID [facility] Stop: 12/10/21 10:59 Last Admin: 11/11/21 20:32 Dose: Not Given Documented by: Duloxetine HCl (Duloxetine Hcl 20 Mg Cap) 40 mg PO QAM [facility] Stop: 12/10/21 10:59 Last Admin: 11/11/21 08:45 Dose: 40 mg Documented by: Fludrocortisone Acetate (Fludrocortisone Acetate 0.1 Mg Tab) 0.1 mg PO QAM [facility] Stop: 12/12/21 09:29 Fluticasone/Vilanterol (Fluticasone/Vilanterol 100/25mcg 14 Puffs/Inhaler) 1 puffs INH DAILY [facility] Stop: 12/10/21 11:29 Last Admin: 11/11/21 08:46 Dose: 1 puffs Documented by: Hydromorphone HCl (Hydromorphone Inj 0.5 Mg/0.5 Ml Syr) 0.25 mg IV Q4H PRN PRN Reason: Pain Stop: 11/24/21 10:24 Last Admin: 11/11/21 20:25 Dose: 0.25 mg Documented by: Hydroxyurea (Hydroxyurea 500 Mg Cap) 500 mg PO QAM [facility] Stop: 12/12/21 08:59 Ceftriaxone Sodium 2,000 mg/ (Dextrose) 70 mls @ 100 mls/hr IV DAILY [facility]; Protocol Stop: 11/13/21 08:59 Last Infusion: 11/11/21 11:07 Dose: Infused Documented by: Digoxin 125 mcg/ Syringe 10 mls @ 2 mls/min IV Q6H [facility] Stop: 11/12/21 16:04 Last Admin: 11/12/21 03:48 Dose: 2 mls/min Documented by: Parenteral Electrolytes (Normosol-R) 1,000 mls @ 80 mls/hr IV .[id number] [facility] Stop: 12/12/21 05:44 Last Admin: 11/12/21 06:20 Dose: 80 mls/hr Documented by: Phenylephrine HCl 20 mg/ (Sodium Chloride) 502 mls @ 88.326 mls/hr IV .Q5H42M [facility]; Protocol Stop: 12/12/21 07:29 Last Admin: 11/12/21 07:42 Dose: 0.4 mcg/kg/min, 58.9 mls/hr Documented by: Calcium Gluconate 3,000 mg/ (Sodium Chloride) 130 mls @ 65 mls/hr IV NOW ONE Stop: 11/12/21 11:14 Last Admin: 11/12/21 09:30 Dose: 65 mls/hr Documented by: Esmolol HCl (Brevibloc) 2,500 mg in 250 mls @ 32.82 mls/hr IV .Q7H38M [facility]; Protocol Stop: 12/12/21 09:29 Last Admin: 11/12/21 09:31 Dose: 50 mcg/kg/min, 32.8 mls/hr Documented by: Hydrocortisone Sodium (Succinate 50 mg/ Syringe) 1 mls @ 4 mls/min IV Q6 [facility] Stop: 12/12/21 11:59 Levothyroxine Sodium (Levothyroxine Sodium 50 Mcg Tablet) 50 mcg PO DAILYBB [facility] Stop: 12/10/21 10:59 Last Admin: 11/12/21 05:44 Dose: Not Given Documented by: Lidocaine (Lidocaine 5% 1 Patch) 1 patch TD DAILY PRN PRN Reason: pain Stop: 12/10/21 10:59 Midodrine (Midodrine Hcl 10 Mg Tab) 10 mg PO TID@0800,1200,1700 [facility] Stop: 12/10/21 11:59 Last Admin: 11/12/21 09:53 Dose: Not Given Documented by: Miscellaneous (Remove Lidoderm Patch) 1 ea N/A DAILY@2100 JOSÉ LUIS Stop: 12/10/21 20:59 Last Admin: 11/11/21 20:32 Dose: Not Given Documented by: Sandie (Icu Protocol For Hyperglycemia) 1 ea N/A PRN PRN; Protocol PRN Reason: Hyperglycemia Protocol Stop: 11/13/21 19:41 Montelukast Sodium (Montelukast Sodium 10 Mg Tablet) 10 mg PO HS [facility] Stop: 12/10/21 20:59 Last Admin: 11/11/21 20:32 Dose: Not Given Documented by: Ondansetron HCl (Ondansetron Inj 2 Mg/Ml 2 Ml Vial) 4 mg IV Q6H PRN PRN Reason: Nausea Stop: 12/10/21 10:24 Pantoprazole Sodium (Pantoprazole 40 Mg Tab) 40 mg PO BID [facility] Stop: 12/10/21 10:59 Last Admin: 11/11/21 20:35 Dose: Not Given Documented by: Sodium Chloride (Sodium Chloride 0.65% Na Soln 45 Ml (Brenas)) 1 sprays NA TID PRN PRN Reason: Dry Nasal Passages Stop: 12/10/21 10:24 Umeclidinium Mcdaniels (Umeclidinium Mcdaniels 62.5mcg/Blister 7 Puffs/Inhaler) 1 puffs INH DAILY JOSÉ LUIS Stop: 12/10/21 10:59 Last Admin: 11/11/21 08:46 Dose: 1 puffs Documented by: Vitamin D (Cholecalciferol 1,000 Units 25 Mcg Tab) 1,000 units PO BID JOSÉ LUIS Stop: 12/10/21 10:59 Last Admin: 11/11/21 20:33 Dose: Not Given Documented by: PG Care Time/CCT Total # of Minutes Spent Total Time Spent with Patient: Total time spent is greater than 50% in coordination of care (as documented) at patient's floor/unit and/or counseling patient: Coding Level of Care Code 13240 Inpt Consult Level 4 Diagnoses Atrial fibrillation with rapid ventricular response I48.91 Chronic heart failure with preserved ejection fraction I50.32 Hypotension I95.9 Gross hematuria R31.0 Acute blood loss anemia D62 CML (chronic myelocytic leukemia) C92.10 Hypokalemia E87.6
[2021-11-12] MEDS ORDERED: ESMOLOL / NSS 2,500 MG/250 ML BAG IV SCH (09:30)
[2021-11-12 09:38] LABS: Fibrinogen 296 mg/dl (184-400)
--- NOTE | 2021-11-12 09:41 | Urology Progress Note ---
Date of Service November 12, 2021 Assessment & Plan (1) Bladder hemorrhage: Plan: Hemorrhagic cystitis 2/2 to UTI? yesterday had cysto, clot evac, fulguration of a large portion of the bladder unfortunately, she also suffered an extra-peritoneal bladder rupture this rupture limits ability to run CBI or instill intravesical agents into the bladder Fortunately, her Cr has improved slightly and she is maintaining her hgb (with transfusions) I manually irrigated her bladder today - she tolerated this well and I was able to clear her bladder within 2-3 syringes I hope that this implies improvement in her bladder overall Unfortunately, her situation is quite tenuous and it remains uncertain that her bladder is improving quickly enough to allow her to overcome her other issues or rebuild her hgb appropriately She is considering all options, but for now will continue with supportive care and transfusions We will continue to follow closely OK to manually irrigate the catheter PRN Admission and Anticipated Discharge Date Admission Date: November 10, 2021 Subjective Unfortunate, extremely co-morbid female who was taken to the OR yesterday for a cysto and clot evacuation. Appears to have suffered an extra-peritoneal bladder injury during the procedure. Maintained with a 26F kelley catheter overnight, no CBI - Hgb stable with transfusions- not gaining ground - some lower abdominal discomfort tachycardia/afib subjectively, doing ok mentally seems to be quite coherent - but reports that she is "wearing down" catheter is draining very dark urine Physical Exam Physical Exam: NC O2 tachycardia/afib abdomen soft, mildly tender no guarding catheter in place - merlot colored urine (thick) Results & Data ([facility]) Vital Signs (Past 12 Hours) Vital Signs Temp Pulse Resp BP Pulse Ox 11/12/21 09:20 140 H 26 H 86 L 11/12/21 09:10 128 H 20 93 11/12/21 09:00 134 H 24 79/56 L 88 L 11/12/21 08:50 136 H 18 95 11/12/21 08:40 141 H 23 96 11/12/21 08:30 123 H 18 93 11/12/21 08:20 132 H 21 97 11/12/21 08:10 133 H 18 95 11/12/21 08:00 121 H 24 85/50 L 91 11/12/21 07:50 117 H 18 94 11/12/21 07:40 122 H 29 H 89/49 L 11/12/21 07:30 122 H 35 H 11/12/21 07:20 143 H 34 H 97 11/12/21 07:10 152 H 37 H 77/48 L 95 11/12/21 07:00 128 H 29 H 84/60 L 98 11/12/21 06:50 133 H 35 H 98 11/12/21 06:40 132 H 32 H 83/58 L 98 11/12/21 06:00 127 H 24 85/65 L 98 11/12/21 05:10 82/69 L 11/12/21 05:00 133 H 26 H 89/57 L 98 11/12/21 04:10 142 H 32 H 90/54 L 97 11/12/21 04:00 36.6 C 146 H 36 H 87/59 L 97 11/12/21 03:50 150 H 22 92/58 L 92 11/12/21 03:48 138 H 11/12/21 03:40 133 H 34 H 89/53 L 94 11/12/21 03:30 127 H 28 H 91/52 L 98 11/12/21 03:00 143 H 21 90/51 L 94 11/12/21 02:50 141 H 24 94/63 L 96 11/12/21 02:40 142 H 27 H 104/51 L 100 11/12/21 02:30 148 H 35 H 88/62 L 98 11/12/21 02:20 143 H 18 94/63 L 98 11/12/21 02:10 143 H 31 H 94/60 L 99 11/12/21 02:00 136 H 28 H 94/57 L 97 11/12/21 01:40 147 H 26 H 93/67 L 100 11/12/21 01:30 136 H 37 H 89/60 L 100 11/12/21 01:10 133 H 20 91/66 L 76 L 11/12/21 00:40 143 H 27 H 94/68 L 97 11/12/21 00:30 140 H 21 102/60 96 11/12/21 00:20 135 H 17 112/70 96 11/12/21 00:10 134 H 18 94/59 L 95 11/12/21 00:00 36.6 C 100/67 11/11/21 23:40 95/73 L 11/11/21 23:30 102/68 11/11/21 23:15 147 H 22 99 11/11/21 23:10 137 H 17 95/66 L 96 11/11/21 23:08 148 H 11/11/21 23:00 130 H 31 H 96/68 L 99 11/11/21 22:50 152 H 19 97/68 L 97 11/11/21 22:45 155 H 27 H 96 11/11/21 22:40 141 H 21 99/63 L 96 11/11/21 22:30 142 H 22 111/61 96 11/11/21 22:20 133 H 19 93/62 L 95 11/11/21 22:17 141 H 11/11/21 22:10 17 82/68 L 96 11/11/21 22:01 36.4 C L 143 H 18 97/84 L 93 11/11/21 22:00 21 93 11/11/21 21:58 36.4 C L 145 H 20 107/79 100 11/11/21 21:50 180 H 23 123/74 98 11/11/21 21:45 150 H 25 H 97/62 L 94 PG Care Time/CCT Total # of Minutes Spent Total Time Spent with Patient: Total time spent is greater than 50% in coordination of care (as documented) at patient's floor/unit and/or counseling patient: Coding Level of Care Code 50731 Subseq Hosp Care Lvl 3 Diagnoses Bladder hemorrhage N32.89
[2021-11-12] MEDS: MIDODRINE HCL 10 MG TAB PO SCH ×3 (09:53→16:50)
--- NOTE | 2021-11-12 10:10 | Nephrology Consultation ---
Date of Consultation November 12, 2021 Assessment & Plan (1) Acute kidney injury: (2) Gross hematuria: (3) Hypokalemia: (4) Acute hypotension: (5) Hypocalcemia: 66-year-old female with stage IIIA CKD b/l cr 1.3 to 1.4, with recent progressive worsening renal function with repeated episodes of GIOVANA, admitted with gross hematuria, acute blood loss anemia requiring 6 units of PRBC, hypotension and AFib with RVR. Creatinine slightly improved and staying around 2.1 although has multiple electrolyte abnormality including hypokalemia, hypocalcemia and hypomagnesemia. Has been on digoxin and started on small mainly for heart rate control. Had bladder irrigation this morning, continues to have hematuria however seems to have improved somewhat, urine output and measured at this time due to bladder irrigation. --High risk for progressive worsening of renal function with marked hypert ension, monitor urine output, renal function electrolyte closely and replete electrolyte as needed. Received 6 g of calcium gluconate, IV potassium and magnesium supplement. Will follow Thank you for allowing me to participate in your patient's care. 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 Admitted to hospital with GIOVANA and gross hematuria. EMR records were reviewed in detail during pts visit. Marycarmen presented [facility] withacute onset of lower abdominal pain with gross hematuria and passage of multiple clots. she has been having UTI like symptoms for several weeks. On admission CT A/P showed markedly distended bladder filled with hyperdense material suggesting blood clot, Moderate bilateral hydroureteronephrosis which is likely secondary to the distended bladder. No renal or ureteral stones identified. There was also severe body wall edema. Cr was 2.4, Ca 6.7. Hb 6.7. She was placed on CBI with catheter and also underwent Cystoscopy and aggressive hand irrigation by urology. Received 4 PRBC transfusion. Received total 6 g of calcium and currently getting potassium and magnesium infusion. She also developed significant hypotension, AFib with RVR. digoxin IV was given which now switched to p.o. every other daily, Dig level was at goal. Just now started on esmolol for better rate controlled hoping that will help with the blood pressure. H/O Left upper lobe lobectomy in December 2016 for lung ca and had adjuvant chemo with cisplatin/etoposide but did not tolerate well and had nausea and vomiting associated with dehydration leading to GIOVANA and electrolyte abnormalities. After completing 2 of the recommended 4 infusions, she refused additional chemotherapy. 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 Currently not on chemotherapy. Has stage 3A CKD with b/l cr 1.2-1.3 and h/o repeated episode of GIOVANA in the setting of volume depletion with N/V. Over last few months creatinine has been staying close to 2.0. Currently she is feeling poorly, BP remained low, denies significant SOB. UO seems to be low with gross hematuria, however total urine output volume is unclear as she just had bladder irrigation. Allergies Allergy/AdvReac Type Severity Reaction Status Date / Time diltiazem Allergy Severe SHORTNESS Verified 11/10/21 07:20 OF BREATH AND SWELLING OF HANDS AND FACE nut - unspecified Allergy Severe Wheezing Verified 11/10/21 07:20 peanut Allergy Severe Wheezing Verified 11/10/21 07:20 Yeast Allergy Severe Wheezing Verified 11/10/21 07:20 Penicillins Allergy Intermediate WELTS IN Verified 11/10/21 07:20 MOUTH AND SPREAD TO BODY adhesive Allergy Mild BLISTERS Verified 11/10/21 07:20 latex Allergy Mild RASH Verified 11/10/21 07:20 indomethacin Allergy Unknown per pulm Verified 11/10/21 07:20 note tree and shrub pollen Allergy Unknown ELM Verified 11/10/21 07:20 TREE-RASH BLISYERS HANDS ARMS FEET allopurinol Allergy Unknown Unverified 11/10/21 07:20 febuxostat [From Uloric] Allergy Unknown Verified 11/10/21 07:20 oxycodone Allergy Unknown Verified 11/10/21 07:20 codeine AdvReac Mild N&V&GI PAIN Verified 11/10/21 07:20 paroxetine AdvReac Mild GI SYMPTOMS Verified 11/10/21 07:20 varenicline AdvReac Mild GI Verified 11/10/21 07:20 SYMPTOMS,HALLUCINATIONS linaclotide [From Linzess] AdvReac Unknown CAUSED Verified 11/10/21 07:20 ASTHMA ATTACK Home Medications Medication Instructions Recorded Confirmed Type budesonide-formoterol HFA 160 2 puff INHALATION BID #10.2 gm 11/15/20 11/10/21 Rx mcg-4.5 mcg/actuation aerosol inhaler (Symbicort) montelukast 10 mg tablet 10 mg PO HS #30 tab 04/03/21 11/10/21 Rx acetaminophen 325 mg tablet 650 mg PO Q4 PRN 05/28/21 11/10/21 History cholecalciferol (vitamin D3) 25 25 mcg PO BID 05/28/21 11/10/21 History mcg (1,000 unit) tablet sodium chloride 0.65 % nasal spray 1 spray INTRANASAL TID PRN 05/28/21 11/10/21 History aerosol (Saline Nasal) umeclidinium 62.5 mcg/actuation 1 inh INHALATION DAILY 08/13/21 11/10/21 History blister powder for inhalation (Incruse Ellipta) aspirin 81 mg tablet,delayed 81 mg PO QAM 08/22/21 11/10/21 History release (Adult Aspirin Regimen) atorvastatin 20 mg tablet 20 mg PO HS #90 tab 08/22/21 11/10/21 Rx levothyroxine 50 mcg tablet 50 mcg PO DAILY #90 tab 08/22/21 11/10/21 Rx midodrine 10 mg tablet 10 mg PO TID #90 tab 08/22/21 11/10/21 Rx promethazine 25 mg tablet 25 mg PO TID PRN #90 tab 08/22/21 11/10/21 Rx tramadol 50 mg tablet 100 mg PO Q8 PRN #180 tab 08/22/21 11/10/21 Rx hydrocortisone acetate 30 mg 30 mg UT BID #20 ea 09/20/21 11/10/21 Rx rectal suppository pantoprazole 40 mg tablet,delayed 40 mg PO BID #60 tab 09/20/21 11/10/21 Rx release docusate sodium 100 mg capsule 100 mg PO BID 09/24/21 11/10/21 History duloxetine 20 mg capsule,delayed 40 mg PO QAM #60 cap 09/24/21 11/10/21 Rx release lidocaine 5 % topical patch 1 patch TOP DAILY PRN #15 ea 09/24/21 11/10/21 Rx torsemide 20 mg tablet 40 mg PO QAM 09/24/21 11/10/21 History metoprolol tartrate 25 mg tablet 12.5 mg PO BID 11/10/21 11/10/21 History Patient History Medical History (Updated 11/12/21 @ 12:47 by Erlinda Upton MD) Anemia Anxiety Asthma Atrial fibrillation Chronic kidney disease, stage 3 (moderate) F/U DR VILLAGOMEZ Chronic obstructive pulmonary disease with emphysema- on inhalers CML (chronic myelocytic leukemia) F/U DR [facility] Depression Diabetes mellitus, type 2 DIET MANAGED GERD (gastroesophageal reflux disease) Hyperlipidemia Hypertension Hypocalcemia Hypothyroidism Iron deficiency anemia Kidney stones HX Lung cancer, lower lobe 2017--left--sx, chemo On home oxygen therapy 2L n/c continuous Sleep apnea NO LONGER USING CPAP-USES ONLY OXYGEN CONTINUOUSLY SOBOE (shortness of breath on exertion) Stress incontinence in female Temporomandibular joint disorder PAIN BILAT-HAS NEVER LOCKED Surgical History History of appendectomy History of bronchoscopy 2016 History of cardiac cath 11/2017 @ [facility]--no stents History of cholecystectomy History of colonoscopy History of dilatation and curettage History of esophagogastroduodenoscopy (EGD) History of lobectomy of lung lower left lobe 2017 @ [facility] History of open reduction and internal fixation (ORIF) procedure R upper thigh x2--pins/rods in place History of tooth extraction all teeth History of total left knee replacement (TKR) History of total right knee replacement (TKR) Family History Sister Family history of reaction to anesthesia "had an allergic reaction", not sure what happened Arthritis Family history of diabetes mellitus Heart disease Hypertension Mother Family history of diabetes mellitus Myocardial infarction Heart disease Hypertension age 63 due to [place] Grandmother Family history of diabetes mellitus maternal Family/Other Family history of diabetes mellitus maternal uncle/maternal aunts Colorectal cancer Family/Other Family hx of colon cancer paternal cousin Father age 91 Gout Denies family history of Crohn's disease Ulcerative colitis Social History Smoking Status: Unknown if ever smoked Tobacco Type: Cigarettes Age Started Using Tobacco: 8; Age Quit Using Tobacco: 62; Cigarettes Per Day: 2pks; Second Hand Exposure: No; Hx Alcohol Use: No Hx Substance Use: No Preferred Language: [place] Citizen Communication Ability: Effective Visual Impairment: No Limitations Hearing Ability: Normal Pilot Control Operator Helper Required: No Beliefs That Will Affect Care: None marital status: / marital status details: twice; from 1st ; 2nd Current Living Situation: Family Current Living Situation Comment: lives in [place] current occupational status: retired current occupation: former nurse's aid How many Children do You have: 1 Other Information That Helps Us Care for You: No Feels Safe at Home: Yes Safety Concerns: Feels Safe At This Time Childhood Exposure to Second-Hand Smoke: No during the past year weight has: remained stable Dental Care, Regularly: No Physical Activity Frequency: Does not Exercise Seatbelt Use: always Sunscreen Use: No Assistive Devices: Denture - Upper, Denture - Lower and Glasses Physical Exam Constitutional: WD/WN, vitals as above + acute distress, + ill appearing and + obese pale Eyes: + anicteric sclerae ENMT: Ears: no hearing impairment Neck: normal visual inspection Respiratory: no respiratory distress Auscultation: + diminished lung sounds Cardiovascular: Rate/Rhythm: + tachycardic and + irregularly irregular Heart Sounds: normal S1 and normal S2 Extremities: + edema Gastrointestinal (Abdomen): Inspection/Auscultation: normal bowel sounds and + abdominal edema Percussion/Palpation: abdomen soft; abdomen nontender, no guarding and abdomen not rigid Musculoskeletal: Extremities: extremities normal to inspection Skin: no rashes Neurologic: no focal motor deficits and not confused Psychiatric: Orientation: alert and oriented x 3 Affect: euthymic affect Results & Data ([facility]) Vital Signs (Past 12 Hours) Vital Signs Temp Pulse Resp BP Pulse Ox 11/12/21 09:20 140 H 26 H 86 L 11/12/21 09:10 128 H 20 93 11/12/21 09:00 134 H 24 79/56 L 88 L 11/12/21 08:50 136 H 18 95 11/12/21 08:40 141 H 23 96 11/12/21 08:30 123 H 18 93 11/12/21 08:20 132 H 21 97 11/12/21 08:10 133 H 18 95 11/12/21 08:00 121 H 24 85/50 L 91 11/12/21 07:50 117 H 18 94 11/12/21 07:40 122 H 29 H 89/49 L 11/12/21 07:30 122 H 35 H 11/12/21 07:20 143 H 34 H 97 11/12/21 07:10 152 H 37 H 77/48 L 95 11/12/21 07:00 128 H 29 H 84/60 L 98 11/12/21 06:50 133 H 35 H 98 11/12/21 06:40 132 H 32 H 83/58 L 98 11/12/21 06:00 127 H 24 85/65 L 98 11/12/21 05:10 82/69 L 11/12/21 05:00 133 H 26 H 89/57 L 98 11/12/21 04:10 142 H 32 H 90/54 L 97 11/12/21 04:00 36.6 C 146 H 36 H 87/59 L 97 11/12/21 03:50 150 H 22 92/58 L 92 11/12/21 03:48 138 H 11/12/21 03:40 133 H 34 H 89/53 L 94 11/12/21 03:30 127 H 28 H 91/52 L 98 11/12/21 03:00 143 H 21 90/51 L 94 11/12/21 02:50 141 H 24 94/63 L 96 11/12/21 02:40 142 H 27 H 104/51 L 100 11/12/21 02:30 148 H 35 H 88/62 L 98 11/12/21 02:20 143 H 18 94/63 L 98 11/12/21 02:10 143 H 31 H 94/60 L 99 11/12/21 02:00 136 H 28 H 94/57 L 97 11/12/21 01:40 147 H 26 H 93/67 L 100 11/12/21 01:30 136 H 37 H 89/60 L 100 11/12/21 01:10 133 H 20 91/66 L 76 L 11/12/21 00:40 143 H 27 H 94/68 L 97 11/12/21 00:30 140 H 21 102/60 96 11/12/21 00:20 135 H 17 112/70 96 11/12/21 00:10 134 H 18 94/59 L 95 11/12/21 00:00 36.6 C 100/67 11/11/21 23:40 95/73 L 11/11/21 23:30 102/68 11/11/21 23:15 147 H 22 99 11/11/21 23:10 137 H 17 95/66 L 96 11/11/21 23:08 148 H 11/11/21 23:00 130 H 31 H 96/68 L 99 11/11/21 22:50 152 H 19 97/68 L 97 11/11/21 22:45 155 H 27 H 96 11/11/21 22:40 141 H 21 99/63 L 96 11/11/21 22:30 142 H 22 111/61 96 11/11/21 22:20 133 H 19 93/62 L 95 11/11/21 22:17 141 H 11/11/21 22:10 17 82/68 L 96 PG Care Time/CCT Total # of Minutes Spent Total Time Spent with Patient: Total time spent is greater than 50% in coordination of care (as documented) at patient's floor/unit and/or counseling patient: Coding Level of Care Code 76925 Inpt Consult Level 5 Diagnoses Acute kidney injury N17.9 Gross hematuria R31.0 Hypokalemia E87.6 Acute hypotension I95.9 Hypocalcemia E83.51
[2021-11-12] MEDS: DOCUSATE SODIUM 100 MG CAP PO SCH ×2 (10:16→19:56)
[2021-11-12] MEDS: DULoxetine HCL 20 MG CAP PO SCH (10:17)
[2021-11-12] MEDS: CHOLECALCIFEROL 1,000 UNITS 25 MCG TAB PO SCH ×2 (10:17→19:56)
[2021-11-12] MEDS: FLUDROCORTISONE ACETATE 0.1 MG TAB PO SCH (10:55)
[2021-11-12] MEDS: HYDROCORTISONE SOD 50 MG in SYRINGE 0 ML IV SCH ×2 (10:56→16:50)
[2021-11-12] MEDS: FLUTICASONE/VILANTEROL 100/25MCG 14 PUFFS/INHALER INH SCH (10:56)
[2021-11-12] MEDS: UMECLIDINIUM BROMIDE 62.5MCG/BLISTER 7 PUFFS/INHALER INH SCH (10:56)
[2021-11-12] MEDS: PANTOprazole 40 MG TAB PO SCH ×2 (10:57→19:57)
--- NOTE | 2021-11-12 11:11 | Hospitalist Progress Note ---
Date of Service November 12, 2021 Assessment & Plan (1) Hemorrhagic shock: Plan: 2nd acute blood loss anemia from gross hematuria. POD #1 s/p cystoscopy with evacuation of large amount of blood in bladder. During the cysto noted to have an extraperitoneal bladder perforation. s/p 7 units of pRBCs during the hospital stay. Last unit was on 11/11/21. H/H stable this am and afternoon with stable gross-appearing urine. Remains on phenylephrine and stress dose hydrocortisone for BP support. Procal elevated; concern for UTI based on gross findings of bladder during cysto - could have element of septic shock as well. Defer management to ICU attending. (2) Extraperitoneal bladder perforation: Plan: discovered during her cystoscopy. bleeding observed may have been extraperitoneal in origin per urology. either way - CBI stopped. kelley in place. hopefully this perforation will heal on its own over several weeks. (3) Acute kidney injury: Plan: baseline Cr high 1's peak 2.38 improved to 1 with supportive care 2nd to prerenal causes, post-renal, etc serial BMPs nephrology consulted and recs appreciated (4) Gross hematuria: Plan: Present on admission. Initial Rx in ER - 3-way kelley placed; CBI started. Urine sent for culture. Empiric rocephin 2gm IV daily. 2 units PRBCS given on hospital day #1. Admitted to PCU. [facility] [place] saw in consult - larger kelley catheter placed, hand irrigation performed, numerous clots removed, CBI continu es. AM of 11/11/21 -- additional bleeding resulting in worsening hypotension. 2 more units PRBCs given. Went to OR with Dr Harding 11/11/21 -- large amount of clots/blood found in bladder; evacuated. Entire bladder wall with severe inflammation, ulcers, etc. Biopsies taken, Bladder wall fulgurated. Extraperitoneal bladder wall perforation was discovered. Post-op went to PACU - ongoing hypotension, afib RVR, confusion, pain, etc all present. Admitted to ICU from the PACU due to shock/hypotension. Since ICU admission H/H are more stable. Urology assistance greatly appreciated. Surgical path from her procedure is pending. (5) Acute on chronic anemia: Plan: Chronic anemia, baseline Hb 7.5 to 9. 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 Hb <7 at time of presentation. Acute anemia 2nd to active bleeding from bladder. Has received total of 7 units of blood since admission. (6) Acute blood loss anemia: Plan: as above serial CBCs (7) Hypotension: Plan: as above in #1 hemorrhagic ?septic cortisol >20, but receiving stress dose steroids for additional BP support (8) Atrial fibrillation with rapid ventricular response: Plan: ongoing appreciate Dr Rosenbaum's consultation esmolol drip for rate control rates in 100-110 range are acceptable (9) CML (chronic myeloid leukemia): Plan: Follows with [facility], not on medications for such. Previous attempts at Rx were unsuccessful - could not tolerate her chemo agents. She has blast cells on cbc. 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 Dr Hernandez saw in consult - advises initiation of hydroxyurea 500mg once daily. Serial cbcs. Appreciate Dr hernandez's input. very very poor prognosis. (10) Thrombocytosis: Plan: 2nd to CML. Fe deficiency can also cause high platelets as well. Some of the elevated level could be reactive to her illness as well. (11) Chronic kidney disease, stage 3 (moderate): Plan: Baseline CrCl about 30. Mild GIOVANA in the setting of hypotension, bladder issues, etc. BMP am. see above. (12) Hypothyroidism: Plan: TSH 09/2021 wnl. Cont synthroid. (13) Hyperlipidemia: Plan: Continue statin. (14) Edema: Plan: 2nd to chronic lymphedema, severe hypoalbuminemia (albumin <2 at time of admission), chronic diastolic CHF, CKD, etc. Can't rule out DVTs. Cannot address due to other acute issues. (15) COPD (chronic obstructive pulmonary disease): Plan: with chronic hypoxic resp failure, on home O2. stable. no exacerbation. cont inhalers. O2 sats remain stable. (16) Gout: Plan: no issues at this time (17) GERD (gastroesophageal reflux disease): Plan: Cont PPI twice daily. (18) Chronic respiratory failure with hypoxia, on home O2 therapy: Plan: stable, without exacerbation. (19) Hypertension: Plan: hold metoprolol. cont midodrine. BP support with phenylephrine, steroids, +/- fluids. (20) Diabetes mellitus, type 2: Plan: previous HbA1Cs <6%. BSGs have been all wnl. (21) DVT prophylaxis: Plan: SCDs. Chemical means contraindicated in light of #1. Plan: I updated pt's daughter, Skyla Lindsay, extensively this evening Skyla understands pt's poor prognosis. Made her aware of blast cells/transformation to acute leukemia, bladder issues, bleeding, etc Recommended she visit with her mom. cont to refine goals of care with pt but it seems she would NOT want aggressive care with continued decline. DNR/DNI. Admission and Anticipated Discharge Date Admission Date: November 10, 2021 Subjective had unstable perioperative course yesterday - rapid a.fib, hypotension, significant blood loss from bladder, etc required Tx to ICU she is s/p 7 units of PRBCs since admission overnight required use of phenylephrine for BP support now on esmolol drip for rate control for a.fib pt very weak during the visit but was lucid and understands gravity of her situation she did voice that if she worsened she would not want aggressive measures and would "want to be comfortable" told her that it appears her CML is transforming to acute leukemia denied pain during the visit denied dyspnea no appetite just wants to rest urine in kelley bag slightly more dark than pink afib rates during my visit - low 100s Review of Systems Review of Systems: gen - severe weakness, fatigue, c/o being cold and asking for more blankets CV - no cp, no orthopnea GI - no pain or nausea pulm - denies dyspnea at rest Physical Exam Physical Exam: gen - sleepy but awake, able to answer all questions, good insight into her medical issues mouth - MM dry neck - mild JVD seen heart - irregularly irregular, s1 s2, no murmurs; tachy lungs - rales R base; no rales on left; b/l wheezes; no increased work of breathing abd - colostomy L abdomen - minimal brown liquid stool; BS+; NT ext - 1-2+ edema/lymphedema b/l, pulses 1+ b/l; cool feet psych - a/o x 3 skin - pallor Results & Data Results & Data ([facility]) Vital Signs (Past 12 Hours) Vital Signs Temp Pulse Resp BP Pulse Ox 11/12/21 09:20 140 H 26 H 86 L 11/12/21 09:10 128 H 20 93 11/12/21 09:00 134 H 24 79/56 L 88 L 11/12/21 08:50 136 H 18 95 11/12/21 08:40 141 H 23 96 11/12/21 08:30 123 H 18 93 11/12/21 08:20 132 H 21 97 11/12/21 08:10 133 H 18 95 11/12/21 08:00 121 H 24 85/50 L 91 11/12/21 07:50 117 H 18 94 11/12/21 07:40 122 H 29 H 89/49 L 11/12/21 07:30 122 H 35 H 11/12/21 07:20 143 H 34 H 97 11/12/21 07:10 152 H 37 H 77/48 L 95 11/12/21 07:00 128 H 29 H 84/60 L 98 11/12/21 06:50 133 H 35 H 98 11/12/21 06:40 132 H 32 H 83/58 L 98 11/12/21 06:00 127 H 24 85/65 L 98 11/12/21 05:10 82/69 L 11/12/21 05:00 133 H 26 H 89/57 L 98 11/12/21 04:10 142 H 32 H 90/54 L 97 11/12/21 04:00 36.6 C 146 H 36 H 87/59 L 97 11/12/21 03:50 150 H 22 92/58 L 92 11/12/21 03:48 138 H 11/12/21 03:40 133 H 34 H 89/53 L 94 11/12/21 03:30 127 H 28 H 91/52 L 98 11/12/21 03:00 143 H 21 90/51 L 94 11/12/21 02:50 141 H 24 94/63 L 96 11/12/21 02:40 142 H 27 H 104/51 L 100 11/12/21 02:30 148 H 35 H 88/62 L 98 11/12/21 02:20 143 H 18 94/63 L 98 11/12/21 02:10 143 H 31 H 94/60 L 99 11/12/21 02:00 136 H 28 H 94/57 L 97 11/12/21 01:40 147 H 26 H 93/67 L 100 11/12/21 01:30 136 H 37 H 89/60 L 100 11/12/21 01:10 133 H 20 91/66 L 76 L 11/12/21 00:40 143 H 27 H 94/68 L 97 11/12/21 00:30 140 H 21 102/60 96 11/12/21 00:20 135 H 17 112/70 96 11/12/21 00:10 134 H 18 94/59 L 95 11/12/21 00:00 36.6 C 100/67 11/11/21 23:40 95/73 L 11/11/21 23:30 102/68 11/11/21 23:15 147 H 22 99 Laboratory Results Laboratory Results - last 24 hr 11/10/21 11/11/21 11/11/21 07:00 14:53 18:00 WBC RBC Hgb 7.8 L POC Hgb 7.8 L Hct 23.8 L POC Hct 23 L MCV MCH MCHC RDW Std Deviation RDW Coeff of Bruce Plt Count MPV Immature Gran % (Auto) Neut % (Auto) Lymph % (Auto) Bee % (Auto) Eos % (Auto) Baso % (Auto) Neut # (Auto) Lymph # (Auto) Bee # (Auto) Eos # (Auto) Baso # (Auto) Immature Gran # (Auto) Absolute Nucleated RBC Nucleated RBC % (auto) Neutrophils % (Manual) Lymphocytes % (Manual) Monocytes % (Manual) Eosinophils % (Manual) Basophils % (Manual) Metamyelocytes % (Man) Myelocytes % (Man) Blast Cells % (Manual) Neutrophils # (Manual) Total Absolute Neuts Lymphocytes # (Manual) Total Abs Lymphocytes Monocytes # (Manual) Eosinophils # (Manual) Basophils # (Manual) Metamyelocytes # (Man) Myelocytes # (Manual) Blast Cells # (Man) RBC Morphology Polychromasia Echinocytes PT INR Fibrinogen Sample Site POC pH POC pCO2 POC pO2 POC HCO3 POC Base Excess POC ABG O2 Sat Lobo Test O2 Delivery Device POC FiO2 POC Sodium 138 Sodium POC Potassium 4.3 Potassium POC Chloride 104 Chloride Carbon Dioxide POC Total CO2 20 L Anion Gap POC Anion Gap 19.0 POC BUN 64 H BUN Creatinine POC Creatinine 2.4 H Est Cr Clr Drug Dosing Est GFR ( Amer) Est GFR (Non-Af Amer) BUN/Creatinine Ratio Glucose POC Glucose POC Glucose (other) 101 H Lactate Calcium POC Ioniz Calcium Lizeth 1.11 L Phosphorus Magnesium Total Bilirubin Direct Bilirubin AST ALT Alkaline Phosphatase Troponin I Total Protein Albumin Procalcitonin Digoxin Blood Type A Negative Antibody Screen NEGATIVE Crossmatch See Detail 11/11/21 11/11/21 11/11/21 18:38 20:17 20:17 WBC 75.73 H* D RBC 3.03 L Hgb 8.8 L POC Hgb Hct 27.6 L POC Hct MCV 91.1 MCH 29.0 MCHC 31.9 L RDW Std Deviation 55.0 H RDW Coeff of Bruce 16.8 H Plt Count 702 H MPV 11.2 H Immature Gran % (Auto) Neut % (Auto) Lymph % (Auto) Bee % (Auto) Eos % (Auto) Baso % (Auto) Neut # (Auto) Lymph # (Auto) Bee # (Auto) Eos # (Auto) Baso # (Auto) Immature Gran # (Auto) Absolute Nucleated RBC 0.62 H Nucleated RBC % (auto) 0.8 Neutrophils % (Manual) 77.1 Lymphocytes % (Manual) 3.5 Monocytes % (Manual) 2.6 Eosinophils % (Manual) 5.3 Basophils % (Manual) 5.3 Metamyelocytes % (Man) 3.5 Myelocytes % (Man) 1.8 Blast Cells % (Manual) 0.9 Neutrophils # (Manual) 58.39 H Total Absolute Neuts 58.39 H Lymphocytes # (Manual) 2.65 Total Abs Lymphocytes 2.65 Monocytes # (Manual) 1.97 H Eosinophils # (Manual) 4.01 H Basophils # (Manual) 4.01 H Metamyelocytes # (Man) 2.65 H Myelocytes # (Manual) 1.36 H Blast Cells # (Man) 0.68 H RBC Morphology Polychromasia 1+ Echinocytes 1+ PT INR Fibrinogen Sample Site POC pH POC pCO2 POC pO2 POC HCO3 POC Base Excess POC ABG O2 Sat Lobo Test O2 Delivery Device POC FiO2 POC Sodium Sodium 142 POC Potassium Potassium 4.2 POC Chloride Chloride 111 H Carbon Dioxide 19 L POC Total CO2 Anion Gap 12.0 H POC Anion Gap POC BUN BUN 51 H Creatinine 2.34 H POC Creatinine Est Cr Clr Drug Dosing 26.1 Est GFR ( Amer) 24.0 Est GFR (Non-Af Amer) 20.7 BUN/Creatinine Ratio 21.9 H Glucose 169 H POC Glucose 130 H POC Glucose (other) Lactate Calcium 7.0 L POC Ioniz Calcium Lizeth Phosphorus 5.1 H Magnesium 1.5 L Total Bilirubin Direct Bilirubin AST ALT Alkaline Phosphatase Troponin I < 0.015 Total Protein Albumin Procalcitonin Digoxin Blood Type Antibody Screen Crossmatch 11/11/21 11/11/21 11/11/21 20:17 20:17 20:52 WBC RBC Hgb POC Hgb Hct POC Hct MCV MCH MCHC RDW Std Deviation RDW Coeff of Bruce Plt Count MPV Immature Gran % (Auto) Neut % (Auto) Lymph % (Auto) Bee % (Auto) Eos % (Auto) Baso % (Auto) Neut # (Auto) Lymph # (Auto) Bee # (Auto) Eos # (Auto) Baso # (Auto) Immature Gran # (Auto) Absolute Nucleated RBC Nucleated RBC % (auto) Neutrophils % (Manual) Lymphocytes % (Manual) Monocytes % (Manual) Eosinophils % (Manual) Basophils % (Manual) Metamyelocytes % (Man) Myelocytes % (Man) Blast Cells % (Manual) Neutrophils # (Manual) Total Absolute Neuts Lymphocytes # (Manual) Total Abs Lymphocytes Monocytes # (Manual) Eosinophils # (Manual) Basophils # (Manual) Metamyelocytes # (Man) Myelocytes # (Manual) Blast Cells # (Man) RBC Morphology Polychromasia Echinocytes PT INR Fibrinogen Sample Site R Radial POC pH 7.18 L* POC pCO2 41 POC pO2 74 L POC HCO3 15 L POC Base Excess -13.0 L POC ABG O2 Sat 90.0 Lobo Test Pass O2 Delivery Device Cube/Tent POC FiO2 4 POC Sodium Sodium POC Potassium Potassium POC Chloride Chloride Carbon Dioxide POC Total CO2 17 L Anion Gap POC Anion Gap POC BUN BUN Creatinine POC Creatinine Est Cr Clr Drug Dosing Est GFR ( Amer) Est GFR (Non-Af Amer) BUN/Creatinine Ratio Glucose POC Glucose POC Glucose (other) Lactate 3.3 H* Calcium POC Ioniz Calcium Lizeth Phosphorus Magnesium Total Bilirubin Direct Bilirubin AST ALT Alkaline Phosphatase Troponin I Total Protein Albumin Procalcitonin 0.75 H Digoxin Blood Type Antibody Screen Crossmatch 11/12/21 11/12/21 11/12/21 04:53 05:08 05:08 WBC 99.98 H* D RBC 2.75 L Hgb 8.1 L POC Hgb Hct 24.6 L POC Hct MCV 89.5 MCH 29.5 MCHC 32.9 RDW Std Deviation 52.6 H RDW Coeff of Bruce 16.4 H Plt Count 599 H MPV 11.7 H Immature Gran % (Auto) 6.3 Neut % (Auto) 88.8 Lymph % (Auto) 3.5 Bee % (Auto) 0.8 Eos % (Auto) 0.0 Baso % (Auto) 0.6 Neut # (Auto) 88.76 H Lymph # (Auto) 3.50 H Bee # (Auto) 0.79 H Eos # (Auto) 0.04 Baso # (Auto) 0.56 H Immature Gran # (Auto) 6.33 H Absolute Nucleated RBC 0.79 H Nucleated RBC % (auto) 0.8 Neutrophils % (Manual) Lymphocytes % (Manual) Monocytes % (Manual) Eosinophils % (Manual) Basophils % (Manual) Metamyelocytes % (Man) Myelocytes % (Man) Blast Cells % (Manual) Neutrophils # (Manual) Total Absolute Neuts Lymphocytes # (Manual) Total Abs Lymphocytes Monocytes # (Manual) Eosinophils # (Manual) Basophils # (Manual) Metamyelocytes # (Man) Myelocytes # (Manual) Blast Cells # (Man) RBC Morphology Unremarkable Polychromasia Echinocytes PT 13.2 H INR 1.3 H Fibrinogen Sample Site L Radial POC pH 7.35 POC pCO2 37 POC pO2 41 L POC HCO3 20 POC Base Excess -6.0 POC ABG O2 Sat 73.0 L Lobo Test NA O2 Delivery Device Other POC FiO2 POC Sodium Sodium POC Potassium Potassium POC Chloride Chloride Carbon Dioxide POC Total CO2 21 L Anion Gap POC Anion Gap POC BUN BUN Creatinine POC Creatinine Est Cr Clr Drug Dosing Est GFR ( Amer) Est GFR (Non-Af Amer) BUN/Creatinine Ratio Glucose POC Glucose POC Glucose (other) Lactate Calcium POC Ioniz Calcium Lizeth Phosphorus Magnesium Total Bilirubin Direct Bilirubin AST ALT Alkaline Phosphatase Troponin I Total Protein Albumin Procalcitonin Digoxin Blood Type Antibody Screen Crossmatch 11/12/21 11/12/21 11/12/21 05:08 05:08 05:08 WBC RBC Hgb POC Hgb Hct POC Hct MCV MCH MCHC RDW Std Deviation RDW Coeff of Bruce Plt Count MPV Immature Gran % (Auto) Neut % (Auto) Lymph % (Auto) Bee % (Auto) Eos % (Auto) Baso % (Auto) Neut # (Auto) Lymph # (Auto) Bee # (Auto) Eos # (Auto) Baso # (Auto) Immature Gran # (Auto) Absolute Nucleated RBC Nucleated RBC % (auto) Neutrophils % (Manual) Lymphocytes % (Manual) Monocytes % (Manual) Eosinophils % (Manual) Basophils % (Manual) Metamyelocytes % (Man) Myelocytes % (Man) Blast Cells % (Manual) Neutrophils # (Manual) Total Absolute Neuts Lymphocytes # (Manual) Total Abs Lymphocytes Monocytes # (Manual) Eosinophils # (Manual) Basophils # (Manual) Metamyelocytes # (Man) Myelocytes # (Manual) Blast Cells # (Man) RBC Morphology Polychromasia Echinocytes PT INR Fibrinogen Sample Site POC pH POC pCO2 POC pO2 POC HCO3 POC Base Excess POC ABG O2 Sat Lobo Test O2 Delivery Device POC FiO2 POC Sodium Sodium 138 POC Potassium Potassium 3.2 L D POC Chloride Chloride 101 Carbon Dioxide 30 POC Total CO2 Anion Gap 7.0 POC Anion Gap POC BUN BUN 46 H Creatinine 2.03 H D POC Creatinine Est Cr Clr Drug Dosing 30.1 Est GFR ( Amer) 28.5 Est GFR (Non-Af Amer) 24.6 BUN/Creatinine Ratio 22.6 H Glucose 114 H POC Glucose POC Glucose (other) Lactate 1.9 Calcium 6.4 L POC Ioniz Calcium Lizeth Phosphorus 4.4 Magnesium 1.5 L Total Bilirubin 0.6 Direct Bilirubin 0.2 AST 22 ALT 11 L Alkaline Phosphatase 71 Troponin I Total Protein 3.9 L Albumin 1.8 L Procalcitonin Digoxin 1.9 Blood Type Antibody Screen Crossmatch 11/12/21 09:04 WBC RBC Hgb POC Hgb Hct POC Hct MCV MCH MCHC RDW Std Deviation RDW Coeff of Bruce Plt Count MPV Immature Gran % (Auto) Neut % (Auto) Lymph % (Auto) Bee % (Auto) Eos % (Auto) Baso % (Auto) Neut # (Auto) Lymph # (Auto) Bee # (Auto) Eos # (Auto) Baso # (Auto) Immature Gran # (Auto) Absolute Nucleated RBC Nucleated RBC % (auto) Neutrophils % (Manual) Lymphocytes % (Manual) Monocytes % (Manual) Eosinophils % (Manual) Basophils % (Manual) Metamyelocytes % (Man) Myelocytes % (Man) Blast Cells % (Manual) Neutrophils # (Manual) Total Absolute Neuts Lymphocytes # (Manual) Total Abs Lymphocytes Monocytes # (Manual) Eosinophils # (Manual) Basophils # (Manual) Metamyelocytes # (Man) Myelocytes # (Manual) Blast Cells # (Man) RBC Morphology Polychromasia Echinocytes PT INR Fibrinogen 296 Sample Site POC pH POC pCO2 POC pO2 POC HCO3 POC Base Excess POC ABG O2 Sat Lobo Test O2 Delivery Device POC FiO2 POC Sodium Sodium POC Potassium Potassium POC Chloride Chloride Carbon Dioxide POC Total CO2 Anion Gap POC Anion Gap POC BUN BUN Creatinine POC Creatinine Est Cr Clr Drug Dosing Est GFR ( Amer) Est GFR (Non-Af Amer) BUN/Creatinine Ratio Glucose POC Glucose POC Glucose (other) Lactate Calcium POC Ioniz Calcium Lizeth Phosphorus Magnesium Total Bilirubin Direct Bilirubin AST ALT Alkaline Phosphatase Troponin I Total Protein Albumin Procalcitonin Digoxin Blood Type Antibody Screen Crossmatch PG Care Time/CCT Total # of Minutes Spent Total Time Spent with Patient: Total time spent is greater than 50% in coordination of care (as documented) at patient's floor/unit and/or counseling patient: Coding Level of Care Code 21669 Subseq Hosp Care Lvl 3 Diagnoses Gross hematuria R31.0 Acute on chronic anemia D64.9 Acute blood loss anemia D62 Hypotension I95.9 Atrial fibrillation with rapid ventricular response I48.91 CML (chronic myeloid leukemia) C92.10 Thrombocytosis D75.839 Chronic kidney disease, stage 3 (moderate) N18.3 Hypothyroidism E03.9 Hyperlipidemia E78.5 Hyperlipidemia type: unspecified Edema R60.9 COPD (chronic obstructive pulmonary disease) J43.9 COPD type: emphysema Emphysema type: unspecified Gout [id number] Chronicity: chronic Gout etiology: unspecified cause Gout site: multiple sites GERD (gastroesophageal reflux disease) K21.9 Chronic respiratory failure with hypoxia, on home O2 therapy J96.11; Z99.81 Hypertension I10 Hypertension type: essential hypertension Diabetes mellitus, type 2 E11.9 DVT prophylaxis Z29.9 Acute kidney injury N17.9 Extraperitoneal bladder perforation N32.89 Hemorrhagic shock R57.8 (1) Gout Chronicity: chronic Gout etiology: unspecified cause Gout site: multiple sites Qualified Code(s): [id number] - Idiopathic chronic gout, multiple sites, without tophus (tophi) (2) Hyperlipidemia Hyperlipidemia type: unspecified Qualified Code(s): E78.5 - Hyperlipidemia, unspecified (3) COPD (chronic obstructive pulmonary disease) COPD type: emphysema Emphysema type: unspecified Qualified Code(s): J43.9 - Emphysema, unspecified (4) Hypertension Hypertension type: essential hypertension Qualified Code(s): I10 - Essential (primary) hypertension
--- NOTE | 2021-11-12 12:35 | Consultation Report ---
HEMATOLOGY CONSULTATION DATE OF SERVICE: 11/12/2021 REASON FOR CONSULTATION: A 66-year-old female well known to [facility] with history of chronic myelogenous leukemia, admitted to [facility] with gross hematuria. HISTORY OF PRESENT ILLNESS: Marycarmen is a pleasant 66-year-old female well known to [facility], prior patient o f Dr. Alex Lucero's, with both history of non-small cell lung cancer and chronic myelogenous leuke gama. Apparently, the patient was admitted with subacute-onset lower abdominal pain and gross hematur ia with passage of multiple clots in the night prior to admission. Pain was constant and apparently i ntermixed with waves of severe pain. She denies any fevers, but apparently experienced some chills. She definitely notes a decline in her appetite leading to admission. She was last seen in the office in July by Shante Yoder, physician's care management assistant, at which time had not been compliant and/o r intolerant of TKI therapy moving forward. She also has history of non-small cell lung cancer, squa mous cell carcinoma diagnosed in 2016, status post lobectomy. She was subsequently diagnosed with CM L in 04/2019 and apparently has failed Gleevec, bosutinib, and dasatinib. She estimates being off th erapy for approximately 6 months. I was alerted by Marycarmen's admission to hospital by Dr. Sutherland, and n ot surprisingly, blasts are emerging in the patient's peripheral blood. I visited with Marycarmen at [facility] this morning. She understands the difficulties she faces and advised her that at some point we n eed to find a suitable agent for her to hopefully gain remission both hematologically and molecularly . PAST MEDICAL HISTORY: Positive for anxiety, asthma, atrial fibrillation, chronic kidney disease, [employer], CML, type 2 diabetes mellitus, gastroesophageal reflux disease, hyperlipidemia, hypertension, hypo thyroidism, iron-deficiency anemia, squamous cell carcinoma of the left lower lobe, sleep apnea, TMJ. PAST SURGICAL HISTORY: Includes bilateral knee replacement surgeries, tooth extraction, ORIF of righ t femur, history of lobectomy left lower lobe in 2017, history of EGD, dilatation and curettage, colo noscopy, cholecystectomy, cardiac catheterization, bronchoscopy, appendectomy. MEDICATIONS: Flonase 2 puffs inhaled b.i.d., montelukast 10 mg p.o. daily, acetaminophen 650 mg p.o. q.4 hours p.r.n., cholecalciferol 25 mcg p.o. b.i.d., aspirin 81 mg p.o. daily, atorvastatin 20 mg p .o. daily, levothyroxine 50 mcg p.o. daily, midodrine 10 mg p.o. t.i.d., promethazine 25 mg p.o. t.i. d. p.r.n., tramadol 100 mg p.o. q.8 hours p.r.n., Protonix 40 mg p.o. b.i.d., docusate sodium 100 mg p.o. b.i.d., duloxetine 40 mg p.o. daily, torsemide 40 mg p.o. daily, metoprolol 12.5 mg p.o. b.i.d. ALLERGIES: LIST IS EXTENSIVE. DILTIAZEM, PEANUTS, YEAST, PENICILLINS, ADHESIVE, LATEX, INDOMETHACIN, TREE AND SHRUB POLLEN, ALLOPURINOL, OXYCODONE, CODEINE, PAROXETINE, VARENICLINE, LINZESS. FAMILY HISTORY: Mother with history of diabetes mellitus and cardiovascular disease, at age 63 due to myocardial infarction. Father at age 91 from natural causes. He also suffered from gout . REVIEW OF SYSTEMS: As per HPI. PHYSICAL EXAMINATION: GENERAL: A very pleasant, somewhat distressed 66-year-old female patient, not in extremis. VITAL SIGNS: Temperature 36.6, pulse 127, respiratory rate 24, blood pressure 85/65. SKIN: Warm, dry, noncyanotic without petechia, rash or ecchymosis. HEENT: Atraumatic, normocephalic. Eyes: PERRLA. EOMI. Sclerae are nonicteric. No conjunctival in jection. Nares patent without rhinorrhea or discharge. Throat clear. Tongue midline. Mucous membr anes are moist. NECK: Supple without JVD or thyromegaly. LYMPH NODES: No cervical or supraclavicular palpable nodes. HEART: Tachy, but regular. LUNGS: Clear to auscultation. ABDOMEN: Soft, nontender, nondistended. EXTREMITIES: No clubbing, cyanosis or edema. NEUROLOGIC: She is awake, alert and oriented x3. Cranial nerves grossly intact. LABORATORY DATA: WBC count 100,000, hemoglobin 8.1, platelet count 599,000. White cell differential with scattered monocytes, eosinophils, basophils, metamyelocytes, myelocytes and blasts. Sodium 138, potassium 4.3, chloride 104, carbon dioxide 20, creatinine 2.03, BUN 46, albumin 1.8. IMPRESSION: 1. Gross hematuria, urinary tract infection versus a bladder lesion. 2. Chronic myelogenous leukemia, in blast crisis. 3. Atrial fibrillation with a rapid ventricular response. 4. Chronic kidney disease. 5. Hypoalbuminemia. 7. Hypothyroidism. 8. Chronic obstructive pulmonary disease. 9. Type 2 diabetes mellitus. PLAN: Marycarmen Schilling is a pleasant, very unfortunate 66-year-old female patient who was admitted to [facility] and admitted to the hospitalist service for subacute-onset hematuria. The patient underwent cystoscopy and cystogram, extensive clot evacuation, transurethral resection of bl adder tumor with pathology pending. The bladder tumor is a least of her problems. She is currently in blast crisis from untreated chronic myelogenous leukemia. The patient was last seen by Shante Yoder, our physician's care management assistant in mid July. Based on her documentation and corroborated with Marycarmen at bedside, she has been intolerant to TKI therapy to date. She has been on Gleevec, dasatini b, and bosutinib -- all of which were discontinued on the patient's own accord because of intolerance . Clearly, she has a fair amount of immaturity seen on white cell differential, which indicates ongo ing blast crisis. During hospitalization, the only thing we can do at this point is to place her on low-dose hydroxyurea 500 mg to start initially and then titrate her dosing upward with daily peripher al blood count determination. The patient understands the gravity of the situation and at some point need to perhaps try another TKI. Nilotinib comes to mind as an alternative moving forward. Without further intervention, Marycarmen will succumb to acute leukemia. Clinical circumstance was discussed ext ensively with Dr. Sutherland and we will continue to follow Marycarmen periodically during the hospitalization. Thank you very much for allowing me to participate in her care. If you have any questions or concern s, please feel free to contact me at any time. Job ID: [id number]
[2021-11-12 15:27] LABS: Hematocrit (blood only) 26.8 % (37-47); Hemoglobin 8.6 g/dL (12.0-16.0)
[2021-11-12] MEDS: cefTRIAXone SODIUM 2,000 MG in DEXTROSE 5% 50 ML IV SCH (16:50)
--- NOTE | 2021-11-12 16:58 | Cardiology Progress Note ---
Date of Service November 12, 2021 Assessment & Plan (1) Atrial fibrillation with rapid ventricular response: (2) Hypotension: Plan: Agree with Florinef and IV fluid resuscitation as needed. Allow some degree of permissive tachycardia, since controlling her heart rate does not seem to benefit her blood pressure. Historically, some degree of hypotension is expected in this patient, however if more severe hypotension persists in the absence of ongoing blood loss may need to consider electrical cardioversion and attempt to regain sinus rhythm. Will continue to follow. Admission and Anticipated Discharge Date Admission Date: November 10, 2021 Subjective Patient resting quietly, no new symptoms. Although esmolol was successful in reducing her ventricular rate her blood pressure did not rise, in fact her pressure dropped and she is now off esmolol and has been requiring additional phenylephrine. Results & Data ([facility]) Vital Signs (Past 12 Hours) Vital Signs Pulse Resp BP Pulse Ox 11/12/21 15:45 130 H 18 98/34 L 97 11/12/21 15:30 157 H 19 90/60 L 97 11/12/21 15:15 165 H 19 92/58 L 96 11/12/21 15:00 152 H 22 98 11/12/21 14:46 137 H 20 80/46 L 98 11/12/21 14:45 122 H 25 H 97 11/12/21 14:30 142 H 18 98 11/12/21 14:15 120 H 20 88 L 11/12/21 14:00 121 H 37 H 96 11/12/21 13:45 126 H 22 88 L 11/12/21 13:30 144 H 17 93 11/12/21 13:15 128 H 29 H 96 11/12/21 13:00 137 H 39 H 95 11/12/21 12:45 130 H 19 81/56 L 96 11/12/21 12:30 130 H 26 H 74/53 L 87 L 11/12/21 12:15 125 H 20 74/50 L 93 11/12/21 12:00 135 H 26 H 73/58 L 96 11/12/21 11:45 131 H 36 H 91 11/12/21 11:30 128 H 20 62/42 L 96 11/12/21 11:15 112 H 27 H 56/45 L 90 11/12/21 11:00 103 H 37 H 62/34 L 94 11/12/21 10:45 103 H 32 H 97 11/12/21 10:30 105 H 20 66/38 L 96 11/12/21 10:15 99 11/12/21 10:00 110 H 21 96 11/12/21 09:45 103 H 38 H 95 11/12/21 09:30 135 H 31 H 11/12/21 09:20 140 H 26 H 96 11/12/21 09:10 128 H 20 93 11/12/21 09:00 134 H 24 79/56 L 88 L 11/12/21 08:50 136 H 18 95 11/12/21 08:40 141 H 23 96 11/12/21 08:30 123 H 18 93 11/12/21 08:20 132 H 21 97 11/12/21 08:10 133 H 18 95 11/12/21 08:00 121 H 24 85/50 L 91 11/12/21 07:50 117 H 18 94 11/12/21 07:40 122 H 29 H 89/49 L 11/12/21 07:30 122 H 35 H 11/12/21 07:20 143 H 34 H 97 11/12/21 07:10 152 H 37 H 77/48 L 95 11/12/21 07:00 128 H 29 H 84/60 L 98 11/12/21 06:50 133 H 35 H 98 11/12/21 06:40 132 H 32 H 83/58 L 98 11/12/21 06:00 127 H 24 85/65 L 98 11/12/21 05:10 82/69 L 11/12/21 05:00 133 H 26 H 89/57 L 98 PG Care Time/CCT Total # of Minutes Spent Total Time Spent with Patient: Total time spent is greater than 50% in coordination of care (as documented) at patient's floor/unit and/or counseling patient: Coding Level of Care Code None Diagnoses Atrial fibrillation with rapid ventricular response I48.91 Hypotension I95.9
[2021-11-12] MEDS: HYDROmorphone INJ 0.5 MG/0.5 ML SYR IV PRN (19:40)
[2021-11-12] MEDS: MONTELUKAST SODIUM 10 MG TABLET PO SCH (19:56)
[2021-11-12] MEDS: ATORVASTATIN 20 MG TAB PO SCH (19:56)
[2021-11-13] MEDS: PHENYLEPHRINE HCL 20 MG in SODIUM CHLORIDE 0.9% 500 ML IV SCH ×7 (00:52→15:22)
[2021-11-13] MEDS: HYDROCORTISONE SOD 50 MG in SYRINGE 0 ML IV SCH ×4 (00:53→19:20)
[2021-11-13 02:19] LABS: HCO3 VBG 11 mmol/L; PCO2 VBG 27 mmHg (38-50); PO2 VBG 136 mmHg; pH VBG 7.25 (7.36-7.41)
[2021-11-13 02:35] LABS: Oxygen Saturation VBG < 60.0 %
[2021-11-13] MEDS: NORMOSOL-R 1,000 ML IV SCH (05:15)
[2021-11-13] MEDS: LEVOTHYROXINE SODIUM 50 MCG TABLET PO SCH (05:17)
[2021-11-13 05:41] LABS: Hematocrit (blood only) 19.3 % (37-47); Hemoglobin 6.3 g/dL (12.0-16.0); INR 1.6 (0.9-1.1); Mean Corpuscular Hemoglobin 29.7 pg (25-34); Mean Corpuscular Hgb Conc 32.6 g/dL (32-36); Nucleated RBC # (auto) 0.39 K/uL (0-0); Nucleated RBC % (auto) 0.5 %; Platelet Count 410 K/uL (130-400); Prothrombin Time 15.6 Seconds (9.0-12.0); RDW Coefficient of Variation 17.6 % (11.5-14.5); RDW Standard Deviation 56.7 fL (36.4-46.3); Red Blood Count 2.12 M/uL (4.2-5.4); White Blood Count 85.91 K/uL (4.8-10.8)
[2021-11-13] MEDS ORDERED: SODIUM CHLORIDE 0.9% 250 ML IV PRN (05:45)
[2021-11-13 06:15] LABS: ALC (manual) 0.77 K/uL (1.2-3.4); ANC (manual) 76.98 K/uL (1.4-6.5); Basophils # (manual) 1.46 K/uL (0-0.2); Basophils % (manual) 1.7 %; Blast # (manual) 0.77 K/uL (0-0); Blast Cells % (manual) 0.9 %; Eosinophils # (manual) 0.77 K/uL (0-0.5); Eosinophils % (manual) 0.9 %; Lymphocytes # (manual) 0.77 K/uL (1.2-3.4); Lymphocytes % (manual) 0.9 %; Metamyelocytes # (manual) 2.92 K/uL (0-0); Metamyelocytes % (manual) 3.4 %; Monocytes # (manual) 0.77 K/uL (0.11-0.59); Monocytes % (manual) 0.9 %; Myelocytes # (manual) 1.46 K/uL (0-0); Myelocytes % (manual) 1.7 %; Neutrophils # (manual) 76.98 K/uL (1.4-6.5); Neutrophils % (manual) 89.6 %
[2021-11-13 06:17] LABS: Albumin Level 1.8 gm/dl (3.4-5.0); BUN Creatinine Ratio 21.4 (10-20); Bilirubin Direct 0.2 mg/dl (0-0.2); Bilirubin,Total 0.4 mg/dl (0.2-1.0); Creatinine Clr Calc Pharmacy 33.2 ml/min; Est GFR (African American) 29.7 ml/min; Est GFR (Non-African American) 25.6 ml/min; Magnesium 2.2 mg/dl (1.7-2.4); Phosphorus 4.1 mg/dl (2.5-4.9); Potassium 4.4 mmol/L (3.5-5.1); Total Protein 3.3 gm/dl (6.0-8.3)
[2021-11-13 06:20] LABS: Calcium 5.7 mg/dl (8.5-10.1)
[2021-11-13 06:28] LABS: Echinocytes 1+; Polychromasia 1+; Toxic Vacuolation Occasional
--- NOTE | 2021-11-13 07:32 | XRay Report ---
XR chest 1V portable CLINICAL HISTORY: Follow-up pleural effusions and bibasilar alveolar opacities. COMPARISON STUDY: 11/12/2021 TECHNIQUE: 1 view of the chest FINDINGS: Single frontal view of the chest demonstrates the cardiomediastinal silhouette to be within normal li mits. There has been interval resolution of mild central vascular congestion. There are again small b ilateral pleural effusions, left greater than right . Bibasilar atelectasis is present. No air bronch ograms are seen. There is no acute osseous pathology. IMPRESSION: Compared to previous examination, there has been resolution of vascular congestion. There are again small bilateral pleural effusions, left greater than right with bibasilar atelectasis. ACT 112: Negative or not required by law. Electronically signed by: Tigre Vasquez M.D. 11/13/2021 7:31 AM
[2021-11-13] MEDS: FLUTICASONE/VILANTEROL 100/25MCG 14 PUFFS/INHALER INH SCH (07:41)
[2021-11-13] MEDS: UMECLIDINIUM BROMIDE 62.5MCG/BLISTER 7 PUFFS/INHALER INH SCH (07:41)
[2021-11-13] MEDS: MIDODRINE HCL 10 MG TAB PO SCH ×3 (07:42→15:31)
[2021-11-13] MEDS: FLUDROCORTISONE ACETATE 0.1 MG TAB PO SCH (07:42)
[2021-11-13] MEDS: CHOLECALCIFEROL 1,000 UNITS 25 MCG TAB PO SCH (07:42)
[2021-11-13] MEDS: DOCUSATE SODIUM 100 MG CAP PO SCH (07:42)
[2021-11-13] MEDS: PANTOprazole 40 MG TAB PO SCH (07:42)
[2021-11-13] MEDS: DULoxetine HCL 20 MG CAP PO SCH (07:42)
[2021-11-13 10:48] LABS: Hematocrit (blood only) 28.3 % (37-47); Hemoglobin 9.3 g/dL (12.0-16.0)
--- NOTE | 2021-11-13 10:53 | Cardiology Progress Note ---
Date of Service November 13, 2021 Assessment & Plan (1) Atrial fibrillation with rapid ventricular response: (2) Hypotension: (3) Gross hematuria: (4) CML (chronic myelocytic leukemia): Plan: Patient with chronic myelogenous leukemia currently in blast crisis place longstanding hypotension at baseline and recurrence of paroxysmal atrial fibrillation, currently with suboptimally controlled rate. She declined option of electrical cardioversion, apparently she had a suboptimal experience in the past. Also, this may be less appropriate as the patient is considering moving to a palliative care route. Would recommend oral amiodarone (200 mg 3 times daily) for rate control option which may have less impact on blood pressure than other negative chronotropes (BB, CCB). Would discontinued digoxin, since this has not been effective for rate control and risk of dig toxicity will increase with concurrent amiodarone in the context of her renal insufficiency. Base phenylephrine infusion on perfusion rather than pressure as this is gradually weaned. Admission and Anticipated Discharge Date Admission Date: November 10, 2021 Subjective Patient notes subjective palpitations from time to time, no other complaints. She denies any chest pain or dyspnea at rest. She is bothered by the in room monitor alarm, asked nursing and they did turn t his off. Physical Exam Physical Exam: No distress. Systolic blood pressure 80-100 mmHg (on phenylephrine). Heart rate 110-130 bpm skin: no ecchymoses or generalized lesions. HEENT: unremarkable. Neck: Jugular venous pulse mildly elevated with increased respiratory variation, no obvious carotid bruits. Lungs: Moderately diminished breath sounds with basilar crackles. No wheezing. Cardiac: Irregular/tachycardic rhythm without obvious murmur. Abdomen: benign. Extremities: no edema, pulses intact. Hands and feet are warm. Radial pulse readily palpable. Neurologic: normal affect and conversation nonfocal. Results & Data ([facility]) Vital Signs (Past 12 Hours) Vital Signs Temp Pulse Resp BP Pulse Ox 11/13/21 09:08 98.1 F 112 H 18 82/60 L 97 11/13/21 08:08 98.2 F 114 H 20 100/50 L 98 11/13/21 07:08 98.2 F 120 H 20 99/47 L 92 11/13/21 06:38 98.1 F 126 H 20 88/53 L 95 11/13/21 06:23 98.1 F 121 H 20 105/41 L 95 11/13/21 06:04 98.4 F 123 H 22 76/57 L 97 11/13/21 05:30 126 H 18 102/36 L 98 11/13/21 04:00 98.4 F 123 H 15 85/48 L 100 11/13/21 03:00 114 H 16 82/52 L 100 11/13/21 02:45 78/56 L 11/13/21 02:00 109 H 18 97/37 L 95 11/13/21 01:30 126 H 17 94/61 L 99 11/13/21 01:00 134 H 16 98 11/13/21 00:45 126 H 18 91/51 L 99 11/13/21 00:15 133 H 17 91/66 L 99 11/12/21 23:45 124 H 16 84/56 L 98 11/12/21 22:45 125 H 17 97/44 L 83 L Laboratory Results Normal electrolytes, BUN 42, creatinine 1.96 (down from 2.03). WBC 85,000, hemoglobin pending, platelet count 410,000. PG Care Time/CCT Total # of Minutes Spent Total Time Spent with Patient: Total time spent is greater than 50% in coordination of care (as documented) at patient's floor/unit and/or counseling patient: Coding Level of Care Code 87424 Subseq Hosp Care Lvl 3 Diagnoses Atrial fibrillation with rapid ventricular response I48.91 Hypotension I95.9 Gross hematuria R31.0 CML (chronic myelocytic leukemia) C92.10
--- NOTE | 2021-11-13 11:28 | Urology Progress Note ---
Date of Service November 13, 2021 Assessment & Plan (1) Extraperitoneal bladder perforation: (2) Bladder hemorrhage: Plan: 66 yo female with multiple medical comorbidies including chronic myelogenous leukemia who presented to hospital on 11/10 with gross hematuria and a CT scan showed significant clot in the bladder. She was initially managed at the bedside but eventually was taken to the OR for cystoscopy, clot evacuation, TURBT. She was noted to have a large extraperitoneal bladder rupture intraoperatively. A large catheter was placed at the end of case. She has had acute blood loss anemia required a total of 8 units of pRBCs currently. Additionally, she atrial fibrillation some hypotension and is currently in a blast crisis. Nephrology is also following. Plan: 1. Maintain kelley catheter due to extraperitoneal bladder perforation. Hematuria continues to improve. Nursing can hand irrigate catheter gently if indicated. CBI contraindicated. If concern for obstruction, please reach out to urology. 2. Continue to trend hgb and Cr. Transfuse as necessary per primary team. Creatinine fortunately is improving. Nephrology following as well. 3. Blood and urine cultures currently with no specific growth. 4. Cardiology following for a fib 5. Heme/onc following for blast crisis 6. Urology to follow closely. If family has any questions, I am happy to talk with them. Admission and Anticipated Discharge Date Admission Date: November 10, 2021 Subjective Patient seen in person on rounds today. Reports feeling pain all over body, specifically back and legs which appears being due to being currently bedridden. Remains tachycardic and hypotensive, which appears mainly due to atrial fibrillation. She denies any lower abdominal pain. Her catheter is draining thin, maroon/ben urine without issue currently. Hgb was 6.3 this morning and she transfused 1U pRBCs with repeat check hgb of 9.3. Cr 1.96 today, was previously 2.03. She states her daughter is coming in today to see her. Review of Systems Review of Systems: 14 point review of systems negative outside of what is listed above in HPI Physical Exam Physical Exam: General: Alert and oriented, mild distress HEENT: Normocephalic, mucous membranes moist, NC in place Cardiovascular: Tachycardic Pulmonary: Nonlabored respirations Abdomen: Nondistended, nontender, soft. Ostomy with stool in bag. : Kelley catheter draining thin, maroon urine with no large clots Extremities: Moves all 4 spontaneously Neuro: No gross deficits Skin: Warm, dry Results & Data ([facility]) Vital Signs (Past 12 Hours) Vital Signs Temp Pulse Resp BP Pulse Ox 11/13/21 09:08 36.7 C 112 H 18 82/60 L 97 11/13/21 08:08 36.8 C 114 H 20 100/50 L 98 11/13/21 07:08 36.8 C 120 H 20 99/47 L 92 11/13/21 06:38 36.7 C 126 H 20 88/53 L 95 11/13/21 06:23 36.7 C 121 H 20 105/41 L 95 11/13/21 06:04 36.9 C 123 H 22 76/57 L 97 11/13/21 05:30 126 H 18 102/36 L 98 11/13/21 04:00 36.9 C 123 H 15 85/48 L 100 11/13/21 03:00 114 H 16 82/52 L 100 11/13/21 02:45 78/56 L 11/13/21 02:00 109 H 18 97/37 L 95 11/13/21 01:30 126 H 17 94/61 L 99 11/13/21 01:00 134 H 16 98 11/13/21 00:45 126 H 18 91/51 L 99 11/13/21 00:15 133 H 17 91/66 L 99 11/12/21 23:45 124 H 16 84/56 L 98 PG Care Time/CCT Total # of Minutes Spent Total Time Spent with Patient: Total time spent is greater than 50% in coordination of care (as documented) at patient's floor/unit and/or counseling patient: [place]oding [place] [address] Subseq Hosp Care Lvl 3 Patient Type Established Diagnoses Extraperitoneal bladder perforation N32.89 Bladder hemorrhage N32.89
--- NOTE | 2021-11-13 11:54 | Nephrology Progress Note ---
Date of Service November 13, 2021 Assessment & Plan (1) Acute kidney injury: (2) Gross hematuria: (3) Hypokalemia: (4) Acute hypotension: (5) Hypocalcemia: Plan: 66-year-old female with stage IIIA CKD b/l cr 1.3 to 1.4, with recent progressive worsening renal function with repeated episodes of GIOVANA, admitted with gross hematuria, acute blood loss anemia requiring 6 units of PRBC, hypotension and AFib with RVR. Creatinine slightly improved and staying around 2.1 although has multiple electrolyte abnormality including hypokalemia, hypocalcemia and hypomagnesemia. Continues to have hematuria, Hb dropped, urine output low with multiple electrolyte abnormality. -- recommend changing IV fluid to bicarb drip, replace calcium as per ICU protocol -- overall prognosis remains guarded and she is leaning towards not considering any further chemotherapy for acute leukemia. Will follow Admission and Anticipated Discharge Date Admission Date: November 10, 2021 Peng Conroy was seen in her room this morning. she denied any symptom but was very emotional. she was seen by Oncology yesterday and plan to start on hydroxyurea for acute leukemic blast crisis however she is now planning to move towards palliative care and not consider any further chemotherapy. Continues to have multiple electrolyte abnormality including persistent hypo calcemia. urine output remains low. Hematuria continues and hemoglobin dropped again to below 7 and currently getting blood transfusion. Remain hypotensive. Review of Systems Review of Systems: ROS Was otherwise negative except mentioned above. Physical Exam Constitutional: WD/WN, vitals as above + acute distress, + ill appearing and + obese Respiratory: Auscultation: + diminished lung sounds Cardiovascular: Rate/Rhythm: + tachycardic and + irregularly irregular Heart Sounds: normal S1 and normal S2 Extremities: + edema Neurologic: no focal motor deficits and not confused Psychiatric: Orientation: alert and oriented x 3 Affect: + anxious affect and + tearful affect Results & Data ([facility]) Vital Signs (Past 12 Hours) Vital Signs Temp Pulse Resp BP Pulse Ox 11/13/21 09:08 36.7 C 112 H 18 82/60 L 97 11/13/21 08:08 36.8 C 114 H 20 100/50 L 98 11/13/21 07:08 36.8 C 120 H 20 99/47 L 92 11/13/21 06:38 36.7 C 126 H 20 88/53 L 95 11/13/21 06:23 36.7 C 121 H 20 105/41 L 95 11/13/21 06:04 36.9 C 123 H 22 76/57 L 97 11/13/21 05:30 126 H 18 102/36 L 98 11/13/21 04:00 36.9 C 123 H 15 85/48 L 100 11/13/21 03:00 114 H 16 82/52 L 100 11/13/21 02:45 78/56 L 11/13/21 02:00 109 H 18 97/37 L 95 11/13/21 01:30 126 H 17 94/61 L 99 11/13/21 01:00 134 H 16 98 11/13/21 00:45 126 H 18 91/51 L 99 11/13/21 00:15 133 H 17 91/66 L 99 PG Care Time/CCT Total # of Minutes Spent Total Time Spent with Patient: Total time spent is greater than 50% in coordination of care (as documented) at patient's floor/unit and/or counseling patient: Coding Level of Care Code 19299 Subseq Hosp Care Lvl 3 Diagnoses Acute kidney injury N17.9 Gross hematuria R31.0 Hypokalemia E87.6 Acute hypotension I95.9 Hypocalcemia E83.51
--- NOTE | 2021-11-13 12:04 | Hospitalist Progress Note ---
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 During my visit with her she stated she had "fought long enough" and was ready to be comfortable. Her daughter and future son-in-law arrived at bedside early afternoon. I spoke with them about the plan - move from ICU to the floor, stop all therapies except for comfort meds, d/c vitals, etc. Pt's daughter stated that Ms Schilling is Anabaptist - will attempt to contact a Anabaptist outreach liaison/administrative supervisor to either call or visit to offer prayer/blessing. Pt's daughter in agreement with her mom's wishes. Dr Ryan had also updated the pt's daughter extensively at bedside. (2) Need for comfort care: Plan: Transition to comfort care pathway tonight. Dilaudid prn pain, ativan sleep/anxiety/agitation, O2, kelley, scop patch/at ropine drops/robinul prn secretions, comfort food, etc. (3) Hemorrhagic shock: Plan: 2nd acute blood loss anemia from gross hematuria. POD #2 s/p cystoscopy with evacuation of large amount of blood in bladder. During the cysto noted to have an extraperitoneal bladder perforation. s/p 8 units of pRBCs during the hospital stay and 1 unit of FFP. Last unit was overnight. Remains on phenylephrine and stress dose hydrocortisone for BP support - both will be stopped due to #1/#2. Could have had element of septic shock as well from UTI. Appreciate commercial attorney, cardiology, urology, nephrology assistance. (4) Extraperitoneal bladder perforation: Plan: discovered during her cystoscopy. bleeding observed may have been extraperitoneal in origin per urology. kelley in place. transitioning to comfort care. (5) Acute kidney injury: Plan: baseline Cr high 1's peak 2.38 2nd to prerenal causes, post-renal, etc (6) Gross hematuria: Plan: Present on admission. Initial Rx in ER - 3-way kelley placed; CBI started. Urine sent for culture. Empiric rocephin 2gm IV daily. 2 units PRBCS given on hospital day #1. Admitted to [place] [facility] [place] in consult - larger kelley catheter placed, hand irrigation performed, numerous clots removed, CBI continues. AM of 11/11/21 -- additional bleeding resulting in worsening hypotension. 2 more units PRBCs given. Went to OR with Dr Harding 11/11/21 -- large amount of clots/blood found in bladder; evacuated. Entire bladder wall with severe inflammation, ulcers, etc. Biopsies taken, Bladder wall fulgurated. Extraperitoneal bladder wall perforation was discovered. Post-op went to PACU - ongoing hypotension, afib RVR, confusion, pain, etc all present. Admitted to ICU from the PACU due to shock/hypotension. Since ICU admission she has continued with bleeding requiring additional units of PRBCs. Urology assistance greatly appreciated. Surgical path neg for cancer. (7) Acute on chronic anemia: Plan: Chronic anemia, baseline Hb 7.5 to 9. 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 Hb <7 at time of presentation. Acute anemia 2nd to active bleeding from bladder. Has received total of 8 units of blood since admission. (8) Acute blood loss anemia: Plan: as above (9) Hypotension: Plan: as above in #1 hemorrhagic ?septic (10) Atrial fibrillation with rapid ventricular response: Plan: ongoing stopping cardiac meds - transitioning to comfort care (11) CML (chronic myeloid leukemia): Plan: Had followed with [facility]. Previous attempts at Rx were unsuccessful - could not tolerate her chemo agents. She has blast cells on cbc. 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 (12) Thrombocytosis: (13) Chronic kidney disease, stage 3 (moderate): (14) Hypothyroidism: (15) Hyperlipidemia: (16) Edema: Plan: 2nd to chronic lymphedema, severe hypoalbuminemia (albumin <2 at time of admission), chronic diastolic CHF, CKD, etc. Can't rule out DVTs. MUCH WORSE last 48 hours following numerous PRBCs. Has developed anasarca. (17) COPD (chronic obstructive pulmonary disease): Plan: with chronic hypoxic resp failure, on home O2. breathing worse today - due to developing pulmonary edema. (18) Gout: (19) GERD (gastroesophageal reflux disease): (20) Chronic respiratory failure with hypoxia, on home O2 therapy: (21) Hypertension: (22) Diabetes mellitus, type 2: (23) DVT prophylaxis: Plan: d/c any SCDs (24) Coagulopathy: Plan: c/w multi-organ failure (25) Hypocalcemia: Plan: Gave support to pt's daughter at bedside. Moving to med/surg for comfort care pathway. DNR/DNI. care d/w Dr Ryan, commercial attorney Admission and Anticipated Discharge Date Admission Date: November 10, 2021 Subjective during AM rounds patient states she just simply feels terrible. she is uncomfortable. she states "I can't do this any longer." we had a lengthy conversation about her medical problems and she realizes that she is rapidly declining. she has no appetite. she is mildly more short of breath today. she is very tired. she confirmed that her daughter is indeed coming to see her today. patient needed 1 unit of PRBCs overnight due to additional drop in hemoglobin to low 6's. Review of Systems Review of Systems: gen - severe fatigue, weakness CV - orthopnea present pulm - cough, dyspnea GI - mild suprapubic pain musculo - b/l hands with severe joint pain Physical Exam Physical Exam: gen - tachypneic today, but able to have a full conversation, very lucid and alert mouth - MM dry neck - JVD present heart - irregularly irregular, s1 s2, no murmurs; tachy lungs - rales R base - worse; mild rales left base; b/l wheezes; increased work of breathing with tachypnea abd - colostomy L abdomen - copious brown liquid stool; BS+; NT ext - 3+ edema/lymphedema b/l, pulses 1+ b/l; cool feet psych - a/o x 3 skin - pallor musculo - right hand with marked swelling - diffuse along with small joints of hands Results & Data Results & Data ([facility]) Vital Signs (Past 12 Hours) Vital Signs Temp Pulse Resp BP Pulse Ox 11/13/21 09:08 36.7 C 112 H 18 82/60 L 97 11/13/21 08:08 36.8 C 114 H 20 100/50 L 98 11/13/21 07:08 36.8 C 120 H 20 99/47 L 92 11/13/21 06:38 36.7 C 126 H 20 88/53 L 95 11/13/21 06:23 36.7 C 121 H 20 105/41 L 95 11/13/21 06:04 36.9 C 123 H 22 76/57 L 97 11/13/21 05:30 126 H 18 102/36 L 98 11/13/21 04:00 36.9 C 123 H 15 85/48 L 100 11/13/21 03:00 114 H 16 82/52 L 100 11/13/21 02:45 78/56 L 11/13/21 02:00 109 H 18 97/37 L 95 11/13/21 01:30 126 H 17 94/61 L 99 11/13/21 01:00 134 H 16 98 11/13/21 00:45 126 H 18 91/51 L 99 11/13/21 00:15 133 H 17 91/66 L 99 Laboratory Results Laboratory Results - last 24 hr 11/10/21 11/12/21 11/12/21 07:00 15:07 17:30 WBC RBC Hgb 8.6 L Hct 26.8 L MCV MCH MCHC RDW Std Deviation RDW Coeff of Bruce Plt Count MPV Absolute Nucleated RBC Nucleated RBC % (auto) Neutrophils % (Manual) Lymphocytes % (Manual) Monocytes % (Manual) Eosinophils % (Manual) Basophils % (Manual) Metamyelocytes % (Man) Myelocytes % (Man) Blast Cells % (Manual) Neutrophils # (Manual) Total Absolute Neuts Lymphocytes # (Manual) Total Abs Lymphocytes Monocytes # (Manual) Eosinophils # (Manual) Basophils # (Manual) Metamyelocytes # (Man) Myelocytes # (Manual) Blast Cells # (Man) Toxic Vacuolation Polychromasia Echinocytes PT INR VBG pH VBG pCO2 VBG pO2 VBG HCO3 VBG O2 Saturation VBG Base Excess Sodium Potassium Chloride Carbon Dioxide Anion Gap BUN Creatinine Est Cr Clr Drug Dosing Est GFR ( Amer) Est GFR (Non-Af Amer) BUN/Creatinine Ratio Glucose Lactate Calcium Phosphorus Magnesium Total Bilirubin Direct Bilirubin AST ALT Alkaline Phosphatase Total Protein Albumin Nasal Screen MRSA (PCR) Negative Blood Type A Negative Antibody Screen NEGATIVE Crossmatch See Detail 11/13/21 11/13/21 11/13/21 02:01 04:47 04:47 WBC 85.91 H* D RBC 2.12 L Hgb 6.3 L* Hct 19.3 L* MCV 91.0 MCH 29.7 MCHC 32.6 RDW Std Deviation 56.7 H RDW Coeff of Bruce 17.6 H Plt Count 410 H MPV 12.0 H Absolute Nucleated RBC 0.39 H Nucleated RBC % (auto) 0.5 Neutrophils % (Manual) 89.6 Lymphocytes % (Manual) 0.9 Monocytes % (Manual) 0.9 Eosinophils % (Manual) 0.9 Basophils % (Manual) 1.7 Metamyelocytes % (Man) 3.4 Myelocytes % (Man) 1.7 Blast Cells % (Manual) 0.9 Neutrophils # (Manual) 76.98 H Total Absolute Neuts 76.98 H Lymphocytes # (Manual) 0.77 L Total Abs Lymphocytes 0.77 L Monocytes # (Manual) 0.77 H Eosinophils # (Manual) 0.77 H Basophils # (Manual) 1.46 H Metamyelocytes # (Man) 2.92 H Myelocytes # (Manual) 1.46 H Blast Cells # (Man) 0.77 H Toxic Vacuolation Occasional Polychromasia 1+ Echinocytes 1+ PT 15.6 H INR 1.6 H VBG pH 7.25 L VBG pCO2 27 L VBG pO2 136 VBG HCO3 11 VBG O2 Saturation < 60.0 VBG Base Excess Not Reportable Sodium Potassium Chloride Carbon Dioxide Anion Gap BUN Creatinine Est Cr Clr Drug Dosing Est GFR ( Amer) Est GFR (Non-Af Amer) BUN/Creatinine Ratio Glucose Lactate Calcium Phosphorus Magnesium Total Bilirubin Direct Bilirubin AST ALT Alkaline Phosphatase Total Protein Albumin Nasal Screen MRSA (PCR) Blood Type Antibody Screen Crossmatch 11/13/21 11/13/21 11/13/21 04:47 10:14 10:14 WBC RBC Hgb 9.3 L D Hct 28.3 L MCV MCH MCHC RDW Std Deviation RDW Coeff of Bruce Plt Count MPV Absolute Nucleated RBC Nucleated RBC % (auto) Neutrophils % (Manual) Lymphocytes % (Manual) Monocytes % (Manual) Eosinophils % (Manual) Basophils % (Manual) Metamyelocytes % (Man) Myelocytes % (Man) Blast Cells % (Manual) Neutrophils # (Manual) Total Absolute Neuts Lymphocytes # (Manual) Total Abs Lymphocytes Monocytes # (Manual) Eosinophils # (Manual) Basophils # (Manual) Metamyelocytes # (Man) Myelocytes # (Manual) Blast Cells # (Man) Toxic Vacuolation Polychromasia Echinocytes PT INR VBG pH VBG pCO2 VBG pO2 VBG HCO3 VBG O2 Saturation VBG Base Excess Sodium 139 Potassium 4.4 Chloride 104 Carbon Dioxide 15 L Anion Gap 20 H BUN 42 H Creatinine 1.96 H Est Cr Clr Drug Dosing 33.2 Est GFR ( Amer) 29.7 Est GFR (Non-Af Amer) 25.6 BUN/Creatinine Ratio 21.4 H Glucose 80 Lactate Calcium 5.7 L* Phosphorus 4.1 Magnesium 2.2 Total Bilirubin 0.4 Direct Bilirubin 0.2 AST 16 ALT 6 L Alkaline Phosphatase 55 Total Protein 3.3 L Albumin 1.8 L Nasal Screen MRSA (PCR) Blood Type A Negative Antibody Screen NEGATIVE Crossmatch See Detail 11/13/21 10:14 WBC RBC Hgb Hct MCV MCH MCHC RDW Std Deviation RDW Coeff of Bruce Plt Count MPV Absolute Nucleated RBC Nucleated RBC % (auto) Neutrophils % (Manual) Lymphocytes % (Manual) Monocytes % (Manual) Eosinophils % (Manual) Basophils % (Manual) Metamyelocytes % (Man) Myelocytes % (Man) Blast Cells % (Manual) Neutrophils # (Manual) Total Absolute Neuts Lymphocytes # (Manual) Total Abs Lymphocytes Monocytes # (Manual) Eosinophils # (Manual) Basophils # (Manual) Metamyelocytes # (Man) Myelocytes # (Manual) Blast Cells # (Man) Toxic Vacuolation Polychromasia Echinocytes PT INR VBG pH VBG pCO2 VBG pO2 VBG HCO3 VBG O2 Saturation VBG Base Excess Sodium Potassium Chloride Carbon Dioxide Anion Gap BUN Creatinine Est Cr Clr Drug Dosing Est GFR ( Amer) Est GFR (Non-Af Amer) BUN/Creatinine Ratio Glucose Lactate 2.0 Calcium Phosphorus Magnesium Total Bilirubin Direct Bilirubin AST ALT Alkaline Phosphatase Total Protein Albumin Nasal Screen MRSA (PCR) Blood Type Antibody Screen Crossmatch PG Care Time/CCT Total # of Minutes Spent Total Time Spent with Patient: Total time spent is greater than 50% in coordination of care (as documented) at patient's floor/unit and/or counseling patient: Coding Level of Care Code 51660 Subseq Hosp Care Lvl 3 Diagnoses Hemorrhagic shock R57.8 Extraperitoneal bladder perforation N32.89 Acute kidney injury N17.9 Gross hematuria R31.0 Acute on chronic anemia D64.9 Acute blood loss anemia D62 Hypotension I95.9 Atrial fibrillation with rapid ventricular response I48.91 CML (chronic myeloid leukemia) C92.10 Thrombocytosis D75.839 Chronic kidney disease, stage 3 (moderate) N18.3 Hypothyroidism E03.9 Hyperlipidemia E78.5 Hyperlipidemia type: unspecified Edema R60.9 COPD (chronic obstructive pulmonary disease) J43.9 COPD type: emphysema Emphysema type: unspecified Gout [id number].[id number] Chronicity: chronic Gout etiology: unspecified cause Gout site: multiple sites GERD (gastroesophageal reflux disease) K21.9 Chronic respiratory failure with hypoxia, on home O2 therapy J96.11; Z99.81 Hypertension I10 Hypertension type: essential hypertension Diabetes mellitus, type 2 E11.9 DVT prophylaxis Z29.9 Need for comfort care Palliative care patient Z51.5 Coagulopathy D68.9 Hypocalcemia E83.51 (1) Gout Chronicity: chronic Gout etiology: unspecified cause Gout site: multiple sites Qualified Code(s): M1A.09X0 - Idiopathic chronic gout, multiple sites, without tophus (tophi) (2) Hyperlipidemia Hyperlipidemia type: unspecified Qualified Code(s): E78.5 - Hyperlipidemia, unspecified (3) COPD (chronic obstructive pulmonary disease) COPD type: emphysema Emphysema type: unspecified Qualified Code(s): J43.9 - Emphysema, unspecified (4) Hypertension Hypertension type: essential hypertension Qualified Code(s): I10 - Essential (primary) hypertension
--- NOTE | 2021-11-13 12:44 | Critical Care Progress Note ---
Date of Service November 13, 2021 Assessment & Plan (1) Admitted to intensive care unit: (2) Status post cystoscopy: (3) Bladder hemorrhage: (4) Acute blood loss anemia: (5) Atrial fibrillation with rapid ventricular response: (6) Acute kidney injury: (7) Diabetes mellitus, type 2: (8) Chronic respiratory failure with hypoxia, on home O2 therapy: (9) Hypotension: (10) Chronic heart failure with preserved ejection fraction: (11) CML (chronic myeloid leukemia): (12) Leukocytosis: (13) Chronic kidney disease, stage 3 (moderate): (14) Thrombocytosis: (15) Hyperlipidemia: (16) On home oxygen therapy: (17) Lung cancer, lower lobe: (18) Hypertension: Plan: Impression: 63-year-old female with significant history of CML, chronic anemia, COPD, lung CA status post left lower lobe resection, asthma, CKD 3, and A. fib who is with acute blood loss in the setting of bladder hemorrhage who is status post cystoscopy with hemodynamic instability in the setting of acute blood loss anemia and A. fib requiring close hemodynamic monitoring, pressor support, blood product administration, etc. Was taken back to the OR yesterday and was found to have extraperitoneal bladder rupture with diffuse bleeding, and underwent clot evacuation. 24-hour events: This morning patient was anemic with hemoglobin 6.3 and transfused 1 unit RBCs. She remains in A. fib with rate 120s to 130s, and remains on phenylephrine for hypotension. She was started on oral amiodarone this morning per cardiology recommendations. Patient is currently leukemic blast crisis and likely represents poor prognosis which she is aware of. Patient's daughter is coming to the bedside at 1400 this afternoon and will further discuss patient's wishes, as she is expressed that she would likely pursue palliative measures after she talks to her daughter. We will reevaluate once the daughter is at bedside and continue with supportive care for now. Recommendations NEURO -encephalopathy appears to be improving. Continue pain management as needed. CARDIAC/VASCULAR -atrial fibrillation with rapid ventricular response. Patient has a longstanding history of chronic A. fib in the outpatient setting and has been on midodrine likely for hypotension. Cardiology consulted and recommend oral amiodarone. Continue digoxin. Patient on steroids for relative adrenal insufficiency. Florinef added yesterday. Continue Dima-Synephrine. The patient declines placement of a central line or arterial line currently and does not want any escalation of care beyond what she is currently receiving. RESPIRATORY -history of COPD and lung cancer status postresection. Oxygen dependent at baseline. Continue supplemental oxygen. Confirmed DNI status. Does not appear bronchospastic currently. Chest x-ray demonstrates low lung volumes with possible small bilateral effusions. May consider diuresis as tolerated GI/NUTRITION -advance diet as tolerated. Nutritional consult RENAL/LYTES -acute on chronic kidney disease with significant metabolic acidosis improved with bicarb. She is established with Dr. Molina in the outpatient setting. Changing IV fluids to bicarb drip per nephrology recommendations. -hemorrhagic bladder, we will follow-up on pathology reports. Most interventions for diffuse hemorrhagic cystitis not possible given the rupture. Continuous bladder irrigation not appropriate given bladder rupture as well. Urology following, continued supportive care. No indication for repeat surgical evaluation currently. Continue gentle bladder irrigation. Shahid will need to remain in place given the rupture for several weeks until outpatient follow-up with urology ENDO -glycemic control per protocol. Continue home thyroxine. On cortisol and Florinef for relative adrenal insufficiency HEME -CML, established with cancer care. Holding chemotherapeutic agents at this point time. White count up to about 100,000. Nucleated red cells and immature granulocytes identified including 9% blasts, patient likely in leukemic blast crisis with risk of developing acute leukemia. Heme-onc consulted and appreciate recommendations. At this time patient is deciding whether to pursue further treatment in favor of palliative approach. She has a meeting with her daughter this afternoon at 1400 were this will be further discussed. Acute blood loss anemiapatient had hemoglobin 6.7 this morning received additional 1 unit RBCs. Repeat hemoglobin 9. Continue to monitor and transfuse as indicated. ID -day #2 Rocephin. Pinpoint urine culture. Await final sensitivity. Continue antibiotics for now. Lactate improved LINES/IV ACCESS - * PIVs x2 * Endurance catheters x2 * Shahid * Patient declines arterial lines and central line currently DVT PROPHYLAXIS - * Hold on chemoprophylaxis in the setting of active bladder hemorrhage. * SCDs CODE STATUS - * Confirmed DNR/DNI. Palliative care may be appropriate depending on input from consultants I have personally spent 54 minutes of critical care time in the direct management of this patient. This is a life/limb threatening event. This includes time spent evaluating patient, direct bedside care, chart review, placing orders, interpretation of diagnostic studies, discussion with consultants, patient, and family members, as well as other required patient management activities. This time is exclusive of all separately billable procedures, and teaching time and separate from and in addition to any other critical care service time. Admission and Anticipated Discharge Date Admission Date: November 10, 2021 Supervising Physician Co-Signing Physician Notes Patient seen and examined. EMR reviewed. Case reviewed and examined with TRANSPORTER DRIVER Michael. Agree with his assessment and plan as noted. The patient's mental status is improved but unfortunately her medical conditions remained stable. An extensive discussion with the patient at the bedside. We discussed that her illnesses are complex and multiple and likely progressing. She states she is very tired and is unclear that she wants to proceed. She acknowledges her underlying diagnosis of untreated cancer which is progressing. She thinks she may be amenable to proceeding to palliative care/hospice but would like to visit with her daughter who is coming in this afternoon. Will reassess goals of therapy once they have had an opportunity to visit but the patient appears to be leaning towards a more palliative approach. We will continue Dima-Synephrine for now. Did discuss with cardiology. I assisted in medical decision making as documented in the nurse practitioner's note above Review of Systems Review of Systems: This morning the patient is alert and oriented x4. Patient has multiple complaints including constant shortness of breath, generalized pain associated with moving, and abdominal tenderness with palpation primarily in the left lower quadrant. She states that her appetite has been relatively poor as well. She currently denies any headache, fevers, dizziness, nausea or vomiting or diarrhea sore throat, congestion, chest pain or palpitations. Physical Exam Constitutional: cooperative; no acute distress Eyes: PERRL, conjunctivae normal, anicteric sclerae ENMT: external ear and nose normal, oropharynx normal Neck: trachea midline, no thyromegaly Respiratory: normal respiratory effort, lungs clear to auscultation Cardiovascular: Rate/Rhythm: + tachycardic and + irregularly irregular Vessels: no JVD bilateral lower extremity pitting edema Gastrointestinal (Abdomen): Abdomen soft nondistended, tender to palpation generalized but primarily in the left lower quadrant. Musculoskeletal: Generalized weakness Neurologic: PERRL, EOMI, accommodation nl, no face palsy, no dysarthria Psychiatric: Orientation: oriented x 3 Mood: + depressed mood and + anxious mood Genitourinary: Indwelling Shahid catheter present. Blood-tinged urine Results & Data Results & Data ([facility]) Vital Signs (Past 12 Hours) Vital Signs Temp Pulse Resp BP Pulse Ox 11/13/21 09:08 36.7 C 112 H 18 82/60 L 97 11/13/21 08:08 36.8 C 114 H 20 100/50 L 98 11/13/21 07:08 36.8 C 120 H 20 99/47 L 92 11/13/21 06:38 36.7 C 126 H 20 88/53 L 95 11/13/21 06:23 36.7 C 121 H 20 105/41 L 95 11/13/21 06:04 36.9 C 123 H 22 76/57 L 97 11/13/21 05:30 126 H 18 102/36 L 98 11/13/21 04:00 36.9 C 123 H 15 85/48 L 100 11/13/21 03:00 114 H 16 82/52 L 100 11/13/21 02:45 78/56 L 11/13/21 02:00 109 H 18 97/37 L 95 11/13/21 01:30 126 H 17 94/61 L 99 11/13/21 01:00 134 H 16 98 11/13/21 00:45 126 H 18 91/51 L 99 Coding Level of Care Code Critical Care 1st 30-74 mins Diagnoses Admitted to intensive care unit Z78.9 Status post cystoscopy Z98.890 Bladder hemorrhage N32.89 Acute blood loss anemia D62 Atrial fibrillation with rapid ventricular response I48.91 Acute kidney injury N17.9 Diabetes mellitus, type 2 E11.9 Chronic respiratory failure with hypoxia, on home O2 therapy J96.11; Z99.81 Hypotension I95.9 Chronic heart failure with preserved ejection fraction I50.32 CML (chronic myeloid leukemia) C92.10 Leukocytosis D72.829 Leukocytosis type: unspecified Chronic kidney disease, stage 3 (moderate) N18.3 Thrombocytosis D75.839 Hyperlipidemia E78.5 Hyperlipidemia type: unspecified On home oxygen therapy Z99.81 Lung cancer, lower lobe C34.30 Hypertension I10 Hypertension type: essential hypertension (1) Hyperlipidemia Hyperlipidemia type: unspecified Qualified Code(s): E78.5 - Hyperlipidemia, unspecified (2) Leukocytosis Leukocytosis type: unspecified Qualified Code(s): D72.829 - Elevated white blood cell count, unspecified (3) Hypertension Hypertension type: essential hypertension Qualified Code(s): I10 - Essential (primary) hypertension
[2021-11-13] MEDS ORDERED: LORazepam 0.5 MG/1 ML VIAL IV STA (12:48)
[2021-11-13] MEDS ORDERED: STAT IV STA (12:53)
[2021-11-13] MEDS ORDERED: SODIUM BICARBONATE 8.4% 75 MEQ in SODIUM CHLORIDE 0.45 % 1,000 ML IV SCH (13:00)
[2021-11-13] MEDS ORDERED: CALCIUM GLUCONATE 10% 3,000 MG in 0.9 % SODIUM CHLORIDE 100 ML IV ONE (13:00)
[2021-11-13] MEDS ORDERED: AMIODARONE 200 MG TAB PO SCH (17:00)
[2021-11-13] MEDS ORDERED: LORazepam 0.5 MG TAB PO PRN (18:21)
[2021-11-13] MEDS ORDERED: ATROPINE SULFATE 1% OP SOLN 5 ML BTL OP PRN (18:21)
[2021-11-13] MEDS ORDERED: GLYCOPYRROLATE 0.2 MG/ML VIAL IV PRN (18:21)
[2021-11-13] MEDS ORDERED: LORazepam 0.5 MG/1 ML VIAL IV PRN (18:21)
[2021-11-13] MEDS ORDERED: SCOPOLAMINE 1 MG TDSY TD SCH (18:45)
[2021-11-14] MEDS: CHECK SCOPOLAMINE PATCH PLACEMENT SCH ×4 (00:55→23:59)
[2021-11-14] MEDS: HYDROmorphone INJ 0.5 MG/0.5 ML SYR IV PRN ×3 (06:21→13:59)
[2021-11-14] MEDS: LEVOTHYROXINE SODIUM 50 MCG TABLET PO SCH (06:22)
[2021-11-14] MEDS: DULoxetine HCL 20 MG CAP PO SCH (07:11)
--- NOTE | 2021-11-14 08:50 | Urology Progress Note ---
Date of Service November 14, 2021 Assessment & Plan (1) Extraperitoneal bladder perforation: (2) Bladder hemorrhage: Plan: 66 yo female with multiple medical comorbidities including chronic myelogenous leukemia who presented to hospital on 11/10 with gross hematuria and a CT scan showed significant clot in the bladder. She was initially managed at the bedside but eventually was taken to the OR for cystoscopy, clot evacuation, TURBT. She was noted to have a large extraperitoneal bladder rupture intraoperatively. A large catheter was placed at the end of case. She has had acute blood loss anemia required a total of 8 units of PRBCs currently. Additionally, remains in atrial fibrillation with hypotension and is currently in a blast crisis. - Patient has now transitioned to comfort measures - continue management per hospitalist medicine. - Maintain Shahid catheter due to extraperitoneal bladder perforation. - Nursing can hand irrigate catheter gently if indicated. CBI contraindicated. - If concern for obstruction, please reach out to urology. - No indication for surgical intervention at this time - Urology will follow peripherally, please call with any issues or questions. Attending note: Independently assessed, evaluated, interviewed, and examined. Patient is now on comfort measures due to acute exacerbation of leukemia with possible blast crisis secondary to cessation of patient's medications. Likely dealing with considerable coagulopathy secondary to leukemia. Patient continues to have dark brown/red urine. Has been draining well without considerable obstruction. Patient is tired/lethargic. At this point we will plan to continue following peripherally with intervention and conversation of different options depending on results and finalization of patient's long-term plans and goals. Patient will will likely be involving palliative care moving forward. Admission and Anticipated Discharge Date Admission Date: November 10, 2021 Subjective Patient seen this AM. She is resting in bed on arrival, arouses easily to her name but is somnolent. Reports feeling tired but offers no additional complaints at this time. Per notes, after discussion with patient and family she has transitioned to comfort measures. Shahid intact, patent and draining ben/maroon urine without issues, some sediment noted. No new labs today. Afebrile, remains hypotensive and tachycardic. Review of Systems Constitutional: as per Subjective / HPI Cardiovascular: as per Subjective / HPI Genitourinary: as per Subjective / HPI Physical Exam Constitutional: no acute distress Respiratory: no labored breathing NC in place Cardiovascular: Rate/Rhythm: + tachycardic Extremities: + edema (bilateral lower extremity edema) Gastrointestinal (Abdomen): Percussion/Palpation: + abdomen tender (mildly tender to palpation generalized) and abdomen soft ostomy in place Musculoskeletal: Head/Neck/Chest: normocephalic and head atraumatic Neurologic: answers questions, but somnolent Psychiatric: Orientation: oriented to person Mood: + depressed mood Genitourinary: Shahid intact and draining ben/maroon urine with some sediment noted Results & Data ([facility]) Vital Signs (Past 12 Hours) Vital Signs Pulse BP Pulse Ox 11/14/21 07:39 112 H 85/50 L 90 PG Care Time/CCT Total # of Minutes Spent Total Time Spent with Patient: Total time spent is greater than 50% in coordination of care (as documented) at patient's floor/unit and/or counseling patient: Coding Level of Care Code 11382 Subseq Hosp Care Lvl 2 Diagnoses Extraperitoneal bladder perforation N32.89 Bladder hemorrhage N32.89
[2021-11-14] MEDS ORDERED: KETOROLAC TROMETHAMINE 15 MG/ML VIAL IV ONE (11:32)
[2021-11-14] MEDS ORDERED: HYDROmorphone INJ 0.5 MG/0.5 ML SYR IV PRN (11:34)
[2021-11-14] MEDS ORDERED: DIGOXIN 0.125 MG TAB PO SCH (16:00)
--- NOTE | 2021-11-14 18:40 | Hospitalist Progress Note ---
Date of Service November 14, 2021 Assessment & Plan (1) Palliative care patient: Plan: Remains on comfort care pathway. Change dilaudid to q1h prn dosing. Toradol 10mg IV x 1 for acute gout of hands which has been painful for her. Cont scop patch, ativan prn, robinul prn, atropine drops prn, kelley, NC O2. Pastoral support is present at bedside. Daughter updated; given support. (2) Need for comfort care: Plan: as above (3) Hemorrhagic shock: Plan: 2nd acute blood loss anemia from gross hematuria. 11/11/2021 - cystoscopy with evacuation of large amount of blood in bladder. During the cysto noted to have an extraperitoneal bladder perforation. s/p 8 units of pRBCs during the hospital stay and 1 unit of FFP. Could have had element of septic shock as well from UTI. (4) Extraperitoneal bladder perforation: Plan: discovered during her cystoscopy. bleeding observed may have been extraperitoneal in origin per urology. (5) Gross hematuria: Plan: Present on admission. Initial Rx in ER - 3-way kelley placed; CBI started. Urine sent for culture. Empiric rocephin 2gm IV daily. 2 units PRBCS given on hospital day #1. Admitted to PCU. [facility] [place] Harding saw in consult - larger kelley catheter placed, hand irrigation performed, numerous clots removed, CBI continues. AM of 11/11/21 -- additional bleeding resulting in worsening hypotension. 2 more units PRBCs given. Went to OR with Dr Harding 11/11/21 -- large amount of clots/blood found in bladder; evacuated. Entire bladder wall with severe inflammation, ulcers, etc. Biopsies taken, Bladder wall fulgurated. Extraperitoneal bladder wall perforation was discovered. Post-op went to PACU - ongoing hypotension, afib RVR, confusion, pain, etc all present. Admitted to ICU from the PACU due to shock/hypotension. While in ICU she continued with bleeding. Needed ongoing transfusional support and pressors. AM 11/13/21 - patient requested that aggressive measures be stopped; requested palliative care measures. Moved to floor and transitioned to comfort care pathway on 11/13/21. Plan: anticipate pt's passing in the next 1-2 days may need dilaudid infusion as early as tonight Admission and Anticipated Discharge Date Admission Date: November 10, 2021 Subjective lethargic during the visit daughter at bedside a instrument repair specialist was at bedside as well I called her name - briefly opened eyes and spoke states "I hurt everywhere" - then went back to sleep her breathing was rapid during the visit no oral intake per her daughter Review of Systems Review of Systems: Unobtainable due to cognitive status Physical Exam Physical Exam: gen - lethargic, tachypnea, uncomfortable skin - pallor neck - JVD present heart - irregular, tachy lungs - b/l rales, tachypnea abd - distended, colostomy L abdomen, NT ext - anasarca all extremities musculo - gout arthritis of b/l hands Results & Data Results & Data ([facility]) Vital Signs (Past 12 Hours) Vital Signs Pulse BP Pulse Ox 11/14/21 07:39 112 H 85/50 L 90 PG Care Time/CCT Total # of Minutes Spent Total Time Spent with Patient: Total time spent is greater than 50% in coordination of care (as documented) at patient's floor/unit and/or counseling patient: Coding Level of Care Code 68358 Subseq Hosp Care Lvl 1 Diagnoses Palliative care patient Z51.5 Need for comfort care Hemorrhagic shock R57.8 Extraperitoneal bladder perforation N32.89 Gross hematuria R31.0
[2021-11-15] MEDS: HYDROmorphone INJ 0.5 MG/0.5 ML SYR IV PRN ×4 (04:10→14:22)
[2021-11-15] MEDS: CHECK SCOPOLAMINE PATCH PLACEMENT SCH ×3 (07:50→22:20)
[2021-11-15] MEDS ORDERED: HYDROmorphone INJ 1 MG/ML SYRINGE IV STA (16:29)
[2021-11-15] MEDS ORDERED: STAT IV Infusion **Titration per Protocol STA (16:30)
[2021-11-15] MEDS ORDERED: HYDROmorphone/NSS 100 MG/100 ML BAG IV SCH (16:30)
--- NOTE | 2021-11-15 16:34 | Hospitalist Progress Note ---
Date of Service November 15, 2021 Assessment & Plan (1) Palliative care patient: Plan: Remains on comfort care pathway. She is having considerable pain this afternoon. Her abdomen is tender. Could easily have peritonitis given her bladder perforation. Plan - * dilaudid 1mg IV x 1 now * ativan 0.5mg IV x 1 now * then start dilaudid infusion; initial basal rate 1mg/hr; titrate by 0.3mg increments q30min * cont other comfort meds Support given to daughter and other family. (2) Need for comfort care: Plan: as above in #1 (3) Hemorrhagic shock: Plan: Present on admission. 2nd acute blood loss anemia from gross hematuria. 11/11/2021 - cystoscopy with evacuation of large amount of blood in bladder. During the cysto noted to have an extraperitoneal bladder perforation. s/p 8 units of pRBCs during the hospital stay and 1 unit of FFP. Could have had element of septic shock as well from UTI. (4) Extraperitoneal bladder perforation: Plan: discovered during her cystoscopy. bleeding observed may have been extraperitoneal in origin per urology. (5) Gross hematuria: Plan: Present on admission. Initial Rx in ER - 3-way kelley placed; CBI started. Urine sent for culture. Empiric rocephin 2gm IV daily. 2 units PRBCS given on hospital day #1. Admitted to PCU. [facility] [place] [facility] Dr Harding saw in consult - larger kelley catheter placed, hand irrigation performed, numerous clots removed, CBI continues. AM of 11/11/21 -- additional bleeding resulting in worsening hypotension. 2 more units PRBCs given. Went to OR with Dr Harding 11/11/21 -- large amount of clots/blood found in bladder; evacuated. Entire bladder wall with severe inflammation, ulcers, etc. Biopsies taken, Bladder wall fulgurated. Extraperitoneal bladder wall perforation was discovered. Post-op went to PACU - ongoing hypotension, afib RVR, confusion, pain, etc all present. Admitted to ICU from the PACU due to shock/hypotension. While in ICU she continued with bleeding. Needed ongoing transfusional support and pressors. AM 11/13/21 - patient requested that aggressive measures be stopped; requested palliative care measures. Moved to floor and transitioned to comfort care pathway on 11/13/21. Plan: anticipate pt's passing in the next 1-2 days titrate dilaudid drip as needed for optimal patient comfort Admission and Anticipated Discharge Date Admission Date: November 10, 2021 Subjective family at bedside they report she has been moaning during the day despite multiple doses of IV dilaudid given she has had her eyes open - occasionally tries to talk - otherwise sleeping/lethargic Review of Systems Review of Systems: Unobtainable due to reduced consciousness Physical Exam Physical Exam: gen - lethargic, tachypnea, uncomfortable (moaning) skin - pallor, very sweaty/warm/perspiring mouth - MM dry neck - JVD present heart - irregular, tachy lungs - b/l rales, tachypnea abd - distended, colostomy L abdomen, tender suprapubic region, tender other regions ext - anasarca x 4 extremities PG Care Time/CCT Total # of Minutes Spent Total Time Spent with Patient: Total time spent is greater than 50% in coordination of care (as documented) at patient's floor/unit and/or counseling patient: Coding Level of Care Code 69431 Subseq Hosp Care Lvl 1 Diagnoses Palliative care patient Z51.5 Need for comfort care Hemorrhagic shock R57.8 Extraperitoneal bladder perforation N32.89 Gross hematuria R31.0
[2021-11-16] MEDS: CHECK SCOPOLAMINE PATCH PLACEMENT SCH (07:28)
--- NOTE | 2021-11-16 09:40 | Death Summary ---
Date of Service November 16, 2021 Pronouncement Note Date and Time of Date of : 11/16/21 Time of : 09:15 Contributing Factors (1) Hemorrhagic shock: (2) Extraperitoneal bladder perforation: Summary Additional details: Per staff, patient CTB at 0915. At patient's beside at 0928: Pupils fixed and dilated. Pulseless. Not breathing. No heart sound. Family (Daughter-Skyla) notified. They will need to call back with home and uncertain at this time if they wish to come view the body--> will call back in to nurse. Additional Data Attending physician: William Shannon MD Coding Level of Care Code None Diagnoses Hemorrhagic shock R57.8 Extraperitoneal bladder perforation N32.89
--- NOTE | 2021-11-16 13:35 | Discharge Summary ---
Date of Service November 16, 2021 Admission HPI Per Admitting Provider 66yo female with chronic hypoxic respiratory failure 2nd to COPD on home O2 2 Liters, h/o lung cancer s/p LLL lobectomy, CKD stage 3, CML not on treatment, chronic anemia, T2DM not on treatment, gout, and permanent a.atiya presents with the acute onset of lower abdominal pain with gross hematuria and passage of multiple clots starting last night about dinner time. She continued to pass the bloody urine and clots for the remainder of the evening and throughout the night. Her pain was constant but she had waves of severe pain. Pain is across the entire lower abdomen but worst in the suprapubic region. No fevers but has had chills. States she has dyspnea but it is chronic and unchanged. No nausea or emesis. Up until yesterday evening had been eating/drinking. Denies flank pain. Denies back pain, although she had an episode of severe pain in her back about 1-1.5 weeks ago that was self-limited. Additionally, she had 1 episode of gross hematuria on Thursday of this week but it only occurred once and resolved with her urine returning to normal color later that day. With respect to her CML she sees the [facility], Ms Shante Singerjasondavid. Has not seen them in several months. She is not on treatment for the CML. Principal Diagnosis 1. Hemorrhagic shock 2. Gross hematuriaexact etiology unclear but made worse by bladder rupture Discharge Exam seen on 927 Per nurse, when she went to round on this patient at 0915, she was not breathing Per my assessment: Pupils fixed and dilated not breathing- no chest rise pulseless no heart sounds upon auscultation Discharge Data Allergies Allergy/AdvReac Type Severity Reaction Status Date / Time diltiazem Allergy Severe SHORTNESS Verified 11/10/21 07:20 OF BREATH AND SWELLING OF HANDS AND FACE nut - unspecified Allergy Severe Wheezing Verified 11/10/21 07:20 peanut Allergy Severe Wheezing Verified 11/10/21 07:20 Yeast Allergy Severe Wheezing Verified 11/10/21 07:20 Penicillins Allergy Intermediate WELTS IN Verified 11/10/21 07:20 MOUTH AND SPREAD TO BODY adhesive Allergy Mild BLISTERS Verified 11/10/21 07:20 latex Allergy Mild RASH Verified 11/10/21 07:20 indomethacin Allergy Unknown per pulm Verified 11/10/21 07:20 note tree and shrub pollen Allergy Unknown ELM Verified 11/10/21 07:20 TREE-RASH BLISYERS HANDS ARMS FEET allopurinol Allergy Unknown Unverified 11/10/21 07:20 febuxostat [From Uloric] Allergy Unknown Verified 11/10/21 07:20 oxycodone Allergy Unknown Verified 11/10/21 07:20 codeine AdvReac Mild N&V&GI PAIN Verified 11/10/21 07:20 paroxetine AdvReac Mild GI SYMPTOMS Verified 11/10/21 07:20 varenicline AdvReac Mild GI Verified 11/10/21 07:20 SYMPTOMS,HALLUCINATIONS linaclotide [From Linzess] AdvReac Unknown CAUSED Verified 11/10/21 07:20 ASTHMA ATTACK Consultations 11/10/21 07:35 ED Decision to Admit Stat 11/10/21 08:15 Consult Urology Routine Assessment & Plan (1) Extraperitoneal bladder perforation: (2) Bladder hemorrhage: Plan: 66 yo female with multiple medical comorbidities including chronic myelogenous leukemia who presented to hospital on 11/10 with gross hematuria and a CT scan showed significant clot in the bladder. She was initially managed at the bedside but eventually was taken to the OR for cystoscopy, clot evacuation, TURBT. She was noted to have a large extraperitoneal bladder rupture intraoperatively. A large catheter was placed at the end of case. She has had acute blood loss anemia required a total of 8 units of PRBCs currently. Additionally, remains in atrial fibrillation with hypotension and is currently in a blast crisis. - Patient has now transitioned to comfort measures - continue management per hospitalist medicine. - Maintain Kelley catheter due to extraperitoneal bladder perforation. - Nursing can hand irrigate catheter gently if indicated. CBI contraindicated. - If concern for obstruction, please reach out to urology. - No indication for surgical intervention at this time - Urology will follow peripherally, please call with any issues or questions. Attending note: Independently assessed, evaluated, interviewed, and examined. Patient is now on comfort measures due to acute exacerbation of leukemia with possible blast crisis secondary to cessation of patient's medications. Likely dealing with considerable coagulopathy secondary to leukemia. Patient continues to have dark brown/red urine. Has been draining well without considerable obstruction. Patient is tired/lethargic. At this point we will plan to continue following peripherally with intervention and conversation of different options depending on results and finalization of patient's long-term plans and goals. Patient will will likely be involving palliative care moving forward. 11/11/21 08:03 Consult Hematology Routine PLAN: Marycarmen Schilling is a pleasant, very unfortunate 66-year-old female patient who was admitted to [facility] and admitted to the hospitalist service for subacute-onset hematuria. The patient underwent cystoscopy and cystogram, extensive clot evacuation, transurethral resection of bladder tumor with pathology pending. The bladder tumor is a least of her problems. She is currently in blast crisis from untreated chronic myelogenous leukemia. The patient was last seen by Shante Yoder, our physician's hygiene assistant in mid July. Based on her documentation and corroborated with Marycarmen at bedside, she has been intolerant to TKI therapy to date. She has been on Gleevec, dasatinib, and bosutinib -- all of which were discontinued on the patient's own accord because of intolerance. Clearly, she has a fair amount of immaturity seen on white cell differential, which indicates ongoing blast crisis. During hospitalization, the only thing we can do at this point is to place her on low- dose hydroxyurea 500 mg to start initially and then titrate her dosing upward with daily peripheral blood count determination. The patient understands the gravity of the situation and at some point need to perhaps try another TKI. Nilotinib comes to mind as an alternative moving forward. Without further intervention, Marycarmen will succumb to acute leukemia. Clinical circumstance was discussed extensively with Dr. Sutherland and we will continue to follow Marycarmen periodically during the hospitalization. Thank you very much for allowing me to participate in her care. If you have any questions or concerns, please feel free to contact me at any time. 11/11/21 12:55 Consult Cardiology Routine Assessment & Plan (1) Atrial fibrillation with rapid ventricular response: (2) Hypotension: (3) Gross hematuria: (4) CML (chronic myelocytic leukemia): Plan: Patient with chronic myelogenous leukemia currently in blast crisis place longstanding hypotension at baseline and recurrence of paroxysmal atrial fibrillation, currently with suboptimally controlled rate. She declined option of electrical cardioversion, apparently she had a suboptimal experience in the past. Also, this may be less appropriate as the patient is considering moving to a palliative care route. Would recommend oral amiodarone (200 mg 3 times daily) for rate control option which may have less impact on blood pressure than other negative chronotropes (BB, CCB). Would discontinued digoxin, since this has not been effective for rate control and risk of dig toxicity will increase with concurrent amiodarone in the context of her renal insufficiency. Base phenylephrine infusion on perfusion rather than pressure as this is gradually weaned. 11/12/21 09:27 Consult Nephrology Routine Assessment & Plan (1) Acute kidney injury: (2) Gross hematuria: (3) Hypokalemia: (4) Acute hypotension: (5) Hypocalcemia: Plan: 66-year-old female with stage IIIA CKD b/l cr 1.3 to 1.4, with recent progressive worsening renal function with repeated episodes of GIOVANA, admitted with gross hematuria, acute blood loss anemia requiring 6 units of PRBC, hypotension and AFib with RVR. Creatinine slightly improved and staying around 2.1 although has multiple electrolyte abnormality including hypokalemia, hypocalcemia and hypomagnesemia. Continues to have hematuria, Hb dropped, urine output low with multiple electrolyte abnormality. -- recommend changing IV fluid to bicarb drip, replace calcium as per ICU protocol -- overall prognosis remains guarded and she is leaning towards not considering any further chemotherapy for acute leukemia. Will follow Procedures Performed Operation Date: 11/11/21 09:55 Actual Procedures p extensive clot evacuation, transurethral resection of bladder tumor, large, and extensive fulguration - Eleazar Harding, DO s Cystoscopy with cystogram, - Eleazar Harding, DO Ordered Studies 11/10/21 07:42 CT abd pelvis wo con Stat IMPRESSION: 1. Markedly distended bladder which is primarily filled with hyperdense material suggesting blood clot. Recommend follow-up nonemergent cystoscopy to exclude the possibly of underlying bladder mass which could be obscured by the large blood clot. There is a Kelley catheter which appears in good position within the bladder. 2. Moderate bilateral hydroureteronephrosis which is likely secondary to the distended bladder. No renal or ureteral stones identified. 3. Moderate to severe body wall edema which has progressed. 4. Additional findings as described above. 11/11/21 FL retrograde includes kub Routine FL retrograde includes kub CLINICAL HISTORY: CYSTO COMPARISON STUDY: None FLUOROSCOPY TIME: 75 second. FLUOROSCOPIC IMAGES: 4 FINDINGS: There is evidence for contrast within the bladder on the last image. The bladder has a very irregular configuration on this image. IMPRESSION: Evidence for irregular bladder contour. Please see postsurgical report for further evaluation. 11/11/21 21:35 US point of care ultrasound Urgent Hospital Course (1) Hemorrhagic shock: Present on admission. 2nd acute blood loss anemia from gross hematuria. 11/11/2021 - cystoscopy with evacuation of large amount of blood in bladder. During the cysto noted to have an extraperitoneal bladder perforation. s/p 8 units of pRBCs during the hospital stay and 1 unit of FFP. Could have had element of septic shock as well from UTI. (2) Bladder hemorrhage: Present on admission. CT scan with large clot seen in the bladder Initial Rx in ER - 3-way kelley placed; CBI started. Urine sent for culture. Empiric rocephin 2gm IV daily. 2 units PRBCS given on hospital day #1. Admitted to PCU. [facility] Urology Dr Harding saw in consult - larger kelley catheter placed, hand irrigation performed, numerous clots removed, CBI continues. AM of 11/11/21 -- additional bleeding resulting in worsening hypotension. 2 more units PRBCs given. Went to OR with Dr Harding 11/11/21 -- large amount of clots/blood found in bladder; evacuated. Entire bladder wall with severe inflammation, ulcers, etc. Biopsies taken, Bladder wall fulgurated. Extraperitoneal bladder wall perforation was discovered. Post-op went to PACU - ongoing hypotension, afib RVR, confusion, pain, etc all present. Admitted to ICU from the PACU due to shock/hypotension. While in ICU she continued with bleeding. Needed ongoing transfusional support and pressors. AM 11/13/21 - patient requested that aggressive measures be stopped; requested palliative care measures. Moved to floor and transitioned to comfort care pathway on 11/13/21. utilized dilaudud gtt and ativan CTB ~915 by staff Patient seen by myself at 0928. Pupils fixed and dilated. Not breathing. Pulseless. No heart sounds. Family notified (3) Extraperitoneal bladder perforation: discovered during her cystoscopy. bleeding observed may have been extraperitoneal in origin per urology. (4) CML (chronic myeloid leukemia): Patient with underlying CML. Seen by her established oncologist (Dr. Hernandez) and this is his report: Marycarmen Schilling is a pleasant, very unfortunate 66-year-old female patient who was admitted to [facility] and admitted to the hospitalist service for subacute-onset hematuria. The patient underwent cystoscopy and cystogram, extensive clot evacuation, transurethral resection of bladder tumor with pathology pending. The bladder tumor is a least of her problems. She is currently in blast crisis from untreated chronic myelogenous leukemia. The patient was last seen by Shante Yoder, our physician's hygiene assistant in mid July. Based on her documentation and corroborated with Marycarmen at bedside, she has been intolerant to TKI therapy to date. She has been on Gleevec, dasatinib, and bosutinib -- all of which were discontinued on the patient's own accord because of intolerance. Clearly, she has a fair amount of immaturity seen on white cell differential, which indicates ongoing blast crisis. During hospitalization, the only thing we can do at this point is to place her on low- dose hydroxyurea 500 mg to start initially and then titrate her dosing upward with daily peripheral blood count determination. The patient understands the gravity of the situation and at some point need to perhaps try another TKI. Nilotinib comes to mind as an alternative moving forward. Without further intervention, Marycarmen will succumb to acute leukemia. Clinical circumstance was discussed extensively with Dr. Sutherland and we will continue to follow Marycarmen periodically during the hospitalization. Total Time Total Time Spent Total Time Spent (In Minutes): 35 min including calling family and preparation of documentation Discharge Plan Discharge Items Patient Disposition: Other Date/Time: 11/16/21 09:15 Coding Level of Care Code D/C DAY MANAGEMENT >30 MINS Diagnoses Hemorrhagic shock R57.8 Extraperitoneal bladder perforation N32.89 CML (chronic myeloid leukemia) C92.10 Bladder hemorrhage N32.89
== END 2021-11-16 12:30 | disposition expired | DRG 663 ==
LOC: ED 05:28 → SUATTDRO 08:27 → EDINP 08:27 → 2S 10:36 → 1E 11-11 14:41 → 3E 11-13 15:41
DX: E83.51 Hypocalcemia; C92.10 Chronic myeloid leukemia, BCR/ABL-positive, not having achieved remission; Z99.81 Dependence on supplemental oxygen; I48.21 Permanent atrial fibrillation; Z79.82 Long term (current) use of aspirin; E11.22 Type 2 diabetes mellitus with diabetic chronic kidney disease; N39.0 Urinary tract infection, site not specified; Z83.3 Family history of diabetes mellitus; Z87.440 Personal history of urinary (tract) infections; Q61.02 Congenital multiple renal cysts; D62 Acute posthemorrhagic anemia; N32.89 Other specified disorders of bladder; I48.0 Paroxysmal atrial fibrillation; C91.92 Lymphoid leukemia, unspecified, in relapse; N17.9 Acute kidney failure, unspecified; N18.30 Chronic kidney disease, stage 3 unspecified; Z66 Do not resuscitate; I13.0 Hypertensive heart and chronic kidney disease with heart failure and stage 1 through stage 4 chronic kidney disease, or unspecified chronic kidney disease; E83.42 Hypomagnesemia; Z51.5 Encounter for palliative care; Z85.118 Personal history of other malignant neoplasm of bronchus and lung; E03.9 Hypothyroidism, unspecified; I95.89 Other hypotension; Z96.653 Presence of artificial knee joint, bilateral; D68.8 Other specified coagulation defects; J44.9 Chronic obstructive pulmonary disease, unspecified; J96.11 Chronic respiratory failure with hypoxia; I50.32 Chronic diastolic (congestive) heart failure; E87.6 Hypokalemia; M10.9 Gout, unspecified; E87.2 Acidosis; R57.8 Other shock